=== PATIENT | male | born 1945 | race Caucasian/White ===

== ENCOUNTER 2018-10-30 00:49 | Outpatient (CLI) | payer MEDICARE, OTHER, SELFPAY ==
--- NOTE | 2018-10-30 13:15 | DI.CTLCSR_ITS ---
SYMPTOMS/DIAGNOSIS: CIGARETTE SMOKER, F17.210 CT CHEST, LOW DOSE LUNG CANCER SCREENING PROTOCOL: CT examination of the chest was performed utilizing low dose lung cancer screening protocol. Images obtained through the upper abdomen show unremarkable appearance of visualized portions of liver, spleen and pancreas and a previously described large left renal cyst seen on CT of 06/02/13. No mediastinal mass or adenopathy seen. Right clavicle fixation hardware noted in position. Tracheobronchial tree appears intact. Lungs show diffuse central lobular emphysematous changes, most marked in the lung apices. No pleural effusion. No pulmonary mass, nodule or consolidation. CONCLUSION: Severe emphysematous changes. No pulmonary nodule identified. Category 1. Continue annual screening with LDCT in 12 months. Lung-RAD Category: Category 1- Negative Lung- RAD Management of Findings: Continue annual LDCT screening in 12 months
== END 2018-10-30 01:09 ==
PROVIDERS: PCP Family Medicine; Visit Provider Family Medicine
DX: Z12.2 Encounter for screening for malignant neoplasm of respiratory organs (principal); F17.210 Nicotine dependence, cigarettes, uncomplicated; J43.8 Other emphysema
CPT/HCPCS: G0297

== ENCOUNTER → 2018-12-17 10:42 | Outpatient (BNVA) | payer MEDICARE, OTHER, SELFPAY | PROVIDERS: PCP Family Medicine; Referring Provider Family Medicine; Visit Provider Physical Therapy Assistant | DX: Z12.11 Encounter for screening for malignant neoplasm of colon (principal); Z86.010 Personal history of colon polyps; J44.9 Chronic obstructive pulmonary disease, unspecified; F17.210 Nicotine dependence, cigarettes, uncomplicated ==

== ENCOUNTER 2018-12-31 09:46 | Outpatient (CLI) | payer MEDICARE, OTHER, SELFPAY | END 2018-12-31 10:06 | PROVIDERS: PCP Family Medicine; Visit Provider Surgery | DX: Z12.11 Encounter for screening for malignant neoplasm of colon (principal); Z86.010 Personal history of colon polyps; F17.210 Nicotine dependence, cigarettes, uncomplicated; J44.9 Chronic obstructive pulmonary disease, unspecified; E78.5 Hyperlipidemia, unspecified; Z01.810 Encounter for preprocedural cardiovascular examination; I10 Essential (primary) hypertension | CPT/HCPCS: 93005; 93010 ==

== ENCOUNTER 2019-01-08 06:09 | Day surgery (SDC) | payer MEDICARE, OTHER, SELFPAY ==
[2018-12-31 10:19] VITALS: BP 107/76; PULSE 73; RESP 18; TEMP 36.4; O2SAT 98
[2019-01-08 06:15] VITALS: BP 103/70; PULSE 79; RESP 20; TEMP 36.5; O2SAT 97
[2019-01-08] MEDS: Lactated Ringers 1,000 ML 80 ML IV (06:52)
--- NOTE | 2019-01-08 07:49 | BOWEL_PTH ---
PATIENT: Klever Holguin LOC: [facility] U#:[id number] AGE/SX: 73/M ROOM: RE01/08/[address]: Marya Stinson MD : 1945 BED: DIS: 01/08/2019 SPEC #: [id number] RECD: 01/08/19 12:49 STATUS: LIDIA REQ #: [id number] SMILEY: 01/08/19 07:[address]: Marya Stinson DEPT: Surgical Specimen RECD BY: Kaylah Stafford ENTERED: 01/08/19 12:49 SP TYPE: Bowel OTHR DR: Peter Boone Tissues: 1 - BIOPSY BOWEL 2 - BIOPSY BOWEL Procedures: GROSS AND MICRO LEVEL 4 Comments: [id number]
--- NOTE | 2019-01-08 08:19 | W.PM.DSUDISC ---
Discharge Plan Disposition Patient Disposition: HOME Condition: Good Discharge Details Attending Provider: Marya Stinson Primary Care Provider: Peter Boone Home Meds and New Rx's Prescriptions: Continued propranolol 80 mg capsule,extended release 24 hr 80 mg PO DAILY RF: 0 aspirin 81 MG tablet,delayed release (DR/EC) 81 mg PO DAILY RF: 0 methocarbamol 750 MG tablet 750 mg PO TID RF: 0 Chantix Continuing Month Yuri 1 MG tablet 1 mg PO BID RF: 0 cholecalciferol (vitamin D3) 2,000 UNIT tablet 2,000 unit PO HS RF: 0 primidone 250 mg tablet 250 mg PO TID Qty: 270 RF: 3 primidone 50 MG tablet 50 mg PO TID RF: 0 Discontinued polyethylene glycol 3350 17 gram/dose powder 238 g PO ONCE Qty: 238 RF: 0 bisacodyl [Dulcolax (bisacodyl)] 5 mg tablet,delayed release (DR/EC) 5 mg PO ONCE Qty: 4 RF: 0 Discharge Instructions Instructions: Colonoscopy (DC) Additional Instructions: Two small polyps were removed. My office will send a letter with biopsy results. Plan for a follow up colonoscopy in three years. Activity:: Activity as Tolerated Diet:: As Tolerated Discharge Orders Discharge Orders: Discharge Order (Routine); Ordered 01/08/19 Ordered By: Marya Stinson
[2019-01-08 08:31] VITALS: BP 95/65; PULSE 70; RESP 16; TEMP 36.6; O2SAT 94
--- NOTE | 2019-01-08 09:49 | ROE_ITS ---
REPORT OF OPERATIVE PROCEDURE DATE OF PROCEDURE January 08, 2019 PREOPERATIVE DIAGNOSIS History of colon polyps. POSTOPERATIVE DIAGNOSES 1. Colon polyps x2. 2. Mild diverticulosis. PROCEDURE Colonoscopy with polypectomy. SURGEON Marya Stinson M.D. ANESTHESIA Monitored Anesthesia Care. INDICATIONS This is a 73-year-old man who had adenomatous polyps removed in 2016. He presents for routine followu p. His mother was treated for colon cancer. PROCEDURE DESCRIPTION He was placed in the left Thomas position. Propofol was titrated to sedation. Digital rectal examinatio n revealed no abnormities. The scope was advanced to the cecum without difficulty. The ileocecal valv e and the appendiceal orifice were clearly identified. His prep was excellent. The scope with slowly withdrawn with no abnormalities seen within the ascending or transverse colon. At the splenic flexure , there was a less than 1-cm polyp that was snared and retrieved for Pathology. There was also a poly p in the sigmoid region that was smaller and removed with snare polypectomy. The patient was noted to have mild diverticular change in the sigmoid region. The rectum was normal, including on retroflexed view. He tolerated the procedure well and was stable to Recovery. He will need a followup colonoscopy in three years. CC: Peter Boone M.D.
== END 2019-01-08 09:10 | disposition home or self-care (01) ==
PROVIDERS: PCP Family Medicine; Visit Provider Surgery
PROC: 0DJD8ZZ Inspection of Lower Intestinal Tract, Via Natural or Artificial Opening Endoscopic (ICD-10-PCS; CPT 45378; principal; 2019-01-08 07:30)
DX: Z12.11 Encounter for screening for malignant neoplasm of colon (principal); Z86.010 Personal history of colon polyps; D12.3 Benign neoplasm of transverse colon; D12.5 Benign neoplasm of sigmoid colon; K57.30 Diverticulosis of large intestine without perforation or abscess without bleeding; J44.9 Chronic obstructive pulmonary disease, unspecified; F17.210 Nicotine dependence, cigarettes, uncomplicated; G47.33 Obstructive sleep apnea (adult) (pediatric)
CPT/HCPCS: 45385; 88305

== ENCOUNTER 2020-02-11 09:11 | Emergency (ER) | payer MEDICARE, OTHER, SELFPAY ==
[2020-02-11 09:16] VITALS: BP 119/90; PULSE 85; RESP 18; TEMP 36.5; O2SAT 99
--- NOTE | 2020-02-11 09:24 | ED.GENADUL_ITS ---
Discharge Plan Disposition Patient Disposition: HOME Condition: Stable Discharge Details Chief Complaint: Orthopedic Clinical Impression: Fall, Contusion of knee, left Primary Care Provider: Peter Boone ED Provider: Gina Gifford Home Meds and New Rx's Prescriptions: Continued propranolol 80 mg capsule,extended release 24 hr 80 mg PO DAILY RF: 0 aspirin 81 MG tablet,delayed release (DR/EC) 81 mg PO DAILY RF: 0 methocarbamol 750 MG tablet 750 mg PO TID RF: 0 Chantix Continuing Month Yuri 1 MG tablet 1 mg PO BID RF: 0 cholecalciferol (vitamin D3) 2,000 UNIT tablet 2,000 unit PO HS RF: 0 primidone 250 mg tablet 250 mg PO TID Qty: 270 RF: 3 primidone 50 MG tablet 50 mg PO TID RF: 0 Discharge Instructions Instructions: Contusion in Adults (ED), Knee Pain (ED) Additional Instructions: Rest, ice, use Art wrap, elevation when sitting or laying down. Today your x- rays were within normal limits. Follow up with primary care provider in 3-5 days. Return to ED sooner if any worsening or concerns. Increase oral fluids. Please take Tylenol with food every 4-6 hours as needed for pain and swelling. Referrals: Peter Boone [Primary Care Provider] - Medical Decision Making 74-year-old male presents to the ER with left knee pain. Patient states that he stood up from a sitting position approximately 2 weeks ago became dizzy and fell forward onto his bilateral knees. Since then he has been complaining of intermittent left knee pain. Denies any other falls, denies chest pain, shortness of breath or any other injuries. Upon initial exam he does have a contusion noted to the medial aspect of his left anterior knee. No obvious deformity, swelling or crepitus palpated. Does have mild tenderness with passive range of motion. Patient was ambulatory upon arrival to the ER. He states that he had a PCP appointment today which they canceled told him to come to the ER. Patient is a smoker does have a history of COPD, sleep apnea, essential tremor, chronic back pain and hyperlipidemia. 04 11: This time three-view x-ray of left knee ordered, offered Tylenol which patient declined at this time. No further work-up needed at this time due to no complaints of chest pain, shortness of breath or any other symptoms. EXAM: XR KNEE LT 3V AP,LAT,ESEQUIEL CLINICAL HISTORY: fall 2 weeks ago, r/o fracture. TECHNIQUE: 2D digital imaging was performed. COMPARISON: No exams were available for comparison FINDINGS: BONES: No acute fracture is present. No bony destructive lesion is seen. There is spurring at the quadriceps insertion on the patella. JOINTS: The joint spaces are well maintained. The knee is normally aligned. No joint effusion is seen. SOFT TISSUE: Vascular calcifications. IMPRESSION: No acute abnormality. He was given an Art bandage prior to discharge ambulatory in department discussed home care including rest, ice, compression, elevation and changing positions from a sitting to standing moving slowly. Discussed strict return instructions, verbalized understanding. HPI General Mode of arrival: ambulatory . Date/Time Provider Initiated Documentation: 02/11/20 09:13 . Limitations to Documentation: physical limitation (Hard of hearing) . Information obtained by: patient . HPI Narrative: 74-year-old male presents to the ER with left knee pain. Patient states that he stood up from a sitting position approximately 2 weeks ago became dizzy and fell forward onto his bilateral knees. Since then he has been complaining of intermittent left knee pain. Denies any other falls, denies chest pain, shortness of breath or any other injuries. Upon initial exam he does have a contusion noted to the medial aspect of his left anterior knee. No obvious deformity, swelling or crepitus palpated. Does have mild tenderness with passive range of motion. Patient was ambulatory upon arrival to the ER. He states that he had a PCP appointment today which they canceled told him to come to the ER. Patient is a smoker does have a history of COPD, sleep apnea, essential tremor, chronic back pain and hyperlipidemia. Related Data Home Medications Medication Instructions Recorded Confirmed aspirin 81 mg PO DAILY tab-cap 12/29/12 01/08/19 Chantix Continuing Month Yuri 1 mg PO BID tab-cap 11/10/14 01/08/19 cholecalciferol (vitamin D3) 2,000 unit PO HS 11/10/14 01/08/19 methocarbamol 750 mg PO TID tab-cap 11/10/14 01/08/19 primidone 50 mg PO TID 03/14/17 01/08/19 propranolol 80 mg capsule,24 80 mg PO DAILY 11/25/18 01/08/19 hr,extended release primidone 250 mg tablet 250 mg PO TID #270 tab-cap 12/17/18 01/08/19 Allergies Allergy/AdvReac Type Severity Reaction Status Date / Time aspirin AdvReac Intermediate GI UPSET Verified 12/17/18 10:57 General Stated Complaint: Orthopedic NAWAF: 4 Review of Systems Narrative: Constitutional: Negative for weight loss, alert and oriented, well groomed, normal body habitus, appears comfortable. HEENT: Denies trauma, headaches, blurry vision, nasal discharge, sore throat, trouble swallowing. Chest: Denies chest pain, palpitations, irregular rhythm, hypertension. Respiratory: Denies Shortness of breath, hemoptysis. GI: Denies abdominal pain, nausea, vomiting, diarrhea, constipation. : Denies dysuria, hematuria, flank pain, rectal bleeding. Musculoskeletal: Contusion noted to his left anterior knee status post fall 2 weeks ago. Neuro: Denies recurrent dizziness, blurry vision, weakness, syncope, headache or facial numbness. Hematologic: Denies easy bruising, intolerance to heat or cold, hair loss. [facility] Medical History Chronic low back pain (Chronic) Cigarette smoker (Chronic) Colon polyps (Resolved) 01/08/19 w/ Dr Marya Stinson, [facility], tubular adenoma, repeat 3 yrs 01/29/16 w/ Dr. Aleyda Irizarry, 4 tubular adenoma's, repeat 3 years COPD (chronic obstructive pulmonary disease) (Chronic) Hearing loss (Chronic) History of broken collarbone (Acute) right collarbone fx with hardware- per pt 6 years ago Hyperlipidemia (Chronic) Sleep apnea (Chronic) Tremor (Chronic) Surgical History Hx of thumb surgery (Acute) [address]. [address] in [address] Family History Mother Colon cancer Social History Smoking/Tobacco Use Status: Former Tobacco Use Tobacco: How many years used: 50 Alcohol Intake: never Drug use: Never Substance use type: does not use Details: QUIT SMOKING A MONTH AGO, CURRENTLY USING CHANTIX TO QUIT Do you feel safe at home: Yes Do you feel safe in your relationship?: Yes Additional Social history: Exam Narrative Exam Narrative: Constitutional: Alert and oriented x3. Appears stated age. Normal body habitus. Head: Normocephalic, no trauma. Eyes: Pupils PERRLA, Red reflex noted, EOM's intact. Eyelids symmetrical without lesions, discharge, or swelling. ENT: Bilateral TM's WNL, External ear normal to inspection, no mastoid TTP, swelling, or erythema, Nasal turbinates WNL, no nasal discharge. Normal dentition, Posterior pharynx WNL, no exudate. Chest: RRR, Normal S1, S2, distal pulses intact. Resp: Lungs clear to auscultation bilaterally, no wheezes, rales, or rhonchi. Musculoskeletal: Normal gait, 5/5 strength to all four extremities. No crepitus, swelling, erythema, or deformity noted to left knee. Skin: Contusion noted to medial aspect of left anterior knee. Capillary refill less than 2 sec. Neurologic: Cranial nerves II-XII intact. Alert and oriented x 3. DTR's intact. Hematologic/Lymphatic: No ecchymosis, no lymphadenopathy. Course Vital Signs Vital signs: Vital Signs Temperature 36.5 C 02/11/20 09:16 Pulse 85 02/11/20 09:16 Respiratory Rate 18 02/11/20 09:16 Blood Pressure 119/90 02/11/20 09:16 Pulse Oximetry 99 02/11/20 09:16 Temperature 36.5 C 02/11/20 09:16 Temperature Source Skin 02/11/20 09:16 Pulse 85 02/11/20 09:16 Respiratory Rate 18 02/11/20 09:16 Respiratory Effort 02/11/20 09:21 Blood Pressure 119/90 02/11/20 09:16 Pulse Oximetry 99 02/11/20 09:16 Oxygen Delivery Method Room Air 02/11/20 09:16 Oxygen Flow Rate 0 02/11/20 09:16 Pain Level 6 02/11/20 09:16 Comment 02/11/20 09:16
--- NOTE | 2020-02-11 09:49 | DI.RAD_ITS ---
EXAM: XR KNEE LT 3V AP,LAT,ESEQUIEL CLINICAL HISTORY: fall 2 weeks ago, r/o fracture. TECHNIQUE: 2D digital imaging was performed. COMPARISON: No exams were available for comparison FINDINGS: BONES: No acute fracture is present. No bony destructive lesion is seen. There is spurring at the quadriceps insertion on the patella. JOINTS: The joint spaces are well maintained. The knee is normally aligned. No joint effusion is see n. SOFT TISSUE: Vascular calcifications. IMPRESSION: No acute abnormality. DATA REPOSITORY: RADIATION DOSE DELIVERED:
== END 2020-02-11 10:16 | disposition home or self-care (01) ==
LOC: ER 10:05
PROVIDERS: Emergency Provider Registered Nurse Emergency; PCP Family Medicine
DX: S80.02XA Contusion of left knee, initial encounter (principal); W19.XXXA Unspecified fall, initial encounter; J44.9 Chronic obstructive pulmonary disease, unspecified; F17.210 Nicotine dependence, cigarettes, uncomplicated
CPT/HCPCS: 73562; 99283

== ENCOUNTER 2020-03-29 15:22 | Outpatient (REF) | payer MEDICARE, OTHER, SELFPAY ==
[2020-03-29 20:01] LABS: HCT 37.6 % (40.0-50.0); HGB 11.8 g/dL (13.5-17.5); MCH 26.8 pg (27.0-33.0); MCHC 31.4 % (32.0-36.0); MCV 85.5 fL (80-95); MPV 10.6 fL (8.0-11.0); Platelet Count 327 10^3/uL (130-400); RDW-SD 47.3 fL; WBC 4.61 10^3/uL (4.4-10.8)
[2020-03-29 20:21] LABS: ALT 25 U/L (16-63); AST 23 U/L (15-37); Albumin 2.9 g/dL (3.4-5.0); Alkaline Phosphatase 69 U/L (46-116); Anion Gap 6.3 mmol/L (3-11); BUN 15 mg/dL (7-18); Bilirubin, Total 0.2 mg/dL (0.2-1.0); CO2 31.7 mmol/L (21.0-32.0); CREATININE 1.02 mg/dL (0.70-1.30); Calcium 9.2 mg/dL (8.5-10.1); Chloride 99 mmol/L (98-107); Glucose 96 mg/dL (74-106); Potassium 4.5 mmol/L (3.5-5.1); Sodium 137 mmol/L (136-145); TSH (W/Ref FT4) 1.82 uIU/mL (0.36-3.74)
== END 2020-03-29 15:42 ==
LOC: NCHCN 15:22
PROVIDERS: PCP Family Medicine; Visit Provider Family Medicine
DX: R63.4 Abnormal weight loss (principal)
CPT/HCPCS: 80053; 85027; 84443

== ENCOUNTER 2020-04-04 01:12 | Outpatient (CLI) | payer MEDICARE, OTHER, SELFPAY ==
[2020-04-04] MEDS: Omnipaque 350 MG/ML 100 ML BTL IJ (15:07)
[2020-04-04] MEDS: Normal Saline Flush 10 ML SYR IVP ×2 (15:08→15:09)
[2020-04-04] MEDS: Normal Saline - Diluent 50 ML VIAL IV (15:08)
--- NOTE | 2020-04-04 15:10 | DI.CT_ITS ---
EXAM: CT CHEST W CLINICAL HISTORY: SMOKER, F17.209,ABNL WT LOSS, R63.4 TECHNIQUE: Imaging Protocol: Axial computed tomography images with coronal and sagittal reformatted images were created and reviewed CONTRAST MATERIAL: Intravenous: Omnipaque 350 Contrast volume:70 mL. COMPARISON: CT CT CHEST LUNG CANCER SCREEN from 10/30/2018 FINDINGS: Tracheobronchial tree: Patent where visualized. Mediastinum and Alma Delia: No dominant adenopathy or fluid collection. Pulmonary parenchyma: No consolidation or dominant measurable mass. Moderately severe centrilobular p ulmonary emphysema is present. Pleura: No effusion or pneumothorax. Heart: The heart is not dilated. Mild coronary artery calcification. No significant pericardial effus ion. Aorta: Thoracic aorta non-dilated. Atherosclerosis. Upper abdomen: Cholelithiasis. No biliary ductal dilatation. A cyst is incompletely imaged in the mi dpole of the left kidney. Lymph nodes: Within normal limits. Bones: Normal. Soft tissues: Unremarkable. IMPRESSION: 1. No evidence of a pulmonary mass or thoracic adenopathy. 2. Moderately severe centrilobular pulmonary emphysema. 3. Atherosclerosis and coronary artery calcification. 4. Cholelithiasis. No biliary ductal dilatation. RADIATION DOSE DELIVERED: 405.96mGy.cm Total DLP DATA REPOSITORY: All CT scans at this facility are submitted to the National Radiology Data Registry (NRDR) Dose Index Registry (DIR) with the [employer] (ACR). RADIATION OPTIMIZATION: All CT scans at this facility use at least one of these dose optimization te chniques: automated exposure control; mA and/or kV adjustment per patient size (includes targeted exa ms where dose is matched to clinical indication); or iterative reconstruction.
== END 2020-04-04 01:32 ==
PROVIDERS: PCP Family Medicine; Visit Provider Family Medicine
DX: J43.2 Centrilobular emphysema (principal); F17.200 Nicotine dependence, unspecified, uncomplicated; R63.4 Abnormal weight loss; K80.20 Calculus of gallbladder without cholecystitis without obstruction
CPT/HCPCS: 71260; J3490

== ENCOUNTER → 2020-04-07 10:23 | Outpatient (BNVA) | payer MEDICARE, OTHER, SELFPAY | PROVIDERS: PCP Family Medicine; Referring Provider Family Medicine; Visit Provider Physical Therapy Assistant | DX: R13.10 Dysphagia, unspecified (principal); J44.9 Chronic obstructive pulmonary disease, unspecified; Z11.59 Encounter for screening for other viral diseases | CPT/HCPCS: 99213 ==

== ENCOUNTER 2020-04-21 01:05 | Outpatient (CLI) | payer MEDICARE, OTHER, SELFPAY ==
--- NOTE | 2020-04-21 09:15 | RT.EKG_ITS ---
APPROVED REPORT Exam: Resting ECG Patient Location: O HR:96 bpm ECG Measurements Heart Rate 96 AXIS SC 141 P 85 QRSd 95 QRS 69 QT 334 T 61 QTc 421 Conclusion Sinus rhythm...normal P axis, V-rate 60- 99
== END 2020-04-21 01:25 ==
PROVIDERS: PCP Family Medicine; Visit Provider Physical Therapy Assistant
DX: Z01.818 Encounter for other preprocedural examination (principal); R13.10 Dysphagia, unspecified; R63.4 Abnormal weight loss
CPT/HCPCS: U0003; 93005; 93010

== ENCOUNTER 2020-04-21 02:15 | Outpatient (CLI) | payer MEDICARE, OTHER, SELFPAY ==
[2020-04-22 20:23] LABS: COVID-19 RT-PCR Result NEGATIVE (Negative)
== END 2020-04-21 02:35 ==
PROVIDERS: PCP Family Medicine; Visit Provider Surgery
DX: Z11.59 Encounter for screening for other viral diseases (principal); Z01.818 Encounter for other preprocedural examination
CPT/HCPCS: U0003

== ENCOUNTER 2020-04-24 06:03 | Day surgery (SDC) | payer MEDICARE, OTHER, SELFPAY ==
[2020-04-24 06:18] VITALS: BP 116/82; PULSE 98; RESP 24; TEMP 36.4; O2SAT 98
[2020-04-24] MEDS: Lactated Ringers 1,000 ML 80 ML IV (06:54)
--- NOTE | 2020-04-24 08:06 | STOM_PTH ---
PATIENT: Klever Holguin LOC: [facility] U#:[id number] AGE/SX: 74/M ROOM: RE04/24/[address]: Avril Birch : 1945 BED: DIS: 04/24/2020 SPEC #: [id number] RECD: 04/24/20 12:46 STATUS: LIDIA REQ #: [id number] SMILEY: 04/24/20 08:[address]: Avril Birch DEPT: Surgical Specimen RECD BY: Kaylah Stafford ENTERED: 04/24/20 12:46 SP TYPE: STOMACH OTHR DR: Peter Boone Tissues: 1 - STOMACH BIOPSY 2 - BIOPSY BOWEL 3 - STOMACH BIOPSY 4 - ESOPHAGUS BIOPSY Procedures: GROSS AND MICRO LEVEL 4 Comments: [id number]
--- NOTE | 2020-04-24 08:24 | W.PM.ENDDOP ---
Date of service: 04/24/20 Time of Service: 08:24 Endoscopy Report DATE OF PROCEDURE: 04/24/20 PRE-OP DIAGNOSIS: dysphagia/wt loss POST-OP DIAGNOSIS: other (Vocal cord paralysis) PROCEDURE: egd + bx SURGEON: Avril Birch ANESTHESIA: GETA ESTIMATED BLOOD LOSS: 1 PATHOLOGY: other COMPLICATIONS: None DISPOSITION: same day PROCEDURE DESCRIPTION: After informed consent was obtained the patient was take to the procedure room and placed in a supine position. Monitors were applied and a time out was done. The patients name, date of , procedure type, allergies to medications and metal in their body was reviewed. A bite block was placed and the patient was sedated. Once sedated and comfortable the gastroscope was advanced through the oropharynx which was grossly normal into the esophagus. as we are passing the scope the oropharynx is interrogated. only his right vocal cord is moving. The left cord is completely paralyzed. Right cord has minimal movement to it. Patient is not protecting his airway, And is most likely truly aspirating when at when he is asleep and probably when he is eating. He appears to be aspirating during the procedure. There are no large gross tumors. Even when he coughs his vocal cords are not closing. The proximal and mid-esophagus were . nl In the distal esophagus there was mild esophagitis. There are no esophageal varices, Diverticula, or stricture apparent. The scope was advanced into the stomach and through the pylorus into the 3rd portion of the duodenum. The duodenum was noted to be nl. Biopsies were done . All specimens were retrieved and no bleeding is noted. The scope was retracted back into the stomach and biopsies were done to rule out H. pylori. There is some mild gastritis at the antrum. He Does have slight bile reflux through the antrum. There were no ulcers. The scope was retroflexed. The cardia and fundus were noted to be normal. There very small a hiatal hernia noted. The scope was retracted back into the esophagus and biopsies were done of the GE junction to rule out Forbes's. The Z line was mild irregular. The scope was removed and the patient was woken up and taken back to [facility] in stable condition. Follow up: Toni pang and [facility] ad[facility] ENT for eval of cords
--- NOTE | 2020-04-24 08:28 | W.PM.DSUDISC ---
Discharge Plan Disposition Patient Disposition: HOME Condition: Fair Discharge Details Reason For Visit: stomach scope Attending Provider: Avril Birch Primary Care Provider: Peter Boone Home Meds and New Rx's Prescriptions: Continued methocarbamol 750 MG tablet 750 mg PO TID RF: 0 Chantix Continuing Month Yuri 1 MG tablet 1 mg PO BID RF: 0 primidone 250 mg tablet 250 mg PO TID Qty: 270 RF: 3 propranolol 120 mg capsule,extended release 24 hr 120 mg PO DAILY RF: 0 acetaminophen 500 mg capsule 1,000 mg PO Q6H PRNRF: 0 cholecalciferol (vitamin D3) 50 mcg (2,000 unit) capsule 50 mcg PO DAILY RF: 0 Discharge Instructions Additional Instructions: Findings:left vocal cord does not move Right vocal cord has minimal function No airway protecton/chronic aspiration Follow up: speach therapy ENT Please call if you develop: fevers >101.5 Nausea or Vomiting Abdominal pain that is not transient DAY SURGERY UNIT POST COLONOSCOPY INSTRUCTIONS 1. Because there will be medication in your system for the next 24 hours, you may feel a little sleepy. Your coordination will be affected. Therefore: a. Do not drive or operate dangerous equipment for 24 hours. b. Do not drink alcohol beverages for 24 hours (not even beer). c. Plan to go home and rest for the day. 2. Generally there are no restrictions on your activity after a day or so has gone by, but you may feel a bit fatigued for a few days. 3 After you arrive home you may have a light meal and return to a normal diet as you can tolerate it without feeling sick to your stomach. 4. After surgery, you may feel pain or discomfort. This should be only transient, but if it persists please contact your doctor. 5. If there are any questions regarding the findings of your procedure, please feel free to contact your doctor. 6. If you are unable to contact your doctor with a problem, contact the hospital at [phone]. 7. Continue all your regular medications unless directed otherwise. I understand the above instructions and have no questions. Signature of Patient or Responsible Adult Escort Date/Time Name of Responsible Adult Escort Signature of Nurse Date/Time Activity:: No strenuous activity x24 hours Diet:: Dysphagia diet Discharge Orders Discharge Orders: Discharge Order (Routine); Ordered 04/24/20 Ordered By: Avril Birch DS: Diagnosis Discharge Diagnosis (1) Vocal cord paralysis: Status: Acute (2) Vocal cord dysfunction: Status: Acute (3) COPD (chronic obstructive pulmonary disease): Status: Chronic (4) Tobacco abuse: Status: Chronic (5) Sleep apnea: Status: Chronic (6) Dysphagia: Status: Acute (7) Weight loss: Status: Acute
[2020-04-24 08:50] VITALS: BP 123/84; PULSE 73; RESP 24; TEMP 36.5; O2SAT 98
== END 2020-04-24 09:20 | disposition home or self-care (01) ==
PROVIDERS: PCP Family Medicine; Visit Provider Surgery
PROC: 0DJ68ZZ Inspection of Stomach, Via Natural or Artificial Opening Endoscopic (ICD-10-PCS; CPT 43235; principal; 2020-04-24 07:30)
DX: R13.10 Dysphagia, unspecified (principal); R63.4 Abnormal weight loss; J38.01 Paralysis of vocal cords and larynx, unilateral
CPT/HCPCS: 43239; 88305

== ENCOUNTER 2020-05-17 01:15 | Outpatient (CLI) | payer MEDICARE, OTHER, SELFPAY ==
--- NOTE | 2020-05-17 | DI.CT_ITS ---
EXAM: CT NECK W CLINICAL HISTORY: SMOKER,PHARYNGEAL DYSPHAGIA,R13.13,MASS OF VALLECULA,J38.7,WT LOSS. TECHNIQUE: Imaging Protocol: Axial computed tomography images with coronal and sagittal reformatted images were created and reviewed. CONTRAST MATERIAL: Intravenous: Omnipaque 350 Contrast volume:100 mL COMPARISON: No exams were available for comparison FINDINGS: Orbits and orbital soft tissues: Within normal limits. Visualized paranasal sinuses: There is near complete opacification of the left maxillary sinus. Rem aining visualized paranasal sinuses are clear. Nasopharynx: Within normal limits. Oropharynx: Within normal limits. Hypopharynx: The may be a slight asymmetry in size of the soft tissues at the base of the tongue on the left. A mass cannot be excluded. The epiglottis appears grossly unremarkable. Vallecular and p iriform sinuses are otherwise unremarkable. Larynx: Within normal limits. Retropharyngeal space: Within normal limits. Parotids/submandibular: Within normal limits. Thyroid gland: Within normal limits. Lymphadenopathy: There is scattered lymph nodes seen along the level one to level three all measurin g less than 8 mm in short axis diameter which are physiologic in nature. Trachea: Within normal limits. Lung apices: Marked centrilobular emphysematous changes are seen in the lung apices. No focal conso lidating infiltrates. No pulmonary nodules. Bones: Degenerative changes are seen in the spine. Carotids/Jugular: Mild atherosclerosis is seen in the proximal left internal carotid artery. No sig nificant stenosis or occlusion is present. Soft tissues: Within normal limits. IMPRESSION: 1. Question of some enlargement seen in the base of the tongue on the left anterior to the vallecula. Mass cannot be excluded. 2. No significant cervical adenopathy. 3. Left maxillary sinusitis. RADIATION DOSE DELIVERED: 332.02mGy.cm Total DLP 332.02mGy.cm Total DLP DATA REPOSITORY: All CT scans at this facility are submitted to the National Radiology Data Registry (NRDR) Dose Index Registry (DIR) with the [employer] (ACR). RADIATION OPTIMIZATION: All CT scans at this facility use at least one of these dose optimization te chniques: automated exposure control; mA and/or kV adjustment per patient size (includes targeted exa ms where dose is matched to clinical indication); or iterative reconstruction.
[2020-05-17 13:14] LABS: BUN 14 mg/dL (7-18); CREATININE 0.87 mg/dL (0.70-1.30)
[2020-05-17] MEDS: Normal Saline - Diluent 50 ML VIAL IV (14:17)
[2020-05-17] MEDS: Omnipaque 350 MG/ML 100 ML BTL IJ (14:18)
== END 2020-05-17 01:35 ==
PROVIDERS: Otolaryngology Otolaryngology/Facial Plastic Surgery; PCP Family Medicine; Visit Provider Physician Assistant
DX: R13.13 Dysphagia, pharyngeal phase (principal); F17.210 Nicotine dependence, cigarettes, uncomplicated; J38.7 Other diseases of larynx; R63.4 Abnormal weight loss; J32.0 Chronic maxillary sinusitis
CPT/HCPCS: 70491; 84520; 82565; J3490

== ENCOUNTER 2020-06-01 04:43 | Outpatient (CLI) | payer MEDICARE, OTHER, SELFPAY ==
[2020-06-02 22:06] LABS: SARS-CoV-2 RNA Not Detected (NotDetected); SARS-CoV-2 RNA Source Nasal/Nares
== END 2020-06-01 05:03 ==
PROVIDERS: PCP Family Medicine; Visit Provider Family Medicine
DX: Z11.59 Encounter for screening for other viral diseases (principal); Z01.818 Encounter for other preprocedural examination
CPT/HCPCS: U0003

== ENCOUNTER 2020-06-05 01:45 | Outpatient (CLI) | payer MEDICARE, OTHER, SELFPAY ==
--- NOTE | 2020-06-05 08:30 | DI.RAD_ITS ---
TECHNIQUE: Modified barium swallow was performed in conjunction with speech pathology. CONTRAST MATERIAL: Oral barium was administered in multiple consistencies. A barium tablet was als o administered. COMPARISON: No exams were available for comparison FINDINGS: There was mildly sluggish oral transit. There was mild laryngeal penetration with thin consistencies . Vallecular pooling was seen. The barium tablet became lodged in the left vallecula and could not be dislodged with various maneuvers and additional swallows of thin or thick barium. The esophagus s hows no evidence of stricture. Esophageal motility appeared normal. Speech pathology report to follow. . . . IMPRESSION: Barium tablet became lodged in the left vallecula. Minimal laryngeal penetration without diana aspir ation.
--- NOTE | 2020-06-05 14:38 | ST.MBS ---
Modified Barium Swallow Date of service: 06/05/20 Study Findings: HPI: Pt is a 74 year old male with pmhx significant for COPD, recent pharyngeal dysphagia, hyperlipidemia, chronic back pain, essential tremor, sleep apnea, tobacco use, tubular adenoma, and pulmonary contusion; patient referred for [facility]ACHINE [employer]ATHEREDGER AND REDUCER clinical swallowing evaluation given 30 lb weight loss over the last approx. 3 months, reported approx. 100 lb weight loss in last few years; recent EGD with Dr. Birch (04/24) notable for concern for dysphagia/aspiration and small hiatal hernia; more recently, patient underwent transnasal flexible laryngoscopy with Dr. Belle (05/08), which showed midline approximation of true vocal cords with excellent excursion, bilaterally symmetric true vocal cord movement, however could not rule out vallecular mass. Patient denies history of aspiration pneumonia, does endorse hx of walking pneumonia in or but none since then. Social History/Home Situation: Pt lives independently in home setting, does have support from step daughterMaria Esther Subjective patient interview: Pt endorses the following: bubble pops up from the right side, I push it back in to make sure I can breathe - unclear if this is in reference to hiatal hernia noted on EGD things get stuck all the time [motions to laryngeal area] sometimes I do this to swallow and it helps, but not all the time [tilts head backwards] I had been eating regular foods before without a problem, kiswahili fries, chicken fettucine, hot dogs/burgers - I can't do that now. this all seemed to start since my accident [patient referring to [facility], ?2012] Patient reports pharyngeal globus with large pills as well as medium sized pills; endorses that he takes pills with thin liquids. Patient also reports he has been eating strawberries, cut in quarters, which have been going down fine , as well as mashed potatoes with pieces of baloney. Patient appears to be sensate to retained 13 mm barium pill in vallecular space during study today. Patient able to report that pharyngeal globus resolved with multiple swallows after study had been completed, however left VM with MACHINE FEATHEREDGER AND REDUCER later in the evening to report that he had coughed the tablet back up later. OBJECTIVE: Predisposing dysphagia risk factors: COPD Clinical signs of possible chronic dysphagia: consistent pharyngeal globus with most solids; significant unintentional weight loss Precipitating dysphagia risk factors / triggering event: unknown at this time Cranial nerve exam / Oral Motor: CN V: facial sensation intact to LT; lingual/labial protrusion - symmetrical; lingual/labial coordination/ROM - WFL CN VII: WFL CN IX/X: palatal elevation - symmetrical; VQ mildly rough, otherwise WFL CN XII: Intact b/l Dentition/Oral Structures/Hygiene: edentulous; oral hygiene appears adequate Language: verbal expression/fluency, naming, repetition, and auditory comprehension WFL Hearing: Significantly Impaired Mental Status: AAOx3, recall of current events intact Speech: WFL Laryngeal function exam: Secretions: WFL Vocal quality: mild roughness (hx smoking) MPT: 10 secs (reduced) S/Z: DNT Pitch range: WFL Cough: (volitional) perceptually WFL Patient assessed by MACHINE FEATHEREDGER AND REDUCER in outpatient setting prior to this exam for clinical swallowing evaluation and patient motivational interview. EAT-10: 13 Videofluoroscopic Swallow Study (VFSS) was conducted in the lateral and irqbschm-ej-zwkiycqfy projections by Speech-Language Pathologist, in collaboration with Radiologist, to evaluate oropharyngeal swallow function. Anatomic view under fluoroscopy: WFL PO barium contrast trials: Oral barium Oral water soluble contrast was administered. Specifically, Varibar thin liquid (40% w/v), Varibar nectar (mildly thick) liquid (40% w/v), Varibar thin honey (moderately-thick) liquid (40% w/v), Varibar pudding (40% w/v), and solid 13 mm barium tablet. Oral phase findings: Lip closure: WFL Tongue control: WFL Bolus preparation: WFL Oral residue: N/A Pharyngeal phase findings: Initiation of swallow: mildly reduced Velar elevation: WFL Laryngeal elevation: reduced Anterior hyoid excursion: reduced Epiglottic movement: Significantly reduced epiglottic inversion Laryngeal vestibule closure: reduced Pharyngeal stripping wave: reduced Pharyngeal contraction: reduced PES opening: WFL BOT retraction: reduced Pharyngeal residue: moderate vallecular residue with thicker liquid viscosities, significant difficulty w clearance of solid texture (13 mm barium tablet) from L vallecular space Esophageal findings: NOTE: This study was performed for interpretation only of the oropharyngeal and pharyngoesophageal domains of swallowing. It is not intended to diagnose any other radiologic abnormalities or substitute for a formal esophagram study. Esophageal clearance: mild, occasional esophageal retention Small hypertrophy noted at level of C5-C6, resulting in occasional retention of material at level of the cricopharyngeus; material consistently cleared with subsequent swallows. 8-point Penetration-Aspiration Scale (PAS) [place] Pharyngeal Residue Severity Rating Scale [Valleculae/Pyriform Sinus] Bolus / IDDSI Level: 0 - Thin liquid PAS: 2 Oksana: 2/ 2 - Mildly Thick PAS: 1 Oksana: 2/2 3- Moderately thick/Liquidised PAS: 1 Oksana: 3/ 4 - Extremely Thick/Pureed PAS: 1 Oksana: 3/ 13mm barium pill PAS: 1 Oksana: / *barium tablet remained in L vallecular space despite all trialed compensatory strategies as outlined below Compensatory Swallow Strategies: Reduced bolus volume - successful in reducing laryngeal penetration of trialed liquids Secondary swallow x1 - successful in clearing trace liquid residue from vallecular space, unsuccessful in clearing tablet from vallecular space Secondary swallow x2 -unsuccessful in clearing tablet from vallecular space Thin liquid wash - unsuccessful in clearing tablet from vallecular space [place] liquid wash - unsuccessful in clearing tablet from vallecular space Honey liquid wash - unsuccessful in clearing tablet from vallecular space Chin tuck -unsuccessful in clearing tablet from vallecular space Head turn to left with chin tuck - unsuccessful in clearing tablet from vallecular space Head turn to the right with chin tuck - unsuccessful in clearing tablet from vallecular space Chin tuck with hard swallow -unsuccessful in clearing tablet from vallecular space Raised chin - unsuccessful in clearing tablet from vallecular space Thin Liquid wash x2 - unsuccessful in clearing tablet from vallecular space Dysphagia Outcome and Severity Scale (SUZETTE): 3 Moderate Dysphagia Assessment: Swallow efficiency is significantly impaired; swallow safety is grossly preserved with all trialed consistencies today. Moderate pharyngeal dysphagia characterized by mild laryngeal penetration with thin consistencies, (no aspiration noted with any trialed textures; vallecular pooling/aggregation is WNL), moderate-severe vallecular residue and mild-moderate pyriform sinus residue, gradual increase in severity of residue as viscosity of trials were increased. Of note: regular solid texture not trialed today, as barium tablet remained in the left vallecular space and pt was unable to clear with various compensatory maneuvers, thin/mildly thick/moderately thick/pudding thick wash, and/or subsequent effortful swallows, postural head/neck adjustments. Patient was able to report clearance of barium tablet once study had ended, approx 5 minutes afterwards with successive swallows - however, patient then reported 'coughing tablet back up' hours after study. Small hypertrophy noted at level of C5-C6, resulting in occasional retention of material at level of the cricopharyngeus; material consistently cleared with subsequent swallows. Dysphagia presentation and reported vallecular fullness (of unknown etiology at this time) is likely related to reduced laryngeal elevation and reduced anterior hyoid excursion during the swallow, resulting in significantly reduced epiglottic inversion (epiglottis tilts superiorly during swallow, encasing most solid bolus trials between base of tongue/anterior surface of epiglottis); forward-leaning head/neck posture is also likely a contributung factor; weakness in pharyngeal stripping wave and base of tongue strength may also be contributing factor, and may be at least partially amenable to trial of swallowing therapy. Patient is at moderate risk for aspiration-related pulmonary complication, given potential for effected swallow-breath coordination in context of COPD, however patient does appear to have good oral hygiene & presumed immunocompetence; maintenance of physical mobility is likely to further reduce this risk. Provided education to patient re: anatomy/physiology of swallowing mechanism, compensation techniques and overt s/sx to monitor for re: pill dysphagia, risk management as outlined below Patient demonstrates comprehension and agreement with recommendations and plan as outlined today. Plan Diet recommendation: Combination of IDDSI Levels 4/5 (ie, pureed solids, minced & moist/ground solids), 0-thin liquids diet as tolerated Risk management: Oral hygiene at least 2x/day. PO intake only while upright; Encourage physical mobility as tolerated. Small bites/sips; Thin liquid wash, alternate bites/sips whenever possible. Multiple swallows per bolus, follow with thin and/or mildly thick liquid wash and effortful swallow to clear vallecular residue prior to subsequent bite Take pills 1 at a time; may consider taking pills with pureed texture, if allowed to take with food per medication administration guidelines. May also consider alternate formulations of medications (vs larger tablets/pills) as advised by MD. *May benefit from slight posterior tilt (from torso vs from head/neck) to compensate for postural misalignment when attempting to clear residue from vallecular space, however unable to identify effectiveness of this strategy during fluoro today. Specialist referrals: Patient may benefit from Director Product Development given hx of significant unintended weight loss and modified texture diet as further diagnostics are explored Ancillary tests: N/A Therapy: Outpatient MACHINE FEATHEREDGER AND REDUCER f/u once patient is seen by ENT Goal: Patient will return demonstration of indicated swallow exercises and use of effective strategies to improve swallowing efficiency and reduce risk of airway compromise as appropriate per results of VFSS/MBSS today Therapy: Recommend subsequent outpatient session with MACHINE FEATHEREDGER AND REDUCER to review results of today's exam and develop treatment plan as appropriate. Thank you for allowing me to take part in this patient's care. Please feel free to contact me with any questions/concerns. Aida Samuels MA [facility]-MACHINE FEATHEREDGER AND REDUCER Speech Language Pathologist MACHINE FE[employer]ER[employer]GER AND REDUCER Service Code(s): Modified Barium Swallow Study 31785
== END 2020-06-05 02:05 ==
PROVIDERS: PCP Family Medicine; Visit Provider Surgery
DX: R13.13 Dysphagia, pharyngeal phase (principal)
CPT/HCPCS: 92526; 74221

== ENCOUNTER 2021-03-14 15:34 | Outpatient (REF) | payer MEDICARE, OTHER, SELFPAY ==
[2021-03-14 15:52] LABS: HCT 37.2 % (40.0-50.0); HGB 11.7 g/dL (13.5-17.5); MCH 27.4 pg (27.0-33.0); MCHC 31.5 % (32.0-36.0); MCV 87.1 fL (80-95); MPV 11.3 fL (8.0-11.0); Platelet Count 334 10^3/uL (130-400); RBC 4.27 10^6/uL (4.36-5.78); RDW 15.7 % (11.8-14.1); RDW-SD 49.5 fL; WBC 4.99 10^3/uL (4.4-10.8)
[2021-03-14 15:59] LABS: Iron 35 ug/dL (65-175); Total Iron Binding Capacity 226 ug/dL (250-450); Transferrin Sat 15 % (20-55)
[2021-03-14 16:26] LABS: CREATININE 0.9 mg/dL (0.70-1.30); Vitamin B12 403 pg/mL (193-986)
== END 2021-03-14 15:35 | disposition home or self-care (01) ==
LOC: NCHCN 15:34
PROVIDERS: PCP Family Medicine; Visit Provider Family Medicine
DX: D64.9 Anemia, unspecified (principal); Z00.00 Encounter for general adult medical examination without abnormal findings
CPT/HCPCS: 85027; 82565; 82607; 83540; 83550

== ENCOUNTER 2021-04-06 04:07 | Outpatient (CLI) | payer MEDICARE, OTHER, SELFPAY ==
--- NOTE | 2021-04-06 13:35 | DI.CTLCSR_ITS ---
Exam(s) CT CHEST LUNG CANCER SCREEN EXAM: CT CHEST LUNG CANCER SCREEN CLINICAL HISTORY: CURRENT SMOKER, F17.210 TECHNIQUE: Imaging Protocol: Axial computed tomography images with coronal and sagittal reformatted images were created and reviewed COMPARISON: CT CHEST ABD PELVIS WITH CONTRAST from 01/07/2013 CT CHEST ABD PELVIS WITH CONTRAST from 01/07/[address] CHEST W from 04/04/2020 FINDINGS: Tracheobronchial tree: Patent where visualized. Pulmonary parenchyma: No consolidation or dominant measurable mass. Centrilobular emphysema. Lung Nodules: None. Mediastinum and Alma Delia: No dominant adenopathy or fluid collection. Pleura: No effusion or pneumothorax. Heart: The heart is not dilated. Moderate coronary artery calcification. No pericardial effusion. Aorta: Thoracic aorta non-dilated.Atherosclerosis. Upper abdomen: The superior aspect of a simple cyst in the superior pole of the left kidney is again noted. No follow-up is recommended. Soft Tissues: Unremarkable. Bones: A side plate and screws are seen within the old right healed clavicular fracture. IMPRESSION: No pulmonary nodules. Lung RADS Cat 1 - Negative: No nodules and definitely benign nodules Lung-RADS 1.0 CATEGORIES: Category 0 - Prior chest CT exam(s) being located for comparison. Category 1 - Annual screening in 12 months. No nodules or definitely benign nodules. Category 2 - Annual screening in 12 months. Benign appearance. Nodules with low likelihood of becomin g active cancer. Category 3 - 6-month follow-up. Probably benign. Short-term follow-up suggested. Nodules with low lik elihood of becoming active cancer. Category 4A - 3-month follow-up and CT/PET if >8 mm in size. Suspicious finding. Findings which requi re additional testing. Category 4B - Findings which require additional testing and tissue sampling. Suspicious finding. Modifier S- Potentially clinically significant finding. (Non lung cancer) RADIATION DOSE DELIVERED: 85.92mGy.cm Total DLP 1.84mGy CTDIvol 85.92mGy.cm Total DLP 1.84mGy CTDIvol DATA REPOSITORY: All CT scans at this facility are submitted to the National Radiology Data Registry (NRDR) Dose Index Registry (DIR) with the [employer] (ACR). RADIATION OPTIMIZATION: All CT scans at this facility use at least one of these dose optimization te chniques: automated exposure control; mA and/or kV adjustment per patient size (includes targeted exa ms where dose is matched to clinical indication); or iterative reconstruction.
== END 2021-04-06 04:27 ==
PROVIDERS: PCP Family Medicine; Visit Provider Family Medicine
DX: F17.210 Nicotine dependence, cigarettes, uncomplicated (principal); Z12.2 Encounter for screening for malignant neoplasm of respiratory organs
CPT/HCPCS: 71271

== ENCOUNTER 2021-09-11 11:41 | Outpatient (REF) | payer OTHER, SELFPAY ==
--- OUTSIDE RECORDS SUMMARY | 2021-09-11 11:42 | XMS_ITS ---
:1945 Author Care Team Providers Name Role Phone ANUJ SOTO MD ([facility]) Primary Care Provider [phone] [facility] OTHER [phone] Allergies Code Code System Name Reaction Severity Status Onset NKDA ? Medications Name Status Start Date Stop Date ? ? acetaminophen 500 mg capsule Active ? Not available Take 2 capsules every 6 hours by oral route as needed. aspirin 81 mg tablet Active ? Not availab le Take 1 tablet every day by oral route. Chantix Continuing Month Yuri 1 mg tablet Active ? Not available Take 1 tablet twice a day by oral route. methocarbamol 750 mg tablet Active ? Not available Take 1 tablet 3 times a day by oral route. naproxen 375 mg tablet Completed ? 8 Take 1 tablet twice a day by oral route. primidone 250 mg tablet Active ? Not avai lable Take 1 tablet 3 times a day by oral route. primidone 50 mg tablet Active ? Not avail able Take 1 tablet 3 times a day by oral route. propranolol ER 120 mg capsule,24 hr,extended release Active ? Not available Take 1 capsule every day by oral route. Vitamin D Active ? Not available 2000 units daily Problems Name Status Onset Date Source ? Obstructive Sleep Apnea Syndrome Active 02/03/2018 ? Periodic Limb Movement Disorder Active 02/03/2018 ? Polyp of Colon Active ? ? Hyperlipidemia Active ? ? Tobacco Dependence Syndrome Active ? ? Intention Tremor Active ? ? Chronic Obstructive Lung Disease Active ? ? Low Back Pain Active ? ? Sleep Apnea Unknown ? ? Procedures Date Name Performed by ? 02/03/2018 Oximetry Monitoring Overnight [employer] [address] [place] [address] (Work Place) Results Lab Results None recorded. Past Encounters None recorded. Social History Tobacco Smoking Status Current Every Day Smoker Notes: 12 , max 3 ppd (currently on chanti x and hasn't smoked since 07/14/2018) some days he will sm ирина a few, sometimes he doesn't Vaccine List None recorded. Plan of Care Reminders Provider Appointments None ? ? recorded. Lab None ? ? recorded. Referral None ? ? recorded. Procedures None ? ? recorded. Surgeries None ? ? recorded. Imaging None ? ? recorded. Vitals 07/02/2019 09:00AM Office 30 Height Weight BMI Blood Pressure 172.72 cm 73.03 kg 24.5 kg/m2 122/70 mm[Hg] 08/10/2018 09:15AM Office 30 Height Weight BMI Blood Pressure 172.72 cm 77.56 kg 26 kg/m2 120/72 mm[Hg] 06/08/2018 10:45AM Office 30 Height Weight BMI Blood Pressure 172.72 cm 77.97 kg 26.1 kg/m2 118/74 mm[Hg] 04/08/2018 10:00AM Office 15 Height Weight BMI Blood Pressure 172.72 cm 72.57 kg 24.3 kg/m2 140/94 mm[Hg] 02/03/2018 11:15AM New Patient 45 Height Weight BMI Blood Pressure 172.72 cm 74.84 kg 25.1 kg/m2 128/84 mm[Hg]
[2021-09-11 15:52] LABS: Abs Immature Grans 0.02 10^3/uL (0.0-0.06); Absolute Basophil Count 0.04 10^3/uL (0.0-0.2); Absolute Eosinophil Count 0.08 10^3/uL (0.0-0.7); Absolute Lymphocyte Count 0.74 10^3/uL (1.2-3.4); Absolute Monocyte Count 0.54 10^3/uL (0.1-0.8); Absolute Neutrophil Count 3.21 10^3/uL (1.2-6.7); Basophils % 0.9; Eosinophils % 1.7; HCT 41.7 % (40.0-50.0); HGB 13.3 g/dL (13.5-17.5); Immature Grans % 0.4; MCH 28.5 pg (27.0-33.0); MCHC 31.9 % (32.0-36.0); MCV 89.3 fL (80-95); MPV 11.1 fL (8.0-11.0); Monocytes % 11.7; Neutrophils % 69.3; Nucleated RBC 0 %; Platelet Count 318 10^3/uL (130-400); RBC 4.67 10^6/uL (4.36-5.78); RDW 14.9 % (11.8-14.1); RDW-SD 48.8 fL; WBC 4.63 10^3/uL (4.4-10.8)
[2021-09-11 15:53] LABS: Iron 55 ug/dL (65-175); Total Iron Binding Capacity 246 ug/dL (250-450); Transferrin Sat 22 % (20-55)
[2021-09-11 16:21] LABS: ALT 39 U/L (16-63); AST 24 U/L (15-37); Albumin 3.3 g/dL (3.4-5.0); Alkaline Phosphatase 88 U/L (46-116); Anion Gap 8.8 mmol/L (3-11); BUN 17 mg/dL (7-18); Bilirubin, Total 0.4 mg/dL (0.2-1.0); CO2 30.2 mmol/L (21.0-32.0); CREATININE 0.9 mg/dL (0.70-1.30); Calcium 9.5 mg/dL (8.5-10.1); Chloride 99 mmol/L (98-107); Glucose 76 mg/dL (74-106); Potassium 4.5 mmol/L (3.5-5.1); Sodium 138 mmol/L (136-145); TSH (W/Ref FT4) 1.72 uIU/mL (0.36-3.74); Total Protein 8.1 g/dL (6.4-8.2)
== END 2021-09-11 11:42 | disposition home or self-care (01) ==
LOC: NCHCN 11:41
PROVIDERS: PCP Family Medicine; Visit Provider Family Medicine
DX: D64.9 Anemia, unspecified (principal); R63.4 Abnormal weight loss
CPT/HCPCS: 80053; 83540; 83550; 84443; 85025

== ENCOUNTER → 2021-10-08 11:14 | Outpatient (BNVA) | payer OTHER, SELFPAY | PROVIDERS: PCP Family Medicine; Referring Provider Family Medicine; Visit Provider Surgery | DX: D50.9 Iron deficiency anemia, unspecified (principal); J44.9 Chronic obstructive pulmonary disease, unspecified; G47.33 Obstructive sleep apnea (adult) (pediatric); F17.210 Nicotine dependence, cigarettes, uncomplicated; R63.4 Abnormal weight loss | CPT/HCPCS: 99214; 99243 ==

== ENCOUNTER 2021-10-10 02:27 | Outpatient (CLI) | payer OTHER, SELFPAY ==
--- NOTE | 2021-10-10 10:46 | DI.RAD_ITS ---
Exam(s) XR CHEST 2V PA LATERAL EXAM: XR CHEST 2V PA LATERAL CLINICAL HISTORY: fell/R rib pain/cough W19.XXXA FALL R07.81 PLEURODYNIA G47.33 SLEEP APNEA TECHNIQUE: COMPARISON: CR CHEST 2 VIEWS PA,LAT from 12/04/2016 FINDINGS: Plate and screw fixation of right clavicle noted. The heart is not enlarged. Lungs are grossly clear and well expanded. No pleural effusion seen. Ol d rib fractures noted on the right. IMPRESSION: No evidence of acute process. RADIATION DOSE DELIVERED: Total DLP
== END 2021-10-10 02:47 ==
PROVIDERS: PCP Family Medicine; Visit Provider Surgery
DX: G47.33 Obstructive sleep apnea (adult) (pediatric) (principal); J44.9 Chronic obstructive pulmonary disease, unspecified; R07.81 Pleurodynia; W19.XXXA Unspecified fall, initial encounter; Y92.009 Unspecified place in unspecified non-institutional (private) residence as the place of occurrence of the external cause
CPT/HCPCS: 71046

== ENCOUNTER 2021-12-06 09:56 | Outpatient (CLI) | payer OTHER, SELFPAY ==
--- NOTE | 2021-12-18 10:56 | W.PFT ---
Date of service: 12/06/21 Time of Service: 01:54 Pulmonary Function Test Result Requesting Provider Avril Birch Indications: Pre-op for colonoscopy Interpretation Spirometry: Moderate airflow limitation. There is no significant bronchodilator response. Lung Volumes: There is significant air trapping and hyperinflation. Diffusion Capacity: The diffusion is reduced Airway Pressure: There is increased airway resistance. Impression Moderate airflow obstruction with air trapping, hyperinflation, reduced diffusion and increased airway resistance. This could represent COPD with significant emphysema. Note: When compared to 07/03/12, the FVC has remained stable, but there is worsened obstruction and there is now hyperinflation. Clinical Correlation therefore is recommended.
== END 2021-12-06 09:57 | disposition home or self-care (01) ==
LOC: RT 10:05
PROVIDERS: PCP Family Medicine; Visit Provider Surgery
DX: J44.9 Chronic obstructive pulmonary disease, unspecified; R13.13 Dysphagia, pharyngeal phase; F17.210 Nicotine dependence, cigarettes, uncomplicated; Z01.811 Encounter for preprocedural respiratory examination
CPT/HCPCS: 94060; 94726; 94729

== ENCOUNTER 2022-03-25 16:11 | Outpatient (REF) | payer OTHER, SELFPAY ==
[2022-03-25 15:46] LABS: HCT 36.1 % (40.0-50.0); HGB 12.1 g/dL (13.5-17.5); MCH 29.7 pg (27.0-33.0); MCHC 33.5 % (32.0-36.0); MCV 89 fL (80-95); MPV 10.5 fL (8.0-11.0); Platelet Count 344 10^3/uL (130-400); RBC 4.07 10^6/uL (4.36-5.78); RDW 14.5 % (11.8-14.1); RDW-SD 46.5 fL; WBC 4.49 10^3/uL (4.4-10.8)
[2022-03-25 16:09] LABS: Iron 72 ug/dL (65-175); Total Iron Binding Capacity 217 ug/dL (250-450); Transferrin Sat 33 % (20-55)
[2022-03-26 18:14] LABS: PSA, Diagnostic 5.3 ng/mL (<=6.5)
== END 2022-03-25 16:12 | disposition home or self-care (01) ==
LOC: NCHCN 16:11
PROVIDERS: PCP Family Medicine; Visit Provider Family Medicine
DX: D64.9 Anemia, unspecified (principal); R63.4 Abnormal weight loss; R97.20 Elevated prostate specific antigen [PSA]
CPT/HCPCS: 85027; 83540; 83550; 84153

== ENCOUNTER → 2022-04-08 02:06 | Outpatient (CLI) | payer OTHER, SELFPAY ==
--- NOTE | 2022-04-08 07:30 | DI.CTLCSR_ITS ---
Exam(s) CT CHEST LUNG CANCER SCREEN EXAM: CT CHEST LUNG CANCER SCREEN CLINICAL HISTORY: Screening for lung cancer,CURRENT SMOKER, F17.210 TECHNIQUE: Imaging Protocol: Axial computed tomography images with coronal and sagittal reformatted images were created and reviewed. Low dose screening protocol. COMPARISON: CT CT CHEST LUNG CANCER SCREEN from 04/06/2021 FINDINGS: Tracheobronchial tree: No bronchiectasis or mucus plugging.. Mediastinum and Alma Delia: No dominant adenopathy or fluid collection. Pulmonary parenchyma: No consolidation or dominant measurable mass. Moderate emphysematous changes, p articularly the upper lobes.. Lung Nodules: None. Pleura: No effusion. No pneumothorax. Heart: The heart is not dilated. coronary artery calcifications are seen. Aorta: Thoracic aorta non-dilated.Btoa-bo-bcvgbkzm calcification. Upper abdomen: Large cyst upper left kidney. Large gallstone. Bones: Fixation plate in right clavicle. Spine unremarkable. Soft Tissues: Unremarkable. IMPRESSION: No suspicious pulmonary nodules. Lung RADS Cat 1 - Negative: No nodules and definitely benign nodules Lung-RADS 1.0 CATEGORIES: Category 0 - Prior chest CT exam(s) being located for comparison. Category 1 - Annual screening in 12 months. No nodules or definitely benign nodules. Category 2 - Annual screening in 12 months. Benign appearance. Nodules with low likelihood of becomin g active cancer. Category 3 - 6-month follow-up. Probably benign. Short-term follow-up suggested. Nodules with low lik elihood of becoming active cancer. Category 4A - 3-month follow-up and CT/PET if >8 mm in size. Suspicious finding. Findings which requi re additional testing. Category 4B - Findings which require additional testing and tissue sampling. Category 4X - Category 3 or 4 nodules with additional features or imaging findings that increases the suspicion of malignancy. Modifier S- Potentially clinically significant findings (non lung cancer) RADIATION DOSE DELIVERED: 89.04mGy.cm Total DLP 1.84mGy CTDIvol DATA REPOSITORY: All CT scans at this facility are submitted to the National Radiology Data Registry (NRDR) Dose Index Registry (DIR) with the [employer] (ACR). RADIATION OPTIMIZATION: All CT scans at this facility use at least one of these dose optimization te chniques: automated exposure control; mA and/or kV adjustment per patient size (includes targeted exa ms where dose is matched to clinical indication); or iterative reconstruction.
== END ==
PROVIDERS: PCP Family Medicine; Visit Provider Student in an Organized Health Care Education/Training Program
DX: F17.210 Nicotine dependence, cigarettes, uncomplicated (principal); Z12.2 Encounter for screening for malignant neoplasm of respiratory organs
CPT/HCPCS: 71271

== ENCOUNTER 2022-11-30 15:01 | Observation (INO) | payer OTHER, SELFPAY ==
[2022-11-30] VITALS (56 sets, daily range): BP systolic 103–150; BP diastolic 53–126; PULSE 83–100; RESP 17–35; TEMP 36.9; O2SAT 92–98
--- NOTE | 2022-11-30 | DI.CT_ITS ---
Exam(s) CT HEAD WO EXAM: CT HEAD WO CLINICAL HISTORY: followup right parietal bleed, SAH vs contusion. TECHNIQUE: Imaging Protocol: Axial computed tomography images with coronal and sagittal reformatted images were created and reviewed COMPARISON: CT CT HEAD CERVICAL SPINE WO from 11/30/2022 FINDINGS: Ventricles and Extra axial spaces: Normal in size and morphology for the patient's age. Hemorrhage: There is again seen a very small amount of subarachnoid blood in the right parietal regio n. It show some layering at this time. It is unchanged in amount. No other intraparenchymal hemorr mychal is seen. Cerebral parenchyma: There is no evidence of an acute territorial infarct. There are areas of decrea sed attenuation in the white matter consistent with small vessel ischemic disease. Midline shift: None. Brainstem/Cerebellum: Normal. Calvarium: Normal. Chronic nasal bone deformity is seen. Visualized Paranasal sinuses/Mastoids: Clear. Soft Tissues: Unremarkable. IMPRESSION: Stable small right parietal subarachnoid hemorrhage. RADIATION DOSE DELIVERED: 731.54mGy.cm Total DLP DATA REPOSITORY: All CT scans at this facility are submitted to the National Radiology Data Registry (NRDR) Dose Index Registry (DIR) with the [employer] (ACR). RADIATION OPTIMIZATION: All CT scans at this facility use at least one of these dose optimization te chniques: automated exposure control; mA and/or kV adjustment per patient size (includes targeted exa ms where dose is matched to clinical indication); or iterative reconstruction.
--- NOTE | 2022-11-30 15:00 | DI.CT_ITS ---
Exam(s) CT HEAD CERVICAL SPINE WO EXAM: CT HEAD CERVICAL SPINE WO CLINICAL HISTORY: fall off ladder, r/o acute head injury/fx. TECHNIQUE: Imaging Protocol: Axial computed tomography images with coronal and sagittal reformatted images were created and reviewed COMPARISON: CT CT NECK W from 05/17/[address] THORACIC LUMBAR SPINE REC from 11/30/2022 FINDINGS: CT Head: Ventricles and Extra axial spaces: Normal in size and morphology for the patient's age. Hemorrhage: There is a tiny hyperdense focus seen on the coronal images in the right parietal lobe (s eries 8, image 89). This may represent intraparenchymal or subarachnoid hemorrhage. Cerebral parenchyma: No acute territorial infarct. There are areas of decreased attenuation in the w anu matter consistent with small vessel ischemic disease. Midline shift: None. Brainstem/Cerebellum: Normal. Calvarium: Normal. Visualized Paranasal sinuses/Mastoids: Clear. Soft Tissues: Unremarkable. CT Cervical Spine: Bones: No acute subluxation. On the sagittal views of the cervical spine there appear to be in nondi splaced fractures involving the superior endplate of T1 and the anterior superior aspect of T2. (Ser ies 15, image 36). Soft Tissues: Unremarkable. Lung Apices: Marked emphysematous changes are seen in the lung apices. IMPRESSION: 1. Tiny hyperdense focus seen in the right parietal region which may represent a focus of subarachnoi d blood or intraparenchymal blood. Follow-up is recommended. 2. Nondisplaced fractures involving the superior endplates of T1 and the anterior superior aspect of T2. 3. Findings were discussed with Dr. Estrella at 8:32 a.m. on 12/01/2022. RADIATION DOSE DELIVERED: 1,402.94mGy.cm Total DLP DATA REPOSITORY: All CT scans at this facility are submitted to the National Radiology Data Registry (NRDR) Dose Index Registry (DIR) with the [employer] (ACR). RADIATION OPTIMIZATION: All CT scans at this facility use at least one of these dose optimization te chniques: automated exposure control; mA and/or kV adjustment per patient size (includes targeted exa ms where dose is matched to clinical indication); or iterative reconstruction.
--- NOTE | 2022-11-30 15:00 | RT.EKG_ITS ---
APPROVED REPORT Exam: Resting ECG Reason for Exam: Fall Patient Location: E HR:93 bpm ECG Measurements Heart Rate 93 AXIS [place] 153 P 89 QRSd 100 QRS 70 QT 340 T 68 QTc 425 Conclusion Sinus rhythm...normal P axis, V-rate 60- 99 Sinus. Normal axis. No STEMI. I have reviewed and interpreted ECG and agree with software generated interpretation.
--- NOTE | 2022-11-30 15:00 | DI.CT_ITS ---
Exam(s) CT CHEST/ABD/PEL W CT THORACIC LUMBAR SPINE REC EXAM: CT CHEST/ABD/PEL W and CT thoracic and lumbar spine reconstructions CLINICAL HISTORY: fall off ladder, L chest pain, diffuse abd pain TECHNIQUE: Imaging Protocol: Axial computed tomography images with coronal and sagittal reformatted images were created and reviewed CONTRAST MATERIAL: Intravenous: Omnipaque 350 contrast volume:100 mL Oral: No COMPARISON: CT CT THORACIC LUMBAR SPINE REC from 11/30/2022 FINDINGS: The examination is limited due to patient motion artifact. CHEST: Tracheobronchial tree: Patent where visualized. Pulmonary parenchyma: Marked centrilobular emphysematous changes are present. No focal consolidating infiltrates are present. Visualized thyroid gland: Unremarkable. Mediastinum and Alma Delia: No dominant adenopathy or fluid collection. The esophagus is unremarkable. Pleura: No effusion or pneumothorax. Heart: The heart is not dilated. Moderate coronary artery calcification is present. No pericardial e ffusion. Pulmonary arteries: The segmental and subsegmental pulmonary arteries are inadequately opacified. No large central pulmonary embolus is seen. Aorta: Thoracic aorta non-dilated. Atherosclerosis is present. No evidence of dissection. Lymph nodes: Within normal limits. Soft tissues: Unremarkable. Bones:Within normal limits for the patient's age. A sideplate and screws are seen transfixing a heal ed right clavicular fracture. Thoracic spine CT recons: There are degenerative changes seen in the thoracic spine. There appear to be nondisplaced fractures involving the superior endplate of T1 in the anterior superior aspect of T 2. ABDOMEN: Liver: Normal density. No measurable mass. Portal, Superior Mesenteric, and Splenic Veins: Unremarkable. Gallbladder and Biliary Tract: There is a large gallstone present. Hyperdense material is also seen within the gallbladder which may represent sludge. No biliary ductal dilatation is present. Pancreas: Normal density, no abnormal calcifications or inflammatory process. Spleen: There is an area of decreased attenuation in the splenic hilum. No linear laceration or subc apsular hematoma is identified. Adrenals: No masses seen. Kidneys: Normal size, contour and axis. There is a 2 mm nonobstructing stone in the right kidney. Th ere are bilateral renal cysts. The largest cyst is in the left kidney and measures 8.4 x 6.8 cm. No follow-up is recommended. Abdominal Aorta: Abdominal portion non-dilated. Atherosclerosis is present. Bowel: There is diverticulosis seen in the colon, but no evidence of acute diverticulitis. There is no evidence of bowel obstruction or significant bowel wall thickening. There is no evidence of appen dicitis. Peritoneal Cavity: No ascites, collection or mesenteric inflammatory response. No free air. Lymph Nodes: Within normal limits. Bones: Within normal limits for the patient's age. Soft Tissues: Unremarkable. PELVIS: Bladder: Symmetric distention, no gross wall thickening. Reproductive Organs: Prostate gland is enlarged. Lymph Nodes: Within normal limits. Bones: Within normal limits. Lumbar spine CT recons: Nondisplaced fracture of the left transverse process of L5. Age-appropriate degenerative changes are seen in the thoracic spine. IMPRESSION: 1. No acute pulmonary process. 2. The examination is limited due to patient motion artifact. 3. Area of decreased attenuation in the splenic hilum suspicious for splenic contusion. 4. Acute fracture involving the left transverse process of L5. 5. Findings suspicious for nondisplaced fractures involving the T1 and T2 vertebral bodies as describ ed above. RADIATION DOSE DELIVERED: Total DLP DATA REPOSITORY: All CT scans at this facility are submitted to the National Radiology Data Registry (NRDR) Dose Index Registry (DIR) with the [employer] ([employer]). RADIATION OPTIMIZATION: All CT scans at this facility use at least one of these dose optimization te chniques: automated exposure control; mA and/or kV adjustment per patient size (includes targeted exa ms where dose is matched to clinical indication); or iterative reconstruction.
--- NOTE | 2022-11-30 15:15 | W.ED.GENAD ---
Discharge Plan Disposition Patient Disposition: Admit to [facility] Condition: Stable Discharge Details Clinical Impression: Fall, Subarachnoid bleed, Contusion of spleen, Lumbar transverse process fracture Admit Date/Time: 11/30/22 19:37 Admit Provider: Carlos Wadsworth Attending Provider: Carlos Wadsworth Primary Care Provider: Peter Boone ED Provider: Linda Estrella Discharge Data Discharge Date/Time-TO BE ENTERED AT DEPARTURE: 11/30/22 20:35 Medical Decision Making 1450 -- 77-year-old male with a history of COPD, chronic tobacco smoking, obstructive sleep apnea, hyperlipidemia and chronic back pain presents for chest pain and abdominal pain after fall 10 feet off a ladder onto his back on the grass. Unsure of a head injury. Patient frequently coughing throughout exam. He denies any shortness of breath. He has slightly diminished breath sounds to the left chest but does have diffuse wheezing throughout both lungs. His entire anterior chest is tender to palpation. His abdomen is soft but tender throughout. He has no rigidity or peritoneal signs. His midline T and L-spine are tender to palpation but he reports this is chronic. He has no midline C-spine tenderness. No obvious evidence of head trauma. He does have superficial abrasions to left hand but no obvious evidence of orthopedic trauma and has full range of motion of his bilateral upper and lower extremities without deformity. EKG notes a rate of 93, sinus, normal axis, artifact but no obvious acute ischemic findings. Will obtain screening labs including blunt cardiac injury work-up and send for stat CT imaging of head through pelvis. 1600 -- Case d/w Vrad -- CT notes a grade 1 splenic contusion, a tiny amount of subarachnoid blood vs cortical contusion in the right parietal region and an L5 transverse process fracture. Patient has remained hemodynamically stable. Case discussed with [facility] trauma who will review imaging but likely patient can obtain a repeat CT head in 6 hours and be monitored here. No other acute recommendations for L5 transverse process fracture, only pain control and no additional imaging recommended. Will review imaging and call back. 1820 --delay in further discussion with [facility] trauma due to high volume and acuity in the ED --discussed with Dr. Bowie who notes that the area of subarachnoid blood versus cortical contusion is approximately 4 mm and recommends repeat CT head 6 hours after the initial scan. He reviewed the abdominal imaging and there is no evidence of free fluid or hematoma and no further recommendations. In regards to the L5 transverse process fracture, continues to recommend pain control. Will admit patient here for pain control and plan for repeat CT head and 6 hours and continued monitoring overnight. If repeat CT head shows no acute change, no other repeat imaging indicated. 1844 --Case discussed with Dr. Wadsworth who accepts patient for admission. Medical Records Medical records reviewed: Yes I reviewed the patient's medical records. Imaging Data Radiologic Study: Radiologist's impression: CT Head Without Contrast Exam date and time: 11/30/2022 3:15 PM Age: 77 years old Clinical indication: Injury or trauma; Patient HX: Fall 15ft off ladder TECHNIQUE: Imaging protocol: Computed tomography of the head without contrast. COMPARISON: CT NECK W 05/17/2020 2:17 PM FINDINGS: Brain: Hypodensity is seen in the periventricular cerebral white matter. This change is nonspecific but is most likely secondary to chronic ischemia within microvascular distributions. Langford white matter distinction is maintained throughout the brain. Tiny focus of either subarachnoid blood and/or a small cortical contusion in the right parietal region. Recommend follow-up. See image number 89 series 8. Cerebral ventricles: Ventricles are enlarged on the basis of mild diffuse cerebral volume loss. Paranasal sinuses: Visualized sinuses are unremarkable. No fluid levels. Mastoid air cells: Visualized mastoid air cells are well aerated. Bones/joints: Unremarkable. No acute fracture. Soft tissues: Unremarkable. IMPRESSION: Tiny focus of either subarachnoid blood and/or a small cortical contusion in the right parietal region. Recommend follow-up. See image number [address] Cervical Spine Without Contrast Exam date and time: 11/30/2022 3:15 PM Age: 77 years old Clinical indication: Injury or trauma; Patient HX: Fall 15ft off ladder TECHNIQUE: Imaging protocol: Computed tomography of the cervical spine without contrast. COMPARISON: CT NECK W 05/17/2020 2:17 PM FINDINGS: Bones/joints: alignment is normal. posterior vertebral line and the spinal laminar line normal. odontoid process normal. no fracture. Diffuse degenerative disc disease throughout the cervical spine. Mild. Lungs: Severe emphysema destruction of much of the lung parenchyma within the apices. Vasculature: Dense carotid calcification on the left Soft tissues: Unremarkable. IMPRESSION: No fracture. CT Chest With Contrast; Diagnostic Exam date and time: 11/30/2022 3:21 PM Age: 77 years old Clinical indication: Abdominal pain; Left-sided; Patient HX: Fall off ladder, L chest pain, diffuse abd pain TECHNIQUE: Imaging protocol: Diagnostic computed tomography of the chest with contrast. COMPARISON: CT CHEST LUNG CANCER SCREEN 04/08/2022 1:37 PM FINDINGS: Lungs: Unremarkable. No consolidation. No masses. Pleural spaces: Unremarkable. No pneumothorax. No pleural effusion. Heart: Unremarkable. No cardiomegaly. No pericardial effusion. Lymph nodes: Unremarkable. No enlarged lymph nodes. Vasculature: Unremarkable. No aortic aneurysm.? Bones/joints: Status post ORIF right clavicular fracture. There are multiple right rib deformities, probably nonacute. Soft tissues: Unremarkable. IMPRESSION: Right rib deformities are likely related to prior trauma. No definite acute fracture seen. CT Abdomen And Pelvis With Contrast Exam date and time: 11/30/2022 3:21 PM Age: 77 years old Clinical indication: Abdominal pain; Left-sided; Patient HX: Fall off ladder, L chest pain, diffuse abd pain TECHNIQUE: Imaging protocol: Computed tomography of the abdomen and pelvis with contrast. COMPARISON: CT CHEST LUNG CANCER SCREEN 04/08/2022 1:37 PM FINDINGS: Liver: Normal. No mass. Gallbladder and bile ducts: Large gallbladder. Pancreas: Normal. No ductal dilation. Spleen: Allowing for respiratory motion there is some splenic heterogeneity within area of decreased attenuation at the level of the hilum 2.3 cm series 6, image 617. No definite subcapsular hematoma or surface laceration evident. Adrenal glands: Normal. No mass. Kidneys and ureters: There is a large left renal midpole cyst 8.4 cm. There is a more inferior pole cyst 7.9 cm. No perinephric edema. Stomach and bowel: Unremarkable. No obstruction. No mucosal thickening. Appendix: No evidence of appendicitis. Intraperitoneal space: Unremarkable. No free air. No significant fluid collection. Vasculature: Moderate to severe atherosclerotic change present in the vasculature. Lymph nodes: Unremarkable. No enlarged lymph nodes. Urinary bladder: Unremarkable as visualized. Reproductive: Prostate enlarged, 4.7 cm. Bones/joints: There is some subtle lucency in the anterior left iliac wing. Soft tissues: See Spleen finding. Other findings: Respiratory motion slightly limits the exam. IMPRESSION: Probable grade 1 splenic contusion allowing for respiratory motion and mild splenic heterogeneity possibly enhancement related. Lab Data Lab results reviewed: Yes I reviewed the patient's lab results. Labs: Laboratory Tests Range/Units 11/30/22 11/30/22 11/30/22 15:08 15:08 15:08 WBC (4.4-10.8) 10^3/uL 8.90 RBC (4.36-5.78) 10^6/uL 4.77 Hgb (13.5-17.5) g/dL 13.8 Hct (40.0-50.0) % 41.6 MCV (80-95) fL 87 MCH (27.0-33.0) pg 28.9 MCHC (32.0-36.0) % 33.2 RDW (11.8-14.1) % 15.7 H Plt Count (130-400) 10^3/uL 352 MPV (8.0-11.0) fL 9.4 Immature Gran % 2.8 Neutrophils % 76.4 Lymphocytes % 11.0 Monocytes % 8.3 Eosinophils % 1.2 Basophils % 0.3 Nucleated RBC % (0.0-0.3) % 0.0 Absolute Neutrophils (1.2-6.7) 10^3/uL 6.79 H Absolute Lymphocytes (1.2-3.4) 10^3/uL 0.98 L Absolute Monocytes (0.1-0.8) 10^3/uL 0.74 Absolute Eosinophils (0.0-0.7) 10^3/uL 0.11 Absolute Basophils (0.0-0.2) 10^3/uL 0.03 Sodium (136-145) mmol/L 139 Potassium (3.5-5.1) mmol/L 4.5 Chloride (98-107) mmol/L 99 Carbon Dioxide (21.0-32.0) mmol/L 35.2 H Anion Gap (3-11) mmol/L 4.8 BUN (7-18) mg/dL 17 Creatinine (0.70-1.30) mg/dL 1.0 Est GFR (CKD-EPI 2020) (mL/min/1.73m2) 78.49 Glucose (74-106) mg/dL 118 H Calcium (8.5-10.1) mg/dL 9.6 Magnesium (1.8-2.4) mg/dL 2.2 Total Bilirubin (0.2-1.0) mg/dL 0.4 AST (15-37) U/L 66 H ALT (16-63) U/L 62 Alkaline Phosphatase (46-116) U/L 111 Troponin I (<or=60) ng/L < 50 Total Protein (6.4-8.2) g/dL 8.8 H Albumin (3.4-5.0) g/dL 2.9 L Lipase (16-77) U/L 51 Patient ABO/Rh A Positive Antibody Screen NEGATIVE ECG Data Attestation: I personally reviewed and interpreted this ECG (s) as follows: Interpretation: Rate of 93, sinus, normal axis, artifact in anterior leads, no acute ischemic findings. HPI General Mode of arrival: EMS. Date/Time Provider Initiated Documentation: 11/30/22 15:28. Limitations to Documentation: altered mental status. Information obtained by: patient. HPI Narrative: Patient is a 77-year-old male with a history of COPD, chronic tobacco smoking, sleep apnea, chronic back pain, hyperlipidemia presents as a trauma after fall down 10 feet off a ladder. Patient is a poor historian but does report that he was on a ladder as he was attempting to show someone something on the roof. He states he does not remember what happened. EMS reported that patient slipped off a ladder and felt down 10 feet onto his back on the grass. Patient is unsure of a head injury. He is unsure of LOC or vomiting. He is reporting anterior chest pain but denies any difficulty breathing. He is also reporting abdominal pain with palpation. He does report he has chronic back pain and states this is no worse than usual. Related Data Home Medications Medication Instructions Recorded Confirmed cholecalciferol (vitamin D3) 50 50 mcg PO DAILY 04/06/20 12/08/22 mcg (2,000 unit) capsule propranolol 120 mg capsule,24 120 mg PO DAILY 04/06/20 12/08/22 hr,extended release primidone 250 mg tablet 300 mg PO TID #270 tab-caps 05/23/20 12/08/22 albuterol sulfate 90 mcg/actuation 2 puff inhalation Q6H PRN 02/04/22 12/08/22 aerosol inhaler shortness of breath or wheezing #8.5 grams fluticasone fur. 100 mcg-umeclid 1 inh inhalation DAILY #60 ea 05/16/22 12/08/22 62.5 mcg-vilant 25 mcg inhalat.powder (Trelegy Ellipta) acetaminophen 500 mg tablet 650 mg PO TID PRN PRN #0 tabs 12/02/22 12/08/22 Previous Rx's Medication Instructions Recorded albuterol sulfate 90 mcg/actuation 2 puff inhalation Q6H PRN 02/04/22 aerosol inhaler shortness of breath or wheezing #8.5 grams fluticasone fur. 100 mcg-umeclid 1 inh inhalation DAILY #60 ea 05/16/22 62.5 mcg-vilant 25 mcg inhalat.powder (Trelegy Ellipta) acetaminophen 500 mg tablet 650 mg PO TID PRN PRN #0 tabs 12/02/22 Allergies Allergy/AdvReac Type Severity Reaction Status Date / Time aspirin AdvReac Intermediate GI UPSET Verified 11/30/22 18:15 General Stated Complaint: Trauma NAWAF: 2 Review of Systems All systems reviewed & are unremarkable except as noted in HPI and below Constitutional Constitutional: Reports as per HPI, Denies chills and Denies fever(s) Eyes Eyes: Denies blurry vision ENT Ears, Nose, Mouth, and Throat: Denies dizziness, Denies sore throat and Denies throat swelling Cardiovascular Cardiovascular: Reports chest pain and Denies dyspnea Respiratory Respiratory: Denies cough and Denies dyspnea Gastrointestinal Gastrointestinal: Denies abdominal pain, Denies diarrhea and Denies vomiting Genitourinary Genitourinary: Denies hematuria and Denies dysuria Musculoskeletal Musculoskeletal: Denies back pain and Denies numbness Integumentary/Breasts Skin/Breast: Denies lesions and Denies rash Neurologic Neurologic: Denies dizziness, Denies localized weakness and Denies numbness Allergic/Immunologic Allergic/Immunologic: Denies throat swelling [facility] All Active Problems (Updated 12/10/22 @ 17:45 by Tonia Valdovinos MD) Advanced care planning/counseling discussion (Acute) TBI (traumatic brain injury) (Acute) Palliative care encounter (Acute) Subdural hematoma (Acute) DVT prophylaxis (Acute) COVID-19 (Acute) Comfort measures only status (Acute) Spleen laceration (Acute) Acute cholecystitis (Acute) Bleeding in brain (Acute) Abdominal pain (Acute) Acute blood loss anemia (Acute) Ruptured spleen (Acute) Laceration of brow without complication (Acute) Lethargy (Acute) Fall (Acute) Minor contusion of spleen (Acute) Subarachnoid bleed (Acute) Lumbar transverse process fracture (Acute) 3 vertebrae Nicotine dependence, cigarettes, uncomplicated (Acute) Constipation (Acute) ROE and COPD overlap syndrome (Acute) Rib pain on right side (Acute) Fall as cause of accidental injury at home as place of occurrence (Acute) Anemia, iron deficiency (Acute) Weight loss, abnormal (Acute) Tubular adenoma (Acute 01/29/16) Mass of vallecula (Acute) Pharyngeal dysphagia (Acute) Aspiration into lower respiratory tract (Acute) Vocal cord dysfunction (Acute) Vocal cord paralysis (Acute) Ribs, multiple fractures (Acute 06/05/13) Ribs 7 through 9 Atelectasis (Acute 06/05/13) COPD (chronic obstructive pulmonary disease) (Chronic) Jun 24, 2012 PFT's with FEV1 60% predicted, severe obstrtuctive disease with no significatn bronchodilator response. Tobacco abuse (Chronic) Ongoing tobacco use, nicotiune replacement not helpful, Chntix helped in the past but could not afford. PFT's performed 07/03/12 with REV1 60% predicted, severe obstrructive disease with no significant bronchodilator response. Sleep apnea (Chronic) Treated with CPAP. Essential tremor (Chronic) Chronic back pain (Chronic) Weight loss (Acute) Dysphagia (Acute) Hyperlipidemia (Chronic) Medical History Chronic low back pain Cigarette smoker Colon polyps 01/08/19 w/ Dr Marya Stinson, [facility], tubular adenoma, repeat 3 yrs 01/29/16 w/ Dr. Aleyda Irizarry, 4 tubular adenoma's, repeat 3 years COPD (chronic obstructive pulmonary disease) Hearing loss History of broken collarbone right collarbone fx with hardware- per pt 6 years ago Polyuria Shoulder pain, left Sleep apnea Tremor Surgical History Hx of surgical procedure clavicle repair Hx of thumb surgery 1973. [address] in place Family History Mother Colon cancer Social History Smoking/Tobacco Use Status: Former Tobacco Use Tobacco: How many years used: 50 Smoking risk assessment performed?: Yes Alcohol Intake: never Drug use: Never Substance use type: does not use Details: QUIT SMOKING A MONTH AGO, CURRENTLY USING CHANTIX TO QUIT Do you feel safe at home: Yes (unable to ask privately) Do you feel safe in your relationship?: Yes Additional Social history: Exam Const General: cooperative and ill appearing chronically Orientation: alert and awake [facility] Head: normal to inspection Face and sinus: normal facial exam Mouth: mucous membranes dry Eyes General: appearance normal, both eyes and all related structures Pupils: PERRL EOM: EOM intact bilaterally Neck Neck: normal visual inspection and No submandibular swelling Lymphatic: no lymphadenopathy noted Chest Chest: normal inspection of the chest Chest/axillae images: 1. Tenderness to palpation across anterior chest. There is no crepitus, ecchymoses or hematoma. Resp Effort & Inspection: normal respiratory effort and able to speak in complete sentences Auscultation: clear to auscultation bilaterally Cardio Rate: regular rate Rhythm: regular rhythm GI Inspection: normal to inspection and no abdominal wall ecchymosis Palpation: soft, not firm, not rigid and tender (diffuse) Auscultation: hypoactive bowel sounds Male General Exam: Yes normal external exam Back/Spine/Pelvis Cervical Spine: No cervical spinal tenderness Thoracic/Lumbar Spine: thoracic and lumbar spine normal to inspection, thoracic spinal tenderness and lumbar spinal tenderness Pelvis: no pain with anterior-posterior compression Skin General skin exam: no rashes or lesions noted Neuro General: patient alert and patient awake Speech: speech normal Motor: muscle tone normal throughout Sensory Exam: no sensory deficits noted Extrem General: edema Hand/finger images: 1. Superficial abrasions. Bleeding controlled. Other: Full range of motion of bilateral upper and lower extremities without significant pain with range of motion or deformity. Psych Appearance: grossly normal Mental Status: mental status grossly normal Speech and Movement: speech and movement normal Affect: normal affect Course Vital Signs Vital signs: Vital Signs Pulse 94 H 11/30/22 14:53 Respiratory Rate 18 11/30/22 14:53 Pulse Oximetry 94 11/30/22 14:53 Pulse 94 H 11/30/22 14:53 Respiratory Rate 18 11/30/22 14:53 Respiratory Effort Normal, Non-Labored 11/30/22 14:56 Blood Pressure 131/90 11/30/22 14:57 Pulse Oximetry 94 11/30/22 14:53 Oxygen Delivery Method Room Air 11/30/22 14:53 Oxygen Flow Rate 0 11/30/22 14:53 Critical Care Time Critical Care Time Critical Care Time: Yes Total Critical Care Time: 60 Attestation: I spent 60 minutes of critical care time with this patient. This does not include time spent on separately reported billable procedures.
[2022-11-30 15:19] LABS: Abs Immature Grans 0.25 10^3/uL (0.0-0.06); Absolute Basophil Count 0.03 10^3/uL (0.0-0.2); Absolute Eosinophil Count 0.11 10^3/uL (0.0-0.7); Absolute Lymphocyte Count 0.98 10^3/uL (1.2-3.4); Absolute Monocyte Count 0.74 10^3/uL (0.1-0.8); Absolute Neutrophil Count 6.79 10^3/uL (1.2-6.7); Basophils % 0.3; Eosinophils % 1.2; HCT 41.6 % (40.0-50.0); HGB 13.8 g/dL (13.5-17.5); Immature Grans % 2.8; MCH 28.9 pg (27.0-33.0); MCHC 33.2 % (32.0-36.0); MCV 87 fL (80-95); MPV 9.4 fL (8.0-11.0); Monocytes % 8.3; Neutrophils % 76.4; Platelet Count 352 10^3/uL (130-400); RBC 4.77 10^6/uL (4.36-5.78); RDW 15.7 % (11.8-14.1); RDW-SD 50.4 fL
[2022-11-30] MEDS: Omnipaque 350 MG/ML 100 ML BTL IJ (15:27)
[2022-11-30] MEDS: Normal Saline - Diluent 50 ML VIAL IJ (15:27)
[2022-11-30 15:43] LABS: ALT 62 U/L (16-63); AST 66 U/L (15-37); Albumin 2.9 g/dL (3.4-5.0); Alkaline Phosphatase 111 U/L (46-116); Anion Gap 4.8 mmol/L (3-11); BUN 17 mg/dL (7-18); Bilirubin, Total 0.4 mg/dL (0.2-1.0); CO2 35.2 mmol/L (21.0-32.0); Calcium 9.6 mg/dL (8.5-10.1); Chloride 99 mmol/L (98-107); Estimated GFR 78.49 (mL/min/1.73m2); Glucose 118 mg/dL (74-106); Lipase 51 U/L (16-77); Magnesium 2.2 mg/dL (1.8-2.4); Potassium 4.5 mmol/L (3.5-5.1); Sodium 139 mmol/L (136-145); Total Protein 8.8 g/dL (6.4-8.2); Troponin I < 50 ng/L (<or=60)
--- NOTE | 2022-11-30 15:47 | DI.VRAD_ITS ---
Addendum created by Cassie Mello MD on 11/30/2022 3:48:45 PM EDT: I discussed case findings with peg sagastume 11/30/2022 3:47 PM EDT. Initial report created on 11/30/2022 3:47:38 PM EDT: PROCEDURE INFORMATION: Exam: CT Chest With Contrast; Diagnostic Exam date and time: 11/30/2022 3:21 PM Age: 77 years old Clinical indication: Abdominal pain; Left-sided; Patient HX: Fall off ladder, L chest pain, diffuse abd pain TECHNIQUE: Imaging protocol: Diagnostic computed tomography of the chest with contrast. COMPARISON: CT CHEST LUNG CANCER SCREEN 04/08/2022 1:37 PM FINDINGS: Lungs: Unremarkable. No consolidation. No masses. Pleural spaces: Unremarkable. No pneumothorax. No pleural effusion. Heart: Unremarkable. No cardiomegaly. No pericardial effusion. Lymph nodes: Unremarkable. No enlarged lymph nodes. Vasculature: Unremarkable. No aortic aneurysm. Bones/joints: Status post ORIF right clavicular fracture. There are multiple right rib deformities, probably nonacute. Soft tissues: Unremarkable. IMPRESSION: Right rib deformities are likely related to prior trauma. No definite acute fracture seen. PROCEDURE INFORMATION: Exam: CT Abdomen And Pelvis With Contrast Exam date and time: 11/30/2022 3:21 PM Age: 77 years old Clinical indication: Abdominal pain; Left-sided; Patient HX: Fall off ladder, L chest pain, diffuse abd pain TECHNIQUE: Imaging protocol: Computed tomography of the abdomen and pelvis with contrast. COMPARISON: CT CHEST LUNG CANCER SCREEN 04/08/2022 1:37 PM FINDINGS: Liver: Normal. No mass. Gallbladder and bile ducts: Large gallbladder. Pancreas: Normal. No ductal dilation. Spleen: Allowing for respiratory motion there is some splenic heterogeneity within area of decreased attenuation at the level of the hilum 2.3 cm series 6, image 617. No definite subcapsular hematoma or surface laceration evident. Adrenal glands: Normal. No mass. Kidneys and ureters: There is a large left renal midpole cyst 8.4 cm. There is a more inferior pole cyst 7.9 cm. No perinephric edema. Stomach and bowel: Unremarkable. No obstruction. No mucosal thickening. Appendix: No evidence of appendicitis. Intraperitoneal space: Unremarkable. No free air. No significant fluid collection. Vasculature: Moderate to severe atherosclerotic change present in the vasculature. Lymph nodes: Unremarkable. No enlarged lymph nodes. Urinary bladder: Unremarkable as visualized. Reproductive: Prostate enlarged, 4.7 cm. Bones/joints: There is some subtle lucency in the anterior left iliac wing. Soft tissues: See Spleen finding. Other findings: Respiratory motion slightly limits the exam. IMPRESSION: Probable grade 1 splenic contusion allowing for respiratory motion and mild splenic heterogeneity possibly enhancement related. Dictated and Authenticated by: Cassie Mello MD. Ordering:PRICILA Mckeon MD
[2022-11-30] MEDS: ACETAMINOPHEN 1,000 MG/100 ML BTL 400 MG IVPB (15:50)
[2022-11-30] MEDS: Normal Saline 1,000 ML 1000 ML IV (15:51)
--- NOTE | 2022-11-30 15:53 | DI.VRAD_ITS ---
PROCEDURE INFORMATION: Exam: CT Thoracic Spine Without Contrast Exam date and time: 11/30/2022 3:21 PM Age: 77 years old Clinical indication: Injury or trauma; Patient HX: 15 ft fall from ladder TECHNIQUE: Imaging protocol: Computed tomography of the thoracic spine without contrast. COMPARISON: CT HEAD CERVICAL SPINE WO 11/30/2022 3:15 PM FINDINGS: Bones/joints: No acute fracture. Normal alignment. No significant disc bulge or herniation. No severe spinal canal stenosis. No significant neural foraminal narrowing. Soft tissues: Unremarkable. IMPRESSION: No evidence for acute posttraumatic abnormality. PROCEDURE INFORMATION: Exam: CT Lumbar Spine Without Contrast Exam date and time: 11/30/2022 3:21 PM Age: 77 years old Clinical indication: Injury or trauma; Patient HX: 15 ft fall from ladder TECHNIQUE: Imaging protocol: Computed tomography of the lumbar spine without contrast. COMPARISON: No relevant prior studies available. FINDINGS: Bones/joints: There is a left transverse process fracture involving the L5 transverse process. There is no significant displacement. Cystic change left anterior iliac wing again noted. No additional fracture seen. Soft tissues: Unremarkable. IMPRESSION: Left transverse process fracture L5. Dictated and Authenticated by: Cassie Mello MD. Ordering:PRICILA Mckeon MD
--- NOTE | 2022-11-30 16:02 | DI.VRAD_ITS ---
Addendum created by Jarod Benitez MD on 12/01/2022 8:28:29 AM EDT: 11/30/2022 4:13:37 PM EDT - Dr Estrella reviewed the report, no questions Initial report created on 11/30/2022 4:01:59 PM EDT: PROCEDURE INFORMATION: Exam: CT Head Without Contrast Exam date and time: 11/30/2022 3:15 PM Age: 77 years old Clinical indication: Injury or trauma; Patient HX: Fall 15ft off ladder TECHNIQUE: Imaging protocol: Computed tomography of the head without contrast. COMPARISON: CT NECK W 05/17/2020 2:17 PM FINDINGS: Brain: Hypodensity is seen in the periventricular cerebral white matter. This change is nonspecific but is most likely secondary to chronic ischemia within microvascular distributions. Langford white matter distinction is maintained throughout the brain. Tiny focus of either subarachnoid blood and/or a small cortical contusion in the right parietal region. Recommend follow-up. See image number 89 series 8. Cerebral ventricles: Ventricles are enlarged on the basis of mild diffuse cerebral volume loss. Paranasal sinuses: Visualized sinuses are unremarkable. No fluid levels. Mastoid air cells: Visualized mastoid air cells are well aerated. Bones/joints: Unremarkable. No acute fracture. Soft tissues: Unremarkable. IMPRESSION: Tiny focus of either subarachnoid blood and/or a small cortical contusion in the right parietal region. Recommend follow-up. See image number 89 series 8. PROCEDURE INFORMATION: Exam: CT Cervical Spine Without Contrast Exam date and time: 11/30/2022 3:15 PM Age: 77 years old Clinical indication: Injury or trauma; Patient HX: Fall 15ft off ladder TECHNIQUE: Imaging protocol: Computed tomography of the cervical spine without contrast. COMPARISON: CT NECK W 05/17/2020 2:17 PM FINDINGS: Bones/joints: alignment is normal. posterior vertebral line and the spinal laminar line normal. odontoid process normal. no fracture. Diffuse degenerative disc disease throughout the cervical spine. Mild. Lungs: Severe emphysema destruction of much of the lung parenchyma within the apices. Vasculature: Dense carotid calcification on the left Soft tissues: Unremarkable. IMPRESSION: No fracture. Dictated and Authenticated by: Jarod Benitez MD. Ordering:PRICILA Mckeon MD
--- NOTE | 2022-11-30 19:21 | W.PM.HP.N ---
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 Will repeat head CT as per trauma recommendation, otherwise monitor with neuro checks overnight. Asymptomatic wheezing noted, will treat with prn updrafts Essential tremor: usual beta renetta and primidone Reviewed ADs, requests DNR History of Present Illness History of Present Illness Chief Complaint: fall off ladder Narrative: 77 male fell ten feet off ladder today. Last he remembers is someone on roof asking him for help, does not remember the fall itself, but found himself then on the ground. C/O frontal headache (but this is not unusual for him), diffuse chest and abdominal pain, and lower back pain (this is chronic, says not different). In ER findings of note for head CT showing tiny area of bleeding right parietal, SAH vs cerebral contusion; splenic contusion; and left non-displaced L5 transverse process [id number]. [facility] [place] and advised: 1. Repeat head CT a t 6 hours 2. No intervention regarding splenic contusion 3. prn analgesics for L5 fracture. Patient has received 1000 APAP at this point, otherwise describes generalized aches and pains but nothing more specific. Is asking for something to eat. Review of Systems Narrative: per HPI PFSH All Active Problems Fall (Acute) Subarachnoid bleed (Acute) Contusion of spleen (Acute) Lumbar transverse process fracture (Acute) Nicotine dependence, cigarettes, uncomplicated (Acute) Constipation (Acute) ROE and COPD overlap syndrome (Acute) Rib pain on right side (Acute) Fall as cause of accidental injury at home as place of occurrence (Acute) Anemia, iron deficiency (Acute) Weight loss, abnormal (Acute) Tubular adenoma (Acute 01/29/16) Mass of vallecula (Acute) Pharyngeal dysphagia (Acute) Aspiration into lower respiratory tract (Acute) Vocal cord dysfunction (Acute) Vocal cord paralysis (Acute) Ribs, multiple fractures (Acute 06/05/13) Ribs 7 through 9 Atelectasis (Acute 06/05/13) COPD (chronic obstructive pulmonary disease) (Chronic) Jun 24, 2012 PFT's with FEV1 60% predicted, severe obstrtuctive disease with no significatn bronchodilator response. Tobacco abuse (Chronic) Ongoing tobacco use, nicotiune replacement not helpful, Chntix helped in the past but could not afford. PFT's performed 07/03/12 with REV1 60% predicted, severe obstrructive disease with no significant bronchodilator response. Sleep apnea (Chronic) Treated with CPAP. Essential tremor (Chronic) Chronic back pain (Chronic) Weight loss (Acute) Dysphagia (Acute) Hyperlipidemia (Chronic) Medical History Chronic low back pain Cigarette smoker Colon polyps 01/08/19 w/ Dr Marya Stinson, [facility], tubular adenoma, repeat 3 yrs 01/29/16 w/ Dr. Aleyda Irizarry, 4 tubular adenoma's, repeat 3 years COPD (chronic obstructive pulmonary disease) Hearing loss History of broken collarbone right collarbone fx with hardware- per pt 6 years ago Polyuria Shoulder pain, left Sleep apnea Tremor Surgical History Hx of surgical procedure clavicle repair Hx of thumb surgery 1973. Hardware in place Family History Mother Colon cancer Social History Smoking/Tobacco Use Status: Current every day Tobacco Type: cigarettes Tobacco: How many years used: 50 Smoking risk assessment performed?: Yes Alcohol Intake: never Drug use: Never Substance use type: does not use Details: QUIT SMOKING A MONTH AGO, CURRENTLY USING CHANTIX TO QUIT Additional Social history: Meds Allergies and Home Medications Allergies Allergy/AdvReac Type Severity Reaction Status Date / Time aspirin AdvReac Intermediate GI UPSET Verified 11/30/22 18:15 Home Medications Medication Instructions Recorded Confirmed Type cholecalciferol (vitamin D3) 50 50 mcg PO DAILY 04/06/20 11/30/22 History mcg (2,000 unit) capsule propranolol 120 mg capsule,24 120 mg PO DAILY 04/06/20 11/30/22 History hr,extended release primidone 250 mg tablet 300 mg PO TID #270 tab-caps 05/23/20 11/30/22 History albuterol sulfate 90 mcg/actuation 2 puff inhalation Q6H PRN 02/04/22 11/30/22 Rx aerosol inhaler shortness of breath or wheezing #8.5 grams fluticasone fur. 100 mcg-umeclid 1 inh inhalation DAILY #60 ea 05/16/22 11/30/22 Rx 62.5 mcg-vilant 25 mcg inhalat.powder (Trelegy Ellipta) Exam Narrative Exam Narrative: 110/53, 90, 36.5, 23, 95% RA. HEENT atraumatic; neck supple w/o spinal tenderness; lungs diffuse wheeze; heart distant/RRR; chest no sternal or poarasternal tenderness; abdomen soft and NT; back mild non-specific lower back tenderness which does not localize to any point; extremities w/o edema; full ROM pain free, no bruising; neuro Ox3, lucid, moves all 4s Results Labs 11/30/22 15:08 11/30/22 15:08 Labs: Laboratory Results - last 24 hr 11/30/22 11/30/22 11/30/22 15:08 15:08 15:08 WBC 8.90 RBC 4.77 Hgb 13.8 Hct 41.6 MCV 87 MCH 28.9 MCHC 33.2 RDW 15.7 H Plt Count 352 MPV 9.4 Immature Gran % 2.8 Neutrophils % 76.4 Lymphocytes % 11.0 Monocytes % 8.3 Eosinophils % 1.2 Basophils % 0.3 Nucleated RBC % 0.0 Absolute Neutrophils 6.79 H Absolute Lymphocytes 0.98 L Absolute Monocytes 0.74 Absolute Eosinophils 0.11 Absolute Basophils 0.03 Sodium 139 Potassium 4.5 Chloride 99 Carbon Dioxide 35.2 H Anion Gap 4.8 BUN 17 Creatinine 1.0 Est GFR (CKD-EPI 2020) 78.49 Glucose 118 H Calcium 9.6 Magnesium 2.2 Total Bilirubin 0.4 AST 66 H ALT 62 Alkaline Phosphatase 111 Troponin I < 50 Total Protein 8.8 H Albumin 2.9 L Lipase 51 Patient ABO/Rh A Positive Antibody Screen NEGATIVE Last Vital Signs Pulse 90 11/30/22 18:16 Resp 23 11/30/22 18:20 BP 110/53 L 11/30/22 18:16 Pulse Ox 95 05/20/23 18:20 Time Spent Time spent with Patient: 40-54 minutes Time was spent: preparing to see the patient(eg.review tests), obtaining and/or reviewing separately otained hiistory, ordering medications,tests, procedures, referring, communicating with other health director of critical care and indepentently interpreting results
--- NOTE | 2022-11-30 21:21 | DI.VRAD_ITS ---
PROCEDURE INFORMATION: Exam: CT Head Without Contrast Exam date and time: 11/30/2022 9:10 PM Age: 77 years old Clinical indication: Screening exam; Patient HX: Followup right parietal bleed, sah vs contusion TECHNIQUE: Imaging protocol: Computed tomography of the head without contrast. COMPARISON: CT HEAD CERVICAL SPINE WO 11/30/2022 3:15 PM FINDINGS: Brain: Previously seen minimal right parietal subarachnoid blood at the convexity level is unchanged from prior study. No new acute hemorrhage is evident. Volume loss is again seen. Langford-white matter differentiation is appropriate with scattered and coalescent areas of decreased attenuation, presumed small vessel ischemic change. Cerebral ventricles: No ventriculomegaly. Paranasal sinuses: Visualized sinuses are unremarkable. No fluid levels. Mastoid air cells: Visualized mastoid air cells are well aerated. Bones/joints: Unremarkable. No acute fracture. Soft tissues: Unremarkable. Other findings: Nasal deformity unchanged. IMPRESSION: Stable appearances of minimal right parietal subarachnoid blood. Dictated and Authenticated by: Cassie Mello MD. Ordering:SOMMER Gonzalez MD
[2022-12-01] VITALS (14 sets, daily range): BP systolic 109–134; BP diastolic 68–86; PULSE 78–93; RESP 20–28; TEMP 36.9–38.5; O2SAT 92–96
--- NOTE | 2022-12-01 | DI.RAD_ITS ---
Exam(s) XR PORTABLE CHEST AP EXAM: XR PORTABLE CHEST AP CLINICAL HISTORY: diminished lung sounds TECHNIQUE: 2D digital imaging was performed of the chest. One image was obtained. An AP view was ob tained. COMPARISON: CR XR CHEST 2V PA LATERAL from 10/10/2021 FINDINGS: MEDIASTINUM: Normal. HEART: Normal. PULMONARY VASCULATURE: Normal. LUNGS: The lungs are hyperinflated suggesting underlying COPD. No focal infiltrates are seen. PLEURAL SPACE: No pleural effusion or pneumothorax. BONE:Within normal limits for the patient's age. There again seen side plates and screws transfixing an old right clavicular fracture. OTHER FINDINGS:Normal. IMPRESSION: No acute pulmonary findings. DATA REPOSITORY: RADIATION DOSE DELIVERED:
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
--- NOTE | 2022-12-01 09:11 | PGE_ITS ---
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 Will repeat head CT as per trauma recommendation, otherwise monitor with neuro checks overnight. Asymptomatic wheezing noted, will treat with prn updrafts Essential tremor: usual beta renetta and primidone Reviewed ADs, requests DNR Subjective Subjective Patient reports: no new complaints and pain is less Objective Last Vital Signs Temp 37 C 12/01/22 07:25 Pulse 87 12/01/22 07:38 Resp 20 12/01/22 07:25 BP 125/82 12/01/22 07:25 Pulse Ox 92 12/01/22 07:25 Laboratory Results - last 24 hr 11/30/22 11/30/22 11/30/22 15:08 15:08 15:08 WBC 8.90 RBC 4.77 Hgb 13.8 Hct 41.6 MCV 87 MCH 28.9 MCHC 33.2 RDW 15.7 H Plt Count 352 MPV 9.4 Immature Gran % 2.8 Neutrophils % 76.4 Lymphocytes % 11.0 Monocytes % 8.3 Eosinophils % 1.2 Basophils % 0.3 Nucleated RBC % 0.0 Absolute Neutrophils 6.79 H Absolute Lymphocytes 0.98 L Absolute Monocytes 0.74 Absolute Eosinophils 0.11 Absolute Basophils 0.03 Sodium 139 Potassium 4.5 Chloride 99 Carbon Dioxide 35.2 H Anion Gap 4.8 BUN 17 Creatinine 1.0 Est GFR (CKD-EPI 2020) 78.49 Glucose 118 H Calcium 9.6 Magnesium 2.2 Total Bilirubin 0.4 AST 66 H ALT 62 Alkaline Phosphatase 111 Troponin I < 50 Total Protein 8.8 H Albumin 2.9 L Lipase 51 Patient ABO/Rh A Positive Antibody Screen NEGATIVE
--- NOTE | 2022-12-01 09:35 | DI.VRAD_ITS ---
PROCEDURE INFORMATION: Exam: XR Chest Exam date and time: 12/01/2022 8:05 AM Age: 77 years old Clinical indication: Other: Diminished lung sounds TECHNIQUE: Imaging protocol: Radiologic exam of the chest. Views: 1 view. COMPARISON: CT CHEST/ABD/PEL W 11/30/2022 3:21 PM FINDINGS: Lungs: Hyperexpanded lung wilburn consistent with COPD. No focal consolidation.. Pleural spaces: Unremarkable. No pleural effusion. No pneumothorax. Heart/Mediastinum: Unremarkable. No cardiomegaly. Bones/joints: Plate and screws along the right clavicle IMPRESSION: Hyperexpanded lung wilburn consistent with COPD. No focal consolidation.. Dictated and Authenticated by: Luz Sparks MD. Ordering:NELIA Wu MD
[2022-12-01] MEDS: Propranolol 60 MG CAPCR 120 MG PO (09:58)
[2022-12-01] MEDS: Acetaminophen 500 MG TAB 1000 MG PO ×2 (09:59→21:58)
[2022-12-01] MEDS: Primidone 250 MG TAB PO ×3 (10:00→20:45)
--- NOTE | 2022-12-01 11:07 | NUR.NOTE ---
11:04 a.m. Transfer this patient to ICU and gave report to Nurse Law. Patient taken by wheelchair with two RN's Joe & Jayro) assisting. Stand and pivot to ICU bed uneventful. Nursing Note:
--- NOTE | 2022-12-01 12:48 | RESPIRATORY ---
Patient brought in his home CPAP to use while here, patient uses a DreamStation 2 Auto-CPAP with settings of min 8/max 14. The DME of the machine and supplies is [facility] and he uses a [employer]ironics [place] FFM size Medium. Patient was telling he got this machine about two months ago as his other machine, a DreamStation, was part of the national recall.
--- NOTE | 2022-12-01 15:49 | SCONE_ITS ---
Date of service: 12/01/22 Time of Service: 15:30 Assessment and Plan Assessment and plan (1) Minor contusion of spleen: Status: Acute Assessment and plan: I reviewed the CT scan findings myself. There is no free fluid in the abdomen, specifically in the LUQ. While there may be a minor splenic contusion present, I'm not convinced there is radiographic certainty of this and I think for sure, there is no laceration. My only recommendation is to repeat a Hgb now(I ordered this) and one before dis charge, to be certain there is no ongoing bleeding which is almost certainly not happening based off of the clinical status. OVERALL: Follow neurosurgery recs for TBI Follow spine surgery recs for spine fxs Ensure stable Hgb for possible splenic injury. If stable, no further followup or management. If patient becomes unstable or Hgb starts to drop, please page us(surgery) immediately. As long as Hgb is stable, I agree with allowing the patient to ambulate and be OOB. History of Present Illness Narrative: Asked by hospitalist to consult on a possible traumatic splenic injury. Patient reportedly fell from a ladder yesterday evening. Injuries sustained include spinal fractures, small SA hemorrhage and the possibility of a splenic contusion. Patient has been, and continues to be, HD stable and has had no cognitive deficits, GCS changes/decline and also denies any significant abdominal or back discomfort. Per hospitalist, outside consultation with either spine surgery or trauma surgery as well as neurosurgery has been taken care of for those injuries. They were directed that the patient can ambulate. They repeated a head CT showing the SA bleed as stable. The patient is not on blood thinners and has a normal coagulation profile. A repeat Hgb has not been performed since admission yesterday evening. [facility] All Active Problems (Updated 12/01/22 @ 16:03 by Thomas Galeana MD) Minor contusion of spleen (Acute) Fall (Acute) Subarachnoid bleed (Acute) Contusion of spleen (Acute) Lumbar transverse process fracture (Acute) Nicotine dependence, cigarettes, uncomplicated (Acute) Constipation (Acute) ROE and COPD overlap syndrome (Acute) Rib pain on right side (Acute) Fall as cause of accidental injury at home as place of occurrence (Acute) Anemia, iron deficiency (Acute) Weight loss, abnormal (Acute) Tubular adenoma (Acute 01/29/16) Mass of vallecula (Acute) Pharyngeal dysphagia (Acute) Aspiration into lower respiratory tract (Acute) Vocal cord dysfunction (Acute) Vocal cord paralysis (Acute) Ribs, multiple fractures (Acute 06/05/13) Ribs 7 through 9 Atelectasis (Acute 06/05/13) COPD (chronic obstructive pulmonary disease) (Chronic) Jun 24, 2012 PFT's with FEV1 60% predicted, severe obstrtuctive disease with no significatn bronchodilator response. Tobacco abuse (Chronic) Ongoing tobacco use, nicotiune replacement not helpful, Chntix helped in the past but could not afford. PFT's performed 07/03/12 with REV1 60% predicted, severe obstrructive disease with no significant bronchodilator response. Sleep apnea (Chronic) Treated with CPAP. Essential tremor (Chronic) Chronic back pain (Chronic) Weight loss (Acute) Dysphagia (Acute) Hyperlipidemia (Chronic) Medical History Chronic low back pain Cigarette smoker Colon polyps 01/08/19 w/ Dr Marya Stinson, [facility], tubular adenoma, repeat 3 yrs 01/29/16 w/ Dr. Aleyda Irizarry, 4 tubular adenoma's, repeat 3 years COPD (chronic obstructive pulmonary disease) Hearing loss History of broken collarbone right collarbone fx with hardware- per pt 6 years ago Polyuria Shoulder pain, left Sleep apnea Tremor Surgical History Hx of surgical procedure clavicle repair Hx of thumb surgery 1973. Hardware in place Family History Mother Colon cancer Social History Smoking/Tobacco Use Status: Current every day Tobacco Type: cigarettes Tobacco: How many years used: 50 Smoking risk assessment performed?: Yes Alcohol Intake: never Drug use: Never Substance use type: does not use Details: QUIT SMOKING A MONTH AGO, CURRENTLY USING CHANTIX TO QUIT Additional Social history: Results Last Vital Signs Temp 98.6 F 12/01/22 11:00 Pulse 80 12/01/22 11:00 Resp 24 12/01/22 11:00 BP 109/75 12/01/22 11:00 Pulse Ox 93 12/01/22 11:00 Labs 11/30/22 15:08 11/30/22 15:08 Labs: Laboratory Results - last 24 hr 11/30/22 15:08 Patient ABO/Rh A Positive Antibody Screen NEGATIVE
--- NOTE | 2022-12-01 16:13 | PGE_ITS ---
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 (2) Lumbar transverse process fracture: Status: Acute Assessment and plan: Not complaining of back pain that he desires pain medication to relive other than acetaminophen. If muscle spasms and pain develops, consider muscle relaxant. (3) COPD (chronic obstructive pulmonary disease): Assessment and plan: No exacerbation but does have intermittent cough. Acapella and IS. Cont Trelegy Ellipta and prn albuterol. (4) ROE and COPD overlap syndrome: Status: Acute Assessment and plan: CPAP. (5) Tremor: Assessment and plan: Cont BB and primadone. (6) Contusion of spleen: Status: Acute Assessment and plan: Consulted general surgery; appreciated recommendations. Monitor VS and H/H. (7) Subarachnoid bleed: Status: Acute Assessment and plan: He had an initial CT head and a repeat 6 hours later as recommended by [facility] neurosurgery. Monitor for any decompensation / sxs that would possibly indicate further bleeding. Subjective Subjective Patient reports: no new complaints and afebrile; denies shortness of breath Interval history since last seen: Has had a headache intermittently since presentation. Not asking for anything other than acetaminophen for pain. Using his CPAP when napping. + loose/wet sounding cough. Exam Narrative Exam Narrative: HEENT atraumatic Neck supple w/o spinal tenderness Lungs diffuse rhonchi Heart distant/RRR Abdomen soft and NT Back mild non-specific lower back tenderness which does not localize to any point Extremities w/o edema; full ROM pain free, no bruising Neuro Ox3, lucid, moves all 4s Objective Last Vital Signs Temp 37 C 12/01/22 11:00 Pulse 80 12/01/22 11:00 Resp 24 12/01/22 11:00 BP 109/75 12/01/22 11:00 Pulse Ox 93 12/01/22 11:00 Laboratory Results - last 24 hr 11/30/22 15:08 Patient ABO/Rh A Positive Antibody Screen NEGATIVE Time Spent with Patient Time Spent with Patient: 25-34 minutes Time was spent: preparing to see the patient(eg.review tests), obtaining and/or reviewing separately otained hiistory, ordering medications,tests, procedures and referring, communicating with other health healthcare social worker
[2022-12-01 16:19] LABS: HCT 37.6 % (40.0-50.0); HGB 12.7 g/dL (13.5-17.5)
[2022-12-01] MEDS: Normal Saline Flush 10 ML SYR IVP (20:46)
--- NOTE | 2022-12-01 21:30 | DI.RAD_ITS ---
Exam(s) XR PORTABLE CHEST AP EXAM: XR PORTABLE CHEST AP CLINICAL HISTORY: fever TECHNIQUE: 2D digital imaging was performed of the chest. One image was obtained. An AP view was ob tained. COMPARISON: CR,XR XR PORTABLE CHEST AP from 12/01/2022 FINDINGS: MEDIASTINUM: Normal. HEART: Normal. PULMONARY VASCULATURE: Normal. LUNGS: No focal consolidation. PLEURAL SPACE: No pleural effusion or pneumothorax. BONE:Within normal limits for the patient's age. There is again seen a plate and screw set in the rig ht clavicle. OTHER FINDINGS:Normal. IMPRESSION: No acute pulmonary findings. DATA REPOSITORY: RADIATION DOSE DELIVERED:
--- NOTE | 2022-12-01 22:02 | W.EVENT ---
Date of service: 12/01/22 Time of Service: 22:02 Event Note: Called for fever. Case reviewed, admitted last night with multitrauma resulting from fall from ladder, suffering tiny and stable right parietal SAH vs cerebral contusion; splenic contusion; and fracture left L5 transverse process. At present patient he feels fine; specifically denies cough, CP, abd pain, diarrhea, dysuria; does note a degree of residual frontal YANG but this is not new. On exam: BP 118/78, pulse 90, temp 38.5, RR25, 92% RA. Lungs diminished; heart RRR; abdomen soft and NT; extremities w/o edema, calves NT; no skin wound or rash noted A/P: fever, source not immediately apparent. Will check CXR, urinalysis and obtain set of blood cultures. PS: CXR negative, urinalysis pending Time Spent with Patient Time spent in critical care(minutes): 25 Time Spent Included: Chart review, Documenting critically ill care, Time at immediate bedside and Other
--- NOTE | 2022-12-01 22:13 | DI.VRAD_ITS ---
PROCEDURE INFORMATION: Exam: XR Chest Exam date and time: 12/01/2022 9:47 PM Age: 77 years old Clinical indication: Fever TECHNIQUE: Imaging protocol: Radiologic exam of the chest. Views: 1 view. COMPARISON: CR XR PORTABLE CHEST AP 12/01/2022 8:05 AM FINDINGS: Lungs: Chronic interstitial prominence. No consolidation. Pleural spaces: No pleural effusion. No pneumothorax. Heart/Mediastinum: Tortuous aorta. No cardiomegaly. Bones/joints: Grossly stable postsurgical changes in the right clavicle IMPRESSION: No acute findings. Dictated and Authenticated by: Nash Solano MD. Ordering:SOMMER Gonzalez MD
[2022-12-02] VITALS: BP 128/74; RESP 26; TEMP 38; O2SAT 92
[2022-12-02 04:12] LABS: Bilirubin Negative (Negative); Blood Negative (Negative); Clarity Clear (Clear); Glucose Negative (Negative); Ketones Negative (Negative); Leukocyte Esterase Negative (Negative); Nitrite Negative (Negative); Specific Gravity 1.015 (1.005-1.025)
[2022-12-02 04:17] VITALS: BP 122/74; RESP 18; TEMP 36.8; O2SAT 94
[2022-12-02 06:02] LABS: Abs Immature Grans 0.02 10^3/uL (0.0-0.06); Absolute Basophil Count 0.04 10^3/uL (0.0-0.2); Absolute Eosinophil Count 0.06 10^3/uL (0.0-0.7); Absolute Lymphocyte Count 0.85 10^3/uL (1.2-3.4); Absolute Monocyte Count 0.63 10^3/uL (0.1-0.8); Absolute Neutrophil Count 4.62 10^3/uL (1.2-6.7); Basophils % 0.6; HCT 36.5 % (40.0-50.0); HGB 12.5 g/dL (13.5-17.5); Immature Grans % 0.3; Lymphocytes % 13.7; MCH 29.6 pg (27.0-33.0); MCHC 34.2 % (32.0-36.0); MCV 86 fL (80-95); MPV 9.6 fL (8.0-11.0); Monocytes % 10.1; Neutrophils % 74.3; Platelet Count 188 10^3/uL (130-400); RBC 4.23 10^6/uL (4.36-5.78); RDW 15.6 % (11.8-14.1); RDW-SD 49.2 fL; WBC 6.22 10^3/uL (4.4-10.8)
[2022-12-02 06:14] LABS: Anion Gap 7.2 mmol/L (3-11); BUN 12 mg/dL (7-18); CO2 28.8 mmol/L (21.0-32.0); CREATININE 0.8 mg/dL (0.70-1.30); Calcium 8.9 mg/dL (8.5-10.1); Chloride 100 mmol/L (98-107); Estimated GFR 92.29 (mL/min/1.73m2); Glucose 107 mg/dL (74-106); Magnesium 1.9 mg/dL (1.8-2.4); Potassium 4.1 mmol/L (3.5-5.1); Sodium 136 mmol/L (136-145)
[2022-12-02 07:15] VITALS: TEMP 36.6
[2022-12-02 07:42] VITALS: BP 129/78; PULSE 79; RESP 20; TEMP 36.6; O2SAT 93
[2022-12-02] MEDS: Cholecalciferol (Vitamin D3) 1,000 UNIT TAB 2000 UNITS PO (08:41)
[2022-12-02] MEDS: Acetaminophen 500 MG TAB 1000 MG PO (08:41)
[2022-12-02] MEDS: Primidone 250 MG TAB PO (08:41)
[2022-12-02] MEDS: Propranolol 60 MG CAPCR 120 MG PO (08:41)
--- NOTE | 2022-12-02 09:03 | PDOC.CMPRO ---
Date of service: 12/02/22 Time of Service: 09:03 Care Management Progress Note Progress Note Text Progress Note Text: S/O:Ed was sitting up in a chair when CM met with him. He seemed to be in good spirits and engaged well with CM. Ed still complains of pain in his left rib area but denies back pain. His neurological checks have been within normal limits. A PT evaluation is scheduled for today. If Ed does well, it is likely he will be discharged home later in the day. A: Ed is a 77 year old man admitted on 11/30/22 following a fall with trauma to head and back P:Anticipate Ed will be discharged home with no new services. He will follow up with his PCP and plan of care as prescribed and transport with a friend. CM will continue to follow and support discharge needs.
[2022-12-02] MEDS: Celecoxib 200 MG CAP PO (09:11)
--- NOTE | 2022-12-02 11:26 | PGE_ITS ---
Date of Service Date of service: 12/02/22 Time of Service: 11:26 Assessment and Plan Assessment and plan (1) Minor contusion of spleen: Status: Acute Assessment and plan: Klever is a 77-year-old gentleman who fell from a ladder. We were consulted for a splenic contusion. The patient has no fluid in his abdomen on CT scan. He has no abdominal pain, nausea or vomiting. Hemoglobin and hematocrit have been stable. From a surgical standpoint he is okay to be up and around. He does not need to be restricted. We will sign off but if there is any concerns please just give us a call back and we will be happy to see him thank you Subjective Subjective Interval history since last seen: Mr. Holguin is a pleasant 77-year-old gentleman who was admitted late on November 30 after falling from a ladder. He had a CT scan of the head C-spine chest abdomen pelvis. He was noted to have a subarachnoid hematoma versus contusion without neurologic deficits, splenic contusion, and L5 fracture. Surgery was consulted and because of the splenic contusion. There is no fluid in his abdomen specifically the left upper quadrant. He has been hemodynamically stable. His hemoglobin has been stable. Patient does not complain of any abdominal pain, nausea or vomiting. Exam GI Palpation: soft, no hepatosplenomegaly and nontender Objective Last Vital Signs Temp 97.9 F 12/02/22 07:42 Pulse 79 12/02/22 07:42 Resp 20 12/02/22 07:42 BP 129/78 12/02/22 07:42 Pulse Ox 93 12/02/22 07:42 Laboratory Results - last 24 hr 12/01/22 12/02/22 12/02/22 16:07 04:00 05:36 WBC RBC Hgb 12.7 L Hct 37.6 L MCV MCH MCHC RDW Plt Count MPV Immature Gran % Neutrophils % Lymphocytes % Monocytes % Eosinophils % Basophils % Nucleated RBC % Absolute Neutrophils Absolute Lymphocytes Absolute Monocytes Absolute Eosinophils Absolute Basophils Sodium 136 Potassium 4.1 Chloride 100 Carbon Dioxide 28.8 Anion Gap 7.2 BUN 12 Creatinine 0.8 Est GFR (CKD-EPI 2020) 92.29 Glucose 107 H Calcium 8.9 Magnesium 1.9 Urine Color Yellow Urine Clarity Clear Urine pH 7.0 Ur Specific [employer] 1.015 Urine Protein Negative Urine Ketones Negative Urine Blood Negative Urine Nitrite Negative Urine Bilirubin Negative Urine Urobilinogen 2.0 H Ur Leukocyte Esterase Negative Urine Glucose Negative 12/02/22 05:36 WBC 6.22 RBC 4.23 L Hgb 12.5 L Hct 36.5 L MCV 86 MCH 29.6 MCHC 34.2 RDW 15.6 H Plt Count 188 MPV 9.6 Immature Gran % 0.3 Neutrophils % 74.3 Lymphocytes % 13.7 Monocytes % 10.1 Eosinophils % 1.0 Basophils % 0.6 Nucleated RBC % 0.0 Absolute Neutrophils 4.62 Absolute Lymphocytes 0.85 L Absolute Monocytes 0.63 Absolute Eosinophils 0.06 Absolute Basophils 0.04 Sodium Potassium Chloride Carbon Dioxide Anion Gap BUN Creatinine Est GFR (CKD-EPI 2020) Glucose Calcium Magnesium Urine Color Urine Clarity Urine pH Ur Specific [employer] Urine Protein Urine Ketones Urine Blood Urine Nitrite Urine Bilirubin Urine Urobilinogen Ur Leukocyte Esterase Urine Glucose Time Spent with Patient Time Spent with Patient: <25 minutes Time was spent: preparing to see the patient(eg.review tests) and counseling the patient
[2022-12-02] MEDS: Bacitracin 1 PACKET (11:53)
[2022-12-02 12:21] VITALS: BP 96/63; PULSE 75; RESP 18; TEMP 36.8; O2SAT 95
--- NOTE | 2022-12-02 12:56 | IN_ITS ---
Date of service: 12/02/22 Time of Service: 10:37 PT Notes Visit Reasons: Multi-Trauma Physical Therapy Inpatient Initial Evaluation Date: 12/02/2022 Referring Doctor: Bryce Steiner MD PT Orders: PT CONSULT: Eval/Treat Precautions: Fall. Standard. Activity as tolerated. Patient Profile/Admitting Diagnosis: It is a 77-year-old male who presented to the ED on 11/30/2022 due to chest pain and abdominal pain resulting from a 10 10-foot fall from a ladder onto ground landing on his back first. Patient is admitted for management of lumbar transverse process fracture, fall, COPD, ROE, tremors, contusion of spleen, and subarachnoid bleed. PMHX: All Active Problems? Fall (Acute) Subarachnoid bleed (Acute) Contusion of spleen (Acute) Lumbar transverse process fracture (Acute) Nicotine dependence, cigarettes, uncomplicated (Acute) Constipation (Acute) ROE and COPD overlap syndrome (Acute) Rib pain on right side (Acute) Fall as cause of accidental injury at home as place of occurrence (Acute) Anemia, iron deficiency (Acute) Weight loss, abnormal (Acute) Tubular adenoma (Acute 01/29/16) Mass of vallecula (Acute) Pharyngeal dysphagia (Acute) Aspiration into lower respiratory tract (Acute) Vocal cord dysfunction (Acute) Vocal cord paralysis (Acute) Ribs, multiple fractures (Acute 06/05/13) Ribs 7 through 9Atelectasis (Acute 06/05/13) COPD (chronic obstructive pulmonary disease) (Chronic) Jun 24, 2012 PFT's with FEV1 60% predicted, severe obstrtuctive disease with no significatn bronchodilator response. Tobacco abuse (Chronic) Ongoing tobacco use, nicotiune replacement not helpful, Chntix helped in the past but could not afford. PFT's performed 07/03/12 with REV1 60% predicted, severe obstrructive disease with no significant bronchodilator response. Sleep apnea (Chronic) Treated with CPAP.Essential tremor (Chronic) Chronic back pain (Chronic) Weight loss (Acute) Dysphagia (Acute) Hyperlipidemia (Chronic) Medical History? Chronic low back pain Cigarette smoker Colon polyps 01/08/19 w/ Dr Marya Stinson, [facility], tubular adenoma, repeat 3 yrs 1 01/29/16 w/ Dr. Aleyda Irizarry, 4 tubular adenoma's, repeat 3 yearsCOPD (chronic obstructive pulmonary disease) Hearing loss History of broken collarbone right collarbone fx with hardware- per pt 6 years ago Polyuria Shoulder pain, left Sleep apnea Tremor Surgical History? Hx of surgical procedure clavicle repair Hx of thumb surgery 1973. Hard[address] in place Social History/Home Situation: Lives with two adults in a private home with 5 steps to enter with rails that are far apart. Adults help out with meals and laundry. Daughter Maria Esther still drives. Still drives. Equipment Owned/DME: Standard walker, SPC Subjective: Patient reports chronic back pain at 4/10 with movement transitions. Daughter Maria Esther concerned about patient driving. She does not feel safe about it. denies heaache, chets ain, and lightheadedness throughout. Did report fatigue that required seated rests. Declined the FWW, stating that he is all set with his standard walker. Objective: General Observation: Seated on bedside chair. Telemetry removed by Nurse Watts as patient no longer needed it. Daughter Maria Esther present during evaluation. Mental Status: Alert and oriented as to person, place, time, and purpose. Able to pay attention, focus, and respond appropriately. Pain: 4/10 in in low back area Vital Signs: Closely monitored by nursing staff ROM: Right Upper Extremity: Shoulder Flexion lacks the last 25% of AROM. Shoulder abduction lacks the last 25% of AROM. Elbow flexion WFL. Wrist flexion WFL. Functional opening and closing of hand WFL. Left Upper Extremity: Shoulder Flexion lacks the last 25% of AROM. Shoulder abduction lacks the last 25% of AROM. Elbow flexion WFL. Wrist flexion WFL. Functional opening and closing of hand WFL. Right Lower Extremity: Hip flexion lacks the last 25% of AROM. Hip abduction lacks the last 25% of AROM. Knee flexion WFL. Ankle dorsiflexion to neutral only. Ankle plantarflexion WFL. Left Lower Extremity: Hip flexion lacks the last 25% of AROM. Hip abduction lacks the last 25% of AROM. Knee flexion WFL. Ankle dorsiflexion to neutral only. Ankle plantarflexion WFL. Strength: Right Upper Extremity: Shoulder flexors 3-/5. Shoulder abductors 3-/5. Elbow flexors 4-/5. Elbow extensors 4-/5. Motion Picture [employer] strong. Left Upper Extremity: Shoulder flexors 3-/5. Shoulder abductors 3-/5. Elbow flexors 4-/5. Elbow extensors 4-/5. [employer] Picture [employer] strong. Right Lower Extremity: Hip flexors 3-/5. Hip abductors 3-/5. Knee flexors 4-/5. Knee extensors 4-/5. Ankle dorsiflexors 3-/5. Ankle plantarflexors 4-/5. Left Lower Extremity: Hip flexors 3-/5. Hip abductors 3-/5. Knee flexors 4-/5. Knee extensors 4-/5. Ankle dorsiflexors 3-/5. Ankle plantarflexors 4-/5. Bed Mobility/Transfers: Sit to stand with supervision using FWW Stand to sit with supervision using FWW Bed to bedside commode with supervision using FWW Bedside commode to bed with supervision using FWW Bed to reclining chair with supervision using FWW Reclining chair to bed with supervision using FWW Gait: Instructed patient with level surface ambulation of 100 feet + 200 feet requiring stand by assist with FWW. Lucy decreased. Step height ddecreased. Step length decreased. Mild SOB that required rest. Stairs: Ascended and descended 6 x 4 inch steps and 4 x 6 inch steps while holding onto rail on one side and a single-point cane on the other side with supervision with mild increase in report of back pain that subsided with rest. Balance: Static Sitting: Normal Dynamic Sitting: Normal Static Standing: Fair Dynamic Standing: Fair Special Tests: Mobility Limitations Standardized Measure [facility] AM-PAC 6 clicks Basic Mobility Inpatient Short Form: Raw Score: 24 CMS Score: 0% deficit Informed Consent/Education: Patient was instructed in purpose of PT consult and plan of care. Agreeable to proceed with established PT POC to achieve personal goals. Assessment: Patient requires the use of a front wheeled walker to maximize independence, minimize report of low back pain, and reduce fall risk. Patient presents with clinical signs and symptoms consistent with current/admitting diagnoses that have resulted to mobility limitations, gait instability, generalized weakness, and overall ADL decline as demonstrated by the following impairment level findings: 1. Decreased strength to B UE/LE major muscle groups 2. Impaired standing balance 3. Impaired activity tolerance 4. Limitation of joint range of motion in B shulders and hips (chronic) 5. Shortness of breath 6. Low back pain (chronic) Impairments are contributing to the following functional limitations: 1. Difficulty with ambulation without assistive device 2. Increased completion time for mobility ADL performance 3. Increased risk for falls 4. Difficulty with managing steps alone safely Patient is assessed as a 82476 moderate complexity based on the following: History: 77-year-old male with past medical history as indicated above Examination: Demonstrable impairment in strength, balance, and mobility level with underlying impairments and functional limitations as exhibited above as well as deficit score of 0% utilizing the [facility] Mobility Inpatient Short Form Presentation: Stable Decision Makin moderate complexity Goals: N/A. PT evalaution only and 1 treatment session for functional mobility training. Plan of Care/Treatment Plan: N/A. PT evalaution only and 1 treatment session for functional mobility training. DISCHARGE RECOMMENDATIONS: [] Home with no services [] [X] Home with services. Patient will benefit from home health PT services in order to progress mobility level using least restrictive assistive ambulatory device, assess home safety, identify additional equipment needs, and establish a functional maintenance program that will increase ability of patient to remain at home. [] Home with outpatient PT [] [] SNF for continued rehabilitation [] [] Jail Care [] [] SNF versus LTC based on ability to participate and progress [] TREATMENT CODE/TIME: 9716 2 x 20 minutes, 9753 0 x 11 minutes beginning at 10:37 AM. Thank you for the opportunity to participate in the care of this patient. Lasahnda Saul PT, DPT, CLT [facility] [place], [place]
--- NOTE | 2022-12-02 14:23 | W.PM.DS.N ---
Date of service: 12/02/22 Time of Service: 14:23 DS: Diagnosis Discharge Diagnosis (1) Minor contusion of spleen: Status: Acute Asessment and Plan: Trauma consult from [facility] when in ED. General Surgery, [facility], consulted. Monitored in the ED. Hgb stable. No specific LUQ abd pain. Cleared for d/c by Gen. Surg. (2) Subarachnoid bleed: Status: Acute Asessment and Plan: Very tiny area of bleed for contusion. A repeat CT 6 hours after the initial scan showed no changed in the size. No neurologic changes/deficits noted while hospitalized. (3) Lumbar transverse process fracture: Status: Acute Asessment and Plan: He has not asked for pain medication other than an occasional acetaminophen. PT evaluated and he ambulated w/o assist. He was given 400mg Ibuprofen and this helped the left rib / chest wall pain considerably. (4) ROE and COPD overlap syndrome: Status: Acute Asessment and Plan: Cont CPAP, Trelegy, prn albuterol. Stable w/o exacerbation. Discharge Plan Disposition Patient Disposition: Home Condition: Improving Discharge Details Reason For Visit: Multi-Trauma Admit Date/Time: 11/30/22 19:37 Admit Provider: Carlos Wadsworth Attending Provider: Carlos Wadsworth [facility] Hospital Course: This is a 77 yo male that fell ten feet off ladder on day of presentation. Last he remembers is someone on roof asking him for help; does not remember the fall itself, but found himself then on the ground. C/O frontal headache (but this is not unusual for him), diffuse chest and abdominal pain, and lower back pain (this is chronic, says not different). In ER findings of note for head CT showing tiny area of bleeding right parietal, SAH vs cerebral contusion; splenic contusion; and left non-displaced L5 transverse process [id number]. [facility] trauma was consulted and advised. See Diagnosis F/U with PCP in 1 week. Home Meds and New Rx's Prescriptions: New acetaminophen 500 mg Tablet 650 mg PO TID PRN PRNQty: 0 0RF Continued albuterol sulfate 90 mcg/actuation HFA aerosol inhaler 2 puff inhalation Q6H PRN (Reason: shortness of breath or wheezing) Qty: 8.5 12RF Trelegy Ellipta 100-62.5-25 mcg blister with device 1 inh inhalation DAILY Qty: 60 5RF propranolol 120 mg capsule,extended release 24 hr 120 mg PO DAILY cholecalciferol (vitamin D3) 50 mcg (2,000 unit) capsule 50 mcg PO DAILY primidone 250 mg tablet 300 mg PO TID Qty: 270 Discharge Instructions Additional Instructions: Return to Emergency Room for any confusion. Call PCP for fever/chills, persistent headache. Activity:: Activity as Tolerated Equipment/Supplies:: No Equipment Needed Diet:: Resume usual home diet Discharge Orders Discharge Orders: Discharge Order (Routine); Ordered 12/02/22 Ordered By: Bryce Steiner DS: Summary Time Spent with Patient providing and/or coordinating discharge services: Greater than 30 minutes Status at Discharge Functional status at discharge: independent ambulation Overall status at discharge: patient is progressing back to baseline Mental Status: mental status grossly normal Speech and Movement: speech clear Mood: congruent mood Affect: normal affect Exam Narrative Exam Narrative: HEENT atraumatic Neck supple w/o spinal tenderness Chest with tenderness in left lateral ribs/thorax. Lungs diffuse rhonchi Heart distant/RRR Abdomen soft and NT Back no current tenderness. Extremities w/o edema; full ROM pain free, no bruising Neuro Ox3, lucid, moves all 4s Psych Mental Status: mental status grossly normal Speech and Movement: speech clear Mood: congruent mood Affect: normal affect DS: Data Vitals/I&O Vitals and I&O: Vital Signs Temperature 36.8 C 12/02/22 12:21 Temperature Source Tympanic 12/02/22 12:21 Pulse 75 12/02/22 12:21 Pulse Rhythm Regular 12/01/22 07:40 Pulse 83 11/30/22 20:31 Respiratory Rate 18 12/02/22 12:21 Respiratory Effort Normal, Non-Labored 12/02/22 07:15 Respiratory Depth Normal 12/02/22 07:15 Respiratory Pattern Normal 12/02/22 07:15 Blood Pressure 96/63 L 12/02/22 12:21 Blood Pressure Mean 90 12/02/22 04:17 Blood Pressure Position Supine 12/02/22 04:17 Pulse Oximetry 95 12/02/22 12:21 Oxygen Delivery Method Room Air 12/02/22 12:21 Oxygen Flow Rate 0 12/02/22 12:21 Fraction of Inspired Oxygen (FIO2) 21 12/02/22 09:34 Pain Level 2 12/02/22 12:21 Comment MAP of 90 12/01/22 22:00 Intake & Output 12/01/22 12/02/22 12/02/22 23:59 11:59 23:59 Intake Total 360 / 360 400 / 460 60 / 460 Output Total 625 / 1075 475 / 475 Balance -265 / -715 -75 / -15 60 / -15 Weight 59.4 kg Intake: Oral 360 / 360 400 / 460 60 / 460 Output: Urine 625 / 1075 475 / 475 Other: Urine Color Light Korin Yellow Straw Urine Appearance Cloudy Clear Urine Odor Foul Strong Comment UA re-collected at this time d/t urine spill on previous collection urine specimen collected at this time Voiding Methods Urinal Urinal Data Completed and Pending Labs on day of discharge: Labs from last 24 hours 12/02/22 12/02/22 12/02/22 05:36 05:36 04:00 WBC 6.22 RBC 4.23 L Hgb 12.5 L Hct 36.5 L MCV 86 MCH 29.6 MCHC 34.2 RDW 15.6 H Plt Count 188 MPV 9.6 Immature Gran % 0.3 Neutrophils % 74.3 Lymphocytes % 13.7 Monocytes % 10.1 Eosinophils % 1.0 Basophils % 0.6 Nucleated RBC % 0.0 Absolute Neutrophils 4.62 Absolute Lymphocytes 0.85 L Absolute Monocytes 0.63 Absolute Eosinophils 0.06 Absolute Basophils 0.04 Sodium 136 Potassium 4.1 Chloride 100 Carbon Dioxide 28.8 Anion Gap 7.2 BUN 12 Creatinine 0.8 Est GFR (CKD-EPI 2020) 92.29 Glucose 107 H Calcium 8.9 Magnesium 1.9 Urine Color Yellow Urine Clarity Clear Urine pH 7.0 Ur Specific [place] 1.015 Urine Protein Negative Urine Ketones Negative Urine Blood Negative Urine Nitrite Negative Urine Bilirubin Negative Urine Urobilinogen 2.0 H Ur Leukocyte Esterase Negative Urine Glucose Negative 12/01/22 16:07 WBC RBC Hgb 12.7 L Hct 37.6 L MCV MCH MCHC RDW Plt Count MPV Immature Gran % Neutrophils % Lymphocytes % Monocytes % Eosinophils % Basophils % Nucleated RBC % Absolute Neutrophils Absolute Lymphocytes Absolute Monocytes Absolute Eosinophils Absolute Basophils Sodium Potassium Chloride Carbon Dioxide Anion Gap BUN Creatinine Est GFR (CKD-EPI 2020) Glucose Calcium Magnesium Urine Color Urine Clarity Urine pH Ur Specific [place] Urine Protein Urine Ketones Urine Blood Urine Nitrite Urine Bilirubin Urine Urobilinogen Ur Leukocyte Esterase Urine Glucose 12/01/22 22:00 Blood Blood Culture - Pending 12/01/22 22:04 Blood Blood Culture - Pending Preliminary micro results at discharge 12/01/22 22:00 Blood Culture - Pending Blood 12/01/22 22:04 Blood Culture - Pending Blood [facility] All Active Problems Minor contusion of spleen (Acute) Fall (Acute) Subarachnoid bleed (Acute) Contusion of spleen (Acute) Lumbar transverse process fracture (Acute) Nicotine dependence, cigarettes, uncomplicated (Acute) Constipation (Acute) ROE and COPD overlap syndrome (Acute) Rib pain on right side (Acute) Fall as cause of accidental injury at home as place of occurrence (Acute) Anemia, iron deficiency (Acute) Weight loss, abnormal (Acute) Tubular adenoma (Acute 01/29/16) Mass of vallecula (Acute) Pharyngeal dysphagia (Acute) Aspiration into lower respiratory tract (Acute) Vocal cord dysfunction (Acute) Vocal cord paralysis (Acute) Ribs, multiple fractures (Acute 06/05/13) Ribs 7 through 9 Atelectasis (Acute 06/05/13) COPD (chronic obstructive pulmonary disease) (Chronic) Jun 24, 2012 PFT's with FEV1 60% predicted, severe obstrtuctive disease with no significatn bronchodilator response. Tobacco abuse (Chronic) Ongoing tobacco use, nicotiune replacement not helpful, Chntix helped in the past but could not afford. PFT's performed 07/03/12 with REV1 60% predicted, severe obstrructive disease with no significant bronchodilator response. Sleep apnea (Chronic) Treated with CPAP. Essential tremor (Chronic) Chronic back pain (Chronic) Weight loss (Acute) Dysphagia (Acute) Hyperlipidemia (Chronic) Medical History Chronic low back pain Cigarette smoker Colon polyps 01/08/19 w/ Dr Marya Stinson, [facility], tubular adenoma, repeat 3 yrs 01/29/16 w/ Dr. Aleyda Irizarry, 4 tubular adenoma's, repeat 3 years COPD (chronic obstructive pulmonary disease) Hearing loss History of broken collarbone right collarbone fx with hardware- per pt 6 years ago Polyuria Shoulder pain, left Sleep apnea Tremor Surgical History Hx of surgical procedure clavicle repair Hx of thumb surgery 1973. [address] in place Family History Mother Colon cancer Social History Smoking/Tobacco Use Status: Current every day Tobacco Type: cigarettes Tobacco: How many years used: 50 Smoking risk assessment performed?: Yes Alcohol Intake: never Drug use: Never Substance use type: does not use Details: QUIT SMOKING A MONTH AGO, CURRENTLY USING CHANTIX TO QUIT Additional Social history: Time Spent with Patient Time Spent with Patient: <45 minutes Time was spent: preparing to see the patient(eg.review tests), referring, communicating with other health progressive care manager, indepentently interpreting results, counseling the patient and care coordination
--- NOTE | 2022-12-02 15:54 | PDOC.CMDIS ---
Date of service: 12/02/22 Time of Service: 15:55 LACE Index Scoring Tool Questions: Length of Stay (in days): 1 Was the patient admitted via the E.D.?: Yes Comorbidities: Chronic Pulmonary Disease E.D. Visits: 1 Answers: Total Score: 7 Risk of Readmission: Low Risk Care Management Discharge Plan Reason for Hospitalization: fall Discharge Plan: Ed will be discharged home with no new services. He will follow up with his PCP and plan of care as prescribed and transport with a friend. Patient/Family Education Needs: Review of discharge instructions, activity, limitations, follow up plan, discuss Ask Me Three
== END 2022-12-02 15:30 | disposition home or self-care (01) ==
LOC: ER 19:49 → MS 12-01 08:43 → ICU 12-01 11:40 → MS 12-02 09:49 → ICU 12-02 09:52
PROVIDERS: Nurse Practitioner Family; Student in an Organized Health Care Education/Training Program; Admitting Provider General Practice; Emergency Provider Physician Assistant; PCP Family Medicine; Visit Provider General Practice
DX: S06.6XAA Traumatic subarachnoid hemorrhage with loss of consciousness status unknown, initial encounter; S36.020A Minor contusion of spleen, initial encounter; S32.058A Other fracture of fifth lumbar vertebra, initial encounter for closed fracture; S22.011A Stable burst fracture of first thoracic vertebra, initial encounter for closed fracture; S22.021A Stable burst fracture of second thoracic vertebra, initial encounter for closed fracture; R50.9 Fever, unspecified; J44.9 Chronic obstructive pulmonary disease, unspecified; G47.33 Obstructive sleep apnea (adult) (pediatric); R25.1 Tremor, unspecified; Z79.899 Other long term (current) drug therapy; K59.00 Constipation, unspecified; R63.4 Abnormal weight loss; Z68.1 Body mass index [BMI] 19.9 or less, adult; E78.5 Hyperlipidemia, unspecified; D50.9 Iron deficiency anemia, unspecified; R13.10 Dysphagia, unspecified; G89.29 Other chronic pain; M54.50 Low back pain, unspecified; F17.210 Nicotine dependence, cigarettes, uncomplicated; W11.XXXA Fall on and from ladder, initial encounter; R05.8 Other specified cough
CPT/HCPCS: 36415; 74177; 80048; 80053; 83690; 86850; 86900; 86901; 87040; 93005; 99222; 99232; 70450; 71045; 71260; 72125; 81003; 83735; 84484; 85014; 85018; 85025; 87086; 93010; 94640; 94667; 94668; 99239; G0378; J0131; J3490

== ENCOUNTER 2022-12-08 02:49 | Emergency (ER) | payer OTHER, SELFPAY ==
--- NOTE | 2022-12-08 02:45 | DI.CT_ITS ---
Exam(s) CT HEAD CERV SPINE FACIAL WO EXAM: CT HEAD CERV SPINE FACIAL WO CLINICAL HISTORY: fall, hit right brow. TECHNIQUE: Imaging Protocol: Axial computed tomography images with coronal and sagittal reformatted images were created and reviewed COMPARISON: CT CT HEAD WO from 11/30/2022 FINDINGS: CT BRAIN: There are no skull fractures nor fluid in the visualized paranasal sinuses. There is no evidence of intracranial hemorrhage, mass effect, or shift of midline structures. There are no extra-axial fluid collections. The ventricles are not enlarged or shifted and there is no blo od within the ventricular system nor within the basal cisterns. CT MAXILLOFACIAL BONES: There is a prominent laceration in the right supraorbital region. No evidence of orbital blowout fra cture. There is, however, nasal bone fracture evident, age indeterminate. No evidence of nasal sept um fracture.. No fluid in the paranasal sinuses. Nasal spine appears intact. No evidence of orbita l blowout fracture. No mandible fracture. CT CERVICAL SPINE: There is no evidence of cervical fracture nor listhesis. However, there is multilevel chronic disc s pace narrowing from C3-4 down. No facet fractures. No facet malalignment. No significant preverteb ral soft tissue swelling. No facet malalignment evident. No significant osseous lesions evident. There are mild wedge fractures of the T1 and T2 vertebral bodies which appear acute. These fractures do not involve posterior osseous elements. IMPRESSION: No acute intracranial findings. Nasal bone fracture, age indeterminate. T1 and T2 compression fractures. No listhesis at this level. No facet malalignment.. No involvemen t of posterior osseous elements. RADIATION DOSE DELIVERED: 1,361.67mGy.cm Total DLP DATA REPOSITORY: All CT scans at this facility are submitted to the National Radiology Data Registry (NRDR) Dose Index Registry (DIR) with the [employer] (A[employer]). RADIATION OPTIMIZATION: All CT scans at this facility use at least one of these dose optimization te chniques: automated exposure control; mA and/or kV adjustment per patient size (includes targeted exa ms where dose is matched to clinical indication); or iterative reconstruction.
[2022-12-08 02:56] VITALS: BP 111/53; PULSE 77; RESP 18; TEMP 36.7; O2SAT 96
--- NOTE | 2022-12-08 02:59 | ED.GENADUL_ITS ---
Discharge Plan Disposition Patient Disposition: Home Condition: Good Discharge Details Clinical Impression: Laceration of brow without complication Primary Care Provider: Peter Boone ED Provider: Per Cullen Home Meds and New Rx's Prescriptions: No Action albuterol sulfate 90 mcg/actuation HFA aerosol inhaler 2 puff inhalation Q6H PRN (Reason: shortness of breath or wheezing) Qty: 8.5 12RF Trelegy Ellipta 100-62.5-25 mcg blister with device 1 inh inhalation DAILY Qty: 60 5RF propranolol 120 mg capsule,extended release 24 hr 120 mg PO DAILY cholecalciferol (vitamin D3) 50 mcg (2,000 unit) capsule 50 mcg PO DAILY primidone 250 mg tablet 300 mg PO TID Qty: 270 acetaminophen 500 mg Tablet 650 mg PO TID PRN PRNQty: 0 0RF Discharge Instructions Instructions: Care For Your Stitches (ED), Facial Laceration (ED) Additional Instructions: Please keep the area clean and dry. Monitor closely for any redness, drainage or discharge. For nonabsorbable sutures, please return in 7 to 10 days to have the wound reassessed and the sutures removed. If you come back to the emergency department here it will be free of charge for the suture removal. For long-term scar cosmesis, please make sure to avoid any sun to the area for the next year. Apply moisturizer or vitamin E to the area twice daily for the next 12 months for the best chance of wound/scar medication. Please take a daily multivitamin as well as this can help in wound healing. If you notice any worsening of your symptoms, or any new symptoms such as vomiting, diarrhea, fever, chills, shortness of breath, chest pain, numbness, weakness, or fainting , please return immediately to the emergency department for reevaluation. Please follow up with your primary care provider as soon as possible for reassessment and reevaluation. As always, it was a pleasure participating in your medical care today. Referrals: Peter Boone [Primary Care Provider] - Medical Decision Making 77-year-old male with a past medical history of COPD, and a recent fall from 10 feet up on a ladder 1 week ago at which point he developed a c ontusion of his spleen, a lumbar transverse process fracture, and a small subarachnoid bleed versus cerebral contusion, presents today for evaluation of fall. He got up out of bed at around 2 AM this morning, and unfortunately tripped while he was getting up to go look for a drink or medications. He fell and landed on his right brow. He denies any loss of consciousness. He states he recalls the event. He has been quite sore since his initial fall a week ago, but was still able to get up with assistance. He is not on any blood thinners. He denies any chest pain, new back pain, or abdominal pain. He states that his only pain is in his right brow where he hit. He denies any other complaints at this time. No other modifying factors. Physical exam demonstrates a 4 cm laceration over the right brow. No other evidence of trauma on the head neck or face or chest or abdomen. No other tenderness. We will get a CT scan of the head and face. 6 simple interrupted sutures were placed in the patient's right brow, as well as one subcutaneous suture for wound edge reapproximation. Patient tolerated this well. Tetanus was updated a few months ago. Pending CT scan results. 4:[address] scan results demonstrate evidence of mildly displaced nasal bone fracture, mild compression fracture of the superior endplate of T1 and T2 which is thought to be old and unchanged compared to prior imaging. There is also evidence of a questionable small foci of bifrontal subarachnoid hemorrhage. Differential also includes calcified vessel. We will reach out to [facility] for review of images with neurosurgery. On reassessment of the patient looks notably well, he is resting comfortably and shows no neurologic deficits. 5:16 AM Spoke with [facility] neurosurgery Dr. Ruffin, she recommends repeat CAT scan 6 hours after initial. She requests reconsultation with [facility] after CAT scan results. I did discuss this with the patient and he is quite frustrated and is asking to go home. However after long discussion with he and his daughter at bedside he has agreed to stay. We will continue to monitor. Patient will be signed out to my colleague Dr. Loja for repeat CAT scan at 9 AM. Patient on reassessment continues to demonstrate notable neurologic stability with no deficits or changes. Patient is requesting multiple times to go home. FINDINGS: Brain: Small, thin areas of curvilinear hyperdensity of the anterior bilateral frontal lobes following the gyral morphology (coronal head, DICOM series 6, images 9-11), suspicious for small bifrontal subarachnoid hemorrhage versus beam hardening from the adjacent calvarium. Right parietal linear hyperdense focus is no longer appreciated No midline shift or mass effect. Langford- white matter differentiation is preserved. Cerebral ventricles: No ventriculomegaly. Paranasal sinuses: Visualized sinuses are unremarkable. No fluid levels. Mastoid air cells: Visualized mastoid air cells are well aerated. Bones/joints: No acute fracture. Soft tissues: Unremarkable. IMPRESSION: Question small foci of bifrontal subarachnoid hemorrhage. FINDINGS: Orbital cavities: Orbits are normal. Globes are unremarkable. Bones/joints: Comminuted, mildly displaced nasal bone fractures. Edentulous mandible and maxilla. Paranasal sinuses: Normal. No air-fluid levels. Soft tissues: Soft tissue laceration overlying the right orbit. IMPRESSION: 1. Comminuted, mildly displaced nasal bone fractures. 2. Soft tissue laceration overlying the right orbit. FINDINGS: Bones/joints: There is increased conspicuity of the T1 and T2 compression fractu res with slight interval anterior vertebral height loss at T2. Craniocervical alignment is anatomic. Mild, degenerative retrolisthesis of C4 on C5. Mild multilevel cervical spondylosis, most pronounce d at C4-C5 and C5- C6. Lungs: Severe apical emphysema. Soft tissues: Unremarkable. IMPRESSION: Mild compression fractures of superior endplates of T1 and T2. THIS REPORT CONTAINS FINDINGS THAT MAY BE CRITICAL TO PATIENT CARE. The findings were verbally communicated via telephone conference at 4:21 AM EDT on 12/08/2022 with PER Peralta. The findings were acknowledged and understood. Thank you for allowing us to participate in the care of your patient. Dictated and Authenticated by: Sue Trivedi MD 12/08/2022 4:23 AM Eastern Time ([place] & [place]) HPI General Date/Time Provider Initiated Documentation: 12/08/22 02:57 . HPI Narrative: 77-year-old male with a past medical history of COPD, and a recent fall from 10 feet up on a ladder 1 week ago at which point he developed a contusion of his spleen, a lumbar transverse process fracture, and a small subarachnoid bleed versus cerebral contusion, presents today for evaluation of fall. He got up out of bed at around 2 AM this morning, and unfortunately tripped while he was getting up to go look for a drink or medications. He fell and landed on his right brow. He denies any loss of consciousness. He states he recalls the event. He has been quite sore since his initial fall a week ago, but was still able to get up with assistance. He is not on any blood thinners. He denies any chest pain, new back pain, or abdominal pain. He states that his only pain is in his right brow where he hit. He denies any other complaints at this time. No other modifying factors. Related Data Home Medications Medication Instructions Recorded Confirmed cholecalciferol (vitamin D3) 50 50 mcg PO DAILY 04/06/20 11/30/22 mcg (2,000 unit) capsule propranolol 120 mg capsule,24 120 mg PO DAILY 04/06/20 11/30/22 hr,extended release primidone 250 mg tablet 300 mg PO TID #270 tab-caps 05/23/20 11/30/22 albuterol sulfate 90 mcg/actuation 2 puff inhalation Q6H PRN 02/04/22 11/30/22 aerosol inhaler shortness of breath or wheezing #8.5 grams fluticasone fur. 100 mcg-umeclid 1 inh inhalation DAILY #60 ea 05/16/22 11/30/22 62.5 mcg-vilant 25 mcg inhalat.powder (Trelegy Ellipta) acetaminophen 500 mg tablet 650 mg PO TID PRN PRN #0 tabs 12/02/22 Previous Rx's Medication Instructions Recorded albuterol sulfate 90 mcg/actuation 2 puff inhalation Q6H PRN 02/04/22 aerosol inhaler shortness of breath or wheezing #8.5 grams fluticasone fur. 100 mcg-umeclid 1 inh inhalation DAILY #60 ea 05/16/22 62.5 mcg-vilant 25 mcg inhalat.powder (Trelegy Ellipta) acetaminophen 500 mg tablet 650 mg PO TID PRN PRN #0 tabs 12/02/22 Allergies Allergy/AdvReac Type Severity Reaction Status Date / Time aspirin AdvReac Intermediate GI UPSET Verified 11/30/22 18:15 General Stated Complaint: Fall/Non TraumaCriteria NAWAF: 4 Review of Systems All systems reviewed & are unremarkable except as noted in HPI and below PFSH All Active Problems (Updated 12/08/22 @ 04:03 by Per Cullen DO) Laceration of brow without complication (Acute) Minor contusion of spleen (Acute) Subarachnoid bleed (Acute) Lumbar transverse process fracture (Acute) Nicotine dependence, cigarettes, uncomplicated (Acute) Constipation (Acute) ROE and COPD overlap syndrome (Acute) Rib pain on right side (Acute) Fall as cause of accidental injury at home as place of occurrence (Acute) Anemia, iron deficiency (Acute) Weight loss, abnormal (Acute) Tubular adenoma (Acute 01/29/16) Mass of vallecula (Acute) Pharyngeal dysphagia (Acute) Aspiration into lower respiratory tract (Acute) Vocal cord dysfunction (Acute) Vocal cord paralysis (Acute) Ribs, multiple fractures (Acute 06/05/13) Ribs 7 through 9 Atelectasis (Acute 06/05/13) COPD (chronic obstructive pulmonary disease) (Chronic) Jun 24, 2012 PFT's with FEV1 60% predicted, severe obstrtuctive disease with no significatn bronchodilator response. Tobacco abuse (Chronic) Ongoing tobacco use, nicotiune replacement not helpful, Chntix helped in the past but could not afford. PFT's performed 07/03/12 with REV1 60% predicted, severe obstrructive disease with no significant bronchodilator response. Sleep apnea (Chronic) Treated with CPAP. Essential tremor (Chronic) Chronic back pain (Chronic) Weight loss (Acute) Dysphagia (Acute) Hyperlipidemia (Chronic) Medical History Chronic low back pain Cigarette smoker Colon polyps 01/08/19 w/ Dr Marya Stinson, [facility], tubular adenoma, repeat 3 yrs 01/29/16 w/ Dr. Aleyda Irizarry, 4 tubular adenoma's, repeat 3 years COPD (chronic obstructive pulmonary disease) Hearing loss History of broken collarbone right collarbone fx with hardware- per pt 6 years ago Polyuria Shoulder pain, left Sleep apnea Tremor Surgical History Hx of surgical procedure clavicle repair Hx of thumb surgery 1973. [address] in place Family History Mother Colon cancer Social History Smoking/Tobacco Use Status: Current every day Tobacco Type: cigarettes Tobacco: How many years used: 50 Smoking risk assessment performed?: Yes Alcohol Intake: never Drug use: Never Substance use type: does not use Details: QUIT SMOKING A MONTH AGO, CURRENTLY USING CHANTIX TO QUIT Do you feel safe at home: Yes (unable to ask privately) Do you feel safe in your relationship?: Yes Additional Social history: Exam Narrative Exam Narrative: 1.Const: Well-nourished, Well-developed, appearing stated age 2.Eyes: PERRL, no conjunctival injection, and symmetrical lids. 3.ENT: Patient does have a 4 cm laceration over his right brow. There is no evidence of raccoon eyes, faustin sign, CSF rhinorrhea, mastoid tenderness, cranial crepitus, hemotympanum, exophthalmos, or hyphema. Patient demonstrates intact dentition with no signs of tooth avulsion or fracture, no signs of jaw deformity, no evidence of a LeFort's fracture, with an intact palate, nose and orbital region. There is no evidence of a nasal septal hematoma. No proptosis. Jaw closes symmetrically. Airway is clear. 4.CVS: +S1/S2, No murmurs or gallops. Peripheral pulses 2+ and equal in all extremities. Brisk capillary refill in all extremities. 5.RESP: Unlabored respiratory effort. Clear to auscultation bilaterally. No wheezes rales or rhonchi 6.GI: Soft, Nontender/Nondistended, No hepatosplenomegaly. No guarding or rebound. 7.MSK: Normocephalic/Atraumatic, Extremities w/o deformity or ttp No cyanosis or clubbing, Normal movement of all extremities 8.Skin: Warm, Dry. No rashes or lesions. 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 Sensation grossly intact, no focal neurologic deficits. 10.Psych: (AAO) x3. Appropriate mood and affect Course Vital Signs Vital signs: Vital Signs Temperature 36.7 C 12/08/22 02:56 Pulse 77 12/08/22 02:56 Respiratory Rate 18 12/08/22 02:56 Blood Pressure 111/53 L 12/08/22 02:56 Pulse Oximetry 96 12/08/22 02:56 Temperature 36.7 C 12/08/22 02:56 Pulse 77 12/08/22 02:56 Respiratory Rate 18 12/08/22 02:56 Blood Pressure 111/53 L 12/08/22 02:56 Pulse Oximetry 96 12/08/22 02:56 Oxygen Delivery Method Room Air 12/08/22 02:56 Oxygen Flow Rate 0 12/08/22 02:56 Pain Level 4 12/08/22 02:56 Procedures Laceration Laceration 1: Site: face Side (If applicable): right Size (cm): 6 Description: linear Depth: simple, single layer Local Anesthetic: Lidocaine 1% and with Epi Amount of anesthesia used (mL): 5 Pre-repair: wound explored, irrigated extensively and deep structures intact Skin layer closed with: nylon Size (cm): 4-0 Number of sutures: 6 Technique: simple, interrupted Subcutaneous layer closed with: vicryl Size: 4-0 Number of sutures: 1 Technique: simple, interrupted
--- NOTE | 2022-12-08 04:24 | DI.VRAD_ITS ---
Addendum created by Sue Trivedi MD on 12/08/2022 4:35:54 AM EDT: THIS REPORT CONTAINS FINDINGS THAT MAY BE CRITICAL TO PATIENT CARE. The findings were verbally communicated via telephone conference at 4:21 AM EDT on 12/08/2022 with MARIANNA Peralta. The findings were acknowledged and understood. Initial report created on 12/08/2022 4:23:54 AM EDT: PROCEDURE INFORMATION: Exam: CT Head Without Contrast Exam date and time: 12/08/2022 3:12 AM Age: 77 years old Clinical indication: Other: Fall, hit right brow TECHNIQUE: Imaging protocol: Computed tomography of the head without contrast. Radiation optimization: All CT scans at this facility use at least one of these dose optimization techniques: automated exposure control; mA and/or kV adjustment per patient size (includes targeted exams where dose is matched to clinical indication); or iterative reconstruction. COMPARISON: CT HEAD WO 11/30/2022 9:10 PM FINDINGS: Brain: Small, thin areas of curvilinear hyperdensity of the anterior bilateral frontal lobes following the gyral morphology (coronal head, DICOM series 6, images 9-11), suspicious for small bifrontal subarachnoid hemorrhage versus beam hardening from the adjacent calvarium. Right parietal linear hyperdense focus is no longer appreciated No midline shift or mass effect. Langford-white matter differentiation is preserved. Cerebral ventricles: No ventriculomegaly. Paranasal sinuses: Visualized sinuses are unremarkable. No fluid levels. Mastoid air cells: Visualized mastoid air cells are well aerated. Bones/joints: No acute fracture. Soft tissues: Unremarkable. IMPRESSION: Question small foci of bifrontal subarachnoid hemorrhage. PROCEDURE INFORMATION: Exam: CT Maxillofacial Without Contrast Exam date and time: 12/08/2022 3:12 AM Age: 77 years old Clinical indication: Other: Fall, hit right brow TECHNIQUE: Imaging protocol: Computed tomography of the face without contrast. Radiation optimization: All CT scans at this facility use at least one of these dose optimization techniques: automated exposure control; mA and/or kV adjustment per patient size (includes targeted exams where dose is matched to clinical indication); or iterative reconstruction. COMPARISON: CT HEAD WO 11/30/2022 9:10 PM FINDINGS: Orbital cavities: Orbits are normal. Globes are unremarkable. Bones/joints: Comminuted, mildly displaced nasal bone fractures. Edentulous mandible and maxilla. Paranasal sinuses: Normal. No air-fluid levels. Soft tissues: Soft tissue laceration overlying the right orbit. IMPRESSION: 1. Comminuted, mildly displaced nasal bone fractures. 2. Soft tissue laceration overlying the right orbit. PROCEDURE INFORMATION: Exam: CT Cervical Spine Without Contrast Exam date and time: 12/08/2022 3:12 AM Age: 77 years old Clinical indication: Other: Fall, hit right brow TECHNIQUE: Imaging protocol: Computed tomography of the cervical spine without contrast. Radiation optimization: All CT scans at this facility use at least one of these dose optimization techniques: automated exposure control; mA and/or kV adjustment per patient size (includes targeted exams where dose is matched to clinical indication); or iterative reconstruction. COMPARISON: CT HEAD CERVICAL SPINE WO 11/30/2022 3:15 PM FINDINGS: Bones/joints: There is increased conspicuity of the T1 and T2 compression fractures with slight interval anterior vertebral height loss at T2. Craniocervical alignment is anatomic. Mild, degenerative retrolisthesis of C4 on C5. Mild multilevel cervical spondylosis, most pronounced at C4-C5 and C5-C6. Lungs: Severe apical emphysema. Soft tissues: Unremarkable. IMPRESSION: Mild compression fractures of superior endplates of T1 and T2. THIS REPORT CONTAINS FINDINGS THAT MAY BE CRITICAL TO PATIENT CARE. The findings were verbally communicated via telephone conference at 4:21 AM EDT on 12/08/2022 with MARIANNA Peralta. The findings were acknowledged and understood. Dictated and Authenticated by: Sue Trivedi MD. Ordering:KAREN Albarado MD
--- NOTE | 2022-12-08 07:45 | DI.CT_ITS ---
Exam(s) CT HEAD WO EXAM: CT HEAD WO CLINICAL HISTORY: recheck for bleed. TECHNIQUE: Imaging Protocol: Axial computed tomography images with coronal and sagittal reformatted images were created and reviewed COMPARISON: CT CT HEAD CERV SPINE FACIAL WO from 12/08/2022 FINDINGS: There are no skull fractures. Nasal bone fracture again noted. There is no fluid in the visualized paranasal sinuses. There is no evidence of intracranial hemorrhage, mass effect, or shift of midline structures. There are no extra-axial fluid collections. The ventricles are not enlarged or shifted and there is no blo od within the ventricular system nor within the basal cisterns. IMPRESSION: No acute intracranial findings on this noninfused CT scan of the brain. Nasal bone fracture again noted. RADIATION DOSE DELIVERED: 750.47mGy.cm Total DLP DATA REPOSITORY: All CT scans at this facility are submitted to the National Radiology Data Registry (NRDR) Dose Index Registry (DIR) with the [employer] ([employer]). RADIATION OPTIMIZATION: All CT scans at this facility use at least one of these dose optimization te chniques: automated exposure control; mA and/or kV adjustment per patient size (includes targeted exa ms where dose is matched to clinical indication); or iterative reconstruction.
--- NOTE | 2022-12-08 09:41 | DI.VRAD_ITS ---
PROCEDURE INFORMATION: Exam: CT Head Without Contrast Exam date and time: 12/08/2022 9:07 AM Age: 77 years old Clinical indication: Other: Recheck for bleed TECHNIQUE: Imaging protocol: Computed tomography of the head without contrast. Radiation optimization: All CT scans at this facility use at least one of these dose optimization techniques: automated exposure control; mA and/or kV adjustment per patient size (includes targeted exams where dose is matched to clinical indication); or iterative reconstruction. COMPARISON: CT HEAD CERV SPINE FACIAL WO 12/08/2022 3:12 AM FINDINGS: Brain: Regions of the anterior bilateral frontal lobes previously demonstrating curvilinear hyperdensity are no longer, suggesting artifact. Multifocal subcortical and periventricular white matter hypodensities, likely related to chronic cerebral microangiopathy. Moderate global parenchymal volume loss. No mass effect. Cerebral ventricles: Mild ventriculomegaly. Paranasal sinuses: No fluid levels. Mastoid air cells: Visualized mastoid air cells are well aerated. Bones/joints: Calvarium is intact Soft tissues: Laceration over the right orbit. IMPRESSION: No acute intracranial hemorrhage. Dictated and Authenticated by: Sue Trivedi MD. Ordering:KAREN Albarado MD
--- NOTE | 2022-12-08 09:52 | W.EDPROG ---
Date of service: 12/08/22 Time of Service: 09:52 Medical Decision Making pt stable requesting d/c, repeat ct shows no acute findings, notified [place] at [facility] [place]. HE is stable for d/c, will f/u with pcp and return precautions given Imaging Data Radiologic Study: Attestation: I personally reviewed and interpreted this imaging study as follows: Imaging: CT Scan Radiologist's impression: PROCEDURE INFORMATION: Exam: CT Head Without Contrast Exam date and time: 12/08/2022 9:07 AM Age: 77 years old Clinical indication: Other: Recheck for bleed TECHNIQUE: Imaging protocol: Computed tomography of the head without contrast. Radiation optimization: All CT scans at this facility use at least one of these dose optimization techniques: automated exposure control; mA and/or kV adjustment per patient size (includes targeted exams where dose is matched to clinical indication); or iterative reconstruction. COMPARISON: CT HEAD CERV SPINE FACIAL WO 12/08/2022 3:12 AM FINDINGS: Brain: Regions of the anterior bilateral frontal lobes previously demonstrating curvilinear hyperdensity are no longer, suggesting artifact. Multifocal subcortical and periventricular white matter hypodensities, likely related to chronic cerebral microangiopathy. Moderate global parenchymal volume loss. No mass effect. Cerebral ventricles: Mild ventriculomegaly. Paranasal sinuses: No fluid levels. Mastoid air cells: Visualized mastoid air cells are well aerated. Bones/joints: Calvarium is intact Soft tissues: Laceration over the right orbit. IMPRESSION: No acute intracranial hemorrhage. Sign Out Sign Out Data: Sign Out Comment: Fall, right brow laceration. Laceration has been sutured. Initial CT scan shows evidence concerning for small foci of bifrontal subarachnoid hemorrhage versus streaking artifact. [facility] neurosurgery recommends repeat CT scan of the head at 9 AM and reconsult after results return. Last updated by Per Cullen DO at 12/08/22 05:18 Discharge Plan Disposition Patient Disposition: Home Condition: Good Discharge Details Clinical Impression: Laceration of brow without complication Primary Care Provider: Peter Boone ED Provider: Theodore Loja Home Meds and New Rx's Prescriptions: Continued albuterol sulfate 90 mcg/actuation HFA aerosol inhaler 2 puff inhalation Q6H PRN (Reason: shortness of breath or wheezing) Qty: 8.5 12RF Trelegy Ellipta 100-62.5-25 mcg blister with device 1 inh inhalation DAILY Qty: 60 5RF propranolol 120 mg capsule,extended release 24 hr 120 mg PO DAILY cholecalciferol (vitamin D3) 50 mcg (2,000 unit) capsule 50 mcg PO DAILY primidone 250 mg tablet 300 mg PO TID Qty: 270 acetaminophen 500 mg Tablet 650 mg PO TID PRN PRNQty: 0 0RF Discharge Instructions Instructions: Care For Your Stitches (ED), Facial Laceration (ED) Additional Instructions: Please keep the area clean and dry. Monitor closely for any redness, drainage or discharge. For nonabsorbable sutures, please return in 7 to 10 days to have the wound reassessed and the sutures removed. If you come back to the emergency department here it will be free of charge for the suture removal. For long-term scar cosmesis, please make sure to avoid any sun to the area for the next year. Apply moisturizer or vitamin E to the area twice daily for the next 12 months for the best chance of wound/scar medication. Please take a daily multivitamin as well as this can help in wound healing. If you notice any worsening of your symptoms, or any new symptoms such as vomiting, diarrhea, fever, chills, shortness of breath, chest pain, numbness, weakness, or fainting , please return immediately to the emergency department for reevaluation. Please follow up with your primary care provider as soon as possible for reassessment and reevaluation. As always, it was a pleasure participating in your medical care today. Referrals: Peter Boone [Primary Care Provider] -
== END 2022-12-08 10:25 | disposition home or self-care (01) ==
PROVIDERS: Emergency Provider Emergency Medicine; PCP Family Medicine
DX: S01.111A Laceration without foreign body of right eyelid and periocular area, initial encounter (principal); W01.0XXA Fall on same level from slipping, tripping and stumbling without subsequent striking against object, initial encounter
CPT/HCPCS: 12014; 99284; 70450; 70486; 72125

== ENCOUNTER 2022-12-08 18:36 | Inpatient (IN) | payer OTHER, SELFPAY ==
[2022-12-08] VITALS (42 sets, daily range): BP systolic 85–132; BP diastolic 54–75; PULSE 88–101; RESP 18–27; TEMP 36.3–36.8; O2SAT 93–98
--- NOTE | 2022-12-08 18:30 | DI.CT_ITS ---
Exam(s) CT HEAD WO EXAM: CT HEAD WO CLINICAL HISTORY: altered mental status. TECHNIQUE: Imaging Protocol: Axial computed tomography images with coronal and sagittal reformatted images were created and reviewed COMPARISON: CT CT HEAD WO from 12/08/2022 FINDINGS: Again noted is a right supraorbital hematoma/laceration. There is no fluid in the visualized paranas al sinuses.zx There is a tiny 2 millimeter thick right sided subdural collection. No subjacent mass effect. No sh ift of midline structures.. No blood within the ventricular system nor within the basal cisterns. IMPRESSION: Thin right frontal region subdural hematoma maximum thickness 2-3 mm. No significant compression of the subjacent brain tissue. No overlying skull fracture. RADIATION DOSE DELIVERED: 740.35mGy.cm Total DLP DATA REPOSITORY: All CT scans at this facility are submitted to the National Radiology Data Registry (NRDR) Dose Index Registry (DIR) with the [employer] (ACR). RADIATION OPTIMIZATION: All CT scans at this facility use at least one of these dose optimization te chniques: automated exposure control; mA and/or kV adjustment per patient size (includes targeted exa ms where dose is matched to clinical indication); or iterative reconstruction.
--- NOTE | 2022-12-08 18:30 | RT.EKG_ITS ---
APPROVED REPORT Exam: Resting ECG Reason for Exam: decreased loc Patient Location: E HR:97 bpm ECG Measurements Heart Rate 97 AXIS OH 166 P 89 QRSd 93 QRS 61 QT 320 T 82 QTc 406 Conclusion Sinus rhythm...normal P axis, V-rate 60- 99 Low voltage, extremity leads...all extremity leads <0.5mV
--- NOTE | 2022-12-08 18:43 | W.ED.GENAD ---
Discharge Plan Disposition Condition: Stable Discharge Details Chief Complaint: AMS/LOC Clinical Impression: Lethargy, Fall Primary Care Provider: Peter Boone ED Provider: Theodore Loja Home Meds and New Rx's Prescriptions: No Action albuterol sulfate 90 mcg/actuation HFA aerosol inhaler 2 puff inhalation Q6H PRN (Reason: shortness of breath or wheezing) Qty: 8.5 12RF Trelegy Ellipta 100-62.5-25 mcg blister with device 1 inh inhalation DAILY Qty: 60 5RF propranolol 120 mg capsule,extended release 24 hr 120 mg PO DAILY cholecalciferol (vitamin D3) 50 mcg (2,000 unit) capsule 50 mcg PO DAILY primidone 250 mg tablet 300 mg PO TID Qty: 270 acetaminophen 500 mg Tablet 650 mg PO TID PRN PRNQty: 0 0RF Medical Decision Making 77 yo male who earlier this month fell off a ladder and was admitted with splenic contusion and thoracic transverse fractures, who had a fall this morning and had a lac superior to the right orbit sutured and had two cat scans (first head quesiton small subarachnoid vs artifact and subsequent ct showing no acute findings), who has a hx of copd, comes in with ems with general malaise. He apparently went home with his daughter earlier and was able to use his walker but since being home has not been able to get out of bed due to weakness. HE has not had any recurrent falls. Daughter reports that he has been sleeping and more difficulty to arouse. EMS reported a temp of 101 en route but here is afebrile. He is oriented to name and place but not time. HE is moving his extremities equally though is weak in all extremities. He is intermittently coughing and on lung exam has rhonchi in all lung [place]. His symptoms could be form a concussion but given reported fever with ems and lethargy will proceed with cbc, cmp, procalcitonin, ua, chest xray and repeat his head ct. Given his lung exam will also treat with a duoneb and solumedrol. hemoglobin decreased to 9.9 from 12 a week ago, given the recent splenic injury will obtain ct abdomen/pelvis to evaluate for possible recurrent injury to the spleen given fall earlier and also obtain ct of the chest to evaluate for infiltrate vs pe. Pt will be signed out to oncoming provider pending labs, imaging results and reassessment. Differential Diagnosis Differential Diagnosis: copd, pneumonia, uti Medical Records Medical records reviewed: Yes I reviewed the patient's medical records. Lab Data Lab results reviewed: Yes I reviewed the patient's lab results. ECG Data Attestation: I personally reviewed and interpreted this ECG (s) as follows: Prior ECG tracings: available for review Interpretation: sinus rhythm, rate of 97, pr 166, no acute ischemic findings HPI General Mode of arrival: EMS. Date/Time Provider Initiated Documentation: 12/08/22 18:37. Information obtained by: patient and family. History of Present Illness 77 year old M presents to the emergency department with the chief complaint of weakness, described as moderate, and it has been constant. No relieving factors improve symptom(s), No exacerbating factors reported . Patient notes cough; denies nausea/vomiting. Patient did receive the following treatments prior to arrival, none Related Data Home Medications Medication Instructions Recorded Confirmed cholecalciferol (vitamin D3) 50 50 mcg PO DAILY 04/06/20 12/08/22 mcg (2,000 unit) capsule propranolol 120 mg capsule,24 120 mg PO DAILY 04/06/20 12/08/22 hr,extended release primidone 250 mg tablet 300 mg PO TID #270 tab-caps 05/23/20 12/08/22 albuterol sulfate 90 mcg/actuation 2 puff inhalation Q6H PRN 02/04/22 12/08/22 aerosol inhaler shortness of breath or wheezing #8.5 grams fluticasone fur. 100 mcg-umeclid 1 inh inhalation DAILY #60 ea 05/16/22 12/08/22 62.5 mcg-vilant 25 mcg inhalat.powder (Trelegy Ellipta) acetaminophen 500 mg tablet 650 mg PO TID PRN PRN #0 tabs 12/02/22 12/08/22 Previous Rx's Medication Instructions Recorded albuterol sulfate 90 mcg/actuation 2 puff inhalation Q6H PRN 02/04/22 aerosol inhaler shortness of breath or wheezing #8.5 grams fluticasone fur. 100 mcg-umeclid 1 inh inhalation DAILY #60 ea 05/16/22 62.5 mcg-vilant 25 mcg inhalat.powder (Trelegy Ellipta) acetaminophen 500 mg tablet 650 mg PO TID PRN PRN #0 tabs 12/02/22 Allergies Allergy/AdvReac Type Severity Reaction Status Date / Time aspirin AdvReac Intermediate GI UPSET Verified 11/30/22 18:15 General Stated Complaint: AMS/LOC NAWAF: 3 Review of Systems All systems reviewed & are unremarkable except as noted in HPI and below Constitutional Constitutional: Denies chills and Denies weakness Cardiovascular Cardiovascular: Denies chest pain and Denies dyspnea Respiratory Respiratory: Denies dyspnea Gastrointestinal Gastrointestinal: Denies abdominal pain, Denies nausea and Denies vomiting Musculoskeletal Musculoskeletal: Denies joint swelling Neurologic Neurologic: Denies weakness PFS All Active Problems (Updated 12/08/22 @ 19:14 by Theodore Loja MD) Laceration of brow without complication (Acute) Lethargy (Acute) Fall (Acute) Minor contusion of spleen (Acute) Subarachnoid bleed (Acute) Lumbar transverse process fracture (Acute) Nicotine dependence, cigarettes, uncomplicated (Acute) Constipation (Acute) ROE and COPD overlap syndrome (Acute) Rib pain on right side (Acute) Fall as cause of accidental injury at home as place of occurrence (Acute) Anemia, iron deficiency (Acute) Weight loss, abnormal (Acute) Tubular adenoma (Acute 01/29/16) Mass of vallecula (Acute) Pharyngeal dysphagia (Acute) Aspiration into lower respiratory tract (Acute) Vocal cord dysfunction (Acute) Vocal cord paralysis (Acute) Ribs, multiple fractures (Acute 06/05/13) Ribs 7 through 9 Atelectasis (Acute 06/05/13) COPD (chronic obstructive pulmonary disease) (Chronic) Jun 24, 2012 PFT's with FEV1 60% predicted, severe obstrtuctive disease with no significatn bronchodilator response. Tobacco abuse (Chronic) Ongoing tobacco use, nicotiune replacement not helpful, Chntix helped in the past but could not afford. PFT's performed 07/03/12 with REV1 60% predicted, severe obstrructive disease with no significant bronchodilator response. Sleep apnea (Chronic) Treated with CPAP. Essential tremor (Chronic) Chronic back pain (Chronic) Weight loss (Acute) Dysphagia (Acute) Hyperlipidemia (Chronic) Medical History Chronic low back pain Cigarette smoker Colon polyps 01/08/19 w/ Dr Marya Stinson, [facility], tubular adenoma, repeat 3 yrs 01/29/16 w/ Dr. Aleyda Irizarry, 4 tubular adenoma's, repeat 3 years COPD (chronic obstructive pulmonary disease) Hearing loss History of broken collarbone right collarbone fx with hardware- per pt 6 years ago Polyuria Shoulder pain, left Sleep apnea Tremor Surgical History Hx of surgical procedure clavicle repair Hx of thumb surgery 1973. [address] in place Family History Mother Colon cancer Social History Smoking/Tobacco Use Status: Former Tobacco Use Tobacco: How many years used: 50 Smoking risk assessment performed?: Yes Alcohol Intake: never Drug use: Never Substance use type: does not use Details: QUIT SMOKING A MONTH AGO, CURRENTLY USING CHANTIX TO QUIT Do you feel safe at home: Yes (unable to ask privately) Do you feel safe in your relationship?: Yes Additional Social history: Exam Const General: no acute distress Orientation: alert HENUT Head: no palpable skull fracture Ears: external ears normal General nose exam: external nose normal Mouth: moist mucous membranes Eyes General: appearance normal, both eyes and all related structures Neck Neck: normal visual inspection Resp Auscultation: rhonchi Cardio Jugular venous pressure: no JVD Rate: regular rate Heart Sounds: no murmurs GI Palpation: soft and nontender Skin General skin exam: no rashes or lesions noted Neuro General: patient alert Extrem General: normal to inspection Psych Mental Status: mental status grossly normal Course Vital Signs Vital signs: Vital Signs Temperature 36.8 C 12/08/22 18:29 Pulse 99 H 12/08/22 18:29 Respiratory Rate 18 12/08/22 18:29 Blood Pressure 132/71 12/08/22 18:29 Pulse Oximetry 98 12/08/22 18:29 Temperature 36.8 C 12/08/22 18:29 Pulse 99 H 12/08/22 18:29 Respiratory Rate 18 12/08/22 18:29 Respiratory Effort Normal, Non-Labored 12/08/22 18:36 Blood Pressure 132/71 12/08/22 18:29 Blood Pressure Position Supine 12/08/22 18:29 Pulse Oximetry 98 12/08/22 18:29 Oxygen Delivery Method Room Air 12/08/22 18:29 Oxygen Flow Rate 0 12/08/22 18:29 Lab/Test Results Lab/Test Results: 12/08/22 18:30 Blood Blood Culture - Pending 12/08/22 18:30 Blood Blood Culture - Pending Sign Out Sign Out Data: Sign Out Comment: fell earlier, had the two cat scans second of which was unremarkable. Since being home lethargic and not able to get out of bed. EMS reported a temp of 101, afebrile here. Lungs rhonchorous. Pending labs, repeat ct head, xray and also reassessment after solumedrol and duoneb. Suspect partially due to concussion Last updated by Theodore Loja MD at 12/08/22 19:05
--- NOTE | 2022-12-08 19:00 | DI.CT_ITS ---
Exam(s) CT CHEST PE ABD PELVIS W EXAM: CT CHEST PE ABD PELVIS W CLINICAL HISTORY: lethargy, anemia, ?splenic laceration, ?pneumonia. TECHNIQUE: Imaging Protocol: Axial CT angiography was performed with multi-slice acquisition and m ulti-planar and/or 3D reconstructions. CONTRAST MATERIAL: Intravenous: Omnipaque 350 Contrast volume:100 ml Oral: None COMPARISON: CT CT CHEST/ABD/PEL W from 11/30/2022 FINDINGS: CHEST: PULMONARY ARTERIES: There are no intra-arterial filling defects to suggest the presence of acute pulm onary emboli. LUNGS: Mild infiltrate in the left lower lobe posterior basal segment. No other areas of infiltrate. Small unilateral left pleural effusion.. Opposite-right lung is clear. No significant focal findi ngs in the trachea and mainstem bronchi. MEDIASTINUM: There is no hilar nor mediastinal adenopathy. Visualized thyroid unremarkable. CARDIAC: Heart size is normal. There is no pericardial effusion. There is no significant shift of t he interventricular septum.Caliber of the thoracic aorta is within normal limits. OSSEOUS: No fractures of thoracic vertebrae nor rib fractures evident.. ABDOMEN: LIVER: No evidence of a patent laceration nor subcapsular hematoma. No focal hepatic lesions. GALLBLADDER/BILIARY: Large gallstone noted in the gallbladder lumen which is level aided and exhibits a diameter of 2.7 cm. Hyperdense bile is seen in the gallbladder fundus above this level. No peric holecystic fluid. CBD not dilated. PANCREAS: No evidence of pancreatic mass nor dilatation of the pancreatic duct. SPLEEN: Prominent splenic laceration with perisplenic fluid-hematoma. Splenic and portal veins are p atent. No thrombosis. ADRENALS: There are no significant adrenal masses. KIDNEYS:Large cysts in the left kidney. Largest measures 9 by 8 cm. No solid renal masses. There i s a small nonobstructive calculus in lower pole calyx of the right kidney measuring 3 millimeters. N o solid renal masses.. ABDOMINAL AORTA: There is mild prominence of the inferior abdominal aorta at and below the JAUN level where it measures 2.5 cm. There is moderate atherosclerotic disease of the abdominal aorta and iliac arteries. No occlusion. LYMPH NODES: There is no retroperitoneal or para-aortic adenopathy. ABDOMINAL WALL/GI: No evidence of significant anterior abdominal wall hernia. No bowel obstruction. PELVIS: There is prominent amount of uniform hyperdense fluid-blood in the dependent aspect of the pelvis. T his is most probably related to the splenic laceration. LYMPH NODES: There is no intrapelvic nor inguinal adenopathy. GI: Hyperdense material in the appendix but no evidence of acute appendicitis. Also no evidence of a cute diverticulitis.No evidence of sigmoid diverticulitis. URINARY BLADDER: There is a calculus in the dependent wall of the urinary bladder. Measures 6 x 5 mm . REPRODUCTIVE: Prostate mildly enlarged. OSSEOUS: There are fractures of the right transverse process is of L 3 and L4 and there is a fracture of the transverse process of L5 left-side. No thoracic and lumbar spine compression fractures. IMPRESSION: 1. There is a high-grade laceration of the spleen with perisplenic fluid and hyperdense fluid-blood i n the dependent aspect of the pelvis. There are no obvious rib fractures but there are fractures of the right transverse process is of L3 and L4 and of the left transverse process fracture of L5. No o ther fractures identified. 2. Small amount of infiltrate in the overlying left lower lobe. No prominent left pleural effusion n or other significant pulmonary findings. 3. No evidence of hepatic laceration nor renal injuries. 4. Cholelithiasis. Large lamellated gallstone with hyperdense bile in the gallbladder fundus above t his level. CBD not dilated. 5. There is atherosclerotic involvement of the abdominal aorta and iliac arteries. No occlusions. N o large aneurysms. RADIATION DOSE DELIVERED: 1,117.09mGy.cm Total DLP DATA REPOSITORY: All CT scans at this facility are submitted to the National Radiology Data Registry (NRDR) Dose Index Registry (DIR) with the [employer] (ACR). RADIATION OPTIMIZATION: All CT scans at this facility use at least one of these dose optimization te chniques: automated exposure control; mA and/or kV adjustment per patient size (includes targeted exa ms where dose is matched to clinical indication); or iterative reconstruction.
[2022-12-08 19:02] LABS: Lactate 0.8 mmol/L (0.6-1.4)
[2022-12-08 19:04] LABS: Abs Immature Grans 0.04 10^3/uL (0.0-0.06); Absolute Basophil Count 0.03 10^3/uL (0.0-0.2); Absolute Eosinophil Count 0.02 10^3/uL (0.0-0.7); Absolute Lymphocyte Count 0.23 10^3/uL (1.2-3.4); Absolute Monocyte Count 0.68 10^3/uL (0.1-0.8); Absolute Neutrophil Count 6.94 10^3/uL (1.2-6.7); Basophils % 0.4; Eosinophils % 0.3; HCT 29.2 % (40.0-50.0); HGB 9.9 g/dL (13.5-17.5); Immature Grans % 0.5; Lymphocytes % 2.9; MCH 29.4 pg (27.0-33.0); MCHC 33.9 % (32.0-36.0); MCV 87 fL (80-95); Monocytes % 8.6; Neutrophils % 87.3; Platelet Count 340 10^3/uL (130-400); RBC 3.37 10^6/uL (4.36-5.78); RDW 16.8 % (11.8-14.1); RDW-SD 49.5 fL; WBC 7.94 10^3/uL (4.4-10.8)
[2022-12-08] MEDS: methylPREDNISolone SUCC 125 MG VIAL IVP (19:06)
[2022-12-08] MEDS: Normal Saline 1,000 ML 1000 ML IV (19:07)
[2022-12-08] MEDS: Albuterol/Ipratropium 3 ML UPD VIAL UPD (19:07)
[2022-12-08 19:19] LABS: Bilirubin Small (Negative); Blood Trace-intact (Negative); Clarity Clear (Clear); Glucose Negative (Negative); Ketones Negative (Negative); Leukocyte Esterase Negative (Negative); Nitrite Negative (Negative)
[2022-12-08 19:25] LABS: Troponin I < 50 ng/L (<or=60)
[2022-12-08 19:28] LABS: Bacteria Rare HPF (Negative); C & S Indicated? No; Casts 0-2 Hyaline LPF (Negative); Crystals Negative HPF (Negative); Epithelial Cells Rare HPF (Negative); Mucus Negative (Negative); WBC Negative HPF (0-5)
[2022-12-08] MEDS: Normal Saline - Diluent 50 ML VIAL IJ (19:30)
[2022-12-08 19:31] LABS: ALT 26 U/L (16-63); AST 27 U/L (15-37); Albumin 2.7 g/dL (3.4-5.0); Alkaline Phosphatase 112 U/L (46-116); Anion Gap 9.3 mmol/L (3-11); BUN 25 mg/dL (7-18); Bilirubin, Total 0.7 mg/dL (0.2-1.0); CO2 26.7 mmol/L (21.0-32.0); Chloride 102 mmol/L (98-107); Estimated GFR 78.49 (mL/min/1.73m2); Glucose 141 mg/dL (74-106); Magnesium 1.6 mg/dL (1.8-2.4); Potassium 4.4 mmol/L (3.5-5.1); Sodium 138 mmol/L (136-145); TSH (W/Ref FT4) 1.82 uIU/mL (0.36-3.74); Total Protein 7.7 g/dL (6.4-8.2)
[2022-12-08] MEDS: Omnipaque 350 MG/ML 100 ML BTL IJ (19:31)
[2022-12-08] MEDS: Normal Saline Flush 10 ML SYR IVP (19:31)
[2022-12-08 19:40] LABS: Procalcitonin < 0.1 ng/mL
[2022-12-08 19:43] LABS: Influenza A PCR Negative (Negative); Influenza B PCR Negative (Negative); RSV PCR Negative (Negative)
[2022-12-08 19:53] LABS: COVID-19 PCR Positive (Negative); Source Nasopharynx
--- NOTE | 2022-12-08 20:13 | DI.VRAD_ITS ---
Addendum created by Maxi Rojas MD on 12/08/2022 8:19:34 PM EDT: This case was discussed personally with SHELIA Gifford at 8:19 PM EDT on 12/08/2022. Initial report created on 12/08/2022 8:13:22 PM EDT: PROCEDURE INFORMATION: Exam: CT Head Without Contrast Exam date and time: 12/08/2022 7:34 PM Age: 77 years old Clinical indication: Altered mental status/memory loss; Confusion or disorientation; Patient HX: AMS TECHNIQUE: Imaging protocol: Computed tomography of the head without contrast. Radiation optimization: All CT scans at this facility use at least one of these dose optimization techniques: automated exposure control; mA and/or kV adjustment per patient size (includes targeted exams where dose is matched to clinical indication); or iterative reconstruction. COMPARISON: CT HEAD WO 12/08/2022 9:07 AM, CT head December 08, 2022 3:14 a.m. FINDINGS: Brain: There is a small acute right frontal subdural hematoma with a maximum thickness of 3 mm, best demonstrated by image 220 of series 8. There is no gross associated mass effect upon the adjacent brain. There is no midline shift. The blair white matter differentiation appears preserved. There is symmetric parenchymal volume loss. Cerebral ventricles: The ventricular system and basilar cisterns appear appropriate in size and configuration. Paranasal sinuses: The paranasal sinuses appear well aerated. No air-fluid levels are seen. Mastoid air cells: The mastoid air cells appear well-aerated. Auditory system: The middle ear cavities appear clear. Orbital cavities: The globes and intraorbital structures appear grossly intact. Bones/joints: The bony calvarium appears intact. No depressed skull fracture is seen. There are old bilateral nasal bone fractures with rightward deviation of the nose and mild undulation of the nasal septum. Soft tissues: There is a right frontal scalp contusion with an associated laceration in the supraorbital region. IMPRESSION: Small acute right frontal subdural hematoma with a maximum thickness of 3 mm, stable compared with prior exams from earlier in the day. No gross associated mass effect. No acute skull fracture. Dictated and Authenticated by: Maxi Rojas MD. Ordering:SHAMA Jaimes MD
[2022-12-08] MEDS: MAGNESIUM SULFATE 2 GM/50 ML BAG IVPB (20:44)
--- NOTE | 2022-12-08 21:04 | DI.VRAD_ITS ---
Addendum created by Bon López MD on 12/08/2022 9:05:36 PM EDT: THIS REPORT CONTAINS FINDINGS THAT MAY BE CRITICAL TO PATIENT CARE. The findings were verbally communicated via telephone conference with Dr. Cullen at 9:05 PM EDT on 12/08/2022. The findings were acknowledged and understood. Initial report created on 12/08/2022 9:04:04 PM EDT: PROCEDURE INFORMATION: Exam: CTA Chest With Contrast CTA Abdomen With Contrast Exam date and time: 12/08/2022 7:41 PM Age: 77 years old Clinical indication: Other: Lethargy, anemia, ? splenic laceration, ? pneumonia; Shortness of breath; Prior surgery; Surgery date: 6+ months; Surgery type: Clavicle TECHNIQUE: Imaging protocol: Computed tomographic angiography of the chest with contrast. Exam focused on the arteries. Computed tomographic angiography of the abdomen with contrast. Exam focused on the arteries. 3D rendering (Not supervised by radiologist): MIP and/or 3D reconstructed images were created by the technologist. Radiation optimization: All CT scans at this facility use at least one of these dose optimization techniques: automated exposure control; mA and/or kV adjustment per patient size (includes targeted exams where dose is matched to clinical indication); or iterative reconstruction. Contrast material: OMNIPAQUE 350; Contrast volume: 100 ml; Contrast route: INTRAVENOUS (IV); COMPARISON: CT CHEST/ABD/PEL W 11/30/2022 3:21 PM FINDINGS: VASCULATURE: Pulmonary arteries: The pulmonary arteries are not enlarged. There is no evidence of filling defects within the pulmonary arterial circulation to suggest pulmonary embolism. Great vessels off aortic arch: Moderate atherosclerosis of the great vessels. Aorta: The aorta demonstrates moderate atherosclerotic calcification. Moderate atherosclerosis of the abdominal aorta present. Mild focal ectasia of the infrarenal abdominal aorta measuring 2.3 cm without definitive aneurysmal dilatation. Celiac trunk and mesenteric arteries: [id number] atherosclerosis of the mesenteric arteries present. No evidence of aneurysmal dilatation or dissection. Renal arteries: There is a mild approximately 20-30% stenosis of the left renal artery. Mild atherosclerosis right renal artery no evidence of flow-limiting stenoses. Right iliac arteries: Moderate atherosclerosis of the right common iliac artery. Moderate atherosclerosis of the right internal and external iliac arteries. The right common iliac artery, right internal iliac artery and right external iliac arteries are widely patent without evidence of significant occlusive or aneurysmal disease. Right femoral/popliteal arteries: Mild atherosclerosis of the right common femoral deep and superficial femoral arteries. The right common femoral artery is widely patent without evidence of significant occlusive or aneurysmal disease. The proximal right deep and superficial femoral arteries are widely patent without evidence of significant occlusive or aneurysmal disease. Left iliac arteries: Moderate atherosclerosis of the left common iliac artery. Moderate atherosclerosis of the left external iliac and left internal iliac arteries. The left common iliac artery, left internal iliac artery and left external iliac arteries are widely patent without evidence of significant occlusive or aneurysmal disease. Left femoral/popliteal arteries: The left common femoral artery is widely patent without evidence of significant occlusive or aneurysmal disease. The proximal left deep and superficial femoral arteries are widely patent without evidence of significant occlusive or aneurysmal disease. CHEST: Lungs: Severe centrilobular emphysematous changes are present. There is focal consolidation within the left lower lobe of the lung consider pulmonary contusion. Pleural spaces: There is no evidence of pneumothorax. There is a small left pleural effusion present. Heart: The right ventricular to left ventricular ratio is normal measuring 0.8. Coronary arteries: There is moderate atherosclerotic calcification of the coronary arteries. ABDOMEN AND PELVIS: Liver: There are no focal liver lesions present. Gallbladder and bile ducts: There are calcified gallstones present within the gallbladder lumen. There is mild thickening of the gallbladder wall. There is small amount of pericholecystic fluid and possible thickening of the gallbladder wall. Consider calculus cholecystitis. Possible small amount high attenuation fluid within the gallbladder lumen. Consider hemorrhage within the gallbladder lumen. Pancreas: No mass. No ductal dilation. Spleen: There is of severe laceration of the spleen with a large subcapsular hematoma there is mixed attenuation the perisplenic fluid present this is consistent with a grade 3 to grade 4 laceration of the spleen. Adrenal glands: Unremarkable. No mass. Kidneys and ureters: There are large simple appearing cysts seen within the left kidney the largest measuring approximately 8.4 cm. No follow-up indicated. No evidence of left hydronephrosis or left renal calculi. There is a 2 mm inferior pole right renal calculus present. This is nonobstructing. There are multiple sub cm cysts seen within the right kidney. No follow-up indicated. Stomach and bowel: Possible mild thickening of the proximal duodenal wall consider hematoma.. No obstruction. No mucosal thickening. Intraperitoneal space: There is a large attenuation fluid collection present within the pelvis measuring 7.1 x 8.1 x 4.4 cm consistent with a large amount of free peritoneal hemorrhage. No evidence of free air within the abdomen. Urinary bladder: The bladder is normal. There is a 5 mm calculus present within the bladder lumen. No evidence left or right renal hydronephrosis. This calculus was present on the prior study 11/30/2022. Reproductive: The prostate gland demonstrates calcification and moderate nonspecific enlargement. The seminal vesicles are normal. Lymph nodes: Mild adenopathy present within the mediastinum. Bones/joints: No definitive rib fractures are identified. The skeletal structures and soft tissues show no evidence of fracture or other acute processes. There is fractures of the transverse processes of the lumbar spine. There is a fracture of the transverse process on the right at L3 there is a fracture of the transverse process on the right at L4 and there is a fracture of the transverse process on the left at L5. There may be a nondisplaced fracture of the sacral ala on the left. Soft tissues: There appears to be a small left chest wall hematoma. Other findings: No evidence of significant mesenteric occlusive arterial disease. Mild stenosis without evidence of flow-limiting stenosis present within the common iliac and external iliac arteries bilaterally. IMPRESSION: 1. There is of severe laceration of the spleen with a large subcapsular hematoma there is mixed attenuation the perisplenic fluid present this is consistent with a grade 3 to grade 4 laceration of the spleen. While no definitive focal active hemorrhage is identified at this time, there is a considerable amount of high attenuation material in the perisplenic region as well as within the pelvis highly concerning for subacute hemorrhage. 2. There is a large attenuation fluid collection present within the pelvis measuring 7.1 x 8.1 x 4.4 cm consistent with a large amount of free peritoneal hemorrhage. 3. There are calcified gallstones present within the gallbladder lumen. There is mild thickening of the gallbladder wall. There is small amount of pericholecystic fluid and possible thickening of the gallbladder wall. Consider calculus cholecystitis. 4. Possible small amount high attenuation fluid within the gallbladder lumen. Consider hemorrhage within the gallbladder lumen. 5. Possible mild thickening of the proximal duodenal wall consider hematoma.. 6. There is no evidence of filling defects within the pulmonary arterial circulation to suggest pulmonary embolism. 7. There is a small left pleural effusion present. 8. There is a fracture of the transverse process on the right at L3 there is a fracture of the transverse process on the right at L4 and there is a fracture of the transverse process on the left at L5. 9. There may be a nondisplaced fracture of the sacral ala on the left. 10. Mild stenosis without evidence of flow-limiting stenosis present within the common iliac and external iliac arteries bilaterally. 11. There is a 5 mm calculus present within the bladder lumen. No evidence left or right renal hydronephrosis. This calculus was present on the prior study 11/30/2022. 12. No evidence of significant mesenteric occlusive arterial disease. 13. Mild stenosis without evidence of flow-limiting stenosis present within the common iliac and external iliac arteries bilaterally. Dictated and Authenticated by: Bon López MD. Ordering:SHAMA Jaimes MD
[2022-12-08 21:40] LABS: Troponin I < 50 ng/L (<or=60)
--- NOTE | 2022-12-08 21:52 | W.PM.HP.N ---
Date of service: 12/08/22 Time of Service: 21:53 Assessment and Plan Assessment and plan (1) Acute blood loss anemia: Start date: 12/08/22 Status: Acute Assessment and plan: Patient has dropped his hemoglobin by 5 g/dL with evidence of acute bleeding into his intra-abdominal cavity from his splenic laceration. Comfort measures the patient not wanting interventions or transfusions but monitor labs appropriate of care intact and close form completed. Patient will have IV morphine and Ativan as needed and hold his usual current meds because of the possibility of lowering his blood pressure. He does have IV access but no IV fluid resuscitation per patient's wishes. (2) Spleen laceration: Start date: 12/08/22 Status: Acute Assessment and plan: Patient fell 10 days ago off a ladder and neck laceration now has worsened with recent fall and patient being weak with blood loss. Laceration now has bled into the abdominal cavity and appears and patient wants comfort measures. She appears to be a slow process without acute exsanguination but significant drop in hemoglobin. Qualifiers: Encounter type: subsequent encounter Qualified Code(s): S36.039D - Unspecified laceration of spleen, subsequent encounter (3) Subarachnoid bleed: Start date: 12/08/22 Status: Acute Assessment and plan: As a sequela to multiple falls. Stable at this time but possibly causing headache. Patient also has stable subdural hematoma. Comfort measures. (4) Fall as cause of accidental injury at home as place of occurrence: Start date: 12/08/22 Status: Acute Assessment and plan: Patient is weak with recent weight loss and multiple falls now with sequelae with lacerated spleen and acute blood loss anemia with intra-abdominal free blood, T-spine transverse process fractures and subdural/SAH prompting hospitalization for BLUING OVEN TENDER measures. Qualifiers: Encounter type: subsequent encounter Qualified Code(s): W19.XXXD - Unspecified fall, subsequent encounter; Y92.009 - Unspecified place in unspecified non-institutional (private) residence as the place of occurrence of the external cause (5) Laceration of brow without complication: Start date: 12/08/22 Status: Acute Assessment and plan: Repaired with sutures. Wound care, keep clean and dry. Qualifiers: Encounter type: initial encounter Qualified Code(s): S01.81XA - Laceration without foreign body of other part of head, initial encounter (6) Essential tremor: Status: Chronic Assessment and plan: Hold patient's usual home meds since these may complicate his acute situation. (7) COVID-19: Start date: 12/08/22 Status: Acute Assessment and plan: Airborne precautions with negative pressure room and appropriate grounding and masking with symptomatic treatment. (8) Comfort measures only status: Start date: 12/08/22 Status: Acute Assessment and plan: Patient had advanced directives but no COLST form which will be addressed with patient care consultation in the morning. For now he will be placed on BLUING OVEN TENDER measures to where he can be in a room with family visiting being end-of-life. History of Present Illness History of Present Illness Chief Complaint: Multiple falls with spleen laceration and acute bleeding, weakness Narrative: This is a 77-year-old male patient who fell off of a ladder about 10 days ago according to ED provider sustaining a laceration to the spleen with other injuries evaluated in ED but returning home by choice being a DNR/DNI and then reporting to the ED today with recurrent falls and a laceration over his right forehead as well as acute anemia with reimaging revealing acute splenic bleed into the intra-abdominal cavity with multiple sequelae from his falls including subarachnoid hemorrhage and his subdural over the frontal aspect of his brain which was stable with repeat CT at 6 hours after his initial visit to the ED today. He was wanting to go home to but has no one at home to take care of him and his daughter was with him in the ED. He agreed to stay in the hospital for monitoring and comfort measures with Perative care consult. He will be DNR/DNI and comfort measures only. Minimal labs will be done to trend but this will be discontinued once palliative care consult and COLST form is completed making him truly BLUING OVEN TENDER. At this point he only has advanced directives but his daughter is in agreement with his wishes. He is agreeable to a Mantilla catheter to where he does not have to move with pain resulting from his injuries including transverse process fractures of his T-spine and his abdominal discomfort with his lacerated spleen. The patient had minimal conversation and wanted to be left alone whenever I examined him in the ED. Review of Systems Narrative: 13 point review of systems positive for weight loss recently which was unexplained and slow deterioration of health reported by family with patient not able to offer further review of systems. PFS All Active Problems (Updated 12/08/22 @ 23:07 by Carlos Saleem) COVID-19 (Acute) Comfort measures only status (Acute) Spleen laceration (Acute) Acute cholecystitis (Acute) Bleeding in brain (Acute) Abdominal pain (Acute) Acute blood loss anemia (Acute) Ruptured spleen (Acute) Laceration of brow without complication (Acute) Lethargy (Acute) Fall (Acute) Minor contusion of spleen (Acute) Subarachnoid bleed (Acute) Lumbar transverse process fracture (Acute) Nicotine dependence, cigarettes, uncomplicated (Acute) Constipation (Acute) ROE and COPD overlap syndrome (Acute) Rib pain on right side (Acute) Fall as cause of accidental injury at home as place of occurrence (Acute) Anemia, iron deficiency (Acute) Weight loss, abnormal (Acute) Tubular adenoma (Acute 01/29/16) Mass of vallecula (Acute) Pharyngeal dysphagia (Acute) Aspiration into lower respiratory tract (Acute) Vocal cord dysfunction (Acute) Vocal cord paralysis (Acute) Ribs, multiple fractures (Acute 06/05/13) Ribs 7 through 9 Atelectasis (Acute 06/05/13) COPD (chronic obstructive pulmonary disease) (Chronic) Jun 24, 2012 PFT's with FEV1 60% predicted, severe obstrtuctive disease with no significatn bronchodilator response. Tobacco abuse (Chronic) Ongoing tobacco use, nicotiune replacement not helpful, Chntix helped in the past but could not afford. PFT's performed 07/03/12 with REV1 60% predicted, severe obstrructive disease with no significant bronchodilator response. Sleep apnea (Chronic) Treated with CPAP. Essential tremor (Chronic) Chronic back pain (Chronic) Weight loss (Acute) Dysphagia (Acute) Hyperlipidemia (Chronic) Medical History Chronic low back pain Cigarette smoker Colon polyps 01/08/19 w/ Dr Marya Stinson, [facility], tubular adenoma, repeat 3 yrs 01/29/16 w/ Dr. Aleyda Irizarry, 4 tubular adenoma's, repeat 3 years COPD (chronic obstructive pulmonary disease) Hearing loss History of broken collarbone right collarbone fx with hardware- per pt 6 years ago Polyuria Shoulder pain, left Sleep apnea Tremor Surgical History Hx of surgical procedure clavicle repair Hx of thumb surgery 1973. [address] in place Family History Mother Colon cancer Social History Smoking/Tobacco Use Status: Former Tobacco Use Tobacco: How many years used: 50 Smoking risk assessment performed?: Yes Alcohol Intake: never Drug use: Never Substance use type: does not use Details: QUIT SMOKING A MONTH AGO, CURRENTLY USING CHANTIX TO QUIT Do you feel safe at home: Yes (unable to ask privately) Do you feel safe in your relationship?: Yes Additional Social history: Meds Allergies and Home Medications Allergies Allergy/AdvReac Type Severity Reaction Status Date / Time aspirin AdvReac Intermediate GI UPSET Verified 11/30/22 18:15 Home Medications Medication Instructions Recorded Confirmed Type cholecalciferol (vitamin D3) 50 50 mcg PO DAILY 04/06/20 12/08/22 History mcg (2,000 unit) capsule propranolol 120 mg capsule,24 120 mg PO DAILY 04/06/20 12/08/22 History hr,extended release primidone 250 mg tablet 300 mg PO TID #270 tab-caps 05/23/20 12/08/22 History albuterol sulfate 90 mcg/actuation 2 puff inhalation Q6H PRN 02/04/22 12/08/22 Rx aerosol inhaler shortness of breath or wheezing #8.5 grams fluticasone fur. 100 mcg-umeclid 1 inh inhalation DAILY #60 ea 05/16/22 12/08/22 Rx 62.5 mcg-vilant 25 mcg inhalat.powder (Trelegy Ellipta) acetaminophen 500 mg tablet 650 mg PO TID PRN PRN #0 tabs 12/02/22 12/08/22 Rx Exam Narrative Exam Narrative: General: Patient appears older than stated age and traumatized, cachectic appearing, lying in bed with head at 45 degree angle and uncomfortable with any movement. His right eye is closed with a laceration over his eye sutured and clean without active bleeding but bruising surrounding the laceration. He is alert and oriented at least to person and place. He is a minimal conversation has wanting to be left alone. HEENT: Normocephalic, traumatized face with laceration over the eyebrow on the right and bruising with coarsened facial features diffusely, eyes with pupils equal and react to light symmetrically, extraocular movement tact and sclera anicteric. Oropharynx dry the patient edentulous. Neck: Decreased range of motion but supple. No JVD. Back: Not examined the patient lying supine and comfortable. Tender to palpation over the upper thoracic spine with areas of transverse process fractures but no bruising noted. Lungs: Bronchovesicular breath sounds diffusely with no focalizing rales or rhonchi. Patient has occasional cough. Fair to poor aeration. Chest: Cachectic appearing with prominent right proximal clavicle for what appears to be previous fracture with displacement but firm without crepitus, no bruising over the chest, heart with regular rate and rhythm and no appreciable murmur or gallop. Abdomen: Scaphoid contour, tender over the left upper abdomen but no induration and no rebound. Guarding with palpation. Also tender over the epigastrium and right upper quadrant but less so with no Helms sign. Bowel sounds positive all quadrants. Genitalia/rectal: Grossly normal external genitalia with circumcised penis. Rectal exam deferred. Extremities: Without clubbing, cyanosis or pitting edema. Fair cap refill. Skin: Pale, warm and dry with actinic changes over sun exposed areas. Neuro: Cranial nerves II through XII grossly intact with decreased hearing acuity. No focal motor deficits. No tremor noted with patient have a history of tremor. Psych: Flattened affect with depressed mood and patient withdrawn and pain with eyes closed. He is not responding for testing of abnormal thought processes, remote or recent memory. Results Imaging Imaging Studies: Exam: CTA Chest With Contrast CTA Abdomen With Contrast Exam date and time: 12/08/2022 7:41 PM Age: 77 years old Clinical indication: Other: Lethargy, anemia, ? splenic laceration, ? pneumonia; Shortness of breath; Prior surgery; Surgery date: 6+ months; Surgery type: Clavicle TECHNIQUE: Imaging protocol: Computed tomographic angiography of the chest with contrast. Exam focused on the arteries. Computed tomographic angiography of the abdomen with contrast. Exam focused on the arteries. 3D rendering (Not supervised by radiologist): MIP and/or 3D reconstructed images were created by the technologist. Radiation optimization: All CT scans at this facility use at least one of these dose optimization techniques: automated exposure control; mA and/or kV adjustment per patient size (includes targeted exams where dose is matched to clinical indication); or iterative reconstruction. Contrast material: OMNIPAQUE 350; Contrast volume: 100 ml; Contrast route: INTRAVENOUS (IV);? COMPARISON: CT CHEST/ABD/PEL W 11/30/2022 3:21 PM FINDINGS: VASCULATURE: Pulmonary arteries: The pulmonary arteries are not enlarged. There is no evidence of filling defects within the pulmonary arterial circulation to suggest pulmonary embolism. Great vessels off aortic arch: Moderate atherosclerosis of the great vessels. Aorta: The aorta demonstrates moderate atherosclerotic calcification. Moderate atherosclerosis of the abdominal aorta present. Mild focal ectasia of the infrarenal abdominal aorta measuring 2.3 cm without definitive aneurysmal dilatation. Celiac trunk and mesenteric arteries: [id number] atherosclerosis of the mesenteric arteries present. No evidence of aneurysmal dilatation or dissection. Renal arteries: There is a mild approximately 20-30% stenosis of the left renal artery. Mild atherosclerosis right renal artery no evidence of flow-limiting stenoses. Right iliac arteries: Moderate atherosclerosis of the right common iliac artery. Moderate atherosclerosis of the right internal and external iliac arteries. The right common iliac artery, right internal iliac artery and right external iliac arteries are widely patent without evidence of significant occlusive or aneurysmal disease. Right femoral/popliteal arteries: Mild atherosclerosis of the right common femoral deep and superficial femoral arteries. The right common femoral artery is widely patent without evidence of significant occlusive or aneurysmal disease. The proximal right deep and superficial femoral arteries are widely patent without evidence of significant occlusive or aneurysmal disease. Left iliac arteries: Moderate atherosclerosis of the left common iliac artery. Moderate atherosclerosis of the left external iliac and left internal iliac arteries. The left common iliac artery, left internal iliac artery and left external iliac arteries are widely patent without evidence of significant occlusive or aneurysmal disease. Left femoral/popliteal arteries: The left common femoral artery is widely patent without evidence of significant occlusive or aneurysmal disease. The proximal left deep and superficial femoral arteries are widely patent without evidence of significant occlusive or aneurysmal disease. CHEST: Lungs: Severe centrilobular emphysematous changes are present. There is focal consolidation within the left lower lobe of the lung consider pulmonary contusion. Pleural spaces: There is no evidence of pneumothorax. There is a small left pleural effusion present. Heart: The right ventricular to left ventricular ratio is normal measuring 0.8. Coronary arteries: There is moderate atherosclerotic calcification of the coronary arteries. ABDOMEN AND PELVIS: Liver: There are no focal liver lesions present. Gallbladder and bile ducts: There are calcified gallstones present within the gallbladder lumen. There is mild thickening of the gallbladder wall. There is small amount of pericholecystic fluid and possible thickening of the gallbladder wall. Consider calculus cholecystitis. Possible small amount high attenuation fluid within the gallbladder lumen. Consider hemorrhage within the gallbladder lumen. Pancreas: No mass. No ductal dilation. Spleen: There is of severe laceration of the spleen with a large subcapsular hematoma there is mixed attenuation the perisplenic fluid present this is consistent with a grade 3 to grade 4 laceration of the spleen. Adrenal glands: Unremarkable. No mass. Kidneys and ureters: There are large simple appearing cysts seen within the left kidney the largest measuring approximately 8.4 cm. No follow-up indicated. No evidence of left hydronephrosis or left renal calculi. There is a 2 mm inferior pole right renal calculus present. This is nonobstructing. There are multiple sub cm cysts seen within the right kidney. No follow-up indicated. Stomach and bowel: Possible mild thickening of the proximal duodenal wall consider hematoma.. No obstruction. No mucosal thickening. Intraperitoneal space: There is a large attenuation fluid collection present within the pelvis measuring 7.1 x 8.1 x 4.4 cm consistent with a large amount of free peritoneal hemorrhage. No evidence of free air within the abdomen. Urinary bladder: The bladder is normal. There is a 5 mm calculus present within the bladder lumen. No evidence left or right renal hydronephrosis. This calculus was present on the prior study 11/30/2022. Reproductive: The prostate gland demonstrates calcification and moderate nonspecific enlargement. The seminal vesicles are normal. Lymph nodes: Mild adenopathy present within the mediastinum. Bones/joints: No definitive rib fractures are identified. The skeletal structures and soft tissues show no evidence of fracture or other acute processes. There is fractures of the transverse processes of the lumbar spine. There is a fracture of the transverse process on the right at L3 there is a fracture of the transverse process on the right at L4 and there is a fracture of the transverse process on the left at L5. There may be a nondisplaced fracture of the sacral ala on the left. Soft tissues: There appears to be a small left chest wall hematoma. Other findings: No evidence of significant mesenteric occlusive arterial disease. Mild stenosis without evidence of flow-limiting stenosis present within the common iliac and external iliac arteries bilaterally. IMPRESSION: 1. ? There is of severe laceration of the spleen with a large subcapsular hematoma there is mixed attenuation the perisplenic fluid present this is consistent with a grade 3 to grade 4 laceration of the spleen. While no definitive focal active hemorrhage is identified at this time, there is a considerable amount of high attenuation material in the perisplenic region as well as within the pelvis highly concerning for subacute hemorrhage. 2. ? There is a large attenuation fluid collection present within the pelvis measuring 7.1 x 8.1 x 4.4 cm consistent with a large amount of free peritoneal hemorrhage. 3. ? There are calcified gallstones present within the gallbladder lumen. There is mild thickening of the gallbladder wall. There is small amount of pericholecystic fluid and possible thickening of the gallbladder wall. Consider calculus cholecystitis. 4. ? Possible small amount high attenuation fluid within the gallbladder lumen. Consider hemorrhage within the gallbladder lumen. 5. ? Possible mild thickening of the proximal duodenal wall consider hematoma.. 6. ? There is no evidence of filling defects within the pulmonary arterial circulation to suggest pulmonary embolism. 7. ? There is a small left pleural effusion present. 8. ? There is a fracture of the transverse process on the right at L3 there is a fracture of the transverse process on the right at L4 and there is a fracture of the transverse process on the left at L5. 9. ? There may be a nondisplaced fracture of the sacral ala on the left. 10. ? Mild stenosis without evidence of flow-limiting stenosis present within the common iliac and external iliac arteries bilaterally. 11. ? There is a 5 mm calculus present within the bladder lumen. No evidence left or right renal hydronephrosis. This calculus was present on the prior study 11/30/2022. 12. ? No evidence of significant mesenteric occlusive arterial disease. 13. ? Mild stenosis without evidence of flow-limiting stenosis present within the common iliac and external iliac arteries bilaterally. Exam: CT Head Without Contrast Exam date and time: 12/08/2022 7:34 PM Age: 77 years old Clinical indication: Altered mental status/memory loss; Confusion or disorientation; Patient HX: AMS TECHNIQUE: Imaging protocol: Computed tomography of the head without contrast. Radiation optimization: All CT scans at this facility use at least one of these dose optimization techniques: automated exposure control; mA and/or kV adjustment per patient size (includes targeted exams where dose is matched to clinical indication); or iterative reconstruction. COMPARISON: CT HEAD WO 12/08/2022 9:07 AM, CT head December 08, 2022 3:14 a.m. FINDINGS: Brain: There is a small acute right frontal subdural hematoma with a maximum thickness of 3 mm, best demonstrated by image 220 of series 8. There is no gross associated mass effect upon the adjacent brain. There is no midline shift. The langford white matter differentiation appears preserved. There is symmetric parenchymal volume loss. Cerebral ventricles: The ventricular system and basilar cisterns appear appropriate in size and configuration. Paranasal sinuses: The paranasal sinuses appear well aerated. No air-fluid levels are seen. Mastoid air cells: The mastoid air cells appear well-aerated. Auditory system: The middle ear cavities appear clear. Orbital cavities: The globes and intraorbital structures appear grossly intact. Bones/joints: The bony calvarium appears intact. No depressed skull fracture is seen. There are old bilateral nasal bone fractures with rightward deviation of the nose and mild undulation of the nasal septum. Soft tissues: There is a right frontal scalp contusion with an associated laceration in the supraorbital region. IMPRESSION: Small acute right frontal subdural hematoma with a maximum thickness of 3 mm, stable compared with prior exams from earlier in the day. No gross associated mass effect. No acute skull fracture. Exam: CT Head Without Contrast Exam date and time: 12/08/2022 3:12 AM Age: 77 years old Clinical indication: Other: Fall, hit right brow TECHNIQUE: Imaging protocol: Computed tomography of the head without contrast. Radiation optimization: All CT scans at this facility use at least one of these dose optimization techniques: automated exposure control; mA and/or kV adjustment per patient size (includes targeted exams where dose is matched to clinical indication); or iterative reconstruction. COMPARISON: CT HEAD WO 11/30/2022 9:10 PM FINDINGS: Brain: Small, thin areas of curvilinear hyperdensity of the anterior bilateral frontal lobes following the gyral morphology (coronal head, DICOM series 6, images 9-11), suspicious for small bifrontal subarachnoid hemorrhage versus beam hardening from the adjacent calvarium. Right parietal linear hyperdense focus is no longer appreciated No midline shift or mass effect. Langford-white matter differentiation is preserved. Cerebral ventricles: No ventriculomegaly. Paranasal sinuses: Visualized sinuses are unremarkable. No fluid levels. Mastoid air cells: Visualized mastoid air cells are well aerated. Bones/joints: No acute fracture. Soft tissues: Unremarkable. IMPRESSION: Question small foci of bifrontal subarachnoid hemorrhage. PROCEDURE INFORMATION: Exam: CT Maxillofacial Without Contrast Exam date and time: 12/08/2022 3:12 AM Age: 77 years old Clinical indication: Other: Fall, hit right brow TECHNIQUE: Imaging protocol: Computed tomography of the face without contrast. Radiation optimization: All CT scans at this facility use at least one of these dose optimization techniques: automated exposure control; mA and/or kV adjustment per patient size (includes targeted exams where dose is matched to clinical indication); or iterative reconstruction. COMPARISON: CT HEAD WO 11/30/2022 9:10 PM FINDINGS: Orbital cavities: Orbits are normal. Globes are unremarkable. Bones/joints: Comminuted, mildly displaced nasal bone fractures. Edentulous mandible and maxilla. Paranasal sinuses: Normal. No air-fluid levels. Soft tissues: Soft tissue laceration overlying the right orbit. IMPRESSION: 1. ? Comminuted, mildly displaced nasal bone fractures. 2. ? Soft tissue laceration overlying the right orbit. PROCEDURE INFORMATION: Exam: CT Cervical Spine Without Contrast Exam date and time: 12/08/2022 3:12 AM Age: 77 years old Clinical indication: Other: Fall, hit right brow TECHNIQUE: Imaging protocol: Computed tomography of the cervical spine without contrast. Radiation optimization: All CT scans at this facility use at least one of these dose optimization techniques: automated exposure control; mA and/or kV adjustment per patient size (includes targeted exams where dose is matched to clinical indication); or iterative reconstruction. COMPARISON: CT HEAD CERVICAL SPINE WO 11/30/2022 3:15 PM FINDINGS: Bones/joints: There is increased conspicuity of the T1 and T2 compression fractures with slight interval anterior vertebral height loss at T2. Craniocervical alignment is anatomic. Mild, degenerative retrolisthesis of C4 on C5. Mild multilevel cervical spondylosis, most pronounced at C4-C5 and C5-C6. Lungs: Severe apical emphysema. Soft tissues: Unremarkable. IMPRESSION: Mild compression fractures of superior endplates of T1 and T2. Labs 12/08/22 18:51 12/08/22 18:51 Labs: Laboratory Results - last 24 hr 12/08/22 12/08/22 12/08/22 18:51 18:51 18:51 WBC 7.94 RBC 3.37 L Hgb 9.9 L Hct 29.2 L MCV 87 MCH 29.4 MCHC 33.9 RDW 16.8 H Plt Count 340 MPV 9.0 Immature Gran % 0.5 Neutrophils % 87.3 Lymphocytes % 2.9 Monocytes % 8.6 Eosinophils % 0.3 Basophils % 0.4 Nucleated RBC % 0.0 Absolute Neutrophils 6.94 H Absolute Lymphocytes 0.23 L Absolute Monocytes 0.68 Absolute Eosinophils 0.02 Absolute Basophils 0.03 VBG Lactate 0.8 Sodium 138 Potassium 4.4 Chloride 102 Carbon Dioxide 26.7 Anion Gap 9.3 BUN 25 H Creatinine 1.0 Est GFR (CKD-EPI 2020) 78.49 Glucose 141 H Calcium 9.0 Magnesium 1.6 L Total Bilirubin 0.7 AST 27 ALT 26 Alkaline Phosphatase 112 Troponin I Total Protein 7.7 Albumin 2.7 L Procalcitonin < 0.1 TSH 1.82 Urine Color Urine Clarity Urine pH Ur Specific [place] Urine Protein Urine Ketones Urine Blood Urine Nitrite Urine Bilirubin Urine Urobilinogen Ur Leukocyte Esterase Urine RBC Urine WBC Ur Epithelial Cells Urine Crystals Urine Bacteria Urine Casts Urine Mucus Ur Culture Indicated? Urine Glucose COVID-19 Source SARS-CoV-2 (PCR) Influenza Type A (PCR) Influenza Type B (PCR) RSV (PCR) 12/08/22 12/08/22 12/08/22 18:51 18:57 18:57 WBC RBC Hgb Hct MCV MCH MCHC RDW Plt Count MPV Immature Gran % Neutrophils % Lymphocytes % Monocytes % Eosinophils % Basophils % Nucleated RBC % Absolute Neutrophils Absolute Lymphocytes Absolute Monocytes Absolute Eosinophils Absolute Basophils VBG Lactate Sodium Potassium Chloride Carbon Dioxide Anion Gap BUN Creatinine Est GFR (CKD-EPI 2020) Glucose Calcium Magnesium Total Bilirubin AST ALT Alkaline Phosphatase Troponin I < 50 Total Protein Albumin Procalcitonin TSH Urine Color Yellow Urine Clarity Clear Urine pH 6.0 Ur Specific [place] 1.020 Urine Protein 30 H Urine Ketones Negative Urine Blood Trace-intact H Urine Nitrite Negative Urine Bilirubin Small H Urine Urobilinogen 4.0 H Ur Leukocyte Esterase Negative Urine RBC 3-5 H Urine WBC Negative Ur Epithelial Cells Rare Urine Crystals Negative Urine Bacteria Rare Urine Casts 0-2 Hyaline Urine Mucus Negative Ur Culture Indicated? No Urine Glucose Negative COVID-19 Source Nasopharynx SARS-CoV-2 (PCR) Positive A Influenza Type A (PCR) Negative Influenza Type B (PCR) Negative RSV (PCR) Negative 12/08/22 21:12 WBC RBC Hgb Hct MCV MCH MCHC RDW Plt Count MPV Immature Gran % Neutrophils % Lymphocytes % Monocytes % Eosinophils % Basophils % Nucleated RBC % Absolute Neutrophils Absolute Lymphocytes Absolute Monocytes Absolute Eosinophils Absolute Basophils VBG Lactate Sodium Potassium Chloride Carbon Dioxide Anion Gap BUN Creatinine Est GFR (CKD-EPI 2020) Glucose Calcium Magnesium Total Bilirubin AST ALT Alkaline Phosphatase Troponin I < 50 Total Protein Albumin Procalcitonin TSH Urine Color Urine Clarity Urine pH Ur Specific [place] Urine Protein Urine Ketones Urine Blood Urine Nitrite Urine Bilirubin Urine Urobilinogen Ur Leukocyte Esterase Urine RBC Urine WBC Ur Epithelial Cells Urine Crystals Urine Bacteria Urine Casts Urine Mucus Ur Culture Indicated? Urine Glucose COVID-19 Source SARS-CoV-2 (PCR) Influenza Type A (PCR) Influenza Type B (PCR) RSV (PCR) Last Vital Signs Temp 36.8 C 12/08/22 18:29 Pulse 99 H 12/08/22 18:29 Resp 18 12/08/22 18:29 BP 132/71 12/08/22 18:29 Pulse Ox 93 12/08/22 20:41 Time Spent Time spent with Patient: >75 minutes Time was spent: preparing to see the patient(eg.review tests), obtaining and/or reviewing separately otained hiistory, ordering medications,tests, procedures, referring, communicating with other health healthcare applications analyst, indepentently interpreting results and care coordination
--- NOTE | 2022-12-08 22:02 | ED.GENADUL_ITS ---
Discharge Plan Disposition Condition: Stable Discharge Details Chief Complaint: AMS/LOC Clinical Impression: Lethargy, Fall Primary Care Provider: Peter Boone ED Provider: Per Cullen Home Meds and New Rx's Prescriptions: No Action albuterol sulfate 90 mcg/actuation HFA aerosol inhaler 2 puff inhalation Q6H PRN (Reason: shortness of breath or wheezing) Qty: 8.5 12RF Trelegy Ellipta 100-62.5-25 mcg blister with device 1 inh inhalation DAILY Qty: 60 5RF propranolol 120 mg capsule,extended release 24 hr 120 mg PO DAILY cholecalciferol (vitamin D3) 50 mcg (2,000 unit) capsule 50 mcg PO DAILY primidone 250 mg tablet 300 mg PO TID Qty: 270 acetaminophen 500 mg Tablet 650 mg PO TID PRN PRNQty: 0 0RF HPI General Mode of arrival: EMS . Date/Time Provider Initiated Documentation: 12/08/22 18:37 . Information obtained by: patient and family . History of Present Illness No relieving factors improve symptom(s), No exacerbating factors reported . Patient notes cough; denies nausea/vomiting. Patient did receive the following treatments prior to arrival, none Related Data Home Medications Medication Instructions Recorded Confirmed cholecalciferol (vitamin D3) 50 50 mcg PO DAILY 04/06/20 12/08/22 mcg (2,000 unit) capsule propranolol 120 mg capsule,24 120 mg PO DAILY 04/06/20 12/08/22 hr,extended release primidone 250 mg tablet 300 mg PO TID #270 tab-caps 05/23/20 12/08/22 albuterol sulfate 90 mcg/actuation 2 puff inhalation Q6H PRN 02/04/22 12/08/22 aerosol inhaler shortness of breath or wheezing #8.5 grams fluticasone fur. 100 mcg-umeclid 1 inh inhalation DAILY #60 ea 05/16/22 12/08/22 62.5 mcg-vilant 25 mcg inhalat.powder (Trelegy Ellipta) acetaminophen 500 mg tablet 650 mg PO TID PRN PRN #0 tabs 12/02/22 12/08/22 Previous Rx's Medication Instructions Recorded albuterol sulfate 90 mcg/actuation 2 puff inhalation Q6H PRN 02/04/22 aerosol inhaler shortness of breath or wheezing #8.5 grams fluticasone fur. 100 mcg-umeclid 1 inh inhalation DAILY #60 ea 05/16/22 62.5 mcg-vilant 25 mcg inhalat.powder (Trelegy Ellipta) acetaminophen 500 mg tablet 650 mg PO TID PRN PRN #0 tabs 12/02/22 Allergies Allergy/AdvReac Type Severity Reaction Status Date / Time aspirin AdvReac Intermediate GI UPSET Verified 11/30/22 18:15 General Stated Complaint: AMS/LOC NAWAF: 3 PFSH All Active Problems (Updated 12/08/22 @ 21:54 by Carlos Saleem) Acute blood loss anemia (Acute) Ruptured spleen (Acute) Laceration of brow without complication (Acute) Lethargy (Acute) Fall (Acute) Minor contusion of spleen (Acute) Subarachnoid bleed (Acute) Lumbar transverse process fracture (Acute) Nicotine dependence, cigarettes, uncomplicated (Acute) Constipation (Acute) ROE and COPD overlap syndrome (Acute) Rib pain on right side (Acute) Fall as cause of accidental injury at home as place of occurrence (Acute) Anemia, iron deficiency (Acute) Weight loss, abnormal (Acute) Tubular adenoma (Acute 01/29/16) Mass of vallecula (Acute) Pharyngeal dysphagia (Acute) Aspiration into lower respiratory tract (Acute) Vocal cord dysfunction (Acute) Vocal cord paralysis (Acute) Ribs, multiple fractures (Acute 06/05/13) Ribs 7 through 9 Atelectasis (Acute 06/05/13) COPD (chronic obstructive pulmonary disease) (Chronic) Jun 24, 2012 PFT's with FEV1 60% predicted, severe obstrtuctive disease with no significatn bronchodilator response. Tobacco abuse (Chronic) Ongoing tobacco use, nicotiune replacement not helpful, Chntix helped in the past but could not afford. PFT's performed 07/03/12 with REV1 60% predicted, severe obstrructive disease with no significant bronchodilator response. Sleep apnea (Chronic) Treated with CPAP. Essential tremor (Chronic) Chronic back pain (Chronic) Weight loss (Acute) Dysphagia (Acute) Hyperlipidemia (Chronic) Medical History Chronic low back pain Cigarette smoker Colon polyps 01/08/19 w/ Dr Marya Stinson, [facility], tubular adenoma, repeat 3 yrs 01/29/16 w/ Dr. Aleyda Irizarry, 4 tubular adenoma's, repeat 3 years COPD (chronic obstructive pulmonary disease) Hearing loss History of broken collarbone right collarbone fx with hardware- per pt 6 years ago Polyuria Shoulder pain, left Sleep apnea Tremor Surgical History Hx of surgical procedure clavicle repair Hx of thumb surgery 1973. Hard[address] in place Family History Mother Colon cancer Social History Smoking/Tobacco Use Status: Former Tobacco Use Tobacco: How many years used: 50 Smoking risk assessment performed?: Yes Alcohol Intake: never Drug use: Never Substance use type: does not use Details: QUIT SMOKING A MONTH AGO, CURRENTLY USING CHANTIX TO QUIT Do you feel safe at home: Yes (unable to ask privately) Do you feel safe in your relationship?: Yes Additional Social history: Course Vital Signs Vital signs: Vital Signs Temperature 36.8 C 12/08/22 18:29 Pulse 99 H 12/08/22 18:29 Respiratory Rate 18 12/08/22 18:29 Blood Pressure 132/71 12/08/22 18:29 Pulse Oximetry 98 12/08/22 18:29 Temperature 36.8 C 12/08/22 18:29 Pulse 99 H 12/08/22 18:29 Respiratory Rate 18 12/08/22 18:29 Respiratory Effort Normal, Non-Labored 12/08/22 18:36 Respiratory Depth Normal 12/08/22 21:53 Blood Pressure 132/71 12/08/22 18:29 Blood Pressure Position Supine 12/08/22 18:29 Pulse Oximetry 93 12/08/22 20:41 Oxygen Delivery Method Nasal Cannula 12/08/22 20:41 Oxygen Flow Rate 0 12/08/22 18:29 Comment patient is on 1 liter. 12/08/22 20:41 Lab/Test Results Lab/Test Results: 12/08/22 19:24 Blood Blood Culture - Pending 12/08/22 19:05 Blood Blood Culture - Pending Laboratory Tests Range/Units 12/08/22 12/08/22 12/08/22 18:51 18:51 18:51 WBC (4.4-10.8) 10^3/uL 7.94 RBC (4.36-5.78) 10^6/uL 3.37 L Hgb (13.5-17.5) g/dL 9.9 L Hct (40.0-50.0) % 29.2 L MCV (80-95) fL 87 MCH (27.0-33.0) pg 29.4 MCHC (32.0-36.0) % 33.9 RDW (11.8-14.1) % 16.8 H Plt Count (130-400) 10^3/uL 340 MPV (8.0-11.0) fL 9.0 Immature Gran % 0.5 Neutrophils % 87.3 Lymphocytes % 2.9 Monocytes % 8.6 Eosinophils % 0.3 Basophils % 0.4 Nucleated RBC % (0.0-0.3) % 0.0 Absolute Neutrophils (1.2-6.7) 10^3/uL 6.94 H Absolute Lymphocytes (1.2-3.4) 10^3/uL 0.23 L Absolute Monocytes (0.1-0.8) 10^3/uL 0.68 Absolute Eosinophils (0.0-0.7) 10^3/uL 0.02 Absolute Basophils (0.0-0.2) 10^3/uL 0.03 VBG Lactate (0.6-1.4) mmol/L 0.8 Sodium (136-145) mmol/L 138 Potassium (3.5-5.1) mmol/L 4.4 Chloride (98-107) mmol/L 102 Carbon Dioxide (21.0-32.0) mmol/L 26.7 Anion Gap (3-11) mmol/L 9.3 BUN (7-18) mg/dL 25 H Creatinine (0.70-1.30) mg/dL 1.0 Est GFR (CKD-EPI 2020) (mL/min/1.73m2) 78.49 Glucose (74-106) mg/dL 141 H Calcium (8.5-10.1) mg/dL 9.0 Magnesium (1.8-2.4) mg/dL 1.6 L Total Bilirubin (0.2-1.0) mg/dL 0.7 AST (15-37) U/L 27 ALT (16-63) U/L 26 Alkaline Phosphatase (46-116) U/L 112 Troponin I (<or=60) ng/L Total Protein (6.4-8.2) g/dL 7.7 Albumin (3.4-5.0) g/dL 2.7 L Procalcitonin ng/mL < 0.1 TSH (0.36-3.74) uIU/mL 1.82 Urine Color (Yellow) Urine Clarity (Clear) Urine pH (5-8) Ur Specific [place] (1.005-1.025) Urine Protein (Negative) mg/dL Urine Ketones (Negative) mg/dL Urine Blood (Negative) Urine Nitrite (Negative) Urine Bilirubin (Negative) Urine Urobilinogen (Up to 0.2) mg/dL Ur Leukocyte Esterase (Negative) Urine RBC (0-2) HPF Urine WBC (0-5) HPF Ur Epithelial Cells (Negative) HPF Urine Crystals (Negative) HPF Urine Bacteria (Negative) HPF Urine Casts (Negative) LPF Urine Mucus (Negative) Ur Culture Indicated? Urine Glucose (Negative) mg/dL COVID-19 Source SARS-CoV-2 (PCR) (Negative) Influenza Type A (PCR) (Negative) Influenza Type B (PCR) (Negative) RSV (PCR) (Negative) Patient ABO/Rh Antibody Screen Range/Units 12/08/22 12/08/22 12/08/22 18:51 18:57 18:57 WBC (4.4-10.8) 10^3/uL RBC (4.36-5.78) 10^6/uL Hgb (13.5-17.5) g/dL Hct (40.0-50.0) % MCV (80-95) fL MCH (27.0-33.0) pg MCHC (32.0-36.0) % RDW (11.8-14.1) % Plt Count (130-400) 10^3/uL MPV (8.0-11.0) fL Immature Gran % Neutrophils % Lymphocytes % Monocytes % Eosinophils % Basophils % Nucleated RBC % (0.0-0.3) % Absolute Neutrophils (1.2-6.7) 10^3/uL Absolute Lymphocytes (1.2-3.4) 10^3/uL Absolute Monocytes (0.1-0.8) 10^3/uL Absolute Eosinophils (0.0-0.7) 10^3/uL Absolute Basophils (0.0-0.2) 10^3/uL VBG Lactate (0.6-1.4) mmol/L Sodium (136-145) mmol/L Potassium (3.5-5.1) mmol/L Chloride (98-107) mmol/L Carbon Dioxide (21.0-32.0) mmol/L Anion Gap (3-11) mmol/L BUN (7-18) mg/dL Creatinine (0.70-1.30) mg/dL Est GFR (CKD-EPI 2020) (mL/min/1.73m2) Glucose (74-106) mg/dL Calcium (8.5-10.1) mg/dL Magnesium (1.8-2.4) mg/dL Total Bilirubin (0.2-1.0) mg/dL AST (15-37) U/L ALT (16-63) U/L Alkaline Phosphatase (46-116) U/L Troponin I (<or=60) ng/L < 50 Total Protein (6.4-8.2) g/dL Albumin (3.4-5.0) g/dL Procalcitonin ng/mL TSH (0.36-3.74) uIU/mL Urine Color (Yellow) Yellow Urine Clarity (Clear) Clear Urine pH (5-8) 6.0 Ur Specific [place] (1.005-1.025) 1.020 Urine Protein (Negative) mg/dL 30 H Urine Ketones (Negative) mg/dL Negative Urine Blood (Negative) Trace-intact H Urine Nitrite (Negative) Negative Urine Bilirubin (Negative) Small H Urine Urobilinogen (Up to 0.2) mg/dL 4.0 H Ur Leukocyte Esterase (Negative) Negative Urine RBC (0-2) HPF 3-5 H Urine WBC (0-5) HPF Negative Ur Epithelial Cells (Negative) HPF Rare Urine Crystals (Negative) HPF Negative Urine Bacteria (Negative) HPF Rare Urine Casts (Negative) LPF 0-2 Hyaline Urine Mucus (Negative) Negative Ur Culture Indicated? No Urine Glucose (Negative) mg/dL Negative COVID-19 Source Nasopharynx SARS-CoV-2 (PCR) (Negative) Positive A Influenza Type A (PCR) (Negative) Negative Influenza Type B (PCR) (Negative) Negative RSV (PCR) (Negative) Negative Patient ABO/Rh Antibody Screen Range/Units 12/08/22 12/08/22 21:12 21:12 WBC (4.4-10.8) 10^3/uL RBC (4.36-5.78) 10^6/uL Hgb (13.5-17.5) g/dL Hct (40.0-50.0) % MCV (80-95) fL MCH (27.0-33.0) pg MCHC (32.0-36.0) % RDW (11.8-14.1) % Plt Count (130-400) 10^3/uL MPV (8.0-11.0) fL Immature Gran % Neutrophils % Lymphocytes % Monocytes % Eosinophils % Basophils % Nucleated RBC % (0.0-0.3) % Absolute Neutrophils (1.2-6.7) 10^3/uL Absolute Lymphocytes (1.2-3.4) 10^3/uL Absolute Monocytes (0.1-0.8) 10^3/uL Absolute Eosinophils (0.0-0.7) 10^3/uL Absolute Basophils (0.0-0.2) 10^3/uL VBG Lactate (0.6-1.4) mmol/L Sodium (136-145) mmol/L Potassium (3.5-5.1) mmol/L Chloride (98-107) mmol/L Carbon Dioxide (21.0-32.0) mmol/L Anion Gap (3-11) mmol/L BUN (7-18) mg/dL Creatinine (0.70-1.30) mg/dL Est GFR (CKD-EPI 2020) (mL/min/1.73m2) Glucose (74-106) mg/dL Calcium (8.5-10.1) mg/dL Magnesium (1.8-2.4) mg/dL Total Bilirubin (0.2-1.0) mg/dL AST (15-37) U/L ALT (16-63) U/L Alkaline Phosphatase (46-116) U/L Troponin I (<or=60) ng/L < 50 Total Protein (6.4-8.2) g/dL Albumin (3.4-5.0) g/dL Procalcitonin ng/mL TSH (0.36-3.74) uIU/mL Urine Color (Yellow) Urine Clarity (Clear) Urine pH (5-8) Ur Specific [place] (1.005-1.025) Urine Protein (Negative) mg/dL Urine Ketones (Negative) mg/dL Urine Blood (Negative) Urine Nitrite (Negative) Urine Bilirubin (Negative) Urine Urobilinogen (Up to 0.2) mg/dL Ur Leukocyte Esterase (Negative) Urine RBC (0-2) HPF Urine WBC (0-5) HPF Ur Epithelial Cells (Negative) HPF Urine Crystals (Negative) HPF Urine Bacteria (Negative) HPF Urine Casts (Negative) LPF Urine Mucus (Negative) Ur Culture Indicated? Urine Glucose (Negative) mg/dL COVID-19 Source SARS-CoV-2 (PCR) (Negative) Influenza Type A (PCR) (Negative) Influenza Type B (PCR) (Negative) RSV (PCR) (Negative) Patient ABO/Rh A Positive Antibody Screen NEGATIVE Sign Out Sign Out Data: Sign Out Comment: fell earlier, had the two cat scans second of which was unremarkable. Since being home lethargic and not able to get out of bed. EMS reported a temp of 101, afebrile here. Lungs rhonchorous. Pending labs, repeat ct head, xray and also reassessment after solumedrol and duoneb. Suspect partially due to concussion Last updated by Theodore Loja MD at 12/08/22 19:05
--- NOTE | 2022-12-08 22:09 | W.EDPROG ---
Date of service: 12/08/22 Time of Service: 22:09 Medical Decision Making Patient was signed out to me by my colleague Dr. Theodore Loja. Please refer to his HPI, physical exam, assessment and plan. For abbreviated history, 10 days ago patient fell off a 10 foot ladder, he had contusion over his spleen, a small brain bleed, however the patient refused admission, want to go home, repeat scans were performed at that time, no change in the intracranial bleeding, and he was discharged home. Since that point he had been somewhat unbalanced, and had some falls, last night he fell again, received a laceration over his right brow. He denied a loss of consciousness at that time, or any new chest or abdominal pain. He was extremely resistant to any further testing, but after long conversations did agree to a CAT scan of the head. He was sutured, but CAT scan revealed evidence of potential new anterior bleed. [facility] recommended repeat CAT scan in 6 hours, patient was again extremely resistant to this but after long discussion agreed to stay for the repeat scan. Patient was then signed out and repeat scan was performed. Repeat scan showed stability per radiology of the bleed. Patient was reassessed and it was recommended that he was observed, however patient continued to make it unequivocally clear that he wanted to go home. He was then discharged respecting his wishes. Throughout the day he developed chest and abdominal pain. It worsened. Family states that in the evening he was extremely weak and not feeling well and complaining of abdominal pain. He was brought into the ER for reassessment. He allowed full work-up at this time secondary to his worsening state. Work-up was ordered by Dr. Loja. On follow-up at this time the patient drops his hemoglobin to 10 which is about 2-3 points from where he was 10 days ago. Magnesium minimally low at 1.6. Troponin normal. COVID test is positive. Repeat CAT scan shows stability of brain bleed, however CT abdomen shows multiple abnormalities including a grade 3-4 splenic tear, a large subscapular hematoma with no active hemorrhage at this time. Age indeterminant however there is a component that is concerning for subacute hemorrhage. There is also thickening of the gallbladder wall concerning for cholecystitis. There is also concern for a sacral una fracture on the left. I discussed all of this with the patient and the daughter who is at bedside. Patient is still unequivocally clear he states that he does not want transfer, he does not want surgery, he does not want any aggressive interventions. He repeatedly tells me that he put this in his advance directives already. When referencing his advanced directives they are very clear that he is DNR, DNI, comfort measures. I discussed this multiple times with the patient and patient specifically verbalized to me I have a bleed in my spleen, it is going to cause me to , I want no interventions or anything done except to be comfortable. I would like to stay here knowing that I will probably . This was all discussed with the daughter who is also at bedside, and she states that they went over this before with him in the past, and this was his wish, she will respect it. Patient demonstrates clear understanding of the current situation. 1 g of TXA had been given and PRBCs had been started. We will finish these with no additional intervention. Patient will be admitted to the floor is comfort measures. I have extensively reviewed the treatment plan with the patient. I have addressed all patient concerns at this time. I have also discussed the plan with the admitting physician and they agree with the current assessment and plan and have agreed to assume responsibility for the patient. All parties demonstrate verbal understanding and agreement with our assessment and plan at this time. The documentation in this chart was dictated using [employer] dictation software. Please excuse any dictation errors. FINDINGS: Brain: There is a small acute right frontal subdural hematoma with a maximum thickness of 3 mm, best demonstrated by image 220 of series 8. There is no gross associated mass effect upon the adjacent brain. There is no midline shift. The blair white matter differentiation appears preserved. There is symmetric parenchymal volume loss. Cerebral ventricles: The ventricular system and basilar cisterns appear appropriate in size and configuration. Paranasal sinuses: The paranasal sinuses appear well aerated. No air-fluid levels are seen. Mastoid air cells: The mastoid air cells appear well-aerated. Auditory system: The middle ear cavities appear clear. Orbital cavities: The globes and intraorbital structures appear grossly intact. Bones/joints: The bony calvarium appears intact. No depressed skull fracture is seen. There are old bilateral nasal bone fractures with rightward deviation of the nose and mild undulation of the nasal septum. Soft tissues: There is a right frontal scalp contusion with an associated laceration in the supraorbital region. IMPRESSION: Small acute right frontal subdural hematoma with a maximum thickness of 3 mm, stable compared with prior exams from earlier in the day. No gross associated mass effect. No acute skull fracture. Thank you for allowing us to participate in the care of your patient. Dictated and Authenticated by: Maxi Rojas MD 12/08/2022 8:13 PM Eastern Time ([place] & [place]) VASCULATURE: Pulmonary arteries: The pulmonary arteries are not enlarged. There is no evidence of filling defects within the pulmonary arterial circulation to suggest pulmonary embolism. Great vessels off aortic arch: Moderate atherosclerosis of the great vessels. Aorta: The aorta demonstrates moderate atherosclerotic calcification. Moderate atherosclerosis of the abdominal aorta present. Mild focal ectasia of the infrarenal abdominal aorta measuring 2.3 cm without definitive aneurysmal dilatation. Celiac trunk and mesenteric arteries: [id number] atherosclerosis of the mesenteric arteries present. No evidence of aneurysmal dilatation or dissection. Renal arteries: There is a mild approximately 20-30% stenosis of the left renal artery. Mild atherosclerosis right renal artery no evidence of flow-limiting stenoses. Right iliac arteries: Moderate atherosclerosis of the right common iliac artery. Moderate atherosclerosis of the right internal and external iliac arteries. The right common iliac artery, right internal iliac artery and right external iliac arteries are widely patent without evidence of significant occlusive or aneurysmal disease. Right femoral/popliteal arteries: Mild atherosclerosis of the right common femoral deep and superficial femoral arteries. The right common femoral artery is widely patent without evidence of significant occlusive or aneurysmal disease. The proximal right deep and superficial femoral arteries are widely patent without evidence of significant occlusive or aneurysmal disease. Left iliac arteries: Moderate atherosclerosis of the left common iliac artery. Moderate atherosclerosis of the left external iliac and left internal iliac arteries. The left common iliac artery, left internal iliac artery and left external iliac arteries are widely patent without evidence of significant occlusive or aneurysmal disease. Left femoral/popliteal arteries: The left common femoral artery is widely patent without evidence of significant occlusive or aneurysmal disease. The proximal left deep and superficial femoral arteries are widely patent without evidence of significant occlusive or aneurysmal disease. CHEST: Lungs: Severe centrilobular emphysematous changes are present. There is focal consolidation within the left lower lobe of the lung consider pulmonary contusion. Pleural spaces: There is no evidence of pneumothorax. There is a small left pleural effusion present. Heart: The right ventricular to left ventricular ratio is normal measuring 0.8. Coronary arteries: There is moderate atherosclerotic calcification of the coronary arteries. ABDOMEN AND PELVIS: Liver: There are no focal liver lesions present. Gallbladder and bile ducts: There are calcified gallstones present within the gallbladder lumen. There is mild thickening of the gallbladder wall. There is small amount of pericholecystic fluid and possible thickening of the gallbladder wall. Consider calculus cholecystitis. Possible small amount high attenuation fluid within the gallbladder lumen. Consider hemorrhage within the gallbladder lumen. Pancreas: No mass. No ductal dilation. Spleen: There is of severe laceration of the spleen with a large subcapsular hematoma there is mixed attenuation the perisplenic fluid present this is consistent with a grade 3 to grade 4 laceration of the spleen. Adrenal glands: Unremarkable. No mass. Kidneys and ureters: There are large simple appearing cysts seen within the left kidney the largest measuring approximately 8.4 cm. No follow-up indicated. No evidence of left hydronephrosis or left renal calculi. There is a 2 mm inferior pole right renal calculus present. This is nonobstructing. There are multiple sub cm cysts seen within the right kidney. No follow-up indicated. Stomach and bowel: Possible mild thickening of the proximal duodenal wall consider hematoma.. No obstruction. No mucosal thickening. Intraperitoneal space: There is a large attenuation fluid collection present within the pelvis measuring 7.1 x 8.1 x 4.4 cm consistent with a large amount of free peritoneal hemorrhage. No evidence of free air within the abdomen. Urinary bladder: The bladder is normal. There is a 5 mm calculus present within the bladder lumen. No evidence left or right renal hydronephrosis. This calculus was present on the prior study 11/30/2022. Reproductive: The prostate gland demonstrates calcification and moderate nonspecific enlargement. The seminal vesicles are normal. Lymph nodes: Mild adenopathy present within the mediastinum. Bones/joints: No definitive rib fractures are identified. The skeletal structures and soft tissues show no evidence of fracture or other acute processes. There is fractures of the transverse processes of the lumbar spine. There is a fracture of the transverse process on the right at L3 there is a fracture of the transverse process on the right at L4 and there is a fracture of the transverse process on the left at L5. There may be a nondisplaced fracture of the sacral ala on the left. Soft tissues: There appears to be a small left chest wall hematoma. Other findings: No evidence of significant mesenteric occlusive arterial disease. Mild stenosis without evidence of flow-limiting stenosis present within the common iliac and external iliac arteries bilaterally. IMPRESSION: 1. There is of severe laceration of the spleen with a large subcapsular hematoma there is mixed attenuation the perisplenic fluid present this is consistent with a grade 3 to grade 4 laceration of the spleen. While no definitive focal active hemorrhage is identified at this time, there is a considerable amount of high attenuation material in the perisplenic region as well as within the pelvis highly concerning for subacute hemorrhage. 2. There is a large attenuation fluid collection present within the pelvis measuring 7.1 x 8.1 x 4.4 cm consistent with a large amount of free peritoneal hemorrhage. 3. There are calcified gallstones present within the gallbladder lumen. There is mild thickening of the gallbladder wall. There is small amount of pericholecystic fluid and possible thickening of the gallbladder wall. Consider calculus cholecystitis. 4. Possible small amount high attenuation fluid within the gallbladder lumen. Consider hemorrhage within the gallbladder lumen. 5. Possible mild thickening of the proximal duodenal wall consider hematoma.. 6. There is no evidence of filling defects within the pulmonary arterial circulation to suggest pulmonary embolism. 7. There is a small left pleural effusion present. 8. There is a fracture of the transverse process on the right at L3 there is a fracture of the transverse process on the right at L4 and there is a fracture of the transverse process on the left at L5. 9. There may be a nondisplaced fracture of the sacral ala on the left. 10. Mild stenosis without evidence of flow-limiting stenosis present within the common iliac and external iliac arteries bilaterally. 11. There is a 5 mm calculus present within the bladder lumen. No evidence left or right renal hydronephrosis. This calculus was present on the prior study 11/30/2022. 12. No evidence of significant mesenteric occlusive arterial disease. 13. Mild stenosis without evidence of flow-limiting stenosis present within the common iliac and external iliac arteries bilaterally. Thank you for allowing us to participate in the care of your patient. Dictated and Authenticated by: Bon López MD 12/08/2022 9:04 PM Eastern Time ([place]) Critical Care Time Critical Care Time Critical Care Time: Yes Total Critical Care Time: 45 Attestation: Upon my evaluation, this patient had a high probability of imminent or life-threatening deterioration, which required my direct attention, intervention, and personal management. I have personally provided 45 minutes of critical care time exclusive of time spent on separately billable procedures. Time includes review of laboratory data, radiology results, discussion with consultants, and monitoring for potential decompensation. Interventions were performed as documented. Sign Out Sign Out Data: Sign Out Comment: fell earlier, had the two cat scans second of which was unremarkable. Since being home lethargic and not able to get out of bed. EMS reported a temp of 101, afebrile here. Lungs rhonchorous. Pending labs, repeat ct head, xray and also reassessment after solumedrol and duoneb. Suspect partially due to concussion Last updated by Theodore Loja MD at 12/08/22 19:05 Discharge Plan Disposition Patient Disposition: Admit to [facility] Condition: Good Condition: Stable Discharge Details Chief Complaint: AMS/LOC Clinical Impression: Comfort measures only status, Lethargy, Fall, Spleen laceration, Acute cholecystitis, Bleeding in brain, Abdominal pain Primary Care Provider: Peter Boone ED Provider: Per Cullen Home Meds and New Rx's Prescriptions: No Action albuterol sulfate 90 mcg/actuation HFA aerosol inhaler 2 puff inhalation Q6H PRN (Reason: shortness of breath or wheezing) Qty: 8.5 12RF Trelegy Ellipta 100-62.5-25 mcg blister with device 1 inh inhalation DAILY Qty: 60 5RF propranolol 120 mg capsule,extended release 24 hr 120 mg PO DAILY cholecalciferol (vitamin D3) 50 mcg (2,000 unit) capsule 50 mcg PO DAILY primidone 250 mg tablet 300 mg PO TID Qty: 270 acetaminophen 500 mg Tablet 650 mg PO TID PRN PRNQty: 0 0RF
[2022-12-08] MEDS: Tranexamic Acid 1,000 MG/10 ML VIAL 1000 MG IVP (22:24)
[2022-12-09] MEDS: MORPHine 10 MG/ML VIAL 2 MG IVP (01:59)
[2022-12-09 06:34] LABS: HCT 28.3 % (40.0-50.0); HGB 9.3 g/dL (13.5-17.5); MCH 29.3 pg (27.0-33.0); MCHC 32.9 % (32.0-36.0); MCV 89 fL (80-95); MPV 9.5 fL (8.0-11.0); Platelet Count 297 10^3/uL (130-400); RBC 3.17 10^6/uL (4.36-5.78); RDW 17.4 % (11.8-14.1); RDW-SD 52.8 fL; WBC 6.11 10^3/uL (4.4-10.8)
[2022-12-09 06:44] LABS: INR 1.1 (0.9-1.1); Prothrombin Time 10.7 sec (9.3-11.0)
[2022-12-09 06:59] LABS: ALT 24 U/L (16-63); AST 32 U/L (15-37); Albumin 2.4 g/dL (3.4-5.0); Alkaline Phosphatase 104 U/L (46-116); Anion Gap 8.2 mmol/L (3-11); BUN 19 mg/dL (7-18); Bilirubin, Total 0.6 mg/dL (0.2-1.0); CO2 27.8 mmol/L (21.0-32.0); CREATININE 0.9 mg/dL (0.70-1.30); Calcium 8.7 mg/dL (8.5-10.1); Chloride 104 mmol/L (98-107); Estimated GFR 89.07 (mL/min/1.73m2); Glucose 91 mg/dL (74-106); Potassium 4.4 mmol/L (3.5-5.1); Sodium 140 mmol/L (136-145); Total Protein 7.1 g/dL (6.4-8.2)
[2022-12-09 07:28] VITALS: BP 120/75; PULSE 84; RESP 20; TEMP 37.7; O2SAT 97
[2022-12-09 13:02] VITALS: TEMP 37.7
[2022-12-09] MEDS: HYDROmorphone 50 MG in Normal Saline 245 ML IV (13:02)
[2022-12-09 13:07] VITALS: TEMP 37.7; O2SAT 92
[2022-12-09 13:21] VITALS: TEMP 37.7
[2022-12-09] MEDS: Acetaminophen 325 MG TAB PO (13:21)
[2022-12-09] MEDS: Normal Saline Flush 10 ML SYR IVP (13:22)
[2022-12-09 19:25] VITALS: BP 112/68; PULSE 77; RESP 16; TEMP 37.8; O2SAT 93
[2022-12-09] MEDS: Budesonide/Formoterol 80/4.5 6.9 GM 60 PUFF INH IH (19:54)
--- NOTE | 2022-12-09 19:55 | W.PM.PROGNOT ---
Date of Service Date of service: 12/09/22 Time of Service: 19:55 Assessment and Plan Assessment and plan (1) Spleen laceration: Start date: 12/08/22 Status: Acute Assessment and plan: traumatic. Patient chose to go on comfort measures. We will focus on symptom management with hydromorphone drip, prn ativan, etc. Qualifiers: Encounter type: subsequent encounter Qualified Code(s): S36.039D - Unspecified laceration of spleen, subsequent encounter (2) Subdural hematoma: Status: Acute Assessment and plan: As above (3) COVID-19: Start date: 12/08/22 Status: Acute Assessment and plan: Continue symptomatic tx. (4) Acute blood loss anemia: Start date: 12/08/22 Status: Acute Assessment and plan: No longer checking bloodwork. (5) Fall as cause of accidental injury at home as place of occurrence: Start date: 12/08/22 Status: Acute Assessment and plan: As above. Qualifiers: Encounter type: subsequent encounter Qualified Code(s): W19.XXXD - Unspecified fall, subsequent encounter; Y92.009 - Unspecified place in unspecified non-institutional (private) residence as the place of occurrence of the external cause (6) Laceration of brow without complication: Start date: 12/08/22 Status: Acute Assessment and plan: Repaired with sutures. Continue wound care, keep clean and dry. Qualifiers: Encounter type: initial encounter Qualified Code(s): S01.81XA - Laceration without foreign body of other part of head, initial encounter (7) Essential tremor: Status: Chronic Assessment and plan: Does not appear to be his acute issue at this time. Meds are on hold. (8) Comfort measures only status: Start date: 12/08/22 Status: Acute Assessment and plan: Patient had advanced directives but no COLST form which will be addressed with patient care consultation in the morning. For now he will be placed on [employer] measures to where he can be in a room with family visiting being end-of-life. (9) DVT prophylaxis: Status: Acute Assessment and plan: Not required in a patient on comfort measures. Subjective Subjective Interval history since last seen: Patient resting when I came to see him. I chose not to wake him up since he is on comfort measures. He is comfortable on the dilaudid infusion. Exam Narrative Exam Narrative: General: Elderly male who is resting comfortably in bed HEENT: eyes closed Heart: not auscultated Lungs: nonlabored breathing Abdomen: nondistended Extremities: covered in blankets Objective Last Vital Signs Temp 37.8 C H 12/09/22 19:25 Pulse 77 12/09/22 19:25 Resp 16 12/09/22 19:25 BP 112/68 12/09/22 19:25 Pulse Ox 93 12/09/22 19:25 Laboratory Results - last 24 hr 12/08/22 12/08/22 12/09/22 21:12 21:12 06:06 WBC RBC Hgb Hct MCV MCH MCHC RDW Plt Count MPV PT 10.7 INR 1.1 Sodium Potassium Chloride Carbon Dioxide Anion Gap BUN Creatinine Est GFR (CKD-EPI 2020) Glucose Calcium Total Bilirubin AST ALT Alkaline Phosphatase Troponin I < 50 Total Protein Albumin Patient ABO/Rh A Positive Antibody Screen NEGATIVE Crossmatch See Detail 12/09/22 12/09/22 06:06 06:06 WBC 6.11 RBC 3.17 L Hgb 9.3 L Hct 28.3 L MCV 89 MCH 29.3 MCHC 32.9 RDW 17.4 H Plt Count 297 MPV 9.5 PT INR Sodium 140 Potassium 4.4 Chloride 104 Carbon Dioxide 27.8 Anion Gap 8.2 BUN 19 H Creatinine 0.9 Est GFR (CKD-EPI 2020) 89.07 Glucose 91 Calcium 8.7 Total Bilirubin 0.6 AST 32 ALT 24 Alkaline Phosphatase 104 Troponin I Total Protein 7.1 Albumin 2.4 L Patient ABO/Rh Antibody Screen Crossmatch Time Spent with Patient Time Spent with Patient: <25 minutes Time was spent: preparing to see the patient(eg.review tests), obtaining and/or reviewing separately otained hiistory, ordering medications,tests, procedures, referring, communicating with other health intensive care anaesthetist, indepentently interpreting results, counseling the patient and care coordination
[2022-12-10 04:25] VITALS: BP 109/70; PULSE 87; RESP 18; TEMP 37.9; O2SAT 94
[2022-12-10 07:01] VITALS: PULSE 83; RESP 21; O2SAT 93
[2022-12-10] MEDS: Budesonide/Formoterol 80/4.5 6.9 GM 60 PUFF INH IH ×2 (07:49→20:02)
[2022-12-10] MEDS: Tiotropium Bromide-Respimat 10 PUFF INH 2 PUFF IH (07:49)
[2022-12-10 07:51] VITALS: O2SAT 93
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
--- NOTE | 2022-12-10 12:53 | W.PALLCONSUL ---
History of Present Illness Narrative: First evaluated in ED November 30, 2022 after falling 10 feet off a ladder. Right parietal bleed and small subarachnoid hemorrhage, splenic contusion and nondisplaced left L5 transverse process fracture diagnosed. Discharge 12/03. Return to the ER 12/08 complaining of recurrent falls. Noted to have anemia which was found to be from continued splenic blood. He also had a significant subarachnoid hemorrhage and a subdural over the frontal lobe. At that point he wanted to go home to but they asked him to stay in the hospital for further treatment. He was admitted on comfort measures only, with plans for palliative care team to see him today. In the hospital for 2 days. Current medications include his usual COPD/asthma inhalers, and hydromorphone drip currently at 0.2 mg/h Care Team: Primary Care physician: Yareli Wright HX: Impression of currents health status: What bothers you the most: What worries you the most: Current information preferences: Function: Ambulation: ADLs: iADLs: Hearing: Vision: Spiritual history: Palliative review of systems: Pain: Dyspnea: GI symptoms: Appetite: Depression: Anxiety: None Emotional Distress: Spiritual/Existential Distress: Labs: Cr: Liver panel: Albumin: CBC: Advanced Care Planning: Advanced Directive: 2017 advanced directive on file. Maria Esther Arteaga is healthcare agent. Only wants treatment directed towards discomfort. If heart stops does not want CPR does not want a feeding tube. Does not want antibiotics or medication to fight infection. Health Care Agent: COLST: Limitations: PFSH All Active Problems (Updated 12/09/22 @ 19:59 by Lexie Mayer MD) Subdural hematoma (Acute) DVT prophylaxis (Acute) COVID-19 (Acute) Comfort measures only status (Acute) Spleen laceration (Acute) Acute cholecystitis (Acute) Bleeding in brain (Acute) Abdominal pain (Acute) Acute blood loss anemia (Acute) Ruptured spleen (Acute) Laceration of brow without complication (Acute) Lethargy (Acute) Fall (Acute) Minor contusion of spleen (Acute) Subarachnoid bleed (Acute) Lumbar transverse process fracture (Acute) Nicotine dependence, cigarettes, uncomplicated (Acute) Constipation (Acute) ROE and COPD overlap syndrome (Acute) Rib pain on right side (Acute) Fall as cause of accidental injury at home as place of occurrence (Acute) Anemia, iron deficiency (Acute) Weight loss, abnormal (Acute) Tubular adenoma (Acute 01/29/16) Mass of vallecula (Acute) Pharyngeal dysphagia (Acute) Aspiration into lower respiratory tract (Acute) Vocal cord dysfunction (Acute) Vocal cord paralysis (Acute) Ribs, multiple fractures (Acute 06/05/13) Ribs 7 through 9 Atelectasis (Acute 06/05/13) COPD (chronic obstructive pulmonary disease) (Chronic) Jun 24, 2012 PFT's with FEV1 60% predicted, severe obstrtuctive disease with no significatn bronchodilator response. Tobacco abuse (Chronic) Ongoing tobacco use, nicotiune replacement not helpful, Chntix helped in the past but could not afford. PFT's performed 07/03/12 with REV1 60% predicted, severe obstrructive disease with no significant bronchodilator response. Sleep apnea (Chronic) Treated with CPAP. Essential tremor (Chronic) Chronic back pain (Chronic) Weight loss (Acute) Dysphagia (Acute) Hyperlipidemia (Chronic) Medical History Chronic low back pain Cigarette smoker Colon polyps 01/08/19 w/ Dr Marya Stinson, [facility], tubular adenoma, repeat 3 yrs 01/29/16 w/ Dr. Aleyda Irizarry, 4 tubular adenoma's, repeat 3 years COPD (chronic obstructive pulmonary disease) Hearing loss History of broken collarbone right collarbone fx with hardware- per pt 6 years ago Polyuria Shoulder pain, left Sleep apnea Tremor Surgical History Hx of surgical procedure clavicle repair Hx of thumb surgery 1973. Hardware in place Family History Mother Colon cancer Social History Smoking/Tobacco Use Status: Former Tobacco Use Tobacco: How many years used: 50 Smoking risk assessment performed?: Yes Alcohol Intake: never Drug use: Never Substance use type: does not use Details: QUIT SMOKING A MONTH AGO, CURRENTLY USING CHANTIX TO QUIT Do you feel safe at home: Yes (unable to ask privately) Do you feel safe in your relationship?: Yes Additional Social history: Results Last Vital Signs Temp 37.9 C H 12/10/22 04:25 Pulse 83 12/10/22 07:01 Resp 21 12/10/22 07:01 BP 109/70 12/10/22 04:25 Pulse Ox 93 12/10/22 07:51 Labs 12/09/22 06:06 12/09/22 06:06
[2022-12-10] MEDS: Normal Saline Flush 10 ML SYR IVP (14:51)
[2022-12-10] MEDS: Glycopyrrolate 0.2 MG/1 ML VIAL IVP (14:51)
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
--- NOTE | 2022-12-10 16:39 | PGE_ITS ---
Date of Service Date of service: 12/10/22 Time of Service: 16:39 Assessment and Plan Assessment and plan (1) Spleen laceration: Start date: 12/08/22 Status: Acute Assessment and plan: patient says that he will consider surgery but wants to think about it. I will re-consult surgery on this patient tomorrow morning. I will also re-image his abdomen w/ repeat CT scan non-contrast to assess stability of his splenic rupture. Qualifiers: Encounter type: subsequent encounter Qualified Code(s): S36.039D - Unspecified laceration of spleen, subsequent encounter (2) Subdural hematoma: Status: Acute Assessment and plan: stable per repeat CT head. No surgical intervention needed. (3) COVID-19: Start date: 12/08/22 Status: Acute Assessment and plan: Continue symptomatic tx. (4) Acute blood loss anemia: Start date: 12/08/22 Status: Acute Assessment and plan: I have repeat his hemoglogin and it has remained stable at 9.9 gm (5) Fall as cause of accidental injury at home as place of occurrence: Start date: 12/08/22 Status: Acute Assessment and plan: As above. Qualifiers: Encounter type: subsequent encounter Qualified Code(s): W19.XXXD - Unspecified fall, subsequent encounter; Y92.009 - Unspecified place in unspecified non-institutional (private) residence as the place of occurrence of the external cause (6) Laceration of brow without complication: Start date: 12/08/22 Status: Acute Assessment and plan: Repaired with sutures. Continue wound care, keep clean and dry. Qualifiers: Encounter type: initial encounter Qualified Code(s): S01.81XA - Laceration without foreign body of other part of head, initial encounter (7) Essential tremor: Status: Chronic Assessment and plan: Does not appear to be his acute issue at this time. Meds are on hold. (8) DVT prophylaxis: Status: Acute Assessment and plan: clinically not indicated d/t splenic rupture. will use SCD Subjective Subjective Interval history since last seen: Patient was admitted for control of his abdominal pain secondary to splenic rupture. 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 Dr. Valdovinos from palliative care saw the patient (see her consult note) and Dr. Boone presented to the hospital to have discussion w/ the patient regarding code status, goals of care and he also spoke w/ me. The patient has had a advance directive dating back at least 3 years in which he expressed desire for DNR/DNI status. He was hospitalized 11/30 to 12/02/22 after sustaining fall from ladder and sustaining small right parietal SDH, lumbar nondisplace transverse fractures and splenic contusion. He was stable and not having any significant pain but presented again to the ED on 12/08 after another fall at home. Follow up CT head showed stability in his right SDH and patient requested to return home. AFter observation for several hours and repeat CT showing no changes, he was discharge home only to return later on 12/08 w/ increasing abdominal pain. Repeat CT abdomen and pelvis demonstrated high grade laceration of the spleen w/ perisplenic fluid collection, and hyperdense fluid/blood collection in the pelvis, no rib fractures, but fractures of the right transverse L3, L4, and left L5. Patient's pain has been controlled w/ dilaudid drip at rate of 0.3 mg/hr. 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 However, he has no end of life diagnosis, i.e., cancer, end stage COPD or CHF. His splenic rupture is potential treatable however he is uncertain of whether or not wants surgery. He tells me that he wants to think about surgery. After speaking w/ Dr. Boone and Dr. Valdovinos about the patient's conditions and prior advanced dirctive requests, he should remain DNR/DNI and I confirmed this with him. As such we will stop MIDDLE SCHOOL DIRECTOR orders but continue w/ iv dilaudid as this seems to be controlling his pain. Once he is taking oral well then we can switch to oral narcotic pain meds. Exam Narrative Exam Narrative: Klever is lying in bed w/ his eyes shut, however, he opens his eyes and looks at me when I talk to him. Communication is somewhat difficult d/t his being [place] and my needing to wear a whiting w/ air papper d/t his COVID status Lungs: clear Heart: RRR Abdomen: nondistended w/ active bowel sounds, but tender particularly over LUQ, he has guarding Objective Last Vital Signs Temp 37.9 C H 12/10/22 04:25 Pulse 83 12/10/22 07:01 Resp 21 12/10/22 07:01 BP 109/70 12/10/22 04:25 Pulse Ox 93 12/10/22 07:51 Time Spent with Patient Time Spent with Patient: 35-49 minutes Time was spent: ordering medications,tests, procedures, referring, communicating with other health career discovery teacher (Dr. Boone and Dr. Valdovinos), indepentently interpreting results, counseling the patient and care coordination
[2022-12-10 19:15] LABS: HCT 30.4 % (40.0-50.0); HGB 9.9 g/dL (13.5-17.5)
[2022-12-10 20:04] VITALS: BP 96/62; PULSE 88; RESP 16; TEMP 36; O2SAT 93
[2022-12-10 20:24] VITALS: TEMP 36
[2022-12-10] MEDS: ACETAMINOPHEN 1,000 MG/100 ML BTL 400 MG IVPB (20:24)
[2022-12-10 23:06] VITALS: BP 96/63; PULSE 88; RESP 16; TEMP 36.4; O2SAT 93
[2022-12-11 00:39] VITALS: O2SAT 91
[2022-12-11] MEDS: ACETAMINOPHEN 1,000 MG/100 ML BTL 400 MG IVPB ×2 (03:56→21:03)
[2022-12-11] MEDS: Normal Saline Flush 10 ML SYR IVP (03:58)
[2022-12-11] MEDS: Lactated Ringers 1,000 ML 125 ML IV (05:06)
--- NOTE | 2022-12-11 07:00 | DI.CT_ITS ---
Exam(s) CT ABDOMEN PELVIS WO EXAM: CT ABDOMEN PELVIS WO CLINICAL HISTORY: splenic rupture, follow up. TECHNIQUE: Imaging Protocol: Axial computed tomography images with coronal and sagittal reformatted images were created and reviewed. Oral: no COMPARISON: CT CHEST ABD PELVIS WITH CONTRAST from 01/07/[address] CHEST PE ABD PELVIS W from 12/08/2022 FINDINGS: Exam is limited by motion. ABDOMEN: Lung Bases: There is apparent consolidation at the left lung base. Tiny bilateral pleural effusions , left greater than right. right basilar atelectasis versus infiltrate. There are left lower rib fr actures, mildly displaced. A right lower rib fracture is also seen. Liver: Normal density. No measurable mass. Gallbladder and biliary tract: Large gallstone. Pancreas: Normal density, no abnormal calcifications or inflammatory process. Spleen: Splenic laceration not as well visualized due to lack of contrast. Stable size Katherin splenic h ematoma Kidneys: Normal size, contour and axis. Nonobstructing stone lower pole right kidney. Large left ollie l cysts again noted. No suspicious masses seen. Adrenal glands: No masses seen. Lymph nodes: Within normal limits. Abdominal Aorta: Abdominal portion non-dilated. Atherosclerotic changes. Bones: Transverse process fractures on the right at L3 and L4. Nondisplaced transverse process fractu re of L5 on the left. PELVIS: Bladder: Mantilla catheter. Bowel: No obstruction or bowel wall thickening. Peritoneal cavity: Hemorrhagic material again noted in the pelvis appears to have decreased slightly from the prior exam. Reproductive organs: Enlarged prostate. Bones: Stable circumscribed low-density lesion in the left iliac crest from 2013. IMPRESSION: Stable appearance of perisplenic hematoma. Mild decrease in mount of pelvic peritoneal hemorrhage. No new findings. RADIATION DOSE DELIVERED: 913.02mGy.cm Total DLP DATA REPOSITORY: All CT scans at this facility are submitted to the National Radiology Data Registry (NRDR) Dose Index Registry (DIR) with the [employer] (ACR). RADIATION OPTIMIZATION: All CT scans at this facility use at least one of these dose optimization te chniques: automated exposure control; mA and/or kV adjustment per patient size (includes targeted exa ms where dose is matched to clinical indication); or iterative reconstruction.
[2022-12-11 07:11] LABS: Abs Immature Grans 0.03 10^3/uL (0.0-0.06); Absolute Basophil Count 0.03 10^3/uL (0.0-0.2); Absolute Eosinophil Count 0.01 10^3/uL (0.0-0.7); Absolute Lymphocyte Count 0.55 10^3/uL (1.2-3.4); Absolute Monocyte Count 0.79 10^3/uL (0.1-0.8); Absolute Neutrophil Count 6.02 10^3/uL (1.2-6.7); Basophils % 0.4; Eosinophils % 0.1; HCT 31.4 % (40.0-50.0); Immature Grans % 0.4; Lymphocytes % 7.4; MCH 28.8 pg (27.0-33.0); MCHC 31.8 % (32.0-36.0); MCV 91 fL (80-95); MPV 8.7 fL (8.0-11.0); Monocytes % 10.6; Neutrophils % 81.1; Platelet Count 340 10^3/uL (130-400); RBC 3.47 10^6/uL (4.36-5.78); RDW 17.7 % (11.8-14.1); RDW-SD 57.4 fL; WBC 7.43 10^3/uL (4.4-10.8)
[2022-12-11 07:23] VITALS: BP 92/61; PULSE 82; RESP 16; TEMP 36.3; O2SAT 91
[2022-12-11 07:32] LABS: ALT 27 U/L (16-63); AST 49 U/L (15-37); Albumin 2.3 g/dL (3.4-5.0); Alkaline Phosphatase 133 U/L (46-116); Anion Gap 11.2 mmol/L (3-11); BUN 28 mg/dL (7-18); CO2 26.8 mmol/L (21.0-32.0); Calcium 8.9 mg/dL (8.5-10.1); Chloride 102 mmol/L (98-107); Estimated GFR 78.49 (mL/min/1.73m2); Glucose 66 mg/dL (74-106); Potassium 4.4 mmol/L (3.5-5.1); Sodium 140 mmol/L (136-145); Total Protein 7.1 g/dL (6.4-8.2)
[2022-12-11 08:06] VITALS: O2SAT 92
--- NOTE | 2022-12-11 11:00 | CMPROGNOTE_ITS ---
Date of service: 12/11/22 Time of Service: 11:00 Care Management Progress Note Progress Note Text Progress Note Text: S/O: Patient remains on covid precautions, CM is unable to meet with him via phone due to hearing loss. Per provider, he is now considering surgery but wants to think about it, Surgical will be re-consulted. Palliative is following. CM will continue to follow. A: 77 year old male admitted to [facility] on 12/08/22 for Spleen laceration, Subdural hematoma, COVID-19 P: Edward was readmitted on 12/08/22 and is now considering surgery, instead of comfort care. Palliative is following, COLST is on file. Discharge planning continues based on goals of care and prognosis.
--- NOTE | 2022-12-11 14:17 | PGE_ITS ---
Date of Service Date of service: 12/11/22 Time of Service: 14:17 Assessment and Plan Assessment and plan (1) Spleen laceration: Start date: 12/08/22 Status: Acute Assessment and plan: It is unclear from my interview with the patient as to whether he fully appreciates the severity of his intra-abdominal injury. This point I will dis continue the hydromorphone drip and put him on prn oral narcotic analgesics of a lesser potency and see if his mental status improves. From talking with Dr. Valdovinos and Dr. Boone seems that this patient in the past is made up his mind he does not want aggressive heroic measures to prolong his life in the past he has been reluctant to seek out medical care and prefers to be left alone. His subdural hematoma is stable and no surgical intervention is needed however I think his odds of survival with a ruptured spleen without surgical intervention are not favorable. I have asked Dr. Bruce Kang to weigh in on his condition. If the patient chooses not to have surgery then I think that we should pursue palliative care and avoid further aggressive diagnostic work-up or intervention. In light of his dysphagia we have asked for an STOVE MECHANIC consult. Professional time spent interviewing and examining patient, discussion of goals of care with hospital team (care management, nursing and consulting professionals) was 30 minutes. Qualifiers: Encounter type: subsequent encounter Qualified Code(s): S36.039D - Unspecified laceration of spleen, subsequent encounter (2) Subdural hematoma: Status: Acute Assessment and plan: stable per repeat CT head. No surgical intervention needed. (3) Dysphagia: Status: Acute Assessment and plan: Obtain STOVE MECHANIC consult. Diet downgraded to pur?ed with thickened liquids. All feedings to be supervised. Monitor for aspiration. (4) COVID-19: Start date: 12/08/22 Status: Acute Assessment and plan: He presented to the ED on 12/08 and tested positive for SARS-COV2; unclear as to the timing of onset of symptoms but will give him the benefit of doubt and go ahead and treat w/ Paxlovid to try to prevent complications form COVID-19. (5) Acute blood loss anemia: Start date: 12/08/22 Status: Acute Assessment and plan: Repeat hemoglobin 10 g today. Does not require transfusion at this point. (6) Fall as cause of accidental injury at home as place of occurrence: Start date: 12/08/22 Status: Acute Assessment and plan: As above. Qualifiers: Encounter type: subsequent encounter Qualified Code(s): W19.XXXD - Unspecified fall, subsequent encounter; Y92.009 - Unspecified place in unspecified non-institutional (private) residence as the place of occurrence of the external cause (7) Laceration of brow without complication: Start date: 12/08/22 Status: Acute Assessment and plan: Repaired with sutures. Continue wound care, keep clean and dry. Qualifiers: Encounter type: initial encounter Qualified Code(s): S01.81XA - Laceration without foreign body of other part of head, initial encounter (8) Essential tremor: Status: Chronic Assessment and plan: Does not appear to be his acute issue at this time. Meds are on hold. (9) DVT prophylaxis: Status: Acute Assessment and plan: clinically not indicated d/t splenic rupture. will use SCD Subjective Subjective Interval history since last seen: Per nursing staff patient has had difficulty swallowing having coughing and choking spells after eating. We have requested speech language pathology consult to evaluate for dysphagia. I have downgraded his diet to pur?ed with thickened liquids. Patient remains on low-dose Dilaudid drip for pain control when asked if he has any pain he denies any however during his abdominal exam he had significant tenderness in his left upper quadrant. I spoke with Dr. Bruce Kang to reconsult general surgery regarding his recommendations regarding the ruptured spleen. When I pressed the patient about whether or not he wants to have surgery he would not give me an answer yes or no but indicated that if that is the only way to get people to leave him the F*CK alone then he said he guesses he will have it done. Exam Narrative Exam Narrative: Klever is lying in bed requesting a drink of water. I let him have a sip of water he seemed to handle this without coughing or choking. Lungs are clear to auscultation Heart is regular rate and rhythm Abdomen soft, he is tender in the left upper quadrant he has active bowel sounds. He has guarding. Objective Last Vital Signs Temp 36.3 C L 12/11/22 07:23 Pulse 82 12/11/22 07:23 Resp 16 12/11/22 07:23 BP 92/61 L 12/11/22 07:23 Pulse Ox 92 05/31/23 08:06 Laboratory Results - last 24 hr 12/10/22 12/11/22 12/11/22 19:05 06:44 06:44 WBC 7.43 RBC 3.47 L Hgb 9.9 L 10.0 L Hct 30.4 L 31.4 L MCV 91 MCH 28.8 MCHC 31.8 L RDW 17.7 H Plt Count 340 MPV 8.7 Immature Gran % 0.4 Neutrophils % 81.1 Lymphocytes % 7.4 Monocytes % 10.6 Eosinophils % 0.1 Basophils % 0.4 Nucleated RBC % 0.0 Absolute Neutrophils 6.02 Absolute Lymphocytes 0.55 L Absolute Monocytes 0.79 Absolute Eosinophils 0.01 Absolute Basophils 0.03 Sodium 140 Potassium 4.4 Chloride 102 Carbon Dioxide 26.8 Anion Gap 11.2 H BUN 28 H Creatinine 1.0 Est GFR (CKD-EPI 2020) 78.49 Glucose 66 L Calcium 8.9 Total Bilirubin 1.0 AST 49 H ALT 27 Alkaline Phosphatase 133 H Total Protein 7.1 Albumin 2.3 L Time Spent with Patient Time Spent with Patient: 25-34 minutes Time was spent: preparing to see the patient(eg.review tests), ordering medications,tests, procedures, indepentently interpreting results, counseling the patient and care coordination
--- NOTE | 2022-12-11 15:07 | NUR.NOTE ---
Ani Elizabeth RN was in the chart re: Stephanie and Theodore RN asked her to help them tally the titratiuon window on discontinued hydromorphone drip.Nursing Note:
--- NOTE | 2022-12-11 16:20 | PDOC.STREC ---
Date of service: 12/11/22 Time of Service: 12:15 Speech Therapy Recommendations Report ST Recommendations: METAL CANS SUPERVISOR NON-TREATMENT NOTE HPI: Patient is a 77 y/o M with COPD, ROE, who presented to ED on 11/30/22 after falling 10 feet off a ladder, noted with R parietal bleed and small subarachnoid hemorrhage, splenic contusion and nondisplaced left L5 fracture. He was discharged, and suffered another fall several days later. Patient was requesting to go home, not wanting further medical treatment, but was admitted for further treatment. Later made CALKER per patient's request. Per surgery, there is likely greater than 50% chance of survival without surgery. Palliative is involved. Per nursing patient has been with increasing coughing with solid food intake, but staff has mixed report of his tolerance with liquids. As a result of this, MD put patient on Puree/Mildly Thick Liquids and consulted METAL CANS SUPERVISOR. Patient is also COVID positive. Per chart review, in 2019 and early 2020 there was some concern regarding vallecular/base of tongue mass and dysphagia as well as a 30lb unintentional weight loss. Ultimately it was decided that the mass was not likely malignant and no further follow-up was performed after CT HEAD and direct laryngoscopy by [facility]. Patient also previously followed by Dr. Belle. ALISSA Deutsch performed MBSS May 2020 and found significant vallecular residue and poor pharyngeal clearance of viscous and solid textures, appearing due to reduced hyo-laryngeal excursion and epiglottic inversion as well as reduced pharyngeal stripping wave. No aspiration occurred. Small hypertrophy also noted at UES causing pyriform stasis, but residue cleared with saliva swallows. She recommended puree or minced/moist diet and thin liquids. SUBJECTIVE/OBJECTIVE: Attempting to see patient during lunch this date, at time of my arrival he had eaten 5 bites of pureed food items with nursing and then refused further trials. This METAL CANS SUPERVISOR attempting to provide additional trials for purposes of assessment but patient refused any bites. He did take 3 sips of ice water upon my prompting, with mild delayed throat clear after consecutive sips. Attempting to complete oral-motor/peripheral assessment, but patient wishing to be left alone. I was able to glimpse his tongue which had a significant white coating but was unable to get the patient to agree to any further assessment, even after assuring he was able to hear my questions. Per MANAGEMENT PROFESSIONALS present, he has been very sleepy. RECOMMENDATIONS/PLAN: Per chart review and limited observation, suspect patient may be experiencing worsening baseline dysphagia in setting of deconditioning, fatigue, and ?TBI. Patient has limited willingness at this time to participate in workup or treatment and is unwilling to participate in METAL CANS SUPERVISOR Evaluation this date, though limited observation shows he does appear to tolerate thin liquids in upright position. METAL CANS SUPERVISOR will continue to follow while on unit and attempt to re-evaluate at next available (Friday). Diet recommendation: IDDSI 4 (puree) vs 5 (minced & moist) per patient preference IDSSI 0-thin liquids - SMALL, SINGLE SIPS Risk management: Oral hygiene at least 2x/day and before/after meals. PO intake only while upright; Encourage physical mobility as tolerated. Small bites/sips; Multiple swallows per bolus, follow with thin and/or mildly thick liquid wash and effortful swallow to clear vallecular residue?prior to subsequent bite Take pills 1 at a time; may consider taking pills with pureed texture, if allowed to take with food per medication administration guidelines. May also consider alternate formulations of medications (vs larger tablets/pills) as advised by . PFSH All Active Problems?(Updated 12/10/22 @ 17:45 by Tonia Valdovinos MD) Advanced care planning/counseling discussion (Acute) TBI (traumatic brain injury) (Acute) Palliative care encounter (Acute) Subdural hematoma (Acute) DVT prophylaxis (Acute) COVID-19 (Acute) Comfort measures only status (Acute) Spleen laceration (Acute) Acute cholecystitis (Acute) Bleeding in brain (Acute) Abdominal pain (Acute) Acute blood loss anemia (Acute) Ruptured spleen (Acute) Laceration of brow without complication (Acute) Lethargy (Acute) Fall (Acute) Minor contusion of spleen (Acute) Subarachnoid bleed (Acute) Lumbar transverse process fracture (Acute) 3 vertebraeNicotine dependence, cigarettes, uncomplicated (Acute) Constipation (Acute) ROE and COPD overlap syndrome (Acute) Rib pain on right side (Acute) Fall as cause of accidental injury at home as place of occurrence (Acute) Anemia, iron deficiency (Acute) Weight loss, abnormal (Acute) Tubular adenoma (Acute 01/29/16) Mass of vallecula (Acute) Pharyngeal dysphagia (Acute) Aspiration into lower respiratory tract (Acute) Vocal cord dysfunction (Acute) Vocal cord paralysis (Acute) Ribs, multiple fractures (Acute 06/05/13) Ribs 7 through 9Atelectasis (Acute 06/05/13) COPD (chronic obstructive pulmonary disease) (Chronic) Jun 24, 2012 PFT's with FEV1 60% predicted, severe obstrtuctive disease with no significatn bronchodilator response.Tobacco abuse (Chronic) Ongoing tobacco use, nicotiune replacement not helpful, Chntix helped in the past but could not afford. PFT's performed 07/03/12 with REV1 60% predicted, severe obstrructive disease with no significant bronchodilator response.Sleep apnea (Chronic) Treated with CPAP.Essential tremor (Chronic) Chronic back pain (Chronic) Weight loss (Acute) Dysphagia (Acute) Hyperlipidemia (Chronic) Medical History? Chronic low back pain Cigarette smoker Colon polyps 01/08/19 w/ Dr Marya Stinson, [facility], tubular adenoma, repeat 3 yrs 01/29/16 w/ Dr. Aleyda Irizarry, 4 tubular adenoma's, repeat 3 yearsCOPD (chronic obstructive pulmonary disease) Hearing loss History of broken collarbone right collarbone fx with hardware- per pt 6 years agoPolyuria Shoulder pain, left Sleep apnea Tremor Surgical History? Hx of surgical procedure clavicle repairHx of thumb surgery 1973. [address] in [address] CODING: No charge, unable to complete evaluation. Coding
[2022-12-11 17:15] VITALS: BP 92/61; PULSE 77; RESP 18; TEMP 37.1; O2SAT 93
--- NOTE | 2022-12-11 20:16 | SCONE_ITS ---
Date of service: 12/11/22 Time of Service: 20:16 Assessment and Plan Assessment and plan (1) Spleen laceration: Status: Acute Assessment and plan: Obviously, this is a challenging situation on many levels. As a pertains to his spleen injury, it is difficult to say if this is evolution of the original spleen injury (which would most likely be a splenic arterial pseudoaneurysm with subsequent rupture and rehemorrhage) or if this is a new injury after his second fall. At this point, his hemodynamics are reassuring, and the trend of his hemoglobin at least since the has been stable. In that regards, there is not a strong indication for emergent splenectomy or catheter-based splenic artery embolization. However, his advanced age puts him at risk for failure of nonoperative management, and if it is the case that this is evolution of his original splenic injury, then I certainly have ongoing concerns that he may experience more bleeding moving forward. In that regard, it is very reasonable to consider splenectomy, or catheter-based splenic artery embolization. The real challenge here is that Klever does not seem inclined to give any consideration to these therapies. Certainly, operative splenectomy carries a fair amount of risk in him given his severe deconditioning, COVID infection, and possible coinciding left lower lobe pneumonia. And since I am unable to have a meaningful conversation with him regarding the nature of surgery and the risks associated with it, its not an option at this point. For now, I would repeat the hemoglobin again tomorrow, and I agree with holding any form of chemical VTE prophylaxis or anticoagulant or antiplatelet therapies. I will try to talk to them again tomorrow regarding his options, but if he is unwilling to entertain those conversations, then I suggest transitioning his care to focusing on treatment of pain, anxiety, and honest conversations about his expectations from healthcare moving forward. Qualifiers: Encounter type: subsequent encounter Qualified Code(s): S36.039D - Unspecified laceration of spleen, subsequent encounter History of Present Illness History of Present Illness Chief Complaint: Spleen injury Narrative: Tarango a 77-year-old male who fell from a ladder approximately 11 days ago. He was admitted to the hospital with intracranial hemorrhage and splenic contusion, as well as a L5 transverse process fracture. He was treated according to recommendations from neurosurgery and the trauma team at [facility]. He was discharged from the hospital on December 02. His recovery at home was complicated by some gait dysfunction and imbalance. On the night of the , he experienced a standing level fall, and sustained a laceration to his eyebrow. He came back to the emergency department. The eyebrow laceration was repaired, and a CAT scan of the head suggested some evolution, or perhaps new intracranial hemorrhage. He had no change in his neurologic status. He was observed for several hours, and a repeat CAT scan was unchanged. He was discharged from the emergency department, but returned later that day with chest pain and abdominal pain. At that time, he was diagnosed with SARS Cov 2, and he underwent a CAT scan of the abdomen and pelvis that showed a high-grade splenic injury with no active extravasation. His hemoglobin was found to be 9.9 which was decreased from 12.5 during his previous hospital stay. He was readmitted to the hospital. His SARS-CoV-2 is being treated with Paxlovid. I am consulted for my opinion regarding his spleen injury and definitive treatment. Attempted to meet with the patient around 4 PM. He was noncompliant with most of the interview. He did admit to some abdominal pain. Thinks it might be better compared to his time of admission. He does not have any appetite. After brief conversation, he stopped answering questions, and asked me to come back later. I attempted to meet with him again this evening. He remains noncompliant with most of the history, and is focused mostly on when he will be discharged from the hospital. I did try to explain to him the nature of his spleen injury, its severity, and various treatment options, but I do not think he was very invested in the conversation. [facility] All Active Problems (Updated 12/10/22 @ 17:45 by Tonia Valdovinos MD) Advanced care planning/counseling discussion (Acute) TBI (traumatic brain injury) (Acute) Palliative care encounter (Acute) Subdural hematoma (Acute) DVT prophylaxis (Acute) COVID-19 (Acute) Comfort measures only status (Acute) Spleen laceration (Acute) Acute cholecystitis (Acute) Bleeding in brain (Acute) Abdominal pain (Acute) Acute blood loss anemia (Acute) Ruptured spleen (Acute) Laceration of brow without complication (Acute) Lethargy (Acute) Fall (Acute) Minor contusion of spleen (Acute) Subarachnoid bleed (Acute) Lumbar transverse process fracture (Acute) 3 vertebrae Nicotine dependence, cigarettes, uncomplicated (Acute) Constipation (Acute) ROE and COPD overlap syndrome (Acute) Rib pain on right side (Acute) Fall as cause of accidental injury at home as place of occurrence (Acute) Anemia, iron deficiency (Acute) Weight loss, abnormal (Acute) Tubular adenoma (Acute 01/29/16) Mass of vallecula (Acute) Pharyngeal dysphagia (Acute) Aspiration into lower respiratory tract (Acute) Vocal cord dysfunction (Acute) Vocal cord paralysis (Acute) Ribs, multiple fractures (Acute 06/05/13) Ribs 7 through 9 Atelectasis (Acute 06/05/13) COPD (chronic obstructive pulmonary disease) (Chronic) Jun 24, 2012 PFT's with FEV1 60% predicted, severe obstrtuctive disease with no significatn bronchodilator response. Tobacco abuse (Chronic) Ongoing tobacco use, nicotiune replacement not helpful, Chntix helped in the past but could not afford. PFT's performed 07/03/12 with REV1 60% predicted, severe obstrructive disease with no significant bronchodilator response. Sleep apnea (Chronic) Treated with CPAP. Essential tremor (Chronic) Chronic back pain (Chronic) Weight loss (Acute) Dysphagia (Acute) Hyperlipidemia (Chronic) Medical History Chronic low back pain Cigarette smoker Colon polyps 01/08/19 w/ Dr Marya Stinson, [facility], tubular adenoma, repeat 3 yrs 01/29/16 w/ Dr. Aleyda Irizarry, 4 tubular adenoma's, repeat 3 years COPD (chronic obstructive pulmonary disease) Hearing loss History of broken collarbone right collarbone fx with hardware- per pt 6 years ago Polyuria Shoulder pain, left Sleep apnea Tremor Surgical History Hx of surgical procedure clavicle repair Hx of thumb surgery 1973. [address] in [address] Family History Mother Colon cancer Social History Smoking/Tobacco Use Status: Former Tobacco Use Tobacco: How many years used: 50 Smoking risk assessment performed?: Yes Alcohol Intake: never Drug use: Never Substance use type: does not use Details: QUIT SMOKING A MONTH AGO, CURRENTLY USING CHANTIX TO QUIT Do you feel safe at home: Yes (unable to ask privately) Do you feel safe in your relationship?: Yes Additional Social history: Exam GI Other: His abdomen is soft and nondistended. He is not very tender. Results Last Vital Signs Temp 98.8 F 12/11/22 17:15 Pulse 877 H 12/11/22 17:15 Resp 18 12/11/22 17:15 BP 92/61 L 12/11/22 17:15 Pulse Ox 93 12/11/22 17:15 Labs 12/11/22 06:44 12/11/22 06:44 Labs: Laboratory Results - last 24 hr 12/11/22 12/11/22 06:44 06:44 WBC 7.43 RBC 3.47 L Hgb 10.0 L Hct 31.4 L MCV 91 MCH 28.8 MCHC 31.8 L RDW 17.7 H Plt Count 340 MPV 8.7 Immature Gran % 0.4 Neutrophils % 81.1 Lymphocytes % 7.4 Monocytes % 10.6 Eosinophils % 0.1 Basophils % 0.4 Nucleated RBC % 0.0 Absolute Neutrophils 6.02 Absolute Lymphocytes 0.55 L Absolute Monocytes 0.79 Absolute Eosinophils 0.01 Absolute Basophils 0.03 Sodium 140 Potassium 4.4 Chloride 102 Carbon Dioxide 26.8 Anion Gap 11.2 H BUN 28 H Creatinine 1.0 Est GFR (CKD-EPI 2020) 78.49 Glucose 66 L Calcium 8.9 Total Bilirubin 1.0 AST 49 H ALT 27 Alkaline Phosphatase 133 H Total Protein 7.1 Albumin 2.3 L
[2022-12-11 22:23] LABS: HCT 27.9 % (40.0-50.0); HGB 9.2 g/dL (13.5-17.5)
[2022-12-12] MEDS: traMADol 50 MG TAB PO (03:14)
[2022-12-12] MEDS: Lactated Ringers 1,000 ML 125 ML IV (03:49)
[2022-12-12] MEDS: ACETAMINOPHEN 1,000 MG/100 ML BTL 400 MG IVPB ×2 (03:54→11:36)
[2022-12-12 04:42] VITALS: BP 92/56; PULSE 76; RESP 89
[2022-12-12 04:45] VITALS: O2SAT 92
[2022-12-12 08:00] VITALS: RESP 18
[2022-12-12] MEDS: Budesonide/Formoterol 80/4.5 6.9 GM 60 PUFF INH IH (08:38)
[2022-12-12] MEDS: Tiotropium Bromide-Respimat 10 PUFF INH 2 PUFF IH (08:38)
--- NOTE | 2022-12-12 11:57 | CMPROGNOTE_ITS ---
Date of service: 12/12/22 Time of Service: 11:57 Care Management Progress Note Progress Note Text Progress Note Text: S/O: Klever remains on covid precautions, CM is unable to meet with him via phone due to hearing loss.? Per provider, pt was considering surgery and wanted time to think about it. Now, he wants to be left alone and the Hospitalist is having a difficult time to get him to engage in conversation. Dr. Deleon is going to reach out to his daughter. He may benefit from a Palliative follow up with his daughter to discuss his goals of care since he is not really engaging in decision making conversations. CM will continue to follow.? A: 77 year old male admitted to [facility] on 12/08/22 for Spleen laceration, Subdural hematoma, COVID-19 P: Klever was readmitted on 12/08/22 and is now considering surgery, instead of comfort care. Palliative is following, [facility] is on file. Discharge planning continues based on goals of care and prognosis.?
[2022-12-12 15:18] VITALS: BP 105/65; PULSE 73; RESP 20; TEMP 37.5; O2SAT 95
--- NOTE | 2022-12-12 17:39 | PGE_ITS ---
Date of Service Date of service: 12/12/22 Time of Service: 17:39 Assessment and Plan Assessment and plan (1) Ruptured spleen: Status: Acute Assessment and plan: I explained to Klever again today the nature of his spleen injury, and the challenge of prognosis moving forward. In simple terms, I did explain that without any form of treatment, there is a possibility that the injury could evolve, and he could have more bleeding which may ultimately raise major medical complications, including . I also explained that definitive treatment options would include surgery, or potentially angioembolization. I recommended transfer to a tertiary care center for either 1 of those treatments. The angioembolization is beyond our ability here, and I think that surgery for sp lenectomy would incur a fair amount of risk given his current COVID and pulmonary status. I think it is very likely that his postoperative course could be complicated by some degree of respiratory failure necessitating ventilator support. I do think he has the capacity to understand what I am telling him and to make decisions, but when asked specifically if he would like me to pursue transfer down to [facility], he does not provide any clear answer. I also took some time this evening to talk with his daughter to reiterate the nature of the situation, and what we can do to help meet Klever's expectations with regards to his health care. Unfortunately, she cannot be at the hospital because of a active COVID infection herself. She tells me that Klever be visited by some other family over the next few days, we can try to use that to help guide some of the decision-making if necessary. Subjective Subjective Interval history since last seen: Klever tells me that he feels a little better today. He still has some abdominal discomfort, especially when he is coughing. He says he ate some food, but he does not have much appetite. Exam GI Other: His abdomen is soft and nondistended. He is not very tender. Objective Last Vital Signs Temp 99.5 F 12/12/22 15:18 Pulse 73 12/12/22 15:18 Resp 20 12/12/22 15:18 BP 105/65 12/12/22 15:18 Pulse Ox 95 12/12/22 15:18 Laboratory Results - last 24 hr 12/11/22 22:15 Hgb 9.2 L Hct 27.9 L Time Spent with Patient Time Spent with Patient: >50 minutes Time was spent: preparing to see the patient(eg.review tests), referring, communicating with other health clinical care leader, counseling the patient and care coordination
--- NOTE | 2022-12-12 19:13 | PGE_ITS ---
Date of Service Date of service: 12/12/22 Time of Service: 19:13 Assessment and Plan Assessment and plan (1) Spleen laceration: Start date: 12/08/22 Status: Acute Assessment and plan: Dr. Bruce Kang spoke w/ the patient and w/ his daughter, he feels that the patient understood his explaination of his risks of not doing something de finitive to treat the splenic rupture, i.e., splenectomy or embolization. The pattient seems to be thinking that Dr. Kang will be setting him up to go to [facility] per patient[facility] Dr. Kang feels that his condition w/ his COVID and COPD that he is high risk for complications including postoperative respiratory failure requiring prolonged mechanical ventilation. I think it is appropriate for patient to be sent to [facility] if this can be arranged, i.e. an accepting physician and bed availabilty Qualifiers: Encounter type: subsequent encounter Qualified Code(s): S36.039D - Unspecified laceration of spleen, subsequent encounter (2) Subdural hematoma: Status: Acute Assessment and plan: stable per repeat CT head. No surgical intervention needed. (3) Dysphagia: Status: Acute Assessment and plan: Obtain [facility] consult. Diet downgraded to pur?ed with thickened liquids. All feedings to be supervised. Monitor for aspiration. [facility] attempted to evaluate him yesterday but he refused further feeding trials after eating 5 bites of lunch. [facility] will revisit tomorrow (4) COVID-19: Start date: 12/08/22 Status: Acute Assessment and plan: continue Paxlovid. (5) Acute blood loss anemia: Start date: 12/08/22 Status: Acute Assessment and plan: stable hemoglobin 9.2 gm. will monitor. no transfusion at this time (6) Fall as cause of accidental injury at home as place of occurrence: Start date: 12/08/22 Status: Acute Assessment and plan: As above. Qualifiers: Encounter type: subsequent encounter Qualified Code(s): W19.XXXD - Unspecified fall, subsequent encounter; Y92.009 - Unspecified place in unspecified non-institutional (private) residence as the place of occurrence of the external cause (7) Laceration of brow without complication: Start date: 12/08/22 Status: Acute Assessment and plan: Repaired with sutures. Continue wound care, keep clean and dry. Qualifiers: Encounter type: initial encounter Qualified Code(s): S01.81XA - Laceration without foreign body of other part of head, initial encounter (8) DVT prophylaxis: Status: Acute Assessment and plan: clinically not indicated d/t splenic rupture. will use SCD Subjective Subjective Interval history since last seen: Patient is much more alert and oriented today now that he is off dilaudid. He tells me that the other doctor tells me he will send me down to [place] to have surgery. When I asked him whether or not he wants this, he indicated that he wo uld have surgery if it will help. I explained to him that surgery would prevent him from future catastrophic bleeding from further splenic injury. Patient has moist cough but unable to produce any sputum. He says that his abdomen only hurst w/ coughing. He has refused albuterol aerosols and refuses to use Symbicort and Spiriva. He wants his Trelegy. I explained to him that we do not keep Trelegy in stock in the pharmacy. He says that he has 45 day supply at home. I told him if family can bring it in to the hospital then we can give it him. Exam Narrative Exam Narrative: Klever is sitting up in bed. He is completely alert and oriented. HEENT: right periorbital swelling has gone down, he can now fully open the right eye. laceration is healing and no drainage from the sutured wound Lungs: diffuse expiratory wheezing Heart: regular Abdomen: active bowel sounds, tender but I did not palpate much out of abundance of concern of worsening his splenic laceration; no tenderness in lower quadrants Objective Last Vital Signs Temp 37.5 C 12/12/22 15:18 Pulse 73 12/12/22 15:18 Resp 20 12/12/22 15:18 BP 105/65 12/12/22 15:18 Pulse Ox 95 12/12/22 15:18 Laboratory Results - last 24 hr 12/11/22 22:15 Hgb 9.2 L Hct 27.9 L Time Spent with Patient Time Spent with Patient: 25-34 minutes (30) Time was spent: preparing to see the patient(eg.review tests), ordering medications,tests, procedures, referring, communicating with other health date night caregiver (Dr. Kang), indepentently interpreting results, counseling the patient and care coordination
[2022-12-12] MEDS: Acetaminophen 500 MG TAB 1000 MG PO (20:30)
[2022-12-12 23:24] VITALS: BP 110/60; PULSE 74; RESP 20; TEMP 36.5; O2SAT 95
[2022-12-13 08:16] VITALS: BP 109/71; PULSE 77; RESP 14; TEMP 36.1; O2SAT 90
[2022-12-13 08:56] LABS: HCT 29.9 % (40.0-50.0); HGB 10.1 g/dL (13.5-17.5)
--- NOTE | 2022-12-13 15:05 | CMPROGNOTE_ITS ---
Date of service: 12/13/22 Time of Service: 15:05 Care Management Progress Note Progress Note Text Progress Note Text: S/O: Edmelanie remains on covid precautions, CM is unable to meet with him via phone due to hearing loss.? Plan is now for patient to transfer to [facility] and is accepted pending bed availability. See provider documentation for details. CM will continues to follow.? A: 77 year old male admitted to [facility] on 12/[facility]/22 for Spleen laceration, Subdural hematoma, COVID-19 P: Edmelanie was readmitted on 12/08/22 and is now considering surgery, instead of comfort care. Palliative is following, [facility] is on file. Discharge planning continues based on goals of care and prognosis.?
[2022-12-13 15:46] VITALS: BP 111/69; PULSE 80; RESP 19; TEMP 37; O2SAT 97
--- NOTE | 2022-12-13 18:17 | W.PM.DS.N ---
Date of service: 12/13/22 Time of Service: 18:17 DS: Diagnosis Discharge Diagnosis (1) Spleen laceration: Status: Acute (2) Subdural hematoma: Status: Acute (3) Dysphagia: Status: Acute (4) COVID-19: Status: Acute (5) Acute blood loss anemia: Status: Acute (6) Fall as cause of accidental injury at home as place of occurrence: Status: Acute (7) Laceration of brow without complication: Status: Acute (8) Nasal bone fracture: Status: Acute (9) Sacral fracture: Status: Acute Discharge Plan Disposition Specific Acute Inpt Facility: [facility] Condition: Good Condition: Serious Discharge Details Reason For Visit: Lacerated Spleen, Acute Blood Loss Anemia, SAH, Co Admit Date/Time: 12/08/22 21:55 Admit Provider: Carlos Saleem Attending Provider: Carlos Saleem Primary Care Provider: [facility] Course: Mr Holguin is a 77 year old male with PMHx of COPD, sleep apnea, chronic back pain, essential tremor, who was discharged from our facility on 12/02/22 after an admission for a traumatic splenic contusion, as well as a stable small right parietal subarachnoid vs intraparenchymal hemorrhage, nondisplaced fractures of T1, T2 vertebral bodies, and the left transverse process of L5 following a fall from a 10 foot ladder. The contusion of the spleen was felt to be minor. He had no neurological deficits except for post-concussive amnesia. He was transferred to the ICU for closer monitoring. His Subarachnoid vs intraparenchymal bleed was reviewed with [facility] neurosurgery. Repeat CT of the head 6 hrs later was stable. He was deemed stable and was discharged home on 12/02/22. He returned to [facility] ED on 12/08/22 after falling out of bed at 2 am, having tripped, landing on his right eye brow and without LOC. At the time, the only reported pain was the right eye brow. This was sutured. There was now evidence of bifrontal subarachnoid hemorrhage on CT. Because his hemoglobin had dropped from 12 to 9.9, a CT of the abdomen/pelvis was obtained to reevaluate the spleen. This showed a grade 3-4 splenic tear, a large subcapsular hematoma without active hemorrhage, thickening of the gallbladder wall concerning for cholecystitis, and a question of sacral una fracture on the left. Repeat CT of the head was stable. This was read as subdural hematoma. The patient was found to be positive for COVID-19. He specifically discussed with the ER provider that he wanted to be DNR/DNI, and to be started on comfort measures. This was consistent with his prior advanced directives. He wanted to stay in the hospital on comfort measures rather than go home at this point. He did receive 1 gram of TXA. It does not look like he actually received a blood transfusion though this was ordered. The patient admitted to the hospitalist service on 12/08/22 on comfort measures. On 12/10/22, he was evaluated by palliative care, and Dr Valdovinos, having discussed the case with general surgery, felt that the patient did not have a necessarily terminal condition, that he could survive this without surgery. At this point, goals of care have shifted from comfort measures. General surgery was consulted and felt the patient would benefit from an IR embolization vs splenectomy, and the patient, who was initially resistant, was now willing to consider going to a tertiary care center for these interventions. He was started on Paxlovid for COVID-19. He is on RA. His pain is controlled with prn ultram. He was accepted in transfer to [facility] general surgery service by Dr Dykes. He is stable for transfer. We appreciate the assistance of the [facility] clinical team and wish the patient well. Care for patient as well as completion of his transfer summary on day of transfer took 60 minutes. Please, look for MAR for list of the patient's inpatient medications. The list of medications below reflects his outpatient prescriptions. Home Meds and New Rx's Prescriptions: No Action albuterol sulfate 90 mcg/actuation HFA aerosol inhaler 2 puff inhalation Q6H PRN (Reason: shortness of breath or wheezing) Qty: 8.5 12RF Trelegy Ellipta 100-62.5-25 mcg blister with device 1 inh inhalation DAILY Qty: 60 5RF propranolol 120 mg capsule,extended release 24 hr 120 mg PO DAILY cholecalciferol (vitamin D3) 50 mcg (2,000 unit) capsule 50 mcg PO DAILY primidone 250 mg tablet 300 mg PO TID Qty: 270 acetaminophen 500 mg Tablet 650 mg PO TID PRN PRNQty: 0 0RF Discharge Instructions Instructions: Liver or Spleen Laceration (DC), Intracranial Hematoma (DC) Activity:: OOB to chair Equipment/Supplies:: No Equipment Needed Diet:: As Tolerated DS: Summary Time Spent with Patient providing and/or coordinating discharge services: Greater than 30 minutes Status at Discharge Functional status at discharge: uses cane/walker Overall status at discharge: patient is not back to baseline Mental Status: mental status grossly normal Speech and Movement: speech and movement normal Mood: congruent mood Affect: indifferent Exam Narrative Exam Narrative: General: Pleasant elderly male with essential tremor, A&Ox2, [place] HEENT: EOMI, MMM Heart: RRR, no m/r/g Lungs: resonant rales B Abdomen: soft, tender in LUQ, nondistended Extremities: no edema BLEs Psych Mental Status: mental status grossly normal Speech and Movement: speech and movement normal Mood: congruent mood Affect: indifferent DS: Data Vitals/I&O Vitals and I&O: Vital Signs Temperature 37.0 C 12/13/22 15:46 Temperature Source Tympanic 12/13/22 15:46 Pulse 80 12/13/22 15:46 Pulse Rhythm Regular 12/13/22 15:00 Pulse 90 12/08/22 22:40 Respiratory Rate 19 12/13/22 15:46 Respiratory Effort Normal, Non-Labored 12/13/22 15:00 Respiratory Depth Normal 12/13/22 15:00 Respiratory Pattern Normal 12/13/22 15:00 Blood Pressure 111/69 12/13/22 15:46 Blood Pressure Mean 72 12/08/22 22:30 Blood Pressure Position Supine 12/08/22 18:29 Pulse Oximetry 97 12/13/22 15:46 Oxygen Delivery Method Nasal Cannula 12/13/22 15:46 Oxygen Flow Rate 3.5 12/13/22 15:46 Pain Level 4 12/13/22 15:46 Comment patient is on 1 liter. 12/08/22 20:41 Intake & Output 12/12/22 12/13/22 12/13/22 23:59 11:59 23:59 Intake Total 160 / 270 140 / 310 170 / 310 Output Total 1050 / 1625 850 / 1475 625 / 1475 Balance -890 / -1355 -710 / -1165 -455 / -1165 Intake: IV 100 / 210 20 / 20 Oral 60 / 60 120 / 290 170 / 290 Output: Urine 1050 / 1625 850 / 1475 625 / 1475 Other: Urine Color Dark Korin Straw Straw Light Korin Urine Appearance Hematuria Clear Clear Comment unable to measure not hat in toilet Voiding Methods Toilet Data Completed and Pending Completed studies during hospitalization [Text1]: CT head/c-spine/facial 12/08/22: No acute intracranial findings. Nasal bone fracture, age indeterminate. T1 and T2 compression fractures.? No listhesis at this level.? No facet malalignment..? No involvement of posterior osseous elements. CT head 12/08/22: No acute intracranial findings on this noninfused CT scan of the brain. Nasal bone fracture again noted. CT head 12/08/22 #2: Thin right frontal region subdural hematoma maximum thickness 2-3 mm.? No significant compression of the subjacent brain tissue.? No overlying skull fracture. CT chest/abdomen/pelvis 12/08/22: 1. There is a high-grade laceration of the spleen with perisplenic fluid and hyperdense fluid-blood in the dependent aspect of the pelvis.? There are no obvious rib fractures but there are fractures of the right transverse process is of L3 and L4 and of the left transverse process fracture of L5.? No other fractures identified. 2. Small amount of infiltrate in the overlying left lower lobe.? No prominent left pleural effusion nor other significant pulmonary findings. 3. No evidence of hepatic laceration nor renal injuries. 4. Cholelithiasis.? Large lamellated gallstone with hyperdense bile in the gallbladder fundus above this level.? CBD not dilated. 5. There is atherosclerotic involvement of the abdominal aorta and iliac arteries.? No occlusions.? No large aneurysms. CT abdomen/pelvis 12/11/22: Stable appearance of perisplenic hematoma. Mild decrease in mount of pelvic peritoneal hemorrhage. No new findings. Labs on day of discharge: Labs from last 24 hours 12/13/22 08:50 Hgb 10.1 L Hct 29.9 L Preliminary micro results at discharge 12/08/22 19:24 Blood Culture - Preliminary Blood NO GROWTH 96 HOURS 12/08/22 19:05 Blood Culture - Preliminary Blood NO GROWTH 96 HOURS PFSH All Active Problems (Updated 12/13/22 @ 18:56 by Lexie Mayer MD) Sacral fracture (Acute) Nasal bone fracture (Acute) Advanced care planning/counseling discussion (Acute) TBI (traumatic brain injury) (Acute) Palliative care encounter (Acute) Subdural hematoma (Acute) DVT prophylaxis (Acute) COVID-19 (Acute) Comfort measures only status (Acute) Spleen laceration (Acute) Acute cholecystitis (Acute) Bleeding in brain (Acute) Abdominal pain (Acute) Acute blood loss anemia (Acute) Ruptured spleen (Acute) Laceration of brow without complication (Acute) Lethargy (Acute) Fall (Acute) Minor contusion of spleen (Acute) Subarachnoid bleed (Acute) Lumbar transverse process fracture (Acute) 3 vertebrae Nicotine dependence, cigarettes, uncomplicated (Acute) Constipation (Acute) ROE and COPD overlap syndrome (Acute) Rib pain on right side (Acute) Fall as cause of accidental injury at home as place of occurrence (Acute) Anemia, iron deficiency (Acute) Weight loss, abnormal (Acute) Tubular adenoma (Acute 01/29/16) Mass of vallecula (Acute) Pharyngeal dysphagia (Acute) Aspiration into lower respiratory tract (Acute) Vocal cord dysfunction (Acute) Vocal cord paralysis (Acute) Ribs, multiple fractures (Acute 06/05/13) Ribs 7 through 9 Atelectasis (Acute 06/05/13) COPD (chronic obstructive pulmonary disease) (Chronic) Jun 24, 2012 PFT's with FEV1 60% predicted, severe obstrtuctive disease with no significatn bronchodilator response. Tobacco abuse (Chronic) Ongoing tobacco use, nicotiune replacement not helpful, Chntix helped in the past but could not afford. PFT's performed 07/03/12 with REV1 60% predicted, severe obstrructive disease with no significant bronchodilator response. Sleep apnea (Chronic) Treated with CPAP. Essential tremor (Chronic) Chronic back pain (Chronic) Weight loss (Acute) Dysphagia (Acute) Hyperlipidemia (Chronic) Medical History Chronic low back pain Cigarette smoker Colon polyps 01/08/19 w/ Dr Marya Stinson, [facility], tubular adenoma, repeat 3 yrs 01/29/16 w/ Dr. Aleyda Irizarry, 4 tubular adenoma's, repeat 3 years COPD (chronic obstructive pulmonary disease) Hearing loss History of broken collarbone right collarbone fx with hardware- per pt 6 years ago Polyuria Shoulder pain, left Sleep apnea Tremor Surgical History Hx of surgical procedure clavicle repair Hx of thumb surgery 1973. [address] in [address] Family History Mother Colon cancer Social History Smoking/Tobacco Use Status: Former Tobacco Use Tobacco: How many years used: 50 Smoking risk assessment performed?: Yes Alcohol Intake: never Drug use: Never Substance use type: does not use Details: QUIT SMOKING A MONTH AGO, CURRENTLY USING CHANTIX TO QUIT Do you feel safe at home: Yes (unable to ask privately) Do you feel safe in your relationship?: Yes Additional Social history: Time Spent with Patient Time Spent with Patient: 45-69 minutes Time was spent: preparing to see the patient(eg.review tests), obtaining and/or reviewing separately otained hiistory, ordering medications,tests, procedures, referring, communicating with other health school child care attendant, indepentently interpreting results, counseling the patient and care coordination
--- NOTE | 2022-12-13 18:39 | NUR.NOTE ---
Called [phone] & gave report to STELLA Mancia. All questions & or concerns addressed. Nursing Note:
== END 2022-12-13 19:23 | disposition short-term general hospital (02) | DRG 963 ==
LOC: ER 22:32 → MS 23:15
PROVIDERS: Emergency Medicine; Internal Medicine; Admitting Provider Family Medicine; Emergency Provider Student in an Organized Health Care Education/Training Program; PCP Family Medicine; Visit Provider Family Medicine
DX: S36.039A Unspecified laceration of spleen, initial encounter (principal); I62.03 Nontraumatic chronic subdural hemorrhage; S32.10XA Unspecified fracture of sacrum, initial encounter for closed fracture; U07.1 COVID-19; D62 Acute posthemorrhagic anemia; Z68.1 Body mass index [BMI] 19.9 or less, adult; Z51.5 Encounter for palliative care; W11.XXXA Fall on and from ladder, initial encounter; S06.6XAD Traumatic subarachnoid hemorrhage with loss of consciousness status unknown, subsequent encounter; R29.6 Repeated falls; R53.1 Weakness; R63.4 Abnormal weight loss; W19.XXXD Unspecified fall, subsequent encounter; S01.81XA Laceration without foreign body of other part of head, initial encounter; F17.210 Nicotine dependence, cigarettes, uncomplicated; J44.9 Chronic obstructive pulmonary disease, unspecified; G47.30 Sleep apnea, unspecified; E78.5 Hyperlipidemia, unspecified; R13.10 Dysphagia, unspecified; G89.29 Other chronic pain; M54.9 Dorsalgia, unspecified; G25.0 Essential tremor; J38.00 Paralysis of vocal cords and larynx, unspecified; K59.00 Constipation, unspecified; S32.058D Other fracture of fifth lumbar vertebra, subsequent encounter for fracture with routine healing; S32.038D Other fracture of third lumbar vertebra, subsequent encounter for fracture with routine healing; S32.048D Other fracture of fourth lumbar vertebra, subsequent encounter for fracture with routine healing; S02.2XXA Fracture of nasal bones, initial encounter for closed fracture
CPT/HCPCS: 36415; 71275; 74177; 80053; 84145; 85027; 86850; 86900; 86901; 86920; 87040; 87637; 93005; 94640; 96365; 96375; 99221; 99231; 99285; 70450; 74176; 81003; 81015; 83605; 83735; 84443; 84484; 85014; 85018; 85025; 85610; 93010; 94664; 94760; 99223; 99232; 99239; J0131; J1170; J2270; J2930; J3490; J7620

== ENCOUNTER 2023-03-19 02:45 | Emergency (ER) | payer OTHER, SELFPAY ==
[2023-03-19 02:50] VITALS: BP 142/92; PULSE 91; RESP 19; TEMP 36.8; O2SAT 97
[2023-03-19 02:53] VITALS: RESP 18
--- NOTE | 2023-03-19 03:07 | ED.GENADUL_ITS ---
Discharge Plan Disposition Patient Disposition: Home Condition: Stable Discharge Details Clinical Impression: Frequent epistaxis Primary Care Provider: Peter Boone ED Provider: Humberto Agarwal Home Meds and New Rx's Prescriptions: Continued albuterol sulfate 90 mcg/actuation HFA aerosol inhaler 2 puff inhalation Q6H PRN (Reason: shortness of breath or wheezing) Qty: 8.5 12RF Trelegy Ellipta 100-62.5-25 mcg blister with device 1 inh inhalation DAILY Qty: 60 5RF propranolol 120 mg capsule,extended release 24 hr 120 mg PO DAILY cholecalciferol (vitamin D3) 50 mcg (2,000 unit) capsule 50 mcg PO DAILY primidone 250 mg tablet 300 mg PO TID Qty: 270 acetaminophen 500 mg Tablet 650 mg PO TID PRN PRNQty: 0 0RF Discharge Instructions Instructions: Nosebleed (ED) Discharge Data Discharge Date/Time-TO BE ENTERED AT DEPARTURE: 03/19/23 04:15 Discharge Physician: Humberto Agarwal Medical Decision Making Patient presents to the emergency department concerned that he has been having nosebleeds on a daily basis Labs were done which did not show any significant abnormality in the coagulation or platelet count. I told him that this is concerning but he should follow-up with his primary care physician for more labs or hematology consult for there is no apparent reason visible here for the nosebleeds. HPI General Date/Time Provider Initiated Documentation: 03/19/23 03:07 . HPI Narrative: Patient presents emergency department concerned that he has been having frequent epistaxis almost on a daily basis. Tonight he said he had one earlier but does not have anything now but is very anxious and concerned about the situation. States that he wants labs done and that is the reason he came to the emergency department Related Data Home Medications Medication Instructions Recorded Confirmed cholecalciferol (vitamin D3) 50 50 mcg PO DAILY 04/06/20 03/19/23 mcg (2,000 unit) capsule propranolol 120 mg capsule,24 120 mg PO DAILY 04/06/20 03/19/23 hr,extended release primidone 250 mg tablet 300 mg PO TID #270 tab-caps 05/23/20 03/19/23 albuterol sulfate 90 mcg/actuation 2 puff inhalation Q6H PRN 02/04/22 12/08/22 aerosol inhaler shortness of breath or wheezing #8.5 grams fluticasone fur. 100 mcg-umeclid 1 inh inhalation DAILY #60 ea 05/16/22 12/08/22 62.5 mcg-vilant 25 mcg inhalat.powder (Trelegy Ellipta) acetaminophen 500 mg tablet 650 mg PO TID PRN PRN #0 tabs 12/02/22 12/08/22 Previous Rx's Medication Instructions Recorded albuterol sulfate 90 mcg/actuation 2 puff inhalation Q6H PRN 02/04/22 aerosol inhaler shortness of breath or wheezing #8.5 grams fluticasone fur. 100 mcg-umeclid 1 inh inhalation DAILY #60 ea 05/16/22 62.5 mcg-vilant 25 mcg inhalat.powder (Trelegy Ellipta) acetaminophen 500 mg tablet 650 mg PO TID PRN PRN #0 tabs 12/02/22 Allergies Allergy/AdvReac Type Severity Reaction Status Date / Time aspirin AdvReac Intermediate GI UPSET Verified 03/19/23 02:59 General Stated Complaint: GenMedical NAWAF: 4 Review of Systems Narrative: Review of Systems: Constitutional: No fevers, chills, sweats Eye: No recent visual problems ENT: No ear pain, nasal congestion, sore throat Respiratory: No shortness of breath, cough Cardiovascular: No Chest pain, palpitations, syncope Gastrointestinal: No nausea, vomiting, diarrhea Genitourinary: No hematuria Blade/Lymph: Negative for bruising tendency, swollen lymph glands Endocrine: Negative for excessive thirst, excessive hunger Musculoskeletal: No back pain, neck pain, joint pain, muscle pain, decreased range of motion Integumentary: No rash, pruritus, abrasions Neurologic: Alert & oriented X 4 Psychiatric: No anxiety, depression PFSH All Active Problems (Updated 03/19/23 @ 04:09 by Humberto Agarwal MD) Frequent epistaxis (Acute) Sacral fracture (Acute) Nasal bone fracture (Acute) Advanced care planning/counseling discussion (Acute) TBI (traumatic brain injury) (Acute) Subdural hematoma (Acute) COVID-19 (Acute) Spleen laceration (Acute) Acute cholecystitis (Acute) Bleeding in brain (Acute) Abdominal pain (Acute) Acute blood loss anemia (Acute) Ruptured spleen (Acute) Lethargy (Acute) Fall (Acute) Minor contusion of spleen (Acute) Subarachnoid bleed (Acute) Lumbar transverse process fracture (Acute) 3 vertebrae Nicotine dependence, cigarettes, uncomplicated (Acute) Constipation (Acute) ROE and COPD overlap syndrome (Acute) Rib pain on right side (Acute) Fall as cause of accidental injury at home as place of occurrence (Acute) Anemia, iron deficiency (Acute) Weight loss, abnormal (Acute) Tubular adenoma (Acute 01/29/16) Mass of vallecula (Acute) Pharyngeal dysphagia (Acute) Aspiration into lower respiratory tract (Acute) Vocal cord dysfunction (Acute) Vocal cord paralysis (Acute) Ribs, multiple fractures (Acute 06/05/13) Ribs 7 through 9 Atelectasis (Acute 06/05/13) COPD (chronic obstructive pulmonary disease) (Chronic) Jun 24, 2012 PFT's with FEV1 60% predicted, severe obstrtuctive disease with no significatn bronchodilator response. Tobacco abuse (Chronic) Ongoing tobacco use, nicotiune replacement not helpful, Chntix helped in the past but could not afford. PFT's performed 07/03/12 with REV1 60% predicted, severe obstrructive disease with no significant bronchodilator response. Sleep apnea (Chronic) Treated with CPAP. Essential tremor (Chronic) Chronic back pain (Chronic) Weight loss (Acute) Dysphagia (Acute) Hyperlipidemia (Chronic) Medical History (Updated 03/19/23 @ 04:09 by Humberto Agarwal MD) Chronic low back pain Cigarette smoker Colon polyps 01/08/19 w/ Dr Marya St[place], [place], tubular adenoma, repeat 3 yrs 01/29/16 w/ Dr. Aleyda Irizarry, 4 tubular adenoma's, repeat 3 years COPD (chronic obstructive pulmonary disease) Hearing loss History of broken collarbone right collarbone fx with hardware- per pt 6 years ago Palliative care encounter Polyuria Shoulder pain, left Sleep apnea Tremor Surgical History Hx of surgical procedure clavicle repair Hx of thumb surgery 1973. Hard[address] in place Family History Mother Colon cancer Social History Smoking/Tobacco Use Status: Current every day Tobacco Type: cigarettes Tobacco: How many years used: 50 Smoking risk assessment performed?: Yes Alcohol Intake: never Drug use: Never Substance use type: does not use Housing: house Do you feel safe at home: Yes (unable to ask privately) Do you feel safe in your relationship?: Yes Additional Social history: Exam Narrative Exam Narrative: Exam; vitals signs as reported above normal Constitutional; In no acute distress, afebrile General: cooperative, healthy appearing, comfortable and no acute distress HEENT: Head: normal to inspection, no palpable skull fracture and normocephalic atraumatic Eyes: : appearance normal, both eyes and all related structures EOM intact bilaterally Pupils: PERRL : conjunctiva normal Direct ophthalmoscopy: normal light reflex, normal conjunctiva, normal visual acuity Ears: Normal TM, normal external canal Nose: normal no rhinorrehano visible blood in the nostrils Neck no JVD, supple non tender Neck: normal visual inspection, full ROM and no lymphadenopathy Chest: normal inspection of the chest Respiratory : normal respiratory effort and able to speak in complete sentences no wheezing no rales Cardio Rate: regular rate, rhythm: regular rhythm normal heart sounds S1 and S2 no murmurs, gallops, or rubs GI : normal to inspection, normal bowel sounds, soft, non tender, non distended, no organomegaly Back/Spine/ no CVA tenderness Thoracic/Lumbar Spine: no tenderness or deformities Skin no rashes or lesions Neuro: patient alert oriented x 4 and no meningeal signs, Cranial Nerves: CN's II-XI intact bilaterally, Cognition: normal cognition, Speech: speech normal, Gait: normal gait, Depp tendon reflexes normal 2+ muscle strength 5/5 bilaterally Extremities, no edema, full range of motion, normal strength Course Vital Signs Vital signs: Vital Signs Temperature 36.8 C 03/19/23 02:50 Pulse 91 H 03/19/23 02:50 Respiratory Rate 19 03/19/23 02:50 Blood Pressure 142/92 H 03/19/23 02:50 Pulse Oximetry 97 03/19/23 02:50 Temperature 36.8 C 03/19/23 02:50 Pulse 91 H 03/19/23 02:50 Respiratory Rate 18 03/19/23 02:53 Respiratory Effort Normal 03/19/23 02:53 Respiratory Depth Normal 03/19/23 02:53 Respiratory Pattern Normal 03/19/23 02:53 Blood Pressure 142/92 H 03/19/23 02:50 Pulse Oximetry 97 03/19/23 02:50 Oxygen Delivery Method Room Air 03/19/23 02:50 Oxygen Flow Rate 0 03/19/23 02:50 Pain Level 0 03/19/23 02:50 Vital Signs & Lab Results Vital Signs Most Recent Vital Signs: Most Recent Vital Signs Temp Pulse Resp BP Pulse Ox 36.8 C 91 H 18 142/92 H 97 03/19/23 02:50 03/19/23 02:50 03/19/23 02:53 03/19/23 02:50 03/19/23 02:50 Point of Care Results Nursing Point of Care Results: No Data to Display Lab Results 03/19/23 03:05 03/19/23 03:05 Blood Type / Crossmatch: No Data to Display Complete Blood Count: White Blood Count 8.69 10^3/uL (4.4-10.8) 03/19/23 03:05 Red Blood Count 4.48 10^6/uL (4.36-5.78) 03/19/23 03:05 Hemoglobin 13.3 g/dL (13.5-17.5) L 03/19/23 03:05 Hematocrit 39.7 % (40.0-50.0) L 03/19/23 03:05 Platelet Count 415 10^3/uL (130-400) H 03/19/23 03:05 Complete Metabolic Panel: Sodium 135 mmol/L (136-145) L 03/19/23 03:05 Potassium 4.2 mmol/L (3.5-5.1) 03/19/23 03:05 Chloride 98 mmol/L (98-107) 03/19/23 03:05 Carbon Dioxide 32.0 mmol/L (21.0-32.0) 03/19/23 03:05 BUN 15 mg/dL (7-18) 03/19/23 03:05 Creatinine 0.9 mg/dL (0.70-1.30) 03/19/23 03:05 Est GFR (CKD-EPI 2020) 89.07 (mL/min/1.73m2) 03/19/23 03:05 Magnesium 1.9 mg/dL (1.8-2.4) 03/19/23 03:05 Calcium 9.6 mg/dL (8.5-10.1) 03/19/23 03:05 Albumin 3.0 g/dL (3.4-5.0) L 03/19/23 03:05 Glucose 118 mg/dL (74-106) H 03/19/23 03:05 Liver Function Panel: Alanine Aminotransferase (ALT/SGPT) 33 U/L (16-63) 03/19/23 03: 05 Aspartate Amino Transf (AST/SGOT) 28 U/L (15-37) 03/19/23 03:05 Coagulation Panel: INR International Normalized Ratio 1.0 (0.9-1.1) 03/19/23 03:0 5 Prothrombin Time 10.2 sec (9.3-11.0) 03/19/23 03:05 Activated Partial Thromboplast Time 32.3 sec (21.5-31.9) H 03/19/23 03:05 Cardiac Panel: No Data to Display Arterial Blood Gas: No Data to Display Venous Blood Gas: No Data to Display Pancreas Panel: Lipase 33 U/L (16-77) 03/19/23 03:05 Thyroid Panel: No Data to Display Infectious Disease: No Data to Display Blood Cultures: No Data to Display Toxicology Panel: No Data to Display
[2023-03-19 03:21] LABS: Abs Immature Grans 0.03 10^3/uL (0.0-0.06); Absolute Basophil Count 0.08 10^3/uL (0.0-0.2); Absolute Eosinophil Count 0.22 10^3/uL (0.0-0.7); Absolute Lymphocyte Count 1.27 10^3/uL (1.2-3.4); Absolute Monocyte Count 1.14 10^3/uL (0.1-0.8); Absolute Neutrophil Count 5.95 10^3/uL (1.2-6.7); Basophils % 0.9; Eosinophils % 2.5; HCT 39.7 % (40.0-50.0); HGB 13.3 g/dL (13.5-17.5); Immature Grans % 0.3; Lymphocytes % 14.6; MCH 29.7 pg (27.0-33.0); MCHC 33.5 % (32.0-36.0); MCV 89 fL (80-95); MPV 9.8 fL (8.0-11.0); Monocytes % 13.1; Neutrophils % 68.6; Platelet Count 415 10^3/uL (130-400); RBC 4.48 10^6/uL (4.36-5.78); RDW 15.2 % (11.8-14.1); RDW-SD 49.5 fL; WBC 8.69 10^3/uL (4.4-10.8)
[2023-03-19 03:28] LABS: Lipase 33 U/L (16-77)
[2023-03-19 03:31] LABS: PTT Activated 32.3 sec (21.5-31.9); Prothrombin Time 10.2 sec (9.3-11.0)
[2023-03-19 03:32] LABS: ALT 33 U/L (16-63); AST 28 U/L (15-37); Alkaline Phosphatase 124 U/L (46-116); BUN 15 mg/dL (7-18); Bilirubin, Total 0.3 mg/dL (0.2-1.0); CREATININE 0.9 mg/dL (0.70-1.30); Calcium 9.6 mg/dL (8.5-10.1); Chloride 98 mmol/L (98-107); Estimated GFR 89.07 (mL/min/1.73m2); Glucose 118 mg/dL (74-106); Magnesium 1.9 mg/dL (1.8-2.4); Potassium 4.2 mmol/L (3.5-5.1); Sodium 135 mmol/L (136-145); Total Protein 8.5 g/dL (6.4-8.2)
[2023-03-19 03:34] LABS: Bilirubin Negative (Negative); Blood Trace-intact (Negative); Clarity Clear (Clear); Glucose Negative (Negative); Ketones Negative (Negative); Leukocyte Esterase Trace (Negative); Nitrite Negative (Negative); pH 6.5 (5-8)
[2023-03-19 03:42] LABS: Bacteria Few HPF (Negative); C & S Indicated? Yes; Crystals Few Amorphous HPF (Negative); Epithelial Cells Rare HPF (Negative); Mucus Negative (Negative)
== END 2023-03-19 04:15 | disposition home or self-care (01) ==
PROVIDERS: Emergency Provider Emergency Medicine Emergency Medical Services; PCP Family Medicine
DX: R04.0 Epistaxis (principal); Z79.899 Other long term (current) drug therapy
CPT/HCPCS: 80053; 83690; 99283; 81003; 81015; 83735; 85025; 85610; 85730; 87086

== ENCOUNTER 2023-03-24 15:59 | Outpatient (REF) | payer OTHER, SELFPAY ==
[2023-03-24 18:20] LABS: Bilirubin Small (Negative); Blood Trace-intact (Negative); Clarity Clear (Clear); Glucose Negative (Negative); Ketones Negative (Negative); Leukocyte Esterase Trace (Negative); Nitrite Negative (Negative); Specific Gravity >= 1.030 (1.005-1.025); pH 5.5 (5-8)
[2023-03-24 18:30] LABS: Bacteria Rare HPF (Negative); C & S Indicated? Yes; Casts 0-2 Hyaline LPF (Negative); Crystals Negative HPF (Negative); Epithelial Cells Rare HPF (Negative); Mucus Trace (Negative); Other Cells Rare Transitional (Negative); RBC 0-2 HPF (0-2)
== END 2023-03-24 16:00 | disposition home or self-care (01) ==
LOC: NCHCN 15:59
PROVIDERS: PCP Family Medicine; Visit Provider Family Medicine
DX: R31.9 Hematuria, unspecified (principal)
CPT/HCPCS: 81003; 81015; 87086

== ENCOUNTER → 2023-05-12 14:01 | Outpatient (CLI) | payer OTHER, SELFPAY ==
--- NOTE | 2023-05-12 15:52 | DI.RAD_ITS ---
Exam(s) XR CHEST 2V PA LATERAL EXAM: XR CHEST 2V PA LATERAL CLINICAL HISTORY: ABNL CXR AT [facility], F/U TECHNIQUE: 2D digital imaging was performed. COMPARISON: CR XR CHEST PORTABLE 1 VIEW from 01/13/2023 FINDINGS: HEART: Normal size. Aorta: Not dilated. PULMONARY VASCULATURE: Normal. LUNGS: Hyperinflated. Emphysematous changes greater at the upper lobes. No infiltrate. PLEURAL SPACE: No pleural effusion or pneumothorax. Previously noted left pleural effusion has resolv ed. BONE:Unremarkable old left rib fractures. Fixation plate along right clavicle. IMPRESSION: Resolution of previously noted left pleural effusion and adjacent infiltrate. DATA REPOSITORY: RADIATION DOSE DELIVERED:
== END ==
PROVIDERS: PCP Family Medicine; Visit Provider Family Medicine
DX: R91.8 Other nonspecific abnormal finding of lung field (principal)
CPT/HCPCS: 71046

== ENCOUNTER → 2023-05-22 10:39 | Outpatient (BNVA) | payer OTHER, SELFPAY | PROVIDERS: PCP Family Medicine; Referring Provider Family Medicine; Visit Provider Physician Assistant Surgical | DX: J44.9 Chronic obstructive pulmonary disease, unspecified (principal); Z79.51 Long term (current) use of inhaled steroids; F17.210 Nicotine dependence, cigarettes, uncomplicated; G47.33 Obstructive sleep apnea (adult) (pediatric) | CPT/HCPCS: 99214 ==

== ENCOUNTER 2023-08-05 14:50 | Outpatient (REF) | payer OTHER, SELFPAY ==
[2023-08-05 19:37] LABS: HCT 41.4 % (40.0-50.0); HGB 13.6 g/dL (13.5-17.5); MCH 27.9 pg (27.0-33.0); MCHC 32.9 % (32.0-36.0); MCV 85 fL (80-95); MPV 10.9 fL (8.0-11.0); Platelet Count 369 10^3/uL (130-400); RBC 4.88 10^6/uL (4.36-5.78); RDW 15.5 % (11.8-14.1); RDW-SD 47.8 fL; WBC 7.47 10^3/uL (4.4-10.8)
[2023-08-05 19:58] LABS: Calculated LDL 75 mg/dL (<100); Cholesterol 138 mg/dL (<200); HDL Cholesterol 49 mg/dL (40-60); Triglyceride 73 mg/dL (<150)
[2023-08-06 18:53] LABS: Hepatitis C Ab w Rflx HCV PCR Negative (Negative)
== END 2023-08-05 14:51 | disposition home or self-care (01) ==
LOC: NCHCN 14:50
PROVIDERS: PCP Family Medicine; Visit Provider Family Medicine
DX: D50.9 Iron deficiency anemia, unspecified (principal); E78.5 Hyperlipidemia, unspecified; Z11.59 Encounter for screening for other viral diseases
CPT/HCPCS: 80061; 85027; 86803

== ENCOUNTER → 2023-08-21 11:10 | Outpatient (BNVA) | payer OTHER, SELFPAY | PROVIDERS: PCP Family Medicine; Referring Provider Family Medicine; Visit Provider Physical Therapy Assistant | DX: Z12.11 Encounter for screening for malignant neoplasm of colon (principal); Z86.010 Personal history of colon polyps; Z80.0 Family history of malignant neoplasm of digestive organs ==

== ENCOUNTER → 2023-11-07 10:27 | Outpatient (BNVA) | payer OTHER, SELFPAY | PROVIDERS: PCP Family Medicine; Referring Provider Family Medicine; Visit Provider Student in an Organized Health Care Education/Training Program | DX: G47.33 Obstructive sleep apnea (adult) (pediatric) (principal); J44.9 Chronic obstructive pulmonary disease, unspecified; F17.210 Nicotine dependence, cigarettes, uncomplicated | CPT/HCPCS: 99214 ==

== ENCOUNTER → 2023-12-05 00:06 | Outpatient (CLI) | payer OTHER, SELFPAY ==
--- NOTE | 2023-12-05 12:32 | DI.CTLCSR_ITS ---
Exam(s) CT CHEST LUNG CANCER SCREEN EXAM: CT CHEST LUNG CANCER SCREEN CLINICAL HISTORY: Screening for lung cancer,current smoker,F17.210 TECHNIQUE: Imaging Protocol: Axial computed tomography images with coronal and sagittal reformatted images were created and reviewed. Low dose screening protocol. COMPARISON: CT CT CHEST/ABD/PEL W from 11/30/[address] CHEST PE ABD PELVIS W from 12/08/2022 FINDINGS: Tracheobronchial tree: No bronchiectasis or mucus plugging. Mediastinum and Alma Delia: No dominant adenopathy or fluid collection. Pulmonary parenchyma: No consolidation or dominant measurable mass. Severe emphysematous changes in t he upper lobes. Lung Nodules: None. Pleura: No effusion. No pneumothorax. Heart: The heart is not dilated. Moderate coronary artery calcifications are seen. Aorta: Thoracic aorta non-dilated. [id number] atherosclerotic changes. Upper abdomen: Large cyst left kidney. Metallic densities left upper quadrant create artifact. Gal lstone. Bones: Fixation plate in right clavicle. Spine unremarkable for age. Soft Tissues: Unremarkable. IMPRESSION: No suspicious pulmonary nodules. Lung RADS Cat 1 - Negative: No nodules and definitely benign nodules Lung-RADS 1.0 CATEGORIES: Category 0 - Prior chest CT exam(s) being located for comparison. Category 1 - Annual screening in 12 months. No nodules or definitely benign nodules. Category 2 - Annual screening in 12 months. Benign appearance. Nodules with low likelihood of becomin g active cancer. Category 3 - 6-month follow-up. Probably benign. Short-term follow-up suggested. Nodules with low lik elihood of becoming active cancer. Category 4A - 3-month follow-up and CT/PET if >8 mm in size. Suspicious finding. Findings which requi re additional testing. Category 4B - Findings which require additional testing and tissue sampling. Category 4X - Category 3 or 4 nodules with additional features or imaging findings that increases the suspicion of malignancy. Modifier S- Potentially clinically significant findings (non lung cancer) RADIATION DOSE DELIVERED: 87.8mGy.cm Total DLP DATA REPOSITORY: All CT scans at this facility are submitted to the National Radiology Data Registry (NRDR) Dose Index Registry (DIR) with the [employer] ([employer]). RADIATION OPTIMIZATION: All CT scans at this facility use at least one of these dose optimization te chniques: automated exposure control; mA and/or kV adjustment per patient size (includes targeted exa ms where dose is matched to clinical indication); or iterative reconstruction.
== END ==
PROVIDERS: PCP Student in an Organized Health Care Education/Training Program; Visit Provider Student in an Organized Health Care Education/Training Program
DX: F17.210 Nicotine dependence, cigarettes, uncomplicated (principal); Z12.2 Encounter for screening for malignant neoplasm of respiratory organs
CPT/HCPCS: 71271

== ENCOUNTER 2024-01-01 16:18 | Outpatient (REF) | payer OTHER, SELFPAY ==
[2024-01-01 18:49] LABS: Abs Immature Grans 0.02 10^3/uL (0.0-0.06); Absolute Basophil Count 0.09 10^3/uL (0.0-0.2); Absolute Eosinophil Count 0.22 10^3/uL (0.0-0.7); Absolute Lymphocyte Count 1.37 10^3/uL (1.2-3.4); Absolute Monocyte Count 0.93 10^3/uL (0.1-0.8); Absolute Neutrophil Count 4.84 10^3/uL (1.2-6.7); Basophils % 1.2 %; Eosinophils % 2.9 %; HCT 37.3 % (40.0-50.0); HGB 12.2 g/dL (13.5-17.5); Immature Grans % 0.3 %; Lymphocytes % 18.3 %; MCH 27.3 pg (27.0-33.0); MCHC 32.7 % (32.0-36.0); MCV 83 fL (80-95); MPV 10.6 fL (8.0-11.0); Monocytes % 12.4 %; Neutrophils % 64.9 %; Platelet Count 351 10^3/uL (130-400); RBC 4.47 10^6/uL (4.36-5.78); RDW 16.9 % (11.8-14.1); RDW-SD 51.8 fL; WBC 7.47 10^3/uL (4.4-10.8)
[2024-01-01 19:12] LABS: ALT 24 U/L (16-63); AST 20 U/L (15-37); Albumin 2.9 g/dL (3.4-5.0); Alkaline Phosphatase 98 U/L (46-116); Anion Gap 9.2 mmol/L (3-11); BUN 22 mg/dL (7-18); CO2 26.8 mmol/L (21.0-32.0); Calcium 8.8 mg/dL (8.5-10.1); Chloride 102 mmol/L (98-107); Glucose 124 mg/dL (74-106); Sodium 138 mmol/L (136-145); Total Protein 7.5 g/dL (6.4-8.2)
== END 2024-01-01 16:19 | disposition home or self-care (01) ==
LOC: NCHCN 16:18
PROVIDERS: PCP Student in an Organized Health Care Education/Training Program; Visit Provider Student in an Organized Health Care Education/Training Program
DX: R80.9 Proteinuria, unspecified (principal); R79.89 Other specified abnormal findings of blood chemistry; D50.9 Iron deficiency anemia, unspecified; Z87.448 Personal history of other diseases of urinary system
CPT/HCPCS: 80053; 85025; 87086

== ENCOUNTER → 2024-04-13 10:55 | Outpatient (BNVA) | payer OTHER, SELFPAY | PROVIDERS: PCP Student in an Organized Health Care Education/Training Program; Referring Provider Student in an Organized Health Care Education/Training Program; Visit Provider Nurse Practitioner Gerontology | DX: R31.0 Gross hematuria (principal); R63.4 Abnormal weight loss | CPT/HCPCS: 81003; 99215 ==

== ENCOUNTER 2024-04-13 11:48 | Outpatient (REF) | payer OTHER, SELFPAY ==
[2024-04-13 12:44] LABS: Bilirubin Negative (Negative); Blood Large (Negative); Clarity Cloudy (Clear); Glucose Negative (Negative); Ketones Negative (Negative); Leukocyte Esterase Moderate (Negative); Nitrite Negative (Negative); pH 6.5 (5-8)
[2024-04-13 12:51] LABS: Bacteria Many HPF (Negative); C & S Indicated? C&S Done As Ordered; Casts Negative LPF (Negative); Crystals Negative HPF (Negative); Epithelial Cells Rare HPF (Negative); Mucus Negative (Negative); Other Cells Negative (Negative); RBC >50 HPF (0-2); WBC >50 HPF (0-5)
== END 2024-04-13 11:49 | disposition home or self-care (01) ==
LOC: LBN 11:48
PROVIDERS: PCP Student in an Organized Health Care Education/Training Program; Visit Provider Nurse Practitioner Gerontology
DX: R31.0 Gross hematuria; R63.4 Abnormal weight loss
CPT/HCPCS: 81003; 81015; 87086

== ENCOUNTER 2024-04-20 02:28 | Outpatient (CLI) | payer OTHER, SELFPAY ==
--- NOTE | 2024-04-20 07:00 | DI.CT_ITS ---
Exam(s) CT ABDOMEN PELVIS WO/W EXAM: CT ABDOMEN PELVIS WO/W CLINICAL HISTORY: gross hematuria,r31.9. TECHNIQUE: Imaging Protocol: Axial computed tomography images with coronal and sagittal reformatted images were created and reviewed. Images were performed from the lung bases through the ischial tuberosities before IV contrast and fol lowing IV contrast using a 70 second delay, followed by 7 minutes delayed images. CONTRAST MATERIAL: Intravenous: Omnipaque 350 Contrast volume:100 cc Oral: no COMPARISON: No exams were available for comparison FINDINGS: Lung Bases: Normal where visualized. Liver: Normal density. No measurable mass. Gallbladder and biliary tract: Cholelithiasis. No gallbladder wall thickening. No biliary dilation. Pancreas: Normal density, no abnormal calcifications or inflammatory process. Spleen: Small low-density focus in the anterior aspect of the spleen may be residual related to prior splenic laceration/Katherin splenic fluid hematoma. Surgical clips in left upper quadrant vasculature. Kidneys: Normal size, contour and axis. Small nonobstructing stone lower pole right kidney. No obst ructive uropathy. Stable left renal cysts. No follow-up recommended. No suspicious masses seen. Adrenal glands: No masses seen. Lymph nodes: Within normal limits. Abdominal Aorta: Abdominal portion non-dilated. Atherosclerotic changes. Soft tissues: Unremarkable. Bladder: Somewhat limited evaluation due to under distension. No gross wall thickening. No evidence of a mass.12 x 8 millimeter stone seen on right side of bladder. Diverticulum noted at anterosuperio r aspect of bladder Bowel: Stomach unremarkable. No obstruction or bowel wall thickening. Appendix normal. High-density ingested material in colon. Increased stool in the rectum. Peritoneal cavity: No ascites, collection or mesenteric inflammatory response. Bones: Unremarkable for age.. Reproductive organs: Prostate is enlarged. IMPRESSION: Small nonobstructing stone near the lower pole of the right kidney. 12 millimeter stone in the posterior aspect of the bladder. Anterosuperior right-sided bladder diverticulum. Enlarged prostate. No suspicious renal mass. Stable renal cysts. No evidence of hydronephrosis. RADIATION DOSE DELIVERED: Total DLP DATA REPOSITORY: All CT scans at this facility are submitted to the National Radiology Data Registry (NRDR) Dose Index Registry (DIR) with the [employer] (ACR). RADIATION OPTIMIZATION: All CT scans at this facility use at least one of these dose optimization te chniques: automated exposure control; mA and/or kV adjustment per patient size (includes targeted exa ms where dose is matched to clinical indication); or iterative reconstruction.
[2024-04-20 09:06] LABS: CREATININE 1.2 mg/dL (0.70-1.30); Estimated GFR 62.67 (mL/min/1.73m2)
[2024-04-20] MEDS: Omnipaque 350 MG/ML 500 ML BTL-Imaging package IJ (09:21)
[2024-04-20] MEDS: Normal Saline - Diluent 50 ML VIAL IJ (09:22)
== END 2024-04-20 02:48 ==
LOC: DI 02:28
PROVIDERS: PCP Student in an Organized Health Care Education/Training Program; Visit Provider Nurse Practitioner Gerontology
DX: R31.9 Hematuria, unspecified (principal); N20.0 Calculus of kidney
CPT/HCPCS: 74178; 82565

== ENCOUNTER → 2024-04-28 13:44 | Outpatient (BNVA) | payer OTHER, SELFPAY | PROVIDERS: PCP Student in an Organized Health Care Education/Training Program; Referring Provider Student in an Organized Health Care Education/Training Program; Visit Provider Nurse Practitioner Gerontology | DX: R31.0 Gross hematuria (principal); R63.4 Abnormal weight loss | CPT/HCPCS: 99213 ==

== ENCOUNTER 2024-04-30 05:00 | Emergency (ER) | payer OTHER, SELFPAY ==
[2024-04-30 05:03] VITALS: PULSE 71; RESP 20; TEMP 36.5; O2SAT 98
--- NOTE | 2024-04-30 05:05 | ED.GENADUL_ITS ---
Discharge Plan Disposition Patient Disposition: Home Condition: Good Discharge Details Clinical Impression: Acute urinary retention, Encounter for Irving catheter replacement, Hematuria Primary Care Provider: Curry Contreras ED Provider: Paige Pena Home Meds and New Rx's Prescriptions: Continued albuterol sulfate 90 mcg/actuation HFA aerosol inhaler 2 puff inhalation Q6H PRN (Reason: shortness of breath or wheezing) Qty: 8.5 12RF Trelegy Ellipta 100-62.5-25 mcg blister with device 1 inh inhalation DAILY Qty: 60 5RF bisacodyl [Dulcolax (bisacodyl)] 5 mg tablet,delayed release (DR/EC) 5 mg PO ONCE Qty: 4 0RF Rx Instructions: Take per colonoscopy instructions provided by ordering providers office propranolol 120 mg capsule,extended release 24 hr 120 mg PO DAILY cholecalciferol (vitamin D3) 50 mcg (2,000 unit) capsule 50 mcg PO DAILY acetaminophen 500 mg Tablet 650 mg PO TID PRN PRNQty: 0 0RF varenicline 1 mg tablet 1 mg PO ONCE Discharge Instructions Instructions: How to Care for Your Irving Catheter, Blood in Urine (Hematuria), Adult ED Additional Instructions: You will need to follow up with urology. Call them today to schedule an appointment to follow-up on your visit here. We have also sent a referral. Keep the irving catheter in place until you see urology. Return to the emergency department for new or worsening symptoms including fever, lightheadedness, if urine is not draining from your catheter, if your catheter comes out and you are unable to pee, or if you have any other concerns. Referrals: Curry Contreras [Primary Care Provider] - [facility] General Mode of arrival: ambulatory . Date/Time Provider Initiated Documentation: 04/30/24 05:03 . Limitations to Documentation: no limitations . Information obtained by: patient and old records reviewed . HPI Narrative: 78yo M with hx of BPH, hematuria currently being worked up by urology presenting for inability to urinate. Not able to void since yesterday. Does have blood in his urine, no pain with urination. No fevers, chills, or flank pain. Reports that he has a kidney stone and may be having surgery for this 'soon'. Otherwise in his usual state of health with no abdominal pain, nausea, vomiting, diarrhea, chest pain, shortness of breath, or other concerns. Related Data Home Medications ?Medication ?Instructions ?Recorded ?Confirmed cholecalciferol (vitamin D3) 50 50 mcg PO DAILY 04/06/20 04/30/24 mcg (2,000 unit) capsule propranolol 120 mg capsule,24 120 mg PO DAILY 04/06/20 04/30/24 hr,extended release albuterol sulfate 90 mcg/actuation 2 puff inhalation Q6H PRN 02/04/22 04/30/24 aerosol inhaler shortness of breath or wheezing #8.5 grams fluticasone fur. 100 mcg-umeclid 1 inh inhalation DAILY #60 ea 05/16/22 04/30/24 62.5 mcg-vilant 25 mcg inhalat.powder (Trelegy Ellipta) acetaminophen 500 mg tablet 650 mg (1.3 x 500 mg) PO TID PRN 12/02/22 04/30/24 PRN #0 tabs bisacodyl 5 mg tablet,delayed 5 mg PO ONCE #4 tabs 08/21/23 04/30/24 release (Dulcolax (bisacodyl)) varenicline 1 mg tablet 1 mg PO ONCE 04/30/24 04/30/24 Previous Rx's ?Medication ?Instructions ?Recorded albuterol sulfate 90 mcg/actuation 2 puff inhalation Q6H PRN 02/04/22 aerosol inhaler shortness of breath or wheezing #8.5 grams fluticasone fur. 100 mcg-umeclid 1 inh inhalation DAILY #60 ea 05/16/22 62.5 mcg-vilant 25 mcg inhalat.powder (Trelegy Ellipta) acetaminophen 500 mg tablet 650 mg (1.3 x 500 mg) PO TID PRN 12/02/22 PRN #0 tabs bisacodyl 5 mg tablet,delayed 5 mg PO ONCE #4 tabs 08/21/23 release (Dulcolax (bisacodyl)) Allergies Allergy/AdvReac Type Severity Reaction Status Date / Time aspirin AdvReac Intermediate GI UPSET Verified 04/30/24 05:06 General Stated Complaint: Urinary NAWAF: 3 Review of Systems Narrative: see HPI Exam Narrative Exam Narrative: General: Alert, well appearing, well nourished, in no acute distress. Hard of hearing. Head: Normocephalic, atraumatic Neck: Trachea midline, ?Neck supple. ENT: ?MMM.? No oropharygeal lesions or exudate. Cardiac: ?RRR, no murmurs appreciated Resp: No respiratory distress. CTAB. Abd: ?Soft, non-distended, nontender : ?+ suprapubic tenderness and fullness. No CVA tenderness. Extremities: ?No deformities.? No peripheral edema. Neurologic: GCS 15. ? Sensation intact BLE, no saddle anesthesia. 5/5 strength bilateral LE. No midline spinal tenderness. Course Vital Signs Vital signs: Vital Signs Temperature 36.5 C 04/30/24 05:03 Pulse 71 04/30/24 05:03 Respiratory Rate 20 04/30/24 05:03 Pulse Oximetry 98 04/30/24 05:03 Temperature 36.5 C 04/30/24 05:03 Temperature Source Skin 04/30/24 05:03 Pulse 71 04/30/24 05:03 Respiratory Rate 20 04/30/24 05:03 Respiratory Effort Normal 04/30/24 05:05 Pulse Oximetry 98 04/30/24 05:03 Oxygen Delivery Method Room Air 04/30/24 05:03 Oxygen Flow Rate 0 04/30/24 05:03 Medical Decision Making 78yo M with hx of hematuria currently being worked up by urology presenting for inability to urinate. Not able to void since yesterday. Does have blood in his urine, no pain with urination. Otherwise well. Denies any back pain, numbness, or tingling to suggest spinal cord compression/cauda equina as reason for urinary retention; no indication for CT or MRI imaging. Urology visit note 04/28/24 reviewed: CTU showed Small nonobstructing stone near the lower pole of the right kidney. 12 millimeter stone in the posterior aspect of the bladder. , plan at that visit for cytoscopy for hematuria workup vs OR for hematuria workup and bladder stone removal wtih need for review by pulmonology/anesthesia to clear for OR. Hypertensive on arrival, vital signs otherwise reassuring. Suprapubic fullness on exam. No tachycardia or lightheadedness to suggest hemodynamically significant bleeding; would not get labs at this time. -Bladder scan ~700. Patient attempted to void in the ED but unable. -Irving placed and ~600cc pink urine drained. No clots. UA + hematuria, not infected. Advised to followup with urology EDA, referral placed. Repeat VS normalized after urinary retention relieved. Discharged home with irving; discharge instructions and return precautions were reviewed with patient who verbalized understanding. All questions were answered and he is in full agreement with the plan. Medical Records Medical records reviewed: Yes I reviewed the patient's medical records. Medical records narrative: urology visit note 04/28/24 Lab Data Lab results reviewed: Yes I reviewed the patient's lab results. Labs: Laboratory Tests Range/Units 04/30/24 06:08 Urine Color (Yellow) Yellow Urine Clarity (Clear) Sl Cloudy Urine pH (5-8) 7.0 Ur Specific [place] (1.005-1.025) 1.025 Urine Protein (Neg-Trace) mg/dL 100 H Urine Ketones (Negative) mg/dL Negative Urine Blood (Negative) Large H Urine Nitrite (Negative) Negative Urine Bilirubin (Negative) Negative Urine Urobilinogen (Up to 0.2) mg/dL 1.0 H Ur Leukocyte Esterase (Negative) Negative Urine RBC (0-2) HPF >50 H Urine WBC (0-5) HPF Negative Ur Epithelial Cells (Negative) HPF Rare Urine Crystals (Negative) HPF Negative Urine Bacteria (Negative) HPF Rare Urine Casts (Negative) LPF Negative Urine Mucus (Negative) Negative Ur Culture Indicated? No Urine Glucose (Negative) mg/dL Negative Quality:SDOH Health Related Social Needs: No Data to Display PFSH All Active Problems (Updated 04/30/24 @ 06:21 by Paige Pena MD) Hematuria (Acute) Encounter for Irving catheter replacement (Acute) Acute urinary retention (Acute) Gross hematuria (Acute) Family history of colon cancer (Acute) Anemia (Chronic) Sacral fracture (Acute) Nasal bone fracture (Acute) Advanced care planning/counseling discussion (Acute) TBI (traumatic brain injury) (Acute) Subdural hematoma (Acute) COVID-19 (Acute) Spleen laceration (Acute) Acute cholecystitis (Acute) Bleeding in brain (Acute) Abdominal pain (Acute) Acute blood loss anemia (Acute) Ruptured spleen (Acute) Lethargy (Acute) Fall (Acute) Minor contusion of spleen (Acute) Subarachnoid bleed (Acute) Lumbar transverse process fracture (Acute) 3 vertebrae Nicotine dependence, cigarettes, uncomplicated (Acute) Constipation (Acute) ROE and COPD overlap syndrome (Acute) Rib pain on right side (Acute) Fall as cause of accidental injury at home as place of occurrence (Acute) Anemia, iron deficiency (Acute) Weight loss, abnormal (Acute) Tubular adenoma (Acute 01/29/16) Mass of vallecula (Acute) Pharyngeal dysphagia (Acute) Aspiration into lower respiratory tract (Acute) Vocal cord dysfunction (Acute) Vocal cord paralysis (Acute) Ribs, multiple fractures (Acute 06/05/13) Ribs 7 through 9 Atelectasis (Acute 06/05/13) COPD (chronic obstructive pulmonary disease) (Chronic) Jun 24, 2012 PFT's with FEV1 60% predicted, severe obstrtuctive disease with no significatn bronchodilator response. Tobacco abuse (Chronic) Ongoing tobacco use, nicotiune replacement not helpful, Chntix helped in the past but could not afford. PFT's performed 07/03/12 with REV1 60% predicted, severe obstrructive disease with no significant bronchodilator response. Sleep apnea (Chronic) Treated with CPAP. Essential tremor (Chronic) Chronic back pain (Chronic) Weight loss (Acute) Dysphagia (Acute) Hyperlipidemia (Chronic) Medical History History of nephrolithiasis Palliative care encounter Shoulder pain, left Polyuria History of broken collarbone right collarbone fx with hardware- per pt 6 years ago Chronic low back pain Colon polyps 01/08/19 w/ Dr Marya St[place], [place], tubular adenoma, repeat 3 yrs 01/29/16 w/ Dr. Aleyda Irizarry, 4 tubular adenoma's, repeat 3 years Cigarette smoker Tremor COPD (chronic obstructive pulmonary disease) Hearing loss Sleep apnea Surgical History Hx of surgical procedure clavicle repair Hx of thumb surgery 1973. [address] in place Family History Mother Colon cancer Social History Smoking/Tobacco Use Status: Current every day Tobacco Type: cigarettes Tobacco: How many years used: 50 Smoking risk assessment performed?: Yes Alcohol Intake: never Drug use: Never Substance use type: does not use Housing: house Do you feel safe at home: Yes (unable to ask privately) Do you feel safe in your relationship?: Yes Additional Social history:
[2024-04-30 05:06] VITALS: BP 187/107
[2024-04-30 05:10] VITALS: BP 183/95; RESP 18; O2SAT 98
[2024-04-30] MEDS: Lidocaine 2% Jelly 6 ML SYR ×2 (05:35→06:06)
[2024-04-30 06:12] LABS: Bilirubin Negative (Negative); Blood Large (Negative); Clarity Sl Cloudy (Clear); Glucose Negative (Negative); Ketones Negative (Negative); Leukocyte Esterase Negative (Negative); Nitrite Negative (Negative); Specific Gravity 1.025 (1.005-1.025)
[2024-04-30 06:16] LABS: Bacteria Rare HPF (Negative); C & S Indicated? No; Casts Negative LPF (Negative); Crystals Negative HPF (Negative); Epithelial Cells Rare HPF (Negative); Mucus Negative (Negative); RBC >50 HPF (0-2); WBC Negative HPF (0-5)
[2024-04-30 06:28] VITALS: BP 109/68; PULSE 69; RESP 20; TEMP 36.9; O2SAT 99
[2024-04-30 06:42] VITALS: BP 109/68; PULSE 69; RESP 20; O2SAT 99
--- OUTSIDE RECORDS SUMMARY | 2024-04-30 06:47 | XMS_ITS | Data Portability ---
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 Care Assessment Encounter Date Assessment Date Assessment LastModified by Organization Details LastModified Time 08/05/2023 08/05/2023 Patient presente d to office today for their Medicare Annual Wellness Visit. Education was provided on healthy nutrition, including a diet rich in fruits and vegetables, minimizing simple carbohydrates, salt, and saturated fats. Encouraged regular cardiovascular exercise such as walking at least 30 minutes daily, 5 times per week. Emphasized preventive health measures and educated pt on fall prevention and community-based lifestyle interventions to help reduce health risks and promote healthy living. Personalized prevention plan (PPP) completed and reviewed with patient. Patient was given copy of PPP at conclusion of visit. [email or web address] Not available 08/05/2023 13:10:48 Plan of Treatment Reminders Order Date Submit Date Provider Last Modified By Organization Details Last Modified Time Details Appointments Follow Up 2024 10:00A Nayely Contreras Not available Not available Not available Lab hepatitis C virus Ab, serum 2023 024 [email or web address] [facility] (Registration ), [address] [place] [address] [place], [address], 08/12/2023 11:48:58 lipid panel, serum 2023 024 [email or web address] [facility] (Registration ), [address] [place] [address] [place], [address], 12/24/2023 09:30:00 CBC 2023 024 [facility] (Registration ), [address] [place] [address] [place], [address], 08/05/2023 19:40:25 CBC w/ auto diff - 1 SST, 1 LAV 2023 024 [facility] (Registration ), [address] [place] [address] [place], [address], 01/01/2024 18:51:45 CMP, serum or plasma 2023 024 [facility] (Registration ), [address] [place] [address] [place], [address], 01/01/2024 19:15:42 urinalysi s, dipstick 2023 024 [email or web address] [facility], [address] , [place], [address], 01/01/2024 14:48:17 culture + sensitivi ty, urine - 1 Urine 2023 024 [email or web address] [facility] (Registration ), [address] [place] [address] [place], [address], 01/08/2024 07:52:26 Referral urologist referral - Pt, 78-Male, 60 year smoking history, currently smoking still, with positive hematuria in office today, mild protein, who had a couple of weeks ago called with report of large clump of unknown material come out in the urine. He does have history of stones, but no reported typical stone pain in last few years per patient report. Sending for consultat ion regarding sediment in urine. Urine microscop y and C/S sent over to [facility] for analysis. 2023 024 ROSALIND Ragsdale MD, [address] [place] [address] [place], [address], 04/19/2024 14:24:46 Procedures None recorded. Surgeries None recorded. Imaging LDCT, chest, for lung cancer screening - 77 yo smoker, 50+ pack years 2023 024 [facility] (Radiology), [address] [place] [address] [place], [address], 12/05/2023 14:45:27 Medication Orders propranol ol ER 120 mg capsule,2 4 hr,extend ed release [address], [address] [place] [address], [address], [address], 01/01/2024 14:48:17 famotidin e 40 mg tablet 2023 024 [facility], [address] [place] [address], [address], [place], [address], 02/18/2024 16:23:31 Chantix Starting Month Box 0.5 mg (11)-1 mg (42) tablets in dose pack [address], [address] [place] [address], [address], [place], [address], 02/18/2024 16:23:26 Chantix 1 mg tablet 2023 024 [facility], [address] [place] [address], [address], [place], [address], 02/18/2024 16:23:30 Patient TargetsNo targets recorded. Patient Instructions Encounter Date Encounter Id Patient Instructions Last Modified By Organization Details Last Modified Time 08/05/2023 [id number] follow up with surgery about colonoscopy consider RSV vaccine at the pharmacy Not available 08/05/2023 14:10:46 Discussed and explained advance directives such as standard forms to the {{patient* caregi viet patient and caregiver}}. Face to face discussion lasted for a duration of __1_ minutes. Has on file Not available 08/05/2023 14:06:00 02/18/2024 [id number] 3-months sent. -Do the starter pack first - You have 2-month supply of the full dose to take after the starter pack. [email or web address] Not available 02/18/2024 15:16:29 Reason for Referral Urologist Referral for Histo ry of hematuria hematuria/sediment in urine/60-year smoker Pt, 78-Male, 60 year smoking history, currently smoking still, with positive hematuria in office today, mild protein, who had a couple of weeks ago called with report of large clump of unknown material come out in the urine. He does have history of stones, but no reported typical stone pain in last few years per patient report. Sending for consultation regarding sediment in urine. Urine microscopy and C/S sent over to [facility] for analysis. Referring Physician: Jason Contreras, Family Medicine, Encounter Date: 01/01/2024 Results Created Date Observation Date Name Description Value Unit Range Abnormal Flag Note LastModifiedBy Organization Detail LastModifiedTime 08/05/19 24 08/05/2023 COMPL ETE BLOOD COUNT NO DIFF WBC 7.47 10_3/ uL 4.4-10 .8 normal Not Available [address] [facility] [place], [address] 08/05/2023 19:40:25 08/05/19 24 08/05/2023 COMPL ETE BLOOD COUNT NO DIFF RBC 4.88 10_6/ uL 4.36-5 .78 normal Not Available [address] [place], [address] 08/05/2023 19:40:25 08/05/19 24 08/05/2023 COMPL ETE BLOOD COUNT NO DIFF HGB 13.6 g/dL 13.5-1 7.5 normal Not Available [address] [place], [address] 08/05/2023 19:40:25 08/05/19 24 08/05/2023 COMPL ETE BLOOD COUNT NO DIFF HCT 41.4 % 40.0-5 0.0 normal Not Available [address] [place], [address] 08/05/2023 19:40:25 08/05/19 24 08/05/2023 COMPL ETE BLOOD COUNT NO DIFF MCV 85 fL 80-95 normal Not Available Maria Fernanda [address] [place], [address] 08/05/2023 19:40:25 08/05/19 24 08/05/2023 COMPL ETE BLOOD COUNT NO DIFF MCH 27.9 pg 27.0-3 3.0 normal Not Available [address] [place], [address] 08/05/2023 19:40:25 08/05/19 24 08/05/2023 COMPL ETE BLOOD COUNT NO DIFF MCHC 32.9 % 32.0-3 6.0 normal Not Available [address] [place], [address] 08/05/2023 19:40:25 08/05/19 24 08/05/2023 COMPL ETE BLOOD COUNT NO DIFF RDW 15.5 % 11.8-1 4.1 high Not Available [address] [place], [address] 08/05/2023 19:40:25 08/05/19 24 08/05/2023 COMPL ETE BLOOD COUNT NO DIFF platelet count 369 10_3/ uL 130-40 0 normal Not Available [address] [place], [address] 08/05/2023 19:40:25 08/05/19 24 08/05/2023 COMPL ETE BLOOD COUNT NO DIFF MPV 10.9 fL 8.0-11 .0 normal Not Available [address] [place], [address] 08/05/2023 19:40:25 08/05/19 24 08/05/2023 LIPID 2 cholesterol 138 mg/dL <200 Not Available [place] [address] [place], [address] 08/05/2023 20:08:31 08/05/19 24 08/05/2023 LIPID 2 triglyceride 73 mg/dL <150 Not Available [address] [place], [address] 08/05/2023 20:08:31 08/05/19 24 08/05/2023 LIPID 2 HDL cholesterol 49 mg/dL 40-60 Not Available Ruth Ann angeles [address] [place], [address] 08/05/2023 20:08:31 08/05/19 24 08/05/2023 LIPID 2 calculated LDL 75 mg/dL <100 Natio nal Mecca stero l Educa tion Progr am (NCEP -ATPI II) class ifica tions : Mecca stero l <200 mg/dL Kaleigh able Mecca stero l 200-2 39 mg/dL Borde rline High Mecca stero l >or=2 40 mg/dL High HDL <40 mg/dL Low HDL >or=6 0 mg/dL High LDL <100 mg/dL Optim al LDL 100-1 29 mg/dL Near Optim al/Ab ove Optim al LDL 130-1 59 mg/dL Borde rline High LDL 160-1 89 mg/dL High LDL >or=1 90 mg/dL Very High *The above refer ence range is for adult s 18 years or older . Not Available [address] [place], [address] 08/05/2023 20:08:31 08/05/19 24 08/06/2023 HEPAT ITIS C AB W RFLX HCV PCR hepatitis C Ab W rflx HCV PCR Negati ve negati ve Test perfo rmed or refer red by [facility] [address] [facility] [place] [address] Not Available [address] [place], [address] 08/07/2023 09:19:07 01/01/20 24 01/01/2024 COMPL ETE BLOOD COUNT W/DIF F WBC 7.47 10_3/ uL 4.4-10 .8 normal Not Available [address] [place], [address] 01/01/2024 18:51:45 01/01/20 24 01/01/2024 COMPL ETE BLOOD COUNT W/DIF F RBC 4.47 10_6/ uL 4.36-5 .78 normal Not Available [address] [place], [address] 01/01/2024 18:51:45 01/01/20 24 01/01/2024 COMPL ETE BLOOD COUNT W/DIF F HGB 12.2 g/dL 13.5-1 7.5 low Not Available [address] [place], [address] 01/01/2024 18:51:45 01/01/20 24 01/01/2024 COMPL ETE BLOOD COUNT W/DIF F HCT 37.3 % 40.0-5 0.0 low Not Available [address] [place], [address] 01/01/2024 18:51:45 01/01/20 24 01/01/2024 COMPL ETE BLOOD COUNT W/DIF F MCV 83 fL 80-95 normal Not Available [address] [place], [address] 01/01/2024 18:51:45 01/01/20 24 01/01/2024 COMPL ETE BLOOD COUNT W/DIF F MCH 27.3 pg 27.0-3 3.0 normal Not Available [address] [place], [address] 01/01/2024 18:51:45 01/01/20 24 01/01/2024 COMPL ETE BLOOD COUNT W/DIF F MCHC 32.7 % 32.0-3 6.0 normal Not Available [address] [place], [address] 01/01/2024 18:51:45 01/01/20 24 01/01/2024 COMPL ETE BLOOD COUNT W/DIF F RDW 16.9 % 11.8-1 4.1 high Not Available [address] [place], [address] 01/01/2024 18:51:45 01/01/20 24 01/01/2024 COMPL ETE BLOOD COUNT W/DIF F platelet count 351 10_3/ uL 130-40 0 normal Not Available [address] [place], [address] 01/01/2024 18:51:45 01/01/20 24 01/01/2024 COMPL ETE BLOOD COUNT W/DIF F MPV 10.6 fL 8.0-11 .0 normal Not Available [address] [place], [address] 01/01/2024 18:51:45 01/01/20 24 01/01/2024 COMPL ETE BLOOD COUNT W/DIF F neutrophils % 64.9 % Not Available [address] [place], [address] 01/01/2024 18:51:45 01/01/20 24 01/01/2024 COMPL ETE BLOOD COUNT W/DIF F lymphocytes % 18.3 % Not Available [address] [place], [address] 01/01/2024 18:51:45 01/01/20 24 01/01/2024 COMPL ETE BLOOD COUNT W/DIF F monocytes % 12.4 % Not Available [address] [place], [address] 01/01/2024 18:51:45 01/01/20 24 01/01/2024 COMPL ETE BLOOD COUNT W/DIF F eosinophils % 2.9 % Not Available [address] [place], [address] 01/01/2024 18:51:45 01/01/20 24 01/01/2024 COMPL ETE BLOOD COUNT W/DIF F basophils % 1.2 % Not Available [address] [place], [address] 01/01/2024 18:51:45 01/01/20 24 01/01/2024 COMPL ETE BLOOD COUNT W/DIF F immature grans % 0.3 % Not Available [address] [place], [address] 01/01/2024 18:51:45 01/01/20 24 01/01/2024 COMPL ETE BLOOD COUNT W/DIF F nucleated RBC 0.0 % 0.0-0. 3 normal Not Available [address] [place], [address] 01/01/2024 18:51:45 01/01/20 24 01/01/2024 COMPL ETE BLOOD COUNT W/DIF F absolute neutrophil count 4.84 10_3/ uL 1.2-6. 7 normal Not Available [address] [place], [address] 01/01/2024 18:51:45 01/01/20 24 01/01/2024 COMPL ETE BLOOD COUNT W/DIF F absolute lymphocyte count 1.37 10_3/ uL 1.2-3. 4 normal Not Available [address] [place], [address] 01/01/2024 18:51:45 01/01/20 24 01/01/2024 COMPL ETE BLOOD COUNT W/DIF F absolute monocyte count 0.93 10_3/ uL 0.1-0. 8 high Not Available [address] [place], [address] 01/01/2024 18:51:45 01/01/20 24 01/01/2024 COMPL ETE BLOOD COUNT W/DIF F absolute eosinophil count 0.22 10_3/ uL 0.0-0. 7 normal Not Available [address] [place], [address] 01/01/2024 18:51:45 01/01/20 24 01/01/2024 COMPL ETE BLOOD COUNT W/DIF F absolute basophil count 0.09 10_3/ uL 0.0-0. 2 normal Not Available [address] [place], [address] 01/01/2024 18:51:45 01/01/20 24 01/01/2024 COMPR EHENS VANESSA METAB OLIC PANEL calcium 8.8 mg/dL 8.5-10 .1 normal Not Available [address] [place], [address] 01/01/2024 19:15:42 01/01/20 24 01/01/2024 COMPR EHENS VANESSA METAB OLIC PANEL glucose 124 mg/dL 74-106 high Not Available Maria Fernanda de anda [address] [place], [address] 01/01/2024 19:15:42 01/01/20 24 01/01/2024 COMPR EHENS VANESSA METAB OLIC PANEL BUN 22 mg/dL 7-18 high Not Available Maria Fernanda de anda [address] [place], [address] 01/01/2024 19:15:42 01/01/20 24 01/01/2024 COMPR EHENS VANESSA METAB OLIC PANEL creatinine 1.0 mg/dL 0.70-1 .30 normal Not Available [address] [place], [address] 01/01/2024 19:15:42 01/01/20 24 01/01/2024 COMPR EHENS VANESSA METAB OLIC PANEL estimated GFR 78.00 mL/min /1.73m 2 The eGFR is calcu lated from a serum creat inine using the CKD-E PI 2020 equat ion. Other varia bles requi red for the equat ion are gende r and age; this equat ion does not inclu de a race coeff icien t. This equat ion has simil ar overa ll perfo rmanc e to previ ous equat ions excep t value s may diffe r, in parti cular , in patie nts with highe r value s of eGFR and young er-ag ed adult s. Not Available [address] [place], [address] 01/01/2024 19:15:42 01/01/20 24 01/01/2024 COMPR EHENS VANESSA METAB OLIC PANEL total protein 7.5 g/dL 6.4-8. 2 normal Not Available [address] [place], [address] 01/01/2024 19:15:42 01/01/20 24 01/01/2024 COMPR EHENS VANESSA METAB OLIC PANEL albumin 2.9 g/dL 3.4-5. 0 low Not Available [address] [place], [address] 01/01/2024 19:15:42 01/01/20 24 01/01/2024 COMPR EHENS VANESSA METAB OLIC PANEL bilirubin, total 0.40 mg/dL 0.2-1. 0 normal Not Available [address] [place], [address] 01/01/2024 19:15:42 01/01/20 24 01/01/2024 COMPR EHENS VANESSA METAB OLIC PANEL alk phos 98 U/L 46-116 normal Not Available [address] [place], [address] 01/01/2024 19:15:42 01/01/20 24 01/01/2024 COMPR EHENS VANESSA METAB OLIC PANEL sodium 138 mmol/ L 136-14 5 normal Not Available [address] [place], [address] 01/01/2024 19:15:42 01/01/20 24 01/01/2024 COMPR EHENS VANESSA METAB OLIC PANEL potassium 4.0 mmol/ L 3.5-5. 1 normal Not Available [address] [place], [address] 01/01/2024 19:15:42 01/01/20 24 01/01/2024 COMPR EHENS VANESSA METAB OLIC PANEL chloride 102 mmol/ L 98-107 normal Not Available [address] [place], [address] 01/01/2024 19:15:42 01/01/20 24 01/01/2024 COMPR EHENS VANESSA METAB OLIC PANEL CO2 26.8 mmol/ L 21.0-3 2.0 normal Not Available [address] [place], [address] 01/01/2024 19:15:42 01/01/20 24 01/01/2024 COMPR EHENS VANESSA METAB OLIC PANEL anion gap 9.2 mmol/ L 3-11 normal Not Available [address] [place], [address] 01/01/2024 19:15:42 01/01/20 24 01/01/2024 COMPR EHENS VANESSA METAB OLIC PANEL AST 20 U/L 15-37 normal Not Available Maria Fernanda de anda [address] [place], [address] 01/01/2024 19:15:42 01/01/20 24 01/01/2024 COMPR EHENS VANESSA METAB OLIC PANEL ALT 24 U/L 16-63 normal Not Available Maria Fernanda de anda [address] [place], [address] 01/01/2024 19:15:42 01/01/20 24 01/03/2024 URINE CULTU RE urine culture Urine Cultu re ACTIO N IDENT IFICA TION TO FOLLO W APPEA PAGE Gram Posit vanessa Bello COLON Y COUNT Not Available [address] [place], [address] 01/03/2024 08:17:36 01/01/20 24 01/03/2024 URINE CULTU RE urine culture colon ies/m L 50,00 0 - 100,0 00 Day 1 Resul t ISOLA SENAIT BELOW O:GPF (ORGA NISM ID: [id number]) - GRAM POSIT VANESSA BELLO Urine Cultu re (ORGA NISM ID: [id number]) - COLON Y COUNT (ORGA NISM ID: 1.1) - 50,00 0 - 100,0 00 Not Available [address] [place], [address] 01/03/2024 08:17:36 01/01/20 24 01/04/2024 URINE CULTU RE urine culture Urine Cultu re ACTIO N IDENT IFICA TION TO FOLLO W ACTIO N IDENT IFICA TION TO FOLLO W APPEA PAGE Gram Posit vanessa Bello APPEA PAGE Gram Posit vanessa Bello COLON Y COUNT Not Available [address] [place], [address] 01/04/2024 08:59:58 01/01/20 24 01/04/2024 URINE CULTU RE urine culture colon ies/m L 50,00 0 - 100,0 00 COLON Y COUNT 50,00 0 - 100,0 00 Day 1 Resul t ISOLA SENAIT BELOW Day 2 Resul t ISOLA SENAIT BELOW O:GPF (ORGA NISM ID: [id number]) - GRAM POSIT VANESSA BELLO Urine Cultu re (ORGA NISM ID: [id number]) - COLON Y COUNT (ORGA NISM ID: 1.1) - 50,00 0 - 100,0 00 Not Available [address] [place], [address] 01/04/2024 08:59:58 01/01/20 24 01/05/2024 URINE CULTU RE urine culture Urine Cultu re Proba ble conta minat ed colle ction . ACTIO N IDENT IFICA TION TO FOLLO W ACTIO N IDENT IFICA TION TO FOLLO W APPEA PAGE Gram Posit vanessa Bello APPEA PAGE Gram Posit vanessa Bello APPEA PAGE Mixed Gram Posit vanessa Bello COLON Y COUNT Not Available [address] , [place], [address] 01/05/2024 09:44:26 01/01/20 24 01/05/2024 URINE CULTU RE urine culture colon ies/m L 50,00 0 - 100,0 00 COLON Y COUNT 50,00 0 - 100,0 00 COLON Y COUNT 50,00 0 - 100,0 00 Day 1 Resul t ISOLA SENAIT BELOW Day 2 Resul t ISOLA SENAIT BELOW Day 3 Resul t ISOLA SENAIT BELOW O:GPF M (ORGA NISM ID: [id number]) - GRAM POSIT VANESSA BELLO ,MIXE D Urine Cultu re (ORGA NISM ID: [id number]) - COLON Y COUNT (ORGA NISM ID: 1.1) - 50,00 0 - 100,0 00 Not Available [address] , [place], [address] 01/05/2024 09:44:26 01/01/20 24 01/01/2024 urina lysis , dipst ick Leukocytes Modera te Not Available [facility] [address], [place], [address], 01/01/2024 14:03:10 01/01/20 24 01/01/2024 urina lysis , dipst ick Nitrite negati ve Not Available [facility] [address], [place], [address], 01/01/2024 14:03:10 01/01/20 24 01/01/2024 urina lysis , dipst ick Urobilinogen .2 Not Available [facility] [address], [place], [address], 01/01/2024 14:03:10 01/01/20 24 01/01/2024 urina lysis , dipst ick Protein Trace Not Available [facility] [address], [place], [address], 01/01/2024 14:03:10 01/01/20 24 01/01/2024 urina lysis , dipst ick pH 5.0 Not Available [facility] [address], [place], [address], 01/01/2024 14:03:10 01/01/20 24 01/01/2024 urina lysis , dipst ick Blood Large Not Available [facility] [address], [place], [address], 01/01/2024 14:03:10 01/01/20 24 01/01/2024 urina lysis , dipst ick Specific Walker 1.015 Not Available [facility] [address], [place], [address], 01/01/2024 14:03:10 01/01/20 24 01/01/2024 urina lysis , dipst ick Ketone Trace Not Available [facility] [address], [place], [address], 01/01/2024 14:03:10 01/01/20 24 01/01/2024 urina lysis , dipst ick Bilirubin Modera te Not Available [facility] [address], [place], [address], 01/01/2024 14:03:10 01/01/20 24 01/01/2024 urina lysis , dipst ick Glucose Negati ve Not Available [facility] [address], [place], [address], 01/01/2024 14:03:10 01/01/20 24 01/01/2024 urina lysis , dipst ick Appearance Slight ly Cloudy Not Available [facility] [address], [place], [address], 01/01/2024 14:03:10 01/01/20 24 01/01/2024 urina lysis , dipst ick Color Yellow Not Available [facility] [address], [place], [address], 01/01/2024 14:03:10 04/13/20 24 04/15/2024 URINE CULTU RE urine culture Urine Cultu re Proba ble conta minat ed colle ction ACTIO N IDENT IFICA TION TO FOLLO W APPEA PAGE Gram Posit vanessa Bello APPEA PAGE Mixed Gram Posit vanessa Bello APPEA PAGE Mixed Gram Posit vanessa Bello COLON Y COUNT Not Available [address] [facility] [place], [address] 04/15/2024 10:04:55 04/13/20 24 04/15/2024 URINE CULTU RE urine culture colon ies/m L >100, 000 COLON Y COUNT <10,0 00 COLON Y COUNT >100, 000 Day 1 Resul t ISOLA SENAIT BELOW Day 2 Resul t ISOLA SENAIT BELOW O:GPF M (ORGA NISM ID: [id number]) - GRAM POSIT VANESSA BELLO ,MIXE D Urine Cultu re (ORGA NISM ID: 1.1) - COLON Y COUNT (ORGA NISM ID: 1.1) - >100, 000 Not Available [address] [place], [address] 04/15/2024 10:04:55 04/13/2004/13/2024 MICRO SCOPI C FINDI NGS WBC >50 hpf 0-5 abnormal Not Available [address] [place], [address] 04/13/2024 12:55:01 04/13/2004/13/2024 MICRO SCOPI C FINDI NGS RBC >50 hpf 0-2 abnormal Not Available [address] [place], [address] 04/13/2024 12:55:01 04/13/2004/13/2024 MICRO SCOPI C FINDI NGS epithelial cells Rare hpf negati ve Not Available [address] [place], [address] 04/13/2024 12:55:01 04/13/2004/13/2024 MICRO SCOPI C FINDI NGS other cells Negati ve negati ve Not Available [address] [place], [address] 04/13/2024 12:55:01 04/13/2004/13/2024 MICRO SCOPI C FINDI NGS bacteria Many hpf negati ve Not Available [address] [place], [address] 04/13/2024 12:55:01 04/13/2004/13/2024 MICRO SCOPI C FINDI NGS crystals Negati ve hpf negati ve Not Available [address] [place], [address] 04/13/2024 12:55:01 04/13/2004/13/2024 MICRO SCOPI C FINDI NGS mucus Negati ve negati ve Not Available [address] [place], [address] 04/13/2024 12:55:01 04/13/2004/13/2024 MICRO SCOPI C FINDI NGS casts Negati ve lpf negati ve Not Available [address] [place], [address] 04/13/2024 12:55:01 04/13/2004/13/2024 MICRO SCOPI C FINDI NGS C S indicated? C S Done As Ordere d Not Available [facility] [address] [place], [address] 04/13/2024 12:55:01 04/13/2004/13/2024 URINA LYSIS color Yellow yellow Not Available Maria Fernanda de anda [address] [place], [address] 04/13/2024 12:55:00 04/13/2004/13/2024 URINA LYSIS clarity Cloudy clear Not Available Maria Fernanda de anda [address] [place], [address] 04/13/2024 12:55:00 04/13/2004/13/2024 URINA LYSIS specific gravity 1.020 1.005- 1.025 normal Not Available [address] [place], [address] 04/13/2024 12:55:00 04/13/2004/13/2024 URINA LYSIS pH 6.5 5-8 normal Not Available Maria Fernanda de anda [address] [place], [address] 04/13/2024 12:55:00 04/13/2004/13/2024 URINA LYSIS leukocyte esterase Modera te negati ve abnormal Not Available [address] [place], [address] 04/13/2024 12:55:00 04/13/2004/13/2024 URINA LYSIS nitrite Negati ve negati ve Not Available [address] [place], [address] 04/13/2024 12:55:00 04/13/2004/13/2024 URINA LYSIS protein 30 mg/dL neg-tr william abnormal Not Available [address] [place], [address] 04/13/2024 12:55:00 04/13/2004/13/2024 URINA LYSIS glucose Negati ve mg/dL negati ve Not Available [address] [place], [address] 04/13/2024 12:55:00 04/13/2004/13/2024 URINA LYSIS ketones Negati ve mg/dL negati ve Not Available [address] [place], [address] 04/13/2024 12:55:00 04/13/2004/13/2024 URINA LYSIS urobilinogen 2.0 mg/dL up to 0.2 abnormal Not Available [address] [place], [address] 04/13/2024 12:55:00 04/13/2004/13/2024 URINA LYSIS bilirubin Negati ve negati ve Not Available [address] [place], [address] 04/13/2024 12:55:00 04/13/2004/13/2024 URINA LYSIS blood Large negati ve abnormal Not Available [address] [place], [address] 04/13/2024 12:55:00 04/13/2004/13/2024 URINA LYSIS color Yellow yellow Not Available Maria Fernanda de anda [address] [place], [address] 04/13/2024 12:52:59 04/13/2004/13/2024 URINA LYSIS clarity Cloudy clear Not Available Maria Fernanda de anda [address] [place], [address] 04/13/2024 12:52:59 04/13/2004/13/2024 URINA LYSIS specific gravity 1.020 1.005- 1.025 normal Not Available [address] [place], [address] 04/13/2024 12:52:59 04/13/2004/13/2024 URINA LYSIS pH 6.5 5-8 normal Not Available Maria Fernanda de anda [address] [place], [address] 04/13/2024 12:52:59 04/13/2004/13/2024 URINA LYSIS leukocyte esterase Modera te negati ve abnormal Not Available [address] [place], [address] 04/13/2024 12:52:59 04/13/2004/13/2024 URINA LYSIS nitrite Negati ve negati ve Not Available [address] [place], [address] 04/13/2024 12:52:59 04/13/2004/13/2024 URINA LYSIS protein 30 mg/dL neg-tr william abnormal Not Available [address] [place], [address] 04/13/2024 12:52:59 04/13/2004/13/2024 URINA LYSIS glucose Negati ve mg/dL negati ve Not Available [address] [place], [address] 04/13/2024 12:52:59 04/13/2004/13/2024 URINA LYSIS ketones Negati ve mg/dL negati ve Not Available [address] [place], [address] 04/13/2024 12:52:59 04/13/2004/13/2024 URINA LYSIS urobilinogen 2.0 mg/dL up to 0.2 abnormal Not Available [address] [place], [address] 04/13/2024 12:52:59 04/13/2004/13/2024 URINA LYSIS bilirubin Negati ve negati ve Not Available [address] [place], [address] 04/13/2024 12:52:59 04/13/2004/13/2024 URINA LYSIS blood Large negati ve abnormal Not Available [address] [place], [address] 04/13/2024 12:52:59 04/13/2004/14/2024 URINE CULTU RE urine culture Urine Cultu re ACTIO N IDENT IFICA TION TO FOLLO W APPEA PAGE Gram Posit vanessa Bello APPEA PAGE Mixed Gram Posit vanessa Bello COLON Y COUNT Not Available [address] [place], [address] 04/14/2024 12:52:14 04/13/2004/14/2024 URINE CULTU RE urine culture colon ies/m L >100, 000 COLON Y COUNT <10,0 00 Day 1 Resul t ISOLA SENAIT BELOW O:GPF (ORGA NISM ID: 1.1) - GRAM POSIT VANESSA BELLO Urine Cultu re (ORGA NISM ID: 1.1) - COLON Y COUNT (ORGA NISM ID: 1.1) - >100, 000 O:GPF M (ORGA NISM ID: 1.2) - GRAM POSIT VANESSA BELLO ,MIXE D Urine Cultu re (ORGA NISM ID: 1.2) - COLON Y COUNT (ORGA NISM ID: 1.2) - <10,0 00 Not Available [address] [place], [address] 04/14/2024 12:52:14 04/20/2004/20/2024 CREAT ININE creatinine 1.2 mg/dL 0.70-1 .30 normal Not Available [address] [place], [address] 04/20/2024 09:11:46 04/20/2004/20/2024 CREAT ININE estimated GFR 62.67 mL/min /1.73M 2 The eGFR is calcu lated from a serum creat inine using the CKD-E PI 2020 equat ion. Other varia bles requi red for the equat ion are gende r and age; this equat ion does not inclu de a race coeff icien t. This equat ion has simil ar overa ll perfo rmanc e to previ ous equat ions excep t value s may diffe r, in parti cular , in patie nts with highe r value s of eGFR and young er-ag ed adult s. Not Available [address] [place], [address] 04/20/2024 09:11:46 04/30/2004/30/2024 MICRO SCOPI C FINDI NGS WBC Negati ve hpf 0-5 Not Available [address] [place], [address] 04/30/2024 06:21:18 04/30/20 24 04/30/2024 MICRO SCOPI C FINDI NGS RBC >50 hpf 0-2 abnormal Not Available [address] [place], [address] 04/30/2024 06:21:18 04/30/20 24 04/30/2024 MICRO SCOPI C FINDI NGS epithelial cells Rare hpf negati ve Not Available [address] [place], [address] 04/30/2024 06:21:18 04/30/20 24 04/30/2024 MICRO SCOPI C FINDI NGS bacteria Rare hpf negati ve Not Available [address] [place], [address] 04/30/2024 06:21:18 04/30/20 24 04/30/2024 MICRO SCOPI C FINDI NGS crystals Negati ve hpf negati ve Not Available [address] [place], [address] 04/30/2024 06:21:18 04/30/2004/30/2024 MICRO SCOPI C FINDI NGS mucus Negati ve negati ve Not Available [address] [place], [address] 04/30/2024 06:21:18 04/30/2004/30/2024 MICRO SCOPI C FINDI NGS casts Negati ve lpf negati ve Not Available [address] [place], [address] 04/30/2024 06:21:18 04/30/2004/30/2024 MICRO SCOPI C FINDI NGS C S indicated? No Not Available [address] [place], [address] 04/30/2024 06:21:18 04/30/2004/30/2024 URINA LYSIS color Yellow yellow Not Available Maria Fernanda de anda [address] [place], [address] 04/30/2024 06:21:17 04/30/2004/30/2024 URINA LYSIS clarity Sl Cloudy clear Not Available Yfn guzman [address] [place], [address] 04/30/2024 06:21:17 04/30/2004/30/2024 URINA LYSIS specific gravity 1.025 1.005- 1.025 normal Not Available [address] [place], [address] 04/30/2024 06:21:17 04/30/2004/30/2024 URINA LYSIS pH 7.0 5-8 normal Not Available Maria Fernanda de anda [address] [place], [address] 04/30/2024 06:21:17 04/30/2004/30/2024 URINA LYSIS leukocyte esterase Negati ve negati ve Not Available [address] [place], [address] 04/30/2024 06:21:17 04/30/2004/30/2024 URINA LYSIS nitrite Negati ve negati ve Not Available [address] [place], [address] 04/30/2024 06:21:17 04/30/2004/30/2024 URINA LYSIS protein 100 mg/dL neg-tr william abnormal Not Available [address] [place], [address] 04/30/2024 06:21:17 04/30/2004/30/2024 URINA LYSIS glucose Negati ve mg/dL negati ve Not Available [address] [place], [address] 04/30/2024 06:21:17 04/30/2004/30/2024 URINA LYSIS ketones Negati ve mg/dL negati ve Not Available [address] [place], [address] 04/30/2024 06:21:17 04/30/2004/30/2024 URINA LYSIS urobilinogen 1.0 mg/dL up to 0.2 abnormal Not Available [address] [place], [address] 04/30/2024 06:21:17 04/30/2004/30/2024 URINA LYSIS bilirubin Negati ve negati ve Not Available [address] [place], [address] 04/30/2024 06:21:17 04/30/2004/30/2024 URINA LYSIS blood Large negati ve abnormal Not Available [address] [place], [address] 04/30/2024 06:21:17 04/30/2004/30/2024 URINA LYSIS color Yellow yellow Not Available Maria Fernanda de anda [address] [place], [address] 04/30/2024 06:21:14 04/30/2004/30/2024 URINA LYSIS clarity Sl Cloudy clear Not Available Yfn guzman [address] [place], [address] 04/30/2024 06:21:14 04/30/2004/30/2024 URINA LYSIS specific gravity 1.025 1.005- 1.025 normal Not Available [address] [place], [address] 04/30/2024 06:21:14 04/30/2004/30/2024 URINA LYSIS pH 7.0 5-8 normal Not Available Maria Fernanda de anda [address] [place], [address] 04/30/2024 06:21:14 04/30/2004/30/2024 URINA LYSIS leukocyte esterase Negati ve negati ve Not Available [address] [place], [address] 04/30/2024 06:21:14 04/30/2004/30/2024 URINA LYSIS nitrite Negati ve negati ve Not Available [address] [place], [address] 04/30/2024 06:21:14 04/30/2004/30/2024 URINA LYSIS protein 100 mg/dL neg-tr william abnormal Not Available [address] [place], [address] 04/30/2024 06:21:14 04/30/2004/30/2024 URINA LYSIS glucose Negati ve mg/dL negati ve Not Available [address] [place], [address] 04/30/2024 06:21:14 04/30/2004/30/2024 URINA LYSIS ketones Negati ve mg/dL negati ve Not Available [address] [place], [address] 04/30/2024 06:21:14 04/30/2004/30/2024 URINA LYSIS urobilinogen 1.0 mg/dL up to 0.2 abnormal Not Available [address] [facility] [place], [address] 04/30/2024 06:21:14 04/30/2004/30/2024 URINA LYSIS bilirubin Negati ve negati ve Not Available [address] [place], [address] 04/30/2024 06:21:14 04/30/2004/30/2024 URINA LYSIS blood Large negati ve abnormal Not Available [address] [place], [address] 04/30/2024 06:21:14 12/05/1912/05/2023 CT lung cameron mejia rpt Patien t Name: Jasper Oliveira cory E Unit #: [id number] Loc: DI Orderi ng Provid er: Basilia Drake M.D. Accoun t #: [id number] Status : REG CLI Primar y Care Provid er: Julio C Contreras Date of Exam: 11/12 11/04 Sex: M : 1945 Age: 78 Exam(s ) a CT:CT chest lung cancer screen Exam(s ) CT CHEST LUNG CANCER SCREEN EXAM: CT CHEST LUNG CANCER SCREEN CLINIC AL HISTOR Y: Screen ing for lung cancer ,curre nt smoker ,F17.2 10 TECHNI QUE: Imagin g Protoc ol: Axial comput ed tomogr aphy images with dee l and sagitt al reform atted images were create d and review ed. Low dose screen ing protoc ol. COMPAR ELIEL: CT CT CHEST/ ABD/PE L W from [address] CHEST PE ABD PELVIS W from 2022 FINDIN GS: Trache obronc hial tree: No bronch iectas is or mucus pluggi ng. Medias tinum and Alma Delia: No domina nt adenop athy or fluid collec tion. Pulmon joaquin parenc hyma: No consol idatio n or domina nt measur able mass. Severe emphys ematou s change s in the upper lobes. Lung Nodule s: None. Pleura : No effusi on. No pneumo thorax . Heart: The heart is not dilate d. Modera te dee ry artery calcif icatio ns are seen. Aorta: Thorac ic aorta non-di lated. Mild-t o-mode rate athero sclero tic change s. Upper abdome n: Large cyst left kidney . Metall ic densit ies left upper quadra nt create artifa ct. Gallst one. Bones: Fixati on plate in right clavic le. Spine unrema rkable for age. Soft Tissue s: Unrema rkable . IMPRES JESSICA: No suspic ious pulmon joaquin nodule s. Lung RADS Cat 1 - Negati ve: No nodule s and defini tely benign nodule s Lung-R ADS 1.0 CATEGO SAMY: Catego ry 0 - Prior chest CT exam(s ) being locate d for compar eliel. Catego ry 1 - Annual screen ing in 12 months . No nodule s or defini tely benign nodule s. Catego ry 2 - Annual screen ing in 12 months . Benign appear ance. Nodule s with low likeli whiting of becomi ng active cancer . Catego ry 3 - 6-gallo h follow -up. Probab ly benign . Short- term follow -up sugges rose marie. Nodule s with low likeli whiting of becomi ng active cancer . Catego ry 4A - 3-gallo h follow -up and CT/PET if >8 mm in size. Suspic ious findin g. Findin gs which requir e additi onal testin g. Catego ry 4B - Findin gs which requir e additi onal testin g and tissue sampli ng. Catego ry 4X - Catego ry 3 or 4 nodule s with additi onal featur es or imagin g findin gs that increa ses the suspic ion of malign aleksey. Modifi er S- Potent [email or web address]] ally signif icant findin gs (non lung cancer ) RADIAT ION DOSE DELIVE RED: 87.8mG y.cm Total DLP DATA REPOSI TORY: All CT scans at this facili ty are submit rose marie to the Nation al Radiol ogy Data Regist ry (NRDR) Dose Index Regist ry (DIR) with the [employer] an [employer] Radiol ogy (ACR). RADIAT ION OPTIMI ZATION : All CT scans at this facili ty use at least one of these dose optimi zation techni ques: automa rose marie exposu re contro l; mA and/or kV adjust ment per patien t size (inclu stephie target ed exams where dose is matche d to clinic al indica tion); or iterat vanessa recons tructi on. Orderi ng provid er: Basilia Drake M.D. CC: ------ ------ ------ ------ ------ ------ ------ ------ ------ ------ ------ --- Dictat ed By: Eron Nichols 1341 1341 Transc ribed By: Jose Hernández 1341 This is privil eged, confid ential inform ation intend ed only for the provid er named. Any use or distri bution by any person other than this provid er is strict ly prohib ited. If you receiv e this report in error, please notify us immedi wagnerly at and return the origin al report to us at the addres s above. Thank- you. This report utiliz es the CT Lung Screen ing Report ing and Data System (ACR Lung-R ADS) as below: Assess ment Catego samy Manage ment 0 Incomp lete Additi onal lung cancer screen ing CT images needed and/or compar eliel to prior chest CT exam/s needed 1 Negati ve Contin ue annual screen ing with LDCT in 12 months 2 Benign Appear ance or Behavi or Contin ue annual screen ing with LDCT in 12 months 3 Probab ly Benign 6 month LDCT 4A Suspic ious 3 month LDCT; PET CT may be used when there is a >8mm solid compon ent 4B Suspic ious Chest CT with or withou t contra st, PET/CT and/or tissue sampli ng Modifi ers C Prior Lung Cancer Prior diagno sis of lung cancer , return to LDCT screen ing S Signif icant- other Signif icant or potent ially clinic ally signif icant findin gs- non-rosita ng cancer [id number] [facility] [address] [place], [address] 12/10/2023 08:13:20 03/29/20 24 04/21/2020 imagi ng/di agnos tic resul t No observ ation record ed. Not Available 03/29 19:33:08 03/29/20 24 12/08/2022 imagi ng/di agnos tic resul t No observ ation record ed. Not Available 03/29 19:33:33 03/29/20 24 12/08/2022 imagi ng/di agnos tic resul t No observ ation record ed. Not Available 03/29 19:33:34 03/29/20 24 12/09/2022 imagi ng/di agnos tic resul t No observ ation record ed. Not Available 03/29 19:33:35 03/29/20 24 12/09/2022 imagi ng/di agnos tic resul t No observ ation record ed. Not Available 03/29 19:33:36 03/29/20 24 12/11/2022 imagi ng/di agnos tic resul t No observ ation record ed. Not Available 03/29 19:33:37 03/29/20 24 12/01/2022 imagi ng/di agnos tic resul t No observ ation record ed. Not Available 03/29 19:33:38 03/29/20 24 12/01/2022 imagi ng/di agnos tic resul t No observ ation record ed. Not Available 03/29 19:33:39 03/29/20 24 12/01/2022 imagi ng/di agnos tic resul t No observ ation record ed. Not Available 03/29 19:33:40 03/29/20 24 12/01/2022 imagi ng/di agnos tic resul t No observ ation record ed. Not Available 03/29 19:33:42 03/29/20 24 04/04/2020 imagi ng/di agnos tic resul t No observ ation record ed. Not Available 03/29 19:33:43 03/29/20 24 01/13/2023 XR, chest No observ ation record ed. Not Available 03/29 19:33:44 03/29/20 24 10/10/2021 imagi ng/di agnos tic resul t No observ ation record ed. Not Available 03/29 19:33:59 03/29/20 24 12/01/2022 imagi ng/di agnos tic resul t No observ ation record ed. Not Available 03/29 19:34:01 03/29/20 24 12/02/2022 imagi ng/di agnos tic resul t No observ ation record ed. Not Available 03/29 19:34:02 03/29/20 24 05/12/2023 imagi ng/di agnos tic resul t No observ ation record ed. Not Available 03/29 19:34:03 03/29/20 24 02/11/2020 imagi ng/di agnos tic resul t No observ ation record ed. Not Available 03/29 19:34:04 03/29/20 24 05/18/2020 CT, neck, soft tissu e No observ ation record ed. Not Available 03/29 19:34:05 03/29/20 24 06/05/2020 rocio sterling ow study No observ ation record ed. Not Available 03/29 19:34:13 03/29/20 24 11/30/2022 imagi ng/di agnos tic resul t No observ ation record ed. Not Available 03/29 19:35:12 03/29/20 24 12/08/2022 imagi ng/di agnos tic resul t No observ ation record ed. Not Available 03/29 19:35:31 03/29/20 24 10/30/2018 imagi ng/di agnos tic resul t No observ ation record ed. Not Available 03/29 19:36:47 03/29/20 24 04/08/2022 imagi ng/di agnos tic resul t No observ ation record ed. Not Available 03/29 19:36:48 03/29/20 24 04/06/2021 imagi ng/di agnos tic resul t No observ ation record ed. Not Available 03/29 19:36:49 03/29/20 24 11/30/2022 imagi ng/di agnos tic resul t No observ ation record ed. Not Available 03/29 19:37:07 03/29/20 24 11/30/2022 imagi ng/di agnos tic resul t No observ ation record ed. Not Available 03/29 19:37:08 03/29/20 24 11/30/2022 imagi ng/di agnos tic resul t No observ ation record ed. Not Available 03/29 19:37:09 03/29/20 24 11/30/2022 imagi ng/di agnos tic resul t No observ ation record ed. Not Available 03/29 19:37:10 03/29/20 24 12/01/2022 imagi ng/di agnos tic resul t No observ ation record ed. Not Available 03/29 19:37:11 03/29/20 24 12/01/2022 imagi ng/di agnos tic resul t No observ ation record ed. Not Available 03/29 19:37:12 03/29/20 24 12/08/2022 imagi ng/di agnos tic resul t No observ ation record ed. Not Available 03/29 19:37:13 03/29/20 24 12/08/2022 imagi ng/di agnos tic resul t No observ ation record ed. Not Available 03/29 19:37:14 03/29/20 24 12/08/2022 imagi ng/di agnos tic resul t No observ ation record ed. Not Available 03/29 19:37:15 03/29/20 24 12/08/2022 imagi ng/di agnos tic resul t No observ ation record ed. Not Available 03/29 19:37:16 04/20/20 24 04/20/2024 CT imagi ng repor t Patien t Name: Jasper Oliveira rd E Unit #: [id number] Loc: DI Orderi ng Provid er: Chloe Winters DNP Accoun t #: [id number] Status : REG CLI Primar y Care Provid er: Julio C Contreras Date of Exam: 03/06 Sex: M : 1945 Age: 78 Exam(s ) a CT:CT abdome n pelvis wo/w Exam(s ) CT ABDOME N PELVIS WO/W EXAM: CT ABDOME N PELVIS WO/W CLINIC AL HISTOR Y: gross hematu dee,r3 1.9. TECHNI QUE: Imagin g Protoc ol: Axial comput ed tomogr aphy images with dee l and sagitt al reform atted images were create d and review ed. Images were perfor med from the lung bases throug h the ischia l tubero sities before IV contra st and follow ing IV contra st using a 70 second delay, follow ed by 7 minute s delaye d images . CONTRA ST MATERI AL: Intrav enous: Omnipa que [address] volume :100 cc Oral: no COMPAR ELIEL: No exams were availa ble for compar eliel FINDIN GS: Lung Bases: Normal where visual ized. Liver: Normal densit y. No measur able mass. Gallbl adder and biliar y tract: Cholel ithias is. No gallbl adder wall thicke roberto. No biliar y dilati on. Pancre as: Normal densit y, no abnorm al calcif icatio ns or inflam matory proces s. Spleen : Small low-de nsity focus in the anteri or aspect of the spleen may be residu al relate d to prior spleni c lacera tion/P karol spleni c fluid hemato ma. Surgic al clips in left upper quadra nt vascul ature. Kidney s: Normal size, contou r and axis. Small nonobs tructi ng stone lower pole right kidney . No obstru ctive uropat hy. Stable left renal cysts. No follow -up recomm ended. No suspic ious masses seen. Adrena l glands : No masses seen. Lymph nodes: Within normal limits . Abdomi nal Aorta: Abdomi nal portio n non-di lated. Athero sclero tic change s. Soft tissue s: Unrema rkable . Bladde r: Somewh at limite d evalua tion due to under disten jessica. No gross wall thicke roberto. No eviden ce of a mass.1 2 x 8 millim eter stone seen on right side of bladde r. Divert iculum noted at samantha superi or aspect of bladde r Bowel: Stomac h unrema rkable . No obstru ction or bowel wall thicke roberto. Append ix normal . High- densit y ingest ed materi al in colon. Increa sed stool in the rectum . Perito david cavity : No ascite s, collec tion or mesent megan inflam matory respon se. Bones: Unrema rkable for age.. Reprod uctive organs : Prosta te is enlarg ed. IMPRES JESISCA: Small nonobs tructi ng stone near the lower pole of the right kidney . 12 millim eter stone in the telecommunications technician ior aspect of the bladde r. Samantha superi or right- sided bladde r divert iculum . Enlarg ed prosta te. No suspic ious renal mass. Stable renal cysts. No eviden ce of hydron ephros is. RADIAT ION DOSE DELIVE RED: Total DLP DATA REPOSI TORY: All CT scans at this facili ty are submit rose marie to the Nation al Radiol ogy Data Regist ry (NRDR) Dose Index Regist ry (DIR) with the Americ tucker [employer] Radiol o[employer] (ACR). RADIAT ION OPTIMI ZATION : All CT scans at this [facility] ty use at least one of these dose optimi zation techni ques: automa rose marie exposu re contro l; mA and/or kV adjust ment per patien t size (inclu stephie target ed exams where dose is matche d to clinic al indica tion); or iterat vanessa recons tructi on. 1008-0 011: Total DLP = 0.00 mGy-cm Ordere d By: Chloe Winters DNP CC: ------ ------ ------ ------ ------ ------ ------ ------ ------ ------ ------ ------ ---- Dictat ed By: Eron Nichols 1414 Transc ribed By: Jose Hernández 1414 This is privil eged, confid ential inform ation intend ed only for the provid er named. Any use or distri bution by any person other than this provid er is strict ly prohib ited. If you receiv e this report in error, please notify us immedi wagnerly at and return the origin al report to us at the addres s above. Thank- you. INTERFACE [facility] [address], [place], [address] 04/20/2024 14:28:52 Result Notes None recorded. Problems Name Problem SNOMED Code Status Onset Date Resolution Date Notes Provider Name and Address Organization Details Recorded Time Low back pain 348604855 Active 2014 Problem Code: M54.5; Problem Code Type: ICD-10; Not Available [facility] 4 17:25:09 Hyperlip idemia 02643030 Active 201405/11/20 17 - Comments only - Anuj Boone MD - -discuss ed with patient his current ASCVD risk grant g to the calculat or from the [employer] (17.7% risk over the next 10 years) as well as the reductio n in his risk if he were to stop smoking (14% risak over 10 years) -pt states he will try to stop smoking and use the chantix, which he used previous ly (was effectiv e, no side effects) -started a conversa tion about statin use but he said he was not interest ed in starting it now -due for PCV13 vaccine and provided it; rejects influenz a vaccine -continu e baby aspirin use Problem Code: E78.5; Problem Code Type: ICD-10; Not Available [facility] 4 17:25:09 Essentia l tremor 782835714 Active 201411/14/19 23 - Comments only - Anuj Boone MD - Relative ly stable on proprano lol and primidon e, continue Problem Code: G25.0; Problem Code Type: ICD-10; Not Available [facility] 4 17:25:09 Nicotine dependen ce 19626233 Active 201411/14/19 23 - Comments only - Anuj Boone MD - Still contempl ative, wants to try back on varenicl ine, has Rx at home. Problem Code: F17.209; Problem Code Type: ICD-10; Not Available [facility] 4 17:25:09 Chronic obstruct vaenssa pulmonar y disease 61569693 Active 201411/14/19 23 - Comments only - Anuj Boone MD - Stable on ICS/LABA /LAMA per pulmonlo gy. Moderate COPD per GOLD, no recent exacerba tions so technica lly ICS not clearly indicate d but will defer to pulmonol ogy, no change Problem Code: J44.9; Problem Code Type: ICD-10; Not Available [facility] 4 17:25:08 Adult health examinat ion Active 2015 Problem Code: Z00.00; Problem Code Type: ICD-10; Not Available [facility] 4 17:25:09 Obstruct vanessa sleep apnea syndrome 34738452 Active 201503/14/20 21 - Comments only - Anuj Boone MD - I think reasonab le to continue using unit until recalled foam replaced given his clinical response . Problem Code: G47.33; Problem Code Type: ICD-10; Not Available [facility] 4 17:25:09 History of polyp of colon 220418585 Active 2015 Pt. had 01/20/2024 Luna w/three polyps, rec'd f/u in 3-year, Due 01/19/2027 health permitti . AMINTA KAHN [address], [place], [address] , [facility] 4 12:56:21 Acute pharyngi tis [id number] Completed 201605/08/2017 Problem Code: J02.9; Problem Code Type: ICD-10; Not Available [facility] 3 04:44:17 Iron deficien cy anemia 04792930 Active 202003/25/20 22 - Comments only - Uli Valladares - Redraw labs today Problem Code: D50.9; Problem Code Type: ICD-10; Not Available [facility] 4 17:25:09 Constipa tion 06299726 Active 202103/25/20 22 - Comments only - Uli Valladares - not an issue at this time. 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 PSA done last fall reassuri ng. bladder scan not c/w signific ant retentio n. Offered medicati ons could use alpha renetta and/or finaster chidi, deferred for now. Problem Code: N40.1; Problem Code Type: ICD-10; Not Available [facility] 4 17:25:09 History of urinary stone 093193649 Active 2021 Problem Code: Z87.442; Problem Code Type: ICD-10; Not Available [facility] 4 17:25:08 Pain of left knee joint 60592310299 4107 Completed 201903/14/2021 Problem Code: M25.562; Problem Code Type: ICD-10; Not Available [facility] 3 04:44:18 Abnormal weight loss 960585950 Completed 201911/13/2022 Problem Code: R63.4; Problem Code Type: ICD-10; Not Available [facility] 3 04:44:18 Essentia l tremor 535277171 Completed 200004/26/2015 Not Available [facility] 3 04:44:18 Obstruct vanessa sleep apnea syndrome 61129990 Completed 201404/27/2018 Problem Code: G47.33; Problem Code Type: ICD-10; Not Available [facility] 3 04:44:18 Tobacco dependen ce syndrome 40006388 Completed 200904/09/2023 Not Available [facility] 3 04:44:18 Low back pain 724042863 Completed 200504/26/2015 Not Available [facility] 3 04:44:18 Polyuria 56184742 Completed 202111/12/2021 Problem Code: R35.8; Problem Code Type: ICD-10; Not Available [facility] 3 04:44:19 Polyp of colon 48718172 Completed 201504/09/2023 01/26/20 19 - Comments only - Anuj Boone MD - Discusse d f/u 3 years. Problem Code: K63.5; Problem Code Type: ICD-10; Not Available [facility] 3 04:44:19 Anemia 223024279 Completed 202004/09/2023 03/14/20 21 - Comments only - Anuj Boone MD - Denies bleeding . UTD colo/end ocscopy. Nutritio n has been issue, get iron/b12 and repeat CBC Problem Code: D64.9; Problem Code Type: ICD-10; Not Available [facility] 3 04:44:19 Hyperlip idemia 06330812 Completed 200504/26/2015 Not Available [facility] 3 04:44:19 Dysphagi a 35711375 Completed 201903/14/2021 Problem Code: R13.10; Problem Code Type: ICD-10; Not Available [facility] 3 04:44:19 Chronic obstruct vanessa pulmonar y disease 77210181 Completed 201204/26/2015 Not Available [facility] 3 04:44:19 Nicotine dependen ce 57742866 Completed 200904/26/2015 Problem Code: F17.200; Problem Code Type: ICD-10; Not Available [facility] 3 04:44:19 Acute exacerba tion of chronic obstruct vanessa pulmonar y disease 758743228 Completed 201604/07/2017 Problem Code: J44.1; Problem Code Type: ICD-10; Not Available [facility] 3 04:44:20 Obstruct vanessa sleep apnea syndrome 57238816 Completed 201004/26/2015 Not Available [facility] 3 04:44:20 Itching of skin 850449126 Completed 201708/06/2019 Problem Code: L29.9; Problem Code Type: ICD-10; Not Available [facility] 3 04:44:20 Tobacco dependen ce caused by cigarett es [id number] 479989 Completed 201801/25/2019 Problem Code: F17.210; Problem Code Type: ICD-10; [address], [place], [address] , [facility]. 4 15:11:06 General unsteadi ness 526776935 Completed 202003/14/2021 Problem Code: R26.81; Problem Code Type: ICD-10; Not Available [facility] 3 04:44:20 Sleep apnea 85386831 Completed 201504/09/2023 Problem Code: G47.30; Problem Code Type: ICD-10; Not Available [facility] 3 04:44:20 Pain of left shoulder joint 28275470690 127252 Completed 202011/12/2021 Problem Code: M25.512; Problem Code Type: ICD-10; Not Available [facility] 3 04:44:21 Delay when starting to pass urine 0984658 Completed 202104/09/2023 12/13/19 22 - Comments only - Anuj Boone MD - a/w constipa tion. Treat constipa tion, if it doesn't improve, consider alpha block. prostate exam benign today Problem Code: R39.11; Problem Code Type: ICD-10; Not Available [facility] 3 04:44:21 Blood in urine 87544302 Completed 202205/06/2023 Problem Code: R31.9; Problem Code Type: ICD-10; Not Available [facility] 4 05:35:43 Lung field abnormal 078819516 Active 2022 Problem Code: R91.8; Problem Code Type: ICD-10; Not Available [facility] 4 17:25:09 Underwei ght 996555932 Active 202205/05/20 23 - Comments only - Anuj Boone MD - Weight is finally increasi ng. Diet is good. Of course given smoking especial ly I am concerne d about a malignan cy. He had a extensiv e work up when this started last year, weight was going up again until his fall in December 2022. COPD may also b contribu ting, control has improved on Trelegy. COntinue to follow Problem Code: R63.6; Problem Code Type: ICD-10; Not Available [facility] 4 17:25:08 Proteinu dee 07764584 Active 2023 [address]INTA KAHN [address], [place], [address] , [facility]. 4 14:32:47 Tobacco dependen ce caused by cigarett es [id number] 687559 Active 2023 Problem Code: F17.210; Problem Code Type: ICD-10; [address], [place], [address] , [facility], [facility] 4 15:11:06 Gastroes ophageal reflux disease without esophagi tis 766606242 Active [address], [place], [address] , [facility] 4 15:22:45 Problem Notes Documentation Provider Name and Address Organization Details Recorded Time Urologist Consult Note : Urology Clinic Visit PATIENT NAME: Klever Holguin UNIT #: [id number] ADMITTING PROVIDER: Elyse Isidro DNP ACCOUNT #: [id number] PRIMARY CARE PROVIDER: Jason Contreras DATE OF ADMIT: 04/13/24 : 1945 Assessment Plan (1) Gross hematuria: (2) Weight loss: Plan UA large blood w/ RBC >50. Small leuks. Will send for UC to r/t UTI. Patient without dysuria/change in LUTS. Will notify him of UC results when completed and treat if needed. Reviewed prior CTs with patient. Right non-obstructing renal calculi and bladder calculi noted. No identifiable urologic mass. Will obtain CTU for the gross hematuria since prior images are over 1 year old. Patient to follow-up in clinic for discussion on CT results. We did note completion of gross hematuria work-up would then include a cysto. He expressed understanding. Dictation was done by [employer] voice recognition. Errors may be present within the note. Time Log Time spent pre-visit (including review of tests, previous visit/referral notes, and any visit notes since): 5 min Time spent in-person/aka face-to face time: 40 min Time spent post-visit (including documenting, medication reconciliation and coordination of care): 5 min Total time spent in care for this patient: [address] abdomen pelvis wo/w 1 Week R31.9 - Hematuria, unspecified Creatinine 1 Week R31.9 - Hematuria, unspecified Urinalysis Dip Only Today R31.9 - Hematuria, unspecified Urinalysis Today R31.9 - Hematuria, unspecified Urine Culture Today R31.9 - Hematuria, unspecified Plan Detail Total time on date of encounter, (litl-dz-ncba and non qtvo-uo-ohqq) (minutes): 50 Time was spent: reviewing prior notes and diagnostics, providing direct patient care, ordering diagnostics and/or referrals, documenting today's visit and coordinating care HPI HPI Edmelanie is a 78 y/o male referred to urology by his PCP for hematuria. Patient reports that he has had off/on gross hematuria with white tissue for several months. No dysuria but has discomfort when tissue or clot is voided. LUTS have been same through this time. +ABN wt loss. No unexplained skeletal pains. Hx of kidney stones a few years ago and prior to that 10 years ago. He reports stones were all spontaneously passed. When inpatient November 2022 after a fall, he had a catheter d/t weakness and decreased ability to move. Catheter was removed when he was at a SNF. Voiding has not been a concern since. 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 Allergies Reviewed elsewhere in the chart Medications Reviewed elsewhere in the chart Family Hx No known family hx of urologic cancers/concerns Review of Systems Const: Reports as per HPI : Reports as per HPI Exam Const Orientation: alert, awake and oriented x3 Other: VS reviewed that were done by nurse [place] Eyes Sclera: sclerae normal Resp Effort Inspection: normal respiratory effort GI Inspection: normal to inspection and non-distended Palpation: soft, no masses and nontender General: No CVA tenderness Extrem General: abnormal ROM Results Urinalysis (Dip Only) Urine Color (Office) Last Edit by Ale Aguilera on 04/13/24 11:46 Urine Clarity (Office) Last Edit by Ale Aguilera on 04/13/24 11:46 Urine Glucose (Office) Negative Last Edit by Ale Aguilera on 04/13/24 11:46 Urine Bili (Office) Negative Last Edit by Ale Aguilera on 04/13/24 11:46 Urine Ketones (Office) Negative Last Edit by Ale Aguilera on 04/13/24 11:46 Urine Specific Walker (Office 1.025 Last Edit by Ale Aguilera on 04/13/24 11:46 Urine Blood (Office) Large Last Edit by Ale Aguilera on 04/13/24 11:46 Urine pH (Office) 6.5 Last Edit by Ale Aguilera on 04/13/24 11:46 Urine Protein (Office) 30 Last Edit by Ale Aguilera on 04/13/24 11:46 Urine Urobilinogen (Office) 2.0 Last Edit by Ale Aguilera on 04/13/24 11:46 Urine Nitrite (Office) Negative Last Edit by Ale Aguilera on 04/13/24 11:46 Urine Leukocyte (Office) Small Last Edit by Ale Aguilera on 04/13/24 11:46 Intake Vital Signs 04/13/24 11:05 Height 5 ft 8 in Height Source Reported Weight 125 lb Weight Source Reported BMI 19.0 BP 108/73 Blood Pressure Location Lt brachial Position Sitting Intake Visit Reasons: [employer] - HX Hematuria Ref by [facility] Quality Data: Colonoscopy 01/13/24 Nurse Note: Pt here to establish for hematuria, referred by [facility] patient is hard of hearing. Allergies Allergy/AdvReac Type Severity Reaction Status Date / Time aspirin AdvReac Intermediate GI UPSET Verified 04/13/24 11:05 Home Medications ???Medication ???Instructions ???Recorded ???Confirmed ???Type cholecalciferol (vitamin D3) 50 50 mcg PO DAILY 04/06/20 11/07/23 History mcg (2,000 unit) capsule propranolol 120 mg capsule,24 120 mg PO DAILY 04/06/20 11/07/23 History hr,extended release primidone 250 mg tablet 300 mg PO TID #270 tab-caps 05/23/20 11/07/23 History albuterol sulfate 90 mcg/actuation 2 puff inhalation Q6H PRN 02/04/22 11/07/23 Rx aerosol inhaler shortness of breath or wheezing #8.5 grams fluticasone fur. 100 mcg-umeclid 1 inh inhalation DAILY #60 ea 05/16/22 11/07/23 Rx 62.5 mcg-vilant 25 mcg inhalat.powder (Trelegy Ellipta) acetaminophen 500 mg tablet 650 mg (1.3 x 500 mg) PO TID PRN 12/02/22 11/07/23 Rx PRN #0 tabs bisacodyl 5 mg tablet,delayed 5 mg PO ONCE #4 tabs 08/21/23 11/07/23 Rx release (Dulcolax (bisacodyl)) polyethylene glycol 3350 17 17 g PO ONCE #238 grams 08/21/23 11/07/23 Rx gram/dose oral powder PFSH All Active Problems (Updated 04/13/24 @ 12:58 by Elyse Isidro DNP) Gross hematuria (Acute) Family history of colon cancer (Acute) Anemia (Chronic) Sacral fracture (Acute) Nasal bone fracture (Acute) Advanced care planning/counseling discussion (Acute) TBI (traumatic brain injury) (Acute) Subdural hematoma (Acute) COVID-19 (Acute) Spleen laceration (Acute) Acute cholecystitis (Acute) Bleeding in brain (Acute) Abdominal pain (Acute) Acute blood loss anemia (Acute) Ruptured spleen (Acute) Lethargy (Acute) Fall (Acute) Minor contusion of spleen (Acute) Subarachnoid bleed (Acute) Lumbar transverse process fracture (Acute) 3 vertebrae Nicotine dependence, cigarettes, uncomplicated (Acute) Constipation (Acute) ROE and COPD overlap syndrome (Acute) Rib pain on right side (Acute) Fall as cause of accidental injury at home as place of occurrence (Acute) Anemia, iron deficiency (Acute) Weight loss, abnormal (Acute) Tubular adenoma (Acute 01/29/16) Mass of vallecula (Acute) Pharyngeal dysphagia (Acute) Aspiration into lower respiratory tract (Acute) Vocal cord dysfunction (Acute) Vocal cord paralysis (Acute) Ribs, multiple fractures (Acute 06/05/13) Ribs 7 through 9 Atelectasis (Acute 06/05/13) COPD (chronic obstructive pulmonary disease) (Chronic) Jun 24, 2012 PFT's with FEV1 60% predicted, severe obstrtuctive disease with no significatn bronchodilator response. Tobacco abuse (Chronic) Ongoing tobacco use, nicotiune replacement not helpful, Chntix helped in the past but could not afford. PFT's performed 07/03/12 with REV1 60% predicted, severe obstrructive disease with no significant bronchodilator response. Sleep apnea (Chronic) Treated with CPAP. Essential tremor (Chronic) Chronic back pain (Chronic) Weight loss (Acute) Dysphagia (Acute) Hyperlipidemia (Chronic) Medical History History of nephrolithiasis Palliative care encounter Shoulder pain, left Polyuria History of broken collarbone right collarbone fx with hardware- per pt 6 years ago Chronic low back pain Colon polyps 01/08/19 w/ Dr Marya Stinson, [facility], tubular adenoma, repeat 3 yrs 01/29/16 w/ Dr. Aleyda Irizarry, 4 tubular adenoma's, repeat 3 years Cigarette smoker Tremor COPD (chronic obstructive pulmonary disease) Hearing loss Sleep apnea Surgical History Hx of surgical procedure clavicle repair Hx of thumb surgery 1973. Hardware in place Family History Mother Colon cancer Social History Smoking/Tobacco Use Status: Current every day Tobacco Type: cigarettes Tobacco: How many years used: 50 Smoking risk assessment performed?: Yes Alcohol Intake: never Drug use: Never Substance use type: does not use Housing: house Do you feel safe at home: Yes (unable to ask privately) Do you feel safe in your relationship?: Yes Additional Social history: Coding Diagnoses Gross hematuria R31.0 Weight loss R63.4 cc: Jason Contreras Dictated by: ELYSE ISIDRO NP Dictated: 04/13/24 Time: 11 00 Date: 04/13/24 2100 Date: Date: Transcribed Date: 04/13/24 Transcribed Time: 1100 By: PALMAEugenio This is privileged, confidential information, intended only for the provider named. Any use or distribution by any person other than this provider is strictly prohibited. If you receive this report in error, please notify us immediately at [phone] and return the original report to us at the address above. Thank you. Sarah lugo [place] - [facility]. 04/19/2024 14:24:46 Urology Note : Urology Clinic Visit PATIENT NAME: Klever Holguin UNIT #: [id number] ADMITTING PROVIDER: Elyse Isidro DNP ACCOUNT #: [id number] PRIMARY CARE PROVIDER: Jason Contreras DATE OF ADMIT: 04/28/24 : 1945 Assessment Plan (1) Gross hematuria: (2) Weight loss: Plan His urinalysis from initial office visit had large blood with an RBC greater than 50. Culture was negative. Reviewed his CTU with findings from radiology that note: Small nonobstructing stone near the lower pole of the right kidney. 12 millimeter stone in the posterior aspect of the bladder. Anterosuperior right-sided bladder diverticulum. Enlarged prostate. No suspicious renal mass. Stable renal cysts. No evidence of hydronephrosis. Discussed completion of the hematuria workup with cystoscopy. We noted that cystoscopy could be done in clinic but not be able to address his bladder stone. He does not have recurrent UTIs and minimal ill effects from his bladder stone. He would like to have cystoscopy and bladder stone addressed. In this case he would need to be seen through the OR for the procedure. In review of his chart he does have several pulmonology concerns that may be a factor in prohibiting him from being a surgical candidate. Will send a message to his pulmonology group as well as anesthesia to review. Pending their review we will determine if we can truly complete his hematuria workup/removal of bladder stone in the OR or need to just do the cystoscopy in clinic. He and his daughter expressed understanding. Will plan on reaching out to them after he has his pulmonology visit next week or sooner if her response is had prior to that office visit. Dictation was done by [employer] voice recognition. Errors may be present within the note. A total of 28 minutes was spent reviewing this patient's EMR, tmub-vh-wcqg time, and documenting. Plan Detail Total time on date of encounter, (imaj-kl-qzzc and non tmgh-zh-urlh) (minutes): 28 Time was spent: reviewing prior notes and diagnostics, providing direct patient care, documenting today's visit, updating the EMR and coordinating care HPI Klever is a 78 y/o male with gross hematuria. Patient reports that he has had off/on gross hematuria with white tissue for several months. No dysuria but has discomfort when tissue or clot is voided. LUTS have been same through this time. +ABN wt loss. No unexplained skeletal pains. Hx of kidney stones a few years ago and prior to that 10 years ago. He reports stones were all spontaneously passed. He did in he past have a hematuria work-up with completion of it with cysto in clinic. He thinks this was over 15 years ago. No concerns were found per patient report. He presents today for review of his CTU. He is here with his daughter. He states none of the above information has changed. He is still to the knowledge that no one for family history has had urologic cancers. Review of Systems Const: Reports as per HPI : Reports as per HPI Exam Const Orientation: alert, awake and oriented x3 Other: [place] Eyes Sclera: sclerae normal Resp Effort Inspection: normal respiratory effort GI Inspection: normal to inspection and non-distended Extrem General: abnormal ROM Intake Intake Visit Reasons: Follow CT Results Quality Data: Colonoscopy 01/13/24 Allergies Allergy/AdvReac Type Severity Reaction Status Date / Time aspirin AdvReac Intermediate GI UPSET Verified 04/13/24 11:05 Home Medications ???Medication ???Instructions ???Recorded ???Confirmed ???Type cholecalciferol (vitamin D3) 50 50 mcg PO DAILY 04/06/20 04/29/24 History mcg (2,000 unit) capsule propranolol 120 mg capsule,24 120 mg PO DAILY 04/06/20 04/29/24 History hr,extended release albuterol sulfate 90 mcg/actuation 2 puff inhalation Q6H PRN 02/04/22 04/29/24 Rx aerosol inhaler shortness of breath or wheezing #8.5 grams fluticasone fur. 100 mcg-umeclid 1 inh inhalation DAILY #60 ea 05/16/22 04/29/24 Rx 62.5 mcg-vilant 25 mcg inhalat.powder (Trelegy Ellipta) acetaminophen 500 mg tablet 650 mg (1.3 x 500 mg) PO TID PRN 12/02/22 04/29/24 Rx PRN #0 tabs bisacodyl 5 mg tablet,delayed 5 mg PO ONCE #4 tabs 08/21/23 04/29/24 Rx release (Dulcolax (bisacodyl)) PFSH All Active Problems (Updated 04/13/24 @ 12:58 by Elyse Isidro DNP) Gross hematuria (Acute) Family history of colon cancer (Acute) Anemia (Chronic) Sacral fracture (Acute) Nasal bone fracture (Acute) Advanced care planning/counseling discussion (Acute) TBI (traumatic brain injury) (Acute) Subdural hematoma (Acute) COVID-19 (Acute) Spleen laceration (Acute) Acute cholecystitis (Acute) Bleeding in brain (Acute) Abdominal pain (Acute) Acute blood loss anemia (Acute) Ruptured spleen (Acute) Lethargy (Acute) Fall (Acute) Minor contusion of spleen (Acute) Subarachnoid bleed (Acute) Lumbar transverse process fracture (Acute) 3 vertebrae Nicotine dependence, cigarettes, uncomplicated (Acute) Constipation (Acute) ROE and COPD overlap syndrome (Acute) Rib pain on right side (Acute) Fall as cause of accidental injury at home as place of occurrence (Acute) Anemia, iron deficiency (Acute) Weight loss, abnormal (Acute) Tubular adenoma (Acute 01/29/16) Mass of vallecula (Acute) Pharyngeal dysphagia (Acute) Aspiration into lower respiratory tract (Acute) Vocal cord dysfunction (Acute) Vocal cord paralysis (Acute) Ribs, multiple fractures (Acute 06/05/13) Ribs 7 through 9 Atelectasis (Acute 06/05/13) COPD (chronic obstructive pulmonary disease) (Chronic) Jun 24, 2012 PFT's with FEV1 60% predicted, severe obstrtuctive disease with no significatn bronchodilator response. Tobacco abuse (Chronic) Ongoing tobacco use, nicotiune replacement not helpful, Chntix helped in the past but could not afford. PFT's performed 07/03/12 with REV1 60% predicted, severe obstrructive disease with no significant bronchodilator response. Sleep apnea (Chronic) Treated with CPAP. Essential tremor (Chronic) Chronic back pain (Chronic) Weight loss (Acute) Dysphagia (Acute) Hyperlipidemia (Chronic) Medical History History of nephrolithiasis Palliative care encounter Shoulder pain, left Polyuria History of broken collarbone right collarbone fx with hardware- per pt 6 years ago Chronic low back pain Colon polyps 01/08/19 w/ Dr Marya Stinson, [facility], tubular adenoma, repeat 3 yrs 01/29/16 w/ Dr. Aleyda Irizarry, 4 tubular adenoma's, repeat 3 years Cigarette smoker Tremor COPD (chronic obstructive pulmonary disease) Hearing loss Sleep apnea Surgical History Hx of surgical procedure clavicle repair Hx of thumb surgery 1973. [address] Family History Mother Colon cancer Social History Smoking/Tobacco Use Status: Current every day Tobacco Type: cigarettes Tobacco: How many years used: 50 Smoking risk assessment performed?: Yes Alcohol Intake: never Drug use: Never Substance use type: does not use Housing: house Do you feel safe at home: Yes (unable to ask privately) Do you feel safe in your relationship?: Yes Additional Social history: Coding Diagnoses Gross hematuria R31.0 Weight loss R63.4 cc: Jason Contreras Dictated by: ELYSE ISIDRO NP Dictated: 04/28/24 Time: 27 08 Date: 04/29/24808 Date: Date: Transcribed Date: 04/28/24 Transcribed Time: 1401 By: AGNES This is privileged, confidential information, intended only for the provider named. Any use or distribution by any person other than this provider is strictly prohibited. If you receive this report in error, please notify us immediately at [phone] and return the original report to us at the address above. Thank you. BILL DELEON, [place] - [facility] 04/29/2024 11:58:51 Procedures Surgical History None recorded. Imaging Results Imaging Date Name Status LastModified by Organiz [facility] Details LastModified Time 12/05/2023 CT lung cancer screening rpt completed [facility] [address] [place], [address] 12/10/2023 08:13:20 04/21/2020 imaging/diagno stic result completed Information not available 03/29/2024 19:33:08 12/08/2022 imaging/diagno stic result completed Information not available 03/29/2024 19:33:33 12/08/2022 imaging/diagno stic result completed Information not available 03/29/2024 19:33:34 12/09/2022 imaging/diagno stic result completed Information not available 03/29/2024 19:33:35 12/09/2022 imaging/diagno stic result completed Information not available 03/29/2024 19:33:36 12/11/2022 imaging/diagno stic result completed Information not available 03/29/2024 19:33:37 12/01/2022 imaging/diagno stic result completed Information not available 03/29/2024 19:33:38 12/01/2022 imaging/diagno stic result completed Information not available 03/29/2024 19:33:39 12/01/2022 imaging/diagno stic result completed Information not available 03/29/2024 19:33:40 12/01/2022 imaging/diagno stic result completed Information not available 03/29/2024 19:33:42 04/04/2020 imaging/diagno stic result completed Information not available 03/29/2024 19:33:43 01/13/2023 XR, chest completed Information no t available 03/29/2024 19:33:44 10/10/2021 imaging/diagno stic result completed Information not available 03/29/2024 19:33:59 12/01/2022 imaging/diagno stic result completed Information not available 03/29/2024 19:34:01 12/02/2022 imaging/diagno stic result completed Information not available 03/29/2024 19:34:02 05/12/2023 imaging/diagno stic result completed Information not available 03/29/2024 19:34:03 02/11/2020 imaging/diagno stic result completed Information not available 03/29/2024 19:34:04 05/18/2020 CT, neck, soft tissue completed Information not available 03/29/2024 19:34:05 06/05/2020 barium swallow study completed Information not available 03/29/2024 19:34:13 11/30/2022 imaging/diagno stic result completed Information not available 03/29/2024 19:35:12 12/08/2022 imaging/diagno stic result completed Information not available 03/29/2024 19:35:31 10/30/2018 imaging/diagno stic result completed Information not available 03/29/2024 19:36:47 04/08/2022 imaging/diagno stic result completed Information not available 03/29/2024 19:36:48 04/06/2021 imaging/diagno stic result completed Information not available 03/29/2024 19:36:49 11/30/2022 imaging/diagno stic result completed Information not available 03/29/2024 19:37:07 11/30/2022 imaging/diagno stic result completed Information not available 03/29/2024 19:37:08 11/30/2022 imaging/diagno stic result completed Information not available 03/29/2024 19:37:09 11/30/2022 imaging/diagno stic result completed Information not available 03/29/2024 19:37:10 12/01/2022 imaging/diagno stic result completed Information not available 03/29/2024 19:37:11 12/01/2022 imaging/diagno stic result completed Information not available 03/29/2024 19:37:12 12/08/2022 imaging/diagno stic result completed Information not available 03/29/2024 19:37:13 12/08/2022 imaging/diagno stic result completed Information not available 03/29/2024 19:37:14 12/08/2022 imaging/diagno stic result completed Information not available 03/29/2024 19:37:15 12/08/2022 imaging/diagno stic result completed Information not available 03/29/2024 19:37:16 04/20/2024 CT imaging report completed INTERFACE [facility] [address], [place], [address] 04/20/2024 14:28:52 Procedure Notes None recorded. Medical Equipment None Reported. Medications Name Sig Start Date Stop Date Status Note LastModified by Organization Details LastModified Time Miralax 17 gram/dose oral powder Take 17 gram by mouth once a day as needed take daily until regular soft movement s 03/12 completed Not Available Not Available Not Available primidone 50 mg tablet Take 1 tablet by mouth three times a day with 250mg tab active Not Available Not Available No t Available gabapenti n 600 mg tablet tid 11/28 completed Not Available Not Available Not Available propranol ol 80 mg tablet 1TAB bid 12/22 completed Not Available Not Available Not Available naproxen 375 mg tablet take 1 tablet twice daily as needed for throat pain 04/27 completed Not Available Not Available Not Available cefpodoxi me 200 mg tablet 02/17 completed Not Available Not Available Not Available famotidin e 40 mg tablet Take 1 tablet every day by oral route. active Not Available Not Available No t Available Medrol (Yuri) 4 mg tablets in a dose pack 1 TAB DIRECTED 02/16 completed Not Available Not Available Not Available acetamino phen 500 mg tablet Take 1-2 tab by mouth every 6 hours as needed, max 6/2016 active Not Available Not Available Not Avai lable Medrol 4 mg tablet 1 TAB DIRECTED 02/12 completed Not Available Not Available Not Available DuoNeb 0.5 mg-3 mg(2.5 mg base)/3 mL solution for nebulizat ion 3ML geovanna EVERY SIX HOURS 06/18 completed Not Available Not Available Not Available hydromorp gilles 2 mg tablet 1TAB at bedtime 08/20 completed Not Available Not Available Not Available primidone 250 mg tablet Take 1 tablet three times a day active Not Available Not Available No t Available methocarb jesse 750 mg tablet Take 1 tablet by mouth three times a day 03/23 completed Not Available Not Available Not Available bisacodyl 10 mg rectal supposito ry Insert 1 supposit ory into rectum once a day as needed until large bowel movement 03/24 completed Not Available Not Available Not Available ferrous sulfate 325 mg (65 mg iron) tablet Take 1 tablet by mouth once a day for anemia 12/12 completed Not Available Not Available Not Available prednison e 50 mg tablet one po daily x 4 more days 12/11 completed Not Available Not Available Not Available propranol ol ER 80 mg capsule,2 4 hr,extend ed release one po daily for tremor 2018 active Not Available Not Available Not Avai lable Advair Diskus 500 mcg-50 mcg/dose powder for inhalatio n 1 PUFF TWICE DAILY 08/29 completed Not Available Not Available Not Available ibuprofen 200 mg tablet as dir prn 12/04 completed Not Available Not Available Not Available Propranol ol HCl CR 80 mg capsule,e xtended release 1 TAB twice daily 06/18 completed Not Available Not Available Not Available propranol ol ER 120 mg capsule,2 4 hr,extend ed release Take 1 tablet by mouth once a day active Not Available Not Available No t Available Aspir-81 mg tablet,de layed release Take 1 tab by mouth daily 03/29 completed Not Available Not Available Not Available albuterol sulfate HFA 90 mcg/actua tion aerosol inhaler Inhale 2 puff using inhaler every six hours as needed 02/17 completed rx by pulmonol ogy Not Available Not Available Not Available Flexeril 10 mg tablet 1 TAB three times daily 02/21 completed Not Available Not Available Not Available nicotine (polacril ex) 2 mg buccal lozenge Hold 1 lozenge to inside of mouth (buccal) every two hours as needed 01/23 completed Not Available Not Available Not Available gabapenti n 300 mg tablet tid 09/25 completed Not Available Not Available Not Available multivita min 1 qd 08/22 completed Not Available Not Available Not Available Chantix 1 mg tablet 1 TAB twice daily to be started after the Chantix Starter Pack is done. 2023 active Not Available Not Available Not Avai lable Vitamin D 2,000 unit capsule 1CAP daily 2014 active Not Available Not Available Not Avai lable Vitamin D3 50 mcg (2,000 unit) capsule 1 tab daily 2014 active Not Available Not Available Not Avai lable Chantix Starting Month Box 0.5 mg (11)-1 mg (42) tablets in dose pack Take 0.5-1 tablet by mouth as directed Take 0.5 mg daily for 3 days, then 0.5 mg twice daily for 4 days, then 1 mg twice daily 2023 active Not Available Not Available Not Avai lable Tudorza Pressair 400 mcg/actua tion breath activated 1INH twice daily 06/07 completed Not Available Not Available Not Available Spiriva Respimat 2.5 mcg/actua tion solution for inhalatio n Inhale 2 puff as directed once a day 01/23 completed Not Available Not Available Not Available Stiolto Respimat 2.5 mcg-2.5 mcg/actua tion solution for inhalatio n Inhale 2 puff once a day 01/23 completed Not Available Not Available Not Available bupropion HCl 150 mg tablet,12 hr sustained -release( smoking deterrent ) Take 1 tablet by mouth twice a day 12/12 completed Not Available Not Available Not Available Bevespi Aerospher e 9 mcg-4.8 mcg HFA aerosol inhaler Inhale 2 puff using inhaler twice a day 03/25 completed Not Available Not Available Not Available Trelegy Ellipta 100 mcg-62.5 mcg-25 mcg powder for inhalatio n Inhale 1 puff every day by inhalati on route. 02/17 completed Not Available Not Available Not Available Trelegy Ellipta 200 mcg-62.5 mcg-25 mcg powder for inhalatio n Inhale 1 puff as directed once a day 02/17 completed Not Available Not Available Not Available Vitals Date Recorded Body height Body mass index (BMI) Body weight Body temperature Oxygen saturation Oxygen saturation in Arterial blood by Pulse oximetry Respiratory rate Heart rate Systolic blood pressure Diastolic blood pressure Provider Name and Address Organization Details Last Updated DateTime 4 174.625 cm 18.6 kg/m2 25284.0 5 g 98.6 [degF] 97 % 97 % 16 /min 66 /min 88 mm[Hg] 60 mm[Hg] KIRSTEN SIERRA RN [facility] 4 13:22:35 Date Recorded Body height Body mass index (BMI) Body weight Body temperature Oxygen saturation Oxygen saturation in Arterial blood by Pulse oximetry Heart rate Systolic blood pressure Diastolic blood pressure Provider Name and Address Organization Details Last Updated DateTime 4 174.625 cm 19.9 kg/m2 34822.9 4 g 98.8 [degF] 96 % 96 % 81 /min 112 mm[Hg] 58 mm[Hg] WE[facility] MA [facility] 4 13:33:51 Date Recorded Body height Body mass index (BMI) Body weight Body temperature Oxygen saturation Oxygen saturation in Arterial blood by Pulse oximetry Heart rate Systolic blood pressure Diastolic blood pressure Provider Name and Address Organization Details Last Updated DateTime 4 174.625 cm 19.3 kg/m2 24392.5 7 g 98.8 [degF] 96 % 96 % 82 /min 118 mm[Hg] 68 mm[Hg] WE[facility] MA [facility] 4 14:37:00 Social History Question Answer Notes LastModified by Organizat ion Details LastModified Time Tobacco Smoking Status Current Every Day Smoker KIRSTEN SIERRA RN [facility], [facility] 08/05/2023 13:17:31 Would You Say That, In General, Your Health Is Good Information not available 08/05/2023 How Often Does Anyone, Including Family, Physically Hurt You? Never Information not available 08/05/2023 How Often Does Anyone, Including Family, Insult Or Talk Down To You? Never Information no t available 08/05/2023 How Often Does Anyone, Including Family, Threaten You With Harm? Never Information not available 08/05/2023 How Often Does Anyone, Including Family, Scream Or Curse At You? Never Information not available 08/05/2023 Within The Past 12 Months, You Worried That Your Food Would Run Out Before You Got Money To Buy More. Never True Information n ot available 08/05/2023 Within The Past 12 Months, The Food You Bought Just Didn't Last And You Didn't Have Money To Get More. Never True Information n ot available 08/05/2023 How Hard Is It For You To Pay For The Very Basics Like Food, Housing, Medical Care, And Heating? Would You Say It Is: Not Hard At All Information not available 08/05/2023 In The Past 12 Months, Has Lack Of Reliable Transportation Kept You From Medical Appointments, Meetings, Work Or From Getting Things Needed For Daily Living? No Information not available 08/05/2023 What Is Your Housing Situation Today? I Have Housing. Information not available 08/05/2023 How Often In The Past Year Have You Used Marijuana (including Smoking, Vaping, Dabbing, Or Edibles)? Never Information not available 08/05/2023 How Often In The Past Year Have You Used Prescription Medications That Were Not Prescribed To You? Never Information n ot available 08/05/2023 How Often In The Past Year Have You Taken Your Own Prescription Medication More Than The Way It Was Prescribed Or For Different Reasons Than Its Intended Purpose? Never Information no t available 08/05/2023 How Often In The Past Year Have You Used Other Drugs (for Example, Heroin, Cocaine, Meth, Salvia, Inhalants)? Never Information not available 08/05/2023 Have You Ever Used IV Drugs? No Information not available 08/05/2023 During The Past Four Weeks Has Your Physical And Emotional Health Limited Your Social Activities With Family And Friends, Neighbors, Or Groups? Not At All Information not available 08/05/2023 During The Past Four Weeks, Was Someone Available To Help You If You Needed And Wanted Help? (For Example, If You [place] Very Nervous, Lonely, Or Blue; Got Sick And Had To Stay In Bed; Needed Someone To Talk To; Needed Help With Daily Chores; Or Needed Help Just Taking Care Of Yourself.) Yes- A Little Information n ot available 08/05/2023 During The Past Four Weeks, What Was The Hardest Physical Activity You Could Do For At Least 2 Minutes? Very Light Information not available 08/05/2023 Can You Get To Places Out Of Walking Distance Without Help? (For Example, Can You Travel Alone On Buses Or Taxis, Or Drive Your Own Car?) Yes Information not available 08/05/2023 Can You Go Shopping For Groceries Or Clothes Without Someone? s Help? Yes Information not available 08/05/2023 Can You Prepare Your Own Meals? Yes Information not available 08/05/2023 Can You Do Your Housework Without Help? Yes Information not available 08/05/2023 Because Of Any Health Problems, Do You Need The Help Of Another Person With Your Personal Care Needs Such As Eating, Bathing, Dressing, Or Getting Around The House? No Information not available 08/05/2023 Can You Handle Your Own Money Without Help? Yes Information not available 08/05/2023 Are You Having Difficulties Driving Your Car? No Information no t available 08/05/2023 Do You Always Fasten Your Seat Belt When You Are In A Car? No Information not available 08/05/2023 How Often During The Past Four Weeks Have You Been Bothered By Any Of The Following Problems? Falling Or Dizzy When Standing Up? Never Information not available 08/05/2023 Sexual Problems? Always Informat ion not available 08/05/2023 Trouble Eating Well? Never Information not available 08/05/2023 Teeth Or Denture Problems? Never Information not available 08/05/2023 Problems Using The Telephone? Never Information not available 08/05/2023 Tiredness Or Fatigue? Sometimes Information not available 08/05/2023 Have You Had 2 Or More Falls Or Sustained An Injury With A Fall In The Last Year? Yes Information no t available 08/05/2023 Do You Have Difficulty With Walking Or Balance? No Information not available 08/05/2023 Do You Currently Use A Hearing Device? Yes Information not available 08/05/2023 Do You Currently Have Any Trouble With Your Vision? Yes Information no t available 08/05/2023 Do You Exercise For About 20 Minutes Three Or More Days A Week? No- I Usually Do Not Exercise Much Information not available 08/05/2023 Are There Any Safety Concerns In Your Home (see Attached [facility] Pamphlet)? No Information not available 08/05/2023 How Often Do You Have Trouble Taking Medicines The Way You Have Been Told To Take Them? I Always Take Them As Prescribed Information not available 08/05/2023 How Confident Are You That You Can Control And Manage Most Of Your Health Problems? Very Confident Information not available 08/05/2023 Do You Currently Have Any Difficulty With Your Hearing? Yes Information not available 08/05/2023 Date Of Most Recent SBINS 08/05/2023 Information not available 08/05/2023 What Was The Date Of Your Most Recent Tobacco Screening? 08/05/2023 Information not available 08/05/2023 How Much Tobacco Do You Smoke? 1 PPD Information not available 08/05/2023 Sex: Male Functional Status None recorded. Mental Status None recorded. Family History Relationship Description Onset Age of this Age Resolved Age Notes LastModified by Organization Details LastModified Time Mother Family history of cancer of colon [email or web address] Not available 2022 03:52:28 Father Family history of heart failure [email or web address] Not available 2022 03:52:29 Notes:*Problem: Mother: derrick leach, hx tremor, colon cancer Father: age 62 [place] Brothers: 3, healthy Sisters: 2, 1 with DM, 1 breast CA in remission Children: 4 adopted Family History of: Hypertension: no Hyperlipidemia: unknown Heart disease: father, paternal uncles Colorectal cancer: yes Mental illness: no Other: yes tremor Medical History No medical history recorded. Immunizations Vaccine Type Date Status Provider Name and Address Organization Details Recorded Time COVID-19, mRNA, LNP-S, PF, serge-sucrose, 30 mcg/0.3 mL 08/05/2023 completed ANUJ lugo [place] [facility] 08/05/2023 15:04:19 Tdap 11/12/2021 completed Not Available [employer] 01 / 17:25:09 Tdap 11/29/2010 completed Not Available [facility] 17:25:09 Tdap 11/30/2022 completed Not Available [facility] 17:25:09 zoster live 05/07/2011 completed Not Available [facility] 08/06/2023 17:25:09 Pneumococcal conjugate PCV 13 05/07/2017 completed Not Available [facility] 08/06/2023 17:25:09 Td(adult) unspecified formulation 12/13/1999 completed Not Available [facility] 08/06/2023 17:25:09 COVID-19, mRNA, LNP-S, PF, 100 mcg/0.5mL dose or 50 mcg/0.25mL dose 10/24/2020 completed Not Available [facility] 08/06/2023 17:25:09 COVID-19, mRNA, LNP-S, PF, 100 mcg/0.5mL dose or 50 mcg/0.25mL dose 11/12/2021 completed Not Available [facility] 08/06/2023 17:25:09 COVID-19, mRNA, LNP-S, PF, 100 mcg/0.5mL dose or 50 mcg/0.25mL dose 11/21/2020 completed Not Available [facility] 08/06/2023 17:25:09 pneumococcal polysaccharide PPV23 12/06/2011 completed Not Available [facility] 2023 17:25:09 influenza, unspecified formulation 08/20/2013 completed Not Available [facility] 08/06/2023 17:25:09 COVID-19, mRNA, LNP-S, PF, serge-sucrose, 30 mcg/0.3 mL 05/05/2023 completed Not Available [facility] 08/06/2023 17:25:09 Past Encounters Encounter ID Performer Location Encounter Start Date Encounter Closed Date Diagnosis/Indication Diagnosis SNOMED-CT Code Diagnosis ICD10 Code [id number] [facility] [address] [address] 08/05/2023 12:46:11 08/05/2023 14:45:55 Adult health examination 008855814 Z00.00 Screening for malignant neoplasm of colon 593714153 Z12.11 Nicotine dependence 5629 4008 F17.200 Chronic ob structive pulmonary disease 55592496 J44.9 Iron defic iency anemia 96707611 D50.9 Active or passive immunization 308373587 Z23 [id number] AMINTA KAHN [facility] [address] [facility] [address] 01/01/2024 13:25:24 01/01/2024 14:41:46 Essential tremor 745519724 G25.0 Proteinuria 75028010 R80 .9 History of hematuria 161 514758 Z87.288 [id number] AMINTA KAHN [facility] [address] [place] [address] 02/18/2024 14:21:11 02/18/2024 15:31:22 Tobacco dependence caused by cigarettes 9515659096 0303683 F17.218 Body mass index less than 20 169549367 Z68.1 Gastroesop hageal reflux disease without esophagitis 361384597 K21.9 Proteinuria 98283139 R80 .9 Health Concerns Section Related Observation LastModified by Organization Detai ls LastModified Time None Recorded Concern Status LastModified by Organization Details LastModified Time None Recorded Advance Directives Directive None Recorded Payers Encounter Date Sequence Insurance Name Policy Number Policy Seals Covered Member ID Seals Member ID Guarantor Name 08/05/2023 1 [employer] (MEDICARE REPLACEMENT/ ADVANTAGE - PPO) Klever Holguin [id number] Klever Holguin 01/01/2024 1 [employer] (MEDICARE REPLACEMENT/ ADVANTAGE - PPO) Klever Holguin [id number] Klever Holguin 02/18/2024 1 [employer] (MEDICARE REPLACEMENT/ ADVANTAGE - PPO) Klever Holguin [id number] Klever Holguin Notes Date Note Type Note Provider Name and Address Organization Details Recorded Time 08/05/2023 text/html HPI Notes: Here for annual wellness He hasn't scheduled colonoscopy. no bleeding/melena Insurance wants him to pay deductable for Trelegy, which he can't afford. Taking every other day. He is getting occaisional cramping in RUQ after eating or reaching around to his back. Goes away if he lies down in bed and puts on c-pap, bubbles up. ANUJ lugo, [facility]. 08/05/2023 15:11:45 01/01/2024 text/html HPI Notes: Pt, 78-M, hx of 60 years of smoking, in office today for CC of material being present in urine. Pt. reports he has seen chunks about once per month. He has history of kidney stones, but hasn't had an episode of this type of kidney pain in years. Pt. states he had one episode of diana blood, but that may have been a year ago around the time he was [place] [facility] Colon polyps: Pt. with multiple TA's on last colo. He is scheduled for f/u colo January 12 at [facility]. Skin area of dark pigmentation on left cheek. Pt. reports this has been there a long time and stable. COPD: He follow pulmonary for this. LDCT: Up to date on LDCT, last one 12/05/2023. [address] K[address], [place], [address], [facility], [facility]. 01/01/2024 14:47:55 02/18/2024 text/html HPI Notes: Pt, M 78-here for f/u. Smoking: Pt. would like to get back on Chantix. Denies any prior rx. to medicaiton and it has helped him quit at points. Proteinuria: Pt. reports one instance of seeing a blood clot in his urine since his last UA after he had some whitish material come out. He has Urology f/u in April he states so his referral is complete. Indigestion: Pt reports abdominal pain, sometimes after his rootbeer 3-4 times per week. He is not taking anything to treat it currently. AMINTA KAH[address], [place], [address], [facility]. 02/18/2024 16:23:30
--- OUTSIDE RECORDS SUMMARY | 2024-04-30 06:47 | XMS_ITS | Continuity of Care Document ---
Author Organization [place] - [facility] Address [address] [facility] [place] [address] Care Team Providers Care Senior Supply Chain Analyst Name Role Phone LEORA HELTON Principal Biostatistician DIONNE ZHU Orthopedic Surgeon [facility] Palliativ e Care Assessment No assessment recorded. Plan of Treatment Reminders Order Date Submit Date Provider Last Modified By Organization Details Last Modified Time Details Appointments Follow Up 30 2024 10:00A Nayely Contreras Not available Not available Not available Lab None recorded. Referral None recorded. Procedures None recorded. Surgeries None recorded. Imaging None recorded. Medication Orders famotidin e 40 mg tablet 2023 [facility], [address] [place] [address], [address], [address], 02/18/2024 16:23:31 Chantix Starting Month Box 0.5 mg (11)-1 mg (42) tablets in dose pack 2023 024 [email or web address] [facility], [address] [place] [address], [place] [address], [place], [address], 02/18/2024 16:23:26 Chantix 1 mg tablet 2023 024 [facility], [address] [place] [address], [address], [address], 02/18/2024 16:23:30 Patient TargetsNo targets recorded. Patient Instructions Encounter Date Encounter Id Patient Instructions Last Modified By Organization Details Last Modified Time 02/18/2024 [id number] 3-months sent. -Do the starter pack first - You have 2-month supply of the full dose to take after the starter pack. [email or web address] Not available 02/18/2024 15:16:29 Reason for Referral [...] Urine microscopy and C/S sent over to [facility] for analysis. Referring Physician: Curry Contreras, Family Medicine, Encounter Date: 01/01/2024 Results Created Date Observation Date Name Description Value Unit Range Abnormal Flag Note LastModifiedBy Organization Detail LastModifiedTime 03/29/2004/21/2020 imagi ng/di agnos tic resul t No [...] repor t Patien t Name: Jasper Oliveira cory E Unit #: [id number] Loc: DI Orderi ng Provid er: Chloe Winters DNP Accoun t #: [id number] Status : REG CLI Primar y [...] st volume :100 cc Oral: no COMPAR JUAN JOSE: No exams were availa ble for compar juan jose FINDIN GS: Lung Bases: Normal where visual [...] d evalua tion due to under disten marianela. No gross wall thicke roberto. No eviden ce of a mass.1 2 x 8 millim eter stone seen on right side of bladde r. Divert iculum noted at gregory superi or aspect of bladde r Bowel: [...] : Prosta te is enlarg ed. IMPRES MARIANELA: Small nonobs tructi ng stone near the lower pole of the right kidney . 12 millim eter stone in the billiard table assembler ior aspect of the bladde r. Gregory superi or right- sided bladde r divert iculum . Enlarg ed prosta te. No suspic ious renal mass. Stable renal cysts. No eviden ce of hydron ephros is. RADIAT ION DOSE DELIVE RED: Total DLP DATA REPOSI TORY: All CT scans at this facili ty are submit rose marie to the [facility] al Radiol ogy Data Regist ry (NRDR) [...] to clinic al indica tion); or iterat autumn recons tructi on. 1008-0 011: Total DLP = 0.00 mGy-cm Ordere d By: Chloe Winters DNP CC: ------ ------ ------ ------ ------ ------ ------ ------ ------ ------ ------ ------ ---- Dictat ed By: Eron Nichols [id number] 141 Transc ribed By: Jose Hernández 141 This is privil eged, confid ential inform ation intend ed only for the provid er named. Any use or distri bution by any person other than this provid er is strict ly prohib ited. If you receiv e this report in error, please notify us immedi wagnerly at [phone] and return the origin al report to us at the addres s above. Thank- you. INTERFACE [facility] [address] [place], [address] 04/20/2024 14:28:52 Result Notes None recorded. Problems Name Problem SNOMED Code Status Onset Date Resolution Date Notes Provider Name and Address Organization Details Recorded Time Low back pain 360726206 Active 2014 Problem Code: M54.5; Problem Code Type: ICD-10; Not Available [facility] 4 17:25:09 Hyperlip idemia 45384789 Active 201405/11/20 17 - Comments only - Peter Boone MD - -discuss ed with patient his current ASCVD risk accordin g to the calculat or from the [employer] (17.7% risk over [...] E78.5; Problem Code Type: ICD-10; Not Available [facility] 4 17:25:09 Essentia l tremor 013205816 Active 201411/14/19 23 - Comments only - Peter Boone MD - Relative ly stable on proprano lol and primidon e, continue Problem Code: G25.0; Problem Code Type: ICD-10; Not Available [facility] 4 17:25:09 Nicotine dependen ce 38509887 Active 201411/14/19 23 - Comments only - Peter Boone MD - Still contempl ative, wants to try back on varenicl ine, has Rx at home. Problem Code: F17.209; Problem Code Type: ICD-10; Not Available [facility] 4 17:25:09 Chronic obstruct autumn pulmonar y disease 84983437 Active 201411/14/19 23 - Comments only - Peter Boone MD - Stable on ICS/LABA /LAMA per pulmonlo gy. 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 Problem Code: G47.33; Problem Code Type: ICD-10; Not Available [facility] 4 17:25:09 History of polyp of colon 647223291 Active 2015 Pt. had 01/20/2024 [place] w/three polyps, rec'd f/u in 3-year, Due 01/19/2027 health permitti ng. AMINTA KAHN [address], [place], [address] , [facility] 4 12:56:21 Acute pharyngi tis 809179076 Completed 201605/08/2017 Problem Code: J02.9; Problem Code Type: ICD-10; Not Available [facility] 3 04:44:17 Iron deficien cy anemia 31039634 Active 202003/25/20 22 - Comments only - Uli Valladares - Redraw labs today Problem Code: D50.9; Problem Code Type: ICD-10; Not Available [facility] 4 17:25:09 Constipa tion 07127240 Active 202103/25/20 22 - Comments only - Uli Valladares - not an issue at this time. Problem Code: K59.00; Problem Code Type: ICD-10; Not Available [facility] 4 17:25:08 Lower urinary tract symptoms due to benign prostati c hypertro phy 14305416645 101 Active 202111/14/19 23 - Comments only - Peter Boone MD - Exam today with large prostate . PSA done last fall reassuri ng. bladder scan not c/w signific ant retentio n. Offered medicati ons could use alpha renetta and/or finaster chidi, deferred for now. Problem Code: N40.1; Problem Code Type: ICD-10; Not Available [facility] 4 17:25:09 History of urinary stone 288923039 Active 2021 Problem Code: Z87.442; Problem Code Type: ICD-10; Not Available [facility] 4 17:25:08 Pain of left knee joint 76125629740 4107 Completed 201903/14/2021 Problem Code: M25.562; Problem Code Type: ICD-10; Not Available [facility] 3 04:44:18 Abnormal weight loss 707433318 Completed 201911/13/2022 Problem Code: R63.4; Problem Code Type: ICD-10; Not Available [facility] 3 04:44:18 Essentia l tremor 438666555 Completed 200004/26/2015 Not Available [facility] 3 04:44:18 Obstruct autumn sleep apnea syndrome 19418957 Completed 201404/27/2018 Problem Code: G47.33; Problem Code Type: ICD-10; Not Available [facility] 3 04:44:18 Tobacco dependen ce syndrome 93707712 Completed 200904/09/2023 Not Available [facility] 3 04:44:18 Low back pain 309758185 Completed 200504/26/2015 Not Available [facility] 3 04:44:18 Polyuria 57059815 Completed 202111/12/2021 Problem Code: R35.8; Problem Code Type: ICD-10; Not Available [facility] 3 04:44:19 Polyp of colon 41706194 Completed 201504/09/2023 01/26/20 19 - Comments only - Peter Boone MD - Discusse d f/u 3 years. Problem Code: K63.5; Problem Code Type: ICD-10; Not Available [facility] 3 04:44:19 Anemia 318301735 Completed 202004/09/2023 03/14/20 21 - Comments only - Peter Boone MD - Denies bleeding . UTD colo/end ocscopy. Nutritio n has been issue, get iron/b12 and repeat CBC Problem Code: D64.9; Problem Code Type: ICD-10; Not Available [facility] 3 04:44:19 Hyperlip idemia 78224777 Completed 200504/26/2015 Not Available [facility] 3 04:44:19 Dysphagi a 14009803 Completed 201903/14/2021 Problem Code: R13.10; Problem Code Type: ICD-10; Not Available [facility] 3 04:44:19 Chronic obstruct autumn pulmonar y disease 70021515 Completed 201204/26/2015 Not Available [facility] 3 04:44:19 Nicotine dependen ce 32071447 Completed 200904/26/2015 Problem Code: F17.200; Problem Code Type: ICD-10; Not Available [facility] 3 04:44:19 Acute exacerba tion of chronic obstruct autumn pulmonar y disease 981441327 Completed 201604/07/2017 Problem Code: J44.1; Problem Code Type: ICD-10; Not Available [facility] 3 04:44:20 Obstruct autumn sleep apnea syndrome 21236875 Completed 201004/26/2015 [facility] 3 04:44:20 Itching of skin 691458406 Completed 201708/06/2019 Problem Code: L29.9; Problem Code Type: ICD-10; Not Available [facility] 3 04:44:20 Tobacco dependen ce caused by cigarett es 71404704185 466491 Completed 201801/25/2019 Problem Code: F17.210; Problem Code Type: ICD-10; AMINTA KAHN [address], [place], [address] , [facility]. 4 15:11:06 General unsteadi ness 669073716 Completed 202003/14/2021 Problem Code: R26.81; Problem Code Type: ICD-10; Not Available [facility] 3 04:44:20 Sleep apnea 16950550 Completed 201504/09/2023 Problem Code: G47.30; Problem Code Type: ICD-10; Not Available [facility] 3 04:44:20 Pain of left shoulder joint 89942514055 822621 Completed 202011/12/2021 Problem Code: M25.512; Problem Code Type: ICD-10; Not Available [facility] 3 04:44:21 Delay when starting to pass urine 9663362 Completed 202104/09/2023 12/13/19 22 - Comments only - Peter Boone MD - a/w constipa tion. Treat constipa tion, if it doesn't improve, consider alpha block. prostate exam benign today Problem Code: R39.11; Problem Code Type: ICD-10; Not Available [facility] 3 04:44:21 Blood in urine 50608443 Completed 202205/06/2023 Problem Code: R31.9; Problem Code Type: ICD-10; Not Available [facility] 4 05:35:43 Lung field abnormal 061270481 Active 2022 Problem Code: R91.8; Problem Code Type: ICD-10; Not Available [facility] 4 17:25:09 Underwei ght 564461576 Active 202205/05/20 23 - Comments only - Peter Boone MD - Weight is finally increasi ng. Diet is good. Of course given smoking especial ly I am concerne d about a malignan cy. He had a extensiv e work up when this started last year, weight was going up again until his fall in December 2022. COPD may also b contribu lesag, control has improved on Trelegy. COntinue to follow Problem Code: R63.6; Problem Code Type: ICD-10; Not Available [facility] 4 17:25:08 Proteinu dee 52503470 Active 2023 AMINTA KAHN [address], [place] [id number] , [facility] 4 14:32:47 Tobacco dependen ce caused by cigarett es 19442731382 467677 Active 2023 Problem Code: F17.210; Problem Code Type: ICD-10; AMINTA KAHN Dr, [place] [address] , [facility] 4 15:11:06 Gastroes ophageal reflux disease without esophagi tis 638293554 Active [address], [place] [address] , [facility] 4 15:22:45 Problem Notes None recorded. Medical Equipment None Reported. [...] mouth every 6 hours as needed, max 6/day 2016 active Not Available Not Available Not Avai [...] and Address Organization Details Last Updated DateTime 174.625 cm 19.3 kg/m2 35273.5 7 g 98.8 [degF] 96 % 96 % 82 /min 118 mm[Hg] 68 mm[Hg] [facility] 14:37:00 Social History Question Answer Notes LastModified by Organizat ion Details LastModified Time Tobacco Smoking Status Current Every Day Smoker KIRSTEN SIERRA RN null, [facility] 08/05/2023 13:17:31 Would You Say That, [...] And Wanted Help? (For Example, If You [place] Very Nervous, Lonely, Or Blue; Got Sick [...] Safety Concerns In Your Home (see Attached CDC Pamphlet)? No Information not available 08/05/2023 How [...] hx tremor, colon cancer Father: age 62 [place] Brothers: 3, healthy Sisters: 2, 1 with [...] PF, serge-sucrose, 30 mcg/0.3 mL 08/05/2023 completed SHEELA Arenas - [facility] 08/05/2023 15:04:19 Tdap 11/12/2021 completed Not Available [facility] 17:25:09 Tdap 11/29/2010 completed Not Available [facility] 17:25:09 Tdap 11/30/2022 completed Not Available [facility] 17:25:09 zoster live 05/07/2011 completed Not Available [facility] 08/06/2023 17:25:09 Pneumococcal conjugate PCV 13 05/07/2017 completed Not Available [facility] 08/06/2023 17:25:09 Td(adult) unspecified formulation 12/13/1999 completed Not Available [facility] 08/06/2023 17:25:09 COVID-19, mRNA, LNP-S, PF, 100 mcg/0.5mL dose or 50 mcg/0.25mL dose 10/24/2020 completed Not Available [facility] 08/06/2023 17:25:09 COVID-19, mRNA, LNP-S, PF, 100 mcg/0.5mL dose or 50 mcg/0.25mL dose 11/12/2021 completed Not Available [facility] 08/06/2023 17:25:09 COVID-19, mRNA, LNP-S, PF, 100 mcg/0.5mL dose or 50 mcg/0.25mL dose 11/21/2020 completed Not Available [facility] 08/06/2023 17:25:09 pneumococcal polysaccharide PPV23 12/06/2011 completed Not Available [facility] 2023 17:25:09 influenza, unspecified formulation 08/20/2013 completed Not Available [facility] 08/06/2023 17:25:09 COVID-19, mRNA, LNP-S, PF, serge-sucrose, 30 mcg/0.3 mL 05/05/2023 completed Not Available [facility] 08/06/2023 17:25:09 Past Encounters Encounter ID Performer Location Encounter Start Date Encounter Closed Date Diagnosis/Indication Diagnosis SNOMED-CT Code Diagnosis ICD10 Code [id number] AMINTA KAHN [place] [address] [place] [address] 02/18/2024 14:21:11 02/18/2024 15:31:22 Tobacco dependence caused by cigarettes 8804856291 3004857 F17.218 Body mass index less than 20 839651971 Z68.1 Gastroesop hageal reflux disease without esophagitis 513443741 K21.9 Proteinuria 53688332 R80 .9 Health Concerns Section Related Observation LastModified by Organization Detai ls LastModified Time None Recorded Concern Status LastModified by Organization Details LastModified Time None Recorded Payers Encounter Date Sequence Insurance Name Policy Number Policy Seals Covered Member ID Seals Member ID Guarantor Name 02/18/2024 1 [employer] (MEDICARE REPLACEMENT/ ADVANTAGE - PPO) Klever Holguin [id number] Klever Holguin Notes Date Note Type Note Provider Name and Address Organization Details Recorded Time 02/18/2024 text/html HPI Notes: Pt, M 78-here [...] anything to treat it currently. AMINTA KAHN [address], [place], [address], [facility]. 02/18/2024 16:23:30
--- OUTSIDE RECORDS SUMMARY | 2024-04-30 06:48 | XMS_ITS | Clinical Summary ---
Author Organization Formerly [facility] Address [facility] [place] [address] Care Team Providers Care Deicer Tester Name Role Phone Curry Contreras Primary Care Provider + Allergies No known active allergies Medications Medication Sig Dispensed Refills Start Date End Date Status primidone (MYSOLINE) 250 mg tablet Take 250 mg by mouth 3 times daily. 01/15/2011 Active aspirin 81 mg EC tablet Take 81 mg by mouth daily. Active cholecalciferol, Vitamin D3, 2,000 unit Capsule Take 1 capsule by mouth daily. Active methocarbamol (ROBAXIN) 750 mg Tablet Take 750 mg by mouth 3 times daily. Active primidone (MYSOLINE) 50 mg TabletIndications:Es sential tremor 1/2 tab (50 mg) with each tab of the 250 mg = 275 mg 3 times/day. Increase to 1 tab (50 mg) with each 250 mg = 300 mg three/day if tolerated 90 tablet 11 04/25/2015 Active propranoloL (INDERAL LA) 120 mg Capsule,Sustained Action 24 hr Take 120 mg by mouth daily. Active acetaminophen (Tylenol) 325 mg tablet Take 2 tablets by mouth every 6 hours as needed for Pain. 30 tablet 1 12/25/2022 Active cefPODOXime (Vantin) 200 mg tablet Take 200 mg by mouth 2 times daily. 01/28/2023 Active Active Problems Problem Noted Date Diagnosed Date Severe protein-calorie malnutrition 12/20/2022 Overview (12/20/2022): ess than or equal to 50% of estimated energy requirement for greater than or equal to 5 days, Moderate Fat Loss, and Severe Lean Muscle Loss is consistent with Severe protein-calorie malnutrition in the setting of acute illness or injury ([place], JPEN J Parenteral Enteral Nutr. 2012 November; 36(3): 273-83) Splenic laceration 12/13/2022 Weight loss, unintentional 08/02/2020 Heavy smoker 08/02/2020 COPD (chronic obstructive pulmonary disease) Chronic back pain 04/25/2015 Tremor, essential 03/27/2011 Assessment & Plan (05/09/2015 10:22 AM EDT): He has been responded well to primidone in the past. He may benefit from a slight increase in dosage. I recommend that we had a 25 mg dose to each of the three times daily regimen, and titrate slowly with the goal of taking 300 mg 3 times daily. Ulnar neuropathy History of nephrolithiasis Obstructive sleep apnea Resolved Problems Problem Noted Date Diagnosed Date Resolved Date History of migraines 021 Family History Relation Status Comments Father (Age 62) Heart attack, stroke Mother Alive 87 tremor Other 1 siblings 2 siste rs and 3 brothers, 3 of them have tremor Other 2 had tremor reall y bad Social History Tobacco Use Types Packs/Day Years Used Date Smoking Tobacco: Every Day Cigarettes 0.5 63.7 Started: 07/1960; Last attempted to quit: 07/2020 Smokeless Tobacco: Never Tobacco Cessation:Ready to Q uit: Not Asked; Counseling Given: Not Answered Comments:taking chantix, trying to quit Alcohol Use Standard Drinks/Week Comments No 0 (1 standard drink = 0.6 oz pur e alcohol) DH IPV Inpatient Questions Answer Date Recorded Does Anyone Try to Keep You From Having Contact with Others or Doing Things Outside Your Home? no 12/13/2022 Feels Threatened by Someone no 0608/2022 Feels Unsafe at Home or Work/School no 12/13/2022 Physical Signs of Abuse Present no 12/13/2022 Sex and Gender Information Value Date Recorded Sex Assigned at Not on file Gender Identity Not on file Sexual Orientation Not on file Last Filed Vital Signs Vital Sign Reading Time Taken Comments Blood Pressure 95/71 01/13/2024 10:50 AM EDT Pulse 77 01/13/2024 9:36 AM EDT Temperature 36.7 ??C (98 ??F) 01/13/2024 9:36 AM EDT Respiratory Rate 15 01/13/2024 9:36 AM EDT Oxygen Saturation 98% 01/13/2024 10:50 AM EDT Inhaled Oxygen Concentration - - Weight 56.7 kg (125 lb) 01/13/2024 9:36 AM EDT Height 175.3 cm (5' 9) 01/13/2024 9:36 AM EDT Body Mass Index 18.46 01/13/2024 9:36 AM EDT Plan of Treatment Health Maintenance Due Date Last Done Comments CT Colonography 1945 FIT DNA 1945 FIT 1945 Sigmoidoscopy 1945 Pneumoccocal Vaccine: 65+ (1 of 2 - PCV) 11/02/1953 Hepatitis C Screening 11/02/1965 Tetanus/Diphtheria/Pertussis Vaccines (1 - Tdap) 11/02/1966 Zoster vaccine (1 of 2) 11/02/1997 Covid-19 Vaccine (3 - season) 2024, 11/12/2021 Influenza (Flu) vaccine (1 o f 1 - Influenza standard series) 03/14/2024 Colonoscopy 01/12/2027 01/13/2024, 01/13/2024 Colorectal Cancer Screening 01/12/2027 Sigmoidoscopy (10 year) with FIT yearly 01/12/2034 0 01/13/2024, 01/13/2024 Medical Devices Implanted Type Area Freight Car Inspector Device Identifier Shelf Expiration Date Model / Serial / Lot Plug Occluder Cardvasc 8x13.5mm Embo Slfexp Nitinol [id number]/15 Implanted:Qty : 1 on 12/15/2022 by Peter Munoz MD IMPLANTS N/A: Arterial [employer] 07/13/2027 [id number] / / [id number] Description:splenic Coil Embo Tornado [id number] x8cm [employer] Push [id number]/15 Implanted:Qty : 2 on 12/15/2022 by Peter Munoz MD IMPLANTS N/A: Arterial [employer] 12/31/2026 [id number] /4-TORNAD O / / [id number] Description:splenic Plug Occluder Cardvasc 8x13.5mm Embo Slfexp Nitinol ([id number])-12/15 Implanted:Qty : 1 on 12/15/2022 by Peter Munoz MD IMPLANTS N/A: Arterial [employer] - [employer] 07/13/2027 [id number] / / [id number] Description:splenic Procedures Procedure Name Priority Date/Time Associated Diagnosis Comments COLONOSCOPY Routine 01/13/2024 9:43 AM EDT from Last 3 Months or Most Recently Relevant to Health Maintenance Results * COLONOSCOPY (01/13/2024 9:43 AM EDT) COLONOSCOPY [facility] Endoscopy Procedure Date: 01/13/2024 9:43 AM ? Patient Name: Klever Holguin ? Date of : 1945 ? Age: 78 ? Order #: [id number] ? Instrument Name: [id number] ? Procedure: ? Colonoscopy Indications: ? Surveillance: Personal history of ? adenomatous polyps on last ? colonoscopy > 3 years ago Providers: ? Lizbet Rodríguez MD, Speedy ? Pato Angulo MD: ?Peter Shafer: ? See the Anesthesia note for ? documentation of the administered ? medications Complications: ? No immediate complications. Procedure: ? The procedure, indications, ? benefits, risks and alternatives ? were explained to the patient. ? Specifically discussed were ? potential complications including, ? but not limited to, bleeding, ? perforation, infection, missing a ? cancer, and adverse medication ? reactions. The patient was placed ? in the left lateral decubitus ? position, and a digital rectal exam ? was performed. The Colonoscope was ? inserted in the anus and under ? direct visualization, advanced to ? the cecum, identified by ? appendiceal orifice and ileocecal ? valve. Careful inspection was made ? as the colonoscope was withdrawn. ? The colonoscopy was performed ? without difficulty. The patient ? tolerated the procedure well. The ? quality of the bowel preparation ? was evaluated using the BBPS ? ([place] Bowel Preparation Scale) ? with scores of: Right Colon = 2, ? Transverse Colon = 2 and Left Colon ? = 2. The total BBPS score equals 6. ? The quality of the bowel ? preparation was good. Scope ? withdrawal time was 15 minutes. ? Findings: ? A 6 mm polyp was found in the transverse colon. The ? polyp was sessile. The polyp was removed with a cold ? snare. Resection and retrieval were complete. ? An 8 mm polyp was found in the transverse colon. The ? polyp was sessile. The polyp was removed with a cold ? snare. Resection and retrieval were complete. ? A 5 mm polyp was found in the descending colon. The ? polyp was sessile. The polyp was removed with a cold ? snare. Resection and retrieval were complete. ? External and internal hemorrhoids were found during ? retroflexion and during endoscopy. The hemorrhoids ? were small. ? Moderate Sedation: ? Not applicable - See Anesthesia documentation Impression: ?- Three small polyps, removed. ? - Hemorrhoids. Recommendation: ?- Await pathology results. ? - Discharge home ambulatory. ? Attending Participation: ? I personally performed the entire procedure. ? Lizbet Rodríguez MD 01/13/2024 10:33:18 AM Number of Addenda: 0 Note Initiated On: 01/13/2024 9:43 AM PROVATION 01/13/2024 9:43 AM EDT Peter Boone MD GENERAL SURGICAL ORD ERABLES PROVATION from Last 3 Months or Most Recently Relevant to Health Maintenance Advance Directives Documents on File Type Date Recorded Patient Hose Handler Expl anation Advance Directives and Livin g Will 05/02/2015 7:48 AM 02/11/12 Advance Directives and Livin g Will 01/13/2024 9:29 AM AD * Do NOT Attempt CPR - Inpatient (Latest Code Status on File) Date Activated Date Inactivated Comments 12/13/2022 10:13 PM 12/25/2022 6:39 PM Question Answer Comments Code Status decision made by: Patient Independent of Code Status d ecision, are there any PRE Arrest limitations (Intubation, Pressors, Cardioversion / Pacing, etc)? Yes PRE Arrest Intubation Permitted? No * Attempt Cardiopulmonary Resuscitation - Inpatient Date Activated Date Inactivated Comments 12/13/2022 9:35 PM 12/13/2022 10:13 PM Question Answer Comments Code Status decision made by: Patient Care Teams Deicer Tester Relationship Specialty Start Date End Date Curry Contreras [place] [address] PCP - General Internal Medicine 01/30/24
--- OUTSIDE RECORDS SUMMARY | 2024-04-30 06:48 | XMS_ITS | Encounter Summary ---
Author Organization [facility] Address [facility] [place] [address] Care Team Providers Care Private Duty Rn Name Role Phone Peter Boone MD Primary Care Provider [phone] Reason for Visit * Auth/Cert (Routine) Specialty Diagnoses / Procedures Referred By Nicol carranza Referred To Contact Diagnoses Tubular adenoma tubular adenoma Procedures PRO COLONOSCOPY, DIAGNOSTIC PRO COLONOSCOPY, BIOPSY PRO COLONOSCOPY, REMV LESN, SNARE PRO ANES, LOWER INTESTINE, SCREENING COLONOSCOPY COLONOSCOPY,SCREENING (WRVU 3.26) Lizbet Rodríguez MD [facility] [place] [address] [facility] Referral ID Status Reason Start Date Expiration Date Visits Re quested Visits Authorized [id number] 1 1 Encounter Details Date Type Department Care Team (Latest Contact Info) Description 01/13/2024 9:16 AM EDT - 01/13/2024 11:05 AM EDT Hospital En[place] [address] Lizbet Rodríguez MD [facility] [place] [address] Discharge Disposition: Home Social History Tobacco Use Types Packs/Day Years Used Date Smoking Tobacco: Every Day Cigarettes 0.5 63.7 Started: 07/1960; Last attempted to quit: 07/2020 Smokeless Tobacco: Never Tobacco Cessation:Ready to Q uit: Not Asked; Counseling Given: Not Answered Comments:taking chantix, trying to quit Alcohol Use Standard Drinks/Week Comments No 0 (1 standard drink = 0.6 oz pur e alcohol) [facility] Inpatient Questions Answer Date Recorded Does Anyone Try to Keep You From Having Contact with Others or Doing Things Outside Your Home? no 12/13/2022 Feels Threatened by Someone no 08/2022 Feels Unsafe at Home or Work/School no 12/13/2022 Physical Signs of Abuse Present no 12/13/2022 Sex and Gender Information Value Date Recorded Sex Assigned at Not on file Gender Identity Not on file Sexual Orientation Not on file documented as of this encounter Last Filed Vital Signs Vital Sign Reading [...] Mass Index 18.46 01/13/2024 9:36 AM EDT documented in this encounter Discharge Instructions * Discharge Instructions* Tamara Snow RN - 01/13/2024 10:46 AM EDT Colonoscopy: What to Expect at Home Your Recovery Your doctor will talk to you about when you will need your next colonoscopy. Your doctor can help you decide how often you need to be checked. This will depend on the results of your test and your risk for colorectal cancer. After the test, you may be bloated or have gas pains. You may need to pass gas. If a biopsy was done or a polyp was removed, you may have streaks of blood in your stool (feces) for a few days. Problems such as heavy rectal bleeding may not occur until several weeks after the test. This isn't common. But it can happen after polyps are removed. This care sheet gives you a general idea about how long it will take for you to recover. But each person recovers at a different pace. Follow the steps below to get better as quickly as possible. How can you care for yourself at home? Activity Rest when you feel tired. You can do your normal activities when it feels okay to do so. Diet Follow your doctor's directions for eating. Unless your doctor has told you not to, drink plenty of fluids. This helps to replace the fluids that were lost during the colon prep. Do not drink alcohol. Medicines Your doctor will tell you if and when you can restart your medicines. He or she will also give you instructions about taking any new medicines. If you take blood thinners, such as warfarin (Coumadin), clopidogrel (Plavix), or aspirin, be sure to talk to your doctor. He or she will tell you if and when to start taking those medicines again. Make sure that you understand exactly what your doctor wants you to do. If polyps were removed or a biopsy was done during the test, your doctor may tell you not to take aspirin or other anti-inflammatory medicines for a few days. These include ibuprofen (Advil, Motrin) and naproxen (Aleve). Other instructions For your safety, do not drive or operate machinery until the medicine wears off and you can think clearly. Your doctor may tell you not to drive or operate machinery until the day after your test. Do not sign legal documents or make major decisions until the medicine wears off and you can think clearly. The anesthesia can make it hard for you to fully understand what you are agreeing to. Additional Information for Sedation Patients For patients who received sedation: You may have received medications before and/or during your procedure which effects your judgement and reaction time. Do not drive, operate machinery, drink alcoholic beverages or make important decisions for 24 hours. Be careful on stairs as you may be unsteady on your feet. You may eat a regular diet as tolerated. Do not smoke if you are alone. IV site: Slight redness or tenderness is normal, you can use a warm compress if you would like. If tenderness and/or redness increase or if foul drainage occurs, please contact your Doctor. Please call [phone] before 8pm Mon-Fri with problems, questions or concerns. If you call after 8pm or on weekends, call the Hospital at [phone] and ask to speak to the Wind Operations Supervisor manager front office and the filler operator will contact that person for you. When should you call for help? Call [phone] anytime you think you may need emergency care. For example, call if: You passed out (lost consciousness). You pass maroon or bloody stools. You have trouble breathing. Call your doctor now or seek immediate medical care if: You have pain that does not get better after you take pain medicine. You are sick to your stomach or cannot drink fluids. You have new or worse belly pain. You have blood in your stools. You have a fever. You cannot pass stools or gas. Watch closely for changes in your health, and be sure to contact your doctor if you have any problems. Where can you learn more? [facility] View your After Visit Summary and more online at [email or web address] If you would like to provide feedback about your hospital experience, please call the Office of Patient and Family Relations at . If you have received this After Visit Summary in error, please immediately return it in person to the department, or notify the [facility] Privacy Office by calling toll free at between the hours of 8AM and 5PM to arrange for our retrieval of the documents at no cost to you. Content Version: 12.2 ?? [id number] [employer]. Care instructions adapted under license by [facility]. If you have questions about a medical condition or this instruction, always ask your healthcare professional. [employer] disclaims any warranty or liability for your use of this information. documented in this encounter Medications at Time of Discharge Medication Sig Dispensed Refills Start Date End Date propranoloL (INDERAL LA) 120 mg Capsule,Sustained Action 24 hr Take 120 mg by mouth daily. cholecalciferol, Vitamin D3, 2,000 unit Capsule Take 1 capsule by mouth daily. methocarbamol (ROBAXIN) 750 mg Tablet Take 750 mg by mouth 3 times daily. primidone (MYSOLINE) 50 mg TabletIndications:Essen tial tremor 1/2 tab (50 mg) with each tab of the 250 mg = 275 mg 3 times/day. Increase to 1 tab (50 mg) with each 250 mg = 300 mg three/day if tolerated 90 tablet 11 04/25/2015 primidone (MYSOLINE) 250 mg tablet Take 250 mg by mouth 3 times daily. 01/15/2011 aspirin 81 mg EC tablet Take 81 mg by mouth daily. cefPODOXime (Vantin) 200 mg tablet Take 200 mg by mouth 2 times daily. 01/28/2023 acetaminophen (Tylenol) 325 mg tablet Take 2 tablets by mouth every 6 hours as needed for Pain. 30 tablet 1 12/25/2022 documented as of this encounter Progress Notes * Tamara Snow RN - 01/13/2024 10:55 AM EDT Patient alert and oriented, vital signs stable. Reviewed discharge instructions; patient and granddaughter verbalized understanding. Copy of instruction sheet with contact numbers for questions/concerns. Pain assessment documented. Patient escorted out of department via wheelchair with granddaughter. 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 Current Outpatient Medications on File Prior to Encounter Medication Sig Dispense Refill cefPODOXime (Vantin) 200 mg tablet Take 200 mg by mouth 2 times daily. propranoloL (INDERAL LA) 120 mg Capsule,Sustained Action 24 hr Take 120 mg by mouth daily. methocarbamol (ROBAXIN) 750 mg Tablet Take 750 mg by mouth 3 times daily. primidone (MYSOLINE) 250 mg tablet Take 250 mg by mouth 3 times daily. acetaminophen (Tylenol) 325 mg tablet Take 2 tablets by mouth every 6 hours as needed for Pain. 30 tablet 1 cholecalciferol, Vitamin D3, 2,000 unit Capsule Take 1 capsule by mouth daily. primidone (MYSOLINE) 50 mg Tablet 1/2 tab (50 mg) with each tab of the 250 mg = 275 mg 3 times/day.Increase to 1 tab (50 mg) with each 250 mg = 300 mg three/day if tolerated 90 tablet 11 aspirin 81 mg EC tablet Take 81 mg by mouth daily. PHYSICAL EXAM: GEN: Alert, cooperative, pleasant and in NAD HEENT: Airway examined, oropharyngeal clear without lesions Mallampati Score: see anesthesia note Neck: Supple, no lymphadenopathy or masses LUNGS: Clear to auscultation HEART: Regular rate and rhythm, normal S1, S2 ABDOMEN: Normal bowel sounds, soft, non tender, non distended EXT: No clubbing, cyanosis or edenoma NEURO: No focal deficits RECENT LABS No results found for this or any previous visit (from the past 24 hour(s)). ASSESSMENT AND PLAN Klever Holguin is a 78 y.o. y/o who presents for endoscopy. Risks and benefits of the procedure explained to the patient. We discussed in depth possible risks include reaction to anesthesia, bleeding, infection, perforation, bruising of other organs in the body, and/or other unforseen complication. All of the patients questions were answered. Patient wishes to proceed and consent was signed. Proceed with the planned endoscopic procedure. ASA grade: see anesthesia note Sedation Plan: anesthesia Lizbet Rodríguez MD Gastroenterology attending Pager [phone] documented in this encounter Plan of Treatment Not on file documented as of this encounter Procedures Procedure Name Priority Date/Time Associated Diagnosis Comments SPECIMEN TO PATHOLOGY Routine 01/13/2024 10:30 AM EDT SPECIMEN TO PATHOLOGY Routine 01/13/2024 10:30 AM EDT SURGICAL PATHOLOGY REPORT Routine 01/13/2024 10:20 AM EDT Colonoscopy, Eliana Douglas ([id number]) 01/13/2024 9:58 AM EDT tubular adenoma COLONOSCOPY Routine 01/13/2024 9:43 AM EDT documented in this encounter Results * Specimen to Pathology (01/13/2024 10:30 AM EDT) AP Specimen 01/13/2024 10:3 0 AM EDT 01/13/2024 10:30 AM EDT Narrative [facility] - 01/13/2024 10:30 AM EDT Specimen requisition ordered. ??Separate Pathology report to follow Lizbet Rodríguez MD PATHOLOGY/CYTOLOG Y ORDERABLES Performing Organization Address [facility] Co de Phone Number [facility] [place] [address] * Specimen to Pathology (01/13/2024 10:30 AM EDT) AP Specimen 01/13/2024 10:3 0 AM EDT 01/13/2024 10:30 AM EDT Narrative [facility] - 01/13/2024 10:30 AM EDT Specimen requisition ordered. ??Separate Pathology report to follow Lizbet Rodríguez MD PATHOLOGY/CYTOLOG Y ORDERABLES Performing Organization Address [facility] [place] [address] * Surgical Pathology Report (01/13/2024 10:20 AM EDT) Final Diagnosis [id number] ? Location: ; [facility]; A The signing pathologist has (i) examined the relevant preparation(s) for the specimen(s) and (ii) rendered or confirmed the diagnosis(es). . ?Surgical Pathology DIAGNOSIS A - Transverse colon polyps, resection (Multiple): - ??Tubular adenoma(s) (multiple fragments). B - Descending colon polyp, resection: - ??Tubular adenoma. CR-PX Electronically signed by: ?Trina Sanchez MD Verified: ??01/16/2024 14:07 ??Pathologist Performed at: ??[place] [place], [place] [id number] Personal Development Coach: Mile Adkins MD, FCAP, ??CLIA Certificate: [id number] SPECIMEN(S) SUBMITTED A - Transverse colon polyps, resection (Multiple) B - Descending colon polyp, resection (1) CLINICAL INFORMATION 78-year-old male, history of polyps SPECIMEN PROCESSING A - Labeled/Fixativ e: Transverse colon polyps, formalin. Quantity/Size: Two, 0.3 1.2 cm. Tissue Description: Soft, rivas-pink, polypoid tissues. Sections/Proces sing: Entirely submitted in 1 cassettes as follows: ?A1: ??2 polypoid tissue fragments, the larger inked and trisected and the smaller ? inked and bisected B - Labeled/Fixativ e: Descending colon polyp, formalin. Quantity/Size: Single, 0.3 cm. Tissue Description: Soft, rivas-pink tissue. Sections/Proces sing: Submitted in toto ??in 1 cassette labeled B1. ??CCP 01/16/2024 2:07 PM EDT [facility] GI Biopsy 01/13/2024 10:2 0 AM EDT 01/13/2024 10:20 AM EDT GI Biopsy 01/13/2024 10:2 0 AM EDT 01/13/2024 10:20 AM EDT Lizbet Rodríguez MD PATHOLOGY/CYTOLOG Y ORDERABLES [facility] [place] [address] * COLONOSCOPY (01/13/2024 9:43 AM EDT) COLONOSCOPY [facility] Endoscopy Procedure Date: 01/13/2024 9:43 AM ? Patient Name: Klever Holguin ? Date of : 1945 ? Age: 78 ? Order #: [id number] ? Instrument Name: [id number] ? Procedure: ? Colonoscopy Indications: ? Surveillance: Personal history of ? adenomatous polyps on last ? colonoscopy > 3 years ago Providers: ? Lizbet Rodríguez MD, Speedy ? Pato Angulo Referring MD: ?Peter Boone Medicines: ? See the Anesthesia note for ? [...] ? was evaluated using the BBPS ? ([place] Patent Bowel Preparation Scale) ? with scores of: [...] Boone MD GENERAL SURGICAL ORD ERABLES PROVATION documented in this encounter Visit Diagnoses Not on filedocumented in this encounter Administered Medications Inactive Administered Medications - up to 3 most recent administrations Medication Order MAR Action Action Date Dose Rate Site albuteroL (Proventil, Ventolin) (2.5 mg/3 mL) (0.083 %) nebulizer solution 2.5 mg 2.5 mg, Nebulization, EVERY 2 HOURS PRN, Starting on Fri01/13/24 at 1025, Until Fri01/13/24 at 1305, Wheezing, Routine lactated ringers infusion 1,000 mL, at 100 mL/hr, Intravenous, CONTINUOUS, Starting on Fri01/13/24 at 0945, Until Fri01/13/24 at 1101, Day of Surgery (Day of Procedure) New Bag 01/13/2024 9:43 AM EDT 1,000 mLs 100 mL/hr documented in this encounter Active and Recently Administered Medications Times are shown in EDT. Continuous Medication Order 01/11/2024 01/12/2024 01/13/2024 lactated ringers infusion (CANCELED) 1,000 mL, at 100 mL/hr, Intravenous, CONTINUOUS, Starting on Fri01/13/24 at 0945, Until Fri01/13/24 at 1101, Day of Surgery (Day of Procedure) 0943 (New Bag - Prov ider: Tomasa Mckeon RN) PRN Medication Order 01/11/2024 01/12/2024 01/13/2024 albuteroL (Proventil, Ventolin) (2.5 mg/3 mL) (0.083 %) nebulizer solution 2.5 mg 2.5 mg, Nebulization, EVERY 2 HOURS PRN, Starting on Fri01/13/24 at 1025, Until Fri01/13/24 at 1305, Wheezing, Routine documented in this encounter Care Teams Private Duty Rn Relationship Specialty Start Date End Date Peter Boone MD PCP - General Family Medicine 07/27/20 01/29/24 documented as of this encounter
--- OUTSIDE RECORDS SUMMARY | 2024-04-30 06:48 | XMS_ITS | Encounter Summary ---
Author Organization [facility] [place] [address] Care Team Providers Care Press Department Manager Name Role Phone Peter Boone MD Primary Care Provider [phone] Encounter Details Date Type Department Care Team (Late st Contact Info) Description 12/13/2022 11:00 PM EDT Ancillary Procedure Radiology Library at [place] [address] Social History Tobacco Use Types Packs/Day Years Used Date Smoking Tobacco: Former Cigarettes 1.5 60 0 07/1960 - 07/2020 Smokeless Tobacco: Never Comments:taking chantix, try ing to quit Alcohol Use Standard Drinks/Week Comments No 0 (1 standard drink = 0.6 oz pur e alcohol) [facility] Inpatient Questions Answer Date Recorded Does Anyone Try to Keep You From Having Contact with Others or Doing Things Outside Your Home? no 12/13/2022 Feels Threatened by Someone no 060 08/2022 Feels Unsafe at Home or Work/School no 12/13/2022 Physical Signs of Abuse Present no 12/13/2022 Sex and Gender Information Value Date Recorded Sex Assigned at Not on file Gender Identity Not on file Sexual Orientation Not on file documented as of this encounter Plan of Treatment Not on file documented as of this encounter Procedures Procedure Name Priority Date/Time Associated Diagnosis Comments REQUEST FOR 2ND READ CT SPINE STAT 12/13/2022 10:54 PM EDT documented in this encounter Results * Request For 2nd Read CT Spine (12/13/2022 10:54 PM EDT) Anatomical Region Laterality Modality C-spine, T-spine, L-spine SO Addenda Addendum by Nancy Arguello MD on 12/14/2022 11:38 AM EDT --------ADDENDUM #1-------- The radiology workflow coordinator informed Kristen Aguero APRN of the impression at 9:48am on 12/14/2022. Thank you for letting us participate in the care of this patient. ??If you are a health care provider and have any questions regarding this report, please contact the number below. ??For patients who have questions please contact the health career discovery teacher that requested your imaging first. ? Electronically signed by: Nancy Arguello MD, [facility] ([phone]), at 12/14/2022 11:33 AM --------ORIGINAL REPORT -------- EXAMINATION: REQUEST FOR 2ND READ CT SPINE CLINICAL HISTORY: s/p fall from ladder; Sending Institution [facility]; Date of exam 20221213; I believe a reinterpretation of this exam may alter care of Patient. Yes TECHNIQUE: CT scan of the thoracic and lumbar spine obtained at [facility] on 11/30/2022 COMPARISON: None FINDINGS: CT Thoracic spine: There is a compression fracture of the T1 vertebral body with mild anterior wedging and mild buckling of the dorsal cortex with no significant spinal canal stenosis. No involvement of the posterior elements. There is a mild anterior wedge compression fracture of the T2 vertebral body with slightly more compression ventrally at T1, also with mild buckling of the dorsal cortex but with no significant spinal canal stenosis. There is a fracture through the superior endplate of T3 with mild superior endplate depression but no overall significant loss of vertebral body height. The posterior cortex is intact. CT lumbar spine: Acute fractures of the right L3 and L4 transverse processes and the left L5 transverse process. No additional lumbar spine fracture. The vertebral bodies are maintained in height and alignment. No significant osseous spinal canal stenosis. IMPRESSION: CT Thoracic spine: Fractures of the T1-T3 vertebral bodies as discussed. CT lumbar spine: Right L3 and L4 and left L5 transverse process fractures. Thank you for letting us participate in the care of this patient. ??If you are a health care provider and have any questions regarding this report, please contact the number below. ??For patients who have questions please contact the health career discovery teacher that requested your imaging first. ? Electronically signed by: Nancy Arguello MD, [facility] ([phone]), at 12/14/2022 9:31 AM Addendum by Nancy Arguello MD on 12/14/2022 11:16 AM EDT --------ADDENDUM #1-------- The radiology workflow coordinator informed Kristen Aguero APRN of the impression at 9:48am on 12/14/2022. --------ORIGINAL REPORT -------- EXAMINATION: REQUEST FOR 2ND READ CT SPINE CLINICAL HISTORY: s/p fall from ladder; Sending Institution [facility]; Date of exam 20221213; I believe a reinterpretation of this exam may alter care of Patient. Yes TECHNIQUE: CT scan of the thoracic and lumbar spine obtained at [facility] on 11/30/2022 COMPARISON: None FINDINGS: CT Thoracic spine: There is a compression fracture of the T1 vertebral body with mild anterior wedging and mild buckling of the dorsal cortex with no significant spinal canal stenosis. No involvement of the posterior elements. There is a mild anterior wedge compression fracture of the T2 vertebral body with slightly more compression ventrally at T1, also with mild buckling of the dorsal cortex but with no significant spinal canal stenosis. There is a fracture through the superior endplate of T3 with mild superior endplate depression but no overall significant loss of vertebral body height. The posterior cortex is intact. CT lumbar spine: Acute fractures of the right L3 and L4 transverse processes and the left L5 transverse process. No additional lumbar spine fracture. The vertebral bodies are maintained in height and alignment. No significant osseous spinal canal stenosis. IMPRESSION: CT Thoracic spine: Fractures of the T1-T3 vertebral bodies as discussed. CT lumbar spine: Right L3 and L4 and left L5 transverse process fractures. Thank you for letting us participate in the care of this patient. ??If you are a health care provider and have any questions regarding this report, please contact the number below. ??For patients who have questions please contact the health career discovery teacher that requested your imaging first. ? Electronically signed by: Nancy Arguello MD, [facility] ([phone]), at 12/14/2022 9:31 AM Impressions 12/14/2022 9:[address] Thoracic spine: Fractures of the T1-T3 vertebral bodies as discussed. CT lumbar spine: Right L3 and L4 and left L5 transverse process fractures. Thank you for letting us participate in the care of this patient. ??If you are a health care provider and have any questions regarding this report, please contact the number below. ??For patients who have questions please contact the health career discovery teacher that requested your imaging first. ? Electronically signed by: Nancy Arguello MD, [facility] ([phone]), at 12/14/2022 9:31 AM Narrative 12/14/2022 9:31 AM EDT EXAMINATION: REQUEST FOR 2ND READ CT SPINE CLINICAL HISTORY: s/p fall from ladder; Sending Institution [facility]; Date of exam 20221213; I believe a reinterpretation of this exam may alter care of Patient. Yes TECHNIQUE: CT scan of the thoracic and lumbar spine obtained at [facility] on 11/30/2022 COMPARISON: None FINDINGS: CT Thoracic spine: There is a compression fracture of the T1 vertebral body with mild anterior wedging and mild buckling of the dorsal cortex with no significant spinal canal stenosis. No involvement of the posterior elements. There is a mild anterior wedge compression fracture of the T2 vertebral body with slightly more compression ventrally at T1, also with mild buckling of the dorsal cortex but with no significant spinal canal stenosis. There is a fracture through the superior endplate of T3 with mild superior endplate depression but no overall significant loss of vertebral body height. The posterior cortex is intact. CT lumbar spine: Acute fractures of the right L3 and L4 transverse processes and the left L5 transverse process. No additional lumbar spine fracture. The vertebral bodies are maintained in height and alignment. No significant osseous spinal canal stenosis. Procedure Note Nancy Arguello MD - 12/14/2022 EXAMINATION: REQUEST FOR 2ND READ CT SPINE CLINICAL HISTORY: s/p fall from ladder; Sending Institution [facility]; Date ofexam 20221213; I believe a reinterpretation of this exam may alter care ofPatient. Yes TECHNIQUE: CT scan of the thoracic and lumbar spine obtained at [facility] on 11/30/2022 COMPARISON: None FINDINGS: CT Thoracic spine: There is a compression fracture of the T1 vertebral body with mildanterior wedging and mild buckling of the dorsal cortex with no significant spinalcanal stenosis. No involvement of the posterior elements. There is a mild anterior wedge compression fracture of the T2 vertebralbody with slightly more compression ventrally at T1, also with mild buckling ofthe dorsal cortex but with no significant spinal canal stenosis. There is a fracture through the superior endplate of T3 with mildsuperior endplate depression but no overall significant loss of vertebral bodyheight. The posterior cortex is intact. CT lumbar spine: Acute fractures of the right L3 and L4 transverse processes and the leftL5 transverse process. No additional lumbar spine fracture. The vertebralbodies are maintained in height and alignment. No significant osseous spinalcanal stenosis. IMPRESSION CT Thoracic spine: Fractures of the T1-T3 vertebral bodies as discussed. CT lumbar spine: Right L3 and L4 and left L5 transverse process fractures. Thank you for letting us participate in the care of this patient. If youare a health care provider and have any questions regarding this report,please contact the number below. For patients who have questions please contactthe health career discovery teacher that requested your imaging first. Electronically signed by: Nancy Arguello MD, [facility]([phone]), at 12/14/2022 9:31 AM Libra Dykes MD IMG OUTSIDE INTERPRE TATION ORDERABLES documented in this encounter Visit Diagnoses Not on filedocumented in this encounter Additional Health Concerns Infection Onset Date Last Indicated Resolved Time COVID-19 Comment:Date of symptom onset: Date of positive test: 12/08/22 Precautions may be discontinued by the provider care team after the required isolation period (10 or 20 days, depending on the clinical circumstances) when the patient is clinically improving and has been afebrile for 24 hours without fever reducing medications. Estimated date patient will be eligible for precaution removal: 12/19/22 Please call [phone] with questions. 12/16/2022 12/16/2022 12/19/2022 11:39 AM EDT documented as of this encounter Care Teams Press Department Manager Relationship Specialty Start Date End Date Peter Boone MD PCP - General Family Medicine 07/27/20 01/29/24 documented as of this encounter
--- OUTSIDE RECORDS SUMMARY | 2024-04-30 06:48 | XMS_ITS | Encounter Summary ---
Author Organization [facility] Address [facility] [place] [address] Care Team Providers Care Insurance Sales Manager Name Role Phone Peter Boone MD Primary Care Provider [phone] Encounter Details Date Type Department Care Team (Late st Contact Info) Description 12/13/2022 10:55 PM EDT Ancillary Procedure Radiology Library at [facility] [place] [address] Social History Tobacco Use Types Packs/Day Years Used Date Smoking Tobacco: Former Cigarettes 1.5 60 0 07/1960 - 07/2020 Smokeless Tobacco: Never Comments:taking chantix, try ing to quit Alcohol Use Standard Drinks/Week Comments No 0 (1 standard drink = 0.6 oz pur e alcohol) [facility] Inpatient Questions Answer Date Recorded Does Anyone [...] Diagnosis Comments REQUEST FOR 2ND READ CT CHEST ABDOMEN PELVIS STAT 12/13/2022 10:53 PM EDT documented in this encounter Results * Request For 2nd Read CT Chest Abdomen Pelvis (12/13/2022 10:53 PM EDT) Anatomical Region Laterality Modality Chest, Abdomen, Pelvis SO Impressions 12/14/2022 11:31 AM EDT Chest: 1. ??Patchy groundglass left upper lobe opacities may reflect pulmonary contusions, aspiration, or infectious/inflammatory process. 2. ??Small air-fluid levels in the medial left lower lobe bulla/cyst, likely secondary to trauma. Trace left pleural effusion. 3. ??Nondisplaced right second through eighth rib fractures and left fourth through seventh rib fractures. Abdomen/pelvis: 1. ??Grade 3 splenic injury with new subcapsular hematoma component involving greater than 50% of surface area. Lacerations measuring up to 5 cm. No active extravasation. 2. ??Moderate hemoperitoneum predominantly within the pelvis. 3. ??Equivocal nondisplaced left sacral alar fracture. 4. ??Focal anterior bladder wall thickening. Direct visualization is recommended to exclude malignancy. Preliminary report signed by: Sammy Castillo at 12/14/2022 9:30 AM I have personally reviewed the image(s) and the resident's interpretation and agree with the findings, AIDA BROOKE MD at 12/14/2022 11:31 AM Thank you for letting us participate in the care of this patient. ??If you are a health care provider and have any questions regarding this report, please contact the number below. ??For patients who have questions please contact the health care provider that requested your imaging first. ? Narrative 12/14/2022 11:31 AM EDT EXAMINATION: REQUEST FOR 2ND READ CT CHEST ABDOMEN PELVIS CLINICAL HISTORY: s/p traumatic fall; Sending Institution [facility]; Date of exam 20221213; I believe a reinterpretation of this exam may alter care of Patient. Yes TECHNIQUE: Helical CT of the chest, abdomen, and pelvis following the intravenous administration of contrast. This exam was performed on 11/30/2022 at [facility]. Oral contrast was not administered. COMPARISON: CT chest abdomen and pelvis 11/30/2022 FINDINGS: Limited exam secondary to respiratory motion artifact. Chest: Lungs and large airways: Central airways are patent. Apical predominant centrilobular emphysema. Multifocal patchy opacities in the left upper lobe (series 11 images 268-321), the largest measuring 10 mm (series 11 image 268). In the bulla/cysts in the medial left lower lobe, there are new air-fluid levels (series 11 images 431 and 452). Bibasilar, left greater than right, atelectasis. Pleura: Trace left layering effusion. No effusion on the right. No pneumothorax Heart/vasculature: Normal size of the heart. Coronary artery calcification. Diffuse calcified atherosclerotic plaque within the aorta and its major branches. No thoracic aortic dissection, stenosis or aneurysm. Normal caliber main pulmonary artery. Lymph nodes: No enlarged lymph nodes. Mediastinum and mohit: Normal. Abdomen/pelvis: Liver: Normal size and attenuation without lesions. Bile ducts: Nondilated. Gallbladder: Calcified gallstone at the gallbladder neck. Normal caliber wall. Pancreas: Normal attenuation without ductal dilatation. Spleen: There is a 10.5 x 3.4 cm subcapsular collection, with greater than 50% of the surface area, with mass effect on the spleen. Hemorrhage attenuation with the subcapsular collection. There are multiple linear hypoattenuating lesions within the spleen with the largest measuring 5 cm consistent with laceration. No evidence of active extravasation. The subcapsular hematoma is new from the 11/30/2022 study and the lacerations are more apparent. Adrenals: Normal. Kidneys: Multiple simple cysts in the bilateral kidneys, the largest of which measures 8.6 cm in the left mid kidney, unchanged from prior. Smaller hypoattenuating lesions are too small to characterize, however, also likely represent cysts. Nonobstructive punctate calculus in the right inferior pole. No hydroureteronephrosis Urinary Bladder: There is a 6 mm calculus in the dependent bladder, previously abutting the posterior lateral wall on 11/30/2022. There is anterior bladder wall thickening measuring up to 0.8 cm. Vasculature: Infrarenal abdominal aortic aneurysm measuring 2.4 cm, compared to the more proximal vessel which measures 1.7 cm. Diffuse calcified atherosclerotic plaque within the aorta and its major branches. Patent portal and hepatic veins. No active extravasation. Lymph Nodes: No enlarged lymph nodes. Bowel: Nondilated small and large bowel. Focal wall thickening the proximal duodenum may represent peristalsis or a small hematoma suggested on the outside interpretation. Normal appendix. Peritoneum and retroperitoneum: There is moderate amount of hemoperitoneum in the dependent portions of the pelvis, increased from the prior exam. No pneumoperitoneum. Abdominal wall: Normal. Reproductive organs: Enlarged prostate with protrusion into the base of the bladder. Osseous structures: Nondisplaced anterior right ribs second through eighth fractures. Nondisplaced lateral left fourth through seventh rib fractures. Equivocal nondisplaced left sacral alar fracture. Unchanged lucent lesion in the left iliac bone which was not evident on the 2019 PET and likely a benign lesion. Please see separate report on this thoracic and lumbar spine. Procedure Note Aida Brooke MD - 12/14/2022 EXAMINATION: REQUEST FOR 2ND READ CT CHEST ABDOMEN PELVIS CLINICAL HISTORY: s/p traumatic fall; Sending Institution [facility]; Date ofexam 20221213; I believe a reinterpretation of this exam may alter care ofPatient. Yes TECHNIQUE: Helical CT of the chest, abdomen, and pelvis following the intravenous administration of contrast. This exam was performed on11/30/2022 at [facility]. Oral contrast was notadministered. COMPARISON: CT chest abdomen and pelvis 11/30/2022 FINDINGS: Limited exam secondary to respiratory motion artifact. Chest: Lungs and large airways: Central airways are patent. Apical predominant centrilobular emphysema. Multifocal patchy opacities in the left upperlobe (series 11 images [id number]), the largest measuring 10 mm (series 11 ). In the bulla/cysts in the medial left lower lobe, there are new air-fluidlevels (series 11 images 431 and 452). Bibasilar, left greater than right,atelectasis. Pleura: Trace left layering effusion. No effusion on the right. Nopneumothorax Heart/vasculature: Normal size of the heart. Coronary arterycalcification. Diffuse calcified atherosclerotic plaque within the aorta and its major branches. No thoracic aortic dissection, stenosis or aneurysm. Normalcaliber main pulmonary artery. Lymph nodes: No enlarged lymph nodes. Mediastinum and mohit: Normal. Abdomen/pelvis: Liver: Normal size and attenuation without lesions. Bile ducts: Nondilated. Gallbladder: Calcified gallstone at the gallbladder neck. Normal caliberwall. Pancreas: Normal attenuation without ductal dilatation. Spleen: There is a 10.5 x 3.4 cm subcapsular collection, with greater than50% of the surface area, with mass effect on the spleen. Hemorrhageattenuation with the subcapsular collection. There are multiple linear hypoattenuatinglesions within the spleen with the largest measuring 5 cm consistent withlaceration. No evidence of active extravasation. The subcapsular hematoma is new fromthe 11/30/2022 study and the lacerations are more apparent. Adrenals: Normal. Kidneys: Multiple simple cysts in the bilateral kidneys, the largest ofwhich measures 8.6 cm in the left mid kidney, unchanged from prior. Smaller hypoattenuating lesions are too small to characterize, however, alsolikely represent cysts. Nonobstructive punctate calculus in the right inferiorpole. No hydroureteronephrosis Urinary Bladder: There is a 6 mm calculus in the dependent bladder,previously abutting the posterior lateral wall on 11/30/2022. There is anteriorbladder wall thickening measuring up to 0.8 cm. Vasculature: Infrarenal abdominal aortic aneurysm measuring 2.4 cm,compared to the more proximal vessel which measures 1.7 cm. Diffuse calcified atherosclerotic plaque within the aorta and its major branches. Patentportal and hepatic veins. No active extravasation. Lymph Nodes: No enlarged lymph nodes. Bowel: Nondilated small and large bowel. Focal wall thickening theproximal duodenum may represent peristalsis or a small hematoma suggested on theoutside interpretation. Normal appendix. Peritoneum and retroperitoneum: There is moderate amount of hemoperitoneumin the dependent portions of the pelvis, increased from the prior exam. No pneumoperitoneum. Abdominal wall: Normal. Reproductive organs: Enlarged prostate with protrusion into the base ofthe bladder. Osseous structures: Nondisplaced anterior right ribs second througheighth fractures. Nondisplaced lateral left fourth through seventh ribfractures. Equivocal nondisplaced left sacral alar fracture. Unchanged lucent lesionin the left iliac bone which was not evident on the 2019 PET and likely abenign lesion. Please see separate report on this thoracic and lumbar spine. IMPRESSION Chest: 1. Patchy groundglass left upper lobe opacities may reflect pulmonary contusions, aspiration, or infectious/inflammatory process. 2. Small air-fluid levels in the medial left lower lobe bulla/cyst,likely secondary to trauma. Trace left pleural effusion. 3. Nondisplaced right second through eighth rib fractures and leftfourth through seventh rib fractures. Abdomen/pelvis: 1. Grade 3 splenic injury with new subcapsular hematoma componentinvolving greater than 50% of surface area. Lacerations measuring up to 5 cm. Noactive extravasation. 2. Moderate hemoperitoneum predominantly within the pelvis. 3. Equivocal nondisplaced left sacral alar fracture. 4. Focal anterior bladder wall thickening. Direct visualization isrecommended to exclude malignancy. Preliminary report signed by: Sammy Castillo at 12/14/2022 9:30 AM I have personally reviewed the image(s) and the resident's interpretationand agree with the findings, AIDA BROOKE MD at 12/14/2022 11:31 AM Thank you for letting us participate in the care of this patient. If youare a health care provider and have any questions regarding this report,please contact the number below. For patients who have questions please contactthe health care provider that requested your imaging first. Libra Dykes MD IMG OUTSIDE [facility] TATION ORDERABLES documented in this encounter Visit [...] eligible for precaution removal: 12/19/22 Please call [phone] with questions. 12/16/2022 12/16/2022 12/19/2022 11:39 AM EDT documented as of this encounter Care Teams Insurance Sales Manager Relationship Specialty Start Date End Date Peter Boone MD PCP - General Family Medicine 07/27/20 01/29/24 documented as of this encounter
--- OUTSIDE RECORDS SUMMARY | 2024-04-30 06:48 | XMS_ITS | Encounter Summary ---
Author Organization [facility] Address [facility] [place] [address] Care Team Providers Care Special Needs Child Caregiver Name Role Phone Peter Boone MD Primary Care Provider [phone] Encounter Details Date Type Department Care Team (Late st Contact Info) Description 12/13/2022 11:05 PM EDT Ancillary Procedure Radiology Library at [place] [address] Social History Tobacco Use Types Packs/Day Years Used Date Smoking Tobacco: Former Cigarettes 1.5 60 0 07/1960 - 07/2020 Smokeless Tobacco: Never Comments:taking chantix, try ing to quit Alcohol Use Standard Drinks/Week Comments No 0 (1 standard drink = 0.6 oz pur e alcohol) [facility] Inpatient Questions Answer Date Recorded Does Anyone [...] Diagnosis Comments REQUEST FOR 2ND READ CT HEAD STAT 12/13/2022 10:55 PM EDT documented in this encounter Results * Request For 2nd Read CT Head (12/13/2022 10:55 PM EDT) Anatomical Region Laterality Modality Head SO Impressions 12/14/2022 10:32 AM EDT No significant interval change. Thank you for letting us participate in the care of this patient. ??If you are a health care provider and have any questions regarding this report, please contact the number below. ??For patients who have questions please contact the health daycare teacher that requested your imaging first. ? Narrative 12/14/2022 10:32 AM EDT EXAMINATION: REQUEST FOR 2ND READ CT HEAD CLINICAL HISTORY: s/p fall from ladder; Sending Institution [facility]; Date of exam 20221208; I believe a reinterpretation of this exam may alter care of Patient. Yes TECHNIQUE: CT scan of the head was obtained at [facility] on 12/08/2022 COMPARISON: CT head 12/08/2022 at 0314 FINDINGS: Stable thin subdural hemorrhage along the right-sided of the tentorium and posterior falx. The right lateral frontal subdural hemorrhage is also unchanged. No new hemorrhage. No mass, mass effect, hydrocephalus, midline shift, or evidence of large acute infarction. The osseous structures are stable. Small right frontal scalp contusion. Procedure Note Nancy Arguello MD - 12/14/2022 EXAMINATION: REQUEST FOR 2ND READ CT HEAD CLINICAL HISTORY: s/p fall from [employer]; Sending Institution [facility]; Date ofexam 20221208; I believe a reinterpretation of this exam may alter care ofPatient. Yes TECHNIQUE: [facility]: CT head 12/08/2022 at 0314 FINDINGS: Stable thin subdural hemorrhage along the right-sided of the tentoriumand posterior falx. The right lateral frontal subdural hemorrhage is alsounchanged. No new hemorrhage. No mass, mass effect, hydrocephalus, midline shift, or evidence of largeacute infarction. The osseous structures are stable. Small right frontal scalp contusion. IMPRESSION No significant interval change. Thank you for letting us participate in the care of this patient. If youare a health care provider and have any questions regarding this report,please contact the number below. For patients who have questions please contactthe health daycare teacher that requested your imaging first. Libra Dykes MD IMG OUTSIDE INTERPRE TATION [...] eligible for precaution removal: 12/19/22 Please call [phone] with questions. 12/16/2022 12/16/2022 12/19/2022 11:39 AM EDT documented as of this encounter Care Teams Special Needs Child Caregiver Relationship Specialty Start Date End Date Peter Boone MD PCP - General Family Medicine 07/27/20 01/29/24 documented as of this encounter
--- OUTSIDE RECORDS SUMMARY | 2024-04-30 06:48 | XMS_ITS | Encounter Summary ---
Author Organization [facility] [place] [address] Care Team Providers Care Grocery Sacker Name Role Phone Peter Boone MD Primary Care Provider [phone] Encounter Details Date Type Department Care Team (Latest Contact Info) Description 02/11/2023 Travel Social History Tobacco Use Types Packs/Day Years Used Date Smoking Tobacco: Every Day Cigarettes 0.5 60 Started: 07/1960; Last attempted to quit: 07/2020 Smokeless Tobacco: Never Comments:taking chantix, try ing to quit Alcohol Use Standard Drinks/Week Comments No 0 (1 standard drink = 0.6 oz pur e alcohol) [facility] Inpatient Questions Answer Date Recorded Does [...] on file documented as of this encounter Visit Diagnoses Not on filedocumented in this encounter Additional Health Concerns Infection Onset Date Last Indicated Resolved Time History of COVID-19 Comment:Retesting for COVID is not recommended unless infectious syndrome persists with no alternate explanation. Symptoms started Positive test on 12/08/22 Please do not retest prior to 03/10/23 Please call Infection Prevention [phone] with questions. 12/19/2022 12/19/2022 03/19/2023 8:09 P M EDT documented as of this encounter Care Teams Grocery Sacker Relationship Specialty Start Date End Date Peter Boone MD PCP - General Family Medicine 07/27/20 01/29/24 documented as of this encounter
--- OUTSIDE RECORDS SUMMARY | 2024-04-30 06:48 | XMS_ITS | Encounter Summary ---
Author Organization [facility] Address [facility] [place] [address] Care Team Providers Care Pond Tender Name Role Phone Peter Boone MD Primary Care Provider [phone] Encounter Details Date Type Department Care Team (Latest Contact Info) Description 02/11/2023 12:14 PM EDT - 02/11/2023 11:59 PM EDT Hospital Encounter XRay at [address] [place] [address] Ford Bowie MD [facility] [place] [address] Other fracture of sacrum, initial encounter for closed fracture Discharge Disposition: Home Social History Tobacco Use Types Packs/Day Years Used Date Smoking Tobacco: Every Day Cigarettes 0.5 60 Started: 07/1960; Last attempted to quit: 07/2020 Smokeless Tobacco: Never Comments:taking chantix, try ing to quit Alcohol Use Standard Drinks/Week Comments No 0 (1 standard drink = 0.6 oz pur e alcohol) [facility] Inpatient Questions Answer Date Recorded Does [...] on file documented as of this encounter Medications at Time of Discharge [...] 1 12/25/2022 documented as of this encounter Plan of Treatment Not on file documented as of this encounter Procedures Procedure Name Priority Date/Time Associated Diagnosis Comments XR PELVIS MIN 3 VIEWS Routine 02/11/2023 12:41 PM EDT Other fracture of sacrum, initial encounter for closed fracture documented in this encounter Results * XR Pelvis Min 3 Views (02/11/2023 12:41 PM EDT) Anatomical Region Laterality Modality Pelvis N/A Digital Radiogra phy Impressions 02/11/2023 5:12 PM EDT 1. ??The previously described left sacral ala fracture is not well-visualized by radiograph. 2. ??Mild bilateral hip osteoarthropathy. I have personally reviewed the image(s) and the resident's interpretation and agree with the findings, Kalyn Aguilar MD at 02/11/2023 5:12 PM Thank you for letting us participate in the care of this patient. ??If you are a health care provider and have any questions regarding this report, please contact the number below. ??For patients who have questions please contact the health physician assistant primary care that requested your imaging first. ? Electronically signed by: Kalyn Aguilar MD, [facility] ([phone]), at 02/11/2023 5:12 PM Narrative 02/11/2023 5:12 PM EDT EXAMINATION: XR PELVIS MIN 3 VIEWS CLINICAL HISTORY: left sacral ala fx (as entered by ordering provider in the order requisition) TECHNIQUE: AP, inlet, outlet views of the pelvis. COMPARISON: Radiographs 12/16/2022 CT 12/08/2022 FINDINGS: Diffuse osseous demineralization which in combination with overlying bowel gas limits evaluation of the sacrum and coccyx. CT visualized sacral alar fracture is not appreciated on current radiograph. No new fracture. Normal hip alignment with bilateral subchondral sclerosis and marginal osteophytes. Procedure Note Kalyn Aguilar MD - 02/11/2023 EXAMINATION: XR PELVIS MIN 3 VIEWS CLINICAL HISTORY: left sacral ala fx (as entered by ordering provider inthe order requisition) TECHNIQUE: AP, inlet, outlet views of the pelvis. COMPARISON: Radiographs 12/16/2022 CT 12/08/2022 FINDINGS: Diffuse osseous demineralization which in combination with overlying bowelgas limits evaluation of the sacrum and coccyx. CT visualized sacral alarfracture is not appreciated on current radiograph. No new fracture. Normal hip alignment with bilateral subchondral sclerosis and marginal osteophytes. IMPRESSION 1. The previously described left sacral ala fracture is notwell-visualized by radiograph. 2. Mild bilateral hip osteoarthropathy. I have personally reviewed the image(s) and the resident's interpretationand agree with the findings, Kalyn Aguilar MD at 02/11/2023 5:12 PM Thank you for letting us participate in the care of this patient. If youare a health care provider and have any questions regarding this report,please contact the number below. For patients who have questions please contactthe health physician assistant primary care that requested your imaging first. Electronically signed by: Kalyn Aguilar MD, [facility]([phone]), at 02/11/2023 5:12 PM Ford Bowie MD IMG DX ORDERABLES documented in this encounter Visit Diagnoses Diagnosis Other fracture of sacrum, initial encounter for closed fracture documented in this encounter Additional Health Concerns Infection Onset Date Last Indicated Resolved Time History of COVID-19 Comment:Retesting for COVID is not recommended unless infectious syndrome persists with no alternate explanation. Symptoms started Positive test on 12/08/22 Please do not retest prior to 03/10/23 Please call Infection Prevention [phone] with questions. 12/19/2022 12/19/2022 03/19/2023 8:09 P M EDT documented as of this encounter Care Teams Pond Tender Relationship Specialty Start Date End Date Peter Boone MD PCP - General Family Medicine 07/27/20 01/29/24 documented as of this encounter
--- OUTSIDE RECORDS SUMMARY | 2024-04-30 06:48 | XMS_ITS | Encounter Summary ---
Author Organization [facility] Address [facility] [place] [address] Care Team Providers Care National Facilities Manager Name Role Phone Peter Boone MD Primary Care Provider [phone] Reason for Referral * Physical Therapy (Routine) - Closed Specialty Diagnoses / Procedures Referred By Nicol t Referred To Contact Diagnoses Closed nondisplaced fracture of pelvis, unspecified part of pelvis, initial encounter Elvi Alford PA [facility] [place] [address] Unknown None Referral ID Status Reason Start Date Expiration Date V isits Requested Visits Authorized [id number] Closed Evaluate and Treat Non PCP 02/11/2023 08/10/2023 12 12 Reason for Visit * Reason Comments Establish Care L SACRAL ALA FX 11/12 * Consultation (Routine) - Closed Specialty Diagnoses / Procedures Referred By Contac t Referred To Contact Orthopaedics Diagnoses Sacral fracture Theodore Carlos MD [facility] [place] [address] [facility] [address] [place] [id number] Referral ID Status Reason Start Date Expiration Date Visits Re quested Visits Authorized [id number] Closed 12/18/2022 12/18/2023 1 1 Encounter Details Date Type Department Care Team (Late st Contact Info) Description 02/11/2023 1:00 PM EDT [place] [address] Elvi Alford PA [facility] [place] [address] Closed nondisplaced fracture of pelvis, unspecified part of pelvis, initial encounter Social History Tobacco Use Types Packs/Day Years Used Date Smoking Tobacco: Every Day Cigarettes 0.5 60 Started: 07/1960; Last attempted to quit: 07/2020 Smokeless Tobacco: Never Tobacco Cessation:Ready to Q uit: Not Asked; Counseling Given: Not Answered Comments:taking chantix, trying to quit Alcohol Use Standard Drinks/Week Comments No 0 (1 standard drink = 0.6 oz pur e alcohol) [facility] Inpatient Questions Answer Date Recorded Does Anyone [...] Sign Reading Time Taken Comments Blood Pressure - - Pulse - - Temperature - - Respiratory Rate - - Oxygen Saturation - - Inhaled Oxygen Concentration - - Weight 53.5 kg (118 lb) 02/11/2023 1:02 PM EDT Height 175.3 cm (5' 9) 02/11/2023 1:02 PM EDT Body Mass Index 17.43 02/11/2023 1:02 PM EDT documented in this encounter Progress Notes * Elvi Alford PA - 02/11/2023 1:00 PM EDT PATIENT NAME: Klever Holguin AGE: 77 y.o. MR#: [id number] DATE OF VISIT: 02/11/2023 CHIEF COMPLAINT: 7 week New pt, LEFT sacral ala fracture. DOI 12/25/22 HISTORY OF PRESENT ILLNESS: Mr. Holguin is a 77 y.o. male who comes into clinic today for evaluation of the pelvis. ESTRELLA: fall 10 feet off of a ladder on his back Comes to clinic today with his son. Klever was no aware that he had a pelvis fracture. Feels he is doing well. No pelvis pain. Does not have PT coming to the house and has no interest in this. Currently using a walker for ambulation. Carries it with him sometimes. He is at home at this point. Past medical history: Patient Active Problem List Diagnosis Date Noted Severe protein-calorie malnutrition 12/20/2022 Splenic laceration 12/13/2022 Weight loss, unintentional 08/02/2020 Heavy smoker 08/02/2020 COPD (chronic obstructive pulmonary disease) 08/02/2020 Chronic back pain 04/25/2015 Tremor, essential 03/27/2011 Ulnar neuropathy History of nephrolithiasis Obstructive sleep apnea Medications: cefPODOXime (Vantin) 200 mg tablet acetaminophen (Tylenol) 325 mg tablet propranoloL (INDERAL LA) 120 mg Capsule,Sustained Action 24 hr cholecalciferol, Vitamin D3, 2,000 unit Capsule methocarbamol (ROBAXIN) 750 mg Tablet primidone (MYSOLINE) 50 mg Tablet primidone (MYSOLINE) 250 mg tablet aspirin 81 mg EC tablet Allergies: Allergies Allergen Reactions Aspirin Nausea And Vomiting Social history: Social History Tobacco Use Smoking status: Every Day Packs/day: 0.50 Years: 60.00 Pack years: 30.00 Types: Cigarettes Last attempt to quit: 07/2020 Years since quittin.5 Smokeless tobacco: Never Tobacco comments: taking chantix, trying to quit Substance Use Topics Alcohol use: No Review of systems: No chest pain or shortness of breath No fevers, night sweats or chills Vital signs: Visit Vitals Ht 175.3 cm (5' 9) Wt 53.5 kg (118 lb) BMI 17.43 kg/m?? Physical exam: Mr. Holguin is a 77 y.o. male who is alert and oriented. He is in no acute discomfort and is resting comfortably in the exam room. FF 110 ER 35 IR 5 AB 25 Calf is supple and non tender Imaging studies: I personally reviewed the following I am not able to appreciate Sacral ala fracture on exam today. Assessment: 77 y.o. year-old male 7 week New pt, LEFT sacral ala fracture. DOI 12/25/22 Plan: We had a long discussion regarding the nature of Klever Holguin's chief complaint. . Clinically Kleevr Holguin has great hip ROM. He is ambulating with no assistive devices. We discussed continuing to activity as tolerated with a walker for stability. Discussed FU in 6 weeks with XR however he is adamant that this is not needed. He is not interested in physical therapy. This plan was discussed with the patient and they are in agreement. All of the patient's questions were answered. The patient understand to contact us if they have any other questions or concerns. FU: PT refuses FU care. GLENROY Alford PA-C The above dictation was made with voice recogonition software documented in this encounter Plan of Treatment Scheduled Referrals Name Type Priority Associated Diagnoses Orde r Schedule Referral to Physical Therapy Outpatient Referral Routine Closed nondisplaced fracture of pelvis, unspecified part of pelvis, initial encounter Ordered: 02/11/2023 documented as of this encounter Visit Diagnoses Diagnosis Closed nondisplaced fracture of pelvis, unspecified part of pelvis, initial encounter documented in this encounter Additional Health Concerns Infection Onset Date Last Indicated Resolved Time History of COVID-19 Comment:Retesting for COVID is not recommended unless infectious syndrome persists with no alternate explanation. Symptoms started Positive test on 12/08/22 Please do not retest prior to 03/10/23 Please call Infection Prevention [phone] with questions. 12/19/2022 12/19/2022 03/19/2023 8:09 P M EDT documented as of this encounter Care Teams National Facilities Manager Relationship Specialty Start Date End Date Peter Boone MD PCP - General Family Medicine 07/27/20 01/29/24 documented as of this encounter
--- OUTSIDE RECORDS SUMMARY | 2024-04-30 06:48 | XMS_ITS | Encounter Summary ---
Author Organization [facility] Address [facility] [place] [address] Care Team Providers Care Pig Caster Name Role Phone Peter Boone MD Primary Care Provider [phone] Reason for Visit * Auth/Cert (Routine) Specialty Diagnoses / Procedures Referred By Nicol carranza Referred To Contact Diagnoses Tubular adenoma tubular adenoma Procedures PRO COLONOSCOPY, DIAGNOSTIC PRO COLONOSCOPY, BIOPSY PRO COLONOSCOPY, REMV LESN, SNARE PRO ANES, LOWER INTESTINE, SCREENING COLONOSCOPY COLONOSCOPY,SCREENING (WRVU 3.26) Lizbet Rodríguez MD [facility] [place] [address] [facility] Referral ID Status Reason Start Date Expiration Date Visits Re quested Visits Authorized [id number] 1 1 Encounter Details Date Type Department Care Team (Late st Contact Info) Description 01/13/2024 10:30 AM EDT - 01/13/2024 11:15 AM EDT Surgery [place] [address] Lizbet Rodríguez MD [facility] [place] [address] COLONOSCOPY, POLYPECTOMY, REMOVAL LESION BY SNARE (WRVU 4.57) Social History Tobacco Use Types Packs/Day Years [...] occurs, please contact your Doctor. Please call [phone] before 8pm Mon-Fri with problems, questions or concerns. If you call after 8pm or on weekends, call the Hospital at [phone] and ask to speak to the Charhouse Worker resource protection specialist and the rotary dump operator will contact that person for you. When should you call for help? Call 911 anytime you think you may need emergency [...] any problems. Where can you learn more? [facility] View your After Visit Summary and more online at [email or web address] If you would like to provide feedback about your hospital experience, please call the Office of Patient and Family Relations at . If you have received this After Visit Summary in error, please immediately return it in person to the department, or notify the [facility] Privacy Office by calling toll free at between the hours of 8AM and 5PM to arrange for our retrieval of the documents at no cost to you. Content Version: 12.2 ?? [phone] [employer]. Care instructions adapted under license by [facility]. If you have questions about a medical condition or this instruction, always ask your healthcare professional. [employer] disclaims any warranty or liability for your [...] anesthesia Lizbet Rodríguez MD Gastroenterology attending Pager [phone] documented in this encounter Plan of Treatment Not on file documented as of this encounter Procedures Procedure Name Priority Date/Time Associated Diagnosis Comments SPECIMEN TO PATHOLOGY Routine 01/13/2024 10:30 AM EDT SPECIMEN TO PATHOLOGY Routine 01/13/2024 10:30 AM EDT SURGICAL PATHOLOGY REPORT Routine 01/13/2024 10:20 AM EDT Colonoscopy, Remdahlia King, Snare ([id number]) 01/13/2024 9:58 AM EDT tubular adenoma COLONOSCOPY Routine 01/13/2024 9:43 AM EDT documented in this encounter Results * Specimen to Pathology (01/13/2024 10:30 AM EDT) AP Specimen 01/13/2024 10:3 0 AM EDT 01/13/2024 10:30 AM EDT Narrative [facility] - 01/13/2024 10:30 AM EDT Specimen requisition ordered. ??Separate Pathology report to follow Lizbet Rodríguez MD PATHOLOGY/CYTOLOG Y ORDERABLES Performing Organization Address [facility] [place] [address] * Specimen to Pathology (01/13/2024 10:30 AM EDT) AP Specimen 01/13/2024 10:3 0 AM EDT 01/13/2024 10:30 AM EDT Narrative [facility] - 01/13/2024 10:30 AM EDT Specimen requisition ordered. ??Separate Pathology report to follow Lizbet Rodríguez MD PATHOLOGY/CYTOLOG Y ORDERABLES Performing Organization Address [facility] [place] [address] * Surgical Pathology Report (01/13/2024 10:20 AM EDT) Final Diagnosis [id number] ? Location: 4T; EA07; A The signing pathologist has (i) examined the relevant preparation(s) for the specimen(s) and (ii) rendered or confirmed the diagnosis(es). . ?Surgical Pathology DIAGNOSIS A - Transverse colon polyps, resection (Multiple): - ??Tubular adenoma(s) (multiple fragments). B - Descending colon polyp, resection: - ??Tubular adenoma. CR-PX Electronically signed by: ?Daniel CHAO, Trina Verified: ??01/16/2024 14:07 ??Pathologist Performed at: ??-[facility] [place]ology, [place] [address] Steel Rule Die Maker Apprentice: Mile Adkins MD, FCAP, ??CLIA Certificate: [id number] SPECIMEN(S) SUBMITTED A - Transverse colon polyps, [...] labeled B1. ??CCP 01/16/2024 2:07 PM EDT [facility] GI Biopsy 01/13/2024 10:2 0 AM EDT 01/13/2024 10:20 AM EDT GI Biopsy 01/13/2024 10:2 0 AM EDT 01/13/2024 10:20 AM EDT Lizbet Rodríguez MD PATHOLOGY/CYTOLOG Y ORDERABLES [facility] [place] [address] * COLONOSCOPY (01/13/2024 9:43 AM EDT) COLONOSCOPY [facility] Endoscopy Procedure Date: 01/13/2024 9:43 AM ? Patient Name: Klever Holguin ? Date of : 1945 ? Age: 78 ? Order #: [id number] ? Instrument Name: [id number] ? Procedure: ? Colonoscopy Indications: ? Surveillance: Personal history of ? adenomatous polyps on last ? colonoscopy > 3 years ago Providers: ? Lizbet Rodríguez MD, Speedy ? Paot Angulo MD: ?Peter Boone Medicines: ? See the [...] ? was evaluated using the BBPS ? (Alto Bowel Preparation Scale) ? with scores of: [...] PRN, Starting on Fri01/13/24 at 1025, Until Tu01/13/24 at 1305, Wheezing, Routine lactated ringers infusion 1,000 mL, at 100 mL/hr, Intravenous, CONTINUOUS, Starting on Fri01/13/24 at 0945, Until Tu01/13/24 at 1101, Day of Surgery (Day of Procedure) New Bag 01/13/2024 9:43 AM EDT 1,000 mLs 100 mL/hr documented in this encounter Active and Recently Administered Medications Times are shown in EDT. Continuous Medication Order 01/11/2024 01/12/2024 01/13/2024 lactated ringers infusion (CANCELED) 1,000 mL, at 100 mL/hr, Intravenous, CONTINUOUS, Starting on Fri01/13/24 at 0945, Until Tu01/13/24 at 1101, Day of Surgery (Day of Procedure) 0943 (New Bag - Prov ider: Tomasa Mckeon RN) PRN Medication Order 01/11/2024 01/12/2024 01/13/2024 albuteroL (Proventil, Ventolin) (2.5 mg/3 mL) (0.083 %) nebulizer solution 2.5 mg 2.5 mg, Nebulization, EVERY 2 HOURS PRN, Starting on Fri01/13/24 at 1025, Until Fri01/13/24 at 1305, Wheezing, Routine documented in this encounter Care Teams Pig Caster Relationship Specialty Start Date End Date Peter Boone MD PCP - General Family Medicine 07/27/20 01/29/24 documented as of this encounter
--- OUTSIDE RECORDS SUMMARY | 2024-04-30 06:48 | XMS_ITS | Encounter Summary ---
Author Organization [facility] Address [facility] [place] [address] Care Team Providers Care Regional Engagement Consultant Name Role Phone Peter Boone MD Primary Care Provider [phone] Encounter Details Date Type Department Care Team (Late st Contact Info) Description 12/08/2022 12:05 AM EDT Ancillary Procedure Radiology Library at [facility] [place] [address] Libra Dykes MD [facility] [place] [address] Social History Tobacco Use Types Packs/Day Years Used Date Smoking Tobacco: Former Cigarettes 0.3 50 0 07/1970 - 07/2020 Smokeless Tobacco: Never Comments:taking chantix, try ing to quit Alcohol Use Standard Drinks/Week Comments No 0 (1 standard drink = 0.6 oz pur e alcohol) Sex and Gender Information Value Date Recorded Sex Assigned at Not on file Gender Identity Not on file Sexual Orientation Not on file documented as of this encounter Plan of Treatment Not on file documented as of this encounter Procedures Procedure Name Priority Date/Time Associated Diagnosis Comments FILM LIBRARY STORAGE ONLY CT CHEST ABDOMEN PELVIS Routine 12/08/2022 12:05 AM EDT documented in this encounter Results * Film Library- Storage Only CT Chest Abdomen Pelvis (12/08/2022 12:05 AM EDT) Narrative [facility] [place] 2[place] - 12/13/2022 7:28 AM EDT This exam is auto-finalizing. It's purpose is for storage only. Libra Dykes MD IMG FILM LIBRARY ORD ERABLES [facility] [place], [place] documented in this encounter Visit Diagnoses Not on filedocumented in this encounter Care Teams Regional Engagement Consultant Relationship Specialty Start Date End Date Peter Boone MD PCP - General Family Medicine 07/27/20 01/29/24 documented as of this encounter
--- OUTSIDE RECORDS SUMMARY | 2024-04-30 06:48 | XMS_ITS | Encounter Summary ---
Author Organization [facility] [place] [address] Care Team Providers Care Thread Cutter Name Role Phone Peter Boone MD Primary Care Provider [phone] Reason for Visit * Auth/Cert (Routine) Specialty Diagnoses / Procedures Referred By Nicol carranza Referred To Contact Diagnoses Splenic laceration splenic injury Procedures ER IPI Admit Libra Dykes MD [facility] [place] [address] [facility] Referral ID Status Reason Start Date Expiration Date Visits Re quested Visits Authorized [id number] 1 1 Encounter Details Date Type Department Care Team (Latest Contact Info) Description 12/13/2022 8:39 PM EDT - 12/25/2022 4:34 PM EDT Hospital Encounter Surgical Unit Level 3 [place] [address] Libra Dykes MD [facility] [place] [address] Ford Bowie MD [facility] [place] [address] Wolf Leon MD [facility] [place] [address] Compression fracture of T1 vertebra, initial encounter; Other fracture of sacrum, initial encounter for closed fracture; Laceration of spleen, initial encounter Discharge Disposition: Alf Facility Social History Tobacco Use Types Packs/Day Years Used Date Smoking Tobacco: Former Cigarettes 1.5 60 0 07/1960 - 07/2020 Smokeless Tobacco: Never Tobacco Cessation:Counseling Given: Not Answered Comments:taking chantix, trying to [...] Sign Reading Time Taken Comments Blood Pressure 117/70 12/25/2022 2:07 PM EDT Pulse 76 12/22/2022 4:03 AM EDT Temperature 37.1 ??C (98.8 ??F) 12/25/2022 2:07 PM ED T Respiratory Rate 16 12/25/2022 2:07 PM EDT Oxygen Saturation 93% 12/25/2022 2:07 PM EDT Inhaled Oxygen Concentration - - Weight 66.2 kg (146 lb) 12/13/2022 9:01 PM EDT Height 174 cm (5' 8.5) 12/13/2022 9:01 PM EDT Body Mass Index 21.88 12/13/2022 9:01 PM EDT documented in this encounter Discharge Summaries * Theodore Carballo, CLAY DRY PRESS MIXER OPERATOR - 12/25/2022 2:27 PM EDT Trauma Discharge Summary Patient Name: Klever Holguin Patient Age: 77 y.o. : 1945 Attending Physician: Wolf Leon MD Date of Admission: 12/13/2022 Date of Discharge: 12/25/2022 ID: 77 y.o.yo pt admitted on 12/13/2022 with the following injuries: Injury Intervention Follow-up SPINE: -Right L3 and L4 and left L5 transverse process fractures -Fractures of the T1-T3 vertebral bodies ORTHO SPINE: 12/14 SIGNED OFF -Activity: activity as tolerated; no bending, twisting, or lifting >5 lbs -Imaging needed: AP Lateral Cervical and Cervicothoracic Images. Goal is to see T1,2,3 ORTHO SPINE: -2-4 weeks in orthopaedic spine clinic with repeat XRs prior to appointment PULM: -Nondisplaced right second through eighth rib fractures and left fourth through seventh rib fractures TRAUMA: -Pulmonary Toilet -IS 10x/hr -Aerobika -Pain control TRAUMA: -Follow up CXR completed 12/25, Will repeat CXR in 2-4 weeks (01/08-01/22) ABD: -Grade 3 splenic injury with new subcapsular hematoma component involving greater than 50% of surface area. Lacerations measuring up to 5 cm. No active Extravasation. -Moderate hemoperitoneum predominantly within the pelvis TRAUMA: -INTERVENTIONAL RADIOLOGY: 12/15 -12/15/22 Splenic angiogram w/ embolization TRAUMA: - Repeat CBC in clinic in 2-4 weeks ORTHO/EXTR: -Equivocal nondisplaced left sacral alar fracture ORTHO: 12/15 SIGNED OFF -Activity: AAT with walker -DVT prophylaxis: per primary, rec hold for 72 hours -Imaging needed: post mob ap/inlet/outlet -Follow-up: 2 weeks with x-rays inlet/outlet/AP ORTHO: -Follow-up: 2 weeks with x-rays inlet/outlet/AP SKIN: -Arrived with sutures placed to right eyebrow TRAUMA: -Remove sutures on 12/16 (Completed) TRAUMA: -Follow up with PCP Scheduled Appointments: The following appointments have been scheduled on your behalf: Future Appointments Date Time Provider Department Center 01/13/2023 1:00 PM [facility] DX ROOM 2 MH Xray [facility] Rad 01/13/2023 1:15 PM [facility] DX ROOM 2 MH Xray [facility] Rad 01/13/2023 2:00 PM Miranda Correa APRN [facility] [place] [facility] 01/13/2023 3:00 PM Elvi Alford PA [facility] [place] [facility] Other In-hospital Issues: -Acute Pain Secondary Diagnosis: Past Medical History: Diagnosis Date History of migraines History of nephrolithiasis Obstructive sleep apnea Tremor, essential Ulnar neuropathy Allergies: Allergies Allergen Reactions Aspirin Nausea And Vomiting Operations/Procedures: -IR splenic embolization on 12/15 History of Presenting Illness: Mr. Holguin is a 77 yr old man that fell from a ladder on 11/30, at which time he was admitted to [facility] and subsequently discharged. A small splenic contusion noted at that time. He re-presented on 12/08 following [facility] with forehead laceration (s/p suture repair) and high grade splenic laceration. Found to be COVID+ on that presentation. In reading [facility]'s notes there seems to have been some confusionaround how best to proceed with management of his splenic injury. He has been admitted there on theHospital Medicine service with Surgery consultation. He initially refused any intervention and there was discussion of transitioning him to comfort care. The Palliative Care team was consulted at [facility]. It is unclear from the documentation what changed. Maria Esther, his daughter, is his surrogate decisionmaker. Though he has been stable at the OSH for several days without intervention he has a high grade splenic injury. We will discuss with IR in the morning, with the intention to embolize to prevent further progression. WALLACE anton re COVID- 19 management as he was on Paxlovid at [facility]; this medication is not on formulary, unavailable as an inpatient here, so will start Remdesivir. Hospital Course: Klever Holguin is a 77 y.o. male involved in a fall on 11/30 and then again on 12/08 which requiredadmission. He was [place] [facility] [place] for potential splenic embolization. We consulted our Orthopedic Spine team who managed hisT1-T3 vertebral body fractures conservatively. Post mobility xray's were taken which showed no acute changes. He will follow up in 2-4 weeks withrepeat imaging in their clinic. Our Orthopedic team also managed his left sacral alar fracture conservatively with post mobility xray's showing no acute change. He will follow up in 2 weeks with repeat imaging in their clinic. The trauma team managed his bilateral rib fractures with aggressive pulmonary toilet. A PA/Lateral CXR was done the day following admission which showed no pneumothorax. He underwent a repeat PA/Lateral CXR on 12/25 as part of his trauma follow up which showed a small layering effusion. On the day of discharge he was consistently able to pull in over [id number] on IS. Plan to repeat CXR in 2-4 weeks in clinic The trauma team also managed his grade III splenic injury by consulting our Interventional Radiology team who embolized his splenic artery on 12/15. Post procedure his hemoglobin levels remained normaland his right groin site showed no signs of bleeding. He will follow up in the trauma clinic in 2-4weeks with repeat CBC. The trama team removed his right eyebrow sutures which were placed at the OSH on 12/16. He was able to work with PT/OT who determined that he met criteria for a swing bed, at Rehab. Referrals were placed and he was discharged to [facility]. During his hospital stay he remained on COVID precautions until 12/18, marking 10 days since his positive test at [facility]. We curb sided our ID team who recommended starting Remdesivir until day 10 which he completed. Klever Holguin's pain was adequately controlled, He was maintaining adequate oxygen saturation onroom air, and was hemodynamically stable. He was tolerating a diet without abdominal complaints andvoiding adequately. WBC and Hgb were stable. He was Ambulatory with assistive devices. Klever Holguin was evaluated by the Surgery Team and deemed medically stable for discharge on 12/25/22. PLAN: Acute pain -Tylenol 650 q6hr PRN Bowel Regimen -Pericolace BID -Miralax QD PRN -Bisacodyl Suppository PRN -LBM: 12/21 (per patient, one BM every 4-5 days) Severe Malnutrition: -Patient remains with poor PO intake -Nutrition consult, recommending dysphagia soft diet with snack throughout the day -Continue to encourage PO intake, ensure shakes added Resolved in hospital issues: -COVID positive Chronic health conditions: Essential tremor: -Restart home Propranolol 120mg daily -Restart home Primidone 300mg q8h Migraines Obstructive sleep apnea Diet: Dysphagia Soft Activity & weight bearing status: Activity As Tolerated Spine status: Orthopedics DVT PPX on discharge: SCDs, SQ Lovenox BID Consults (Please see development consultant notes): PT/OT Dispo: SNF Incidental Findings: -Focal anterior bladder wall thickening. Direct visualization is recommended to exclude malignancy [x] Incidental Findings Form Completed. Vicente Amin PA-C was able to speak with daughter Star over the telephone on 12/24 @ 10:10 AM about these findings Pending Lab Data at Discharge: None Pertinent Lab Data: No results for input(s): WBC, HGB, HCT, PLATELET, PT, INR, PTT in the last 72 hours. No results for input(s): NA, K, CL, CO2, BUN, CREATININE, GLUCOSE, CALCIUM, MAGNESIUM, PHOS in the last 72 hours. Microbiology Data: None Discharge Physical Examination: Vital Signs: Last value Range last 24hrs Temperature Temp: 37.1 ??C (98.8 ??F) Temp: [36.7 ??C (98.1 ??F)-37.2 ??C (99 ??F)] Heart Rate Heart Rate: 76 Heart Rate: -- Blood Pressure BP: 117/70 BP: (96-134)/(65-77) Respiratory Rate Resp: 16 Resp: [16-18] SpO2 SpO2: 93 % SpO2: [93 %-95 %] Physical Exam: GENERAL: Alert, awake, in no apparent distress, hard of hearing- laying in bed SKIN: Right eyebrow laceration healing well, stitches out NECK: Trachea midline, no edema CHEST/PULMONARY: Breathing comfortably on room air, no use of accessory muscles CARDIAC: Regular rate and rhythm, no murmurs, rubs, gallops appreciated GASTROINTESTINAL: Soft, non tender, non distended EXTREMITIES: Normal ROM all 4 extremities, 2+ pulses throughout NEURO: AAOx3, very hard of hearing Current Medications: The following medications have been prescribed for you. If you notice any adverse reactions to yourmedications, please contact your primary care physician immediately or go to the nearest Emergency Department. Your Medications New Medications Dose Details acetaminophen 325 mg tablet Commonly known as: Tylenol Take 2 tablets by mouth every 6 hours as needed for Pain. 650 mg Quantity: 30 tablet Refills: 1 Continued medications, unchanged Dose Details aspirin EC 81 mg EC (DR) tablet Take 81 mg by mouth daily. 81 mg Refills: 0 cholecalciferol (Vitamin D3) 50 mcg (2,000 unit) Capsule Take 1 capsule by mouth daily. 1 capsule Refills: 0 methocarbamoL 750 mg tablet Commonly known as: Robaxin Take 750 mg by mouth 3 times daily. 750 mg Refills: 0 * primidone 250 mg tablet Commonly known as: Mysoline Take 250 mg by mouth 3 times daily. 250 mg Refills: 0 * primidone 50 mg tablet Commonly known as: Mysoline 1/2 tab (50 mg) with each tab of the 250 mg = 275 mg 3 times/day. Increase to 1 tab (50 mg) with each 250 mg = 300 mg three/day if tolerated Quantity: 90 tablet Refills: 11 propranoloL 120 mg ER 24 hr capsule Commonly known as: Inderal LA Take 120 mg by mouth daily. 120 mg Refills: 0 * This list has 2 medication(s) that are the same as other medications prescribed for you. Read thedirections carefully, and ask your doctor or other care provider to review them with you. Disposition: SNF Scheduled Appointments: The following appointments have been scheduled on your behalf: Future Appointments Date Time Provider Department Center 01/13/2023 1:00 PM [facility] DX ROOM 2 Xray [facility] Rad 01/13/2023 1:15 PM [facility] DX ROOM 2 Xray [facility] Rad 01/13/2023 2:00 PM Miranda Correa APRN [facility] [place] [facility] 01/13/2023 3:00 PM Elvi Alford PA [facility] [place] [facility] Outpatient Services/Follow-up Studies: XR Cervical Spine 2 or 3 Views Standing Status: Future Standing Exp. Date: 06/17/23 Question Response Notes Reason for exam and clinical history: goal is to see T1, 2 ,3 due to fx Where will study be performed? [facility] Radiology [120] XR Pelvis Min 3 Views Standing Status: Future Standing Exp. Date: 06/18/23 Question Response Notes Where will study be performed? [facility] Radiology [120] Portable exam? No Select views: AP with inlet/outlet Reason for exam and clinical history: left sacral ala fx XR Pelvis (Generic) Standing Status: Future Standing Exp. Date: 07/18/23 Order Comments: Please get AP, inlet, outlet view. Thank you Question Response Notes Where will study be performed? [facility] Radiology [120] Reason for exam and clinical history: s/p sacral ala fracture XR Chest PA & Lateral (Generic) Standing Status: Future Standing Exp. Date: 07/10/23 Question Response Notes Where will study be performed? [facility] Radiology [126] Reason for exam and clinical history: follow up rib fx, rule out PTX/JEYSON CBC (with Diff) Standing Status: Future Standing Exp. Date: 12/26/23 Special Instructions Given to Patient at Discharge:. An After Visit Summary was printed and given to the patient. Your care was managed by the Trauma and Acute Care Surgery Team at [facility]. If you have any questions or concerns, please feel free to contact us. Provider Contact Information: General Surgery Scheduling: Nurses line for questions: [facility] (after business hours): CC: MD Sierra Benton APRN Signed: Theodore Carballo APRN Department of Surgery 12/25/2022 Trauma pager [phone] documented in this encounter Discharge Instructions * Discharge Instructions* Cordelia Metcalf PA - 12/15/2022 1:34 PM EDT [facility] Interventional Radiology Post Angiography Instructions Procedure: Splenic angiogram w/ embo Puncture Site: Right groin Date: 12/15/22 Physician: MD Munoz 1. At home we advise you to rest quietly in bed or on the couch with your hip straight until the next morning. Until the next morning you may get up only to go to the bathroom. 2. Resume your previous diet. Drink 6-8 ounces of fluid per hour for the next 8 hours. Avoid alcoholic or caffeinated beverages for 24 hours. 3. Avoid strenuous activity for the next 48 hours, particularly in the next 24 hours. Stair climbing should be kept to a minimum. Do not lift objects heavier than 10-15 pounds for the next 48 hours Avoid straining for bowel movements as you can pop open the clot that has formed on the artery. 4. If you develop bulging under the skin or bleeding at the puncture site, put direct pressure on the puncture site for 15 minutes and call your doctor. If the bleeding persists, reapply pressure, and go to your local Emergency Department. 5. If you notice a sudden change in the feeling (numbness, tingling and/or pain) of your leg on theside of the puncture call your doctor. 6. You may develop a bruise at the puncture site. This should go away within a week to 10 days. If a bulge develops after the first three days, call your doctor or the Radiology/Vascular Department here. Report signs of infection (redness, swelling, discharge, soreness, or fever) to your doctor. 7. Leave the bandage on for 24-48 hours. You may shower the following day after the procedure. You should NOT swim or tub bathe for [address] for 24 hours after the procedure. Do not sign any important documents or smoke unattended for 24 hours. You may return to work with the above restrictions on . 9. If you have any questions or concerns, please call Interventional Radiology Department at until 6pm. After 6pm, or on weekends or hoild, call and ask for the residential field manager expansion envelope maker hand 10. If you are a diabetic and take Metformin or Janumet, Do not take it for 2 days after the procedure. XX You have received medication during your procedure to help lesson anxiety and keep you comfortable and which affects judgement and reaction time. We recommend that you do not drive, operate equipment, sign any important documents, or smoke unattended for 24 hours following your procedure. Because of the sedation please be careful on stairs, as you may be unsteady on your feet. You may resume your regular diet as tolerated. IV site -- slight redness, or tenderness is normal, you can use a warm compress. If tenderness and redness increases or foul drainage occurs, please contact your M. D. Revised 04/29/19 Orthopaedic Spine/Pelvis Surgery Discharge Instructions: Activity: 1. You may perform your daily activities as tolerated but minimize bending at the waist greater than 90 degrees, twisting around your waist, or lifting anything heavier than 5-10 lbs (about a full gallon of water). 2. In general, guide your activity by the thought that if it hurts, don???t do it. 3. In addition, we recommend taking several walks every day after surgery and gradually increasing your distance and duration over the next 2-4 weeks. Diet: 1. Eat your normal diet, with adequate amounts of protein and fiber. 2. Narcotic pain medications can cause constipation, so increase your intake of fluids and fiber ifyou are taking them. 3. You should also take an supy-sud-eackplc stool softener of laxative, such as Katherin-colace or Miralax, to facilitate a bowel movement. Drivin. You are not allowed to drive if you are still requiring narcotic pain medication to manage your discomfort. 2. In general, you may begin to drive once you are off of your pain medications and you are comfortable. Call the Spine Center or your Primary Care Physician if you have questions or concerns. PLEASE CALL US AT [phone] TO SPEAK WITH A SPINE CENTER NURSE IF YOU EXPERIENCE THE FOLLOWING: ?? Fevers greater than 101.5 degrees Fahrenheit ?? Chills or night sweats ?? Nausea or vomiting ?? Wound redness or drainage after the initial surgical dressing is removed ?? New numbness or tingling in your hands or feet ?? New incontinence of bowel or bladder ?? Any questions or concerns Important Phone Numbers: Clinical issues, nurse questions, medication renewals: [phone] (Mon-Fri 8am-5pm, excluding holidays) Appointments for Dr. Gonzalez: [phone] Evenings after 5pm and weekends you may contact the Orthopaedic resident expansion envelope maker hand: [phone], askthe forging operator to page the Orthopaedic resident Follow Up Appointments: 1. You will have follow-up appointments at [facility] as indicated in the ???Future Appointments and Orders?? section of your discharge summary. If X-rays have been ordered for you prior to this appointment you will need to report to the Radiology department, desk 3T, 1 hour prior to your spine center appointment. 2. If you do not have a scheduled follow-up appointment listed at the time of discharge, you will be notified of your scheduled appointment on the next business day. Please call [phone] if you do not hear from us by that time, as your timely follow-up is very important to us. Future Appointments Date Time Provider Department Center 01/13/2023 1:00 PM [facility] DX ROOM 2 Xray [facility] Rad 01/13/2023 1:15 PM [facility] DX ROOM 2 MH Xray [facility] Rad 01/13/2023 2:00 PM Miranda Correa APRN [facility] [place] Sp [facility] 01/13/2023 3:00 PM Elvi Alford PA [facility] [place] [facility] [facility] * Patient Instructions* Theodore Carballo, CLAY DRY PRESS MIXER OPERATOR - 12/25/2022 2:33 PM EDT Discharge Instructions You were found to have the following injuries and will require follow care as outlined below: Injury Intervention Follow-up SPINE: -Right L3 and L4 and left L5 transverse process fractures -Fractures of the T1-T3 vertebral bodies ORTHO SPINE: 12/14 SIGNED OFF -Activity: activity as tolerated; no bending, twisting, or lifting >5 lbs -Imaging needed: AP Lateral Cervical and Cervicothoracic Images. Goal is to see T1,2,3 ORTHO SPINE: -2-4 weeks in orthopaedic spine clinic with repeat XRs prior to appointment PULM: -Nondisplaced right second through eighth rib fractures and left fourth through seventh rib fractures TRAUMA: -Pulmonary Toilet -IS 10x/hr -Aerobika -Pain control TRAUMA: -Follow up CXR completed 12/25, Will repeat CXR in 2-4 weeks (01/08-01/22) ABD: -Grade 3 splenic injury with new subcapsular hematoma component involving greater than 50% of surface area. Lacerations measuring up to 5 cm. No active Extravasation. -Moderate hemoperitoneum predominantly within the pelvis TRAUMA: -INTERVENTIONAL RADIOLOGY: 12/15 -12/15/22 Splenic angiogram w/ embolization TRAUMA: - Repeat CBC in clinic in 2-4 weeks ORTHO/EXTR: -Equivocal nondisplaced left sacral alar fracture ORTHO: 12/15 SIGNED OFF -Activity: AAT with walker -DVT prophylaxis: per primary, rec hold for 72 hours -Imaging needed: post mob ap/inlet/outlet -Follow-up: 2 weeks with x-rays inlet/outlet/AP ORTHO: -Follow-up: 2 weeks with x-rays inlet/outlet/AP SKIN: -Arrived with sutures placed to right eyebrow TRAUMA: -Remove sutures on 12/16 (Completed) TRAUMA: -Follow up with PCP As a result of your CT scans, you were found to have the following incidental findings, please discuss with your primary care provider at you next visit: -Focal anterior bladder wall thickening. Direct visualization is recommended to exclude malignancy [x] Incidental Findings Form Completed. Vicente Amin PA-C was able to speak with daughter Star over the telephone on 12/24 @ 10:10 AM about these findings CALL YOUR PHYSICIAN IF: You have a fever greater than 101F You have diarrhea or vomiting for >24 hours, or stop having bowel movements and passing flatus You have worsening pain, not controlled with your pain medication. You develop redness, swelling, or new drainage from your wounds Follow up: Future Appointments Date Time Provider Department Center 01/13/2023 1:00 PM [facility] DX ROOM 2 MH Xray [facility] Rad 01/13/2023 1:15 PM [facility] DX ROOM 2 MH Xray [facility] Rad 01/13/2023 2:00 PM Miranda Correa APRN [facility] [place] Sp [facility] 01/13/2023 3:00 PM Elvi Alford PA [facility] [place] [facility] [facility] Narcotics: You may be given a prescription for a narcotic medication immediately following your surgery. Narcotics are prescribed for short-term (1-3 days) use to help treat your pain. Narcotics do not reduce inflammation and it is inflammation that is usually a major cause of pain after surgery. Narcotics have many side effects such as constipation, lightheadedness, dizziness, sedation, confusion, nausea and vomiting. Driving and the use of alcohol are not recommended while you are using narcotic pain medications. Non-steroidal anti-inflammatories (NSAIDS) such as aspirin, Aleve and ibuprofen (Advil, Motrin) aremedications that reduce pain and inflammation. To reduce your chance of side effects, it is recommended that you use Tylenol as needed for pain and then NSAIDs and use narcotics as the last resort. Alternative means of pain relief such as rest and relaxation, positioning, as well as decreasing stimulants such as coffee, tea, soft drinks, and nicotine may also help to alleviate pain. If you continue to experience significant pain 4-5 days after your discharge, it may be necessary to be re-evaluated by your physician. Driving Restrictions: - No driving if you are too sore to enter or exit your vehicle comfortably, or if you are too sore to easily check your blind spot. No driving while using prescription pain medications Activities: - Discuss return to work or school with your provide at your follow up appointment in the trauma clinic. - Increase your activity slowly. If it hurts don't do it, but try again the following day. - You may tire easily, so frequent naps may be necessary.. - Talk with your doctor about when you can return to work or school. - You may take a shower but have someone nearby in case you need help. Diet: Eat a well-balanced diet. Fresh fruits, vegetables and fiber-containing foods are recommended. Thiswill assist in wound healing. Recommendations: - Take it easy for two weeks. Remember, If it hurts, don't do it. - Take several slow, short walks each day for the first two weeks, and gradually increase your distance. We recommend at least 4 times a day. Wound Care: - You can shower per usual routine - Do not submerge wounds under water (avoid spas, pools and bathtubs) until fully healed. - Do not use creams, oils, or ointments on the wound. - See follow-up appointments for removal of sutures/marium. Comfort: - Some soreness can be expected. - Take your pain medication as needed and prescribed. - Taper use of pain medication as pain lessens. Follow up appointments: 1. You will have [place] appointments at [facility] as indicated in the ???Future Appointments and Orders?? section of your discharge summary. If X-rays or CT scans have been ordered for you prior to this appointment you will need to report to the Radiology department, desk 3T, 1 hour prior to your clinic appointment time. 2. If you do not have a scheduled follow-up appointment listed at the time of discharge, you will be notified of your scheduled appointment on the next business day. Please call [phone] if you do not hear from us by that time, as your timely follow-up is very important to us. Your care was managed by the Trauma and Acute Care Surgery Team at [facility]. If you have any questions or concerns, please feel free to contact us. Provider Contact Information: General Surgery: [facility] (after business hours): Primary Care Physician: Peter Boone documented in this encounter Medications at Time [...] tablet Take 81 mg by mouth daily. acetaminophen (Tylenol) 325 mg tablet Take 2 tablets by mouth every 6 hours as needed for Pain. 30 tablet 1 12/25/2022 documented as of this encounter Progress Notes * Brayan Sosa RN - 12/25/2022 4:25 PM EDT Patient discharged to [facility] by [facility] transport. IV removed, site benign. My assessment remains unchanged from my previous assessment. RN Discussed pain management with patient, pain tolerable. Patient has all belongings and supplies needed. Report given to Angelica DOUGLAS and [facility] crew. All questions answered. RN encouraged to call with questions or concerns. Pt was sheet drawn to EMS stretcher with 3 assist. * Gayla Soloomn - 12/25/2022 2:32 PM EDT Office of Care Management/Florist Helper Patient Name: Klever Holguin : 1945 Patient has been offered a SNF bed at [facility] arranged for a 1545 transport. Ambulance will need: Medicare ambulance form completed and signed (MD or Carpet Layer RN/HOUSE REGISTRY RN) Copy of patient demographics [place] [facility] [place] [facility] DNR/DNI order, if active No MD to MD report necessary Please call Nursing Report to [phone] , ask for flanging machine operator. Info to accompany patient: Copies of Medication Administration Records and IV sheets for past 10 days. Plan: Florist Helper will be available to the patient and Carpet Layer-RN and/or Social Workerfor further assistance. Patient will be discharged to: [facility] Basic Information Address: [address] [place] [address] Gayla Solomon, Florist Helper * Theodore Carballo, CLAY DRY PRESS MIXER OPERATOR - 12/25/2022 2:30 PM EDT TACS DISCHARGE FOLLOW-UP REQUEST IID/MECHANISM OF INJURY: Klever Holguin is a 77 y.o. male s/p Fall with the following injuries: INJURIES BOX: Injury Intervention Follow-up SPINE: -Right L3 and L4 and left L5 transverse process fractures -Fractures of the T1-T3 vertebral bodies ORTHO SPINE: 12/14 SIGNED OFF -Activity: activity as tolerated; no bending, twisting, or lifting >5 lbs -Imaging needed: AP Lateral Cervical and Cervicothoracic Images. Goal is to see T1,2,3 ORTHO SPINE: -2-4 weeks in orthopaedic spine clinic with repeat XRs prior to appointment PULM: -Nondisplaced right second through eighth rib fractures and left fourth through seventh rib fractures TRAUMA: -Pulmonary Toilet -IS 10x/hr -Aerobika -Pain control TRAUMA: -Follow up CXR completed 12/25, Will repeat CXR in 2-4 weeks (01/08-01/22) ABD: -Grade 3 splenic injury with new subcapsular hematoma component involving greater than 50% of surface area. Lacerations measuring up to 5 cm. No active Extravasation. -Moderate hemoperitoneum predominantly within the pelvis TRAUMA: -INTERVENTIONAL RADIOLOGY: 12/15 -12/15/22 Splenic angiogram w/ embolization TRAUMA: - Repeat CBC in clinic in 2-4 weeks ORTHO/EXTR: -Equivocal nondisplaced left sacral alar fracture ORTHO: 12/15 SIGNED OFF -Activity: AAT with walker -DVT prophylaxis: per primary, rec hold for 72 hours -Imaging needed: post mob ap/inlet/outlet -Follow-up: 2 weeks with x-rays inlet/outlet/AP ORTHO: -Follow-up: 2 weeks with x-rays inlet/outlet/AP SKIN: -Arrived with sutures placed to right eyebrow TRAUMA: -Remove sutures on 12/16 (Completed) TRAUMA: -Follow up with PCP FOLLOW-UP NEEDED: Specify Trauma BULK SAUSAGE CASING TIER OFF or Attending and time frame (please indicate reason if attending provider): Trauma BULK SAUSAGE CASING TIER OFF How soon should TACS f/u be? 2-4 weeks Does patient have sutures/marium? When should they be removed and by what service? N/A Are there labs needed prior to TACS F/U? Yes Is there imaging needed for TACS F/U? Yes Imaging and Referral orders entered: Yes Radiology Safety questions done for MRI/CT? No New or current ostomy? Ostomy nurse shared visit No Mobility concerns: Ambulatory w. assistive device Wound vac (requires 60min clinic visit) No On vent? If Yes - Needs to have someone from facility and supplies. No On Dialysis: No INCIDENTAL FINDINGS Incidental Findings (yes/no): Yes OPIOID CONSENT/NARCOTIC AGREEMENTS Current Month Narcotic Consent? No D/c to: retirement facility PCP Name: MD Theodore Benton APRN 12/25/2022 * Theodore Carballo APRN - 12/25/2022 12:02 PM EDT Trauma Daily Progress Note ID/Mechanism of injury: In review of his chart and notes from outside hospital, [facility]. Mr. Holguin fell from a ladder on 11/30, at which time he was admitted to [facility] and subsequently discharged. Small splenic contusion noted at that time. Re- presented on 12/08 following GLF with foreheadlaceration (s/p suture repair) and high grade splenic laceration. Found to be COVID+ on that presentation. In reading [facility]'s notes there seems to have been some confusion around how best to proceed with management of his splenic injury. He had been admitted there on the Hospital Medicine service with Surgery consultation. He initially refused intervention and there was discussion of transitioning him tocomfort care. The Palliative Care service was consulted at [facility]. It is unclear from the documentation what prompted changed. Will speak with his surrogate decision maker and step-daughter, Maria Esther, in the morning. Though he has been stable at the OSH for several days without intervention he has a high grade injury. Will discuss with IR in the morning, with the intention to embolize to prevent further progression. ID was curbside re COVID-19 management as he was on Paxlovid at [facility]; unavailable inpatient here so will start Remdesivir. 24 Hour Events: -Afebrile, vital signs stable overnight -Remains medically ready for discharge Vital Signs: VITALS (24hr Range): Temp Temp: [36.5 ??C (97.7 ??F)-37.2 ??C (99 ??F)] , HR Heart Rate: --, BP BP: (90-134)/(54-77) , RR Resp: [17-18] , SpO2 SpO2: [92 %-95 %] Physical Exam: GENERAL: Alert, awake, in no apparent distress, hard of hearing- laying in bed SKIN: Right eyebrow laceration healing well, stitches out NECK: Trachea midline, no edema CHEST/PULMONARY: Breathing comfortably on room air, no use of accessory muscles CARDIAC: Regular rate and rhythm, no murmurs, rubs, gallops appreciated GASTROINTESTINAL: Soft, non tender, non distended EXTREMITIES: Normal ROM all 4 extremities, 2+ pulses throughout NEURO: AAOx3, very hard of hearing Labs: No results for input(s): WBC, HGB, HCT, PLATELET, PT, INR, PTT in the last 72 hours. No results for input(s): NA, K, CL, CO2, BUN, CREATININE, GLUCOSE, CALCIUM, MAGNESIUM, PHOS in the last 72 hours. Microbiology: -None New Imaging: -None Procedures: -12/15: Splenic arteriography with emobolization with Amplatz plugs, two coils, and Gelfoam pledgets. Assessment: Klever Holguin is a 77 y.o. Male with PMH of seizures and HTN, admitted to the traumaservice for the management of the below injuries and medical conditions. Plan: -Continue to promote PO intake, ensure shakes for protein -CXR completed with small left layer effusion, Will repeat in 2-4 weeks -Remains medically ready for discharge. PT/OT recommending swing bed, referrals placed Traumatic Injuries: Injury Intervention Follow-up SPINE: -Right L3 and L4 and left L5 transverse process fractures -Fractures of the T1-T3 vertebral bodies ORTHO SPINE: 12/14 SIGNED OFF -Activity: activity as tolerated; no bending, twisting, or lifting >5 lbs -Imaging needed: AP Lateral Cervical and Cervicothoracic Images. Goal is to see T1,2,3 ORTHO SPINE: -2-4 weeks in orthopaedic spine clinic with repeat XRs prior to appointment PULM: -Nondisplaced right second through eighth rib fractures and left fourth through seventh rib fractures TRAUMA: -Pulmonary Toilet -IS 10x/hr -Aerobika -Pain control TRAUMA: -Follow up CXR completed 12/25, Will repeat CXR in 2-4 weeks (01/08-01/22) ABD: -Grade 3 splenic injury with new subcapsular hematoma component involving greater than 50% of surface area. Lacerations measuring up to 5 cm. No active Extravasation. -Moderate hemoperitoneum predominantly within the pelvis TRAUMA: -INTERVENTIONAL RADIOLOGY: 12/15 -12/15/22 Splenic angiogram w/ embolization TRAUMA: - Repeat CBC in clinic in 2-4 weeks ORTHO/EXTR: -Equivocal nondisplaced left sacral alar fracture ORTHO: 12/15 SIGNED OFF -Activity: AAT with walker -DVT prophylaxis: per primary, rec hold for 72 hours -Imaging needed: post mob ap/inlet/outlet -Follow-up: 2 weeks with x-rays inlet/outlet/AP ORTHO: -Follow-up: 2 weeks with x-rays inlet/outlet/AP SKIN: -Arrived with sutures placed to right eyebrow TRAUMA: -Remove sutures on 12/16 (Completed) TRAUMA: -Follow up with PCP Acute in hospital issues: Acute pain -Tylenol 650 q6hr PRN Bowel Regimen -Pericolace BID -Miralax QD PRN -Bisacodyl Suppository PRN -LBM: 12/21 (per patient, one BM every 4-5 days) Severe Malnutrition: -Patient remains with poor PO intake -Nutrition consult, recommending dysphagia soft diet with snack throughout the day -Continue to encourage PO intake, ensure shakes added Resolved in hospital issues: -COVID positive Chronic health conditions: Essential tremor: -Restart home Propranolol 120mg daily -Restart home Primidone 300mg q8h Migraines Obstructive sleep apnea Diet: Dysphagia Soft Diet Activity status: Activity As Tolerated Spine status: Orthopedics DVT PPX: SCDs, SQ Lovenox BID GI PPX: Not indicated, tolerating diet Lines/Tubes/Drains: PIV Dispo: TBD Status: Floor Incidental Findings: -Focal anterior bladder wall thickening. Direct visualization is recommended to exclude malignancy [x] Incidental Findings Form Completed. Vicente Amin PA-C was able to speak with daughter Star over the telephone on 12/24 @ 10:10 AM about these findings Theodore Carballo, CLAY DRY PRESS MIXER OPERATOR 12/25/2022 Trauma pager [phone] * Luda Smith RN - 12/25/2022 5:40 AM EDT OUTCOME EVALUATION NOTE: OUTCOME SUMMARY: Patient AOx4, VSS on RA. Denies nausea/vomiting, CP, SOB. Pain controlled w/ scheduled and PRN medications, see MAR. 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 Patient voiding to urinal in bed. LBM 610. Patient sleeping in between care. PLAN MOVING FORWARD: Pain management Mobilize D/C planning INDIVIDUALIZED FALL PREVENTION INTERVENTIONS: Patient-specific fall risk factors per assessment: [current deficits]: Hx of falls, impaired mobility, hospital environment, Assistance [level of assistance required for transfers and ambulation]: SBA FWW Supervision [direct monitoring required during toileting and ADLs]: Eyes on, hands on Surveillance [continuous indirect monitoring]: Masimo, bed alarm * Katia Michelle RN - 12/24/2022 2:23 PM EDT OUTCOME EVALUATION NOTE: OUTCOME SUMMARY: Patient A&Ox4, BP @ 1400 90/54(66) aware & no new orders - otherwise VSS on RA. Denies nausea/vomiting, CP, SOB. Pain controlled w/ scheduled and PRN medications, see MAR. Dressing to R groin CDI. Patient voiding to external catheter. LBM 6. Patient resting in between care. Will continue to monitor. PLAN MOVING FORWARD: Pain control Mobilize D/c planning INDIVIDUALIZED FALL PREVENTION INTERVENTIONS: Patient-specific fall risk factors per assessment: [current deficits]: lines/drains, generalized weakness, pain, medications, hospital environment Assistance [level of assistance required for transfers and ambulation]: SBA w/ FWW Supervision [direct monitoring required during toileting and ADLs]: hands on eyes on Surveillance [continuous indirect monitoring]: masimo, bed alarm, purposeful rounding Patient-specific fall prevention interventions for sensory deficits provided, if applicable: [X] N/A CPG GOAL OUTCOME EVALUATION: * Radha Copeland RD - 12/24/2022 1:35 PM EDT Nutrition Progress Note Klever Holguin is a 77 y.o. male with PMH of seizures and HTN, originally admitted to OSH after falling from a ladder on 11/30/22 and was discharged with a spleen injury. He re-presented to OSH following ground level fall and found to be COVID +. [place] [facility] [place] for further care. Reason for Assessment: Follow-up Nutrition Recommendations: Continue Dysphagia Soft diet per STEEL POURER HELPER --Nepro TID --Snacks: Cottage cheese, yogurt Monitor and encourage po intake --Please record % intake in flowsheets Optimize bowel reg --Last recorded BM 12/21 Please obtain updated weight --Daily weights to trend Current Nutrition Regimen: Active Orders Diet Dysphagia Soft Diet Frequency: Effective Now Number of Occurrences: Until Specified Nourishments Adult diet Oral Supplements Nepro (Renal) Frequency: Effective Now Number of Occurrences: Until Specified Assessment: Lab Results Component Value Date NA 135 12/21/2022 K 3.6 12/21/2022 CL 99 12/21/2022 CO2 28 12/21/2022 BUN 10 12/21/2022 CREATININE 0.46 (L) 12/21/2022 ESTGFR 109 12/21/2022 MAGNESIUM 0.76 12/21/2022 CALCIUM 8.3 (L) 12/21/2022 PHOS 2.7 12/21/2022 AST 38 12/13/2022 ALT 16 12/13/2022 ALKPHOS 122 12/13/2022 BILITOT 0.8 12/13/2022 No results found for: POCGLU Patient Lines/Drains/Airways Status Active Nutritional LDAs Name Placement date Placement time Site Days Peripheral IV Line - Single Lumen 12/20/22 1438 cephalic vein (lateral side of arm), left 20 gauge 12/20/22 1438 -- 4 External Catheter 12/24/22 1000 12/24/22 1000 -- less than 1 Oxygen Therapy / Airway Device: None (Room air) Shift Pressure Injury Prevention Occiput: No Injury Thoracic Spine: No Injury Sacral: Redness, Blanchable Ischial - left: No Injury Ischial - right: No Injury Heel - left: No Injury Heel - right: No Injury Elbow - left: No Injury Elbow - right: No Injury Device Sites: O2 sat monitor, IV sites Other Sites: CPAP at night Last Bowel Movement: 12/21/22 Intake/Output Summary (Last 24 hours) at 12/24/2022 1525 Last data filed at 12/24/2022 1400 Gross per 24 hour Intake 250 ml Output 1075 ml Net -825 ml Relevant medications: lovenox, Pericolace, others noted. Anthropometrics: Admit Weight: 66.23 kg Estimated body mass index is 21.88 kg/m?? as calculated from the following: Height as of this encounter: 174 cm (5' 8.5). Weight as of this encounter: 66.2 kg (146 lb). Pryor Body Weight (IBW) (kg): 71.36 Wt Readings from Last 10 Encounters: 12/13/22 66.2 kg (146 lb) 09/12/20 66.3 kg (146 lb 3.2 oz) 08/01/20 61.6 kg (135 lb 14.4 oz) 04/25/15 81 kg (178 lb 9.6 oz) 01/16/11 93.4 kg (206 lb) No data found. Weight Source: Reported Estimated / Assessed Needs: Kcal / K - 1655 Kcal (20 Kcal/Kg - 25 Kcal/Kg) Estimated Protein Needs: 66.2 - 79 g (1.0 g/Kg - 1.2 g/Kg) Nutrition intake and intake history / interview: 12/24: Pt reports good appetite, noting that he dislikes the Magic Cups d/t high sugar content. Pt on average ordering 3579kcals and 171g protein. Pt averaging 40% meal completion per nursing documentation, likely meeting his nutritional needs. Pended order for updated weight, admit weight is reported. Last BM recorded 12/21. 12/20: Met with Klever at bedside. He reports that he has a good appetite, but does not like the foodthat he has been receiving. He notes that he has been receiving standard trays of items that he does not like and wants items not allowed on his diet like more fresh fruits. Offered trial of Ensure, pt reports that he has tried various supplement drinks before and does not like any of them. Pt agreeable to snacks and trial of Magic Cup. Will send daily menus to assist in the ordering of food preferences. Only recorded weight is reported, new weight requested from RN. Last recorded BM 12/21. Nutrition Focused Physical Exam: Performed (12/20/2022) Subcutaneous Fat Loss Orbital region: Severe Upper arm region (triceps/biceps): Moderate Thoracic and Lumbar regions (ribs, lower back, and maxillary line): Not assessed Lean Muscle Loss Methodist region (temporalis muscle): Severe Clavicle bone region (pectoralis major): Severe Dorsal hand (interosseous muscle): Not assessed Shoulder (deltoid): Severe Scapular bone region (latissimus dorsi, trapezius muscles): Not assessed Thigh region (quadriceps muscle): Not assessed Posterior calf region (gastrocnemius muscle): Mild Fluid Accumulation Fluid Accumulation: Not assessed Malnutrition Diagnosis: Identified: less than or equal to 50% of estimated energy requirement for greater than or equal to 5 days, Moderate Fat Loss, and Severe Lean Muscle Loss is consistent with Severe protein-calorie malnutrition in the setting of acute illness or injury (Checo, JPEN J Parenteral Enteral Nutr. 2012 November; 36(3): 273-83) Nutrition to continue to follow up while inpatient Thanks, Radha Copeland, MS, RD, LD Clinical Nutrition * Aurora Dillon PA - 12/24/2022 10:07 AM EDT Trauma Daily Progress Note ID/Mechanism of injury: In review of his chart and notes from outside hospital, [facility]. Mr. Holguin fell from a ladder on 11/30, at which time he was admitted to [facility] and subsequently discharged. Small splenic contusion noted at that time. Re- presented on 12/08 following GLF with foreheadlaceration (s/p suture repair) and high grade splenic laceration. Found to be COVID+ on that presentation. In reading [facility]'s notes there seems to have been some confusion around how best to proceed with management of his splenic injury. He had been admitted there on the Hospital Medicine service with Surgery consultation. He initially refused intervention and there was discussion of transitioning him tocomfort care. The Palliative Care service was consulted at [facility]. It is unclear from the documentation what prompted changed. Will speak with his surrogate decision maker and step-daughter, Maria Esther, in the morning. Though he has been stable at the OSH for several days without intervention he has a high grade injury. Will discuss with IR in the morning, with the intention to embolize to prevent further progression. ID was curbside re COVID-19 management as he was on Paxlovid at [facility]; unavailable inpatient here so will start Remdesivir. 24 Hour Events: -Afebrile, vital signs stable overnight -Remains medically ready for discharge Vital Signs: VITALS (24hr Range): Temp Temp: [36.6 ??C (97.9 ??F)-36.9 ??C (98.4 ??F)] , HR Heart Rate: --, BP BP: (111-125)/(64-74) , RR Resp: [14-16] , SpO2 SpO2: [90 %-95 %] Physical Exam: GENERAL: Alert, awake, in no apparent distress, hard of hearing- laying in bed SKIN: Right eyebrow laceration healing well, stitches out HEENT: Laceration above right eyebrow healing with sutures removed, dressing clean, no bleeding NECK: Trachea midline, no edema CHEST/PULMONARY: Breathing comfortably on room air, no use of accessory muscles CARDIAC: Regular rate and rhythm, no murmurs, rubs, gallops appreciated GASTROINTESTINAL: Soft, non tender, non distended EXTREMITIES: Normal ROM all 4 extremities, 2+ pulses throughout NEURO: AAOx3, very hard of hearing Labs: Recent Labs 12/22/22 0359 WBC 9.3 HGB 9.9* HCT 30.0* PLATELET 474* No results for input(s): NA, K, CL, CO2, BUN, CREATININE, GLUCOSE, CALCIUM, MAGNESIUM, PHOS in the last 72 hours. Microbiology: -None New Imaging: -None Procedures: -12/15: Splenic arteriography with emobolization with Amplatz plugs, two coils, and Gelfoam pledgets. Assessment: Klever Holguin is a 77 y.o. Male with PMH of seizures and HTN, admitted to the traumaservice for the management of the below injuries and medical conditions. Plan: -Continue to promote PO intake, ensure shakes for protein -PA/lateral CXR ordered for tomorrow morning 12/25 as part of trauma follow up -Remains medically ready for discharge. PT/OT recommending swing bed, referrals placed Traumatic Injuries: Injury Intervention Follow-up SPINE: -Right L3 and L4 and left L5 transverse process fractures -Fractures of the T1-T3 vertebral bodies ORTHO SPINE: 12/14 SIGNED OFF -Activity: activity as tolerated; no bending, twisting, or lifting >5 lbs -Imaging needed: AP Lateral Cervical and Cervicothoracic Images. Goal is to see T1,2,3 ORTHO SPINE: -2-4 weeks in orthopaedic spine clinic with repeat XRs prior to appointment PULM: -Nondisplaced right second through eighth rib fractures and left fourth through seventh rib fractures TRAUMA: -Pulmonary Toilet -IS 10x/hr -Aerobika -Pain control TRAUMA: -Follow up in 10-14 days post injury 12/24-12/28 with repeat CXR (PA and Lateral views) ABD: -Grade 3 splenic injury with new subcapsular hematoma component involving greater than 50% of surface area. Lacerations measuring up to 5 cm. No active Extravasation. -Moderate hemoperitoneum predominantly within the pelvis TRAUMA: -INTERVENTIONAL RADIOLOGY: 12/15 -12/15/22 Splenic angiogram w/ embolization TRAUMA: -TBD ORTHO/EXTR: -Equivocal nondisplaced left sacral alar fracture ORTHO: 12/15 SIGNED OFF -Activity: AAT with walker -DVT prophylaxis: per primary, rec hold for 72 hours -Imaging needed: post mob ap/inlet/outlet -Follow-up: 2 weeks with x-rays inlet/outlet/AP ORTHO: -Follow-up: 2 weeks with x-rays inlet/outlet/AP SKIN: -Arrived with sutures placed to right eyebrow TRAUMA: -Remove sutures on 12/16 (Completed) TRAUMA: -Follow up with PCP Acute in hospital issues: Acute pain -Tylenol 650 q6hr PRN Bowel Regimen -Pericolace BID -Miralax QD PRN -Bisacodyl Suppository PRN -LBM: 12/21 (per patient, one BM every 4-5 days) Severe Malnutrition: -Patient remains with poor PO intake -Nutrition consult, recommending dysphagia soft diet with snack throughout the day -Continue to encourage PO intake, ensure shakes added Resolved in hospital issues: -COVID positive Chronic health conditions: Essential tremor: -Restart home Propranolol 120mg daily -Restart home Primidone 300mg q8h Migraines Obstructive sleep apnea Diet: Dysphagia Soft Diet Activity status: Activity As Tolerated Spine status: Orthopedics DVT PPX: SCDs, SQ Lovenox BID GI PPX: Not indicated, tolerating diet Lines/Tubes/Drains: PIV Dispo: TBD Status: Floor Incidental Findings: -Focal anterior bladder wall thickening. Direct visualization is recommended to exclude malignancy [x] Incidental Findings Form Completed. Vicente Amin PA-C was able to speak with daughter Star over the telephone on 12/24 @ 10:10 AM about these findings AMINTA Brice 12/24/2022 Trauma pager [phone] * Luda Smith RN - 12/24/2022 6:19 AM EDT OUTCOME EVALUATION NOTE: OUTCOME SUMMARY: Patient AOx4, VSS on RA. Denies nausea/vomiting, CP, SOB. Pain controlled w/ scheduled and PRN medications, see SEP. 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 Patient voiding to urinal in bed. LBM 12/21. Patient sleeping in between care. PLAN MOVING FORWARD: Pain management Mobilize D/C planning INDIVIDUALIZED FALL PREVENTION INTERVENTIONS: Patient-specific fall risk factors per assessment: [current deficits]: Hx of falls, impaired mobility, hospital environment, Assistance [level of assistance required for transfers and ambulation]: SBA FWW Supervision [direct monitoring required during toileting and ADLs]: Eyes on, hands on Surveillance [continuous indirect monitoring]: Shira, bed alarm * Wolf Leon MD - 12/23/2022 12:36 PM EDT Trauma Daily Progress Note ID/Mechanism of injury: In review of his chart and notes from outside hospital, [facility]. Mr. Holguin fell from a ladder on 11/30, at which time he was admitted to [facility] and subsequently discharged. Small splenic contusion noted at that time. Re- presented on 12/08 following GLF with foreheadlaceration (s/p suture repair) and high grade splenic laceration. Found to be COVID+ on that presentation. In reading [facility]'s notes there seems to have been some confusion around how best to proceed with management of his splenic injury. He had been admitted there on the Hospital Medicine service with Surgery consultation. He initially refused intervention and there was discussion of transitioning him tocomfort care. The Palliative Care service was consulted at [facility]. It is unclear from the documentation what prompted changed. Will speak with his surrogate decision maker and step-daughter, Maria Esther, in the morning. Though he has been stable at the OSH for several days without intervention he has a high grade injury. Will discuss with IR in the morning, with the intention to embolize to prevent further progression. ID was curbside re COVID-19 management as he was on Paxlovid at [facility]; unavailable inpatient here so will start Remdesivir. 24 Hour Events: -Afebrile, vital signs stable overnight -Remains medically ready for discharge Vital Signs: VITALS (24hr Range): Temp Temp: [36.6 ??C (97.9 ??F)-37.2 ??C (99 ??F)] , HR Heart Rate: --, BP BP: (107-130)/(64-79) , RR Resp: [16-18] , SpO2 SpO2: [92 %-97 %] Physical Exam: GENERAL: Alert, awake, in no apparent distress, hard of hearing- laying in bed SKIN: Right eyebrow laceration healing well, stitches out HEENT: Laceration above right eyebrow healing with sutures removed, dressing clean, no bleeding NECK: Trachea midline, no edema CHEST/PULMONARY: Breathing comfortably on room air, no use of accessory muscles CARDIAC: Regular rate and rhythm, no murmurs, rubs, gallops appreciated GASTROINTESTINAL: Soft, non tender, non distended EXTREMITIES: Normal ROM all 4 extremities, 2+ pulses throughout NEURO: AAOx3, very hard of hearing Labs: Recent Labs 12/22/22 0359 WBC 9.3 HGB 9.9* HCT 30.0* PLATELET 474* Recent Labs 12/21/22 0541 NA 135 K 3.6 CL 99 CO2 28 BUN 10 CREATININE 0.46* GLUCOSE 102 CALCIUM 8.3* MAGNESIUM 0.76 PHOS 2.7 Microbiology: -None New Imaging: -None Procedures: -12/15: Splenic arteriography with emobolization with Amplatz plugs, two coils, and Gelfoam pledgets. Assessment: Klever Holguin is a 77 y.o. Male with PMH of seizures and HTN, admitted to the traumaservice for the management of the below injuries and medical conditions. Plan: -Continue to promote PO intake, ensure shakes for protein -Remains medically ready for discharge. PT/OT recommending swing bed, referrals placed Traumatic Injuries: Injury Intervention Follow-up SPINE: -Right L3 and L4 and left L5 transverse process fractures -Fractures of the T1-T3 vertebral bodies ORTHO SPINE: 12/14 SIGNED OFF -Activity: activity as tolerated; no bending, twisting, or lifting >5 lbs -Imaging needed: AP Lateral Cervical and Cervicothoracic Images. Goal is to see T1,2,3 ORTHO SPINE: -2-4 weeks in orthopaedic spine clinic with repeat XRs prior to appointment PULM: -Nondisplaced right second through eighth rib fractures and left fourth through seventh rib fractures TRAUMA: -Pulmonary Toilet -IS 10x/hr -Aerobika -Pain control TRAUMA: -Follow up in 10-14 days post injury 12/24-12/28 with repeat CXR (PA and Lateral views) ABD: -Grade 3 splenic injury with new subcapsular hematoma component involving greater than 50% of surface area. Lacerations measuring up to 5 cm. No active Extravasation. -Moderate hemoperitoneum predominantly within the pelvis TRAUMA: -INTERVENTIONAL RADIOLOGY: 12/15 -12/15/22 Splenic angiogram w/ embolization TRAUMA: -TBD ORTHO/EXTR: -Equivocal nondisplaced left sacral alar fracture ORTHO: 12/15 SIGNED OFF -Activity: AAT with walker -DVT prophylaxis: per primary, rec hold for 72 hours -Imaging needed: post mob ap/inlet/outlet -Follow-up: 2 weeks with x-rays inlet/outlet/AP ORTHO: -Follow-up: 2 weeks with x-rays inlet/outlet/AP SKIN: -Arrived with sutures placed to right eyebrow TRAUMA: -Remove sutures on 12/16 (Completed) TRAUMA: -Follow up with PCP Acute in hospital issues: Acute pain -Tylenol 650 q6hr PRN Bowel Regimen -Pericolace BID -Miralax QD PRN -Bisacodyl Suppository PRN -LBM: 12/21 (per patient, one BM every 4-5 days) Severe Malnutrition: -Patient remains with poor PO intake -Nutrition consult, recommending dysphagia soft diet with snack throughout the day -Continue to encourage PO intake, ensure shakes added Resolved in hospital issues: -COVID positive Chronic health conditions: Essential tremor: -Restart home Propranolol 120mg daily -Restart home Primidone 300mg q8h Migraines Obstructive sleep apnea Diet: Dysphagia Soft Diet Activity status: Activity As Tolerated Spine status: Orthopedics DVT PPX: SCDs, SQ Lovenox BID GI PPX: Not indicated, tolerating diet Lines/Tubes/Drains: PIV Dispo: TBD Status: Floor Incidental Findings: -Focal anterior bladder wall thickening. Direct visualization is recommended to exclude malignancy [] Incidental Findings Form Completed AMINTA Brice 12/23/2022 Trauma pager [phone] * Jeremy Ibarra PTA - 12/23/2022 10:40 AM EDT Physical Therapy Note Treatment Number PT: 4 Patient Profile: Klever Holguin is a 77 y.o. male PMH of seizures and HTN, originally admitted toOSH after falling from a ladder on 11/30/22 and was discharged with a spleen injury. He re-presentedto OSH following ground level fall and found to be COVID +. [place] [facility] [place] for further care for the following injuries: Traumatic Injuries: Injury Intervention Follow-up SPINE: -Right L3 and L4 and left L5 transverse process fractures -Fractures of the T1-T3 vertebral bodies ORTHO SPINE: 12/14 -Activity: activity as tolerated; no bending, twisting, or lifting >5 lbs -Imaging needed: AP Lateral Cervical and Cervicothoracic Images. Goal is to see T1,2,3. ORTHO SPINE: -2-4 weeks in orthopaedic spine clinic with repeat XRs prior to appointment PULM: -Nondisplaced right second through eighth rib fractures and left fourth through seventh rib fractures TRAUMA: -Pulmonary Toilet -IS 10x/hr -Aerobika -Pain control TRAUMA: -Follow up in 10-14 days post injury 12/24-12/28 with repeat CXR (PA and Lateral views) ABD: -Grade 3 splenic injury with new subcapsular hematoma component involving greater than 50% of surface area. Lacerations measuring up to 5 cm. No active Extravasation. -Moderate hemoperitoneum predominantly within the pelvis TRAUMA: -INTERVENTIONAL RADIOLOGY: 12/15 -12/15/22 Splenic angiogram w/ embolization TRAUMA: -TBD ORTHO/EXTR: -Equivocal nondisplaced left sacral alar fracture ORTHO: 12/16 -Activity: AAT with walker -DVT prophylaxis: per primary, rec hold for 72 hours -Imaging needed: post mob ap/inlet/outlet -Follow-up: 2 weeks with x-rays inlet/outlet/AP ORTHO: -Follow-up: 2 weeks with x-rays inlet/outlet/AP SKIN: -Arrived with sutures placed to right eyebrow TRAUMA: -Remove sutures on 12/16 (Completed) TRAUMA: -Follow up with PCP Patient with the following active problems: Past Medical History: Diagnosis Date History of migraines History of nephrolithiasis Obstructive sleep apnea Tremor, essential Ulnar neuropathy Past Surgical History: Procedure Laterality Date IR ARTERIOGRAM/EMBOLIZATION- SPLENIC 12/15/2022 IR Arteriogram/Embolization - Splenic Peter Munoz MD [facility] INTERVENTIONL RAD Interval History: per 24 Hour Events: -Afebrile, vital signs stable overnight -Remains medically ready for discharge Social History: Pt NANWALEK but was able to ascertain the following Home set-up: reports that he has a sunken living room w/o no hand holds for steps and reports 2 of 4 falls on those stairs Bathroom Set-up: master w/ stall shower, no shower chair Stairs: 5 to enter w/ b/l railings which cannot be reached simultaneously Baseline Mobility: indep but reports that he has people living with him who have helped him w/ IADLs (his dtr Maria Esther's co-workers) Equipment at home: standard walker w/o wheels Fall history: x 4 in the last year, 2 as above and 2 others on stairs w/ hand hold down into livingroom Precautions/Special Considerations: markedly NANWALEK, fall risk, h/o of Szs, pain in ribs and back, B/L, spinal precautions including log roll bed mobility Lines: PIV, Masimo Activity Orders: AAT with spinal precs Diet: dysphagia soft Mobility and Positioning Recommendations: Modified log roll for spine precs but challenging r/t multiple rib Fxs Pt. to utilize FWW and cga for ambulation and transfers with nursing. OOB up in chair for meals Encourage use of IS and deep/breathe and cough, using lung pillow to splint Subjective: Home When therapist asked for pt's goal at this time. Objective: Pt seen for Physical Therapy Treatment and demonstrated the following: Pain: Pt no c/o pain Vital Signs: VSS on RA Mental Status: alert, oriented to person, place, and time Bed Mobility: Supine to Sit: Min A with HOB elevated, to L side of bed, mod cues for log rolling. Increased time and effort Sit to Supine: Same Boost up in bed: with max Ax2 using chux. Transfers: Sit to Stand: 1x with CGA and FWW from EOB, 2x with min Ax2 and FWW from visitor chair min cues forhand placement. Stand to Sit: CGA with FWW, w/ fair eccentric Bed to Chair: CGA with FWW Gait: Distance: 10ft + 10ft, required one seated rest break Device used: FWW, chair follow Level of assist: CGA -min A Gait mechanics: decreased step length and height, forward flexed posture, narrow CANDY, slow pace, mod cues for posture but pt unable to stand upright due to increased low back pain and sequencing. Stairs: NA Balance: Sitting Static: fair at EOB w/o support Sitting Dynamic: fair Standing Static: fair w/ FWW Standing Dynamic / Gait: fair - w/ FWW, narrow CANDY Education: patient has been educated on Bed mobility, Transfers, Assistive device/technique, Stairs, Breathing exercises, Positioning, Safety , Precautions/protocol, Gait , Activity pacing/Energy conservation, Role of therapy, Balance, Discharge planning, and home management and needs reinforcement. Pt left reclined in bed with call scott in reach, all needs met, bed alarm on, following visit. RN updated pt status. Assessment: Klever Holguin was seen today for physical therapy treatment session for continuationof POC. Pt tolerated PT session fairly. Pt lethargic initially but awakens with transition to upright with bed features. Today's session focused on functional mobility, and increase activity tolerance. Pt able to ambulate short distance in hallway with FWW and CGA. Pt limited d/t decreased activitytolerance and pain in low back and fatigues quickly. Pt required max encouragement to participate in physical therapy and pt education provided about the importance of mobilizing in order to achieve his goal of walking. Pt requires several cues throughout tx session for AD management, gait, and safety. Recommend patient discharge to SNF when medically appropriate. Pt will benefit from ongoing therapeutic interventions to achieve therapy goals, while promoting safety and independence with mobility. Discharge Recommendations: Based on the current findings, retirement facility when medically ready for hospital discharge. Consult Recommendations: No other consults recommended at this time. Equipment needs: Anticipated Equipment Needs at Discharge (PT): to be determined. Goals: To be achieved by 01/25/23: revised on 12/23/22 Pt. to demonstrate knowledge of safety limitations and precautions and will appropriately request assistance for functional activities and to mobilize. Pt. to demonstrate understanding of importance and performance of deep breath and cough exercises using splinting pillow Pt. to perform bed mobility w/ S using side rail Pt. to perform sit><stand transfers w S using a front wheeled walker. Pt. to ambulate 50 feet with supervision using a a front wheeled walker. Pt will propel w/c using arms and legs w/ S as alternative exercise and mobility Family or caregiver to demonstrate understanding of therapeutic interventions to support the care of the patient. Pt will perform appropriate exs, ADL tasks, mobilize and ambulate with tolerable level of pain and stable vital signs Plan: Therapy Frequency (PT): 2-4 times/wk for therapy including bed mobility training, gait training, home exercise program, patient/family education, postural re-education, range of motion, stair training, strengthening, transfer training, and home management and DC Planning . Patient/family understand and agree with plan as stated above. Total Minutes, Physical Therapy: 48 ([id number]) TAx3 Jeremy Preston BertholdSWATHI Pager: [phone] Physical Therapy Inpatient Rehabilitation Department * Luda Smith RN - 12/23/2022 4:44 AM EDT OUTCOME EVALUATION NOTE: OUTCOME SUMMARY: Patient AOx4, VSS on RA. Denies nausea/vomiting, CP, SOB. Pain controlled w/ scheduled and PRN medications, see SEP. Wound to R eyebrow EMRE. Patient voiding to urinal in bed. LBM 12/21. Patient sleeping in between care. PLAN MOVING FORWARD: Pain management Mobilize D/C planning INDIVIDUALIZED FALL PREVENTION INTERVENTIONS: Patient-specific fall risk factors per assessment: [current deficits]: Hx of falls, impaired mobility, hospital environment, Assistance [level of assistance required for transfers and ambulation]: SBA FWW Supervision [direct monitoring required during toileting and ADLs]: Eyes on, hands on Surveillance [continuous indirect monitoring]: Masimo, bed alarm * Cassie Nloen OT - 12/22/2022 3:00 PM EDT Occupational Therapy Treatment Note Treatment Number OT: 3 Patient Dx: Klever Holguin is a 77 y.o. male PMH of seizures and HTN, originally admitted to OSH after falling from a ladder on 11/30/22 and was discharged with a spleen injury. He re-presented to OSH following ground level fall and found to be COVID +. [place] [facility] [place] for further care for the following injuries: Traumatic Injuries: Injury Intervention Follow-up SPINE: -Right L3 and L4 and left L5 transverse process fractures -Fractures of the T1-T3 vertebral bodies ORTHO SPINE: 12/14 SIGNED OFF -Activity: activity as tolerated; no bending, twisting, or lifting >5 lbs -Imaging needed: AP Lateral Cervical and Cervicothoracic Images. Goal is to see T1,2,3 ORTHO SPINE: -2-4 weeks in orthopaedic spine clinic with repeat XRs prior to appointment PULM: -Nondisplaced right second through eighth rib fractures and left fourth through seventh rib fractures TRAUMA: -Pulmonary Toilet -IS 10x/hr -Aerobika -Pain control TRAUMA: -Follow up in 10-14 days post injury 12/24-12/28 with repeat CXR (PA and Lateral views) ABD: -Grade 3 splenic injury with new subcapsular hematoma component involving greater than 50% of surface area. Lacerations measuring up to 5 cm. No active Extravasation. -Moderate hemoperitoneum predominantly within the pelvis TRAUMA: -INTERVENTIONAL RADIOLOGY: 12/15 -12/15/22 Splenic angiogram w/ embolization TRAUMA: -TBD ORTHO/EXTR: -Equivocal nondisplaced left sacral alar fracture ORTHO: 12/15 SIGNED OFF -Activity: AAT with walker -DVT prophylaxis: per primary, rec hold for 72 hours -Imaging needed: post mob ap/inlet/outlet -Follow-up: 2 weeks with x-rays inlet/outlet/AP ORTHO: -Follow-up: 2 weeks with x-rays inlet/outlet/AP SKIN: -Arrived with sutures placed to right eyebrow TRAUMA: -Remove sutures on 12/16 (Completed) TRAUMA: -Follow up with PCP Social History: Patient lives with a christianne and his and another christianne Home Setup: multi lvl home, 5 TERE B handrail but can't reach both, sunken living room with 2 steps,kitchen and living room on same lvl, standard garcia size bed, stall shower DME: FWW, cane Baseline ADL/Mobility: Independent ADLs, Assist with IADLs, drives for groceries, manages own medications using pill box, 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 Ambulates both with use of a RW andcane. Precautions/Special Considerations: Code Limitations, Fall Risk, High Skin Breakdown, NANWALEK, spine precautions (No bending, no lifting > 5 lbs, no twisting) log roll out of bed, BLE WBAT with RW 24 Hour Events: (Per MD note) -Afebrile, vital signs stable overnight -Multiple, large, foul smelling bowel movements -Ensure shakes added for increased protein intake -WBC 9.3 (10.8) S: You are not going away are you? You are persistent O: Patient seen for skilled OT treatment, and demonstrated the following: Self-care: Bathing: Washed face with supervision. Deferred further bathing tasks despite max encouragement Dressing: OT assisted with changing out his kristie while seated EOB. OT offered pants, T-shirt, newsocks, however, patient deferred Functional Mobility: Supine to sit: Min A w verbal cues for body mechanics log rolling to L Sit to stand: Completed x 2 with CGA from EOB and Min A from bedside chair Ambulation: CGA w FWW (pt able to walk ~25ft around the bed and back with no LOB noted). Slow, shuffling gait Stand to sit: Close Supervision w FWW and verbal cues for hand placement Sit to supine: Min A Cognition: Behavior / Mood: fatigued, required max encouragement to participate Alert and oriented to: person, place, time, and situation Follows commands: 2 step, 100% of the time with increased time Attention: WFL Safety awareness: decreased insight into deficits Vitals: WFL Pain: Denies Education: Pt education ongoing regarding: Role of occupational therapy/rehabilitation, Transfers, Assistive device/technique, ADL, Positioning, Safety, Precautions/Protocol, Functional Mobility, Balance, Recommendations, and Discharge planning. Staff Communication: Patient status, treatment, and mobility recommendations discussed with nursing/other staff. ASSESSMENT: Patient was seen for an OT session per POC. Patient quite fatigued upon OT arrival requiring max encouragement to participate. At this time, he demonstrates the ability to transfer/ambulate with CGA/Min A and support of a RW. He will continue to require assist for all LB ADL tasks. He will continue to benefit from a rehab stay to increase independence. Pt will benefit from ongoing therapeutic interventions to achieve pt's and therapy goals Equipment needs at discharge: to be determined Anticipated Discharge Disposition: swing bed rehabilitation facility, shelter facility Daily schedule / Staff Recommendations: Utilize upright chair position using bed features or transfer to recliner chair as appropriate Ambulate as tolerated CGA w FWW Encourage participation in ADL's by providing set up A on tray table and physical assist only as needed Encourage OOB for all meals Occupational Therapy Goals: To be achieved by 12/30/22 Pt to be Mod I with LB dressing Pt to be Mod I with LB bathing PROGRESSING Pt to be Mod I with toileting routine and toilet transfer w LRAD PROGRESSING Pt to complete 3 grooming tasks at sink while standing Pt will ambulate functional household distances w LRAD Mod I PROGRESSING Therapy Frequency (OT): 2-4 times/wk Total Minutes, Occupational Therapy: 43 (2:10-2:53) Pager: [phone] CASSIE NOLEN, RUBI 12/22/2022 Occupational Therapy Rehabilitation Department * Ford Bowie MD - 12/22/2022 9:11 AM EDT Trauma Daily Progress Note ID/Mechanism of injury: In review of his chart and notes from outside hospital, [facility]. Mr. Holguin fell from a ladder on 11/30, at which time he was admitted to [facility] and subsequently discharged. Small splenic contusion noted at that time. Re- presented on 12/08 following GLF with foreheadlaceration (s/p suture repair) and high grade splenic laceration. Found to be COVID+ on that presentation. In reading [facility]'s notes there seems to have been some confusion around how best to proceed with management of his splenic injury. He had been admitted there on the Hospital Medicine service with Surgery consultation. He initially refused intervention and there was discussion of transitioning him tocomfort care. The Palliative Care service was consulted at [facility]. It is unclear from the documentation what prompted changed. Will speak with his surrogate decision maker and step-daughter, Maria Esther, in the morning. Though he has been stable at the OSH for several days without intervention he has a high grade injury. Will discuss with IR in the morning, with the intention to embolize to prevent further progression. ID was curbside re COVID-19 management as he was on Paxlovid at [facility]; unavailable inpatient here so will start Remdesivir. 24 Hour Events: -Afebrile, vital signs stable overnight -Multiple, large, foul smelling bowel movements -Ensure shakes added for increased protein intake -WBC 9.3 (10.8) Vital Signs: VITALS (24hr Range): Temp Temp: [36.5 ??C (97.7 ??F)-37.3 ??C (99.1 ??F)] , HR Heart Rate: [73-76] , BP BP: (100-137)/(53-78) , RR Resp: [16-18] , SpO2 SpO2: [92 %-96 %] Physical Exam: GENERAL: Alert, awake, in no apparent distress, hard of hearing- laying in bed SKIN: Right eyebrow laceration healing well, stitches out HEENT: Laceration above right eyebrow healing with sutures removed, dressing clean, no bleeding NECK: Trachea midline, no edema CHEST/PULMONARY: Breathing comfortably on room air, no use of accessory muscles CARDIAC: Regular rate and rhythm, no murmurs, rubs, gallops appreciated GASTROINTESTINAL: Soft, non tender, non distended EXTREMITIES: Normal ROM all 4 extremities, 2+ pulses throughout NEURO: AAOx3, very hard of hearing Labs: Recent Labs 12/22/22 0359 WBC 9.3 HGB 9.9* HCT 30.0* PLATELET 474* Recent Labs 12/21/22 0541 12/20/22 1137 NA 135 134* K 3.6 3.8 CL 99 99 CO2 28 27 BUN 10 13 CREATININE 0.46* 0.50* GLUCOSE 102 126 CALCIUM 8.3* 8.2* MAGNESIUM 0.76 0.87 PHOS 2.7 2.2* Microbiology: -None New Imaging: -None Procedures: -12/15: Splenic arteriography with emobolization with Amplatz plugs, two coils, and Gelfoam pledgets. Assessment: Klever Holguin is a 77 y.o. Male with PMH of seizures and HTN, admitted to the traumaservice for the management of the below injuries and medical conditions. Plan: -Continue to promote PO intake, ensure shakes for protein -Remains medically ready for discharge. PT/OT recommending swing bed, referrals placed Traumatic Injuries: Injury Intervention Follow-up SPINE: -Right L3 and L4 and left L5 transverse process fractures -Fractures of the T1-T3 vertebral bodies ORTHO SPINE: 12/14 SIGNED OFF -Activity: activity as tolerated; no bending, twisting, or lifting >5 lbs -Imaging needed: AP Lateral Cervical and Cervicothoracic Images. Goal is to see T1,2,3 ORTHO SPINE: -2-4 weeks in orthopaedic spine clinic with repeat XRs prior to appointment PULM: -Nondisplaced right second through eighth rib fractures and left fourth through seventh rib fractures TRAUMA: -Pulmonary Toilet -IS 10x/hr -Aerobika -Pain control TRAUMA: -Follow up in 10-14 days post injury 12/24-12/28 with repeat CXR (PA and Lateral views) ABD: -Grade 3 splenic injury with new subcapsular hematoma component involving greater than 50% of surface area. Lacerations measuring up to 5 cm. No active Extravasation. -Moderate hemoperitoneum predominantly within the pelvis TRAUMA: -INTERVENTIONAL RADIOLOGY: 12/15 -12/15/22 Splenic angiogram w/ embolization TRAUMA: -TBD ORTHO/EXTR: -Equivocal nondisplaced left sacral alar fracture ORTHO: 12/15 SIGNED OFF -Activity: AAT with walker -DVT prophylaxis: per primary, rec hold for 72 hours -Imaging needed: post mob ap/inlet/outlet -Follow-up: 2 weeks with x-rays inlet/outlet/AP ORTHO: -Follow-up: 2 weeks with x-rays inlet/outlet/AP SKIN: -Arrived with sutures placed to right eyebrow TRAUMA: -Remove sutures on 12/16 (Completed) TRAUMA: -Follow up with PCP Acute in hospital issues: Acute pain -Tylenol 650 q6hr PRN Bowel Regimen -Pericolace BID -Miralax QD PRN -Bisacodyl Suppository PRN -LBM: 12/21 (per patient, one BM every 4-5 days) Severe Malnutrition: -Patient remains with poor PO intake -Nutrition consult, recommending dysphagia soft diet with snack throughout the day -Continue to encourage PO intake, ensure shakes added Resolved in hospital issues: -COVID positive Chronic health conditions: Essential tremor: -Restart home Propranolol 120mg daily -Restart home Primidone 300mg q8h Migraines Obstructive sleep apnea Diet: Dysphagia Soft Diet Activity status: Activity As Tolerated Spine status: Orthopedics DVT PPX: SCDs, SQ Lovenox BID GI PPX: Not indicated, tolerating diet Lines/Tubes/Drains: PIV Dispo: TBD Status: Floor Incidental Findings: -Focal anterior bladder wall thickening. Direct visualization is recommended to exclude malignancy [] Incidental Findings Form Completed AMINTA Brice 12/22/2022 Trauma pager [phone] Acute Care Surgery Attending Addendum: I have seen this patient and agree with the above note with the following additions and/or modifications. Sitting up in bed eating dinner. Blood pressure betterand denies any dizziness today. Asking to go home however OT worked with him today and continue to support SNF versus swing bed. * Zaira Forbes RN - 12/22/2022 5:09 AM EDT OUTCOME EVALUATION NOTE: OUTCOME SUMMARY: Patient AOx4, VSS on RA. Denies nausea/vomiting, CP, SOB, N/T. Lung sounds course throughout. Pain controlled w/ scheduled medications, see SEP. Dressing to groin CDI. Laceation to R eyebrow EMRE. Patient voiding to urinal, LBM 12/21. Patient resting in between care. No further changes at this time. Will continue to monitor. PLAN MOVING FORWARD: Increase PO intake Pain management Mobilization PT/OT D/C planning INDIVIDUALIZED FALL PREVENTION INTERVENTIONS: Patient is currently a high risk to Fall. Patient educated on bed/chair alarm, demonstrates proper use of call scott and verbalizes understanding of fall preventions implemented. Patient-specific fall risk factors per assessment: [current deficits]: hospital environment, medication, IV lines, pain, general weakness Assistance [level of assistance required for transfers and ambulation]: 1A w/ FWW Supervision [direct monitoring required during toileting and ADLs]: eyes on, hands on Surveillance [continuous indirect monitoring]: Masimo, bed alarm, room near nurses station, nurse knowledge exchange Zaira Forbes RN * Ford Bowie MD - 12/21/2022 9:07 AM EDT Trauma Daily Progress Note ID/Mechanism of injury: In review of his chart and notes from outside hospital, [facility]. Mr. Holguin fell from a ladder on 11/30, at which time he was admitted to [facility] and subsequently discharged. Small splenic contusion noted at that time. Re- presented on 12/08 following GLF with foreheadlaceration (s/p suture repair) and high grade splenic laceration. Found to be COVID+ on that presentation. In reading [facility]'s notes there seems to have been some confusion around how best to proceed with management of his splenic injury. He had been admitted there on the Hospital Medicine service with Surgery consultation. He initially refused intervention and there was discussion of transitioning him tocomfort care. The Palliative Care service was consulted at [facility]. It is unclear from the documentation what prompted changed. Will speak with his surrogate decision maker and step-daughter, Maria Esther, in the morning. Though he has been stable at the OSH for several days without intervention he has a high grade injury. Will discuss with IR in the morning, with the intention to embolize to prevent further progression. ID was curbside re COVID-19 management as he was on Paxlovid at [facility]; unavailable inpatient here so will start Remdesivir. 24 Hour Events: -Afebrile, vital signs stable overnight -Hypotensive to 85/52 yesterday early evening. Asymptomatic, responded well to 500cc bolus -Intermittently refusing bowel medications Vital Signs: VITALS (24hr Range): Temp Temp: [36.6 ??C (97.9 ??F)-37.1 ??C (98.8 ??F)] , HR Heart Rate: [63-73] , BP BP: (85-121)/(52-74) , RR Resp: [18] , SpO2 SpO2: [93 %-96 %] Physical Exam: GENERAL: Alert, awake, in no apparent distress, hard of hearing- laying in bed SKIN: Right eyebrow laceration healing well, stitches out HEENT: Laceration above right eyebrow healing with sutures removed, dressing clean, no bleeding NECK: Trachea midline, no edema CHEST/PULMONARY: Breathing comfortably on room air, no use of accessory muscles CARDIAC: Regular rate and rhythm, no murmurs, rubs, gallops appreciated GASTROINTESTINAL: Soft, non tender, non distended EXTREMITIES: Normal ROM all 4 extremities, 2+ pulses throughout NEURO: AAOx3, very hard of hearing Labs: Recent Labs 12/19/22 0346 WBC 10.8* HGB 9.6* HCT 29.0* PLATELET 460* Recent Labs 12/21/22 0541 12/20/22 1137 12/19/22 0346 NA 135 134* 133* K 3.6 3.8 3.5 CL 99 99 98 CO2 28 27 24 BUN 10 13 13 CREATININE 0.46* 0.50* 0.51* GLUCOSE 102 126 65 CALCIUM 8.3* 8.2* 8.1* MAGNESIUM 0.76 0.87 -- PHOS 2.7 2.2* -- Microbiology: -None New Imaging: -None Procedures: -12/15: Splenic arteriography with emobolization with Amplatz plugs, two coils, and Gelfoam pledgets. Assessment: Klever Hloguin is a 77 y.o. Male with PMH of seizures and HTN, admitted to the traumaservice for the management of the below injuries and medical conditions. Plan: -Patient remains with poor PO intake, continue to encourage -Last BM 3 days ago. Per patient, usually has one BM every 4-5 days -Remains medically ready. PT/OT recommending swing bed, referrals placed Traumatic Injuries: Injury Intervention Follow-up SPINE: -Right L3 and L4 and left L5 transverse process fractures -Fractures of the T1-T3 vertebral bodies ORTHO SPINE: 12/14 SIGNED OFF -Activity: activity as tolerated; no bending, twisting, or lifting >5 lbs -Imaging needed: AP Lateral Cervical and Cervicothoracic Images. Goal is to see T1,2,3 ORTHO SPINE: -2-4 weeks in orthopaedic spine clinic with repeat XRs prior to appointment PULM: -Nondisplaced right second through eighth rib fractures and left fourth through seventh rib fractures TRAUMA: -Pulmonary Toilet -IS 10x/hr -Aerobika -Pain control TRAUMA: -Follow up in 10-14 days post injury 12/24-12/28 with repeat CXR (PA and Lateral views) ABD: -Grade 3 splenic injury with new subcapsular hematoma component involving greater than 50% of surface area. Lacerations measuring up to 5 cm. No active Extravasation. -Moderate hemoperitoneum predominantly within the pelvis TRAUMA: -INTERVENTIONAL RADIOLOGY: 12/15 -12/15/22 Splenic angiogram w/ embolization TRAUMA: -TBD ORTHO/EXTR: -Equivocal nondisplaced left sacral alar fracture ORTHO: 12/15 SIGNED OFF -Activity: AAT with walker -DVT prophylaxis: per primary, rec hold for 72 hours -Imaging needed: post mob ap/inlet/outlet -Follow-up: 2 weeks with x-rays inlet/outlet/AP ORTHO: -Follow-up: 2 weeks with x-rays inlet/outlet/AP SKIN: -Arrived with sutures placed to right eyebrow TRAUMA: -Remove sutures on 12/16 (Completed) TRAUMA: -Follow up with PCP Acute in hospital issues: Acute pain -Tylenol 650 q6hr PRN Bowel Regimen -Pericolace BID -Miralax QD PRN -Bisacodyl Suppository PRN -LBM: 12/18 (per patient, one BM every 4-5 days) Severe Malnutrition: -Patient remains with poor PO intake -Nutrition consult, recommending dysphagia soft diet with snack throughout the day -Continue to encourage PO intake, ensure shakes added Resolved in hospital issues: -COVID positive Chronic health conditions: Essential tremor: -Restart home Propranolol 120mg daily -Restart home Primidone 300mg q8h Migraines Obstructive sleep apnea Diet: Dysphagia Soft Diet Activity status: Activity As Tolerated Spine status: Orthopedics DVT PPX: SCDs, SQ Lovenox BID GI PPX: Not indicated, tolerating diet Lines/Tubes/Drains: PIV Dispo: TBD Status: Floor Incidental Findings: -Focal anterior bladder wall thickening. Direct visualization is recommended to exclude malignancy [] Incidental Findings Form Completed AMINTA Brice 12/21/2022 Trauma pager [phone] Acute Care Surgery Attending Addendum: I have seen this patient and agree with the above note with the following additions and/or modifications. Hypotension yesterday believed secondary to hypovolemia given low oral intake. Improved after IV fluid bolus. Encourage more frequent po intake throughoutthe day. Needs SNF at discharge. * Ave Brock RN - 12/20/2022 5:47 PM EDT OUTCOME EVALUATION NOTE: OUTCOME SUMMARY: A/O x4. Blood pressure 85/51 at 1600. 500ml LR bolus given, BP post bolus 103/59. All other VSS on RA. Endorsing pain to lower back. Pain well controlled w/ scheduled and prn medications per SEP. Worked with PT today. Endorsing poor appetite r/t feeling bloated. LBM 12/15. Pericoloace given, pt. Refused Mirilax. Education provided. Low urine output this shift. Resting/sleeping between care. PLAN MOVING FORWARD: Pain management I/Os PT/OT D/c planning INDIVIDUALIZED FALL PREVENTION INTERVENTIONS: Patient-specific fall risk factors per assessment: [current deficits]: recent falls, hospital setting, lines/devices, generalized weakness, impaired mobility Assistance [level of assistance required for transfers and ambulation]: SBA fww Supervision [direct monitoring required during toileting and ADLs]: eyes on, arms reach Surveillance [continuous indirect monitoring]: masimo, bed alarm Patient-specific fall prevention interventions for sensory deficits provided, if applicable: [X] No CARE PLAN GOAL OUTCOME EVALUATION: * Ngoc Norris SLP - 12/20/2022 4:16 PM EDT Images from the original note were not included. Speech-Language Pathology Contact Note Total Treatment Time: 5 min. tx Total Timed Code Treatment: 0 min. Pt refusing all but a sip of water due to bloating. Says he's eaten plenty today though RN says he has not eaten much at all. Unable to perform full diet check due to patients disinterest in eating at this time. Ngoc Norris, CCC/STEEL POURER HELPER She / her/ hers Speech-Language Pathologist Inpatient/ Outpatient Rehabilitation Services Pager [phone] [facility] Good Teacher * Ford Bowie MD - 12/20/2022 1:17 PM EDT Trauma Daily Progress Note ID/Mechanism of injury: In review of his chart and notes from outside hospital, [facility]. Mr. Holguin fell from a ladder on 11/30, at which time he was admitted to [facility] and subsequently discharged. Small splenic contusion noted at that time. Re- presented on 12/08 following GLF with foreheadlaceration (s/p suture repair) and high grade splenic laceration. Found to be COVID+ on that presentation. In reading [facility]'s notes there seems to have been some confusion around how best to proceed with management of his splenic injury. He had been admitted there on the Hospital Medicine service with Surgery consultation. He initially refused intervention and there was discussion of transitioning him tocomfort care. The Palliative Care service was consulted at [facility]. It is unclear from the documentation what prompted changed. Will speak with his surrogate decision maker and step-daughter, Maria Esther, in the morning. Though he has been stable at the OSH for several days without intervention he has a high grade injury. Will discuss with IR in the morning, with the intention to embolize to prevent further progression. ID was curbside re COVID-19 management as he was on Paxlovid at [facility]; unavailable inpatient here so will start Remdesivir. 24 Hour Events: -Afebrile, vital signs stable overnight -Refusing bowel medications, last BM 12/15 Vital Signs: VITALS (24hr Range): Temp Temp: [36.5 ??C (97.7 ??F)-37 ??C (98.6 ??F)] , HR Heart Rate: [63-64] , BP BP: (95-128)/(59-73) , RR Resp: [18] , SpO2 SpO2: [93 %-96 %] Physical Exam: GENERAL: Alert, awake, in no apparent distress, hard of hearing- laying in bed SKIN: No lacerations, abrasion or contusions on complete anterior skin exam HEENT: Laceration above right eyebrow healing with sutures removed, dressing clean, no bleeding NECK: Trachea midline, no edema CHEST/PULMONARY: Breathing comfortably on room air, no use of accessory muscles CARDIAC: Regular rate and rhythm, no murmurs, rubs, gallops appreciated GASTROINTESTINAL: Soft, non tender, non distended EXTREMITIES: Normal ROM all 4 extremities, 2+ pulses throughout NEURO: AAOx3, very hard of hearing Labs: Recent Labs 12/19/22 0346 12/18/22 0336 WBC 10.8* 12.5* HGB 9.6* 9.8* HCT 29.0* 29.5* PLATELET 460* 424* Recent Labs 12/20/22 1137 12/19/22 0346 12/18/22 0336 NA 134* 133* 133* K 3.8 3.5 3.7 CL 99 98 99 CO2 27 24 23 BUN 13 13 14 CREATININE 0.50* 0.51* 0.54* GLUCOSE 126 65 73 CALCIUM 8.2* 8.1* 8.2* MAGNESIUM 0.87 -- -- PHOS 2.2* -- -- Microbiology: -None New Imaging: -None Procedures: -12/15: Splenic arteriography with emobolization with Amplatz plugs, two coils, and Gelfoam pledgets. Assessment: Klever Holguin is a 77 y.o. Male with PMH of seizures and HTN, admitted to the traumaservice for the management of the below injuries and medical conditions. Plan: -No BM since 12/15. Will encourage taking scheduled medications. Will try suppository if no BM by evening -Remains medically ready. PT/OT recommending swing bed, referrals placed Traumatic Injuries: Injury Intervention Follow-up SPINE: -Right L3 and L4 and left L5 transverse process fractures -Fractures of the T1-T3 vertebral bodies ORTHO SPINE: 12/14 SIGNED OFF -Activity: activity as tolerated; no bending, twisting, or lifting >5 lbs -Imaging needed: AP Lateral Cervical and Cervicothoracic Images. Goal is to see T1,2,3. ORTHO SPINE: -2-4 weeks in orthopaedic spine clinic with repeat XRs prior to appointment PULM: -Nondisplaced right second through eighth rib fractures and left fourth through seventh rib fractures TRAUMA: -Pulmonary Toilet -IS 10x/hr -Aerobika -Pain control TRAUMA: -Follow up in 10-14 days post injury 12/24-12/28 with repeat CXR (PA and Lateral views) ABD: -Grade 3 splenic injury with new subcapsular hematoma component involving greater than 50% of surface area. Lacerations measuring up to 5 cm. No active Extravasation. -Moderate hemoperitoneum predominantly within the pelvis TRAUMA: -INTERVENTIONAL RADIOLOGY: 12/15 -12/15/22 Splenic angiogram w/ embolization TRAUMA: -TBD ORTHO/EXTR: -Equivocal nondisplaced left sacral alar fracture ORTHO: 12/15 SIGNED OFF -Activity: AAT with walker -DVT prophylaxis: per primary, rec hold for 72 hours -Imaging needed: post mob ap/inlet/outlet -Follow-up: 2 weeks with x-rays inlet/outlet/AP ORTHO: -Follow-up: 2 weeks with x-rays inlet/outlet/AP SKIN: -Arrived with sutures placed to right eyebrow TRAUMA: -Remove sutures on 12/16 (Completed) TRAUMA: -Follow up with PCP Acute in hospital issues: Acute pain -Tylenol 650 q6hr SCHED Bowel Regimen -Pericolace BID -Miralax QD PRN -Bisacodyl Suppository PRN -LBM: 12/15 Severe Malnutrition: -Patient remains with poor PO intake -Nutrition consult, recommending dysphagia soft diet with snack throughout the day Resolved in hospital issues: -COVID positive Chronic health conditions: Essential tremor: -Restart home Propranolol 120mg daily -Restart home Primidone 300mg q8h Migraines Obstructive sleep apnea Diet: Dysphagia Soft Diet Activity status: Activity As Tolerated Spine status: Orthopedics DVT PPX: SCDs, SQ Lovenox BID GI PPX: Not indicated, tolerating diet Lines/Tubes/Drains: PIV x2 Dispo: TBD Status: Floor Incidental Findings: -Focal anterior bladder wall thickening. Direct visualization is recommended to exclude malignancy [] Incidental Findings Form Completed AMINTA Brice 12/20/2022 Trauma pager [phone] Acute Care Surgery Attending Addendum: I have seen this patient and agree with the above note with the following additions and/or modifications. Ambulated in the david with assistance but appeared tired after a short distance and needed to rest. Encourage better po intake. Working on SNF or rehab placement. * Altaf Krause - 12/20/2022 11:23 AM EDT Nutrition Initial Note Klever Holguin is a 77 y.o. male with PMH of seizures and HTN, originally admitted to OSH after falling from a ladder on 11/30/22 and was discharged with a spleen injury. He re-presented to OSH following ground level fall and found to be COVID +. [place] [facility] [place] for further care. Reason for Assessment: Other (see comments) (Poor PO) Nutrition Recommendations: Continue Dysphagia Soft diet per STEEL POURER HELPER (12/16) --Magic Cup TID --Snacks: Cottage cheese, yogurt Monitor and encourage po intake --Please record % intake in flowsheets Optimize bowel reg --Last recorded BM 12/15 Please obtain updated weight --Current weight is reported I was able to discuss plan with provider Surgery - Trauma Pager #[phone] . Current Nutrition Regimen: Active Orders Diet Dysphagia Soft Diet Frequency: Effective Now Number of Occurrences: Until Specified Assessment: Lab Results Component Value Date NA 133 (L) 12/19/2022 K 3.5 12/19/2022 CL 98 12/19/2022 CO2 24 12/19/2022 BUN 13 12/19/2022 CREATININE 0.51 (L) 12/19/2022 ESTGFR 106 12/19/2022 MAGNESIUM 0.64 (L) 12/17/2022 CALCIUM 8.1 (L) 12/19/2022 PHOS 2.6 12/17/2022 AST 38 12/13/2022 ALT 16 12/13/2022 ALKPHOS 122 12/13/2022 BILITOT 0.8 12/13/2022 No results found for: POCGLU Patient Lines/Drains/Airways Status Active Nutritional LDAs Name Placement date Placement time Site Days Peripheral IV Line - Single Lumen 12/13/222054 18 gauge 12/13/222054 -- 7 Peripheral IV Line - Single Lumen 12/13/222055 20 gauge 12/13/222055 -- 7 Oxygen Therapy / Airway Device: CPAP Shift Pressure Injury Prevention Occiput: No Injury Thoracic Spine: No Injury Sacral: No Injury Ischial - left: No Injury Ischial - right: No Injury Heel - left: No Injury Heel - right: No Injury Elbow - left: No Injury Elbow - right: No Injury Device Sites: O2 sat monitor, IV sites, Bi pap/C pap mask Other Sites: CPAP at night Last Bowel Movement: 12/15/22 Intake/Output Summary (Last 24 hours) at 12/20/2022 1123 Last data filed at 12/20/2022 0842 Gross per 24 hour Intake 600 ml Output 800 ml Net -200 ml Relevant medications: Pericolace, others noted. Anthropometrics: Admit Weight: 66.23 kg Estimated body mass index is 21.88 kg/m?? as calculated from the following: Height as of this encounter: 174 cm (5' 8.5). Weight as of this encounter: 66.2 kg (146 lb). Pryor Body Weight (IBW) (kg): 71.36 Wt Readings from Last 10 Encounters: 12/13/22 66.2 kg (146 lb) 09/12/20 66.3 kg (146 lb 3.2 oz) 08/01/20 61.6 kg (135 lb 14.4 oz) 04/25/15 81 kg (178 lb 9.6 oz) 01/16/11 93.4 kg (206 lb) Patient Vitals for the past 168 hrs: Weight 12/13/22 2101 66.2 kg (146 lb) Weight Source: Reported Estimated / Assessed Needs: Kcal / K - 1655 Kcal (20 Kcal/Kg - 25 Kcal/Kg) Estimated Protein Needs: 66.2 - 79 g (1.0 g/Kg - 1.2 g/Kg) Nutrition intake and intake history / interview: 12/20: Met with Klever at bedside. He reports that he has a good appetite, but does not like the foodthat he has been receiving. He notes that he has been receiving standard trays of items that he does not like and wants items not allowed on his diet like more fresh fruits. Offered trial of Ensure, pt reports that he has tried various supplement drinks before and does not like any of them. Pt agreeable to snacks and trial of Magic Cup. Will send daily menus to assist in the ordering of food preferences. Only recorded weight is reported, new weight requested from RN. Last recorded BM 12/15. Nutrition Focused Physical Exam: Performed (12/20/2022) Subcutaneous Fat Loss Orbital region: Severe Upper arm region (triceps/biceps): Moderate Thoracic and Lumbar regions (ribs, lower back, and maxillary line): Not assessed Lean Muscle Loss Methodist region (temporalis muscle): Severe Clavicle bone region (pectoralis major): Severe Dorsal hand (interosseous muscle): Not assessed Shoulder (deltoid): Severe Scapular bone region (latissimus dorsi, trapezius muscles): Not assessed Thigh region (quadriceps muscle): Not assessed Posterior calf region (gastrocnemius muscle): Mild Fluid Accumulation Fluid Accumulation: Not assessed Malnutrition Diagnosis: Identified: less than or equal to 50% of estimated energy requirement for greater than or equal to 5 days, Moderate Fat Loss, and Severe Lean Muscle Loss is consistent with Severe protein-calorie malnutrition in the setting of acute illness or injury (Checo, JPEN J Parenteral Enteral Nutr. 2011; 36(3): 273-83) Nutrition to continue to follow up while inpatient Thanks, Altaf Krause, Produce Buyer * Dianne Cruz, PT - 12/20/2022 10:00 AM EDT Physical Therapy Note Treatment Number PT: 3 Patient Profile: Klever Holguin is a 77 y.o. male PMH of seizures and HTN, originally admitted toO after falling from a ladder on 11/30/22 and was discharged with a spleen injury. He re-presentedto OSH following ground level fall and found to be COVID +. [place] [facility] [place] for further care for the following injuries: Traumatic Injuries: Injury Intervention Follow-up SPINE: -Right L3 and L4 and left L5 transverse process fractures -Fractures of the T1-T3 vertebral bodies ORTHO SPINE: 12/14 -Activity: activity as tolerated; no bending, twisting, or lifting >5 lbs -Imaging needed: AP Lateral Cervical and Cervicothoracic Images. Goal is to see T1,2,3. ORTHO SPINE: -2-4 weeks in orthopaedic spine clinic with repeat XRs prior to appointment PULM: -Nondisplaced right second through eighth rib fractures and left fourth through seventh rib fractures TRAUMA: -Pulmonary Toilet -IS 10x/hr -Aerobika -Pain control TRAUMA: -Follow up in 10-14 days post injury 12/24-12/28 with repeat CXR (PA and Lateral views) ABD: -Grade 3 splenic injury with new subcapsular hematoma component involving greater than 50% of surface area. Lacerations measuring up to 5 cm. No active Extravasation. -Moderate hemoperitoneum predominantly within the pelvis TRAUMA: -INTERVENTIONAL RADIOLOGY: 12/15 -12/15/22 Splenic angiogram w/ embolization TRAUMA: -TBD ORTHO/EXTR: -Equivocal nondisplaced left sacral alar fracture ORTHO: 12/16 -Activity: AAT with walker -DVT prophylaxis: per primary, rec hold for 72 hours -Imaging needed: post mob ap/inlet/outlet -Follow-up: 2 weeks with x-rays inlet/outlet/AP ORTHO: -Follow-up: 2 weeks with x-rays inlet/outlet/AP SKIN: -Arrived with sutures placed to right eyebrow TRAUMA: -Remove sutures on 12/16 (Completed) TRAUMA: -Follow up with PCP Patient with the following active problems: Past Medical History: Diagnosis Date History of migraines History of nephrolithiasis Obstructive sleep apnea Tremor, essential Ulnar neuropathy Past Surgical History: Procedure Laterality Date IR ARTERIOGRAM/EMBOLIZATION- SPLENIC 12/15/2022 IR Arteriogram/Embolization - Splenic Peter Munoz MD [facility] INTERVENTIONL RAD Interval History: per Trauma Surgery note 12/20 -Afebrile, vital signs stable overnight -Refusing bowel medications, last BM 12/15 Social History: Pt NANWALEK but was able to ascertain the following Home set-up: reports that he has a sunken living room w/o no hand holds for steps and reports 2 of 4 falls on those stairs Bathroom Set-up: master w/ stall shower, no shower chair Stairs: 5 to enter w/ b/l railings which cannot be reached simultaneously Baseline Mobility: indep but reports that he has people living with him who have helped him w/ IADLs (his dtr Maria Esther's co-workers) Equipment at home: standard walker w/o wheels Fall history: x 4 in the last year, 2 as above and 2 others on stairs w/ hand hold down into livingroom Precautions/Special Considerations: markedly NANWALEK, fall risk, h/o of Szs, pain in ribs and back, B/L, spinal precautions including log roll bed mobility Lines: PIV, Masimo Activity Orders: AAT with spinal precs Diet: dysphagia soft Mobility and Positioning Recommendations: Modified log roll for spine precs but challenging r/t multiple rib Fxs Pt. to utilize FWW and cga for ambulation and transfers with nursing. OOB up in chair for meals Encourage use of IS and deep/breathe and cough, using lung pillow to splint Subjective: I can't stand tall, it hurts my back Objective: Pt seen for Physical Therapy Treatment and demonstrated the following: Pain: Pt presents with some pain in low back when stand upright and chest areas Vital Signs: VSS on RA Mental Status: alert, oriented to person, place, and time Bed Mobility: Supine to Sit: Close supervision with HOB elevated ~30 degrees, to L side of bed, min cues for log rolling. Increased time and effort Sit to Supine: Same Boost up in bed: with max Ax2 using chux. Transfers: Sit to Stand: CGA with FWW from EOB and WC, not elevated, min cues for hand placement, performed 2x Stand to Sit: CGA with FWW, w/ fair eccentric Bed to Chair: N/A Gait: Distance: 36ft + 36ft , required one seated rest break due to pain and fatigues Device used: FWW, chair follow Level of assist: CGA Gait mechanics: decreased step length and height, forward flexed posture, narrow CANDY, slow pace, mod cues for posture but pt unable to stand upright due to increased low back pain. Stairs: NA Balance: Sitting Static: good at EOB w/o support Sitting Dynamic: fair Standing Static: fair w/ FWW Standing Dynamic / Gait: fair - w/ FWW, narrow CANDY Education: patient has been educated on Bed mobility, Transfers, Assistive device/technique, Stairs, Breathing exercises, Positioning, Safety , Precautions/protocol, Gait , Activity pacing/Energy conservation, Role of therapy, Balance, Discharge planning, and home management and needs reinforcement. Pt left reclined in bed with call scott in reach, all needs met, bed alarm on, following visit. RN updated pt status. Assessment: Klever Holguin was seen today for physical therapy treatment session for continuationof POC. Pt tolerated PT session fairly. Today's session focused on functional mobility, and increase activity tolerance. Pt able to ambulate in hallway ~72 ft total, required one seated rest break due to pain in low back and fatigues quickly. Pt required max encouragement to participate in physicaltherapy and pt education provided about the importance of mobilizing in order to achieve his goal of walking. Pt continues unable to cough to clear copious secretions in this session. RN made aware. He will benefit from skilled therapy services throughout hospitalization to promote safety, independence, and provide developmental support/caregiver education. Discharge Recommendations: Based on the current findings, retirement facility when medically ready for hospital discharge. Consult Recommendations: No other consults recommended at this time. Equipment needs: Anticipated Equipment Needs at Discharge (PT): to be determined. Goals: To be achieved by 01/25/23: revised on 12/23/22 Pt. to demonstrate knowledge of safety limitations and precautions and will appropriately request assistance for functional activities and to mobilize. Pt. to demonstrate understanding of importance and performance of deep breath and cough exercises using splinting pillow Pt. to perform bed mobility w/ S using side rail Pt. to perform sit><stand transfers w S using a front wheeled walker. Pt. to ambulate 50 feet with supervision using a a front wheeled walker. Pt will propel w/c using arms and legs w/ S as alternative exercise and mobility Family or caregiver to demonstrate understanding of therapeutic interventions to support the care of the patient. Pt will perform appropriate exs, ADL tasks, mobilize and ambulate with tolerable level of pain and stable vital signs Plan: Therapy Frequency (PT): 2-4 times/wk for therapy including bed mobility training, gait training, home exercise program, patient/family education, postural re-education, range of motion, stair training, strengthening, transfer training, and home management and DC Planning . Patient/family understand and agree with plan as stated above. Total Minutes, Physical Therapy: 35 ([id number]) Jeremy Ibarra PTA Pager: [phone] Physical Therapy Inpatient Rehabilitation Department * Naty Castillo RN - 12/19/2022 6:33 PM EDT OUTCOME EVALUATION NOTE: OUTCOME SUMMARY: No acute events this shift -Pt A&Ox4, pleasant and cooperative with care. -Complaints of pain to lower back and R rib area and L foot-scheduled tylenol given with good effect. Splinting pillow in place. B/L heels elevated on pillows - No complaints of SOB/YOUNGBLOOD- COVID precautions discontinued Tolerating RA. Pt declining nebulizers r/t nausea. +nonproductive congested cough. - R. Lac above eye; site CDI. - Voiding in urinal - LBM: 12/15/22 pt refusing bowel meds at this time. Tolerating meals - T&Rq 2 hours. - Masimo monitoring in place. VSSS. Fall safety precautions maintained. Bed alarm on for safety. Call scott within reach. Hourly rounding performed will CTM for changes. PLAN MOVING FORWARD: Pain Control Mobilize I&O monitoring D/c planning INDIVIDUALIZED FALL PREVENTION INTERVENTIONS: Patient-specific fall risk factors per assessment: [current deficits]: Hospital Environment, Pain, Impaired Mobility, COVID precautions Assistance [level of assistance required for transfers and ambulation]: x1 assist with FWW Supervision [direct monitoring required during toileting and ADLs]: Eyes on hands on per unit protocol Surveillance [continuous indirect monitoring]: Masimo, Patient Safety Rounding * Keagan Banks, OT - 12/19/2022 1:35 PM EDT Occupational Therapy Treatment Note Treatment Number OT: 2 Patient Profile: Klever Holguin is a 77 y.o. male PMH of seizures and HTN, originally admitted [facility] after falling from a ladder on 11/30/22 and was discharged with a spleen injury. He re-presentedto OSH following ground level fall and found to be COVID +. [place] [facility] [place] further care for the following injuries: Traumatic Injuries: Injury Intervention Follow-up SPINE: -Right L3 and L4 and left L5 transverse process fractures -Fractures of the T1-T3 vertebral bodies ORTHO SPINE: 12/14 -Activity: activity as tolerated; no bending, twisting, or lifting >5 lbs -Imaging needed: AP Lateral Cervical and Cervicothoracic Images. Goal is to see T1,2,3. ORTHO SPINE: -2-4 weeks in orthopaedic spine clinic with repeat XRs prior to appointment PULM: -Nondisplaced right second through eighth rib fractures and left fourth through seventh rib fractures TRAUMA: -Pulmonary Toilet -IS 10x/hr -Aerobika -Pain control TRAUMA: -Follow up in 10-14 days post injury 12/24-12/28 with repeat CXR (PA and Lateral views) ABD: -Grade 3 splenic injury with new subcapsular hematoma component involving greater than 50% of surface area. Lacerations measuring up to 5 cm. No active Extravasation. -Moderate hemoperitoneum predominantly within the pelvis TRAUMA: -INTERVENTIONAL RADIOLOGY: 12/15 -12/15/22 Splenic angiogram w/ embolization TRAUMA: -TBD ORTHO/EXTR: -Equivocal nondisplaced left sacral alar fracture ORTHO: 12/16 -Activity: AAT with walker -DVT prophylaxis: per primary, rec hold for 72 hours -Imaging needed: post mob ap/inlet/outlet -Follow-up: 2 weeks with x-rays inlet/outlet/AP ORTHO: -Follow-up: 2 weeks with x-rays inlet/outlet/AP SKIN: -Arrived with sutures placed to right eyebrow TRAUMA: -Remove sutures on 12/16 (Completed) TRAUMA: -Follow up with PCP Precautions/Special Considerations: Precautions/Special Considerations: Code Limitations, Fall Risk, High Skin Breakdown NANWALEK, spine precautions, log roll out of bed Interval History: -COVID precautions last night S: I'd like to get out this side since I get out of bed on this side. Then I'll walk around. O: Patient seen for skilled OT treatment, and demonstrated the following: Self-care: Bathing: Mod A (pt able to wash self with assistance for posterior hygiene to maintain spine precautions) Toileting: Pt attempted to have BM but unsuccessful. Transfer: CGA w FWW (pt able to walk over to bathroom from bedside ~12ft with no LOB noted, pt requiring verbal cues to maintain upright posture while sitting on toilet) Hygiene: Close supervision Functional Mobility: Supine to sit: Close Supervision w verbal cues for body mechanics log rolling to L Sit to stand: CGA w FWW and verbal cues for hand placement Ambulation: CGA w FWW (pt able to walk ~25ft to bathroom and back around bed with no LOB noted) Stand to sit: Close Supervision w FWW and verbal cues for hand placement Sit to supine CGA w verbla cues for body mechanics for log rolling to L side Cognition: Behavior / Mood: alert and cooperative Alert and oriented to: person, place, time, and situation Follows commands: 2 step Attention: WFL Safety awareness: decreased insight into deficits Vitals: EOB: 90/55, 74bpm, SpO2 94%, Standing: Pain: Pt reported sensitivity in L side where I had the surgery but no numerical value given Education: Pt/family/caregiver education ongoing regarding: Transfers, Assistive device/technique, Adaptive equipment training, ADL, Positioning, Safety, Precautions/Protocol, Functional Mobility, Balance, and Recommendations. Staff Communication: Patient status, treatment, and mobility recommendations discussed with nursing/other staff. ASSESSMENT: Pt seen for continuation of OT POC. Pt making gradual progress in goals but continues to require assistance for functional mobility tasks and ADLs the patient requiring verbal cues for maintaining spine precautions while engaged in ADLs.Pt requires increased time to complete ADL tasks and functional mobility. Pt educated on compensatory breathing strategies. Pt will benefit from ongoing therapeutic interventions to achieve pt's and therapy goals Equipment needs at discharge: None, to be determined Anticipated Discharge Disposition: swing bed rehabilitation facility, shelter facility Daily schedule / Staff Recommendations: Utilize upright chair position using bed features or transfer to recliner chair as appropriate Ambulate as tolerated CGA w FWW around room as pt is confined to room Encourage participation in ADL's by providing set up A on tray table and physical assist only as needed Occupational Therapy Goals: To be achieved by 12/30/22 Pt to be Mod I with LB dressing Pt to be Mod I with LB bathing PROGRESSING Pt to be Mod I with toileting routine and toilet transfer w LRAD PROGRESSING Pt to complete 3 grooming tasks at sink while standing Pt will ambulate functional household distances w LRAD Mod I PROGRESSING Therapy Frequency (OT): 2-4 times/wk Total Minutes, Occupational Therapy: 45 ([facility] X3 ([id number])) Pager: [phone] Keagan Banks OT 12/19/2022 Occupational Therapy Rehabilitation Department * Ford Bowie MD - 12/19/2022 11:23 AM EDT Trauma Daily Progress Note ID/Mechanism of injury: In review of his chart and notes from outside hospital, [facility]. Mr. Holguin fell from a ladder on 11/30, at which time he was admitted to [facility] and subsequently discharged. Small splenic contusion noted at that time. Re- presented on 12/08 following GLF with foreheadlaceration (s/p suture repair) and high grade splenic laceration. Found to be COVID+ on that presentation. In reading [facility]'s notes there seems to have been some confusion around how best to proceed with management of his splenic injury. He had been admitted there on the Hospital Medicine service with Surgery consultation. He initially refused intervention and there was discussion of transitioning him tocomfort care. The Palliative Care service was consulted at [facility]. It is unclear from the documentation what prompted changed. Will speak with his surrogate decision maker and step-daughter, Maria Esther, in the morning. Though he has been stable at the OSH for several days without intervention he has a high grade injury. Will discuss with IR in the morning, with the intention to embolize to prevent further progression. ID was curbside re COVID-19 management as he was on Paxlovid at [facility]; unavailable inpatient here so will start Remdesivir. 24 Hour Events: -Afebrile, vital signs stable overnight -COVID precautions last night -Hgb 9.6 (9.8) -WBC 10.8 (12.5) Vital Signs: VITALS (24hr Range): Temp Temp: [36.7 ??C (98.1 ??F)-37 ??C (98.6 ??F)] , HR Heart Rate: --, BP BP: (98-133)/(66-76) , RR Resp: [17-18] , SpO2 SpO2: [93 %-95 %] Physical Exam: GENERAL: Alert, awake, in no apparent distress, hard of hearing- laying in bed SKIN: No lacerations, abrasion or contusions on complete anterior skin exam HEENT: Laceration above right eyebrow healing with sutures removed, dressing clean, no bleeding NECK: Trachea midline, no edema CHEST/PULMONARY: Breathing comfortably on room air, no use of accessory muscles CARDIAC: Regular rate and rhythm, no murmurs, rubs, gallops appreciated GASTROINTESTINAL: Soft, non tender, non distended EXTREMITIES: Normal ROM all 4 extremities, 2+ pulses throughout NEURO: AAOx3, very hard of hearing Labs: Recent Labs 12/19/2234512/18/22 0336 12/17/22 0355 WBC 10.8* 12.5* 16.1* HGB 9.6* 9.8* 10.0* HCT 29.0* 29.5* 29.7* PLATELET 460* 424* 374* Recent Labs 12/19/22 0346 12/18/22 0336 12/17/22 0355 NA 133* 133* 131* K 3.5 3.7 3.9 CL 98 99 98 CO2 24 23 17* BUN 13 14 14 CREATININE 0.51* 0.54* 0.59* GLUCOSE 65 73 85 CALCIUM 8.1* 8.2* 8.3* MAGNESIUM -- -- 0.64* PHOS -- -- 2.6 Microbiology: -None New Imaging: -None Procedures: -12/15: Splenic arteriography with emobolization with Amplatz plugs, two coils, and Gelfoam pledgets. Assessment: Klever Holguin is a 77 y.o. Male with PMH of seizures and HTN, admitted to the traumaservice for the management of the below injuries and medical conditions. Plan: -Remains medically ready. PT/OT recommending swing bed, referrals placed Traumatic Injuries: Injury Intervention Follow-up SPINE: -Right L3 and L4 and left L5 transverse process fractures -Fractures of the T1-T3 vertebral bodies ORTHO SPINE: 12/14 SIGNED OFF -Activity: activity as tolerated; no bending, twisting, or lifting >5 lbs -Imaging needed: AP Lateral Cervical and Cervicothoracic Images. Goal is to see T1,2,3. ORTHO SPINE: -2-4 weeks in orthopaedic spine clinic with repeat XRs prior to appointment PULM: -Nondisplaced right second through eighth rib fractures and left fourth through seventh rib fractures TRAUMA: -Pulmonary Toilet -IS 10x/hr -Aerobika -Pain control TRAUMA: -Follow up in 10-14 days post injury 12/24-12/28 with repeat CXR (PA and Lateral views) ABD: -Grade 3 splenic injury with new subcapsular hematoma component involving greater than 50% of surface area. Lacerations measuring up to 5 cm. No active Extravasation. -Moderate hemoperitoneum predominantly within the pelvis TRAUMA: -INTERVENTIONAL RADIOLOGY: 12/15 -12/15/22 Splenic angiogram w/ embolization TRAUMA: -TBD ORTHO/EXTR: -Equivocal nondisplaced left sacral alar fracture ORTHO: 12/15 SIGNED OFF -Activity: AAT with walker -DVT prophylaxis: per primary, rec hold for 72 hours -Imaging needed: post mob ap/inlet/outlet -Follow-up: 2 weeks with x-rays inlet/outlet/AP ORTHO: -Follow-up: 2 weeks with x-rays inlet/outlet/AP SKIN: -Arrived with sutures placed to right eyebrow TRAUMA: -Remove sutures on 12/16 (Completed) TRAUMA: -Follow up with PCP Acute in hospital issues: Acute pain -Tylenol 650 q6hr SCHED Bowel Regimen -Pericolace BID -Miralax QD PRN -Bisacodyl Suppository PRN -LBM: 12/15 Resolved in hospital issues: -COVID positive Chronic health conditions: Essential tremor: -Restart home Propranolol 120mg daily -Restart home Primidone 300mg q8h Migraines Obstructive sleep apnea Diet: Dysphagia Soft Diet Activity status: Activity As Tolerated Spine status: Orthopedics DVT PPX: SCDs, SQ Lovenox BID GI PPX: Not indicated, tolerating diet Lines/Tubes/Drains: PIV x2 Dispo: TBD Status: Floor Incidental Findings: -Focal anterior bladder wall thickening. Direct visualization is recommended to exclude malignancy [] Incidental Findings Form Completed AMINTA Brice 12/19/2022 Trauma pager [phone] Acute Care Surgery Attending Addendum: I have seen this patient and agree with the above note with the following additions and/or modifications. Medically ready for discharge and seems more amenable to SNF. * Evelyn Desouza RN - 12/19/2022 4:33 AM EDT OUTCOME EVALUATION NOTE: OUTCOME SUMMARY: No acute events overnight. -Pt A&Ox4, pleasant and cooperative with care. -Complaints of pain to lower back and R rib area and L foot-scheduled tylenol given with good effect. Splinting pillow in place. B/L heels elevated on pillows - No complaints of SOB/YOUNGBLOOD- COVID precautions maintained and d/c at midnight on 12/19. Tolerating RA. CPAP on overnight with 2 lNC. Pt declining nebulizers r/t nausea. +nonproductive congested cough. - R. Lac above eye; site CDI. - Voiding in urinal - LBM: 12/15/22 pt refusing bowel meds at this time. Poor PO intake - T&Rq 2 hours. - Masimo monitoring in place. VSSS. Fall safety precautions maintained. Bed alarm on for safety. Call scott within reach. Hourly rounding performed will CTM for changes. PLAN MOVING FORWARD: Pain Control Mobilize I&O monitoring D/c planning INDIVIDUALIZED FALL PREVENTION INTERVENTIONS: Patient-specific fall risk factors per assessment: [current deficits]: Hospital Environment, Pain, Impaired Mobility, COVID precautions Assistance [level of assistance required for transfers and ambulation]: x1 assist with FWW Supervision [direct monitoring required during toileting and ADLs]: Eyes on hands on per unit protocol Surveillance [continuous indirect monitoring]: Masimo, Patient Safety Rounding * Cordelia Thurman RN - 12/19/2022 12:12 AM EDT #[id number] paged to d/c COVID precautions. Cordelia Thurman RN * Shola Zhang RN - 12/18/2022 12:42 PM EDTSummary: Plan of care OUTCOME EVALUATION NOTE: OUTCOME SUMMARY: Pt A&O x 4, VSS on RA. Pt voiding adequately into urinal. Pt's pain controlled with scheduled and PRN pain medication. Pt cooperative with care and resting between care. No adverse events this shift. PLAN MOVING FORWARD: Pain control Mobilize D/c planning INDIVIDUALIZED FALL PREVENTION: Patient is currently a high risk to Fall. Patient educated on bed/chair alarm, demonstrates proper use of call scott and verbalizes understanding of fall preventions implemented. Patient-specific fall risk factors per assessment: [current deficits]: IV Sites, Pain, Medications,Hospital Environment. Assistance [level of assistance required for transfers and ambulation]: SBA Supervision [direct monitoring required during toileting and ADLs]: Eyes on per unit protocol when OOB/with ADL's Surveillance [continuous indirect monitoring]: Bed Alarm, Masimo, Purposeful Rounding, Nurse Knowledge Exchange Shola Zhang RN 12:43 PM 12/18/22 * Kristen Aguero APRN - 12/18/2022 7:20 AM EDT Trauma Daily Progress Note ID/Mechanism of injury: In review of his chart and notes from outside hospital, [facility]. Mr. Holguin fell from a ladder on 11/30, at which time he was admitted to [facility] and subsequently discharged. Small splenic contusion noted at that time. Re- presented on 12/08 following GLF with foreheadlaceration (s/p suture repair) and high grade splenic laceration. Found to be COVID+ on that presentation. In reading [facility]'s notes there seems to have been some confusion around how best to proceed with management of his splenic injury. He had been admitted there on the Hospital Medicine service with Surgery consultation. He initially refused intervention and there was discussion of transitioning him tocomfort care. The Palliative Care service was consulted at [facility]. It is unclear from the documentation what prompted changed. Will speak with his surrogate decision maker and step-daughter, Maria Esther, in the morning. Though he has been stable at the OSH for several days without intervention he has a high grade injury. Will discuss with IR in the morning, with the intention to embolize to prevent further progression. ID was curbside re COVID-19 management as he was on Paxlovid at [facility]; unavailable inpatient here so will start Remdesivir. 24 Hour Events: -Afebrile, vital signs stable overnight -Day 04/22 COVID precautions -Hgb 9.8 (10) -WBC 12.5 (16) -Sodium 133 (131) -Mantilla removed, voiding spontaneously Vital Signs: VITALS (24hr Range): Temp Temp: [36.2 ??C (97.2 ??F)-37.3 ??C (99.1 ??F)] , HR Heart Rate: [69] , BP BP: (99-124)/(55-70) , RR Resp: [14-18] , SpO2 SpO2: [93 %-95 %] Physical Exam: GENERAL: Alert, awake, in no apparent distress, hard of hearing- laying in bed SKIN: No lacerations, abrasion or contusions on complete anterior skin exam HEENT: Laceration above right eyebrow healing with sutures removed, dressing clean, no bleeding NECK: Trachea midline, no edema CHEST/PULMONARY: Breathing comfortably on room air, no use of accessory muscles CARDIAC: Regular rate and rhythm, no murmurs, rubs, gallops appreciated GASTROINTESTINAL: Soft, non tender, non distended. Right IR site with dressing C/D/I EXTREMITIES: Normal ROM all 4 extremities, 2+ pulses throughout NEURO: AAOx3, very hard of hearing Labs: Recent Labs 12/18/226 12/17/2235412/16/22 035 WBC 12.5* 16.1* 12.2* HGB 9.8* 10.0* 11.3* HCT 29.5* 29.7* 33.7* PLATELET 424* 374* 392* Recent Labs 12/18/2233512/17/2235412/16/22 035 NA 133* 131* 132* K 3.7 3.9 3.9 CL 99 98 99 CO2 23 17* 21* BUN 14 14 15 CREATININE 0.54* 0.59* 0.51* GLUCOSE 73 85 105 CALCIUM 8.2* 8.3* 8.6 MAGNESIUM -- 0.64* -- PHOS -- 2.6 -- Microbiology: -None New Imaging: -None Procedures: -12/15: Splenic arteriography with emobolization with Amplatz plugs, two coils, and Gelfoam pledgets. Assessment: Klever Holguin is a 77 y.o. Male with PMH of seizures and HTN, admitted to the traumaservice for the management of the below injuries and medical conditions. Plan: Mr. Holguin remains hemodynamically stable, while admitted following a fall x 10 days ago. He is s/p splenic embolization via his right groin, his hemoglobin remains stable, no active signs of bleeding. -Hyponatremia improving 133 (131) -PT/OT is recommending a swing bed, with referrals are placed. Traumatic Injuries: Injury Intervention Follow-up SPINE: -Right L3 and L4 and left L5 transverse process fractures -Fractures of the T1-T3 vertebral bodies ORTHO SPINE: 12/14 SIGNED OFF -Activity: activity as tolerated; no bending, twisting, or lifting >5 lbs -Imaging needed: AP Lateral Cervical and Cervicothoracic Images. Goal is to see T1,2,3. ORTHO SPINE: -2-4 weeks in orthopaedic spine clinic with repeat XRs prior to appointment PULM: -Nondisplaced right second through eighth rib fractures and left fourth through seventh rib fractures TRAUMA: -Pulmonary Toilet -IS 10x/hr -Aerobika -Pain control TRAUMA: -Follow up in 10-14 days post injury 12/24-12/28 with repeat CXR (PA and Lateral views) ABD: -Grade 3 splenic injury with new subcapsular hematoma component involving greater than 50% of surface area. Lacerations measuring up to 5 cm. No active Extravasation. -Moderate hemoperitoneum predominantly within the pelvis TRAUMA: -INTERVENTIONAL RADIOLOGY: 12/15 -12/15/22 Splenic angiogram w/ embolization TRAUMA: -TBD ORTHO/EXTR: -Equivocal nondisplaced left sacral alar fracture ORTHO: 12/15 SIGNED OFF -Activity: AAT with walker -DVT prophylaxis: per primary, rec hold for 72 hours -Imaging needed: post mob ap/inlet/outlet -Follow-up: 2 weeks with x-rays inlet/outlet/AP ORTHO: -Follow-up: 2 weeks with x-rays inlet/outlet/AP SKIN: -Arrived with sutures placed to right eyebrow TRAUMA: -Remove sutures on 12/16 (Completed) TRAUMA: -Follow up with PCP Acute in hospital issues: Acute pain -Tylenol 650 q6hr SCHED Bowel Regimen -Pericolace BID -Miralax QD PRN -Bisacodyl Suppository PRN -LBM: 12/15 COVID Positive: (Basing precautions off of positive test on 12/08) -Completed course of Paxlovid at OSH -ID curbside, recommend Remdesivir for current admission -Precautions to at the end of the day on 12/18 Resolved in hospital issues: -TBD Chronic health conditions: Essential tremor: -Restart home Propranolol 120mg daily -Restart home Primidone 300mg q8h Migraines Obstructive sleep apnea Diet: Dysphagia Soft Diet Activity status: Activity As Tolerated Spine status: Orthopedics DVT PPX: SCDs, SQ Lovenox BID GI PPX: Not indicated, tolerating diet Lines/Tubes/Drains: PIV x2 Dispo: TBD Status: Floor Incidental Findings: -Focal anterior bladder wall thickening. Direct visualization is recommended to exclude malignancy [] Incidental Findings Form Completed Kristen Aguero, BRITTANY 12/18/2022 Trauma pager [phone] * Evelyn Desouza RN - 12/18/2022 6:01 AM EDT OUTCOME EVALUATION NOTE: OUTCOME SUMMARY: No acute events overnight. -Pt A&Ox4, pleasant and cooperative with care. -Complaints of pain to lower back and R rib area-scheduled tylenol given with good effect. Splinting pillow in place. - No complaints of SOB/YOUNGBLOOD- COVID precautions maintained. Tolerating RA. CPAP on overnight with 2 lNC. Pt declining nebulizers r/t nausea. +nonproductive congested cough. - R. Lac above eye; site CDI. - Voiding in urinal- low PVRs - LBM: 12/15/22. - Minimal PO intake needs encouragement to eat and drink. - Masimo monitoring in place. VSSS. Fall safety precautions maintained. Bed alarm on for safety. Call scott within reach. Hourly rounding performed will CTM for changes. PLAN MOVING FORWARD: COVID precautions until 12/19/22 Pain Control Mobilize I&O monitoring D/c planning INDIVIDUALIZED FALL PREVENTION INTERVENTIONS: Patient-specific fall risk factors per assessment: [current deficits]: Hospital Environment, Pain, Impaired Mobility, COVID precautions Assistance [level of assistance required for transfers and ambulation]: x1 assist with FWW Supervision [direct monitoring required during toileting and ADLs]: Eyes on hands on per unit protocol Surveillance [continuous indirect monitoring]: Shira, Patient Safety Rounding * Shola Zhang RN - 12/17/2022 5:40 PM EDT OUTCOME EVALUATION NOTE: OUTCOME SUMMARY: Pt A&O x 4, VSS on RA. Pt voiding adequately into urinal. Pt's pain controlled with scheduled and PRN pain medication. Pt cooperative with care and resting between care. No adverse events this shift. PLAN MOVING FORWARD: Pain control Mobilize D/c planning INDIVIDUALIZED FALL PREVENTION: Patient is currently a high risk to Fall. Patient educated on bed/chair alarm, demonstrates proper use of call scott and verbalizes understanding of fall preventions implemented. Patient-specific fall risk factors per assessment: [current deficits]: IV Sites, Pain, Medications,Hospital Environment. Assistance [level of assistance required for transfers and ambulation]: SBA Supervision [direct monitoring required during toileting and ADLs]: Eyes on per unit protocol when OOB/with ADL's Surveillance [continuous indirect monitoring]: Bed Alarm, Masimo, Purposeful Rounding, Nurse Knowledge Exchange Shola Zhang RN 5:46 PM 12/17/22 * Jeremy Ibarra, LEATHER WORKER - 12/17/2022 2:35 PM EDT Physical Therapy Note Treatment Number PT: 2 Patient Profile: Klever Holguin is a 77 y.o. male PMH of seizures and HTN, originally admitted toO after falling from a ladder on 11/30/22 and was discharged with a spleen injury. He re-presentedto OSH following ground level fall and found to be COVID +. [place] [facility] [place] further care for the following injuries: Traumatic Injuries: Injury Intervention Follow-up SPINE: -Right L3 and L4 and left L5 transverse process fractures -Fractures of the T1-T3 vertebral bodies ORTHO SPINE: 12/14 -Activity: activity as tolerated; no bending, twisting, or lifting >5 lbs -Imaging needed: AP Lateral Cervical and Cervicothoracic Images. Goal is to see T1,2,3. ORTHO SPINE: -2-4 weeks in orthopaedic spine clinic with repeat XRs prior to appointment PULM: -Nondisplaced right second through eighth rib fractures and left fourth through seventh rib fractures TRAUMA: -Pulmonary Toilet -IS 10x/hr -Aerobika -Pain control TRAUMA: -Follow up in 10-14 days post injury 12/24-12/28 with repeat CXR (PA and Lateral views) ABD: -Grade 3 splenic injury with new subcapsular hematoma component involving greater than 50% of surface area. Lacerations measuring up to 5 cm. No active Extravasation. -Moderate hemoperitoneum predominantly within the pelvis TRAUMA: -INTERVENTIONAL RADIOLOGY: 12/15 -12/15/22 Splenic angiogram w/ embolization TRAUMA: -TBD ORTHO/EXTR: -Equivocal nondisplaced left sacral alar fracture ORTHO: 12/16 -Activity: AAT with walker -DVT prophylaxis: per primary, rec hold for 72 hours -Imaging needed: post mob ap/inlet/outlet -Follow-up: 2 weeks with x-rays inlet/outlet/AP ORTHO: -Follow-up: 2 weeks with x-rays inlet/outlet/AP SKIN: -Arrived with sutures placed to right eyebrow TRAUMA: -Remove sutures on 12/16 (Completed) TRAUMA: -Follow up with PCP Patient with the following active problems: Past Medical History: Diagnosis Date History of migraines History of nephrolithiasis Obstructive sleep apnea Tremor, essential Ulnar neuropathy Past Surgical History: Procedure Laterality Date IR ARTERIOGRAM/EMBOLIZATION- SPLENIC 12/15/2022 IR Arteriogram/Embolization - Splenic Peter Munoz MD [facility] INTERVENTIONL RAD Interval History: per Trauma Surgery note 12/17 -Afebrile, vital signs stable overnight -Day 03/23 COVID precautions -Hgb 10 (11.3) -WBC 16.1 (12.2) -Sodium 131 (132) -Mantilla removed, voiding spontaneously Social History: Pt NANWALEK but was able to ascertain the following Home set-up: reports that he has a sunken living room w/o no hand holds for steps and reports 2 of 4 falls on those stairs Bathroom Set-up: master w/ stall shower, no shower chair Stairs: 5 to enter w/ b/l railings which cannot be reached simultaneously Baseline Mobility: indep but reports that he has people living with him who have helped him w/ IADLs (his dtr Maria Esther's co-workers) Equipment at home: standard walker w/o wheels Fall history: x 4 in the last year, 2 as above and 2 others on stairs w/ hand hold down into livingroom Precautions/Special Considerations: COVID precs, room confined for activity, markedly NANWALEK, fall risk, h/o of Szs, pain in ribs and back, B/L, spinal precautions including log roll bed mobility Lines: PIV, Masimo Activity Orders: AAT with spinal precs Diet: dysphagia soft Mobility and Positioning Recommendations: Modified log roll for spine precs but challenging r/t multiple rib Fxs Pt. to utilize FWW and cga for ambulation and transfers with nursing. OOB up in chair for meals Encourage use of IS and deep/breathe and cough, using lung pillow to splint Subjective: No regarding when asked pt to perform breathing exercises Objective: Pt seen for Physical Therapy Treatment and demonstrated the following: Pain: Pt presents with some pain in low back and chest areas Vital Signs: VSS on RA Mental Status: alert, oriented to person, place, and time Bed Mobility: Supine to Sit: Close supervision with HOB slightly elevated ~15 degrees, to L side of bed, min cuesfor log rolling Sit to Supine: NE, pt remained OOB in recliner Transfers: Sit to Stand: CGA with FWW from EOB, not elevated Stand to Sit: CGA with FWW into recliner, w/ good eccentric control and able to scoot back in chair Gait: Distance: 20 ft around bed Device used: FWW Level of assist: CGA Gait mechanics: decreased step length and height, forward flexed posture, narrow CANDY Stairs: NA Balance: Sitting Static: good at EOB w/o support Sitting Dynamic: fair Standing Static: steady w/ FWW Standing Dynamic / Gait: steady w/ FWW, narrow CANDY Education: patient has been educated on Bed mobility, Transfers, Assistive device/technique, Stairs, Breathing exercises, Positioning, Safety , Precautions/protocol, Gait , Activity pacing/Energy conservation, Role of therapy, Balance, Discharge planning, and home management and needs reinforcement. Pt left reclined in chair with call scott in reach and understands need to call for assist to mobilize Patient status, treatment, and mobility recommendations discussed with nursing. Assessment: Klever Holguin was seen today for physical therapy treatment session for continuationof POC. Pt tolerated PT session fairly. Pt presented to PT with pain in chest and low back areas. Pt unable to deep breathes and cough to clear copious secretions. Encouraged pt to perform IS, however pt declined. He was able to ambulate ~20ft around bed but declined further intervention due to pain and weakness. Pt education provided on importance of OOB in recliner and mobilizing in order to achieve his goal of walking. Pt remains confined to his room which will limit activity initially. Pt will benefit from skilled therapy services throughout hospitalization to promote safety, independence, and provide developmental support/caregiver education. Discharge Recommendations: Based on the current findings, Anticipated Discharge Disposition (PT): swing bed rehabilitation facility, shelter facility when medically ready for hospital discharge. Consult Recommendations: No other consults recommended at this time. Equipment needs: Anticipated Equipment Needs at Discharge (PT): to be determined. Goals: To be achieved by 12/26/22: -ONGOING- Pt. to demonstrate knowledge of safety limitations and precautions and will appropriately request assistance for functional activities and to mobilize. Pt. to demonstrate understanding of importance and performance of deep breath and cough exercises using splinting pillow Pt. to perform bed mobility with modified independence using side rail (can get one for home bed) Pt. to perform sit><stand transfers with modified independenceusing a front wheeled walker. Pt. to ambulate 150 feet with supervision using a a front wheeled walker. Pt. to ambulate up/down 5 step/stairs using one rail and sideward technique with CGA. Family or caregiver to demonstrate understanding of therapeutic interventions to support the care of the patient. Pt will perform appropriate exs, ADL tasks, mobilize and ambulate with tolerable level of pain and stable vital signs Plan: Therapy Frequency (PT): 2-4 times/wk for therapy including bed mobility training, gait training, home exercise program, patient/family education, postural re-education, range of motion, stair training, strengthening, transfer training, and home management and DC Planning . Patient/family understand and agree with plan as stated above. Total Minutes, Physical Therapy: 28 ([id number]) mins sheyla Ibarra PTA Pager: [phone] Physical Therapy Inpatient Rehabilitation Department * Ford Bowie MD - 12/17/2022 1:37 PM EDT Trauma Daily Progress Note ID/Mechanism of injury: Limited history from Mr. Holguin as he is quite hard of hearing. By report, chart review, and patient interview it seems as though Mr. Holguin fell from a ladder on 11/30, at which time he was admitted to [facility] and subsequently discharged. Small splenic contusion noted at that time. Re-presented on 12/08 following GLF with forehead laceration (s/p suture repair) and high grade splenic laceration. Found to be COVID+ on that presentation. In reading [facility]'s notes there seems to have been some confusion around how best to proceed with management of his splenic injury. He has been admitted there on the Hospital Medicine service with Surgery consultation. He initially refused intervention and there was discussion of transitioning him to [facility]. Palliative Care consulted. It is unclear from the documentation what changed. Will speak with his surrogate decision maker and step-daughter, Maria Esther, in the morning. Though he has been stable at the OSH for several days without intervention he has a high grade injury. Will discuss with IR in the morning, with the intention to embolize to prevent further progression. ID desean re COVID-19 management as he was on Paxlovid at [facility]; unavailable inpatient here so will start Remdesivir. 24 Hour Events: -Afebrile, vital signs stable overnight -Day 03/23 COVID precautions -Hgb 10 (11.3) -WBC 16.1 (12.2) -Sodium 131 (132) -Mantilla removed, voiding spontaneously Vital Signs: VITALS (24hr Range): Temp Temp: [36.2 ??C (97.2 ??F)-37.9 ??C (100.2 ??F)] , HR Heart Rate: [69] , BP BP: (99-135)/(55-77) , RR Resp: [14-22] , SpO2 SpO2: [91 %-95 %] Physical Exam: GENERAL: Alert, awake, in no apparent distress SKIN: No lacerations, abrasion or contusions on complete anterior skin exam HEENT: Laceration above right eyebrow with sutures removed, dressing clean, no bleeding NECK: Trachea midline, no edema CHEST/PULMONARY: Breathing comfortably on room air, no use of accessory muscles CARDIAC: Regular rate and rhythm, no murmurs, rubs, gallops appreciated GASTROINTESTINAL: Soft, non tender, non distended. Right IR site with dressing C/D/I EXTREMITIES: Normal ROM all 4 extremities, 2+ pulses throughout NEURO: AAOx3, very hard of hearing Labs: Recent Labs 12/17/22 0355 12/16/22 0359 12/15/22 1030 WBC 16.1* 12.2* 6.3 HGB 10.0* 11.3* 10.0* HCT 29.7* 33.7* 30.2* PLATELET 374* 392* 338 Recent Labs 12/17/22 0355 12/16/22 0359 12/15/22 1030 NA 131* 132* 134* K 3.9 3.9 3.8 CL 98 99 101 CO2 17* 21* 27 BUN 14 15 14 CREATININE 0.59* 0.51* 0.51* GLUCOSE 85 105 96 CALCIUM 8.3* 8.6 8.8 MAGNESIUM 0.64* -- -- PHOS 2.6 -- -- Microbiology: -None New Imaging: -None Procedures: -12/15: Splenic arteriography with emobolization with Amplatz plugs, two coils, and Gelfoam pledgets. Assessment: Klever Holguin is a 77 y.o. Male with PMH of seizures and HTN, admitted to the traumaservice for the management of the below injuries and medical conditions. Plan: -Increasing leukocytosis most likely due to splenic artery embolization. Remains afebrile, no AMS, will continue to monitor -Hyponatremic 131 (132). Monitor PO intake -PT/OT for further evaluation prior to discharge Traumatic Injuries: Injury Intervention Follow-up SPINE: -Right L3 and L4 and left L5 transverse process fractures -Fractures of the T1-T3 vertebral bodies ORTHO SPINE: 12/14 SIGNED OFF -Activity: activity as tolerated; no bending, twisting, or lifting >5 lbs -Imaging needed: AP Lateral Cervical and Cervicothoracic Images. Goal is to see T1,2,3. ORTHO SPINE: -2-4 weeks in orthopaedic spine clinic with repeat XRs prior to appointment PULM: -Nondisplaced right second through eighth rib fractures and left fourth through seventh rib fractures TRAUMA: -Pulmonary Toilet -IS 10x/hr -Aerobika -Pain control TRAUMA: -Follow up in 10-14 days post injury 12/24-12/28 with repeat CXR (PA and Lateral views) ABD: -Grade 3 splenic injury with new subcapsular hematoma component involving greater than 50% of surface area. Lacerations measuring up to 5 cm. No active Extravasation. -Moderate hemoperitoneum predominantly within the pelvis TRAUMA: -INTERVENTIONAL RADIOLOGY: 12/15 -12/15/22 Splenic angiogram w/ embolization TRAUMA: -TBD ORTHO/EXTR: -Equivocal nondisplaced left sacral alar fracture ORTHO: 12/15 SIGNED OFF -Activity: AAT with walker -DVT prophylaxis: per primary, rec hold for 72 hours -Imaging needed: post mob ap/inlet/outlet -Follow-up: 2 weeks with x-rays inlet/outlet/AP ORTHO: -Follow-up: 2 weeks with x-rays inlet/outlet/AP SKIN: -Arrived with sutures placed to right eyebrow TRAUMA: -Remove sutures on 12/16 (Completed) TRAUMA: -Follow up with PCP Acute in hospital issues: Acute pain -Tylenol 650 q6hr SCHED Bowel Regimen -Pericolace BID -Miralax QD PRN -Bisacodyl Suppository PRN -LBM: 12/15 COVID Positive: (Basing precautions off of positive test on 12/08) -Completed course of Paxlovid at OSH -ID curbside, recommend Remdesivir for current admission -Precautions to at the end of the day on 12/18 Resolved in hospital issues: -TBD Chronic health conditions: Essential tremor: -Restart home Propranolol 120mg daily -Restart home Primidone 300mg q8h Migraines Obstructive sleep apnea Diet: Dysphagia Soft Diet Activity status: Activity As Tolerated Spine status: Orthopedics DVT PPX: SCDs, SQ Lovenox BID GI PPX: Not indicated, tolerating diet Lines/Tubes/Drains: PIV x2 Dispo: TBD Status: Floor Incidental Findings: -Focal anterior bladder wall thickening. Direct visualization is recommended to exclude malignancy [] Incidental Findings Form Completed AMINTA Brice 12/17/2022 Trauma pager [phone] Acute Care Surgery Attending Addendum: I have seen this patient and agree with the above note with the following additions and/or modifications. Pleasant., no distress. Eating without nausea. Was outof bed yesterday. Needs PT and OT eval for discharge planning. Hyponatremia of unknown etiology, will recheck tomorrow. * Evelyn Desouza RN - 12/17/2022 6:00 AM EDT OUTCOME EVALUATION NOTE: OUTCOME SUMMARY: -No acute events overnight. -Pt A&Ox4, pleasant and cooperative with care. -Complaints of pain to lower back and R rib area-scheduled tylenol given with good effect. Splinting pillow in place. - No complaints of SOB/YOUNGBLOOD- COVID precautions maintained. Tolerating RA. CPAP on overnight with 2 lNC. Pt declining nebulizers r/t nausea. +nonproductive congested cough. - R. Lac above eye; site CDI. - Voiding in urinal- low PVRs; IVF infusing- LR @75 ml/hr. - LBM: 12/15/22. - Masimo monitoring in place. VSSS. Fall safety precautions maintained. Bed alarm on for safety. Call scott within reach. Hourly rounding performed will CTM for changes. * Brayan Sosa RN - 12/16/2022 5:23 PM EDT OUTCOME EVALUATION NOTE: OUTCOME SUMMARY: A&Ox4, (very NANWALEK), VSS on RA. R forehead lac, sutures removed, site intact. Off unit for spinaland pelvis XR's. Pain endorsed to lower back and bilateral ribs with movement, reported to be adequately managed with scheduled med's, see MAR. Voiding concentrated urine to the urinal with low PVR's. IVF continued. STEEL POURER HELPER at bedside, rec dysphagia soft diet. Resting between care will continue to monitor. PLAN MOVING FORWARD: Pain control Mobilize Spinal/pelvis XR post mob D/C planning INDIVIDUALIZED FALL PREVENTION: Patient is currently a high risk to Fall. Patient educated on bed/chair alarm, demonstrates proper use of call scott and verbalizes understanding of fall preventions implemented. Patient-specific fall risk factors per assessment: [current deficits]: Pain, Medications, Hospital Environment, Impaired Mobility Assistance [level of assistance required for transfers and ambulation]: x1 with FWW Supervision [direct monitoring required during toileting and ADLs]: Hands on with ADL's Surveillance [continuous indirect monitoring]: [place]ryano, Purposeful Rounding, Nurse Knowledge Exchange at Bedside, Bed Alarm Set * Ford Bowie MD - 12/16/2022 12:54 PM EDT Trauma Daily Progress Note ID/Mechanism of injury: Limited history from Mr. Holguin as he is quite hard of hearing. By report, chart review, and patient interview it seems as though Mr. Holguin fell from a ladder on 11/30, at which time he was admitted to [facility] and subsequently discharged. Small splenic contusion noted at that time. Re-presented on 12/08 following GLF with forehead laceration (s/p suture repair) and high grade splenic laceration. Found to be COVID+ on that presentation. In reading [facility]'s notes there seems to have been some confusion around how best to proceed with management of his splenic injury. He has been admitted there on the Hospital Medicine service with Surgery consultation. He initially refused intervention and there was discussion of transitioning him to [facility]. Palliative Care consulted. It is unclear from the documentation what changed. Will speak with his surrogate decision maker and step-daughter, Maria Esther, in the morning. Though he has been stable at the OSH for several days without intervention he has a high grade injury. Will discuss with IR in the morning, with the intention to embolize to prevent further progression. WALLACE anton re COVID-19 management as he was on Paxlovid at [facility]; unavailable inpatient here so will start Remdesivir. 24 Hour Events: -Afebrile, vital signs stable overnight -Day 02/20 COVID precautions -Day 1 S/P splenic embolization with two Amplatz plugs, two coils, and Gelfoam pledgets -Hgb 11.3 (10.0) -WBC 12.2 (6.3) Vital Signs: VITALS (24hr Range): Temp Temp: [36.1 ??C (97 ??F)-36.8 ??C (98.2 ??F)] , HR Heart Rate: [56-67] , BP BP: (118-151)/(71-86) , RR Resp: [16-24] , SpO2 SpO2: [90 %-100 %] Physical Exam: GENERAL: Alert, awake, in no apparent distress SKIN: No lacerations, abrasion or contusions on complete anterior skin exam HEENT: Laceration above right eyebrow with sutures in place NECK: Trachea midline, no edema CHEST/PULMONARY: Breathing comfortably on room air, no use of accessory muscles CARDIAC: Regular rate and rhythm, no murmurs, rubs, gallops appreciated GASTROINTESTINAL: Soft, non tender, non distended. Right IR site with dressing C/D/I EXTREMITIES: Normal ROM all 4 extremities, 2+ pulses throughout NEURO: AAOx3, very hard of hearing Labs: Recent Labs 12/16/22 0359 12/15/22 1030 12/14/22 1802 12/14/22 0412 12/13/22 2242 WBC 12.2* 6.3 7.3 5.6 6.7 HGB 11.3* 10.0* 10.1* 9.4* 10.1* HCT 33.7* 30.2* 29.9* 28.3* 30.5* PLATELET 392* 338 328 292 317 PT -- -- -- 13.1* 12.5 INR -- -- -- 1.1 1.1 PTT -- -- -- 35 33 Recent Labs 12/16/22 0359 12/15/22 1030 12/14/22 0412 12/13/22 2242 NA 132* 134* 133* 135 K 3.9 3.8 3.8 4.0 CL 99 101 97* 97* CO2 21* 27 27 30 BUN 15 14 10 11 CREATININE 0.51* 0.51* 0.50* 0.54* GLUCOSE 105 96 98 95 CALCIUM 8.6 8.8 8.6 8.7 MAGNESIUM -- -- 0.61* 0.62* PHOS -- -- -- 2.1* Microbiology: -None New Imaging: -None Procedures: -12/15: Splenic arteriography with emobolization with Amplatz plugs, two coils, and Gelfoam pledgets. Assessment: Klever Holguin is a 77 y.o. Male with PMH of seizures and HTN, admitted to the traumaservice for the management of the below injuries and medical conditions. Plan: -Remove right eyebrow sutures today -PT/OT for formal evaluation, followed by post mobilization films of pelvis and cervical spine -Advance diet to dysphagia soft per [employer] P[employer]ER HELPER eval -Discharge planning Traumatic Injuries: Injury Intervention Follow-up SPINE: -Right L3 and L4 and left L5 transverse process fractures -Fractures of the T1-T3 vertebral bodies ORTHO SPINE: 12/14 -Activity: activity as tolerated; no bending, twisting, or lifting >5 lbs -Imaging needed: AP Lateral Cervical and Cervicothoracic Images. Goal is to see T1,2,3. ORTHO SPINE: -2-4 weeks in orthopaedic spine clinic with repeat XRs prior to appointment PULM: -Nondisplaced right second through eighth rib fractures and left fourth through seventh rib fractures TRAUMA: -Pulmonary Toilet -IS 10x/hr -Aerobika -Pain control TRAUMA: -Follow up in 10-14 days post injury 12/24-12/28 with repeat CXR (PA and Lateral views) ABD: -Grade 3 splenic injury with new subcapsular hematoma component involving greater than 50% of surface area. Lacerations measuring up to 5 cm. No active Extravasation. -Moderate hemoperitoneum predominantly within the pelvis TRAUMA: -INTERVENTIONAL RADIOLOGY: 12/15 -12/15/22 Splenic angiogram w/ embolization TRAUMA: -TBD ORTHO/EXTR: -Equivocal nondisplaced left sacral alar fracture ORTHO: 12/16 -Activity: AAT with walker -DVT prophylaxis: per primary, rec hold for 72 hours -Imaging needed: post mob ap/inlet/outlet -Follow-up: 2 weeks with x-rays inlet/outlet/AP ORTHO: -Follow-up: 2 weeks with x-rays inlet/outlet/AP SKIN: -Arrived with sutures placed to right eyebrow TRAUMA: -Remove sutures on 12/16 (Completed) TRAUMA: -Follow up with PCP Acute in hospital issues: Acute pain -Tylenol 650 q6hr SCHED Bowel Regimen -Pericolace BID -Miralax QD PRN -Bisacodyl Suppository PRN -LBM: 12/15 COVID Positive: (Basing precautions off of positive test on 12/08) -Completed course of Paxlovid at OSH -ID curbside, recommend Remdesivir for current admission -Precautions to at the end of the day on 12/18 Resolved in hospital issues: -TBD Chronic health conditions: Essential tremor: -Restart home Propranolol 120mg daily -Restart home Primidone 300mg q8h Migraines Obstructive sleep apnea Diet: Dysphagia Soft Diet Activity status: Activity As Tolerated Spine status: Orthopedics DVT PPX: SCDs, Held due to Splenic laceration GI PPX: Not indicated, tolerating diet Lines/Tubes/Drains: PIV x2 Dispo: TBD Status: Floor Incidental Findings: -Focal anterior bladder wall thickening. Direct visualization is recommended to exclude malignancy [] Incidental Findings Form Completed AMINTA Brice 12/16/2022 Trauma pager [phone] Acute Care Surgery Attending Addendum: I have seen this patient and agree with the above note with the following additions and/or modifications. Looks well, no real complaints. IR embolization of thespleen yesterday. Hgb stable, WBC up but likely secondary to embolization. Repeat CBC tomorrow to follow the trend. Mild hyponatremia, will follow with labs at this time. PT and OT. * Dianne Cruz, PT - 12/16/2022 12:25 PM EDT Physical Therapy Evaluation Patient Profile: Klever Holguin is a 77 y.o. male PMH of seizures and HTN, originally admitted toO after falling from a ladder on 11/30/22 and was discharged with a spleen injury. He re-presentedto OSH following ground level fall and found to be COVID +. [place] [facility] [place] further care for the following injuries: Traumatic Injuries: Injury Intervention Follow-up SPINE: -Right L3 and L4 and left L5 transverse process fractures -Fractures of the T1-T3 vertebral bodies ORTHO SPINE: 12/14 -Activity: activity as tolerated; no bending, twisting, or lifting >5 lbs -Imaging needed: AP Lateral Cervical and Cervicothoracic Images. Goal is to see T1,2,3. ORTHO SPINE: -2-4 weeks in orthopaedic spine clinic with repeat XRs prior to appointment PULM: -Nondisplaced right second through eighth rib fractures and left fourth through seventh rib fractures TRAUMA: -Pulmonary Toilet -IS 10x/hr -Aerobika -Pain control TRAUMA: -Follow up in 10-14 days post injury 12/24-12/28 with repeat CXR (PA and Lateral views) ABD: -Grade 3 splenic injury with new subcapsular hematoma component involving greater than 50% of surface area. Lacerations measuring up to 5 cm. No active Extravasation. -Moderate hemoperitoneum predominantly within the pelvis TRAUMA: -INTERVENTIONAL RADIOLOGY: 12/15 -12/15/22 Splenic angiogram w/ embolization TRAUMA: -TBD ORTHO/EXTR: -Equivocal nondisplaced left sacral alar fracture ORTHO: 12/16 -Activity: AAT with walker -DVT prophylaxis: per primary, rec hold for 72 hours -Imaging needed: post mob ap/inlet/outlet -Follow-up: 2 weeks with x-rays inlet/outlet/AP ORTHO: -Follow-up: 2 weeks with x-rays inlet/outlet/AP SKIN: -Arrived with sutures placed to right eyebrow TRAUMA: -Remove sutures on 12/16 (Completed) TRAUMA: -Follow up with PCP 24 Hour Events: -Afebrile, vital signs stable overnight -Day 02/20 COVID precautions -Day 1 S/P splenic embolization with two Amplatz plugs, two coils, and Gelfoam pledgets -Hgb 11.3 (10.0) -WBC 12.2 (6.3) Patient with the following active problems: Past Medical History: Diagnosis Date History of migraines History of nephrolithiasis Obstructive sleep apnea Tremor, essential Ulnar neuropathy Past Surgical History: Procedure Laterality Date IR ARTERIOGRAM/EMBOLIZATION- SPLENIC 12/15/2022 IR Arteriogram/Embolization - Splenic Peter Munoz MD [facility] INTERVENTIONL RAD Social History: Pt NANWALEK but was able to ascertain the following Home set-up: reports that he has a sunken living room w/o no hand holds for steps and reports 2 of 4 falls on those stairs Bathroom Set-up: master w/ stall shower, no shower chair Stairs: 5 to enter w/ b/l railings which cannot be reached simultaneously Baseline Mobility: indep but reports that he has people living with him who have helped him w/ IADLs (his dtr Maria Esther's co-workers) Equipment at home: standard walker w/o wheels Fall history: x 4 in the last year, 2 as above and 2 others on stairs w/ hand hold down into livingroom Precautions/Special Considerations: COVID precs, room confined for activity, markedly NANWALEK, fall risk, h/o of Szs, pain in ribs and back, B/L, spinal precautions including log roll bed mobility Lines: PIV, Masimo Activity Orders: AAT with spinal precs Diet: dysphagia soft Mobility and Positioning Recommendations: Modified log roll for spine precs but challenging r/t multiple rib Fxs Pt. to utilize FWW and cga for ambulation and transfers with nursing. OOB up in chair for meals Encourage use of IS and deep/breathe and cough, using lung pillow to splint Subjective: ???There is one of my dtr's co-workers who can help me?? Objective: Pt seen in collaboration w/ OT for evaluation and demonstrated the following: Pain: Number Location At rest Did not rate at at rest reported pain tolerable Back r/t lumbar and thoracic spine Fxs and b/l chest r/t b/l rib fixs, With activity Did not rate, facial grimace during position transition, modified log roll, pt also reluctant to use IS, deep breathe or cough. Supplied w/ lung pillow to splint for same same Vital Signs: Last value Range last 8 hrs Temperature Temp: 37.9 ??C (100.2 ??F) Temp: [36.8 ??C (98.2 ??F)-37.9 ??C (100.2 ??F)] Heart Rate Heart Rate: 60 Heart Rate: -- Blood Pressure BP: 135/77 BP: (118-135)/(77) Respiratory Rate Resp: 19 Resp: [16-19] SpO2 SpO2: 92 % SpO2: [92 %-94 %] Mental Status: alert, oriented to person, place, and time but did not ask orientation questions, Vision: not assessed Skin: pt quite thin, at risk for skin breakdown, can see R clavicular plate from old fx Musculoskeletal: ROM: decreased in back, trunk, chest r/t pain from spine and rib fxs Strength: decreased core, trunk, back, chest for mobility and for managing secretions Sensation: NE Bed Mobility: Supine to Sit: toward pt's L as at home w/ HOB ^ 30 degrees w/ min assist, modified log roll Sit to Supine: NE, pt remained OOB in recliner Transfers: Sit to Stand: to FWW from bed, not elevated, close CGA of 1 Stand to Sit: into recliner from FWW w/ good eccentric control and able to scoot back in chair Gait: Distance: 20 ft around bed Device used: FWW Level of assist: CGA of 1 Gait mechanics: decreased step length and height Stairs: NA Balance: Sitting Static: midline upright w/o support Sitting Dynamic: not assessed Standing Static: steady w/ FWW, not assessed w/o Standing Dynamic / Gait: steady w/ FWW, not assessed w/o Education: patient has been educated on Bed mobility, Transfers, Assistive device/technique, Stairs, Breathing exercises, Positioning, Safety , Precautions/protocol, Gait , Activity pacing/Energy conservation, Role of therapy, Balance, Discharge planning, and home management and needs reinforcement. Pt left reclined in chair with call scott in reach and understands need to call for assist to mobilize Patient status, treatment, and mobility recommendations discussed with nursing. Assessment: Klever Holguin is now hospital day # 3 s/p 2 falls at home in which he sustained the above injuries b/l ribs fxs and thoracic and lumbar spine Fxs and now POD # 1 Splenic angiogram w/ embolization with IR. Pt presenting with back, chest, trunk pain with deficits in ROM and strength inall these areas which is significantly impacting functional balance, mobility, gait and ADL and ability to take deep breathes and cough to clear copious secretions. Pt is also + for COVID and remainsconfined to his room which will limit activity initially. Due to marked hearing impairment is was somewhat difficult to ascertain what kind of support he will have at home (and left message for his dtr Maria Esther's voicemail) Discharge Recommendations: Based on the current findings, Anticipated Discharge Disposition (PT): to be determined pending medical status & functional progression (home w/ assist ? 03/02 vs short in-pt rehab stay) when medically ready for hospital discharge. Consult Recommendations: No other consults recommended at this time. Equipment needs: Anticipated Equipment Needs at Discharge (PT): to be determined. Goals: To be achieved by 12/26/22: Pt. to demonstrate knowledge of safety limitations and precautions and will appropriately request assistance for functional activities and to mobilize. Pt. to demonstrate understanding of importance and performance of deep breath and cough exercises using splinting pillow Pt. to perform bed mobility with modified independence using side rail (can get one for home bed) Pt. to perform sit><stand transfers with modified independenceusing a front wheeled walker. Pt. to ambulate 150 feet with supervision using a a front wheeled walker. Pt. to ambulate up/down 5 step/stairs using one rail and sideward technique with CGA. Family or caregiver to demonstrate understanding of therapeutic interventions to support the care of the patient. Pt will perform appropriate exs, ADL tasks, mobilize and ambulate with tolerable level of pain and stable vital signs Plan: Therapy Frequency (PT): 2-4 times/wk for therapy including bed mobility training, gait training, home exercise program, patient/family education, postural re-education, range of motion, stair training, strengthening, transfer training, and home management and DC Planning . Patient/family understand and agree with plan as stated above. 2017 PT Evaluation Code Rationale: Diagnosis & Pertinent Co-Morbidities, personal factors, and present illness affecting Plan of Care: (see above); Additional personal factors or co- morbidities that impact plan: Total # of Factors: 0 1-2 3+ x Examination of body system impairments, functional limitations and behaviors, and/or participation restrictions. Addressing 1-2 elements Addressing 3 + elements Addressing 4 + elements x Clinical presentation: See assessment above. Stable/Uncomplicated Evolving/Fluctuating Symptoms Unstable/Unpredictable X thoracic and lumbar spine fxs, b/l ribs fxs, s/p splenic angiogram and emobolization, pain in above areas, COVID + w/ ^^ cough and secretions w/ reluctance to deep/breathe d/t pain, issued splinting pillow, markedly NANWALEK, assist for mobility Clinical decision making of moderate complexity based on pt's functional performance as outlined inthis evaluation. Time IN / OUT: 3849-3746 Total Minutes, Physical Therapy: 35 mins mod baldo CRUZ, PT Pager: [phone] Physical Therapy Inpatient Rehabilitation Department * Audra Moore PA - 12/16/2022 8:48 AM EDT Interventional Radiology Inpatient Progress Note Admitted 12/13/2022 Procedure(s): Splenic arteriography and occlusion of the splenic artery with coils??and??plugs Post-procedure day: #1 Time of patient encounter: 08:45 24 Hour Events: -No adverse events overnight -AVSS on RA -Denies abdominal pain at this time Last Value 24 Hour Range Temperature 36.1 ??C (97 ??F) Temp: [36.1 ??C (97 ??F)-36.4 ??C (97.5 ??F)] Heart Rate 60 Heart Rate: [56-67] Blood Pressure 138/85 BP: (116-151)/(71-86) Respiratory Rate 16 Resp: [16-24] SpO2 94 % SpO2: [90 %-100 %] Physical Exam GEN No distress, A&O, hard of hearing ABD Non tender, nondistended ACCESS Right NURSE LICENSED PRACTICAL site C/D/I Labs: Reviewed - Last 3 wbc, hgb, hct plt Recent Labs 12/16/22 0359 12/15/22 1030 12/14/22 1802 WBC 12.2* 6.3 7.3 HGB 11.3* 10.0* 10.1* HCT 33.7* 30.2* 29.9* PLATELET 392* 338 328 Imaging: No relevant post procedural imaging. Assessment: 77 y.o. male POD#1 splenic arteriography and occlusion of the splenic artery with coils??and??plugs. Stable on the floor with recent labs and vital signs stable. Remainder of care per primary team. Plan: IR will sign-off at this time. Please page with further questions and concerns. MANE McmullenC Interventional Radiology IR Team Pager [phone] * Kaylah Pathak MSW - 12/16/2022 8:36 AM EDT HOUSE REGISTRY RN consult moved to RS list as patient wants to redo AD. Kaylah MEDINA,POWER LINEWORKER [phone] * Brayan Sosa RN - 12/15/2022 6:25 PM EDT OUTCOME EVALUATION NOTE: OUTCOME SUMMARY: A&Ox4, VSS on RA. R forehead lac, sutures CDI. Off unit to IR for splenic embolization, R groinaccess, site WNL with gauze dressing. Pain endorsed to lower back and bilateral ribs with movement,reported to be adequately managed with scheduled med's, see MAR. Annalee in place, 1 BM on the commode. IVF started. Waiting for 1st meal at this time. Resting between care will continue to monitor. PLAN MOVING FORWARD: Pain control Mobilize Spinal/pelvis XR post mob D/C planning INDIVIDUALIZED FALL PREVENTION: Patient is currently a high risk to Fall. Patient educated on bed/chair alarm, demonstrates proper use of call scott and verbalizes understanding of fall preventions implemented. Patient-specific fall risk factors per assessment: [current deficits]: Pain, Medications, Hospital Environment, Impaired Mobility Assistance [level of assistance required for transfers and ambulation]: x1 with FWW Supervision [direct monitoring required during toileting and ADLs]: Hands on with ADL's Surveillance [continuous indirect monitoring]: Masimo, Purposeful Rounding, Nurse Knowledge Exchange at Bedside, Bed Alarm Set * Brayan Sosa RN - 12/15/2022 4:22 PM EDT Pt returned to 302 from IR s/p splenic embolization, R groin access. R groin no signs of hematoma, swelling, bleeding or tenderness. Gauze and tegraderm in place c/d/i. Pt aox4, VSS on RA. Pt to be HOB flat until 1650 with 2x groin checks. Call scott in hand bed alarm activated. IVF initiated. * Megan Greene RN - 12/15/2022 12:54 PM EDT ANGIO NURSING DATABASE Name: Klever Holguin Date of : 1945 AGE: 77 y.o. Address: [address] [address] (home) Mobile: Telephone Information: Referring Provider: Bruce Kang REASON FOR VISIT: Order Questions Answers Reason for exam and clinical history: s/p fall and splenic lac increasing, please embolize Is the patient on anticoagulant / antiplatelet therapy ? Aspirin Is the patient taking any anticoagulants and/or antiplatelet meds? No Is patient awake, alert, and consentable? Yes Does patient need assist to stand? Yes Does Patient have any mobility limitations (e.g. spinal precautions) Yes Does patient require constant supervision? No Is patient over 450 lbs (200 kg) No If cardiac monitoring, can EKG leads be removed? Yes Does patient have a pacemaker? No Does patient have a Chest Tube? No Is there a language / communication barrier? Yes Planned procedure: Spenic artery embolization Labs to be performed day of procedure: No labs Sedation: Moderate (Conscious sedation) Prophylactic antibiotic : None Contrast: Omnipaque Additional medications for procedure: Lidocaine Position: Supine Consent: Completed Case Urgency:: D- Intervention within 24 hrs Allergies Allergen Reactions ??? Aspirin Nausea And Vomiting Pertinent PMH: Patient Active Problem List Diagnosis Code ??? Ulnar neuropathy G56.20 ??? History of nephrolithiasis Z87.442 ??? Obstructive sleep apnea G47.33 ??? Tremor, essential G25.0 ??? Chronic back pain M54.9, G89.29 ??? Weight loss, unintentional R63.4 ??? Heavy smoker F17.200 ??? COPD (chronic obstructive pulmonary disease) J44.9 ??? Splenic laceration S36.039A Date/Procedure Meds Given/Comments 12/15/22 Splenic angiogram w/ embolization Fentanyl 100 mcg IV, Versed 2 mg IV, tolerated well (FYI VERY hard of hearing) 1255 to procedure room 3 via stretcher. Onto table supine. All monitors, O2, safety strap in place.Meds per protocol. Arterial Puncture Post Procedure Site: Right groin Closure device used: Mynx Time sheath removed: 1445 Time of hemostasis: 1450 Hematoma present?: No Anticipated up time: 1650 Laboratory Results: Lab Results Component Value Date INR 1.1 12/14/2022 Lab Results Component Value Date CREATININE 0.51 (L) 12/15/2022 Lab Results Component Value Date K 3.8 12/15/2022 Lab Results Component Value Date PLATELET 338 12/15/2022 * Vicente Amin PA - 12/15/2022 10:59 AM EDT Trauma Daily Progress Note ID/Mechanism of injury: Limited history from Mr. Holguin as he is quite hard of hearing. By report, chart review, and patient interview it seems as though Mr. Holguin fell from a ladder on 11/30, at which time he was admitted to [facility] and subsequently discharged. Small splenic contusion noted at that time. Re-presented on 12/08 following GLF with forehead laceration (s/p suture repair) and high grade splenic laceration. Found to be COVID+ on that presentation. In reading [facility]'s notes there seems to have been some confusion around how best to proceed with management of his splenic injury. He has been admitted there on the Hospital Medicine service with Surgery consultation. He initially refused intervention and there was discussion of transitioning him to [facility]ON SIGN ERECTOR. Palliative Care consulted. It is unclear from the documentation what changed. Will speak with his surrogate decision maker and step-daughter, Maria Esther, in the morning. Though he has been stable at the OSH for several days without intervention he has a high grade injury. Will discuss with IR in the morning, with the intention to embolize to prevent further progression. WALLACE anton re COVID-19 management as he was on Paxlovid at [facility]; unavailable inpatient here so will start Remdesivir. 24 Hour Events: -Afebrile, vital signs stable overnight -Day 01/20 COVID precautions -Hgb 10.1 (9.4) -Unable to consent for Embolization -PA/lateral CXR with no pneumo Vital Signs: VITALS (24hr Range): Temp Temp: [36.4 ??C (97.5 ??F)-36.9 ??C (98.4 ??F)] , HR Heart Rate: --, BP BP: (92-133)/(62-84) ,RR Resp: [18-20] , SpO2 SpO2: [92 %-95 %] Physical Exam: GENERAL: Alert, awake, in no apparent distress SKIN: No lacerations, abrasion or contusions on complete anterior skin exam HEENT: Laceration above right eyebrow with sutures in place NECK: Trachea midline, no edema CHEST/PULMONARY: Breathing comfortably on room air, no use of accessory muscles CARDIAC: Regular rate and rhythm, no murmurs, rubs, gallops appreciated GASTROINTESTINAL: Soft, non tender, non distended EXTREMITIES: Normal ROM all 4 extremities, 2+ pulses throughout NEURO: AAOx3, very hard of hearing Labs: Recent Labs 12/15/22 1030 12/14/22 1802 12/14/22 0412 12/13/22 2242 WBC 6.3 7.3 5.6 6.7 HGB 10.0* 10.1* 9.4* 10.1* HCT 30.2* 29.9* 28.3* 30.5* PLATELET 338 328 292 317 PT -- -- 13.1* 12.5 INR -- -- 1.1 1.1 PTT -- -- 35 33 Recent Labs 12/14/22 0412 12/13/22 2242 NA 133* 135 K 3.8 4.0 CL 97* 97* CO2 27 30 BUN 10 11 CREATININE 0.50* 0.54* GLUCOSE 98 95 CALCIUM 8.6 8.7 MAGNESIUM 0.61* 0.62* PHOS -- 2.1* Microbiology: -None New Imaging: -None Procedures: -None Assessment: Klever Holguin is a 77 y.o. Male with PMH of seizures and HTN, admitted to the traumaservice for the management of the below injuries and medical conditions. Plan: -AAOx3 today. Spoke with patient who is now interested in embolization/consentable. IR kitty. Will plan for afternoon embolization -PT/OT, needs post mob imaging when able -Facial sutures to be removed tomorrow 12/16 -Start Lovenox this evening, 30mg BID -Discharge planning Traumatic Injuries: Injury Intervention Follow-up SPINE: -Right L3 and L4 and left L5 transverse process fractures -Fractures of the T1-T3 vertebral bodies ORTHO SPINE: 12/14 -Activity: activity as tolerated; no bending, twisting, or lifting >5 lbs -DVT prophylaxis: per primary; recommend holding for 72 hrs -Medications: acetaminophen, NSAIDs -Imaging needed: upright AP, lateral thoracic and lumbar spine XRs ORTHO SPINE: -2-4 weeks in orthopaedic spine clinic with repeat XRs prior to appointment PULM: -Nondisplaced right second through eighth rib fractures and left fourth through seventh rib fractures TRAUMA: -Pulmonary Toilet -IS 10x/hr -Aerobika -Pain control TRAUMA: -Follow up in 10-14 days post injury 12/24-12/28 with repeat CXR (PA and Lateral views) ABD: -Grade 3 splenic injury with new subcapsular hematoma component involving greater than 50% of surface area. Lacerations measuring up to 5 cm. No active Extravasation. -Moderate hemoperitoneum predominantly within the pelvis TRAUMA: -IR consulted. Patient currently lacks capacity to make decision for embolization. DPOA daughter Maria Esther contact, no embo currently TRAUMA: -TBD ORTHO/EXTR: -Equivocal nondisplaced left sacral alar fracture ORTHO: 12/15 -Activity: AAT with walker -DVT prophylaxis: per primary, rec hold for 72 hours -Imaging needed: post mob ap/inlet/outlet ORTHO: -Follow-up: 2 weeks with x-rays inlet/outlet/AP SKIN: -Arrived with sutures placed to right eyebrow TRAUMA: -Remove sutures on 12/16 (~Day 10) TRAUMA: -Follow up with PCP Acute in hospital issues: Acute pain -Tylenol 650 q6hr SCHED Bowel Regimen -Pericolace BID -Miralax QD PRN -Bisacodyl Suppository PRN -LBM: 12/14 COVID Positive: (Unknown date of positive test) -Completed course of Paxlovid at OSH -ID curbside, recommend Remdesivir for current admission -Precautions to at the end of the day on 12/18 Resolved in hospital issues: -TBD Chronic health conditions: Essential tremor: -Restart home Propranolol 120mg daily Migraines Obstructive sleep apnea Diet: NPO diet (Give Meds) Activity status: Activity As Tolerated Spine status: Orthopedics DVT PPX: SCDs, Held due to Splenic laceration GI PPX: Not indicated, tolerating diet Lines/Tubes/Drains: PIV x2 Dispo: TBD Status: Floor Incidental Findings: -Focal anterior bladder wall thickening. Direct visualization is recommended to exclude malignancy [] Incidental Findings Form Completed AMINTA Brice 12/15/2022 Trauma pager [phone] * Asad Salazar - 12/15/2022 10:03 AM EDT 12/15/22 0959 Evaluation & Treatment Document Type contact Total Minutes, Physical Therapy 0 Treatment Date 12/15/22 Comment, Session Not Performed Pt evaluation received. Chart review completed. Messaged AMINTA Amin, who relayed the message that the patient is being embolized for a splenic laceration today 12/15. PT evaluation pending updated mobility orders and hemodynamic stability following procedure, likely 12/16.. * Carlos Dickinson RN - 12/14/2022 6:43 PM EDT OUTCOME EVALUATION NOTE: OUTCOME SUMMARY: A&Ox4, VSS on RA. R forehead lac CDI. Patient awaiting CXR. Patient had BM today. Patient's pain adequately controlled with scheduled and PRN medications, see MAR for medications given. Will continue to monitor and help patient reach d/c goals. PLAN MOVING FORWARD: Pain control Mobilize CXR D/C planning INDIVIDUALIZED FALL PREVENTION: Patient is currently a high risk to Fall. Patient educated on bed/chair alarm, demonstrates proper use of call scott and verbalizes understanding of fall preventions implemented. Patient-specific fall risk factors per assessment: [current deficits]: Pain, Medications, Hospital Environment, Impaired Mobility Assistance [level of assistance required for transfers and ambulation]: x1 with FWW Supervision [direct monitoring required during toileting and ADLs]: Hands on with ADL's Surveillance [continuous indirect monitoring]: Shira, Purposeful Rounding, Nurse Knowledge Exchange at Bedside, Bed Alarm Set * Constance Giordano STEEL POURER HELPER - 12/14/2022 2:12 PM EDT Speech-Language Pathology 12/14/2022 2:12 PM Total Treatment Time: 0 min. No charge Total Timed Code Treatment: 0 min. STEEL POURER HELPER consult received. Chart reviewed. Attempted to see patient for a bedside swallow evaluation, however patient is currently NPO for a procedure. Will follow-up at a later date as appropriate. Constance Giordano MS, [facility] Speech-Language Pathologist Rehabilitation Medicine Pager # [phone] * Libra Dykes MD - 12/14/2022 1:56 PM EDT Trauma Daily Progress Note ID/Mechanism of injury: Limited history from Mr. Holguin as he is quite hard of hearing. By report, chart review, and patient interview it seems as though Mr. Holguin fell from a ladder on 11/30, at which time he was admitted to [facility] and subsequently discharged. Small splenic contusion noted at that time. Re-presented on 12/08 following GLF with forehead laceration (s/p suture repair) and high grade splenic laceration. Found to be COVID+ on that presentation. In reading [facility]'s notes there seems to have been some confusion around how best to proceed with management of his splenic injury. He has been admitted there on the Hospital Medicine service with Surgery consultation. He initially refused intervention and there was discussion of transitioning him to NEON SIGN ERECTOR. Palliative Care consulted. It is unclear from the documentation what changed. Will speak with his surrogate decision maker and step-daughter, Maria Esther, in the morning. Though he has been stable at the OSH for several days without intervention he has a high grade injury. Will discuss with IR in the morning, with the intention to embolize to prevent further progression. ID desean re COVID-19 management as he was on Paxlovid at [facility]; unavailable inpatient here so will start Remdesivir. 24 Hour Events: -Afebrile, vital signs stable overnight -Hgb 9.4 (10.1) -Rib fractures found on second read of CT CAP Vital Signs: VITALS (24hr Range): Temp Temp: [36.6 ??C (97.9 ??F)-37.8 ??C (100 ??F)] , HR Heart Rate: --, BP BP: (117-137)/(75-86) ,RR Resp: [18-19] , SpO2 SpO2: [94 %-97 %] Physical Exam: GENERAL: Alert, awake, in no apparent distress SKIN: No lacerations, abrasion or contusions on complete anterior skin exam HEENT: Laceration above right eyebrow with sutures in place NECK: Trachea midline, no edema CHEST/PULMONARY: Breathing comfortably on room air, no use of accessory muscles CARDIAC: Regular rate and rhythm, no murmurs, rubs, gallops appreciated GASTROINTESTINAL: Soft, non tender, non distended EXTREMITIES: Normal ROM all 4 extremities, 2+ pulses throughout NEURO: Able to state name, location, confused on date and why he is in the hospital. Very hard of hearing Labs: Recent Labs 12/14/22 0412 12/13/22 2242 WBC 5.6 6.7 HGB 9.4* 10.1* HCT 28.3* 30.5* PLATELET 292 317 PT 13.1* 12.5 INR 1.1 1.1 PTT 35 33 Recent Labs 12/14/22 0412 12/13/22 2242 NA 133* 135 K 3.8 4.0 CL 97* 97* CO2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 this patient safely be transported by car or wheelchair van (i.e. seated during transport, without medical intern or monitoring?): No 4) In addition to complete questions 1-3 above, please select any of the following conditions that apply: *Note: supporting documentation for any boxes checked must be maintained in the patient's medical records Moderate/severe pain on movement Unable to tolerate seated position for time needed to transport Section III - Signature of Physician or Healthcare Professional I certify that the above information is true and correct based on my evaluation of this patient, and represent that the patient requires transport by ambulance and that other forms of transport are contraindicated. I understand that this information will be used by the Centers of Medicare and Medicaid Services ([facility]) to support the determination of medical necessity for ambulance services, and I represent that I have personal knowledge of the patient's condition at the time of transport. Susan Escalona RN 12/24/22 Form was electronically signed and dated by the patient's Physician or Healthcare Professional *Form must be signed only by patient's attending physician for scheduled, repetitive transports. For non-repetitive, unscheduled ambulance transports, when unable to obtain the signature of the attending RADHA Patel,vp clinical research Team Case Management Pager #[phone] physician, this form was signed by Registered Nurse * Care Management - Susan Escalona RN - 12/24/2022 8:40 AM EDT Based on discussions with the multi-disciplinary healthcare team, the patient would benefit from SNF level of care at discharge. I have met with the patient and daughter to: discuss discharge planning needs. provide the [facility], Office of Care Management letter from the Smart Grid Engineer pertaining to rehab referrals. provide a letter describing our affiliations within the [facility] and educate about their right to choose where referrals are sent. provide the [facility] Star Quality Rating handout. review the different levels of rehab including SNF, swing, and acute. provide a list of facilities within their preferred geographic area. request that they provide at least three choices for referral. They have requested referrals to: [facility] [address] [facility], [address] [place] [address] Does patient have COVID vaccine card: No Note routed to a Florist Helper who will communicate referrals to facilities and provide any required information. RADHA Patel,vp clinical research Team Case Management Pager #[phone] * Plan of Care - Brayan Sosa RN - 12/23/2022 4:23 PM EDT OUTCOME EVALUATION NOTE: OUTCOME SUMMARY: Pt A&Ox4, VSS on RA. Pain reported to be controlled adequately, not requiring any medications. Lung sounds course with infrequent non-productive cough. AUOP, concentrated, Pt encouraged to increase PO intake. OOB with 1A FWW to commode and chair. Worked with PT. Bed/chair alarm settings appropriate for patient. Call scott in reach, resting between care, will continue to monitor. PLAN MOVING FORWARD: Monitor I&Os Pain control Mobilize / PT/OT D/c planning INDIVIDUALIZED FALL PREVENTION: Patient is currently a high risk to Fall. Patient educated on bed/chair alarm, demonstrates proper use of call scott and verbalizes understanding of fall preventions implemented. Patient-specific fall risk factors per assessment: [current deficits]: Lines/Drains, Pain, Medications, Hospital Environment. Assistance [level of assistance required for transfers and ambulation]: 1A FWW Supervision [direct monitoring required during toileting and ADLs]: Hands on / Eyes on with ADL's Surveillance [continuous indirect monitoring]: Bed/chair alarm, Masimo, Purposeful Rounding, Nurse Knowledge Exchange Patient-specific fall prevention interventions for sensory deficits provided, if applicable: n/a * Care Management - Susan Escalona RN - 12/23/2022 8:57 AM EDT OFFICE OF CARE MANAGEMENT PROGRESS NOTE LOS: Hospital Day 10 days Chart reviewed, care reviewed with primary team and at interdisciplinary rounds. Patient is medically ready for discharge and is awaiting a SNF bed. Decision Maker: Self Functional status prior to admission: Independent Home Environment: Others in the home: roomate(s). Current Living Arrangements: home/apartment/condo. Accessibility Concerns: 10 TERE one story home. Current Functional Ability: Assistive Person and Equipment DME used at home: none DME Needed at Discharge: No Patient is insured through: Primary Insurance: [employer] MANAGED MEDICARE Payor: [employer] MANAGED MEDICARE / Plan: [employer] MANAGED MEDICARE PPO / Product Type: *No Product type* / Secondary Insurance: N/A Last Physical Therapy Recommendation: swing bed rehabilitation facility, shelter facility with to be determined Last Occupational Therapy Recommendation: swing bed rehabilitation facility, shelter facility with to be determined Plan for discharge is: Alf Facility / Swing Outpatient Agency/Support Group Needs: Homecare agency Based on discussions with the multi-disciplinary healthcare team, the patient would benefit from SNF level of care at discharge. I have met with the patient and Alisha: discuss discharge planning needs. provide the [facility] Office of Care Management letter from the Smart Grid Engineer pertaining to rehab referrals. provide a letter describing our affiliations within the [facility] and educate about their right to choose where referrals are sent. provide the CMS Star Quality Rating handout. review the different levels of rehab including SNF, swing, and acute. provide a list of facilities within their preferred geographic area. request that they provide at least three choices for referral. They have requested referrals to: Agency Referrals: [facility] [address] [address] [address] P: [phone] F: [phone] [facility] ([facility]) [address] [place] [address] Does patient have COVID vaccine card: Note routed to a Florist Helper who will communicate referrals to facilities and provide any required information. Transportation: ambulance Ambulance Finance Conversation Completed: 12/19/2022 Spoke to: patient Verbalized Understanding: Yes Barriers to discharge: No male SNF beds available Plan going forward: This CM spoke to Maria Esther and increased the referrals today. Care Management will continue to follow and assist with discharge planning and coordination of care as indicated. Anticipated Date of Discharge: 12/25/2022 RADHA Patel,vp clinical research Team Case Management Pager #[phone] * Care Management - Susan Escalona RN - 12/23/2022 8:50 AM EDT Based on discussions with the multi-disciplinary healthcare team, the patient would benefit from SNF level of care at discharge. I have met with the patient and Maria Esther to: discuss discharge planning needs. provide the [facility] Office of Care Management letter from the Smart Grid Engineer pertaining to rehab referrals. provide a letter describing our affiliations within the [facility] and educate about their right to choose where referrals are sent. provide the CMS Star Quality Rating handout. review the different levels of rehab including SNF, swing, and acute. provide a list of facilities within their preferred geographic area. request that they provide at least three choices for referral. They have requested referrals to: [facility] [address] [address] [address] P: [phone] F: [phone] [facility] ([facility]) [address] [place] [address] Does patient have COVID vaccine card: No Note routed to a Florist Helper who will communicate referrals to facilities and provide any required information. RADHA Patel,vp clinical research Team Case Management Pager #[phone] * Plan of Care - Brayan Sosa RN - 12/22/2022 5:36 PM EDT OUTCOME EVALUATION NOTE: OUTCOME SUMMARY: Pt A&Ox4, VSS on RA. Pain reported to be controlled adequately, not requiring any medications. Lung sounds course with infrequent non-productive cough. AUOP, concentrated, Pt encouraged to increase PO intake. OOB with 1A FWW to commode and chair. Bed/chair alarm settings appropriate for patient. Call scott in reach, resting between care, will continue to monitor. PLAN MOVING FORWARD: Monitor I&Os Pain control Mobilize / PT/OT D/c planning INDIVIDUALIZED FALL PREVENTION: Patient is currently a high risk to Fall. Patient educated on bed/chair alarm, demonstrates proper use of call scott and verbalizes understanding of fall preventions implemented. Patient-specific fall risk factors per assessment: [current deficits]: Lines/Drains, Pain, Medications, Hospital Environment. Assistance [level of assistance required for transfers and ambulation]: 1A FWW Supervision [direct monitoring required during toileting and ADLs]: Hands on / Eyes on with ADL's Surveillance [continuous indirect monitoring]: Bed/chair alarm, Masimo, Purposeful Rounding, Nurse Knowledge Exchange Patient-specific fall prevention interventions for sensory deficits provided, if applicable: n/a * Plan of Care - Brayan Sosa RN - 12/21/2022 5:06 PM EDT OUTCOME EVALUATION NOTE: OUTCOME SUMMARY: Pt A&Ox4, VSS on RA. Pain reported to be adequately, not requiring any medications. Lung soundscourse with infrequent non-productive cough. AUOP, concentrated, Pt encouraged to increase PO intake. Incontinent of loose stool x1, hold all BM med's. OOB with 1A FWW to commode and chair. Bed/chairalarm settings appropriate for patient. Call scott in reach, resting between care, will continue to monitor. PLAN MOVING FORWARD: Monitor I&Os Pain control Mobilize / PT/OT D/c planning INDIVIDUALIZED FALL PREVENTION: Patient is currently a high risk to Fall. Patient educated on bed/chair alarm, demonstrates proper use of call scott and verbalizes understanding of fall preventions implemented. Patient-specific fall risk factors per assessment: [current deficits]: Lines/Drains, Pain, Medications, Hospital Environment. Assistance [level of assistance required for transfers and ambulation]: 1A FWW Supervision [direct monitoring required during toileting and ADLs]: Hands on / Eyes on with ADL's Surveillance [continuous indirect monitoring]: Bed/chair alarm, Masimo, Purposeful Rounding, Nurse Knowledge Exchange Patient-specific fall prevention interventions for sensory deficits provided, if applicable: n/a * Plan of Care - Xiomara Sellers RN - 12/21/2022 6:47 AM EDT OUTCOME EVALUATION NOTE: OUTCOME SUMMARY: Patient endorsing minimal pain this shift. Patient resting between care. Patient refusing back assessment this shift. No adverse events this shift. VSS. Will continue to monitor and help patient reach d/c goals. PLAN MOVING FORWARD: Mobilize D/c planning INDIVIDUALIZED FALL PREVENTION: Patient is currently a high risk to Fall. Patient educated on bed/chair alarm, demonstrates proper use of call scott and verbalizes understanding of fall preventions implemented. Patient-specific fall risk factors per assessment: [current deficits]: Medications, Hospital Environment. Assistance [level of assistance required for transfers and ambulation]: 1A w/ walker Supervision [direct monitoring required during toileting and ADLs]: Eyes on per unit protocol when OOB/with ADL's Surveillance [continuous indirect monitoring]: Masimo, Purposeful Rounding, Nurse Knowledge Exchange * Care Management - Katia Becerril RN - 12/20/2022 10:21 AM EDT Care Management Progress note Victorian Literature Professor called [facility] with inquiry on bed availability. Left for admission coordinator Monae ([phone]) to call back at the earliest convenience. Katia JACOBSON, vp clinical research Team Carpet LayerBusiness Account Leader of Care Management [email or web address] Pager #[phone] * Plan of Care - Cordelia Thurman RN - 12/20/2022 5:44 AM EDT OUTCOME EVALUATION NOTE: OUTCOME SUMMARY: Pt A&Ox4, VSS on RA (CPAP w/ 2L @ PM). Pt pain adequately controlled with scheduled pain medications and PRN (see MAR). + frequent non-productive cough. Refusing nebs. Last BM 12/15. Bed/chair alarm settings appropriate for patient. Call scott in reach, sleeping between care, will continue to monitor and help patient reach d/c goals. I/O this shift: In: 300 [P.O.:300] Out: 450 [Urine:450] PLAN MOVING FORWARD: Monitor I&Os Pain control Mobilize / PT/OT D/c planning INDIVIDUALIZED FALL PREVENTION: Patient is currently a high risk to Fall. Patient educated on bed/chair alarm, demonstrates proper use of call scott and verbalizes understanding of fall preventions implemented. Patient-specific fall risk factors per assessment: [current deficits]: Lines/Drains, Pain, Medications, Hospital Environment. Assistance [level of assistance required for transfers and ambulation]: 1A FWW Supervision [direct monitoring required during toileting and ADLs]: Hands on / Eyes on with ADL's Surveillance [continuous indirect monitoring]: Bed/chair alarm, Masimo, Purposeful Rounding, Nurse Knowledge Exchange Patient-specific fall prevention interventions for sensory deficits provided, if applicable: n/a * Care Management - Susan Escalona RN - 12/19/2022 4:50 PM EDT OFFICE OF CARE MANAGEMENT PROGRESS NOTE LOS: Hospital Day 6 days Chart reviewed, care reviewed with primary team and at interdisciplinary rounds. Patient is medically ready for discharge and waiting for a SNF bed. Decision Maker: Self Functional status prior to admission: Independent Home Environment: Others in the home: roomate(s). Current Living Arrangements: home/apartment/condo. Accessibility Concerns: 10 TERE one story home. Current Functional Ability: Assistive Person and Equipment DME used at home: none DME Needed at Discharge: No Patient is insured through: Primary Insurance: [employer] MANAGED MEDICARE Payor: [employer]GED MEDICARE / Plan: [employer] MANAGED MEDICARE PPO / Product Type: *No Product type* / Secondary Insurance: N/A Last Physical Therapy Recommendation: swing bed rehabilitation facility, shelter facility with to be determined Last Occupational Therapy Recommendation: swing bed rehabilitation facility, shelter facility with None, to be determined Plan for discharge is: Alf Facility / Swing Agency Referrals: Based on discussions with the multi-disciplinary healthcare team, the patient would benefit from SNF level of care at discharge. I have met with the patient to: discuss discharge planning needs. provide the [facility] Office of Care Management letter from the Smart Grid Engineer pertaining to rehab referrals. provide a letter describing our affiliations within the [facility] and educate about their right to choose where referrals are sent. provide the [facility] Star Quality Rating handout. review the different levels of rehab including SNF, swing, and acute. provide a list of facilities within their preferred geographic area. request that they provide at least three choices for referral. They have requested referrals to: [facility] [address] [place] [address] [facility] ([facility]) [address] [place] [address] [facility] [address] [place] [id number] Does patient have COVID vaccine card: No Note routed to a Florist Helper who will communicate referrals to facilities and provide any required information. Transportation: ambulance Ambulance Finance Conversation Completed: 12/19/2022 Spoke to: patient Verbalized Understanding: Yes Barriers to discharge: Patient is awaiting a SNF bed and there are no available beds at this time Plan going forward: This CM called [facility] to check on the status of beds. Care Management will continue to follow and assist with discharge planning and coordination of care as indicated. Anticipated Date of Discharge: 12/20/2022 RADHA Patel,vp clinical research Team Case Management Pager #[phone] * Care Management - Susan Escalona RN - 12/18/2022 10:16 AM EDT Based on discussions with the multi-disciplinary healthcare team, the patient would benefit from SNF / Swing level of care at discharge. I have met with the patient and daughter Alisha: discuss discharge planning needs. provide the [facility] Office of Care Management letter from the Smart Grid Engineer pertaining to rehab referrals. provide a letter describing our affiliations within the [facility] and educate about their right to choose where referrals are sent. provide the [facility] Star Quality Rating handout. review the different levels of rehab including SNF, swing, and acute. provide a list of facilities within their preferred geographic area. request that they provide at least three choices for referral. They have requested referrals to: [facility] [address] [place] [address] [facility] ([facility]) [address] [place] [address] [facility] [address] [place] [id number] Does patient have COVID vaccine card: No Note routed to a Florist Helper who will communicate referrals to facilities and provide any required information. RADHA Patel,vp clinical research Team Case Management Pager #[phone] * Care Management - Susan Escalona RN - 12/17/2022 8:55 AM EDT OFFICE OF CARE MANAGEMENT PROGRESS NOTE LOS: Hospital Day 4 days Chart reviewed, care reviewed with primary team and at interdisciplinary rounds. Patient continues to meet inpatient level of care related to: splenic laceration, post splenic embolization 12/16 Decision Maker: Self Functional status prior to admission: Independent Home Environment: Others in the home: roomate(s). Current Living Arrangements: home/apartment/condo. Accessibility Concerns: 10 TERE one story home. Current Functional Ability: Assistive Person and Equipment DME used at home: none DME Needed at Discharge: No Patient is insured through: Primary Insurance: MEDICARE Payor: MEDICARE / Plan: MEDICARE PART A & B / Product Type: *No Product type* / Secondary Insurance: [employer] MANAGED MEDICARE Last Physical Therapy Recommendation: to be determined pending medical status & functional progression (home w/ assist ? 03/02 vs short in-pt rehab stay) with to be determined Last Occupational Therapy Recommendation: to be determined pending medical status & functional progression with to be determined Plan for discharge is: Pending Hospital Course and PT/OT Recommendations Outpatient Agency/Support Group Needs: Homecare agency Home Health Services: Physical Therapy, Registered Nurse, Occupational Therapy Agency Referrals: I have met with the patient to: discuss discharge planning needs. provide the [facility] Office of Care Management letter from the Smart Grid Engineer pertaining to rehab referrals. provide a letter describing our affiliations within the [facility] and educate about their right to choose where referrals are sent. provide a list of Home Health Agencies / Durable Medical Equipment vendors which serve their preferred geographic area. provided patient with [facility] Star Quality Rating handout. They have requested referrals to: [facility] [address] [place] [id number] Note routed to a Florist Helper who will communicate referrals to facilities and provide any required information. Transportation: daughter Barriers to discharge: Patient is on Covid precautions until 12/18. He needs to work with PT/OT and have a STEEL POURER HELPER evaluation. Plan going forward: Care Management will continue to follow and assist with discharge planning and coordination of care as indicated. Anticipated Date of Discharge: 12/18/2022 RADHA Patel,vp clinical research Team Case Management Pager #[phone] * Initial Assessments - Keagan Banks, OT - 12/16/2022 5:47 PM EDT Occupational Therapy Evaluation Patient Profile: Klever Holguin is a 77 y.o. male PMH of seizures and HTN, originally admitted toO after falling from a ladder on 11/30/22 and was discharged with a spleen injury. He re-presentedto OSH following ground level fall and found to be COVID +. Pt transferred to [facility] on 12/13/2022 for further care for the following injuries: Traumatic Injuries: Injury Intervention Follow-up SPINE: -Right L3 and L4 and left L5 transverse process fractures -Fractures of the T1-T3 vertebral bodies ORTHO SPINE: 12/14 -Activity: activity as tolerated; no bending, twisting, or lifting >5 lbs -Imaging needed: AP Lateral Cervical and Cervicothoracic Images. Goal is to see T1,2,3. ORTHO SPINE: -2-4 weeks in orthopaedic spine clinic with repeat XRs prior to appointment PULM: -Nondisplaced right second through eighth rib fractures and left fourth through seventh rib fractures TRAUMA: -Pulmonary Toilet -IS 10x/hr -Aerobika -Pain control TRAUMA: -Follow up in 10-14 days post injury 12/24-12/28 with repeat CXR (PA and Lateral views) ABD: -Grade 3 splenic injury with new subcapsular hematoma component involving greater than 50% of surface area. Lacerations measuring up to 5 cm. No active Extravasation. -Moderate hemoperitoneum predominantly within the pelvis TRAUMA: -INTERVENTIONAL RADIOLOGY: 12/15 -12/15/22 Splenic angiogram w/ embolization TRAUMA: -TBD ORTHO/EXTR: -Equivocal nondisplaced left sacral alar fracture ORTHO: 12/16 -Activity: AAT with walker -DVT prophylaxis: per primary, rec hold for 72 hours -Imaging needed: post mob ap/inlet/outlet -Follow-up: 2 weeks with x-rays inlet/outlet/AP ORTHO: -Follow-up: 2 weeks with x-rays inlet/outlet/AP SKIN: -Arrived with sutures placed to right eyebrow TRAUMA: -Remove sutures on 12/16 (Completed) TRAUMA: -Follow up with PCP 24 Hour Events: -Afebrile, vital signs stable overnight -Day 02/20 COVID precautions -Day 1 S/P splenic embolization with two Amplatz plugs, two coils, and Gelfoam pledgets -Hgb 11.3 (10.0) -WBC 12.2 (6.3) Past Medical History: Diagnosis Date History of migraines History of nephrolithiasis Obstructive sleep apnea Tremor, essential Ulnar neuropathy Past Surgical History: Procedure Laterality Date IR ARTERIOGRAM/EMBOLIZATION- SPLENIC 12/15/2022 IR Arteriogram/Embolization - Splenic Peter Munoz MD [facility] INTERVENTIONL RAD Active Non-Hospital Problems Diagnosis Weight loss, unintentional Heavy smoker COPD (chronic obstructive pulmonary disease) Chronic back pain Tremor, essential Ulnar neuropathy History of nephrolithiasis Obstructive sleep apnea Social History: Patient lives with people who he described as daughters coworker and Home Setup: multi lvl home, 5STE B handrail but can't reach both, sunken living room with 2 steps, kitchen and living room on same lvl, standard garcia size bed, stall shower DME: FWW, cane Baseline ADL/Mobility: Independent ADLs, Assist with IADLs, drives for groceries, manages own medications using pill box, 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 Objective: Seen today for OT evaluation. 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 Communication: WFL Range of motion, strength, coordination: Hand dominance: right Bilateral UE: WFL LE limitations: WFL for functional mobility task Sensation: grossly intact Activities of Daily Living: Pt declined ADLs Functional Mobility: Supine to sit: Min A w HOB elevated Sit to stand: CGA w FWW Ambulation: CGA w FWW ~20ft around bed to recliner Stand to sit: SBA w FWW w good eccentric control Sit to supine: NA (pt remained in recliner at end of session) Balance: Sitting balance: Good Standing balance: Fair + w FWW Vitals: VSS on RA Pain: Pain in back and ribs but no numerical value given Skin: incision groin Education: patient have been educated on Role of occupational therapy/rehabilitation, Transfers, Positioning, Safety, Functional Mobility, Balance, Recommendations, and Discharge planning and verbalize and demonstrate understanding. Patient status, treatment, and mobility recommendations discussed with nursing. Assessment: Pt has been seen for occupational therapy evaluation. Klever Holguin presents with the following performance skill deficits and client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 Smokeless tobacco: Never ??? Tobacco comments: taking chantix, trying to quit Vaping Use ??? Vaping Use: Never used Substance and Sexual Activity ??? Alcohol use: No ??? Drug use: No ??? Sexual activity: Not on file Comment: question deferred Review of Systems: As per HPI, otherwise negative Objective: Temp: [36.6 ??C (97.9 ??F)-37.8 ??C (100 ??F)] Heart Rate: -- Resp: [18-19] BP: (117-137)/(75-86) SpO2: [95 %-97 %] Heart Rate from SpO2: [73 bpm-87 bpm] Gen: NAD, awake, alert, appropriate CV: RRR, no MGR Pulm: Non-labored breathing, lungs CTA Focused Spine Exam: Neck: Full ROM, no pain with flexion or extension. No cervical spine bony tenderness, crepitance, or stepoff. Back: Inspection of back is normal. No stepoff. No abrasons present. No eccyhmosis present. Nontender to palpation throughout spine Motor: Segment Muscle Action R L C5 Deltoid Shoulder Abd 5 5 C5 Biceps Elbow flexion 5 5 C6 ECRL, ECRB Wrist extension 5 5 C7 Triceps Elbow extension 5 5 C8 Hand Grasp 5 5 T1 Hand intrinsics Finger abd/adduction 5 5 L2 Iliopsoas Hip flexion 5 5 L3 Quadriceps Knee extension 5 5 L4,5 Hamstring Knee Flexion 5 5 L4 Tibialis anterior Dorsiflexion 5 5 L5 Extensor hallucis Great toe extension 5 5 S1 Gastrocnemius, FHL Plantar flexion 5 5 Sensory: (to light touch and pin prick) Segment location Right Left C4 top of AC joint 2 2 C5 lat side antecub fossa 2 2 C6 dorsal thumb 2 2 C7 dorsal middle finger 2 2 C8 dorsal small finger 2 2 T1 med side antecub fossa 2 2 T2 apex axilla 2 2 T3 3rd IS (intercostal space) 2 2 T4 nipple line 2 2 T5 5th IS 2 2 T6 6th IS 2 2 T7 7th IS 2 2 T8 8th IS 2 2 T9 9th IS 2 2 T10 10th iS 2 2 T11 11th iS 2 2 T12 mid inguinal ligament 2 2 L1 upper inner thigh 2 2 L2 mid-ant thigh 2 2 L3 med femoral condyle 2 2 L4 medial mal 2 2 L5 dorsum foot, 3rd MT 2 2 S1 lat heal 2 2 S2 Popliteal fossa 2 2 Reflexes: R L Biceps 2/4 2/4 Miller absent absent Plantar Downgoing Downgoing Clonus absent absent Sacral Reflexes: No priapism Ext. Anal Sphincter: Passive Tone - intact Active squeeze - intact Imaging: CT cervical, thoracic and lumbar spine (12/14/22): T1/2 compression fracture with T3 superior endplate fx, no retropulsion. Right L3/4 TP and L L5 TP fx, minimally displaced Assessment/Plan: 77 y.o. male who presents with T1/T2 mild anterior wedge compression fractures, T8klgpidje endplate fracture, right L3/L4 TP fractures, left L5 TP fracture, possible left sacral alar fracture. Discussed that this injury can be managed conservatively without surgical intervention. When able, upright AP and lateral XRs of the thoracic and lumbar spine should be obtained to assess stability of this injury. Recommend patient be allowed to perform activity as tolerated while avoiding bending,twisting, or lifting greater than 5 lbs. Plan for follow-up in the orthopaedic spine clinic in 4 weeks with repeat radiographs. The patient will be contacted by the orthopaedic spine clinic to schedule this appointment. - Activity: activity as tolerated; no bending, twisting, or lifting >5 lbs - DVT prophylaxis: per primary; recommend holding for 72 hrs - Medications: acetaminophen, NSAIDs - Imaging needed: upright AP, lateral thoracic and lumbar spine XRs - Follow-up: 2-4 weeks in orthopaedic spine clinic with repeat XRs prior to appointment Theodore Whittaker MD Orthopaedic Surgery, [phone] Associated attestation - Jarod Gonzalez MD - 12/15/2022 8:21 AM EDT Discussed with resident. Imaging reviewed. Dx: T1,2,3 mild compression fractures with no apparent posterior changes. No significant kyphosis. Facets intact. TP fracture L3,4,5 Stable injuries. No indication for surgical intervention. Activity:As noted in resident note Bracing: None DVT prophylaxis: as in resident note. Follow-up: 4 weeks Imaging needed at follow-up: AP Lateral Cervical and Cervicothoracic Images. Goal is to see T1,2,3. Jarod Gonzalez MD [facility] Sp[facility] Surgery - Department of Orthopaedic Surgery Care Services Manager - Department of Orthopedic Surgery / [employer] Gearcase Assembler Professor [facility] 12/15/2022 Jarod Gonzalez MD [facility] Fill Technician - Orthopedic Spine Surgery Care Services Manager - Department of Orthopedic Surgery / [employer] Television Host [facility] documented in this encounter Plan of Treatment Not on file documented as of this encounter Procedures Procedure Name Priority Date/Time Associated Diagnosis Comments XR CHEST PA AND LATERAL Routine 12/26/19 6:26 AM EDT HEMOGRAM Routine 12/22/2022 3:59 AM EDT DIFFERENTIAL, AUTOMATED Routine 12/23/19 3:59 AM EDT CBC (WITH DIFF) Routine 12/22/2022 3:59 AM EDT PHOSPHORUS Routine 12/21/2022 5:41 AM EDT MAGNESIUM Routine 12/21/2022 5:41 AM EDT BASIC METABOLIC PANEL Routine 12/21/2022 5:41 AM EDT PHOSPHORUS Routine 12/20/2022 11:37 AM EDT MAGNESIUM Routine 12/20/2022 11:37 AM EDT BASIC METABOLIC PANEL Routine 12/20/2022 11:37 AM EDT HEMOGRAM Routine 12/19/2022 3:46 AM EDT DIFFERENTIAL, AUTOMATED Routine 12/20/19 3:46 AM EDT CBC (WITH DIFF) Routine 12/19/2022 3:46 AM EDT BASIC METABOLIC PANEL Routine 12/19/2022 3:46 AM EDT HEMOGRAM Routine 12/18/2022 3:36 AM EDT DIFFERENTIAL, AUTOMATED Routine 12/19/19 3:36 AM EDT CBC (WITH DIFF) Routine 12/18/2022 3:36 AM EDT BASIC METABOLIC PANEL Routine 12/18/2022 3:36 AM EDT SCAN, PERIPHERAL BLOOD Routine 3:55 AM EDT HEMOGRAM Routine 12/17/2022 3:55 AM EDT DIFFERENTIAL, AUTOMATED Routine 12/18/19 3:55 AM EDT CBC (WITH DIFF) Routine 12/17/2022 3:55 AM EDT PHOSPHORUS Routine 12/17/2022 3:55 AM EDT MAGNESIUM Routine 12/17/2022 3:55 AM EDT BASIC METABOLIC PANEL Routine 12/17/2022 3:55 AM EDT XR THORACIC SPINE 2 VIEWS Routine 12/16/2022 5:06 PM EDT XR PELVIS MIN 3 VIEWS Routine 12/16/2022 5:06 PM EDT HEMOGRAM Routine 12/16/2022 3:59 AM EDT DIFFERENTIAL, AUTOMATED Routine 12/17/19 3:59 AM EDT CBC (WITH DIFF) Routine 12/16/2022 3:59 AM EDT BASIC METABOLIC PANEL Routine 12/16/2022 3:59 AM EDT XR CERVICAL SPINE 2 OR 3 VIEWS Routine 12/15/2022 10:52 PM EDT IR ARTERIOGRAM/EMBOLIZATIO N- SPLENIC STAT 12/15/2022 3:13 PM EDT HEMOGRAM STAT 12/15/2022 10:30 AM EDT DIFFERENTIAL, AUTOMATED STAT 12/16/19 10:30 AM EDT CBC (WITH DIFF) STAT 12/15/2022 10:30 AM EDT BASIC METABOLIC PANEL Routine 12/15/2022 10:30 AM EDT XR CHEST PA AND LATERAL Routine 12/15/19 7:44 PM EDT HEMOGRAM STAT 12/14/2022 6:02 PM EDT DIFFERENTIAL, AUTOMATED STAT 12/15/19 6:02 PM EDT CBC (WITH DIFF) STAT 12/14/2022 6:02 PM EDT HEMOGRAM Routine 12/14/2022 4:12 AM EDT DIFFERENTIAL, AUTOMATED Routine 12/15/19 4:12 AM EDT HC PARTIAL THROMBOPLASTIN TIME Routine 12/14/2022 4:12 AM EDT PROTHROMBIN TIME Routine 12/14/2022 4:12 AM EDT CBC (WITH DIFF) Routine 12/14/2022 4:12 AM EDT MAGNESIUM Routine 12/14/2022 4:12 AM EDT BASIC METABOLIC PANEL Routine 12/14/2022 4:12 AM EDT REQUEST FOR 2ND READ CT HEAD AND SPINE STAT 12/13/2022 10:56 PM EDT REQUEST FOR 2ND READ CT HEAD STAT 12/13/2022 10:55 PM EDT REQUEST FOR 2ND READ CT SPINE STAT 12/13/2022 10:54 PM EDT REQUEST FOR 2ND READ CT CHEST ABDOMEN PELVIS STAT 12/13/2022 10:53 PM EDT TYPE AND SCREEN VALIDITY Routine 12/13/2022 10:42 PM EDT ABORH RECHECK STATUS Routine 12/13/2022 10:42 PM EDT HEMOGRAM STAT 12/13/2022 10:42 PM EDT DIFFERENTIAL, AUTOMATED STAT 12/14/19 10:42 PM EDT ABO/RH TYPING Routine 12/13/2022 10:42 PM EDT HC PARTIAL THROMBOPLASTIN TIME STAT 12/13/2022 10:42 PM EDT PROTHROMBIN TIME STAT 12/13/2022 10:4 2 PM EDT CBC (WITH DIFF) STAT 12/13/2022 10:42 PM EDT ANTIBODY SCREEN Routine 12/13/2022 10:42 PM EDT TYPE AND SCREEN ([facility]SHAYLA[place] Routine 12/13/2022 10:42 PM EDT PHOSPHORUS STAT 12/13/2022 10:42 PM EDT MAGNESIUM STAT 12/13/2022 10:42 PM EDT COMPREHENSIVE METABOLIC PANEL STAT 12/13/2022 10:42 PM EDT FILM LIBRARY STORAGE ONLY CT ABDOMEN AND PELVIS Routine 12/11/2022 12:00 AM EDT documented in this encounter Results * XR [...] who have questions please contact the health long term care phlebotomist that requested your imaging first. ? Electronically signed by: Kalyn Aguilar MD, [facility] ([phone]), at 02/11/2023 5:12 PM Narrative 02/11/2023 5:12 [...] patients who have questions please contactthe health long term care phlebotomist that requested your imaging first. Ford Bowie MD IMG DX ORDERABLES * XR Chest PA & Lateral (Generic) (12/25/2022 6:26 AM EDT) Anatomical Region Laterality Modality Chest N/A Digital Radiogra phy Impressions 12/25/2022 9:56 AM EDT No significant interval change. Small LEFT posterior layering pleural effusion. I have personally reviewed the image(s) and the resident's interpretation and agree with the findings, Pedrito Mcgee MD at 12/25/2022 9:56 AM Thank you for letting us participate in the care of this patient. ??If you are a health care provider and have any questions regarding this report, please contact the number below. ??For patients who have questions please contact the health long term care phlebotomist that requested your imaging first. ? Electronically signed by: Pedrito Mcgee MD, [facility] ([phone]), at 12/25/2022 9:56 AM Narrative 12/25/2022 9:56 AM EDT EXAMINATION: XR CHEST PA AND LATERAL (GENERIC) CLINICAL HISTORY: S/P fall, routine trauma follow up for bilateral rib fractures TECHNIQUE: PA and lateral views of the chest COMPARISON: Chest radiograph 12/14/2022, CT chest 12/08/2022 FINDINGS: Partially visualized RIGHT clavicle fixation hardware. Flattening of the diaphragm and bilateral apically predominant parenchymal lucencies consistent with known emphysematous disease. Unchanged small posterior layering LEFT pleural effusion. No focal pulmonary consolidation. No pneumothorax. The cardiomediastinal silhouette is within normal limits. No acutely displaced rib fractures identified. Procedure Note Pedrito Mcgee MD - 12/25/2022 EXAMINATION: XR CHEST PA AND LATERAL (GENERIC) CLINICAL HISTORY: S/P fall, routine trauma follow up for bilateral ribfractures TECHNIQUE: PA and lateral views of the chest COMPARISON: Chest radiograph 12/14/2022, CT chest 12/08/2022 FINDINGS: Partially visualized RIGHT clavicle fixation hardware. Flattening of the diaphragm and bilateral apically predominantparenchymal lucencies consistent with known emphysematous disease. Unchanged smallposterior layering LEFT pleural effusion. No focal pulmonary consolidation. No pneumothorax. The cardiomediastinal silhouette is within normal limits.No acutely displaced rib fractures identified. IMPRESSION No significant interval change. Small LEFT posterior layering pleural effusion. I have personally reviewed the image(s) and the resident's interpretationand agree with the findings, Pedrito Mcgee MD at 12/25/2022 9:56 AM Thank you for letting us participate in the care of this patient. If youare a health care provider and have any questions regarding this report,please contact the number below. For patients who have questions please contactthe health long term care phlebotomist that requested your imaging first. Ford Bowie MD IMG DX ORDERABLES * (ABNORMAL) Differential, Automated (12/22/2022 3:59 AM EDT) Neutrophil % 75.9 % [facility] Neutrophil Absolute 7.02(H) 1.70 - 6.10 x10(3)/mc L [facility] Lymph % 9.3 % [facility] Lymphocytes Abs 0.9 0.9 - 3.2 x10(3)/mc L [facility] Monocyte % 14.0 % [facility] Monocyte Abs 1.3(H) 0.3 - 0.9 x10(3)/mc L [facility] Eos % 0.1 % [facility] Eosinophils Abs 0.0 0.0 - 0.4 x10(3)/mc L [facility] Basophil % 0.4 % [facility] Baso Absolute 0.0 0.0 - 0.1 x10(3)/mc L [facility] Immature Gran % 0.30 % [facility] Comment: Immature granulocytes(IG's)percentage and absolute count will include metamyelocytes, myelocytes, and promyelocytes. Blood smears from CBCs yielding IG's will be scanned manually for concordance. If this scan disagrees with the automated IG or if promyelocytes are noted, a manual differential will be performed. Immature Gran Absolute 0.03 0.00 - 0.04 x10(3)/mc L [facility] Blood 12/22/2022 3:59 AM EDT 12/22/2022 4:28 AM EDT Narrative Resulting Agency Comment Spec In Lab Vicente LEMOS HEMATOLOGY ORDERAB LES Performing Organization Address City/[facility]/ZIP Co de Phone Number [facility] [place] [address] * (ABNORMAL) Hemogram (12/22/2022 3:59 AM EDT) White Blood Cell 9.3 4.0 - 9.5 x10(3)/ L [facility] Red Blood Cell 3.34(L) 4.58 - 5.54 x10(6)/ L [facility] Hemoglobin 9.9(L) 13.7 - 16.5 g/dL [facility] Hematocrit 30.0(L) 40.5 - 48.5 % [facility] Mean Cell Volume 89.8 82.9 - 93.1 fL [facility] Mean Cell Hemoglobin 29.6 27.5 - 32.1 pg [facility] Mean Cell Hemoglobin Concentration 33.0 32.0 - 35.7 g/dL [facility] Platelet 474(H) 145 - 357 x10(3)/mc L [facility] RDW Standard Deviation 60.7(H) 36.0 - 45.0 fL [facility] RDW coefficient of variation 18.7(H) 11.4 - 13.8 % [facility] Mean Platelet Volume 9.5 7.6 - 12.9 fL [facility] NRBC% auto 0.0 % [facility] NRBC Absolute 0.000 0.000 - 0.000 x10(3)/mc L [facility] Blood 12/22/2022 3:59 AM EDT 12/22/2022 4:28 AM EDT Narrative Resulting Agency Comment Spec In Lab Vicente LEMOS HEMATOLOGY ORDERAB LES Performing Organization Address City/[facility]/ZIP Co de Phone Number [facility] [place] [address] * Phosphorus (12/21/2022 5:41 AM EDT) Phosphorus 2.7 2.5 - 4.5 mg/dL [facility] Blood Venous Draw / Unknown 12/21/2022 5:41 AM EDT 12/21/2022 5:45 AM EDT Narrative Resulting Agency Comment Spec In Lab Vicente LEMOS CHEMISTRY ORDERABL ES Performing Organization Address City/[facility] Co de Phone Number [facility] [place] [address] * Magnesium (12/21/2022 5:41 AM EDT) Magnesium 0.76 0.69 - 1.07 mmol/L [facility] Blood Venous Draw / Unknown 12/21/2022 5:41 AM EDT 12/21/2022 5:45 AM EDT Narrative Resulting Agency Comment Spec In Lab Vicente LEMOS CHEMISTRY ORDERABL ES Performing Organization Address [facility] de Phone Number [facility] [place] [address] * (ABNORMAL) Basic Metabolic Panel (non-fasting) (12/21/2022 5:41 AM EDT) Glucose 102 65 - 199 mg/dL [facility] Comment:Diabetes: >=200 mg/d L plus symptoms Blood Urea Nitrogen 10 10 - 20 mg/dL [facility] Creatinine 0.46(L) 0.80 - 1.50 mg/dL [facility] Sodium 135 135 - 145 mmol/L [facility] Potassium 3.6 3.5 - 5.0 mmol/L [facility] Comment: Please note: ??Patients with WBC >100,000 may have falsely elevated Potassium levels. ??For accurate Potassium quantification in these patients send serum separator tube (gold top) for subsequent determinations. ??Contact the Clinical Chemistry Laboratory if there are any questions. Chloride 99 98 - 107 mmol/L [facility] Carbon Dioxide 28 22 - 31 mmol/L [facility] Anion Gap 8 5 - 15 mmol/L [facility] Calcium 8.3(L) 8.5 - 10.5 mg/dL [facility] Est Glomerular Filtration Rate 109 >=60 mL/min/1. 73 m?? [facility] Comment: This patient's estimated GFR was calculated using the 2020 CKD-EPI equation. The estimated GFR can vary from the measured GFR by up to 30% in the absence of rapidly changing kidney function. Assessment of the estimated GFR is not appropriate when creatinine concentrations are rapidly changing. For clinical situations in which a more precise estimate of GFR is necessary, consider alternative methods of GFR estimation such as a 24-hour urine creatinine clearance. Assignment of CKD stage 1-5 for patients with an eGFR near the transition point between stages may be based on clinical assessment of muscle mass and symptoms in addition to eGFR. Blood 12/21/2022 5:41 AM EDT 12/21/2022 5:45 AM EDT Narrative Resulting Agency Comment Spec In Lab Ford Bowie MD CHEMISTRY ORDERABLES Performing Organization Address [facility] Co de Phone Number [facility] [place] [address] * (ABNORMAL) Phosphorus (12/20/2022 11:37 AM EDT) Phosphorus 2.2(L) 2.5 - 4.5 mg/dL [facility] Blood 12/20/2022 11:3 7 AM EDT 12/20/2022 11:53 AM EDT Narrative Resulting Agency Comment Spec In Lab Ford Bowie MD CHEMISTRY ORDERABLES Performing Organization Address [facility] Co de Phone Number [facility] [place] [address] * Magnesium (12/20/2022 11:37 AM EDT) Magnesium 0.87 0.69 - 1.07 mmol/L [facility] Blood 12/20/2022 11:3 7 AM EDT 12/20/2022 11:53 AM EDT Narrative Resulting Agency Comment Spec In Lab Ford Bowie MD CHEMISTRY ORDERABLES Performing Organization Address [facility] Co de Phone Number [facility] [place] [address] * (ABNORMAL) Basic Metabolic Panel (non-fasting) (12/20/2022 11:37 AM EDT) Glucose 126 65 - 199 mg/dL [facility] Comment:Diabetes: >=200 mg/d L plus symptoms Blood Urea Nitrogen 13 10 - 20 mg/dL [facility] Creatinine 0.50(L) 0.80 - 1.50 mg/dL [facility] Sodium 134(L) 135 - 145 mmol/L [facility] Potassium 3.8 3.5 - 5.0 mmol/L [facility] Comment: Please note: ??Patients with WBC >100,000 may have falsely elevated Potassium levels. ??For accurate Potassium quantification in these patients send serum separator tube (gold top) for subsequent determinations. ??Contact the Clinical Chemistry Laboratory if there are any questions. Chloride 99 98 - 107 mmol/L [facility] Carbon Dioxide 27 22 - 31 mmol/L [facility] Anion Gap 8 5 - 15 mmol/L [facility] Calcium 8.2(L) 8.5 - 10.5 mg/dL [facility] [facility] Est Glomerular Filtration Rate 106 >=60 mL/min/1. 73 m?? [facility] Comment: This patient's estimated GFR was calculated using the 2020 CKD-EPI equation. The estimated GFR can vary from the measured GFR by up to 30% in the absence of rapidly changing kidney function. Assessment of the estimated GFR is not appropriate when creatinine concentrations are rapidly changing. For clinical situations in which a more precise estimate of GFR is necessary, consider alternative methods of GFR estimation such as a 24-hour urine creatinine clearance. Assignment of CKD stage 1-5 for patients with an eGFR near the transition point between stages may be based on clinical assessment of muscle mass and symptoms in addition to eGFR. Blood 12/20/2022 11:3 7 AM EDT 12/20/2022 11:53 AM EDT Narrative Resulting Agency Comment Spec In Lab Ford Bowie MD CHEMISTRY ORDERABLES Performing Organization Address [facility] Co de Phone Number [facility] [place] [address] * (ABNORMAL) Differential, Automated (12/19/2022 3:46 AM EDT) Neutrophil % 78.9 % [facility] Neutrophil Absolute 8.54(H) 1.70 - 6.10 x10(3)/mc L [facility] Lymph % 7.4 % [facility] Lymphocytes Abs 0.8(L) 0.9 - 3.2 x10(3)/ L [facility] Monocyte % 12.7 % [facility] Monocyte Abs 1.4(H) 0.3 - 0.9 x10(3)/mc L [facility] Eos % 0.1 % [facility] Eosinophils Abs 0.0 0.0 - 0.4 x10(3)/[facility] Basophil % 0.3 % [facility] Baso Absolute 0.0 0.0 - 0.1 x10(3)/[facility] Immature Gran % 0.60 % [facility] Comment: Immature granulocytes(IG's)percentage and absolute count will include metamyelocytes, myelocytes, and promyelocytes. Blood smears from CBCs yielding IG's will be scanned manually for concordance. If this scan disagrees with the automated IG or if promyelocytes are noted, a manual differential will be performed. Immature Gran Absolute 0.06(H) 0.00 - 0.04 x10(3)/ L [facility] Blood 12/19/2022 3:46 AM EDT 12/19/2022 4:34 AM EDT Narrative Resulting Agency Comment Spec In Lab Vicente LEMOS HEMATOLOGY ORDERAB LES [facility] [place] [address] * (ABNORMAL) Hemogram (12/19/2022 3:46 AM EDT) White Blood Cell 10.8(H) 4.0 - 9.5 x10(3)/ L [facility] Red Blood Cell 3.29(L) 4.58 - 5.54 x10(6)/mc L [facility] Hemoglobin 9.6(L) 13.7 - 16.5 g/dL [facility] Hematocrit 29.0(L) 40.5 - 48.5 % [facility] Mean Cell Volume 88.1 82.9 - 93.1 fL [facility] Mean Cell Hemoglobin 29.2 27.5 - 32.1 pg [facility] Mean Cell Hemoglobin Concentration 33.1 32.0 - 35.7 g/dL [facility] Platelet 460(H) 145 - 357 x10(3)/mc L [facility] RDW Standard Deviation 60.3(H) 36.0 - 45.0 fL [facility] RDW coefficient of variation 18.9(H) 11.4 - 13.8 % [facility] Mean Platelet Volume 10.0 7.6 - 12.9 fL [facility] NRBC% auto 0.0 % [facility] NRBC Absolute 0.000 0.000 - 0.000 x10(3)/ L [facility] Blood 12/19/2022 3:46 AM EDT 12/19/2022 4:34 AM EDT Narrative Resulting Agency Comment Spec In Lab Vicente LEMOS HEMATOLOGY ORDERAB LES Performing Organization Address City/State/[facility] Co de Phone Number [facility] [place] [address] * (ABNORMAL) Basic Metabolic Panel (non-fasting) (12/19/2022 3:46 AM EDT) Glucose 65 65 - 199 mg/dL [facility] Comment:Diabetes: >=200 mg/d L plus symptoms Blood Urea Nitrogen 13 10 - 20 mg/dL [facility] Creatinine 0.51(L) 0.80 - 1.50 mg/dL [facility] Sodium 133(L) 135 - 145 mmol/L [facility] Potassium 3.5 3.5 - 5.0 mmol/L [facility] Comment: Please note: ??Patients with WBC >100,000 may have falsely elevated Potassium levels. ??For accurate Potassium quantification in these patients send serum separator tube (gold top) for subsequent determinations. ??Contact the Clinical Chemistry Laboratory if there are any questions. Chloride 98 98 - 107 mmol/L [facility] Carbon Dioxide 24 22 - 31 mmol/L [facility] Anion Gap 11 5 - 15 mmol/L [facility] Calcium 8.1(L) 8.5 - 10.5 mg/dL [facility] Est Glomerular Filtration Rate 106 >=60 mL/min/1. 73 m?? [facility] Comment: This patient's estimated GFR was calculated using the 2020 CKD-EPI equation. The estimated GFR can vary from the measured GFR by up to 30% in the absence of rapidly changing kidney function. Assessment of the estimated GFR is not appropriate when creatinine concentrations are rapidly changing. For clinical situations in which a more precise estimate of GFR is necessary, consider alternative methods of GFR estimation such as a 24-hour urine creatinine clearance. Assignment of CKD stage 1-5 for patients with an eGFR near the transition point between stages may be based on clinical assessment of muscle mass and symptoms in addition to eGFR. Blood 12/19/2022 3:46 AM EDT 12/19/2022 4:34 AM EDT Narrative Resulting Agency Comment Spec In Lab Libra Dykes MD CHEMISTRY ORDERABLES [facility] [place] [address] * (ABNORMAL) Differential, Automated (12/18/2022 3:36 AM EDT) Neutrophil % 76.5 % [facility] Neutrophil Absolute 9.55(H) 1.70 - 6.10 x10(3)/mc L [facility] Lymph % 7.8 % [facility] Lymphocytes Abs 1.0 0.9 - 3.2 x10(3)/mc L [facility] Monocyte % 12.7 % [facility] Monocyte Abs 1.6(H) 0.3 - 0.9 x10(3)/mc L [facility] Eos % 2.2 % [facility] Eosinophils Abs 0.3 0.0 - 0.4 x10(3)/mc L [facility] Basophil % 0.3 % [facility] Baso Absolute 0.0 0.0 - 0.1 x10(3)/mc L [facility] Immature Gran % 0.50 % [facility] Comment: Immature granulocytes(IG's)percentage and absolute count will include metamyelocytes, myelocytes, and promyelocytes. Blood smears from CBCs yielding IG's will be scanned manually for concordance. If this scan disagrees with the automated IG or if promyelocytes are noted, a manual differential will be performed. Immature Gran Absolute 0.06(H) 0.00 - 0.04 x10(3)/mc L [facility] Blood 12/18/2022 3:36 AM EDT 12/18/2022 4:28 AM EDT Narrative Resulting Agency Comment Spec In Lab Vicente LEMOS HEMATOLOGY ORDERAB LES [facility] [place] [address] * (ABNORMAL) Hemogram (12/18/2022 3:36 AM EDT) White Blood Cell 12.5(H) 4.0 - 9.5 x10(3)/mc L [facility] Red Blood Cell 3.31(L) 4.58 - 5.54 x10(6)/ L [facility] Hemoglobin 9.8(L) 13.7 - 16.5 g/dL [facility] Hematocrit 29.5(L) 40.5 - 48.5 % [facility] Mean Cell Volume 89.1 82.9 - 93.1 fL [facility] Mean Cell Hemoglobin 29.6 27.5 - 32.1 pg [facility] Mean Cell Hemoglobin Concentration 33.2 32.0 - 35.7 g/dL [facility] Platelet 424(H) 145 - 357 x10(3)/mc L [facility] RDW Standard Deviation 61.1(H) 36.0 - 45.0 fL [facility] RDW coefficient of variation 18.8(H) 11.4 - 13.8 % [facility] Mean Platelet Volume 10.3 7.6 - 12.9 fL [facility] NRBC% auto 0.0 % [facility] NRBC Absolute 0.000 0.000 - 0.000 x10(3)/mc L [facility] Blood 12/18/2022 3:36 AM EDT 12/18/2022 4:28 AM EDT Narrative Resulting Agency Comment Spec In Lab Vicente LEMOS HEMATOLOGY ORDERAB LES [facility] [address] * (ABNORMAL) Basic Metabolic Panel (non-fasting) (12/18/2022 3:36 AM EDT) Glucose 73 65 - 199 mg/dL [facility] Comment:Diabetes: >=200 mg/d L plus symptoms Blood Urea Nitrogen 14 10 - 20 mg/dL [facility] Creatinine 0.54(L) 0.80 - 1.50 mg/dL [facility] Sodium 133(L) 135 - 145 mmol/L [facility] Potassium 3.7 3.5 - 5.0 mmol/L [facility] Comment: Please note: ??Patients with WBC >100,000 may have falsely elevated Potassium levels. ??For accurate Potassium quantification in these patients send serum separator tube (gold top) for subsequent determinations. ??Contact the Clinical Chemistry Laboratory if there are any questions. Chloride 99 98 - 107 mmol/L [facility] Carbon Dioxide 23 22 - 31 mmol/L [facility] Anion Gap 11 5 - 15 mmol/L [facility] Calcium 8.2(L) 8.5 - 10.5 mg/dL [facility] Est Glomerular Filtration Rate 104 >=60 mL/min/1. 73 m?? [facility] Comment: This patient's estimated GFR was calculated using the 2020 CKD-EPI equation. The estimated GFR can vary from the measured GFR by up to 30% in the absence of rapidly changing kidney function. Assessment of the estimated GFR is not appropriate when creatinine concentrations are rapidly changing. For clinical situations in which a more precise estimate of GFR is necessary, consider alternative methods of GFR estimation such as a 24-hour urine creatinine clearance. Assignment of CKD stage 1-5 for patients with an eGFR near the transition point between stages may be based on clinical assessment of muscle mass and symptoms in addition to eGFR. Blood 12/18/2022 3:36 AM EDT 12/18/2022 4:28 AM EDT Narrative Resulting Agency Comment Spec In Lab Libra Dykes MD CHEMISTRY ORDERABLES Performing Organization Address [facility]/[place] [address] * Scan, Peripheral Blood (12/17/2022 3:55 AM EDT) Plat estimate Increased [facility] RBC Morphology Normal [facility] Blood 12/17/2022 3:55 AM EDT 12/17/2022 4:08 AM EDT Narrative Resulting Agency Comment Spec In Lab Vicente LEMOS HEMATOLOGY ORDERAB LES Performing Organization Address [facility] [place] [address] * (ABNORMAL) Differential, Automated (12/17/2022 3:55 AM EDT) [facility] Neutrophil % 83.2 % [facility] Neutrophil Absolute 13.37(H) 1.70 - 6.10 x10(3)/mc L [facility] Lymph % 4.8 % [facility] Lymphocytes Abs 0.8(L) 0.9 - 3.2 x10(3)/mc L [facility] Monocyte % 11.2 % [facility] Monocyte Abs 1.8(H) 0.3 - 0.9 x10(3)/mc L [facility] Eos % 0.0 % [facility] Eosinophils Abs 0.0 0.0 - 0.4 x10(3)/mc L [facility] Basophil % 0.2 % [facility] Baso Absolute 0.0 0.0 - 0.1 x10(3)/mc L [facility] Immature Gran % 0.60 % [facility] Comment: Immature granulocytes(IG's)percentage and absolute count will include metamyelocytes, myelocytes, and promyelocytes. Blood smears from CBCs yielding IG's will be scanned manually for concordance. If this scan disagrees with the automated IG or if promyelocytes are noted, a manual differential will be performed. Immature Gran Absolute 0.10(H) 0.00 - 0.04 x10(3)/mc L [facility] Blood 12/17/2022 3:55 AM EDT 12/17/2022 4:08 AM EDT Narrative Resulting Agency Comment Spec In Lab Vicente LEMOS HEMATOLOGY ORDERAB LES [facility] [place] [address] * (ABNORMAL) Hemogram (12/17/2022 3:55 AM EDT) White Blood Cell 16.1(H) 4.0 - 9.5 x10(3)/mc L [facility] Red Blood Cell 3.37(L) 4.58 - 5.54 x10(6)/mc L [facility] Hemoglobin 10.0(L) 13.7 - 16.5 g/dL [facility] Hematocrit 29.7(L) 40.5 - 48.5 % [facility] Mean Cell Volume 88.1 82.9 - 93.1 fL [facility] Mean Cell Hemoglobin 29.7 27.5 - 32.1 pg [facility] Mean Cell Hemoglobin Concentration 33.7 32.0 - 35.7 g/dL [facility] Platelet 374(H) 145 - 357 x10(3)/mc L [facility] RDW Standard Deviation 59.6(H) 36.0 - 45.0 fL [facility] RDW coefficient of variation 18.6(H) 11.4 - 13.8 % [facility] Mean Platelet Volume 10.0 7.6 - 12.9 fL [facility] NRBC% auto 0.1 % [facility] NRBC Absolute 0.020(H) 0.000 - 0.000 x10(3)/mc L [facility] Blood 12/17/2022 3:55 AM EDT 12/17/2022 4:08 AM EDT Narrative Resulting Agency Comment Spec In Lab Vicente LEMOS HEMATOLOGY ORDERAB LES Performing Organization Address [facility]/ZIP Co de Phone Number [facility] [place] [address] * (ABNORMAL) Basic Metabolic Panel (non-fasting) (12/17/2022 3:55 AM EDT) Glucose 85 65 - 199 mg/dL [facility] Comment:Diabetes: >=200 mg/d L plus symptoms Blood Urea Nitrogen 14 10 - 20 mg/dL [facility] Creatinine 0.59(L) 0.80 - 1.50 mg/dL [facility] Sodium 131(L) 135 - 145 mmol/L [facility] Potassium 3.9 3.5 - 5.0 mmol/L [facility] Comment: Please note: ??Patients with WBC >100,000 may have falsely elevated Potassium levels. ??For accurate Potassium quantification in these patients send serum separator tube (gold top) for subsequent determinations. ??Contact the Clinical Chemistry Laboratory if there are any questions. Chloride 98 98 - 107 mmol/L [facility] Carbon Dioxide 17(L) 22 - 31 mmol/L [facility] Anion Gap 16(H) 5 - 15 mmol/L [facility] Calcium 8.3(L) 8.5 - 10.5 mg/dL [facility] Est Glomerular Filtration Rate 101 >=60 mL/min/1. 73 m?? [facility] Comment: This patient's estimated GFR was calculated using the 2020 CKD-EPI equation. The estimated GFR can vary from the measured GFR by up to 30% in the absence of rapidly changing kidney function. Assessment of the estimated GFR is not appropriate when creatinine concentrations are rapidly changing. For clinical situations in which a more precise estimate of GFR is necessary, consider alternative methods of GFR estimation such as a 24-hour urine creatinine clearance. Assignment of CKD stage 1-5 for patients with an eGFR near the transition point between stages may be based on clinical assessment of muscle mass and symptoms in addition to eGFR. Blood 12/17/2022 3:55 AM EDT 12/17/2022 4:08 AM EDT Narrative Resulting Agency Comment Spec In Lab Libra Dykes MD CHEMISTRY ORDERABLES [facility] [place] [address] * Phosphorus (12/17/2022 3:55 AM EDT) Phosphorus 2.6 2.5 - 4.5 mg/dL [facility] Blood 12/17/2022 3:55 AM EDT 12/17/2022 4:08 AM EDT Narrative Resulting Agency Comment Spec In Lab Ford Bowie MD CHEMISTRY ORDERABLES Performing Organization Address [facility] Co de Phone Number [facility] [place] [address] * (ABNORMAL) Magnesium (12/17/2022 3:55 AM EDT) Magnesium 0.64(L) 0.69 - 1.07 mmol/L [facility] Blood 12/17/2022 3:55 AM EDT 12/17/2022 4:08 AM EDT Narrative Resulting Agency Comment Spec In Lab Ford Bowie MD CHEMISTRY ORDERABLES Performing Organization Address [facility] de Phone Number [facility] [place] [address] * XR Thoracic Spine 2 views (12/16/2022 5:06 PM EDT) Anatomical Region Laterality Modality N/A Digital Radiogra phy Impressions 12/16/2022 5:24 PM EDT 1. ??Limited visualization of the known T1-T3 fractures on radiograph. 2. ??Unchanged normal alignment of the visualized thoracic spine. Thank you for letting us participate in the care of this patient. ??If you are a health care provider and have any questions regarding this report, please contact the number below. ??For patients who have questions please contact the health long term care phlebotomist that requested your imaging first. ? Narrative 12/16/2022 5:24 PM EDT EXAMINATION: XR THORACIC SPINE 2 VIEWS CLINICAL HISTORY: UPRIGHT FILMS s/p fall with T1/T2 mild anterior wedge compression fractures, T3 superior endplate fracture. TECHNIQUE: 2 views of the thoracic spine COMPARISON: CT thoracic spine from November 30, 2022 Chest radiographs, December 14, 2022 FINDINGS: Limited visualization of upper thoracic spine on the lateral view due to overlying soft tissues and bones. The known T1-T3 fractures are not well seen on radiograph. Normal alignment of the rest of the thoracic spine. Vertebral body heights are preserved. Bilateral pleural effusions and retrocardiac atelectasis is noted, characterized on dedicated chest radiographs. Procedure Note Ludy Burns MD - 12/16/2022 EXAMINATION: XR THORACIC SPINE 2 VIEWS CLINICAL HISTORY: UPRIGHT FILMS s/p fall with T1/T2 mild anterior wedge compression fractures, T3 superior endplate fracture. TECHNIQUE: 2 views of the thoracic spine COMPARISON: CT thoracic spine from November 30, 2022 Chest radiographs, December 14, 2022 FINDINGS: Limited visualization of upper thoracic spine on the lateral view due to overlying soft tissues and bones. The known T1-T3 fractures are not wellseen on radiograph. Normal alignment of the rest of the thoracic spine. Vertebralbody heights are preserved. Bilateral pleural effusions and retrocardiacatelectasis is noted, characterized on dedicated chest radiographs. IMPRESSION 1. Limited visualization of the known T1-T3 fractures on radiograph. 2. Unchanged normal alignment of the visualized thoracic spine. Thank you for letting us participate in the care of this patient. If youare a health care provider and have any questions regarding this report,please contact the number below. For patients who have questions please contactthe health long term care phlebotomist that requested your imaging first. Libra Dykes MD IMG DX ORDERABLES * XR Pelvis Min 3 Views (12/16/2022 5:06 PM EDT) Anatomical Region Laterality Modality Pelvis N/A Digital Radiogra phy Impressions 12/16/2022 5:29 PM EDT Sacrum is not well visualized on radiograph and is therefore not evaluated. Thank you for letting us participate in the care of this patient. ??If you are a health care provider and have any questions regarding this report, please contact the number below. ??For patients who have questions please contact the health long term care phlebotomist that requested your imaging first. ? Narrative 12/16/2022 5:29 PM EDT EXAMINATION: XR PELVIS MIN 3 VIEWS CLINICAL HISTORY: Needs post mob films to eval left sacral ala fx TECHNIQUE: 3 views of the pelvis COMPARISON: Pelvic CT, December 08, 2022 FINDINGS: Diffuse osseous demineralization. There is limited visualization of the sacrum and coccyx and medial aspect of the iliacs, due to overlying bowel gas. The known left sacral ala fracture is no acute appreciated on radiograph. No displaced fracture of the superior inferior pubic rami. Normal alignment of the bilateral hip joints. Procedure Note Ludy Burns MD - 12/16/2022 EXAMINATION: XR PELVIS MIN 3 VIEWS CLINICAL HISTORY: Needs post mob films to eval left sacral ala fx TECHNIQUE: 3 views of the pelvis COMPARISON: Pelvic CT, December 08, 2022 FINDINGS: Diffuse osseous demineralization. There is limited visualization of thesacrum and coccyx and medial aspect of the iliacs, due to overlying bowel gas.The known left sacral ala fracture is no acute appreciated on radiograph. No displaced fracture of the superior inferior pubic rami. Normal alignmentof the bilateral hip joints. IMPRESSION Sacrum is not well visualized on radiograph and is therefore notevaluated. Thank you for letting us participate in the care of this patient. If youare a health care provider and have any questions regarding this report,please contact the number below. For patients who have questions please contactthe health long term care phlebotomist that requested your imaging first. Libra Dykes MD IMG DX ORDERABLES * (ABNORMAL) Differential, Automated (12/16/2022 3:59 AM EDT) Neutrophil % 85.4 % [facility] Neutrophil Absolute 10.38(H) 1.70 - 6.10 x10(3)/mc L [facility] Lymph % 5.3 % [facility] Lymphocytes Abs 0.6(L) 0.9 - 3.2 x10(3)/mc L [facility] Monocyte % 8.3 % [facility] Monocyte Abs 1.0(H) 0.3 - 0.9 x10(3)/mc L [facility] Eos % 0.2 % [facility] Eosinophils Abs 0.0 0.0 - 0.4 x10(3)/mc L [facility] Basophil % 0.2 % [facility] Baso Absolute 0.0 0.0 - 0.1 x10(3)/mc L [facility] Immature Gran % 0.60 % [facility] Comment: Immature granulocytes(IG's)percentage and absolute count will include metamyelocytes, myelocytes, and promyelocytes. Blood smears from CBCs yielding IG's will be scanned manually for concordance. If this scan disagrees with the automated IG or if promyelocytes are noted, a manual differential will be performed. Immature Gran Absolute 0.07(H) 0.00 - 0.04 x10(3)/mc L [facility] Blood 12/16/2022 3:59 AM EDT 12/16/2022 4:14 AM EDT Narrative Resulting Agency Comment Spec In Lab Vicente LEMOS HEMATOLOGY ORDERAB LES Performing Organization Address City/[facility]/ZIP Co de Phone Number [facility] [place] [address] * (ABNORMAL) Hemogram (12/16/2022 3:59 AM EDT) White Blood Cell 12.2(H) 4.0 - 9.5 x10(3)/mc L [facility] Red Blood Cell 3.81(L) 4.58 - 5.54 x10(6)/mc L [facility] Hemoglobin 11.3(L) 13.7 - 16.5 g/dL [facility] Hematocrit 33.7(L) 40.5 - 48.5 % [facility] Mean Cell Volume 88.5 82.9 - 93.1 fL [facility] Mean Cell Hemoglobin 29.7 27.5 - 32.1 pg [facility] Mean Cell Hemoglobin Concentration 33.5 32.0 - 35.7 g/dL [facility] Platelet 392(H) 145 - 357 x10(3)/mc L [facility] RDW Standard Deviation 57.9(H) 36.0 - 45.0 fL [facility] RDW coefficient of variation 18.3(H) 11.4 - 13.8 % [facility] Mean Platelet Volume 9.3 7.6 - 12.9 fL [facility] NRBC% auto 0.0 % [facility] NRBC Absolute 0.000 0.000 - 0.000 x10(3)/mc L [facility] Blood 12/16/2022 3:59 AM EDT 12/16/2022 4:14 AM EDT Narrative Resulting Agency Comment Spec In Lab Vicente LEMOS HEMATOLOGY ORDERAB LES Performing Organization Address City/[facility] Co de Phone Number [facility] [place] [address] * (ABNORMAL) Basic Metabolic Panel (non-fasting) (12/16/2022 3:59 AM EDT) Glucose 105 65 - 199 mg/dL [facility] Comment:Diabetes: >=200 mg/d L plus symptoms Blood Urea Nitrogen 15 10 - 20 mg/dL [facility] Creatinine 0.51(L) 0.80 - 1.50 mg/dL [facility] Sodium 132(L) 135 - 145 mmol/L [facility] Potassium 3.9 3.5 - 5.0 mmol/L [facility] Comment: Please note: ??Patients with WBC >100,000 may have falsely elevated Potassium levels. ??For accurate Potassium quantification in these patients send serum separator tube (gold top) for subsequent determinations. ??Contact the Clinical Chemistry Laboratory if there are any questions. Chloride 99 98 - 107 mmol/L [facility] Carbon Dioxide 21(L) 22 - 31 mmol/L [facility] Anion Gap 12 5 - 15 mmol/L [facility] Calcium 8.6 8.5 - 10.5 mg/dL [facility] Est Glomerular Filtration Rate 106 >=60 mL/min/1. 73 m?? [facility] Comment: This patient's estimated GFR was calculated using the 2020 CKD-EPI equation. The estimated GFR can vary from the measured GFR by up to 30% in the absence of rapidly changing kidney function. Assessment of the estimated GFR is not appropriate when creatinine concentrations are rapidly changing. For clinical situations in which a more precise estimate of GFR is necessary, consider alternative methods of GFR estimation such as a 24-hour urine creatinine clearance. Assignment of CKD stage 1-5 for patients with an eGFR near the transition point between stages may be based on clinical assessment of muscle mass and symptoms in addition to eGFR. Blood 12/16/2022 3:59 AM EDT 12/16/2022 4:14 AM EDT Narrative Resulting Agency Comment Spec In Lab Libra Dykes MD CHEMISTRY ORDERABLES [facility] [place] [address] * XR Cervical Spine 2 or 3 Views (12/15/2022 10:52 PM EDT) Anatomical Region Laterality Modality C-spine N/A Digital Radiogra phy Impressions 12/16/2022 10:27 AM EDT 1. ??Unable to evaluate C7 and T1 2. ??No vertebral body height loss 3. 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 4. ??Decreased bone mineralization. Consider DXA characterization if indicated. Thank you for letting us participate in the care of this patient. ??If you are a health care provider and have any questions regarding this report, please contact the number below. ??For patients who have questions please contact the health long term care phlebotomist that requested your imaging first. ? Narrative 12/16/2022 10:27 AM EDT EXAMINATION: XR CERVICAL SPINE 2 OR 3 VIEWS CLINICAL HISTORY: C spine, , entered by ordering service TECHNIQUE: 3 views cervical spine, AP lateral and swimmer's view COMPARISON: CT cervical spine, December 08, 2022. FINDINGS: C7-T1 are obscured by overlapping structures on both lateral and swimmer's view. Vertebral bodies: No vertebral body height loss. Osteophytes arise from vertebral body, facet and uncovertebral joints. Disk spaces: Narrowed C3-4 C4-5 seen at C5-6 disc spaces. Alignment: No subluxation Loss of normal cervical lordosis. Soft tissues: No prevertebral soft tissue swelling RIGHT clavicle-fixation hardware in clavicle is partially included. Procedure Note Kyra Clark MD - 12/16/2022 EXAMINATION: XR CERVICAL SPINE 2 OR 3 VIEWS CLINICAL HISTORY: C spine, , entered by ordering service TECHNIQUE: 3 views cervical spine, AP lateral and swimmer's view COMPARISON: CT cervical spine, December 08, 2022. FINDINGS: C7-T1 are obscured by overlapping structures on both lateral and swimmer'sview. Vertebral bodies: No vertebral body height loss. Osteophytes arise from vertebral body, facet and uncovertebral joints. Disk spaces: Narrowed C3-4 C4-5 seen at C5-6 disc spaces. Alignment: No subluxation Loss of normal cervical lordosis. Soft tissues: No prevertebral soft tissue swelling RIGHT clavicle-fixation hardware in clavicle is partially included. IMPRESSION 1. Unable to evaluate C7 and T1 2. No vertebral body height loss 3. Spondylosis of cervical spine with narrowed disc space andosteophyte formation. 4. Decreased bone mineralization. Consider DXA characterization ifindicated. Thank you for letting us participate in the care of this patient. If youare a health care provider and have any questions regarding this report,please contact the number below. For patients who have questions please contactthe health long term care phlebotomist that requested your imaging first. Kristen Aguero APRN IMG DX ORDERABL ES * IR Arteriogram/Embolization - Splenic (12/15/2022 3:13 PM EDT) Anatomical Region Laterality Modality X-Ray Angiograph y Addenda Addendum by Peter Munoz MD on 12/24/2022 2:41 PM EDT Images from the original result were not included. IR PROCEDURE NOTE Procedure: Splenic arteriography and occlusion of the splenic artery with coils and plugs. Indication for Procedure: Per Dr. Strickland, 77 y.o. male who is hard of hearing with recent history of multiple falls and splenic laceration, pt fell from a ladder on 11/30, at which time he was admitted to [facility] and subsequently discharged. Small splenic contusion noted at that time. Re-presented on 12/08 following GLF with forehead laceration (s/p suture repair) and high grade splenic laceration. [with hematoma on CT] Procedure events and findings: The patient was positioned supine on the procedure table and the right groin prepped and draped in the usual sterile fashion, maximum sterile barrier technique was used throughout. Due to the painful nature of the procedure, patient received split doses of intravenous fentanyl and versed from the IR nurse while pulse, pressure, and oxygen saturation were continuously monitored. The right common femoral artery was accessed using micropuncture technique under ultrasound guidance. ??A 21 ga needle was advanced into the common femoral artery. ??An .018 guidewire was placed, and over this a 4 Fr sheath advanced. ??Wire and inner dilator were removed and through this a .035 ??J curve guidewire was advanced, 4 Fr sheath exchanged for a 5 Fr sheath. A 5 Fr C2 catheter was advanced into the mid-abdominal aorta, the celiac artery selected and a selective arteriogram performed. ??With the aid of a Glidewire the C2 catheter was directed into the splenic artery. ??Selective splenic arteriogram was performed which showed no active extravasation. ??A guide wire was placed and the C2 catheter exchanged for an angled catheter. ??An 8mm Amplatz plug was then placed. ??After 5-minute wait repeat splenic arteriography showed flow past the plug. ??Two 4 mm to 8 mm Vortex coils were placed in contact with the plug. ??Repeat splenic arteriography still showed flow beyond the plug and coils. ??Several Gelfoam pledgets were injected through the catheter in hopes of completing occlusion of the splenic artery. ?Repeat splenic arteriography however showed persistent flow. ??A second 8 mm Amplatzer plug was then placed overlapping the coils. ??Repeat selective splenic arteriogram showed occlusion of the splenic artery. ??Catheter was removed. Arteriography via the sheath in the groin was performed for imaging of the right external iliac and common femoral arteries. ??No stenoses were seen. ?? Sheath was then removed and hemostasis achieved with the use of a Mynx closure device plus manual compression. Medications: Fentanyl 100 mcg IV, Versed 2mg IV, 1% Lidocaine <10ccs subcutaneous. Est Blood Loss: <5cc. Complications: ??No immediate. Impression: 1. ??Splenic arteriography without evidence of hemorrhage. 2. 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 3. ??Mynx closure device placed at right common femoral artery access site. Resident/Fellow: ??Dr. Strickland. Attending: I, Dr. Munoz was present throughout this procedure. ??I was present during the intraservice time as documented by the IR Nurse. ? Narrative 12/15/2022 3:05 PM EDT Images from the original result were not included. IR PROCEDURE NOTE ?? Procedure: Splenic arteriography and occlusion of the splenic artery with coils and plugs. ?? Indication for Procedure: Per Dr. Strickland, 77 y.o.??male??who is hard of hearing with recent history of multiple falls and splenic laceration, pt??fell from a ladder on 11/30, at which time he was admitted to [facility] and subsequently discharged. Small splenic contusion noted at that time. Re-presented on 12/08 following GLF with forehead laceration (s/p suture repair) and high grade splenic laceration. [with hematoma on CT] ?? Procedure events and findings: The patient was positioned??supine??on the procedure table and the right groin prepped and draped in the usual sterile fashion, maximum sterile barrier technique was used throughout. ??The right??common femoral artery was accessed using micropuncture technique under ultrasound guidance. ??A 21 ga needle was advanced into the common femoral artery. ??An .018 guidewire was placed, and over this a 4 Fr sheath advanced. ??Wire and inner dilator were removed and through this a .035 ??J curve guidewire was advanced, 4 Fr sheath exchanged for a 5 Fr sheath. ?? A 5 Fr??C2??catheter was advanced into the mid-abdominal aorta,??the celiac artery selected and a selective arteriogram performed. ??With the aid of a Glidewire the C2 catheter was directed into the splenic artery. ??Selective splenic arteriogram was performed which showed no active extravasation. ??A guide wire was placed and the C2 catheter exchanged for an angled catheter. ??An 8mm Amplatz plug was then placed. ??After 5-minute wait repeat splenic arteriography showed flow past the plug. ??Two 4 mm to 8 mm Vortex coils were placed in contact with the plug. ??Repeat splenic arteriography still showed flow beyond the plug and coils. ??Several Gelfoam pledgets were injected through the catheter in hopes of completing occlusion of the splenic artery. ?Repeat splenic arteriography however showed persistent flow. ??A second 8 mm Amplatzer plug was then placed overlapping the coils. ??Repeat selective splenic arteriogram showed occlusion of the splenic artery. ??Catheter was removed. ?? Arteriography via the sheath in the groin??was performed for imaging of the??right??external iliac and common femoral arteries. ??No stenoses were seen. ??Sheath was then removed and hemostasis achieved with the use of a Mynx closure device plus manual compression. ?? Medications: Fentanyl 100 mcg IV, Versed 2mg IV, 1% Lidocaine <10ccs subcutaneous. ?? Est Blood Loss: <5cc. ?? Complications: ??No immediate. ?? Impression: ?? 1. ??Splenic arteriography without evidence of hemorrhage. ?? 2. 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 ?? 3. ??Mynx closure device placed at right common femoral artery access site. ?? Resident/Fellow: ??Dr. Strickland. ?? Attending: I, Dr. Munoz was present throughout this procedure. ??I was present during the intraservice time as documented by the IR Nurse.? Libra Dykes MD [facility] ORDERABLES * (ABNORMAL) Differential, Automated (12/15/2022 10:30 AM EDT) Neutrophil % 82.3 % [facility] Neutrophil Absolute 5.21 1.70 - 6.10 x10(3)/mc L [facility] Lymph % 7.9 % [facility] Lymphocytes Abs 0.5(L) 0.9 - 3.2 x10(3)/mc L [facility] Monocyte % 7.7 % [facility] Monocyte Abs 0.5 0.3 - 0.9 x10(3)/mc L [facility] Eos % 1.1 % [facility] Eosinophils Abs 0.1 0.0 - 0.4 x10(3)/mc L [facility] Basophil % 0.5 % [facility] Baso Absolute 0.0 0.0 - 0.1 x10(3)/mc L [facility] Immature Gran % 0.50 % [facility] Comment: Immature granulocytes(IG's)percentage and absolute count will include metamyelocytes, myelocytes, and promyelocytes. Blood smears from CBCs yielding IG's will be scanned manually for concordance. If this scan disagrees with the automated IG or if promyelocytes are noted, a manual differential will be performed. Immature Gran Absolute 0.03 0.00 - 0.04 x10(3)/mc L [facility] Blood 12/15/2022 10:3 0 AM EDT 12/15/2022 10:43 AM EDT Narrative Resulting Agency Comment Spec In Lab Vicente LEMOS HEMATOLOGY ORDERAB LES [facility] [place] [address] * (ABNORMAL) Hemogram (12/15/2022 10:30 AM EDT) White Blood Cell 6.3 4.0 - 9.5 x10(3)/mc L [facility] Red Blood Cell 3.44(L) 4.58 - 5.54 x10(6)/ L [facility] Hemoglobin 10.0(L) 13.7 - 16.5 g/dL [facility] Hematocrit 30.2(L) 40.5 - 48.5 % [facility] Mean Cell Volume 87.8 82.9 - 93.1 fL [facility] Mean Cell Hemoglobin 29.1 27.5 - 32.1 pg [facility] Mean Cell Hemoglobin Concentration 33.1 32.0 - 35.7 g/dL [facility] Platelet 338 145 - 357 x10(3)/mc L [facility] RDW Standard Deviation 55.8(H) 36.0 - 45.0 fL [facility] RDW coefficient of variation 17.9(H) 11.4 - 13.8 % [facility] Mean Platelet Volume 9.1 7.6 - 12.9 fL [facility] NRBC% auto 0.0 % [facility] NRBC Absolute 0.000 0.000 - 0.000 x10(3)/mc L [facility] Blood 12/15/2022 10:3 0 AM EDT 12/15/2022 10:43 AM EDT Narrative Resulting Agency Comment Spec In Lab Vicente LEMOS HEMATOLOGY ORDERAB LES [facility] [address] * (ABNORMAL) Basic Metabolic Panel (non-fasting) (12/15/2022 10:30 AM EDT) Glucose 96 65 - 199 mg/dL [facility] Comment:Diabetes: >=200 mg/d L plus symptoms Blood Urea Nitrogen 14 10 - 20 mg/dL [facility] Creatinine 0.51(L) 0.80 - 1.50 mg/dL [facility] Sodium 134(L) 135 - 145 mmol/L [facility] Potassium 3.8 3.5 - 5.0 mmol/L [facility] Comment: Please note: ??Patients with WBC >100,000 may have falsely elevated Potassium levels. ??For accurate Potassium quantification in these patients send serum separator tube (gold top) for subsequent determinations. ??Contact the Clinical Chemistry Laboratory if there are any questions. Chloride 101 98 - 107 mmol/L [facility] Carbon Dioxide 27 22 - 31 mmol/L [facility] Anion Gap 6 5 - 15 mmol/L [facility] Calcium 8.8 8.5 - 10.5 mg/dL [facility] Est Glomerular Filtration Rate 106 >=60 mL/min/1. 73 m?? [facility] Comment: This patient's estimated GFR was calculated using the 2020 CKD-EPI equation. The estimated GFR can vary from the measured GFR by up to 30% in the absence of rapidly changing kidney function. Assessment of the estimated GFR is not appropriate when creatinine concentrations are rapidly changing. For clinical situations in which a more precise estimate of GFR is necessary, consider alternative methods of GFR estimation such as a 24-hour urine creatinine clearance. Assignment of CKD stage 1-5 for patients with an eGFR near the transition point between stages may be based on clinical assessment of muscle mass and symptoms in addition to eGFR. Blood 12/15/2022 10:3 0 AM EDT 12/15/2022 10:43 AM EDT Narrative Resulting Agency Comment Spec In Lab Libra Dykes MD CHEMISTRY ORDERABLES [facility] [place] [address] * XR Chest PA & Lateral (Generic) (12/14/2022 7:44 PM EDT) Anatomical Region Laterality Modality Chest N/A Digital Radiogra phy Impressions 12/14/2022 8:50 PM EDT 1. ??LEFT pleural effusion and LEFT retrocardiac hazy opacity likely contusion given history of recent trauma. The size of the opacity may have increased. 2. ??Mildly displaced RIGHT lateral seventh rib fracture of indeterminate age. 3. ??No pneumothorax. Thank you for letting us participate in the care of this patient. ??If you are a health care provider and have any questions regarding this report, please contact the number below. ??For patients who have questions please contact the health long term care phlebotomist that requested your imaging first. ? Narrative 12/14/2022 8:50 PM EDT EXAMINATION: XR CHEST PA AND LATERAL (GENERIC) CLINICAL HISTORY: S/P fall, fractured ribs, , entered by ordering service TECHNIQUE: PA and lateral views, 2 view[s] COMPARISON: Outside Chest CT, December 08, 2022. FINDINGS: Pleura: No pneumothorax, blunted LEFT CP lobe represents presence of effusion, similar to recent CT. Lungs: New LEFT retrocardiac groundglass opacity with obscured LEFT diaphragm. Findings represent any combinations of enlarging effusion and contusion. Cardiomediastinal contour: Normal Bones: no vertebral body height loss RIGHT clavicle-partially included fixation hardware RIGHT seventh rib-displaced fracture. Procedure Note Kyra Clark MD - 12/14/2022 EXAMINATION: XR CHEST PA AND LATERAL (GENERIC) CLINICAL HISTORY: S/P fall, fractured ribs, , entered by orderingservice TECHNIQUE: PA and lateral views, 2 view[s] COMPARISON: Outside Chest CT, December 08, 2022. FINDINGS: Pleura: No pneumothorax, blunted LEFT CP lobe represents presence ofeffusion, similar to recent CT. Lungs: New LEFT retrocardiac groundglass opacity with obscured LEFTdiaphragm. Findings represent any combinations of enlarging effusion and contusion. Cardiomediastinal contour: Normal Bones: no vertebral body height loss RIGHT clavicle-partially included fixation hardware RIGHT seventh rib-displaced fracture. IMPRESSION 1. LEFT pleural effusion and LEFT retrocardiac hazy opacity likelycontusion given history of recent trauma. The size of the opacity may haveincreased. 2. Mildly displaced RIGHT lateral seventh rib fracture of indeterminateage. 3. No pneumothorax. Thank you for letting us participate in the care of this patient. If youare a health care provider and have any questions regarding this report,please contact the number below. For patients who have questions please contactthe health long term care phlebotomist that requested your imaging first. Libra Dykes MD IMG DX ORDERABLES * (ABNORMAL) Differential, Automated (12/14/2022 6:02 PM EDT) Neutrophil % 84.4 % [facility] Neutrophil Absolute 6.14(H) 1.70 - 6.10 x10(3)/mc L [facility] Lymph % 7.4 % [facility] Lymphocytes Abs 0.5(L) 0.9 - 3.2 x10(3)/mc L [facility] Monocyte % 7.4 % [facility] Monocyte Abs 0.5 0.3 - 0.9 x10(3)/mc L [facility] Eos % 0.1 % [facility] Eosinophils Abs 0.0 0.0 - 0.4 x10(3)/mc L [facility] Basophil % 0.3 % [facility] Baso Absolute 0.0 0.0 - 0.1 x10(3)/mc L [facility] Immature Gran % 0.40 % [facility] Comment: Immature granulocytes(IG's)percentage and absolute count will include metamyelocytes, myelocytes, and promyelocytes. Blood smears from CBCs yielding IG's will be scanned manually for concordance. If this scan disagrees with the automated IG or if promyelocytes are noted, a manual differential will be performed. Immature Gran Absolute 0.03 0.00 - 0.04 x10(3)/mc L [facility] Blood 12/14/2022 6:02 PM EDT 12/14/2022 6:16 PM EDT Narrative Resulting Agency Comment Spec In Lab Vicente LEMOS HEMATOLOGY ORDERAB LES [facility] [place] [address] * (ABNORMAL) Hemogram (12/14/2022 6:02 PM EDT) White Blood Cell 7.3 4.0 - 9.5 x10(3)/mc L [facility] Red Blood Cell 3.45(L) 4.58 - 5.54 x10(6)/mc L [facility] Hemoglobin 10.1(L) 13.7 - 16.5 g/dL [facility] Hematocrit 29.9(L) 40.5 - 48.5 % [facility] Mean Cell Volume 86.7 82.9 - 93.1 fL [facility] Mean Cell Hemoglobin 29.3 27.5 - 32.1 pg [facility] Mean Cell Hemoglobin Concentration 33.8 32.0 - 35.7 g/dL [facility] Platelet 328 145 - 357 x10(3)/mc L [facility] RDW Standard Deviation 55.5(H) 36.0 - 45.0 fL [facility] RDW coefficient of variation 17.8(H) 11.4 - 13.8 % [facility] Mean Platelet Volume 8.9 7.6 - 12.9 fL [facility] NRBC% auto 0.0 % [facility] NRBC Absolute 0.000 0.000 - 0.000 x10(3)/mc L [facility] Blood 12/14/2022 6:02 PM EDT 12/14/2022 6:16 PM EDT Narrative Resulting Agency Comment Spec In Lab Vicente LEMOS [place] [address] * (ABNORMAL) Differential, Automated (12/14/2022 4:12 AM EDT) Neutrophil % 81.1 % [facility] Neutrophil Absolute 4.56 1.70 - 6.10 x10(3)/mc L [facility] Lymph % 10.1 % [facility] Lymphocytes Abs 0.6(L) 0.9 - 3.2 x10(3)/mc L [facility] Monocyte % 7.6 % [facility] Monocyte Abs 0.4 0.3 - 0.9 x10(3)/mc L [facility] Eos % 0.5 % [facility] Eosinophils Abs 0.0 0.0 - 0.4 x10(3)/mc L [facility] Basophil % 0.2 % [facility] Baso Absolute 0.0 0.0 - 0.1 x10(3)/mc L [facility] Immature Gran % 0.50 % [facility] Comment: Immature granulocytes(IG's)percentage and absolute count will include metamyelocytes, myelocytes, and promyelocytes. Blood smears from CBCs yielding IG's will be scanned manually for concordance. If this scan disagrees with the automated IG or if promyelocytes are noted, a manual differential will be performed. Immature Gran Absolute 0.03 0.00 - 0.04 x10(3)/mc L [facility] Blood 12/14/2022 4:12 AM EDT 12/14/2022 4:28 AM EDT Narrative Resulting Agency Comment Spec In Lab Ez Bowser MD HEMATOLOGY ORDERABLE S [facility] [place] [address] * (ABNORMAL) Hemogram (12/14/2022 4:12 AM EDT) White Blood Cell 5.6 4.0 - 9.5 x10(3)/mc L [facility] Red Blood Cell 3.21(L) 4.58 - 5.54 x10(6)/mc L [facility] Hemoglobin 9.4(L) 13.7 - 16.5 g/dL [facility] Hematocrit 28.3(L) 40.5 - 48.5 % [facility] Mean Cell Volume 88.2 82.9 - 93.1 fL [facility] Mean Cell Hemoglobin 29.3 27.5 - 32.1 pg [facility] Mean Cell Hemoglobin Concentration 33.2 32.0 - 35.7 g/dL [facility] Platelet 292 145 - 357 x10(3)/mc L [facility] RDW Standard Deviation 56.1(H) 36.0 - 45.0 fL [facility] RDW coefficient of variation 17.9(H) 11.4 - 13.8 % [facility] Mean Platelet Volume 8.7 7.6 - 12.9 fL [facility] NRBC% auto 0.0 % [facility] NRBC Absolute 0.000 0.000 - 0.000 x10(3)/mc L [facility] Blood 12/14/2022 4:12 AM EDT 12/14/2022 4:28 AM EDT Narrative Resulting Agency Comment Spec In Lab Ez Bowser MD HEMATOLOGY ORDERABLE S Performing Organization Address City/[facility]/ZIP Co de Phone Number [facility] [place] [address] * (ABNORMAL) Magnesium (12/14/2022 4:12 AM EDT) Magnesium 0.61(L) 0.69 - 1.07 mmol/L [facility] Blood 12/14/2022 4:12 AM EDT 12/14/2022 4:28 AM EDT Narrative Resulting Agency Comment Spec In Lab Libra Dykes MD CHEMISTRY ORDERABLES Performing Organization Address [facility] Co de Phone Number [facility] [place] [address] * APTT (12/14/2022 4:12 AM EDT) Partial Thromboplastin Time 35 25 - 37 sec [facility] Comment: The PTT is NOT appropriate for heparin monitoring. Use the Anti-Xa level for heparin monitoring (HEP UFH) or LMWH monitoring (HEP LMW). A PTT less than 37 seconds generally indicates adequate hemostasis. Blood 12/14/2022 4:12 AM EDT 12/14/2022 4:28 AM EDT Narrative Resulting Agency Comment Spec In Lab Libra Dykes MD HEMATOLOGY ORDERABLE S Performing Organization Address [facility] Co de Phone Number [facility] [place] [address] * (ABNORMAL) Prothrombin Time (12/14/2022 4:12 AM EDT) Prothrombin Time 13.1(H) 9.4 - 12.5 sec [facility] International Normalization Ratio 1.1 [facility] Comment: An INR <2.0 indicates adequate procoagulant activity for hemostasis in most patients without underlying bleeding disorders, though the INR may not adequately reflect hemostatic capacity in patients with liver disease and synthetic impairment. The recommended target INR range for therapeutic anticoagulation is 2.0 ? 3.0 for most applications, though lower and higher ranges may be appropriate depending on clinical circumstances. Blood 12/14/2022 4:12 AM EDT 12/14/2022 4:28 AM EDT Narrative Resulting Agency Comment Spec In Lab Libra Dykes MD HEMATOLOGY ORDERABLE S Performing Organization Address City/[facility] Co de Phone Number [facility] [place] [address] * (ABNORMAL) Basic Metabolic Panel (non-fasting) (12/14/2022 4:12 AM EDT) Glucose 98 65 - 199 mg/dL [facility] Comment:Diabetes: >=200 mg/d L plus symptoms Blood Urea Nitrogen 10 10 - 20 mg/dL [facility] Creatinine 0.50(L) 0.80 - 1.50 mg/dL [facility] Sodium 133(L) 135 - 145 mmol/L [facility] Potassium 3.8 3.5 - 5.0 mmol/L [facility] Comment: Please note: ??Patients with WBC >100,000 may have falsely elevated Potassium levels. ??For accurate Potassium quantification in these patients send serum separator tube (gold top) for subsequent determinations. ??Contact the Clinical Chemistry Laboratory if there are any questions. Chloride 97(L) 98 - 107 mmol/L [facility] Carbon Dioxide 27 22 - 31 mmol/L [facility] Anion Gap 9 5 - 15 mmol/L [facility] Calcium 8.6 8.5 - 10.5 mg/dL [facility] Est Glomerular Filtration Rate 106 >=60 mL/min/1. 73 m?? [facility] Comment: This patient's estimated GFR was calculated using the 2020 CKD-EPI equation. The estimated GFR can vary from the measured GFR by up to 30% in the absence of rapidly changing kidney function. Assessment of the estimated GFR is not appropriate when creatinine concentrations are rapidly changing. For clinical situations in which a more precise estimate of GFR is necessary, consider alternative methods of GFR estimation such as a 24-hour urine creatinine clearance. Assignment of CKD stage 1-5 for patients with an eGFR near the transition point between stages may be based on clinical assessment of muscle mass and symptoms in addition to eGFR. Blood 12/14/2022 4:12 AM EDT 12/14/2022 4:28 AM EDT Narrative Resulting Agency Comment Spec In Lab Libra Dykes MD CHEMISTRY ORDERABLES Performing Organization Address [facility]/ZIP Co de Phone Number [facility] [place] [address] * Request For 2nd Read CT Head And Spine (12/13/2022 10:56 PM EDT) Anatomical Region Laterality Modality Head, C-spine, T-spine, L-spine SO Impressions 12/14/2022 9:[address] head: Thin right subdural hematoma as described, with a new small component in the right lateral frontal region. CT face: No acute facial bone fracture. CT cervical spine: 1. ??T1-T3 vertebral body fractures as described. 2. ??No acute fracture or subluxation of the cervical spine. Thank you for letting us participate in the care of this patient. ??If you are a health care provider and have any questions regarding this report, please contact the number below. ??For patients who have questions please contact the health long term care phlebotomist that requested your imaging first. ? Electronically signed by: Nancy Arguello MD, [facility] ([phone]), at 12/14/2022 9:22 AM Narrative 12/14/2022 9:22 AM EDT EXAMINATION: REQUEST FOR 2ND READ CT HEAD AND SPINE CLINICAL HISTORY: s/p fall from ladder; Sending Institution [facility]; Date of exam 20221208; I believe a reinterpretation of this exam may alter care of Patient. Yes TECHNIQUE: CT head, face and cervical spine were obtained at [facility] on 12/08/2022 COMPARISON: CT head 11/30/2022 FINDINGS: CT head: There is a similar small amount extending along the right side of the tentorium and posterior falx cerebri with a new 3 mm thick component along the right lateral frontal region. The small amount of right parietal subarachnoid hemorrhage noted previously has resolved. No parenchymal hemorrhage. No mass, mass effect, hydrocephalus, midline shift, or evidence of large acute infarction. Mild age-appropriate volume loss with mild prominence of the subarachnoid spaces and ventricular system. No acute osseous abnormality. CT face: No facial bone fracture. Both temporomandibular joints are normal in location. The paranasal sinuses are clear. CT cervical spine: No acute fracture or subluxation in the cervical spine. There is a compression fracture of the [...] body height. The posterior cortex is intact. Procedure Note Nancy Arguello MD - 12/14/2022 EXAMINATION: REQUEST FOR 2ND READ CT HEAD AND SPINE CLINICAL HISTORY: s/p fall from ladder; Sending Institution [facility]; Date ofexam 20221208; I believe a reinterpretation of this exam may alter care ofPatient. Yes TECHNIQUE: CT head, face and cervical spine were obtained at [facility] on 12/08/2022 COMPARISON: CT head 11/30/2022 FINDINGS: CT head: There is a similar small amount extending along the right side of thetentorium and posterior falx cerebri with a new 3 mm thick component along theright lateral frontal region. The small amount of right parietal subarachnoid hemorrhage noted previously has resolved. No parenchymal hemorrhage. [place], mass effect, hydrocephalus, midline shift, or evidence of large acute infarction. Mild age-appropriate volume loss with mild prominence of the subarachnoid spaces and ventricular system. No acute osseous abnormality. CT face: No facial bone fracture. Both temporomandibular joints are normal inlocation. The paranasal sinuses are clear. CT cervical spine: No acute fracture or subluxation in the cervical spine. There is a compression fracture of the [...] vertebral bodyheight. The posterior cortex is intact. IMPRESSION CT head: Thin right subdural hematoma as described, with a new small component inthe right lateral frontal region. CT face: No acute facial bone fracture. CT cervical spine: 1. T1-T3 vertebral body fractures as described. 2. No acute fracture or subluxation of the cervical spine. Thank you for letting us participate in the care of this patient. If youare a health care provider and have any questions regarding this report,please contact the number below. For patients who have questions please contactthe health long term care phlebotomist that requested your imaging first. Electronically signed by: Nancy Arguello MD, [facility]([phone]), at 12/14/2022 9:22 AM Libra Dykes MD IMG OUTSIDE INTERPRE TATION ORDERABLES * Request For 2nd Read CT Head [...] who have questions please contact the health long term care phlebotomist that requested your imaging first. ? Electronically signed by: Nancy Arguello MD, [facility] ([phone]), at 12/14/2022 10:32 AM Narrative 12/14/2022 10:32 AM EDT EXAMINATION: REQUEST FOR 2ND READ CT HEAD CLINICAL HISTORY: s/p fall from ladder; Sending Institution [facility]; Date of exam 20221208; I believe a reinterpretation of this exam may alter care of Patient. Yes TECHNIQUE: CT scan of the head was obtained at [facility] on 12/08/2022 COMPARISON: CT head 12/08/2022 at [...] HISTORY: s/p fall from ladder; Sending Institution [facility]; Date ofexam 20221208; I believe a reinterpretation of this exam may alter care ofPatient. Yes TECHNIQUE: [facility]: CT head 12/08/2022 at 0314 [...] patients who have questions please contactthe health long term care phlebotomist that requested your imaging first. Electronically signed by: Nancy Arguello MD, [facility]([phone]), at 12/14/2022 10:32 AM Libra Dykes MD IMG OUTSIDE INTERPRE TATION ORDERABLES * Request For 2nd Read CT Spine [...] who have questions please contact the health long term care phlebotomist that requested your imaging first. ? Electronically signed by: Nancy Arguello MD, [facility] ([phone]), at 12/14/2022 11:33 AM --------ORIGINAL REPORT -------- EXAMINATION: REQUEST FOR 2ND READ CT SPINE CLINICAL HISTORY: s/p fall from ladder; Sending Institution [facility]; Date of exam 20221213; I believe a [...] who have questions please contact the health long term care phlebotomist that requested your imaging first. ? Electronically signed by: Nancy Arguello MD, [facility] ([phone]), at 12/14/2022 9:31 AM Addendum by Nancy Arguello MD on 12/14/2022 11:16 AM EDT --------ADDENDUM #1-------- The radiology workflow coordinator informed Kristen Aguero APRN of the impression at 9:48am on 12/14/2022. --------ORIGINAL REPORT -------- EXAMINATION: REQUEST FOR 2ND READ CT SPINE CLINICAL HISTORY: s/p fall from ladder; Sending Institution [facility]; Date of exam 20221213; I believe a [...] who have questions please contact the health long term care phlebotomist that requested your imaging first. ? Electronically signed by: Nancy Arguello MD, [facility] ([phone]), at 12/14/2022 9:31 AM Impressions 12/14/2022 9:31 [...] who have questions please contact the health long term care phlebotomist that requested your imaging first. ? Electronically signed by: Nancy Arguello MD, [facility] ([phone]), at 12/14/2022 9:31 AM Narrative 12/14/2022 9:31 AM EDT EXAMINATION: REQUEST FOR 2ND READ CT SPINE CLINICAL HISTORY: s/p fall from ladder; Sending Institution [facility]; Date of exam 20221213; I believe a [...] HISTORY: s/p fall from ladder; Sending Institution [facility]; Date ofexam 20221213; I believe a reinterpretation of this exam may alter care ofPatient. Yes TECHNIQUE: CT scan of the thoracic and lumbar spine obtained at [facility] on 11/30/2022 COMPARISON: None FINDINGS: CT [...] patients who have questions please contactthe health long term care phlebotomist that requested your imaging first. Electronically signed by: Nancy Arguello MD, [facility]([phone]), at 12/14/2022 9:31 AM Libra Dykes MD IMG OUTSIDE INTERPRE TATION ORDERABLES * Request For 2nd Read CT Chest [...] who have questions please contact the health long term care phlebotomist that requested your imaging first. ? Narrative 12/14/2022 11:31 AM EDT EXAMINATION: REQUEST FOR 2ND READ CT CHEST ABDOMEN PELVIS CLINICAL HISTORY: s/p traumatic fall; Sending Institution [facility]; Date of exam 20221213; I believe a reinterpretation of this exam may alter care of Patient. Yes TECHNIQUE: Helical CT of the chest, abdomen, and pelvis following the intravenous administration of contrast. This exam was performed on 11/30/2022 at [facility]. Oral contrast was not administered. COMPARISON: CT [...] CLINICAL HISTORY: s/p traumatic fall; Sending Institution [facility]; Date ofexam 20221213; I believe a reinterpretation of this exam may alter care ofPatient. Yes TECHNIQUE: Helical CT of the chest, abdomen, and pelvis following the intravenous administration of contrast. This exam was performed on11/30/2022 at [facility]. Oral contrast was notadministered. COMPARISON: CT chest abdomen and pelvis 11/30/2022 FINDINGS: Limited exam secondary to respiratory motion artifact. Chest: Lungs and large airways: Central airways are patent. Apical predominant centrilobular emphysema. Multifocal patchy opacities in the left upperlobe (series 11 images [id number]), the largest measuring 10 mm (series 11 [id number]). In the bulla/cysts in the medial left [...] bone which was not evident on the 2020 PET and likely abenign lesion. Please see [...] patients who have questions please contactthe health long term care phlebotomist that requested your imaging first. Libra Dykes MD IMG OUTSIDE INTERPRE TATION ORDERABLES * Type and Screen Validity (12/13/2022 10:42 PM EDT) T&S only valid at [facility] Comment:This Type and Screen result is only valid at the [facility] Blood 12/13/2022 10:4 2 PM EDT 12/13/2022 10:52 PM EDT Narrative Resulting Agency Comment Spec In Lab Gentry Schuster MD BLOOD BANK LAB ORDER LEIGHANN Performing Organization Address City/[facility]/ZIP Co de Phone Number [facility] [place] [address] * ABORH Recheck Status (12/13/2022 10:42 PM EDT) ABORH Recheck Order Order Placed [facility] ABORH Type Recheck Complete [facility] Blood 12/13/2022 10:4 2 PM EDT 12/13/2022 10:52 PM EDT Narrative Resulting Agency Comment Spec In Lab Gentry Schuster MD BLOOD BANK LAB ORDER LEIGHANN [facility] [place] [address] * Antibody screen (12/13/2022 10:42 PM EDT) Ab Screen Interp Negative [facility] Expires at 0169 on: 12/16/2022 [facility] Blood 12/13/2022 10:4 2 PM EDT 12/13/2022 10:52 PM EDT Narrative Resulting Agency Comment Spec In Lab Gentry Schuster MD BLOOD BANK LAB ORDER LEIGHANN Performing Organization Address City/[facility]/ZIP Co de Phone Number [facility] [place] [address] * ABO/Rh Typing (12/13/2022 10:42 PM EDT) ABORH Type A Pos [facility] Blood 12/13/2022 10:4 2 PM EDT 12/13/2022 10:52 PM EDT Narrative Resulting Agency Comment Spec In Lab Gentry Schuster MD BLOOD BANK LAB ORDER LEIGHANN Performing Organization Address City/[facility] Co de Phone Number [facility] [place] [address] * (ABNORMAL) Differential, Automated (12/13/2022 10:42 PM EDT) Neutrophil % 79.3 % [facility] Neutrophil Absolute 5.32 1.70 - 6.10 x10(3)/mc L [facility] Lymph % 11.8 % [facility] Lymphocytes Abs 0.8(L) 0.9 - 3.2 x10(3)/mc L [facility] Monocyte % 7.6 % [facility] Monocyte Abs 0.5 0.3 - 0.9 x10(3)/mc L [facility] Eos % 0.6 % [facility] Eosinophils Abs 0.0 0.0 - 0.4 x10(3)/mc L [facility] Basophil % 0.3 % [facility] Baso Absolute 0.0 0.0 - 0.1 x10(3)/mc L [facility] Immature Gran % 0.40 % [facility] Comment: Immature granulocytes(IG's)percentage and absolute count will include metamyelocytes, myelocytes, and promyelocytes. Blood smears from CBCs yielding IG's will be scanned manually for concordance. If this scan disagrees with the automated IG or if promyelocytes are noted, a manual differential will be performed. Immature Gran Absolute 0.03 0.00 - 0.04 x10(3)/mc L [facility] Blood 12/13/2022 10:4 2 PM EDT 12/13/2022 10:54 PM EDT Narrative Resulting Agency Comment Spec In Lab Ez Bowser MD HEMATOLOGY ORDERABLE S [facility] [place] [address] * (ABNORMAL) Hemogram (12/13/2022 10:42 PM EDT) White Blood Cell 6.7 4.0 - 9.5 x10(3)/mc L [facility] Red Blood Cell 3.47(L) 4.58 - 5.54 x10(6)/mc L [facility] Hemoglobin 10.1(L) 13.7 - 16.5 g/dL [facility] Hematocrit 30.5(L) 40.5 - 48.5 % [facility] Mean Cell Volume 87.9 82.9 - 93.1 fL [facility] Mean Cell Hemoglobin 29.1 27.5 - 32.1 pg [facility] Mean Cell Hemoglobin Concentration 33.1 32.0 - 35.7 g/dL [facility] Platelet 317 145 - 357 x10(3)/mc L [facility] RDW Standard Deviation 56.4(H) 36.0 - 45.0 fL [facility] RDW coefficient of variation 18.0(H) 11.4 - 13.8 % [facility] Mean Platelet Volume 8.9 7.6 - 12.9 fL [facility] NRBC% auto 0.0 % [facility] NRBC Absolute 0.000 0.000 - 0.000 x10(3)/mc L [facility] Blood 12/13/2022 10:4 2 PM EDT 12/13/2022 10:54 PM EDT Narrative Resulting Agency Comment Spec In Lab Ez Bowser MD HEMATOLOGY ORDERABLE S Performing Organization Address City/[facility]/ZIP Co de Phone Number [facility] [place] [address] * APTT (12/13/2022 10:42 PM EDT) Partial Thromboplastin Time 33 25 - 37 sec [facility] Comment: The PTT is NOT appropriate for heparin monitoring. Use the Anti-Xa level for heparin monitoring (HEP UFH) or LMWH monitoring (HEP LMW). A PTT less than 37 seconds generally indicates adequate hemostasis. Blood 12/13/2022 10:4 2 PM EDT 12/13/2022 10:54 PM EDT Narrative Resulting Agency Comment Spec In Lab Libra Dykes MD HEMATOLOGY ORDERABLE S Performing Organization Address [facility] Co de Phone Number [facility] [place] [address] * Prothrombin Time (12/13/2022 10:42 PM EDT) Prothrombin Time 12.5 9.4 - 12.5 sec [facility] International Normalization Ratio 1.1 [facility] Comment: An INR <2.0 indicates adequate procoagulant activity for hemostasis in most patients without underlying bleeding disorders, though the INR may not adequately reflect hemostatic capacity in patients with liver disease and synthetic impairment. The recommended target INR range for therapeutic anticoagulation is 2.0 ? 3.0 for most applications, though lower and higher ranges may be appropriate depending on clinical circumstances. Blood 12/13/2022 10:4 2 PM EDT 12/13/2022 10:54 PM EDT Narrative Resulting Agency Comment Spec In Lab Libra Dykes MD HEMATOLOGY ORDERABLE S Performing Organization Address [facility] Co de Phone Number [facility] [place] [address] * (ABNORMAL) Phosphorus (12/13/2022 10:42 PM EDT) Phosphorus 2.1(L) 2.5 - 4.5 mg/dL [facility] Blood 12/13/2022 10:4 2 PM EDT 12/13/2022 10:54 PM EDT Narrative Resulting Agency Comment Spec In Lab Libra Dykes MD CHEMISTRY ORDERABLES Performing Organization Address [facility]/ZIP Co de Phone Number [facility] [place] [address] * (ABNORMAL) Magnesium (12/13/2022 10:42 PM EDT) Magnesium 0.62(L) 0.69 - 1.07 mmol/L [facility] Blood 12/13/2022 10:4 2 PM EDT 12/13/2022 10:54 PM EDT Narrative Resulting Agency Comment Spec In Lab Libra Dykes MD CHEMISTRY ORDERABLES [facility] [place] [address] * (ABNORMAL) Comprehensive metabolic panel (non-fasting) (12/13/2022 10:42 PM EDT) Glucose 95 65 - 199 mg/dL [facility] Comment:Diabetes: >=200 mg/d L plus symptoms Blood Urea Nitrogen 11 10 - 20 mg/dL [facility] Creatinine 0.54(L) 0.80 - 1.50 mg/dL [facility] Sodium 135 135 - 145 mmol/L [facility] Potassium 4.0 3.5 - 5.0 mmol/L [facility] Comment: Please note: ??Patients with WBC >100,000 may have falsely elevated Potassium levels. ??For accurate Potassium quantification in these patients send serum separator tube (gold top) for subsequent determinations. ??Contact the Clinical Chemistry Laboratory if there are any questions. Chloride 97(L) 98 - 107 mmol/L [facility] Carbon Dioxide 30 22 - 31 mmol/L [facility] Anion Gap 8 5 - 15 mmol/L [facility] Calcium 8.7 8.5 - 10.5 mg/dL [facility] Protein, Total 6.2 6.1 - 8.0 g/dL [facility] Albumin 2.5(L) 3.2 - 5.2 g/dL [facility] Aspartate Aminotransferase 38 0 - 39 unit/L [facility] Alanine Aminotransferase 16 0 - 55 unit/L [facility] Alkaline Phosphatase 122 40 - 130 unit/L [facility] Bilirubin, Total 0.8 0.2 - 1.3 mg/dL [facility] Est Glomerular Filtration Rate 104 >=60 mL/min/1. 73 m?? [facility] Comment: This patient's estimated GFR was calculated using the 2020 CKD-EPI equation. The estimated GFR can vary from the measured GFR by up to 30% in the absence of rapidly changing kidney function. Assessment of the estimated GFR is not appropriate when creatinine concentrations are rapidly changing. For clinical situations in which a more precise estimate of GFR is necessary, consider alternative methods of GFR estimation such as a 24-hour urine creatinine clearance. Assignment of CKD stage 1-5 for patients with an eGFR near the transition point between stages may be based on clinical assessment of muscle mass and symptoms in addition to eGFR. Blood 12/13/2022 10:4 2 PM EDT 12/13/2022 10:54 PM EDT Narrative Resulting Agency Comment Spec In Lab Libra Dykes MD CHEMISTRY ORDERABLES [facility] [place] [address] * Film Library- Storage Only CT Abdomen & Pelvis (12/11/2022 12:00 AM EDT) Narrative Dicom, Auditing User - 12/13/2022 10:46 PM EDT This exam is auto-finalizing. It's purpose is for storage only. Peter Boone MD IMG FILM LIBRARY ORD ERABLES documented in this encounter Visit Diagnoses Diagnosis Splenic laceration- Primary Other spleen injury without mention of open wound into cavity Compression fracture of T1 vertebra, initial encounter Other fracture of sacrum, initial encounter for closed fracture Laceration of spleen, initial encounter Severe protein-calorie malnutrition Other severe protein-calorie malnutrition Other fracture of sacrum, initial encounter for closed fracture documented in this encounter Admitting Diagnoses Diagnosis Splenic laceration Other spleen injury without mention of open wound into cavity documented in this encounter Administered Medications Inactive Administered Medications - up to 3 most recent administrations Medication Order MAR Action Action Date Dose Rate Site acetaminophen (Tylenol) tablet 650 mg 650 mg, Oral, EVERY 6 HOURS, First dose (after last modification) on 12/14/22 at 1745, Until Discontinued, Should be used concomitantly if other analgesics are ordered. Maximum dose of acetaminophen is 4,000 mg from all sources in 24 hours., Routine Given 12/20/2022 10:30 PM EDT 650 mg Given 12/20/2022 10:30 AM EDT 650 mg Given 12/19/2022 10:36 PM EDT 650 mg acetaminophen (Tylenol) tablet 650 mg 650 mg, Oral, EVERY 6 HOURS PRN, Starting on 12/21/22 at 0915, Until 12/25/22 at 1839, Pain, Should be used concomitantly if other analgesics are ordered. Maximum dose of acetaminophen is 4,000 mg from all sources in 24 hours., Routine bisacodyL (Dulcolax) suppository 10 mg 10 mg, Rectal, DAILY PRN, Starting on 12/23/22 at 1240, Until Fri12/25/22 at 1839, Constipation, 1st Line Agent- Give with polyethylene glycoL and docusate/senna if no BM in last 24 hr and rectal fullness is reported or assessed., 1st Line Agent- Give with polyethylene glycoL and docusate/senna if no BM in last 24 hr and rectal fullness is reported or assessed., Routine enoxaparin (Lovenox) (30 mg/0.3 mL) subcutaneous injection 30 mg 30 mg, Subcutaneous, 2 TIMES DAILY, First dose on 12/15/22 at 2100, Until Discontinued, Routine Given 12/25/2022 8:05 AM EDT 30 mg Given 12/24/2022 9:04 PM EDT 30 mg Given 12/24/2022 8:38 AM EDT 30 mg fentaNYL (pf) (50 mcg/mL) multi-dose injection 25-50 mcg 25-50 mcg, Intravenous, EVERY 3 MIN PRN, Starting on 12/15/22 at 1230, Until 12/15/22 at 1556, Pain, per unit protocol, For use in Interventional Radiology (IR) only for procedural sedation with direct provider supervision and verbal order. - Start dose: 50 mcg (reduce dose to 25 mcg if history of sedation sensitivity). - Titration dose: 25-50 mcg IV, (based on patient response) every 3 minutes PRN to maintain procedural pain less than 2 per Pain Scale. Maximum dose: 50 mcg/dose, 250 mcg/hour, Angio/IR (Intra-Procedure), Routine Given 12/15/2022 2:35 PM EDT 25 mcg Given 12/15/2022 1:58 PM EDT 25 mcg Given 12/15/2022 1:29 PM EDT 25 mcg iohexoL (Omnipaque) (350 mg/mL) solution 1-400 mL 1-400 mL, Intra-arterial, ONCE, 1 dose, On Fri12/15/22 at 1330, For intra-procedural use by proceduralist., Angio/IR (Intra-Procedure), Routine Given 12/15/2022 1:30 PM EDT 40 mLs lactated Ringers 500 mL IV bolus Intravenous, ONCE, 1 dose, On Fri12/20/22 at 1645 New Bag 12/20/2022 4:22 PM EDT 500 mL/hr lactated ringers infusion 75 mL/hr, Intravenous, CONTINUOUS, Starting on Fri12/15/22 at 1415, Until Fri12/17/22 at 1357 New Bag 12/16/2022 5:18 PM EDT 75 mL/hr 75 mL/hr New Bag 12/15/2022 4:10 PM EDT 75 mL/hr 75 mL/hr lidocaine (Xylocaine) 1% (10 mg/mL) injection 10 mg 10 mg, Subcutaneous, ONCE, 1 dose, On Fri12/15/22 at 1330, For use in Interventional Radiology (IR) only for procedure with direct provider supervision and verbal order., Angio/IR (Intra-Procedure), Routine Given 12/15/2022 1:30 PM EDT 10 mg magnesium sulfate 1 g in dextrose 5% 100 mL infusion 1 g, Intravenous, ONCE, 1 dose, On Fri12/17/22 at 1130, Administer over 60 Minutes New Bag 12/17/2022 11:25 AM EDT 1 g 100 mL/hr midazolam (pf) (Versed) (1 mg/mL) multi-dose injection 0.5-1 mg 0.5-1 mg, Intravenous, EVERY 3 MIN PRN, Starting on Fri12/15/22 at 1230, Until Fri12/15/22 at 1556, Sedation, For use in Interventional Radiology (IR) only for procedural sedation with direct provider supervision and verbal order. - Start dose: 1 mg (Reduce dose to 0.5 mg if history of sedation sensitivity). - Titration dose: 0.5 mg - 1 mg (based on patient response) every 3 minutes PRN to obtain RASS score of -3. Maximum dose: 1 mg/dose, 5 mg/hour., Angio/IR (Intra-Procedure), Routine Given 12/15/2022 2:37 PM EDT 0.5 mg Given 12/15/2022 2:18 PM EDT 0.5 mg Given 12/15/2022 1:39 PM EDT 0.5 mg polyethylene glycoL (Miralax) packet 17 g 17 g, Oral, DAILY, First dose (after last modification) on Fri12/20/22 at 1415, Until Discontinued, 1st Line Agent - Give daily with docusate/senna if no BM within last 24 hr., Routine Given 12/21/2022 8:38 AM EDT 17 g polyethylene glycoL (Miralax) packet 17 g 17 g, Oral, DAILY PRN, Starting on Fri12/23/22 at 1240, Until Fri12/25/22 at 1839, Constipation, 1st Line Agent- Give daily with docusate/senna if no BM within last 24 hr., 1st Line Agent - Give daily with docusate/senna if no BM within last 24 hr., Routine primidone (Mysoline) tablet 300 mg 300 mg, Oral, EVERY 8 HOURS SCHEDULED, First dose on Fri12/13/22 at 2245, Until Discontinued, Take with Food, Routine Given 12/25/2022 2:05 PM EDT 300 mg Given 12/25/2022 5:14 AM EDT 300 mg Given 12/24/2022 9:04 PM EDT 300 mg propranolol LA (Inderal LA) capsule 120 mg 120 mg, Oral, DAILY, First dose on Fri12/14/22 at 0900, Until Discontinued, DO NOT CRUSH OR OPEN, Routine Given 12/25/2022 8:05 AM EDT 120 mg Given 12/24/2022 8:38 AM EDT 120 mg Given 12/23/2022 8:20 AM EDT 120 mg remdesivir (Veklury) 100 mg in sodium chloride 0.9% 250 mL infusion 100 mg, Intravenous, EVERY 24 HOURS, 4 doses, First dose on Fri12/15/22 at 0230, Last dose on Fri12/18/22 at 0230, Administer over 30 Minutes, Administer separately from other medications. After infusion complete, flush line with 30 mL of NS at rate of 200 mL/hr. New Bag 12/18/2022 2:17 AM EDT 100 mg 500 mL /hr New Bag 12/17/2022 2:07 AM EDT 100 mg 500 mL/hr New Bag 12/16/2022 3:49 AM EDT 100 mg 500 mL/hr remdesivir (Veklury) 200 mg in sodium chloride 0.9% 250 mL infusion 200 mg, Intravenous, EVERY 24 HOURS, 1 dose, First dose on Fri12/14/22 at 0230, Administer over 30 Minutes, Administer separately from other medications. After infusion complete, flush line with 30 mL of NS at rate of 200 mL/hr. New Bag 12/14/2022 2:12 AM EDT 200 mg 500 mL/hr senna-docusate (Pericolace) 8.6-50 mg per tablet 2 tablet 2 tablet, Oral, 2 TIMES DAILY, First dose on Fri12/14/22 at 2100, Until Discontinued, Routine Given 12/20/2022 9:14 PM EDT 2 tablets Given 12/20/2022 3:27 PM EDT 2 tablets Given 12/19/2022 9:10 PM EDT 2 tablets senna-docusate (Pericolace) 8.6-50 mg per tablet 2 tablet 2 tablet, Oral, 2 TIMES DAILY, First dose on Fri12/23/22 at 1330, Until Discontinued, Routine Given 12/25/2022 8:06 AM EDT 2 tablets Given 12/23/2022 9:05 PM EDT 2 tablets Given 12/23/2022 1:27 PM EDT 2 tablets sodium chloride 0.9 % (flush) (BD PosiFlush Normal Saline 0.9) flush 5 mL 5 mL, Intravenous, 2 TIMES DAILY, First dose on Fri12/13/22 at 2245, Until Discontinued, Recovery (Recovery-Hospital Unit), Routine Given 12/25/2022 8:06 AM EDT 5 mLs Given 12/24/2022 9:00 PM EDT 5 mLs Given 12/24/2022 9:00 AM EDT 5 mLs sodium chloride 0.9 % (flush) (BD PosiFlush Normal Saline 0.9) flush 5 mL 5 mL, Intravenous, 2 TIMES DAILY, First dose on Fri12/15/22 at 1330, Until Discontinued, Angio/IR (Day of Procedure), Routine Given 12/15/2022 1:30 PM EDT 5 mLs sodium chloride 0.9% infusion 1,000 mL, at 100 mL/hr, Intravenous, CONTINUOUS, Starting on 12/14/22 at 0000, Until 12/14/22 at 1712, Recovery (Recovery-Hospital Unit) New Bag 12/14/2022 12:11 AM EDT 1,000 mLs 100 m L/hr sodium phosphate 10 mMol in sodium chloride 0.9% 100 mL infusion 10 mmol, Intravenous, ONCE, 1 dose, On Fri12/20/22 at 1330, Administer over 4 Hours, Administer over 4-6 hours Restarted 12/20/2022 5:27 PM EDT 25 mL /hr New Bag 12/20/2022 3:31 PM EDT 10 mmol 25 mL/hr tiotropium bromide (Spiriva Respimat) 2.5 mcg/actuation inhaler 2 puff 2 puff, Inhalation, DAILY, First dose on Fri12/24/22 at 1000, Until Discontinued, Must be primed prior to first administration, Routine Given 12/25/2022 8:06 AM EDT 2 puffs Given 12/24/2022 2:57 PM EDT 2 puffs documented in this encounter Active and Recently Administered Medications Times are shown in EDT. Scheduled Medication Order 12/23/2022 12/24/2022 12/25/2022 enoxaparin (Lovenox) (30 mg/0.3 mL) subcutaneous injection 30 mg 30 mg, Subcutaneous, 2 TIMES DAILY, First dose on Fri12/15/22 at 2100, Until Discontinued, Routine 0820 (Given - Provider: Brayan Sosa RN)210 (Given - Provider: Luda Smith RN) 0838 (Given - Provider: Katia Michelle RN)210 (Given - Provider: Luda Smith RN) 0805 (Given - Provider: Brayan Sosa RN) primidone (Mysoline) tablet 300 mg 300 mg, Oral, EVERY 8 HOURS SCHEDULED, First dose on Fri12/13/22 at 2245, Until Discontinued, Take with Food, Routine 0513 (Given - Provider: Riaz Logan LPN)1327 (Given - Provider: Brayan Sosa RN)2105 (Given - Provider: Luda Smith RN) 0504 (Given - Provider: Riaz Logan LPN)1359 (Given - Provider: Katia Michelle RN)2104 (Given - Provider: Luda Smith RN) 0514 (Given - Provider: Leland Fonseca LPN)1405 (Given - Provider: Brayan Sosa RN) propranolol LA (Inderal LA) capsule 120 mg 120 mg, Oral, DAILY, First dose on Fri12/14/22 at 0900, Until Discontinued, DO NOT CRUSH OR OPEN, Routine 0820 (Given - Provider: Brayan Sosa RN) 0838 (Given - Provider: Katia Michelle RN) 0805 (Given - Provider: Brayan Sosa RN) senna-docusate (Pericolace) 8.6-50 mg per tablet 2 tablet 2 tablet, Oral, 2 TIMES DAILY, First dose on Fri12/23/22 at 1330, Until Discontinued, Routine 1327 (Given - Provider: Brayan Sosa RN)2105 (Given - Provider: Luda Smith RN) 0838 (Not Given - Provider: Katia Michelle RN - Reason: Patient/family refused)210 (Not Given - Provider: Luda Smith RN - Reason: Patient/family refused) 0806 (Given - Provider: Brayan Sosa RN) sodium chloride 0.9 % (flush) (BD PosiFlush Normal Saline 0.9) flush 5 mL 5 mL, Intravenous, 2 TIMES DAILY, First dose on Fri12/13/22 at 2245, Until Discontinued, Recovery (Recovery-Hospital Unit), Routine 0820 (Given - Provider: Brayan Sosa RN)2100 (Given - Provider: Luda Smith RN) 0900 (Given - Provider: Katia Michelle RN)2100 (Given - Provider: Luda Smith RN) 0806 (Given - Provider: Brayan Sosa RN) tiotropium bromide (Spiriva Respimat) 2.5 mcg/actuation inhaler 2 puff 2 puff, Inhalation, DAILY, First dose on Fri12/24/22 at 1000, Until Discontinued, Must be primed prior to first administration, Routine 1000 (Not Given - Provider: Katia Michelle RN - Reason: Medication not available - Comment: 1328 - medication still has not been sent by pharmacy)1457 (Given - Provider: Katia Michelle RN - Comment: medication not available/not sent up until now) 0806 (Given - Provider: Brayan Sosa RN) PRN Medication Order 12/23/2022 12/24/2022 12/25/2022 acetaminophen (Tylenol) tablet 650 mg 650 mg, Oral, EVERY 6 HOURS PRN, Starting on Fri12/21/22 at 0915, Until Fri12/25/22 at 1839, Pain, Should be used concomitantly if other analgesics are ordered. Maximum dose of acetaminophen is 4,000 mg from all sources in 24 hours., Routine bisacodyL (Dulcolax) suppository 10 mg(Linked Group 1) 10 mg, Rectal, DAILY PRN, Starting on Fri12/23/22 at 1240, Until Fri12/25/22 at 1839, Constipation, 1st Line Agent- Give with polyethylene glycoL and docusate/senna if no BM in last 24 hr and rectal fullness is reported or assessed., 1st Line Agent- Give with polyethylene glycoL and docusate/senna if no BM in last 24 hr and rectal fullness is reported or assessed., Routine naloxone (Narcan) (0.4 mg/mL) injection 0.2 mg 0.2 mg, Intravenous, EVERY 1 MIN PRN, Starting on Fri12/13/22 at 2155, Until Fri12/25/22 at 1839, Opioid Reversal, If respiratory rate less than 6 OR the patient is unable to arouse OR SpO2 is declining, Give for respiratory rate of less than or equal to 6 and patient is heavily sedated or unarousable. May repeat every 60 seconds to increase respiratory rate. DO NOT exceed 2 mg total dose., Recovery (Recovery-Hospital Unit), Routine polyethylene glycoL (Miralax) packet 17 g(Linked Group 1) 17 g, Oral, DAILY PRN, Starting on Fri12/23/22 at 1240, Until Fri12/25/22 at 1839, Constipation, 1st Line Agent- Give daily with docusate/senna if no BM within last 24 hr., 1st Line Agent - Give daily with docusate/senna if no BM within last 24 hr., Routine Linked Groups Order Group 1: polyethylene glycoL (Miralax) packet 17 gJump to med 17 g, Oral, DAILY PRN, Starting on 12/23/22 at 1240, Until Fri12/25/22 at 1839, Constipation, 1st Line Agent- Give daily with docusate/senna if no BM within last 24 hr., 1st Line Agent - Give daily with docusate/senna if no BM within last 24 hr., Routine And bisacodyL (Dulcolax) suppository 10 mgJump to med 10 mg, Rectal, DAILY PRN, Starting on Fri12/23/22 at 1240, Until Fri12/25/22 at 1839, Constipation, 1st Line Agent- Give with polyethylene glycoL and docusate/senna if no BM in last 24 hr and rectal fullness is reported or assessed., 1st Line Agent- Give with polyethylene glycoL and docusate/senna if no BM in last 24 hr and rectal fullness is reported or assessed., Routine documented in this encounter Additional Health Concerns [...] eligible for precaution removal: 12/19/22 Please call [phone] with questions. 12/16/2022 12/16/2022 12/19/2022 11:39 AM EDT History of COVID-19 Comment:Retesting for COVID is not recommended unless infectious syndrome persists with no alternate explanation. Symptoms started Positive test on 12/08/22 Please do not retest prior to 03/10/23 Please call Infection Prevention [phone] with questions. 12/19/2022 12/19/2022 03/19/2023 8:09 P M EDT documented as of this encounter Care Teams Thread Cutter Relationship Specialty Start Date End Date Peter Boone MD PCP - General Family Medicine 07/27/20 01/29/24 documented as of this encounter
--- OUTSIDE RECORDS SUMMARY | 2024-04-30 06:48 | XMS_ITS | Encounter Summary ---
Author Organization [place] [address] Care Team Providers Care Hr Director Name Role Phone Peter Boone MD Primary Care Provider [phone] Reason for Referral * Consultation (Routine) - Closed Specialty Diagnoses / Procedures Referred By Nicol carranza Referred To Contact Gastroenterology Diagnoses Tubular adenoma Senait Itzel Hairston [address] [place] [address] [place] [address] [facility] Endoscopy [address] [place] [address] Referral ID Status Reason Start Date Expiration Date V isits Requested Visits Authorized [id number] Closed Test Only PCP Updated and/or Approved 09/09/2023 09/08/2024 6 6 Encounter Details Date Type Department Care Team (Late st Contact Info) Description 09/09/2023 Transcribe Orders [facility] Incoming Referrals [phone] [place], [place] [address] Tubular adenoma Social History Tobacco Use Types Packs/Day Years Used Date Smoking Tobacco: Every Day Cigarettes 0.5 60 Started: 07/1960; Last attempted to quit: 07/2020 Smokeless Tobacco: Never Comments:taking chantix, try ing to quit Alcohol Use Standard Drinks/Week Comments No 0 (1 standard drink = 0.6 oz pur e alcohol) [facility] Inpatient Questions Answer Date Recorded Does Anyone [...] as of this encounter Plan of Treatment Scheduled Referrals Name Type Priority Associated Diagnoses Orde r Schedule REFERRAL TO ENDOSCOPY PROCEDURE Outpatient Referral Routine Tubular adenoma Ordered: 09/09/2023 documented as of this encounter Visit Diagnoses Diagnosis Tubular adenoma Benign neoplasm of unspecified site documented in this encounter Care Teams Hr Director Relationship Specialty Start Date End Date Peter Boone MD PCP - General Family Medicine 07/27/20 01/29/24 documented as of this encounter
--- OUTSIDE RECORDS SUMMARY | 2024-04-30 06:48 | XMS_ITS | Encounter Summary ---
Author Organization [facility] Address [facility] [place] [address] Care Team Providers Care Agriculture Manager Name Role Phone Peter Boone MD Primary Care Provider [phone] Encounter Details Date Type Department Care Team (Late st Contact Info) Description 01/22/2023 Telephone XRay at [address] [place] [address] Elham Morse Social History Tobacco Use Types Packs/Day Years Used Date Smoking Tobacco: Former Cigarettes 1.5 60 0 07/1960 - 07/2020 Smokeless Tobacco: Never Comments:taking chantix, try ing to quit Alcohol Use Standard Drinks/Week Comments No 0 (1 standard drink = 0.6 oz pur e alcohol) [facility] Inpatient Questions Answer Date Recorded [...] prior to 03/10/23 Please call Infection Prevention [phone] with questions. 12/19/2022 12/19/2022 03/19/2023 8:09 P M EDT documented as of this encounter Care Teams Agriculture Manager Relationship Specialty Start Date End Date Peter Boone MD PCP - General Family Medicine 07/27/20 01/29/24 documented as of this encounter
--- OUTSIDE RECORDS SUMMARY | 2024-04-30 06:48 | XMS_ITS | Encounter Summary ---
Author Organization [facility] [place] [address] Care Team Providers Care Lead Network Architect Name Role Phone Peter Boone MD Primary Care Provider [phone] Encounter Details Date Type Department Care Team (Late st Contact Info) Description 10/21/2023 Telephone [place] [address] Tonia Rivera Social History Tobacco Use Types Packs/Day Years [...] on file documented as of this encounter Miscellaneous Notes * Telephone Encounter - Tonia Rivera - 10/21/2023 11:22 AM EDT Klever Holguin [id number] Diagnosis/Indication: Tubular adenoma Please review patient chart to confirm if previous Endoscopy procedure was performed within system. If yes, take note of Anesthesia type used. If previous procedure found, and with MAC/propofol Anesthesia support was used, schedule this procedure with Anesthesia and skip the Anesthesia portion of questions. If not performed within [facility] system, not performed at all, or performed with IVCS, ask Anesthesia questions. SCHEDULING QUESTIONS (ask all patient these questions) Have you ever had a/an Colonoscopy before? Yes: Date [address] [facility] If yes, did you have any problems with the procedure (such as waking up during the procedure, pain or difficulties afterwards, etc.)? No What type of sedation was used: Other: Unknow (ASK ONLY FOR COLONOSCOPY PROCEDURES) Are you aware, or have you ever been told that you had a poor prep or failed prep with a previous colonoscopy? No If yes, assign the Extended MiraLAX Prep (ASK ONLY FOR COLONOSCOPY PROCEDURES) Do you have an ongoing history of constipation? (E.g., hard stools, >2 days without a bowel movement, straining or difficulty passing stool) No If yes, assign the Extended MiraLAX Prep Do you take any blood thinners or have you been diagnosed with a bleeding disorder that increases your risk of bleeding with procedures? No Do you have a Pacemaker or Defibrillator device? If yes, send pool message to Cardiology with patient information and date or procedure. No Do you have diabetes? If yes, call PCP/managing provider to discuss use of prep and any questions or concerns related to. No If yes, assign the Extended MiraLAX Prep Do you take any iron supplements or vitamins that contain iron? No Do you have a preference regarding the gender of your provider? No ANESTHESIA QUESTIONS (YES to any question, please book with Anesthesia support) Have you ever been diagnosed with Pulmonary Hypertension and/or Congential Heart Disease? No Have you been diagnosed with A-Fib (atrial fibrillation) that is NOT being well controled with medications? No Have you ever had an allergic or adverse reaction to Fentanyl or Versed? No Have you had a problem with sedation or anesthesia? (Waking up during procedure, extreme confusion after, etc.) No Do you have a diagnosis of Obstructive Sleep Apnea that requires the use of a c- pap machine? Yes Do you use an oxygen tank at home? No Do you use a rescue inhaler more than twice per day? (COPD, severe asthma) No Do you experience breathing problems when you lay flat for a period of time? No Do you regularly take prescription opioid pain medications on a daily basis? (Includes oxycodone, Percocet, Suboxone, methadone, etc.) No If yes, assign the Extended MiraLAX Prep SCHEDULING CONFIRMATIONS: Please note any and all parts of your conversation with the patient here. We offer all new patients an opportunity to have an appointment with one of our associate care providers to learn more about your upcoming procedure, ask questions and get answers. These appointmentsare offered via telehealth. Would you be interested in scheduling this appointment? (Only ask if NEW referral patient; skip this question if [facility] provider ordered the procedure.) No Is there any other information or concerns you would like to us to share with your care team in relation to your upcoming scheduled procedure? No You must have a responsible green party who will drive you to your procedure, stay on campus for the entire duration of your procedure, and drive you home from your procedure. Who will likely be your rickshaw driver for the procedure? *Please Verify the height and weight, and adjust if height and/or weight have changed* Estimated body mass index is 17.43 kg/m?? as calculated from the following: Height as of 02/11/23: 175.3 cm (5' 9). Weight as of 02/11/23: 53.5 kg (118 lb). *Patient must be scheduled for Anesthesia support if BMI is 40 or above* Height: 5'9 Weight: 120 BMI: 17.7 Age:77 y.o. documented in this encounter Plan of Treatment Not on file documented as of this encounter Visit Diagnoses Not on filedocumented in this encounter Care Teams Lead Network Architect Relationship Specialty Start Date End Date Peter Boone MD PCP - General Family Medicine 07/27/20 01/29/24 documented as of this encounter
--- OUTSIDE RECORDS SUMMARY | 2024-04-30 06:48 | XMS_ITS | Encounter Summary ---
Author Organization [facility] Address [facility] [place] [address] Care Team Providers Care Production Counter Name Role Phone Peter Boone MD Primary Care Provider [phone] Encounter Details Date Type Department Care Team (Late st Contact Info) Description 12/08/2022 Ancillary Procedure Radiology Library at [facility] [place] [address] Libra Dykes MD [facility] [place] [address] Social History Tobacco Use Types Packs/Day Years [...] Diagnosis Comments FILM LIBRARY STORAGE ONLY CT HEAD Routine 12/08/2022 12:00 AM EDT documented in this encounter Results * Film Library- Storage Only CT Head (12/08/2022 12:00 AM EDT) Narrative RAD - 12/13/2022 7:23 AM EDT This exam is auto-finalizing. It's purpose is for storage only. Libra Dykes MD [facility] [place]ARY [place] ERAB[place], [place] documented in this encounter Visit Diagnoses Not on filedocumented in this encounter Care Teams Production Counter Relationship Specialty Start Date End Date Peter Boone MD PCP - General Family Medicine 07/27/20 01/29/24 documented as of this encounter
--- OUTSIDE RECORDS SUMMARY | 2024-04-30 06:48 | XMS_ITS | Encounter Summary ---
Author Organization [facility] [place] [address] Care Team Providers Care Blower Installer Name Role Phone Peter Boone MD Primary Care Provider [phone] Encounter Details Date Type Department Care Team (Late st Contact Info) Description 12/11/2022 Ancillary Procedure Radiology Library [place] [address] Social History Tobacco Use Types Packs/Day Years [...] Diagnosis Comments FILM LIBRARY STORAGE ONLY CT ABDOMEN AND PELVIS Routine 12/11/2022 12:00 AM EDT documented in this encounter Results * Film Library- Storage Only CT Abdomen & Pelvis (12/11/2022 12:00 AM EDT) Narrative Dicom, Auditing User - 12/13/2022 10:46 PM EDT This exam is auto-finalizing. It's purpose is for storage only. Peter Boone MD IMG FILM LIBRARY ORD ERABLES documented in this encounter Visit Diagnoses Not on filedocumented in this encounter Care Teams Blower Installer Relationship Specialty Start Date End Date Peter Boone MD PCP - General Family Medicine 07/27/20 01/29/24 documented as of this encounter
--- OUTSIDE RECORDS SUMMARY | 2024-04-30 06:48 | XMS_ITS | Encounter Summary ---
Author Organization [facility] [place] [address] Care Team Providers Care Circulation Man Name Role Phone Peter Boone MD Primary Care Provider [phone] Reason for Visit * Auth/Cert (Routine) Specialty Diagnoses / Procedures Referred By Nicol carranza Referred To Contact Diagnoses Tubular adenoma tubular adenoma Procedures PRO COLONOSCOPY, DIAGNOSTIC PRO COLONOSCOPY, BIOPSY PRO COLONOSCOPY, REMV LESN, SNARE PRO ANES, LOWER INTESTINE, SCREENING COLONOSCOPY COLONOSCOPY,SCREENING (WRVU 3.26) Lizbet Rodríguez MD [facility] [place] [address] [facility] Referral ID Status Reason Start Date Expiration Date Visits Re quested Visits Authorized [id number] 1 1 Encounter Details Date Type Department Care Team (Late st Contact Info) Description 01/13/2024 9:57 AM EDT Anesthesia [place] [id number] Kaitlin Banegas MD [facility] [place] [address] Anesthesia Record Procedure Summary Procedure Name Responsible Anesthesiologist Anesthesia Start Time Anesthesia Stop Time COLONOSCOPY, POLYPECTOMY, REMOVAL LESION BY SNARE (WRVU 4.57) Kaitlin Banegas MD 01/13/24 0957 01/13/24 1036 Events Date Time Event Comment 01/13/2024 0957 AN Verify 0957 Start 0957 An Start Data 0959 1000 An Induction 1001 Anesthesia Ready 1032 an stop data 1036 Recovery or ICU Handoff Mary ent care was transferred to the destination unit staff after review of the patient's medical history, current anesthetic/surgical status and plan, according to the Provider Handoff Checklist. 1036 Stop Meds Name Total lidocaine IV 30 mg propofoL 50 mg propofol INF 162.16 mg PHENYLephrine 160 mcg lactated ringers 250 mL * Agents Name O2 Auxiliary Flowmeter 1 * Blood No blood administrations on file. Lines, Drains, and Airways Type Details Placement Removal Incision 12/15/22; 1331; Righ t; groin; non-laparascopic puncture; Splenic angiogram w/ MD Munoz 12/15/22 1331 by Megan Greene, RN External Catheter 12/24/22; 1000; LDA not present upon assessment; 01/13/24; 0942 12/24/22 1000 by Katia Michelle RN 01/13/24 0942 by Tomasa Mckeon RN PIV 01/13/24; 0943; [id number] catheter system; 22 gauge; cephalic vein (lateral side of arm), right; 01/13/24; 1055 01/13/24 0943 by Tomasa Mckeon RN 01/13/24 1055 by Tamara Snow, STELLA documented in this encounter Social History Tobacco Use Types Packs/Day [...] on file documented as of this encounter OR Notes * Anesthesia Postprocedure Evaluation - Kaitlin Banegas MD - 01/13/2024 11:16 AM EDT Department of Anesthesiology Post-procedure Note Patient: Klever Holguin Procedure Summary Date: 01/13/24 Room / Location: [facility] ENDO 4 / [facility] ENDOSCOPY Anesthesia Start: 956 Anesthesia Stop: 1035 Procedure: COLONOSCOPY, POLYPECTOMY, REMOVAL LESION BY SNARE (WRVU 4.57) Diagnosis: (tubular adenoma) Surgeons: Lizbet Rodríguez MD Responsible Provider: Kaitlin Banegas MD Anesthesia Type: MAC ASA Status: 3 All Anesthesia Providers: Anesthesiologist: Kaitlin Banegas MD CURRICULUM AND INSTRUCTION DIRECTOR: Yvette Goff CRNA Vitals Value Taken Time BP 95/71 01/13/24 1050 Temp Pulse Resp SpO2 98 % 01/13/24 1050 Pain Level Patient Location: PACU/[facility] Level of Consciousness: Awake and Alert Pain Management: Satisfactory Analgesia PONV: None Cardiovascular Status: At Baseline Respiratory Status: At Baseline Postoperative Fluid Status: Intravascular EUvolemia Possible Anesthetic Complications: NONE apparent at time of evaluation Final Primary Anesthesia Type: (The anesthetic type performed was the same as planned.) Comments: Neb ordered prn * Anesthesia Preprocedure Evaluation - Keagan Ryder MD - 01/12/2024 3:56 PM EDT Pre-Anesthesia Evaluation for: Klever Holguin a 78 y.o. male. Procedure(s): COLONOSCOPY,SCREENING (VU 3.26) Patient Active Problem List Diagnosis Date Noted Severe protein-calorie malnutrition 12/20/2022 Splenic laceration 12/13/2022 Weight loss, unintentional 08/02/2020 Heavy smoker 08/02/2020 COPD (chronic obstructive pulmonary disease) 08/02/2020 Chronic back pain 04/25/2015 Tremor, essential 03/27/2011 Ulnar neuropathy History of nephrolithiasis Obstructive sleep apnea Past Medical History: Diagnosis Date History of migraines History of nephrolithiasis Obstructive sleep apnea Tremor, essential Ulnar neuropathy Past Surgical History: Procedure Laterality Date IR ARTERIOGRAM/EMBOLIZATION- SPLENIC 12/15/2022 IR Arteriogram/Embolization - Splenic 12/15/2022 Peter Munoz MD [facility] INTERVENTIONL RAD Social History Tobacco Use Smoking status: Every Day Current packs/day: 0.00 Average packs/day: 0.5 packs/day for 60.0 years (30.0 ttl pk-yrs) Types: Cigarettes Start date: 07/1960 Last attempt to quit: 07/2020 Years since quittin.4 Smokeless tobacco: Never Tobacco comments: taking chantix, trying to quit Substance Use Topics Alcohol use: No Social History Substance and Sexual Activity Drug Use No Allergies Allergen Reactions Aspirin Nausea And Vomiting Medications: MAR and/or home medications have been reviewed. Physical Exam: Preprocedure Vitals Current as of 01/12/24 1556 No BP, pulse, respiration, SpO2, or temperature recorded. Height: Weight: BMI: IBW: Airway Assessment: Mallampati: I Cardiovascular Assessment: system normal Pulmonary Assessment: (+) rhonchi Dental Assessment: (+) edentulous Misc Assessment: Patient is wearing No contact(s). IV access: Peripheral line Last Filed Perioperative Cognitive Screening Value Time User 4AT TOTAL Score: 1 12/25/2022 8:00 AM Brayan Sosa RN Anesthesia Plan: ASA 3 MAC, with a(n) intravenous induction 78 y/o here for colonoscopy PMH: COPD, smoker, ROE, tremor PSH: splenic lac Plan : Heavy smoker does not take nebs at home and is not on oxygen. May give post op duoneb requires anesthesia to mitigate those risks. Medical chart reviewed thoroughly with particular attention paid to conditions that immediately impact perioperative care and planning, including, but not limited to, cardiac, respiratory, hematological, and vascular conditions. Risks/benefits discussed with patient including, but not limited to, de ntal/airway/lip injury, vascular injury, nerve injury, thrombosis, eye injury, awareness, CVA, cardiac arrest, , adverse drug reactions, among others. All questions answered to her satisfaction. PLAN: MAC w GA backup. Std monitors PIV Region - Other Informed Consent: Anesthetic plan and risks discussed with patient. Plan discussed with CURRICULUM AND INSTRUCTION DIRECTOR. Anesthesia Screening documented in this encounter Plan of Treatment Not on file documented as of this encounter Visit Diagnoses Not on filedocumented in this encounter Administered Medications Inactive Administered Medications - up to 3 most recent administrations Medication Order MAR Action Action Date Dose Rate Site lactated ringers infusion Intravenous, CONTINUOUS PRN, Starting on Fri01/13/24 at 0943, Until Fri01/13/24 at 1036, Anesthesia Intra-op New Bag 01/13/2024 9:43 AM EDT lidocaine (pf) (Xylocaine) (20 mg/mL) 2% injection syringe Intravenous, PRN, Starting on Fri01/13/24 at 1000, Until Fri01/13/24 at 1036, Anesthesia Intra-op, Routine Given 01/13/2024 10:00 AM EDT 30 mg PHENYLephrine in NS (PF) (ASH-SYNEPHRINE) 0.8 mg/10 mL (80 mcg/mL) multi-dose injection Syringe Intravenous, PRN, Starting on Fri01/13/24 at 1015, Until Fri01/13/24 at 1036, Anesthesia Intra-op, Routine Given 01/13/2024 10:19 AM EDT 80 mcg Given 01/13/2024 10:15 AM EDT 80 mcg propofoL (Diprivan) (10 mg/mL) infusion Intravenous, CONTINUOUS PRN, Starting on Fri01/13/24 at 1000, Until Fri01/13/24 at 1036, Anesthesia Intra-op, Routine Rate/Dose Change 01/13/2024 10:19 AM EDT 50 mcg/kg/min 17.01 mL/hr Rate/Dose Change 01/13/2024 10:16 AM EDT 100 mcg/kg/min 34 .02 mL/hr Rate/Dose Change 01/13/2024 10:11 AM EDT 110 mcg/kg/min 37 .422 mL/hr propofoL (Diprivan) 10 mg/mL bolus injection (Anesthesia) Intravenous, PRN, Starting on Fri01/13/24 at 1000, Until Fri01/13/24 at 1036, Anesthesia Intra-op Given 01/13/2024 10:00 AM EDT 50 mg documented in this encounter Care Teams Circulation Man Relationship Specialty Start Date End Date Peter Boone MD PCP - General Family Medicine 07/27/20 01/29/24 documented as of this encounter
--- OUTSIDE RECORDS SUMMARY | 2024-04-30 06:48 | XMS_ITS | Encounter Summary ---
Author Organization [facility] Address [facility] [place] [address] Care Team Providers Care Saturator Operator Name Role Phone Peter Boone MD Primary Care Provider [phone] Encounter Details Date Type Department Care Team (Late st Contact Info) Description 12/13/2022 11:10 PM EDT Ancillary Procedure Radiology Library at [facility] [place] [address] Social History Tobacco Use Types Packs/Day Years Used Date Smoking Tobacco: Former Cigarettes 1.5 60 0 07/1960 - 07/2020 Smokeless Tobacco: Never Comments:taking chantix, try ing to quit Alcohol Use Standard Drinks/Week Comments No 0 (1 standard drink = 0.6 oz pur e alcohol) [facility] Inpatient Questions Answer Date Recorded Does Anyone [...] Comments REQUEST FOR 2ND READ CT HEAD AND SPINE STAT 12/13/2022 10:56 PM EDT documented in this encounter Results [...] who have questions please contact the health chiropractic care that requested your imaging first. ? Narrative 12/14/2022 9:22 AM EDT EXAMINATION: REQUEST FOR 2ND READ CT HEAD AND SPINE CLINICAL HISTORY: s/p fall from ladder; Sending Institution [facility]; Date of exam 20221208; I believe a reinterpretation of this exam may alter care of Patient. Yes TECHNIQUE: CT head, face and cervical spine were obtained at [facility] on 12/08/2022 COMPARISON: CT head [...] HISTORY: s/p fall from ladder; Sending Institution [facility]; Date ofexam [id number]; I believe a reinterpretation of this exam may alter care ofPatient. Yes TECHNIQUE: CT head, face and cervical spine were obtained at [facility] on 12/08/2022 COMPARISON: CT [...] patients who have questions please contactthe health chiropractic care that requested your imaging first. Libra Dykes [...] eligible for precaution removal: 12/19/22 Please call [phone] with questions. 12/16/2022 12/16/2022 12/19/2022 11:39 AM EDT documented as of this encounter Care Teams Saturator Operator Relationship Specialty Start Date End Date Peter Boone MD PCP - General Family Medicine 07/27/20 01/29/24 documented as of this encounter
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
--- OUTSIDE RECORDS SUMMARY | 2024-04-30 06:49 | XMS_ITS | Encounter Summary ---
Author Organization [facility] Address [facility] [place] [address] Care Team Providers Care Group Dynamics Instructor Name Role Phone Peter Boone MD Primary Care Provider [phone] Encounter Details Date Type Department Care Team (Late st Contact Info) Description 12/01/2022 [place] [address] Calixto Young MD [facility] [place] [address] Social History Tobacco Use Types Packs/Day Years [...] encounter Miscellaneous Notes * Telephone Encounter - Calixto Young MD - 12/01/2022 11:39 AM EDT Transfer center call [facility] Patient is a 77-year-old male who fell roughly 10 feet backwards off a ladder landing on his back. Admitted to [facility] due to splenic bleed. On salas scan it was noted patient has a left L5 transverse process fracture, minimally displaced and possible T1, T2 superior endplate fractures. Discussed it is difficult to assess if these endplate fractures are acute or chronic as they have very minimal displacement in the endplate are sclerotic. The L5 transverse process fracture is minimally displaced and no other evidence of instability within the lumbar spine. Discussed there are strong ligaments between the L5 vertebrae transverse processes in the pelvis which are concerning for occasional pelvis injury however SI joints look equal bilaterally and no pelvic fractures are noted. Patient may be activity as tolerated, no bracing needed, he should avoid strenuous activities, bending, lifting heavy objects, or twisting. No spine follow-up needed unless patient has continued issues. documented in this encounter Plan of Treatment Not on file documented as of this encounter Visit Diagnoses Not on filedocumented in this encounter Care Teams Group Dynamics Instructor Relationship Specialty Start Date End Date Peter Boone MD PCP - General Family Medicine 07/27/20 01/29/24 documented as of this encounter
--- OUTSIDE RECORDS SUMMARY | 2024-04-30 06:49 | XMS_ITS | Clinical Summary ---
Author Organization [facility] Address [address] [place] [address] Care Team Providers Care Switch Box Installer Name Role Phone Peter Boone MD Primary Care Provider [phone] Allergies No known active allergies Medications Medication Sig Dispensed Refills Start Date End Date Status acetaminophen (TYLENOL) 325 mg tablet Take 2 Tablets by mouth every 6 hours as needed for Pain. 12/25/2022 Active aspirin 81 mg EC tablet Take 1 Tablet by mouth daily. Active Cholecalciferol, Vitamin D3, 50 mcg capsule Take 1 Capsule by mouth daily. Active primidone (MYSOLINE) 250 mg tablet Take 1 Tablet by mouth 3 times daily. Give with 50mg tab to equal total dose of 300mg 10/21/2022 Active primidone (MYSOLINE) 50 mg tablet Take 1 Tablet by mouth 3 times daily. Give with 250mg tab to equal total dose of 300mg 10/21/2022 Active methocarbamoL (ROBAXIN) 500 mg tablet Take 1 Tablet by mouth every 6 hours as needed for Muscle Spasms or Pain. 01/17/2023 Active Active Problems Problem Noted Date Diagnosed Date Sepsis without acute organ dysfunction ([facility]) 01/17/2023 Pneumonia 01/13/2023 Resolved Problems Problem Noted Date Diagnosed Date Resolved Date Sepsis ([facility]) 01/13/2023 01/17/2023 Medical History Medical History Date Comments Coronary atherosclerosis Social History Tobacco Use Types Packs/Day Years Used Date Smoking Tobacco: Unknown Tobacco Cessation:Counseling Given: Not Answered Alcohol Use Standard Drinks/Week Comments Not Currently 0 (1 standard drink = 0.6 oz pur e alcohol) PRAPARE - Transportation Answer Date Re corded In the past 12 months, has l ack of transportation kept you from medical appointments or from getting medications? No 10/2022 In the past 12 months, has l ack of transportation kept you from meetings, work, or from getting things needed for daily living? No 01/14/2023 Housing Stability Vital Sign Answer Fidencio e Recorded In the last 12 months, was t here a time when you were not able to pay the mortgage or rent on time? No 01/14/2023 [address] Lived in the Last Year Not on f ile 01/14/2023 In the last 12 months, was t here a time when you did not have a steady place to sleep or slept in a intermediate (including now)? No 01/14/2023 Interpersonal Safety Answer Date Record ed Physically Hurt Never 05/03/2020 Verbally Threaten Not on file 05/03/2020 Sex and Gender Information Value Date Recorded Sex Assigned at Not on file Gender Identity Not on file Sexual Orientation Not on file Obstetrics History Last Filed Vital Signs Vital Sign Reading Time Taken Comments Blood Pressure 127/84 01/17/2023 0545 EDT Pulse 83 01/13/2023 1722 EDT Temperature 36.8 ??C (98.3 ??F) 01/17/2023 0545 EDT Respiratory Rate 12 01/17/2023 0545 EDT Oxygen Saturation 95% 01/17/2023 0545 EDT Inhaled Oxygen Concentration - - Weight 53.7 kg (118 lb 6.4 oz) 01/13/2023 1817 E DT Height 175.3 cm (5' 9) 01/13/2023 1817 EDT Body Mass Index 17.48 01/13/2023 1817 EDT Plan of Treatment Health Maintenance Due Date Last Done Comments RSV Immunization ( o r 60+ Years) (1 - 1-dose 60+ series) 2007 Fall Risk Screening 11/02/2012 COVID-19 Vaccine (2022- season) 2023 Hepatitis C Screen Completed 08/05/2023 Procedures Procedure Name Priority Date/Time Associated Diagnosis Comments HEPATITIS C AB W REFLEX TO HCV RNA BY PCR Routine 08/05/2023 14:20 EST from Last 3 Months or Most Recently Relevant to Health Maintenance Results * HEPATITIS C AB W REFLEX TO HCV RNA BY PCR (08/05/2023 14:20 EST) Hep C Antibody Negative Negative 08/06/2023 18:48 EST [facility] Blood VENOUS BLOOD / Unknown 08/05/2023 14:20 EST 08/06/2023 16:48 EST Provider Outr Resulting Lab CHEMISTRY & BLOOD GAS ORDERABLES [facility] [address] [place] [address] from Last 3 Months or Most Recently Relevant to Health Maintenance Klever oHlguin E Personal/Famil y Self 1945 [address] [place] [address] [address] Klever Holguin E Personal/Famil y Self 1945 [address] [place] [address] [place] [address] Klever Holguin E Personal/Famil y Self 1945 [address] [place] [address] [place] [address] Klever Holguin E Personal/Famil y Self 1945 [address] [place] [address] [place] [address] Klever Holguin E Personal/Famil y Self 1945 [address] [place] [address] [place] [address] Klever Holguin E Personal/Famil y Self 1945 [address] [place] [address] [place] [address] Klever Holguin E Personal/Famil y Self 1945 [address] [place] [address] Advance Directives For more information, please contact: [phone] * Limitation of Treatment (Latest Code Status on File) Date Activated Date Inactivated Comments 01/13/2023 18:16 01/17/2023 16:43 Question Answer Comments When the patient has NO PULSE: DNR When the patient HAS A PULSE and is in respiratory distress/failure: Do not intubate (DNI) Who Made the Decision? Affirmed Current DNR/COLS T Order Care Teams Switch Box Installer Relationship Specialty Start Date End Date Peter Boone MD [address] [place] [address] PCP - General 04/24/20
--- OUTSIDE RECORDS SUMMARY | 2024-04-30 06:49 | XMS_ITS | Encounter Summary ---
Author Organization [facility] Address [address] [place] [address] Care Team Providers Care Unishear Operator Name Role Phone Unavailable Primary Care Provider Unavailabl e Encounter Details Date Type Department Care Team (Latest Contact Info) Description 04/14/2009 19:18 EDT - 04/14/2009 19:19 EDT Hospital Encounter [facility] - Other [address] [place] [address] Noam Irizarry, DO [address] [place], [place] [id number] Discharge Disposition: Home or Self Care Social History Tobacco Use Types Packs/Day Years Used Date Smoking Tobacco: Never Assessed Sex and Gender Information Value Date Recorded Sex Assigned at Not on file Gender Identity Not on file Sexual Orientation Not on file documented as of this encounter Discharge Disposition Disposition Code Departure Means Destination Home or Self Care documented in this encounter Plan of Treatment Not on file documented as of this encounter Visit Diagnoses Not on filedocumented in this encounter
--- OUTSIDE RECORDS SUMMARY | 2024-04-30 06:49 | XMS_ITS | Referral Summary ---
Author Organization [facility] Address [address] [place] [address] Care Team Providers Care Training Systems Officer Name Role Phone Peter Boone MD Primary Care Provider [phone] Allergies No known active allergies Medications Medication [...] Diagnosed Date Sepsis without acute organ dysfunction ([facility]) 01/17/2023 Pneumonia 01/13/2023 Resolved Problems Problem Noted Date Diagnosed Date Resolved Date Sepsis ([facility]) 01/13/2023 01/17/2023 Social History Tobacco Use Types Packs/Day Years [...] place to sleep or slept in a fci (including now)? No 01/14/2023 Interpersonal Safety Answer [...] Body Mass Index 17.48 01/13/2023 1817 EDT Functional Status Functional Status Response Date of Assess ment Are you deaf or do you have serious difficulty h earing? Yes 01/13/2023 Are you blind or do you have serious difficulty seeing, even when wearing glasses? No 01/13/2023 Do you have serious difficul ty walking or climbing stairs? (5 years old or older) Yes 01/13/2023 Do you have difficulty dress ing or bathing? (5 years old or older) No 01/13/2023 Because of a physical, menta l, or emotional condition, do you have difficulty doing errands alone such as visiting a doctor's office or shopping? (15 years old or older) Yes 01/13/2023 Cognitive Status Response Date of Assessm ent Because of a physical, menta l, or emotional condition, do you have serious difficulty concentrating, remembering, or making decisions? (5 years old or older) No 01/13/2023 Plan of Treatment Not on file Procedures Procedure Name Priority Date/Time Associated Diagnosis Comments HEPATITIS C AB W REFLEX TO HCV RNA BY PCR Routine 08/05/2023 14:20 EST from Last 3 Months or Most Recently Relevant to Health Maintenance Results * HEPATITIS C AB W REFLEX TO HCV RNA BY PCR (08/05/2023 14:20 EST) Hep C Antibody Negative Negative 08/06/2023 18:48 EST [facility] Blood VENOUS BLOOD / Unknown 08/05/2023 14:20 EST 08/06/2023 16:48 EST Provider Outr Resulting Lab CHEMISTRY & BLOOD GAS ORDERABLES [facility] [address] [place] [address] from Last 3 Months or Most Recently Relevant to Health Maintenance [address] [place] [address] [address]Klever Levin Personal/Famil y Self 1945 [address] [place] [address] [address]Klever Chung Personal/Famil y Self 1945 [address] [place] [address] [address]Klever Levin Personal/Famil y Self 1945 [address] [place] [address] [address]Klever Levin Personal/Famil y Self 1945 [address] [place] [address] [place] [address] Rockykrisitne, Edward E Personal/Famil y Self 1945 [address] [place] [address] [place] [address] Rockytpaloma, Edward E Personal/Famil y Self 1945 [address] [place] [address] [place] [address] Rockytpal[place], Edward E Personal/Famil y Self 1945 [address] [place] [address] [place] [address] Advance Directives For more information, please contact: [phone] * Limitation of Treatment (Latest Code Status on File) Date Activated Date Inactivated Comments 01/13/2023 18:16 01/17/2023 16:43 Question Answer Comments When the patient has NO PULSE: DNR When the patient HAS A PULSE and is in respiratory distress/failure: Do not intubate (DNI) Who Made the Decision? Affirmed Current DNR/COLS T Order Care Teams Training Systems Officer Relationship Specialty Start Date End Date Peter Boone MD [address] [place] [address] PCP - General 04/24/20
--- OUTSIDE RECORDS SUMMARY | 2024-04-30 06:49 | XMS_ITS | Encounter Summary ---
Author Organization [facility] Address [address] [place] [address] Care Team Providers Care Nurse Orthopedic Name Role Phone Unknown, Provider Primary Care Provider [phone] Encounter Details Date Type Department Care Team (Late st Contact Info) Description 01/29/2016 Results Only [facility] [phone] Noam Taveras, DO [address] [facility] [address] [place], [place] [id number] Social History Tobacco Use Types Packs/Day Years Used Date Smoking Tobacco: Never Assessed Sex and Gender Information Value Date Recorded Sex Assigned at Not on file Gender Identity Not on file Sexual Orientation Not on file documented as of this encounter Plan of Treatment Not on file documented as of this encounter Procedures Procedure Name Priority Date/Time Associated Diagnosis Comments SURGICAL PATHOLOGY Routine 01/29/2016 20 :46 EDT documented in this encounter Results * SURGICAL PATHOLOGY (01/29/2016 20:46 EDT) Pathology Report: SURGICAL PATHOLOGY REPORT Reports generated via electronic interface contain original data; however they are lacking the format of the original report. Caution should be taken when reading/interpret ing unformatted reports. Name: ? FRANSISCAKLEVER IRBY ? Accession #: ? [id number] ? : ? 1945 (Age: 70) ??M ? Collect Date: ? 01/29/2016 ? Location: ? [facility] ? Receive Date: ? 01/29/2016 ? Provider: NOAM TAVERAS DO Copy to: VERO IBRAHIM MD ? Final Pathologic Diagnosis: A. COLON, TRANSVERSE POLYPS X 3, BIOPSY: - ??Tubular adenomas (x3). B. COLON, ASCENDING POLYP, BIOPSY: - ??Tubular adenoma. Document reviewed and electronically signed by: KEERTHI ANTUNEZ MD Report ??Date: 01/31/2016 09:47 By the signature above, the attending physician certifies that he/she has personally conducted a gross and/or microscopic examination of the described specimens and rendered or confirmed the above diagnosis. Specimen(s) Received: A. ??Transverse colon polyp x3 B. ??Ascending colon polyp Clinical History: Hx colon polyps/family hx colon cancer Gross Description: A. ?Received in formalin labelled with proper patient identification (initials S, E) and transverse colon polyp x3 are three pink-rivas polypoid tissues (0.3 x 0.2 x 0.1 cm to 0.5 x 0.3 x 0.2 cm). The margins are inked black. Entirely submitted as follows: BLOCK CALDWELL A1- ??two smaller tissues, intact A2- ??largest polyp, bisected B. ?Received in formalin labelled with proper patient identification (initials S, E) and ascending colon polyp are two pink-rivas polypoid tissues (0.3 x 0.3 x 0.2 cm each). The margins are inked black. ??Submitted intact in block B1. Yasemin Francois 01/30/2016 8:49 AM End of Report [facility] 01/29/2016 20:4 6 EDT 01/29/2016 20:46 EDT Noam Taveras DO PATHOLOGY ORDER [facility] [address] [place] [address] documented in this encounter Visit Diagnoses Not on filedocumented in this encounter Care Teams Nurse Orthopedic Relationship Specialty Start Date End Date Unknown, Provider, PCP - General 04/19/09 04/23/20 documented as of this encounter
--- OUTSIDE RECORDS SUMMARY | 2024-04-30 06:49 | XMS_ITS | Encounter Summary ---
[place] [address] Care Team Providers Care Clay Plant Treater Name Role Phone Nabila Blanc BRITTANY Primary Care Provider [phone] Reason for Referral * Diagnostic Test (Routine) - Closed Specialty Diagnoses / Procedures Referred By Quanac t Referred To Contact Radiology Diagnoses Tongue mass Smoker Pharyngeal dysphagia Weight loss Procedures NM PET CT Standard Plus Head and Neck Fracisco Belle DO [address] [place] [address] [place] [address] Referral ID Status Reason Start Date Expiration Date V isits Requested Visits Authorized [id number] Closed Specialty Service Requested 06/05/2020 12/03/2021 1 1 Reason for Visit * Diagnostic Test (Routine) - Closed Specialty Diagnoses / Procedures Referred By Contac t Referred To Contact Radiology Diagnoses Tongue mass Smoker Pharyngeal dysphagia Weight loss Procedures NM PET CT Standard Plus Head and Neck Fracisco Belle DO [address] [place] [address] [place] [address] Referral ID Status Reason Start Date Expiration Date V isits Requested Visits Authorized [id number] Closed Specialty Service Requested 06/05/2020 12/03/2021 1 1 Encounter Details Date Type Department Care Team (Late st Contact Info) Description 06/23/2020 2:47 PM EST Hospital Encounter [place] [address] Fracisco Belle, DO [address] [place] [address] Tongue mass; Smoker; Pharyngeal dysphagia; Weight loss Discharge Disposition: Home Social History Tobacco Use [...] Sig Dispensed Refills Start Date End Date cholecalciferol, Vitamin D3, 2,000 unit Capsule Take [...] tablet Take 81 mg by mouth daily. documented as of this encounter Plan of Treatment Not on file documented as of this encounter Procedures Procedure Name Priority Date/Time Associated Diagnosis Comments NM PET CT STANDARD PLUS HEAD AND NECK Routine 06/23/2020 4:11 PM EST Tongue mass Smoker Pharyngeal dysphagia Weight loss documented in this encounter Results * NM PET CT Standard Plus Head and Neck (06/23/2020 4:11 PM EST) Anatomical Region Laterality Modality Positron Emissio n Tomography (PET) Impressions 06/24/2020 8:07 PM EST 1. ??Mild asymmetrically increased activity in the left lateral pharyngeal wall, which is a nonspecific finding that may represent asymmetric lymphoid hyperplasia or inflammation, however, a neoplastic etiology is not excluded. Recommend direct visualization. 2. ??No metabolic abnormality is seen within the tongue and there is no significant adenopathy in the neck. Thank you for letting us participate in the care of this patient. For questions regarding this report, please contact the number below. ? Narrative 06/24/2020 8:07 PM EST EXAMINATION: NM PET CT STANDARD PLUS HEAD AND NECK CLINICAL HISTORY: mass on tongue, vasular fullness, heavy tobacco use, pharyngeal dyphagia , neck fullness TECHNIQUE: Following IV injection of 83-wehjbg-7-deoxyglucose (FDG) a standard uptake of approximately 60 minutes, a noncontrast CT scan followed by a PET scan were acquired from the top of head to mid thighs. The noncontrast CT was used for anatomic localization and photon attenuation correction of the PET scan. Blood glucose level: 96 (mg/dL) FDG dose: 8.6 mCi COMPARISON: None FINDINGS: HEAD/NECK: Mild asymmetrically increased activity in the left lateral pharyngeal wall (axial image 66) which is a nonspecific finding. Linear activity in the prevertebral longus colli muscles and in the left longus capitis muscle colli, consistent with normal variant muscular tension or strain. Specifically, there is no metabolic abnormality within the tongue musculature. No significant adenopathy is present. Mildly FDG avid partial opacification of the left maxillary sinus is consistent with chronic sinus disease. CHEST: Small mildly increased activity in the bilateral hilar regions is consistent with benign reactive nodes. Normal activity in all other soft tissue regions. No significant pulmonary nodules. Diffuse emphysematous change with upper lobe predominance. Coronary and aortic calcifications are present. ABDOMEN/PELVIS: Normal activity in all soft tissue regions. No significant adenopathy. Incidental CT findings of large calcified gallstone, diffuse vascular calcifications, and a large loculated left renal cyst. SKELETON/EXTREMITIES: No significant osseous abnormalities. A small focus of activity at the medial margin of the left humeral head/neck junction is consistent with tendinopathy. Right clavicle fixation hardware present. Procedure Note Nathan Dyer MD - 06/24/2020 EXAMINATION: IA PET CT STANDARD PLUS HEAD AND NECK CLINICAL HISTORY: mass on tongue, vasular fullness, heavy tobacco use, pharyngeal dyphagia , neck fullness TECHNIQUE: Following IV injection of 28-mjnxmv-6-deoxyglucose (FDG) astandard uptake of approximately 60 minutes, a noncontrast CT scan followed by aPET scan were acquired from the top of head to mid thighs. The noncontrast CT wasused for anatomic localization and photon attenuation correction of the PETscan. Blood glucose level: 96 (mg/dL) FDG dose: 8.6 mCi COMPARISON: None FINDINGS: HEAD/NECK: Mild asymmetrically increased activity in the left lateral pharyngealwall (axial image 66) which is a nonspecific finding. Linear activity in the prevertebral longus colli muscles and in the leftlongus capitis muscle colli, consistent with normal variant muscular tension orstrain. Specifically, there is no metabolic abnormality within the tonguemusculature. No significant adenopathy is present. Mildly FDG avid partial opacification of the left maxillary sinus isconsistent with chronic sinus disease. CHEST: Small mildly increased activity in the bilateral hilar regions isconsistent with benign reactive nodes. Normal activity in all other soft tissueregions. No significant pulmonary nodules. Diffuse emphysematous change with upperlobe predominance. Coronary and aortic calcifications are present. ABDOMEN/PELVIS: Normal activity in all soft tissue regions. No significant adenopathy. Incidental CT findings of large calcified gallstone, diffuse vascular calcifications, and a large loculated left renal cyst. SKELETON/EXTREMITIES: No significant osseous abnormalities. A small focus of activity at themedial margin of the left humeral head/neck junction is consistent withtendinopathy. Right clavicle fixation hardware present. IMPRESSION 1. Mild asymmetrically increased activity in the left lateral pharyngealwall, which is a nonspecific finding that may represent asymmetric lymphoid hyperplasia or inflammation, however, a neoplastic etiology is notexcluded. Recommend direct visualization. 2. No metabolic abnormality is seen within the tongue and there is no significant adenopathy in the neck. Thank you for letting us participate in the care of this patient. Forquestions regarding this report, please contact the number below. Frcaisco Adler Yoshi DO IMG PET ORDERAB LES documented in this encounter Visit Diagnoses Diagnosis Tongue mass Swelling, mass, or lump in head and neck Smoker Tobacco use disorder Pharyngeal dysphagia Dysphagia, pharyngeal phase Weight loss Loss of weight documented in this encounter Administered Medications Inactive Administered Medications - up to 3 most recent administrations Medication Order MAR Action Action Date Dose Rate Site fludeoxyglucose (F-18) FDG injection 0-20 mCi 0-20 mCi, Intravenous, ONCE PRN, 1 dose, Starting on Fri06/23/20 at 1516, Until Fri06/23/20 at 1502, Per Protocol, Radiology Contrast, Routine Given 06/23/2020 3:02 PM EST 8.6 mCi documented in this encounter Care Teams Clay Plant Treater Relationship Specialty Start Date End Date Nabila Blanc, BRITTANY PCP - General 12/25/11 07/26/20 documented as of this encounter
--- OUTSIDE RECORDS SUMMARY | 2024-04-30 06:49 | XMS_ITS | Encounter Summary ---
Author Organization [facility] Address [facility] [place] [address] Care Team Providers Care Laborer Heading Name Role Phone Nabila Blanc APRN Primary Care Provider [phone] Reason for Visit * Reason Comments Skin Lesion Encounter Details Date Type Department Care Team (Late st Contact Info) Description 12/25/2011 8:30 AM EDT [place] [address] Indy Bear MD [facility] [address] [address] Skin lesion (Primary Dx); Other seborrheic keratosis Discharge Disposition: Home Social History Tobacco Use Types Packs/Day Years Used Date Smoking Tobacco: Every Day Cigarettes 0.3 50 Smokeless Tobacco: Never Alcohol Use Standard Drinks/Week Comments No 0 (1 standard drink = 0.6 oz pur e alcohol) Sex and Gender Information Value Date Recorded Sex Assigned at Not on file Gender Identity Not on file Sexual Orientation Not on file documented as of this encounter Progress Notes * Indy Bear MD - 12/25/2011 8:39 AM EDT DERMATOLOGY SPOT-CHECK Date of service: 12/25/2011 Marckmelanie Holguin : 1945 Provider: Indy Bear MD PROBLEM: Spot to check Chief Complaint Patient presents with ??? Skin Lesion The patient is seen at the request of Nabila Blanc, who instructed the patient to be seen for evaluation of above SKIN HX: No personal history of skin cancer HPI Emi Reynaldo Shakristine is a 66 y.o. year old male. c/o a few spots of concern. C/o a lesion on his nose, sometimes will scab up, states he picks at it. States he has a similar lesion on his L forearm C/o a spot on the top of his scalp, x 1 weeks ago Seen for one spot-check at this apointment. Knows this is a one-spot check clinic only. Knows will need to make appointment for full skin check if desired or to have other areas checked. ADR: Allergies Allergen Reactions ??? Aspirin Nausea And Vomiting MEDS: Current outpatient prescriptions ordered prior to encounter Medication Sig Dispense Refill ??? gabapentin (NEURONTIN) 300 mg capsule Take 300 mg by mouth 3 times daily. ??? primidone (MYSOLINE) 250 mg tablet Take 250 mg by mouth 2 times daily. And 100 mg nightly ??? propranolol (INDERAL) 80 mg tablet Take 80 mg by mouth 2 times daily. ??? aspirin 81 mg EC tablet Take 81 mg by mouth daily. ROS General: feeling well EXAM A focused skin exam of the concerning spot was performed. General: NAD, pleasant, cooperative Focused exam of skin: A focused skin exam was performed. Skin findings: A. 0.1 cm heme crust papule located on R anterior scalp B. Verrucous hyperkeratotic papule 0.4 cm on nasal dorsum C.Two brown papules with waxy, stuck-on appearance. Milia-like cysts, comedone- like openings and/orfissuring on dermoscopy located on L forearm and L dorsal hand ASSESSMENT/PLAN: A. Non-specific. Favor inflammatory. Patient instructed to return to clinic for re-evaluation of area if notes change, growth, bleeding, etc. B.Wart vs. AK r/o SCC Procedure: Skin biopsy. Location: nasal dorsum Discussed indications for procedure and expectations including risks and benefits. Verbal consent obtained. Skin prep with alcohol. Local anesthesia with 1% xylocaine, 1/100,000 epinephrine, 0.1 mEq/mL bicarbonate. A sample of the lesion was removed by shave technique to the level of the dermis andsubmitted to Pathology. Hemostasis obtained (AlCl and/or electrocautery). There were no complications; the pt. tolerated the procedure well. The wound was dressed. Post-procedure expectations, wound care and activity restrictions were reviewed. C.Seborrheic keratoses Follow-up based on pathology results, or prn Note initiated by: JULIETA ANAYA M.D. Section of Dermatology [facility] cc: Nabila Marguerite Blanc documented in this encounter Plan of Treatment Scheduled Orders Name Type Priority Associated Diagnoses Orde r Schedule Skin Biopsy Dermatology Routine Skin lesion Ordered: 12/25/2011 documented as of this encounter Procedures Procedure Name Priority Date/Time Associated Diagnosis Comments SURGICAL PATHOLOGY REPORT Routine 12/25/2011 10:21 AM EDT SPECIMEN TO PATHOLOGY (NON-OR) Routine 12/25/2011 8:41 AM EDT Skin lesion documented in this encounter Results * SURGICAL PATHOLOGY REPORT (12/25/2011 10:21 AM EDT) Surgical Pathology Report ? [facility] ? Provider: ?? INDY BEAR ? Pt. Name: ?? EMI HOLGUIN ? Acc #: ? Pt. ? Col Date: ?? 12/25/2011 ? /Sex: ?1945,(66 years),Male ? Rec Date: ?? 12/25/2011 ? LOC: ?4M ? SURGICAL PATHOLOGY ? ---Pathologic Diagnosis--- ? Skin, nasal dorsum, shave biopsy: ?Small fragments of squamous epithelium, suggestive of verrucous ? architecture (see Comment). ? CR-0 ? 12/26/11 ? AJE ? 12/26/11 Verified by: ? Barber CHAO, PhD, Lois ? Dermatopathologist ? (Electronic Signature) ? The attending pathologist whose signature appears on this report has ? reviewed all diagnostic slides and has edited the gross and/or ? microscopic portion of the report in rendering the final pathologic ? diagnosis. ? ---Comment--- ? This may be top of a wart; However, only a superficial portion of the ? lesion is present in the specimen. Base of the lesion is not seen, ? therefore a definite diagnosis cannot be warranted. Follow up is ? recommended with re-biopsy if there is persistent or recurrent lesion, or ? if clinically indicated. Multiple deeper levels have been examined. ? ---Microscopic Description--- ? Slides reviewed, microscopic description not recorded. ? ---Gross Description--- ? Labeled/Fixative: ? Labeled with the patient's name and medical ? record number, formalin. ? Qty/Size/Weight: ?Single shave, 0.5 x 0.4 cm, white, unoriented, with ? an eccentric, 0.2-cm, ill-defined, yellow, slightly ? raised lesion. ? Sections/Processing: ??Inked. ??Bisected. ??(T1) aje/SHB ? ---Clinical Information--- ? Specimen Submitted: ? A - Skin, nasal dorsum, shave biopsy (1) ? Clinical History/Diagnosis: ? Verrucous hyperkeratotic papule 0.4 cm / wart vs AK R/O SCC CERNER MIANENNIUM 12/25/2011 10:2 1 AM EDT Indy Bear MD PATHOLOGY/CYTOLOGY O JL Performing Organization Address City/[facility] Co de Phone Number RORY ESQUIVEL * Specimen to Pathology (NON-OR) (12/25/2011 8:41 AM EDT) AP Specimen 12/25/2011 8:41 AM EDT 12/25/2011 8:41 AM EDT Narrative MUNADARYL ALMEIDAIUM - 12/25/2011 8:41 AM EDT Specimen requisition ordered. ??Separate Pathology report to follow Indy Bear MD PATHOLOGY/CYTOLOGY O JL Performing Organization Address [facility] Co de Phone Number RORY ESQUIVEL documented in this encounter Visit Diagnoses Diagnosis Skin lesion- Primary Unspecified disorder of skin and subcutaneous tissue Other seborrheic keratosis documented in this encounter Care Teams Laborer Heading Relationship Specialty Start Date End Date Nabila Blanc APRN PCP - General 12/25/11 07/26/20 documented as of this encounter
--- OUTSIDE RECORDS SUMMARY | 2024-04-30 06:49 | XMS_ITS | Encounter Summary ---
Author Organization [facility] [place] [address] Care Team Providers Care Gang Miner Name Role Phone Peter Boone MD Primary Care Provider [phone] Encounter Details Date Type Department Care Team (Late st Contact Info) Description 07/27/2020 Telephone Otolaryngology at [facility] [place] [address] Taniya Escoto Social History Tobacco Use Types Packs/Day Years [...] encounter Miscellaneous Notes * Telephone Encounter - Taniya Escoto - 07/27/2020 5:39 PM EST Called to [facility] to see BG on 08/01 at 4pm. He had a very hard time hearing me and said he had to check with his daughter who would have to bring him. I asked if he wanted me to call her and talkto her directly and he said yes. Her name is Maria Esther Arteaga @[phone]. There is scanned docs from [facility] that she does have authorization to speak to them, I got verbal permission for now and we would want a signed personal rep form for us when patient comes in. I left a detailed message asking her to call us on 07/28 and ask for Alejandra (I am off) to confirm this appointment or re-schedule if itdoes not work. documented in this encounter Plan of Treatment Not on file documented as of this encounter Visit Diagnoses Not on filedocumented in this encounter Care Teams Gang Miner Relationship Specialty Start Date End Date Peter Boone MD PCP - General Family Medicine 07/27/20 01/29/24 documented as of this encounter
--- OUTSIDE RECORDS SUMMARY | 2024-04-30 06:49 | XMS_ITS | Encounter Summary ---
Author Organization [facility] Address [address] [place] [address] Care Team Providers Care Training Program Manager Name Role Phone Peter Boone MD Primary Care Provider [phone] Encounter Details Date Type Department Care Team (Late st Contact Info) Description 08/06/2023 Lab Requisition [facility] Pathology & Laboratory Medicine - [facility] [address], [place] [id number] Outr Resulting Lab, Provider Social History Tobacco Use Types Packs/Day Years Used Date Smoking Tobacco: Unknown Alcohol Use Standard Drinks/Week Comments Not Currently [...] place to sleep or slept in a halfway (including now)? No 01/14/2023 Interpersonal Safety Answer Date Record ed Physically Hurt Never 05/03/2020 Verbally Threaten Not on file 05/03/2020 Sex and Gender Information Value Date Recorded Sex Assigned at Not on file Gender Identity Not on file Sexual Orientation Not on file documented as of this encounter Functional Status Functional Status Response Date of [...] (5 years old or older) No 01/13/2023 documented as of this encounter Plan of Treatment Not on file documented as of this encounter Procedures Procedure Name Priority Date/Time Associated Diagnosis Comments HEPATITIS C AB W REFLEX TO HCV RNA BY PCR Routine 08/05/2023 14:20 EST documented in this encounter Results * HEPATITIS C AB W REFLEX TO HCV RNA BY PCR (08/05/2023 14:20 EST) Hep C Antibody Negative Negative 08/06/2023 18:48 EST [facility] Blood VENOUS BLOOD / Unknown 08/05/2023 14:20 EST 08/06/2023 16:48 EST Provider Outr Resulting Lab CHEMISTRY & BLOOD GAS ORDERABLES [facility] [address] [place] [address] documented in this encounter Visit Diagnoses Not on filedocumented in this encounter Care Teams Training Program Manager Relationship Specialty Start Date End Date Peter Boone MD [address] [place] [address] PCP - General 04/24/20 documented as of this encounter
--- OUTSIDE RECORDS SUMMARY | 2024-04-30 06:49 | XMS_ITS | Encounter Summary ---
Author Organization [facility] [place] [address] Care Team Providers Care Histologist Technologist Name Role Phone Nabila Blanc APRN Primary Care Provider [phone] Encounter Details Date Type Department Care Team (Late st Contact Info) Description 06/05/2020 Ancillary Procedure Radiology Library at [facility] [place] [address] Nabila Blanc, SPLICING MACHINE OPERATOR [employer] [address] [place] [address] Social History Tobacco Use Types Packs/Day Years [...] Associated Diagnosis Comments FILM LIBRARY STORAGE ONLY DX STUDY Routine 06/05/2020 12:00 AM EST documented in this encounter Results * Film Library- Storage Only DX Study (06/05/2020 12:00 AM EST) Narrative DEMETRA - 07/05/2020 9:16 AM EST This exam is auto-finalizing. It's purpose is for storage only. Nabila Blanc APRN IMG FILM LIBRARY OR DERABLES [facility] [place], [place] documented in this encounter Visit Diagnoses Not on filedocumented in this encounter Care Teams Histologist Technologist Relationship Specialty Start Date End Date Nabila Blanc APRN PCP - General 12/25/11 07/26/20 documented as of this encounter
--- OUTSIDE RECORDS SUMMARY | 2024-04-30 06:49 | XMS_ITS | Encounter Summary ---
Author Organization [facility] Address [address] [place] [address] Care Team Providers Care Kennel Assistant Name Role Phone Peter Boone MD Primary Care Provider [phone] Reason for Referral * Specialty Diagnoses / Procedures Referred By Nicol carranza Referred To Contact Paige Mitchell MD [address] [place] [phone] Referral ID Status Reason Start Date Expiration Date Visits Re quested Visits Authorized * Specialty Diagnoses / Procedures Referred By Nicol carranza Referred To Contact Paige Mitchell MD [address] [place] [phone] Referral ID Status Reason Start Date Expiration Date Visits Re quested Visits Authorized Reason for Visit * Reason Comments Altered Mental Status PT comes from [facility] via EMS c/o increased AMS & mobility issues within the last 24 hrs, per staff he is usually talkative. PT fell last injuring spine. DNR/DNI. * Auth/Cert (Routine) Specialty Diagnoses / Procedures Referred By Nicol carranza Referred To Contact Diagnoses Pneumonia Sepsis ([facility]) Referral ID Status Reason Start Date Expiration Date Visits Re quested Visits Authorized [id number] 01/13/2023 01/17/2023 1 1 Encounter Details Date Type Department Care Team (Late st Contact Info) Description 01/13/2023 9:51 EDT - 01/17/2023 14:43 EDT Hospital Encounter [facility] Medical / Surgical Department [address] [place] [address] Peter Alston MD [address] [place] [phone] Asad Perez PA-C [address] [place] [phone] Nata Parrish MD [address] [place] [address] Paige Mitchell MD [address] [place] [phone] Subhash Friedman MD [address] [place] [phone] Pneumonia (Primary Dx); Pneumonia of left lower lobe due to infectious organism; Sepsis without acute organ dysfunction, due to unspecified organism (HCC-CMS); Pneumonia due to infectious organism, unspecified laterality, unspecified part of lung Discharge Disposition: Nursing Facility (Skilled) Social History Tobacco Use Types Packs/Day Years [...] place to sleep or slept in a mcc (including now)? No 01/14/2023 Interpersonal Safety Answer [...] Body Mass Index 17.48 01/13/2023 1817 EDT documented in this encounter Functional Status Functional Status Response [...] No 01/13/2023 documented as of this encounter Discharge Summaries * Paige Mitchell MD - 01/17/2023 1324 EDT HOSPITAL MEDICINE DISCHARGE SUMMARY Primary Care Provider: Peter Boone Attending Physician: Asad Perez PA-C Admit Date: 01/13/23 Discharge Date: 01/17/2023 Disposition (location): rehab Condition at Discharge: Improved Reason for Admission (chief complaint): Altered mental status and weakness Principal/Final Diagnosis: Pneumonia Additional Problems Managed in the Hospital: Active Hospital Problems Diagnosis Date Noted ??? *Pneumonia 01/13/2023 Resolved Hospital Problems Diagnosis Date Noted Date Resolved ??? Sepsis ([facility]) ([facility]) 01/17/2023 01/17/2023 ??? Sepsis ([facility]) ([facility]) 01/13/2023 01/17/2023 Transition of care: [facility] Transition of Care report automatically routed to PCP office on discharge.Additional handoff communication performed via: Clinical Issues Needing Follow-up 1. Pertinent medication changes: Cefpodoxime through 01/19/2023 Propranolol held for soft blood pressures. No tremor apparent during hospital stay. Can resume as needed for tremor as blood pressure allows. Methocarbamol dose reduced and changed to as needed to minimize polypharmacy. Was tolerating lower dose during admission. 2. Recommended follow-up tests/procedures needed: Follow-up with physician at rehab 3. Anticoagulation on discharge: No 4. Changes to goals of care at time of discharge (if applicable): DNR/DNI Hospital Course: Per admission H+P: Klever Gallegos is a 77 y.o. male with a history of fall (approximately 30 days ago) with fractures of right L3, L4 and left L5 transverse fractures, fractures of T1-T3 vertebral bodies, nondisplaced right second through eighth rib fractures and left fourth rib fracture. He also had a splenic hematoma which was treated with embolization. He was hospitalized at [facility] and subsequently discharged to [facility] on 12/25/22. He was transferred to the [facility] ER 01/13/2023 as nursingstaff at his SNF felt that he was acutely altered and weak. Per history provided to ER provider patient is typically talkative and able to ambulate with a walker however has been very quiet and unable to get out of bed in the last 24 H. He is also apparently been having difficulty swallowing and oral intake has been been poor. Additionally BP have been low (apparently ??100 though baseline unclear). Patient has been receiving methocarbamol 750 mg 4 times a day at the SNF. Further past medical history was not available at the time of writing this note though he appears to be undergoing treatment for essential tremor with propranolol and primidone as well as vitamin D deficiency. ?? In the ER patient met sepsis criteria with a white blood cell count of 12.97 and respiratory rate of 26. Chest x-ray showed opacity at left lung base read as infiltrate versus atelectasis. CT head without contrast was unremarkable. Known fractures appreciated on CT neck and abdomen w/o acute changes. Lactic acid was nonelevated. UA was possibly suggestive of UTI with trace leukocyte esterase and bacteria/pyuria on microscopy although specimen was heavily contaminated with squames. VBG was within normal limits and CK was unremarkable. ECG was nonischemic. Patient received 2000 mg of cefepime as well as 1 L bolus of IVF. BP improved to 120/74 after receiving fluids. Per ER note CODE STATUS was discussed with patient and family member and preference was stated for DNR/DNI. ?? At time of admission visit patient reported he was just tired. He also complained of feeling thirsty and his mouth being dry. He denied significant pain in his back or ribs. He denied systemic symptoms, cough, sputum production, SOB, or chest pain. He did not endorse any paresthesia or focal weakness in extreamities. No lightheadedness or dizziness. He denied headaches, irritative voiding symptoms, or NVD. Following admission, patient demonstrated rapid clinical improvement. His encephalopathy and sepsisphysiology resolved. Urine culture ultimately resulted with greater than 100 K coag negative staph.With a low clinical suspicion for pseudomonal pneumonia, he was transitioned from cefepime to cefpodoxime on 01/15/2023 for the pneumonia versus possible urinary tract infection and continued to do well. He was evaluated by speech and language pathology and was deemed appropriate for a regular diet with thin liquids. Blood cultures remained negative to date at the time of discharge but is not yet finalized. Medication adjustments during his hospital stay include dose reduction in methocarbamol to minimize polypharmacy and sedating effects. He tolerated this for dose reduction well. Propranolol was also held for hypotension and he remained free from apparent tremor during his hospital stay. This was held at discharge but can be resumed in the outpatient setting if needed and tolerated from ablood pressure standpoint. He was discharged back to [facility] on 01/17/2023 in improved condition. Relevant Imaging/Procedures Performed: XR CHEST PORTABLE 1 VIEW 01/13/2023 11:05 AM ?? CLINICAL HISTORY/COMMENTS: sob, cough AMS; ?? COMPARISON: None. ?? TECHNIQUE: Single portable AP view of the chest. ?? FINDINGS: ?? Lines/tubes/devices: Lines and tubes in stable satisfactory position. ?? Lungs: Patchy opacity overlies the left base. The right lung is grossly clear. ?? Pleura: There is a small left pleural effusion. ?? Cardiac and mediastinal contours: Normal. ?? Soft tissues and extrathoracic findings: Normal. ?? Bones: Right clavicle hardware. Numerous chronic incompletely healed lateral left chest rib fractures are seen. ?? IMPRESSION ?? 1. Small left pleural effusion with patchy left base opacity which may reflect infiltrate or atelectasis. A follow-up chest x-ray in 2-3 months is recommended to assess for improvement. 2. Numerous lateral left chest wall incompletely healed but somewhat chronic rib fractures. CT Head INDICATION: recent fall, altered mental status; Mental status change, unknown cause; recent fall, altered mental status;. ?? COMPARISON: None. ?? TECHNIQUE: Noncontrast CT scan of the head was performed. Axial images and multiplanar reformationswere reviewed. ?? FINDINGS: ?? Brain: Global cerebral volume loss is consistent with patient's age. Decreased attenuation within the white matter tracts of both cerebral hemispheres is nonspecific but typically seen with small vessel disease/chronic white matter ischemic changes of aging. No intracranial hemorrhage or mass effect. No abnormal intra-axial or extra-axial fluid collections. ?? Ventricles: Mild ventriculomegaly consistent with global cerebral volume loss. ?? Paranasal Sinuses and Mastoids: The paranasal sinuses and mastoid air unremarkable as visualized. ?? Orbits: Bilateral scleral bands. Otherwise unremarkable. ?? Bones: Unremarkable. No fracture or suspicious bone lesions. ?? Soft tissues: The scalp and visualized facial soft tissues have normal appearances. ?? IMPRESSION No acute abnormality. CT cervical spine WO contrast INDICATION: recent fall, generalized weakness; recent fall, generalized weakness;. ?? COMPARISON: None. ?? TECHNIQUE: Noncontrast CT scan of the cervical spine was performed. Axial images and multiplanar reformations were reviewed. ?? FINDINGS: ?? There are acute anterior wedge fracture deformities of the superior endplates of T1 and T2 with minimal posterior bulge of the posterior cortex at both levels. There is a mild superior endplate compression deformity of T3 without retropulsed bony fragment. No severe bony spinal stenosis is present.No subluxation at these levels is present. ?? Degenerative disc disease and facet arthrosis is present throughout the cervical spine. There is minimal retrolisthesis of C4. The facet joints are intact. ?? The prevertebral soft tissues are normal. ?? The upper airway is patent. ?? There is severe paraseptal and centrilobular emphysema within the lung apices. ?? IMPRESSION 1. Mild acute anterior wedge fracture deformities of the superior endplates of T1 and T2 and mild superior endplate compression fracture deformity of T3. No significant spinal stenosis or subluxationis identified at these levels. 2. Degenerative spondylosis of the cervical spine. CT abdomen pelvis with contrast INDICATION: recent spleen lac with hemoperitoneum, now with altered mental status and leukocytosis,?intraabdominal infection; recent spleen lac with hemoperitoneum, now with altered mental status and leukocytosis, ?intraabdominal infection;. ?? COMPARISON: None.. ?? TECHNIQUE: CT scan of the abdomen and pelvis was performed with nonionic IV contrast. 100 mL of Omnipaque 350 was administered intravenously. Axial images and multiplanar reformations were reviewed. ?? FINDINGS: ?? Lower chest: Left pleural effusion and left lower lobe atelectasis/consolidation. ?? Liver: Normal. No hepatic mass or duct dilatation. Gallbladder: Multiple stones within the gallbladder. No cholecystitis. Normal caliber common bile duct. ?? Pancreas: Normal. No mass or duct dilatation. Spleen: 2 subcapsular low-density collections which communicate, each measuring 4.5 cm x 3.3 cm x 4.4 cm and 7.3 cm x 4.6 cm x 7.0 cm, consistent with resolving subcapsular hematomas. No active extravasation. Adrenal glands: Normal adrenal glands. ?? Kidneys and ureters: Multiple simple renal cysts bilaterally with 2 dominant left renal cysts measuring 8.9 cm and 8.3 cm. No renal stone or hydronephrosis. Urinary bladder: Multiple calcified stones within the urinary bladder. ?? Reproductive: The prostate and seminal vesicles are unremarkable. ?? Gastrointestinal: The stomach, small bowel and colon are normal. No enteritis, colitis or diverticulitis. No bowel obstruction. Appendix: No evidence of appendicitis. ?? Peritoneal cavity: No free intraperitoneal fluid or free air. ?? Lymph nodes: No pathologically enlarged lymph nodes. Vessels: Moderate atherosclerosis of the abdominal aorta and branch vessels. No aneurysm. Embolism coils within the splenic artery. ?? Abdominal wall: Unremarkable. No hernia or mass. Musculoskeletal: Incompletely healed rib fracture deformities bilaterally. No acute fracture healing fracture deformities of the right and left sixth, seventh, eighth ribs and left ninth and 10th ribs. Incompletely healed fractures of the right third and fourth transverse processes and left fifth transverse process. Incompletely healed nondisplaced fracture of the left sacral wing. ?? IMPRESSION 1. Left pleural effusion and left lower lobe atelectasis/consolidation. 2. Incompletely healed fracture deformities of bilateral ribs and lumbar transverse processes as well as the left sacral wing as detailed above. 3. 2 large communicating subcapsular low-density collections consistent with resolving hematomas. No active extravasation identified. 4. Cholelithiasis. 5. Bilateral renal cysts. 6. Numerous urinary bladder calculi. Results Pending at Discharge: Test results still pending from this admission Procedure Component Value Units Date/Time Bacterial Culture, Blood [[id number]] Collected: 01/13/23 1030 Lab Status: In process Specimen: Blood, Venous Updated: 01/13/23 1032 Bacterial Culture, Blood [[id number]] Collected: 01/13/23 1017 Lab Status: In process Specimen: Blood, Venous Updated: 01/13/23 1024 Follow-up appointments and procedures May follow solutions delivery consultant's recommendation Authorizing Provider: Paige Mitchell MD Physical Therapy - Evaluate and Treat Authorizing Provider: Paige Mitchell MD I personally spent > 30 minutes reviewing the chart, evaluating and examining the patient, counseling and preparing the patient for discharge, and coordinating follow up. Paige Mitchell MD 01/17/2023 13:24 documented in this encounter Medications at Time of Discharge Medication Sig Dispensed Refills Start Date End Date acetaminophen (TYLENOL) 325 mg tablet Take 2 Tablets by mouth every 6 hours as needed for Pain. 12/25/2022 aspirin 81 mg EC tablet Take 1 Tablet by mouth daily. Cholecalciferol, Vitamin D3, 50 mcg capsule Take 1 Capsule by mouth daily. methocarbamoL (ROBAXIN) 500 mg tablet Take 1 Tablet by mouth every 6 hours as needed for Muscle Spasms or Pain. 01/17/2023 primidone (MYSOLINE) 250 mg tablet Take 1 Tablet by mouth 3 times daily. Give with 50mg tab to equal total dose of 300mg 10/21/2022 primidone (MYSOLINE) 50 mg tablet Take 1 Tablet by mouth 3 times daily. Give with 250mg tab to equal total dose of 300mg 10/21/2022 cefpodoxime (VANTIN) 200 mg tablet Take 1 Tablet by mouth every 12 hours for 5 doses. 5 Tablet 01/17/2023 01/20/2023 documented as of this encounter Ordered Prescriptions Prescription Sig Dispensed Refills Start Date End Da te methocarbamoL (ROBAXIN) 500 mg tablet Take 1 Tablet by mouth every 6 hours as needed for Muscle Spasms or Pain. 01/17/2023 cefpodoxime (VANTIN) 200 mg tablet Take 1 Tablet by mouth every 12 hours for 5 doses. 5 Tablet 01/17/2023 01/20/2023 documented in this encounter Discharge Disposition Disposition Code Departure Means Destination Comment s Nursing Facility (Skilled) Skilled N ursing documented in this encounter Progress Notes * Elvi Key RN - 01/17/2023 1235 EDT Ed is discharging to [facility] this afternoon. Denies any pain. Able to move with 1 assist with walker. Reliable to make needs known. * Preeti Mims - 01/17/2023 1043 EDT DC Destination and with who: [facility] If Residential, Level of Care: one Client and/or Family Aware and in Agreement with the dc plan: yes IM Issued: yes Community Service Referrals and Agency: N/A Was the Agency/Person Notified, Who, Contact Info?: N/A Any New Equipment/What Type and from where?: N/A Mode of Transportation and Agency: TA Patient is discharging today back to [facility]. Patient agrees with the plan. CM provided RN with the number to call for report. Patient states he has no concerns. * Natalie Solis RN - 01/17/2023 0223 EDT Assumed care of pt at 1900. Pt is A+Ox3, [place]. Denies pain when asked. Sleeping well. Q2H T+R, pt isfrail/bony. Mepilex intact to sacrum and spine. BL foam to heels and heels offloaded with pillow. Pt is using urinal. VSS, afebrile. Bed alarmed, using call scott as directed. Hourly rounding continues. * Elvi Key RN - 01/16/2023 1841 EDT No reports of pain throughout shift. Up to chair for meals with 1 assist and a walker. q2 turning in place for skin integrity * Paige Mitchell MD - 01/16/2023 1809 EDT Medicine Progress Note Service Date: 01/16/2023 Admit Date: 01/13/2023 9:51 Reason for Admission: 77 y.o. male admitted with a chief complaint of AMS and weakness and now witha principal diagnosis of sepsis due to pneumonia. 24 Hour Events: Transition to oral antibiotics Subjective/Objective Subjective Feeling quite well today. Denies resolution of all presenting symptoms. No shortness of breath. No urinary symptoms. Review of Systems A ten point review of systems was performed and was negative except for pertinent positives noted in the HPI Objective Vital Signs Temp: [36.3 ??C (97.4 ??F)-36.6 ??C (97.9 ??F)] , Heart Rate: [75 BPM] , Resp: [16-20] , BP: (105-143)/(71-80) , SpO2: [94 %-97 %] Physical Exam Alert and oriented, no apparent distress Anicteric Regular rate and rhythm Clear to auscultation bilaterally and nonlabored Neuro grossly nonfocal Medications Reviewed: No changes Labs Reviewed: Hemoglobin stable, CRP continues to downtrend. 01/13/2023 blood cultures remain no growth to date 01/13/2023 urine with greater than 100,000 CFU's coag negative staph 01/13/2023 MRSA PCR negative Imaging Reviewed: No new imaging. Assessment/Plan Assessment Klever Gallegos is a 77 y.o. male with a history significant for recent trauma with multiple rib and spinal fractures and embolized hematoma of the spleen as well as presumed essential tremor and vitamin D deficiency. He was hospitalized at [facility] 12/13/2022 to 12/25/2022 for above injuries. ??Admitted to the hospital medicine service 01/13/23 with altered mental status and weakness in the setting presumed PNA (vs UTI) with sepsis physiology. Plan 1. Sepsis secondary to possible pneumonia versus UTI, sepsis physiology has resolved -Initially on cefepime, later transition to oral cefpodoxime (with low clinical suspicion for pseudomonal pneumonia) to complete his course for possible pneumonia. No sputum micro available. This will also adequately address the coag negative staph in his urine. -IV fluid discontinued. - F/u blood cultures, no growth to date 2. Metabolic encephalopathy secondary to sepsis - Resolved clinically after IVF and antibiotics. - Continue antibiotics as outlined above 3. Normocytic anemia: -Appears to have stabilized, monitor. Suspect he was initially hemoconcentrated on admission. 4. Multiple rib and spinal fractures - Continue Methocarbamol - Started scheduled acetaminophen. - Consider topical NSAID if additional pain control is needed. - RT consult requested ?? 5. Dysphagia -HOUSE DECORATOR evaluation performed, okay for regular diet with thins - Aspiration precautions ?? 6. Essential tremor -Holding MANAGER SIMULATION propranolol due to hypotension - Formulary substitution for 250 mg of primidone as 300mg dose not available per pharmacy. ?? 7. Vitamin D deficiency/fragility fractures - Vitamin D with calcium supplement versus D3 alone. VTE Prophylaxis Pharmacologic Prophylaxis: Enoxaparin (Lovenox) 40 mg SQ daily Discharge Plan halfway facility/Subacute rehab. Anticipate return to [facility] tomorrow. Consults None I spent more than 50 minutes in direct floor time solely dedicated to caring for this patient todayincluding time spent in review of the medical chart, review of labs, review of imaging, discussion with consultants, discharge planning, disease counseling and/or treatment planning with the patient. Paige Mitchell MD 01/16/2023 18:09 * Alicia Avila - 01/16/2023 1509 EDT Case Management Progress Note: ?? Level of Care: Acute. ?? Discharge Plan/Estimated Date of Discharge: Back to [facility] ASIA 01/17/23. ?? Insurance/Payor Source: MR Mon. ?? Barriers to Discharge: Waiting for insurance authorization. ?? Support Network: [facility] staff. Daughter, Maria Esther. ?? Transportation: Wheelchair van. ?? Continued Planning: CM will continue to follow. * Miranda Ramos PT - 01/16/2023 1207 EDT [facility] Physical Therapy Single Visit Evaluation Note Date of Service: 01/16/2023 Diagnosis: Pneumonia; sepsis Date of Onset: 01/13/23 Referring Provider: Paige Mitchell MD Reason for Referral: Evaluate and treat Referral Reason Comment: Scheduled for D/C today. Precautions: Mobility Precautions Activity: Up with assistance Spinal Precautions: No forward flexion of the spine due to compression fracture/osteoporosis, Log rolling only SUBJECTIVE: Patient is currently having difficulty with: Mobility Patient/caregiver states: My legs feel weak and tired. Patient and Caregiver Goals: Go home Subjective Information Reported by: Patient Pain Comments: No report of pain during PT evaluation. Medical/Surgical History: Current: Patient Active Problem List Diagnosis ??? Sepsis (HCC) (HCC-CMS) ??? Pneumonia Past: Past Medical History: Diagnosis Date ??? Coronary atherosclerosis History reviewed. No pertinent surgical history. HPI: From MD Progress Note: Klever Gallegos??is a 77 y.o.??male??with a history significant for??recent trauma with multiple rib and spinal fractures and embolized hematoma of the spleen as well aspresumed essential tremor and vitamin D deficiency. ??He was hospitalized at [facility] 12/13/2022 to 12/25/2022 for above injuries. ??Admitted to the hospital medicine service??01/13/23??with altered mental status and weakness in thesetting??presumed PNA (vs UTI) with sepsis physiology.?? Support Support Comment: Patient recieves support from neighbors who are renting property from him. Reportssupport with groceries. Prior level of function: Prior Level of Function Comment: Independent with residential mobility with use of walker in home. Basic Activities of Daily Living - General Level of Assistance Throughout: Independent Instrumental Activities of Daily Living - General Instrumental Activities of Daily Living Comment: Reports some support from neighbors/renters. Need to clarify amount of support provided. Home Environment: Safety Assessment / Living Environment Home environment: House (Patient currently participating in [employer] at &. Previously living in [place].) Home layout: One level Entrance Stairs: Need to clarify Bathroom Accessibility: Accessible via walker Indoor Stairs: Indoor stairs with railings (Between living room/dining room. Uses cane.) # of Indoor Steps: 2 Mobility Equipment: Walker Walker Specifics: Rolling walker - 2 wheels Support Comment: Patient recieves support from neighbors who are renting property from him. Reportssupport with groceries. Lives With: No other person in the home OBJECTIVE: Patient Profile: Patient is a 77 y.o. male admitted on 01/13/2023 secondary to Pneumonia The patient lives at [address] [place] [address] [place] [address] Arousal, Attention, and Cognition: Orientation: Alert Oriented to person, place, and time. [place]. Cardiopulmonary: Pre-activity: BP 114/75, HR 78 bpm, Sp02 94% on RA. After activity: (seated) BP 97/72, HR 79 bpm. Standing after activity: BP 102/63, HR 82 bpm. No report of lightheadedness/dizzines. Reports LE fatigue/weakness; not worsened with activity. Notified RN and MD. Integumentary/Anthropometric: Palpation/Observation: Dressings over spinous processes. See nursing notes for full assessment. Posture: Forward head, Protracted shoulders and Thoracic kyphosis Range of Motion: Active Range of Motion: BLEs grossly WFL as seen with mobility. Muscle Performance: Strength: BLEs grossly >3/5 as seen with mobility. Sensation, Reflexes, and Nerve Integrity: Light Touch Sensation: Lower Quarter: No report of numbness/tingling BLEs. BLEs grossly intact to touch. Neuromotor Function/Development: No problems noted Balance: Patient has a history of falls. Required min assist to support STS transfer; CGA with RW support with ambulation. No LOB noted with change of direction with this support. Bed Mobility and Transfers: supine to sit: CGA with cueing for spinal precautions/log rolling. sit to supine: supervision with cueing for sequencing sit to stand: min assist x1 to RW; cueing for hand placement stand to sit: SBA bed to chair: CGA in RW Gait and Stairs: Assistive device/distance/assist/deviations: Amb x 30 ft with RW, CGA x1. Slow gait speed with flexion at hips/knees; increased UE reliance through RW. Reports LE fatigue, weakness; no buckling or instability noted. No pain with activity. Able to sustain balance in standing with supervision and BUEsupport ~40 seconds prior to fatigue. Informed Consent: The patient consented to the physical therapy evaluation. The patient agrees to and understands thephysical therapy treatment plan and goals. Interventions Completed Today: Time: 1122 Total Treatment Time (minutes): 28 Timed Code Treatment Minutes: 0 No interventions completed today PT evaluation and education only. Patient Status at the End of the Therapy Session The patient was left in the: bed with the: Call scott in reach Patient Status at the End of the Therapy Session Comments: RN notified of patient status. Additional information may be available in the medical record. Patient/Family Education: Activity/Work/Community: Pacing, Importance of out of bed activity, Body mechanics Braces and Equipment: Use of assistive device Medical Information/Signs and Symptoms: Vital sign response Mobility, Transfers, and Gait: Mobility recommendations, Gait training safety, Functional transfers, Bed mobility Recommendations: Discharge recommendations/planning, Follow-up services, Postural education Safety: Spinal precautions, Safety Therapy Specific: Role of physical therapy, Treatment plan/goals ASSESSMENT: Physical Therapy Diagnosis: The patient presents with a physical therapy diagnosis of: Impaired gait, Impaired mobility, Impaired self-care Physical Therapy Assessment: Patient is 77 year old male recently hospitalized at [facility] 12/[place]- due to trauma with multiple riband spinal fracture and embolized hematoma of spleen until discharged to [facility] for [facility]. Patient presented to [facility] for AMS in setting of presumed PNA vs UTI with sepsis physiology. Patient agreeable to participate with PT evaluation and is very motivated to improve mobility. Patient required assist x1 to support safe gait and transfers and cueing to sequencing mobility to support further healing of above injuries. Patient lives alone at baseline and is motivated to return home but will require continued SHANTA to support progression back to independent mobility level further impacted by current hospitalization and deconditioning associated with this day. Recommend DC to [facility] when medically ready with continuation of PT intervention. The patient's prior level of function was: modified independent with: walker Current status is: below prior level of function The patient's rehabilitation potential is: good Physical Therapy is medically necessary to: address these body structure/function impairments, activity limitations, and participation restrictions, facilitate return to prior level of function, establish and progress mobility/exercise and provide recommendations for staff and safe discharge planning, improve safety and independence The patient: requires sub-acute rehabilitation as next level of care for multiple therapy disciplines at a lower intensity with the expectation to return to prior level of function/living situation. PLAN: Patient/Family Education: Falls Prevention, Patient education, Safety, Recommendations, Symptom management, Instruction in precautions, Equipment, Discharge planning Discharge Recommendations: Recommended Discharge Destination: Subacute rehabilitation Therapy Specific Services: Physical therapy, Occupational therapy Equipment Recommended: Patient has all necessary equipment Team Communication: Communicated with: Nurse, Physician, offshoring manager When: Prior to therapy session, After therapy session By: [id number] communication, Other (Secure chat.) About: Mobility recommendations. Discharge recommendations. Miranda Ramos PT 01/16/2023 12:18 * Natalie Solis RN - 01/16/2023 0226 EDT Assumed care of pt at 1900. Pt is A+Ox3, very [place]. No hearing aids. Able to make needs known. Denied pain but continues on scheduled tylenol given his recent multiple BL rib fxs and spinal fxs. Pt isusing urinal, checking for incontinence Q2H. Katherin care provided. Pt is frail/bony, Q2H turns and protective foam to sacrum, spine and BL heels in place. Heels offloaded with pillow. Using call scott as directed. LS dim. Given PO Vantin as ordered. BP stable. Good po intake. Stable on RA. Bed alarmed. Hourly rounding continues. * Paige Mitchell MD - 01/15/2023 1725 EDT Medicine Progress Note Service Date: 01/15/2023 Admit Date: 01/13/2023 9:51 Reason for Admission: 77 y.o. male admitted with a chief complaint of AMS and weakness and now witha principal diagnosis of sepsis due to pneumonia. 24 Hour Events: HOUSE DECORATOR eval, okay for regular diet with thins Subjective/Objective Subjective Feeling quite well today. Denies resolution of all presenting symptoms. No shortness of breath. No urinary symptoms. Review of Systems A ten point review of systems was performed and was negative except for pertinent positives noted in the HPI Objective Vital Signs Temp: [36.6 ??C (97.9 ??F)] , Heart Rate: [65 BPM-77 BPM] , Resp: [17-22] , BP: (94-112)/(58-72) , SpO2: [94 %-99 %] Physical Exam Alert and oriented, no apparent distress Anicteric Regular rate and rhythm Clear to auscultation bilaterally and nonlabored Neuro grossly nonfocal Medications Reviewed: Cefepime transition to oral cefpodoxime this afternoon Labs Reviewed: CRP downtrending to 181, hemoglobin downtrending to 10.2, WBCs normal 01/13/2023 blood cultures remain no growth to date 01/13/2023 urine with greater than 100,000 CFU's coag negative staph 01/13/2023 MRSA PCR negative Imaging Reviewed: No new imaging. Assessment/Plan Assessment Klever Gallegos is a 77 y.o. male with a history significant for recent trauma with multiple rib and spinal fractures and embolized hematoma of the spleen as well as presumed essential tremor and vitamin D deficiency. He was hospitalized at [facility] 12/13/2022 to 12/25/2022 for above injuries. ??Admitted to the hospital medicine service 01/13/23 with altered mental status and weakness in the setting presumed PNA (vs UTI) with sepsis physiology. Plan 1. Sepsis secondary to possible pneumonia versus UTI, sepsis physiology has resolved -Patient doing quite well on cefepime. He only had a very mild oxygen requirement and subtle elevation WBCs initially, which both rapidly normalized. He has been afebrile his entire stay and clinically looks quite well. My suspicion for a pseudomonal pneumonia is fairly low at this time. No sputum s ample was obtained and he is unlikely to produce one at this point. Will transition to oral cefpodoxime to complete his course for possible pneumonia. This will also adequately address the coag negative staph in his urine. -IV fluid discontinued. - F/u blood cultures, no growth to date - Telemetry can be discontinued 2. Metabolic encephalopathy secondary to sepsis - Resolved clinically after IVF and antibiotics. - Continue antibiotics as outlined above - CRP at 225 initially. Procalcitonin WNL. 3. Normocytic anemia: - No evidence of bleeding but downtrending, monitor. -If does not stabilize overnight, would consider hemolysis labs 4. Multiple rib and spinal fractures - Continue Methocarbamol - Started scheduled acetaminophen. - Consider topical NSAID if additional pain control is needed. - RT consult requested ?? 5. Dysphagia -HOUSE DECORATOR evaluation performed today, okay for regular diet with thins - Aspiration precautions ?? 6. Essential tremor -Holding MANAGER SIMULATION propranolol due to hypotension - Formulary substitution for 250 mg of primidone as 300mg dose not available per pharmacy. ?? 7. Vitamin D deficiency/fragility fractures - Vitamin D with calcium supplement versus D3 alone. VTE Prophylaxis Pharmacologic Prophylaxis: Enoxaparin (Lovenox) 40 mg SQ daily Discharge Plan halfway facility/Subacute rehab. Anticipate return to [facility] tomorrow. Consults None I spent more than 50 minutes in direct floor time solely dedicated to caring for this patient todayincluding time spent in review of the medical chart, review of labs, review of imaging, discussion with consultants, discharge planning, disease counseling and/or treatment planning with the patient. Paige Mitchell MD 01/15/2023 17:25 * Alison De Paz, HOUSE DECORATOR - 01/15/2023 1311 EDT [facility] Inpatient Rehabilitation Services [facility] Speech-Language Pathology Single Visit Evaluation HOUSE DECORATOR Diagnosis: Dysphagia: Medical Diagnosis: Pneumonia Date of Onset: 01/13/23 (admit date) Date of Referral: 01/13/23 Referring Provider: Asad Perez PA-C Start Time: 1115 Total Therapy minutes: 15 minutes SUBJECTIVE: I had eggs, a muffin and a banana. It was fine re: breakfast Pt reports he had difficulty swallowing in [id number], reports it was due to too much anesthesia but they were able to fix it, though etiology appears unclear in notes. Reports they said he protects his airway now. Has been on regular diet with no reported difficulties, however reports he avoidswhole corn kernels as those give him trouble. OBJECTIVE: History: Per H&P: Klever Gallegos is a 77 y.o. male with a history of fall (approximately 30 days ago) with fractures of right L3, L4 and left L5 transverse fractures, fractures of T1-T3 vertebral bodies, nondisplaced right second through eighth rib fractures and left fourth rib fracture. He also had a splenic hematoma which was treated with embolization. He was hospitalized at [facility] and subsequently discharged to [facility] on 12/25/22. He was transferred to the [facility] ER 01/13/2023 as nursing staff at his SNF felt that he was acutely altered and weak. Per history provided to ER provider patient is typically talkative and able to ambulate with a walker however has beenvery quiet and unable to get out of bed in the last 24 H. He is also apparently been having difficulty swallowing and oral intake has been been poor. Additionally BP have been low (apparently ??100 though baseline unclear). Patient has been receiving methocarbamol 750 mg 4 times a day at the SNF. Further past medical history was not available at the time of writing this note though he appears to be undergoing treatment for essential tremor with propranolol and primidone as well as vitamin D deficiency. ?? In the ER patient met sepsis criteria with a white blood cell count of 12.97 and respiratory rate of 26. Chest x-ray showed opacity at left lung base read as infiltrate versus atelectasis. CT head without contrast was unremarkable. Known fractures appreciated on CT neck and abdomen w/o acute changes. Lactic acid was nonelevated. UA was possibly suggestive of UTI with trace leukocyte esterase and bacteria/pyuria on microscopy although specimen was heavily contaminated with squames. VBG was within normal limits and CK was unremarkable. ECG was nonischemic. Patient received 2000 mg of cefepime as well as 1 L bolus of IVF. BP improved to 120/74 after receiving fluids. Per ER note CODE STATUS was discussed with patient and family member and preference was stated for DNR/DNI. ?? At time of admission visit patient reported he was just tired. He also complained of feeling thirsty and his mouth being dry. He denied significant pain in his back or ribs. He denied systemic symptoms, cough, sputum production, SOB, or chest pain. He did not endorse any paresthesia or focal weakness in extreamities. No lightheadedness or dizziness. He denied headaches, irritative voiding symptoms, or NVD. Per RD note: Pt reports his appetite is good, ate all his lunch. Family present share that pt was not eating well at SNF while on puree diet but has been doing well on regular diet. Pt denies difficulty swallowing, except for whole corn, that stuff gets stuck. PMH: Past Medical History: Diagnosis Date ??? Coronary atherosclerosis Current Diet: Regular Diet Diet prior to admission: regular diet with thin liquids. Current Medications: Current Facility-Administered Medications Medication Dose Route Frequency Provider Last Rate Last Admin ??? acetaminophen (TYLENOL) tablet 975 mg 975 mg oral Q8H Asad Perez PA-C 975 mg at 01/15/23850 ??? aspirin EC tablet 81 mg 81 mg oral DAILY Asad Perez PA-C 81 mg at 01/15/23850 ??? calcium carbonate (TUMS) tablet 500 mg (200 mg elemental calcium) 2 Tablet 2 Tablet oral Q6H PRN Asad Perez PA-C ??? calcium-vitamin D (CALTRATE D) 600 mg (1,500 mg)-400 unit per tablet 2 Tablet 2 Tablet oral DAILY Asad Perez PA-C 2 Tablet at 01/15/23850 ??? cefepime (MAXIPIME) 2,000 mg in sodium chloride (NS MBP) 50 mL IVPB 2,000 mg intravenous Q8H Paige Mitchell MD 2,000 mg at 01/15/23 0850 ??? cefpodoxime (VANTIN) tablet 200 mg 200 mg oral Q12H Paige Mitchell MD ??? enoxaparin (LOVENOX) injection 40 mg 40 mg subcutaneous DAILY Asad Perez PA-C 40 mg at 01/15/23 0851 ??? lidocaine (PF) 10 mg/mL (1 %) injection 2 mg 2 mg intradermal PRN Asad Perez PA-C ??? methocarbamoL (ROBAXIN) tablet 500 mg 500 mg oral Q6H PRN Asad Perez PA-C ??? polyethylene glycol 3350 (MIRALAX) packet 17 g 17 g oral Daily PRN Asad Perez PA-C ??? primidone (MYSOLINE) tablet 250 mg 250 mg oral TID Asad Perez PA-C 250 mg at 01/15/23 0850 ??? ramelteon (ROZEREM) tablet 8 mg 8 mg oral AT BEDTIME PRN Asad Perez PA- C 8 mg at 01/14/23 2104 Current Status: Cognitive Status: Patient was alert and cooperative during evaluation. Respiratory Status: Respiratory status was judged to be WFL to support oral feeding. Clinical Swallow Evaluation: Patient/Family: consented to completing the clinical bedside swallow exam. Oral Peripheral Motor Exam: Face: Face was symmetrical with adequate strength and range of motion. Lips: Adequate labial strength and range of motion. Tongue: Adequate lingual strength, range of motion and coordination. Velum: Symmetrical soft palate elevation during phonation attempts. Dentition: Patient is edentulous. Laryngeal Excursion: Within functional limits with anterior tipping upon palpation. Speech Intelligibility: Speech with functional intelligibility. No deficits noted. Vocal Quality: Patient presents with a clear vocal quality. Cough: Patient presents with a strong, non-productive cough. Positioning: Seen at bedside for evaluation. Consistencies Tested: was assessed with thin liquids and solid foods. Methods of Delivery: Patient was able to self administer all items without HOUSE DECORATOR assistance using a spoon, cup and straw. Oral Phase Findings: Patient presents with oral phase deficits characterized by difficulty mastication veneer drier foods, though able to with assist of liquid to help moisten. Pharyngeal Phase: Patient presents with pharyngeal phase deficits as suggested by signs/symptoms suggestive of laryngeal penetration/aspiration characterized by 1x delayed cough after the swallow, however reported this wasn't due to feeling like something went down the wrong way.Other: No changesin vocal quality noted. Pt noted to cough prior to trial of solids/liquids as well so difficult to determine if 1x cough during trials was due to swallow function or pneumonia. Compensatory Strategies: The following compensatory swallow strategies were attempted during today's evaluation: Strategies of using liquid as added moisture to help with veneer drier foods, liquid washes were beneficial. Patient/Family Education: Topic: Patient/Family education and training was completed today including the role of Speech-Language Pathology and results of today's exam/recommendations. Learner: patient Method of Education: Verbal Barriers to Learning/Education: none Patient: was able to verbalize understanding of information Family: not present Assessment /Clinical Impressions: is a 77 y.o. male admitted with pneumonia and sepsis. A clinical swallow evaluation was completed today by Speech Language Pathology secondary to concerns for oropharyngeal dysphagia, and risk of laryngeal penetration/aspiration. currently presents with a mild oropharyngeal phase dysphagia characterized by difficulty mastication veneer drier foods, though noted to be successful with strategy of using liquid to help moisten, as well as 1x delayed cough noted. Difficult to determine if 1x cough due to swallow function or pneumonia. Etiology of dysphagia is reported to be baseline, unknown etiology overall however likely impacted by age and medical status. remains at risk of aspiration/airway compromise including obstruction, congestion and infective sequelae of aspiration. Compensatory strategies of added moisture (with liquid), and liquid washes appear effectivein decreasing risk of aspiration. Pt demonstrates awareness of strategies to assist with safe swallowing (always taking sips of water to moisten bites of foods) as well as what foods give him more difficulty, which he says he avoids. As pt demonstrates awareness of mild difficulties and strategies to assist, feel pt is appropriate for regular diet. No further HOUSE DECORATOR indicated at this time. Plan /Recommendations: I do not anticipate further HOUSE DECORATOR intervention/managements needs in this setting. Please feel free toreconsult if patient demonstrates poor tolerance of recommendations listed below. Referrals: None HOUSE DECORATOR follow-up: Not indicated in this setting. Discharge Plan: None, per care team. ALISSA Lofton 01/15/2023 13:11 * Alicia Avila - 01/15/2023 1012 EDT Case Management Progress Note: Level of Care: Acute. Discharge Plan/Estimated Date of Discharge: Back to [facility] ASIA 01/17/23. Insurance/Payor Source: MR Mon. Barriers to Discharge: Finishing IV antibiotics. Support Network: [facility] staff. Daughter, Maria Esther. Transportation: Wheelchair van or ambulance. Continued Planning: CM will continue to follow. * Natalie Solis RN - 01/15/2023 0219 EDT Assumed care of pt at 1900. Pt is A+Ox3, very [place]. Does not have hearing aids here. Denied pain butcontinues on scheduled tylenol given his recent L sided rib fxs and spinal fxs. Pt is apparently incontinent and has external catheter in place, draining dark yellow urine. Katherin care provided. Pt is frail/bony, Q2H turns and protective foam to sacrum, spine and BL heels in place. Heels offloaded with pillow however pt states I will just kick it down. Educated pt about preventing pressure injuries. Using call scott as directed. LS dim with faint crackles to LLL. Continues on IV cefepime for PNA. BP remains soft but stable. Continuous IVF infusing as ordered. Stable on RA. Bed alarmed. Hourly r ounding continues. * Nata Parrish - 01/14/2023 1552 EDT Medicine Progress Note Service Date: 01/14/2023 Admit Date: 01/13/2023 9:51 Reason for Admission: 77 y.o. male admitted with a chief complaint of AMS and weakness and now witha principal diagnosis of sepsis pneumonia. 24 Hour Events: BP runs low Subjective/Objective Subjective Patient states that he feels well,has no complaints of pain or SOB. Review of Systems A ten point review of systems was performed and was negative except for pertinent positives noted in the HPI Objective Vital Signs Temp: [36.4 ??C (97.6 ??F)-36.6 ??C (97.9 ??F)] , Heart Rate: [66 BPM-89 BPM] , Resp: [16-26] , BP:(85-129)/(50-79) , SpO2: [86 %-99 %] Physical Exam General: Sitting in bed, frail HEENT: Atraumatic, normo cephalic, PERRLA Neck: No JVD Cardiovascular: RR, S1&S2, no murmur Respiratory: Clear bilaterally, normal chest expansion Abdominal: Soft, non-distended, non-tender. Neurological: Oriented to name and place. Psychiatric: Answers questions appropriately Medications Reviewed: No changes Labs Reviewed: No significant findings. Imaging Reviewed: No new imaging. Assessment/Plan Assessment Klever Gallegos is a 77 y.o. male with a history significant for recent trauma with multiple rib and spinal fractures and embolized hematoma of the spleen as well as presumed essential tremor and vitamin D deficiency. He was hospitalized at [facility] 12/13/2022 to 12/25/2022 for above injuries. ??Admitted to the hospital medicine service 01/13/23 with altered mental status and weakness in the setting presumed PNA (vs UTI) with sepsis physiology. Plan 1. Sepsis secondary to possible pneumonia; - Continue Cefepime (patient comes from [facility]) - Patient receive a NS bolus today. Continue IV fluids - F/u blood cultures - Telemetry 2. Metabolic encephalopathy secondary to sepsis secondary to PNA - Resolved clinically after IVF and antibiotics. - Continue Cefepime - CRP at 225. Procalcitonin WNL. 3. Normocytic anemia: - No evidence of bleeding - monitor 4. Multiple rib and spinal fractures - Continue Methocarbamol - Started scheduled acetaminophen. - Consider topical NSAID if additional pain control is needed. - RT consult ordered for tomorrow. ?? 5. Dysphagia -HOUSE DECORATOR evaluation ordered - Aspiration precautions ?? 6. Essential tremor -Holding MANAGER SIMULATION propranolol due to hypotension - Formulary substitution for 250 mg of primidone as 300mg dose not available per pharmacy. ?? 7. Vitamin D deficiency/fragility fractures - Vitamin D with calcium supplement versus D3 alone. VTE Prophylaxis Pharmacologic Prophylaxis: Enoxaparin (Lovenox) 40 mg SQ daily Discharge Plan halfway facility/Subacute rehab Consults None I spent 45 minutes in time caring for the patient including >50% of time spent in counseling andcoordination of care including time spent in review of the medical chart, labs, imaging, discussionwith consultants and in disease counseling and treatment planning Nata Parrish MD 01/14/2023 15:52 * Keerthi Mares - 01/14/2023 1052 EDT Initial Case Management/Social Work Assessment and Discharge Plan/Readmission Risk Assessment REASON FOR ADMISSION: Pneumonia Patient understands reason for admission: PATIENT INFO VERIFIED: Type of housing (single family, condo, apartment, halfway, single room occupancy, [facility] funded hotel room, group mcc) - [facility] (Residential) Who does the patient live with? Other residents Does the patient have access to their own bedroom/bathroom/kitchen - or is it shared with others? Shared Name of housing complex (ex [facility], [facility], etc)- n/a Housing Authority/Managing Organization - n/a Community Care Providers (wrapper caser, [facility] nurse, etc) name and contact information- n/a LIVING ARRANGEMENTS AND ACCESSIBILITY ISSUES: Living Arrangements: custodial Care Facility Name: [facility] Levels: 1 Stairs to enter: 0 Handicap access: None Bathroom located on bedroom level?: Yes What in home social supports are available to the patient? Other (See comment) (Residential Staff) Is 03/02 care available? Yes ADVANCED DIRECTIVES, POA &/or COLST IN PLACE: Healthcare Directive: No, patient does not have advance directive for healthcare treatment Copy in Chart: No, copy requested from medical records Information Provided on Healthcare Directives: No Information on Healthcare Directives Requested: No DIRECTIVES FOR FINANCES: Directive For Finances: No TRANSPORTATION: Transportation: Ambulance Patient expects to be discharged to: [facility] CULTURAL, CONGREGATIONAL and/or LANGUAGE factors affecting health care/discharge planning: Spiritual/Cultural Requests: None Language/Literacy Needs Do you need us to provide any communication aids or devices?: No Insurance Information: Nutrition: DISCHARGE RISK ASSESSMENT: Requires assistance with ADLs/IADLs Total # selected above: Score of 1 - 2: This patient is at LOW RISK for re-hospitalization Tentative plan to address the risk of re-hospitalization for those at HIGH MODERATE RISK: RAPT TOOL: Age: >75 Gender: Male Ambulation distance: 1-2 blocks Gait device: Crutch/Walker Community Services: Two or more times a week (Support from [facility]) Will you live with someone who will care for you?: Yes ([facility]) RAPT Tool Score: 6 Patient expects to be discharged to: [facility] SBIRT: FUNCTIONAL STATUS: Activities patient requires assistance: Bathing, Food preparation/shopping, Taking Medications, Grooming, Toileting, Mobility Assistive Devices: Walker, Shower chair Walker type: Front wheel COMMUNITY RESOURCES/SUPPORTS: Primary Care Provider: Peter Boone PCP Verified: Specialists: Type of Home Health Services: None DME Provider: Pharmacy: No Pharmacies Listed Home Health: Other: POST HOSPITAL TRANSITION PLAN: RN from [facility] was able to verify contacts, PCP, and demographics. Patient was living at [facility] since 12/25/22 for SHANTA. Housing is one level and shared with other residents. Patient uses a walker, shower chair, and grab bars with not other DME's noted. Patient was not using any community supports. If [facility] via ambulance or wheelchair van. CM will continue to follow. KEERTHI MARES 01/14/2023 10:52 * Juan Gilmore RN - 01/14/2023 0620 EDT Patient is alert and oriented 3x. Denies SOB or CP. Able to take scheduled medication as ordered. Patient had episode of low BP 80's/50s; pt asymptomatic, MD made aware; pt given boluses of 500 ml LR2x. BP remained soft 90's/60's after boluses. Held propanolol per MD order. Able to swallow pills whole with no signs of aspiration. Placed on 1L NC overnight due to SpO2 drop to low 80's while asleep, maintaining mid 90's overnight. IV anbiototic administered as ordered. Call scott and personal belongings within reach and hourly rounding was performed. Pt is able to make needs known to staff. Safely maintained. Orthostatic vitals completed (see mar). No bowel movement overnight. Tele strips reviewed and printed showing NSR w/ occasional PVC's . Otherwise, no acute distress. Problem: Daily Care Plan Goals Goal: Care Plan Documentation Outcome: Ongoing Problem: High Fall Risk: Goal: Patient will Remain Free of Falls due to Med. Side Effects Outcome: Ongoing Problem: High Fall Risk: Goal: Patient Will Remain Free from Fall-Related Injury Outcome: Ongoing * Day, Asad RT - 01/13/2023 0813 EDT Respiratory Consult/Progress Note Indications for Respiratory therapy: initial consut Data Vitals: Heart Rate: 88 BPM, Resp: 18, SpO2: 95 % FIO2/O2 Device: O2 Flow Rate (L/min): 0 l/min, , O2 Device: None, RT Orders: None Protocol Scoring: Bronchodilator/Inhalation Therapy Frequency Bronchodilator - Clinical Indications: No clinical indications Breath Sounds: Any abnormal BS decreased Response: No change / no treatment Pulse: <100 Resp Rate: <18 SOB: With exertion Total Score: 2 Comment:: no tx indicated Frequency Based On Total Score: 0-4 = PRN 5-7 = QID 8-10 = Q4H 11-12 = Q2H Airway Clearance Therapy Frequency Airway Clearance - Clinical Indications: No clinical indications Breath Sounds: Clear / diminished Sputum: Small (tsp) / None Consistency: None Cough Effort: Strong/ non-productive Color: None Total Score: 0 Comment: no tx indicated Frequency Based On Total Score: 0-3 = PRN 4-6 = QID and PRN 7-9 = Q4H and PRN 10-11 = Q2H and PRN Hyperinflation Therapy Frequency Hyperinflation - Clinical Indications: No clinical indications Breath Sounds: Diminished / crackles Surgery: No X-Ray / Atelectasis: No O2 Requirements: O2 at baseline Mobility Status: Mobile / at baseline Total: 2 Comment: no tx indicated Frequency Based On Total Score: 0-3 = PRN 4-6 = QID and PRN 7-9 = Q4H and PRN 10-12 = Q2H and PRN Action/Events Respiratory events; Pt in no respiratory distress. Pt has no home oxygen and no home CPAP. PT on RA RT JACQUELINE 01/13/23 * Elida Vargas RN - 01/13/20232004 EDT FOUR EYES SKIN ASSESSMENT Four Eyes skin assessment was performed on admission to the unit by Elida Vargas RN and Mark Ellison RN. Patient has the following devices at the time of this assessment: Peripheral IV. Device related pressure injury present? No Areas of concern: Fill in detail for areas of concern [] Occiput [] Nose [] Ear [] Lip [] Scapula [x] Spine: Mepilex placed d/t bony prominences [] Shoulder [] Elbow [] Iliac crest [x] Sacrum/coccyx: Red blanching/bony prominences [] Ischial tuberosity [x] Trochanter: small pinhole incision [] Knee [] Malleolus [x] Heels: Dry, slightly boggy [] Toe [] Other: Last Je Score: 16 ELIDA VARGAS RN 01/13/2023 20:10 documented in this encounter H&P Notes * Asad Perez PA-C - 01/13/2023 1905 EDT [facility] Medicine Admission History & Physical Service Date: 01/13/2023 Admit Date: 01/13/2023 9:51 Primary Care Provider: Peter Boone Chief Complaint: Altered mental status and weakness. HPI Klever Gallegos is a 77 y.o. male with a history of fall (approximately 30 days ago) with fractures of right L3, L4 and left L5 transverse fractures, fractures of T1-T3 vertebral bodies, nondisplaced right second through eighth rib fractures and left fourth rib fracture. He also had a splenic hematoma which was treated with embolization. He was hospitalized at [facility] and subsequently discharged [facility] for [facility] on 12/25/22. He was transferred to the [facility] ER 01/13/2023 as nursing staff at his SNF felt that he was acutely altered and weak. Per history provided to ER provider patient is typically talkative and able to ambulate with a walker however has been very quiet and unable to get out of bed in the last 24 H. He is also apparently been having difficulty swallowing and oralintake has been been poor. Additionally BP have been low (apparently ??100 though baseline unclear). Patient has been receiving methocarbamol 750 mg 4 times a day at the SNF. Further past medical history was not available at the time of writing this note though he appears to be undergoing treatmentfor essential tremor with propranolol and primidone as well as vitamin D deficiency. In the ER patient met sepsis criteria with a white blood cell count of 12.97 and respiratory rate of 26. Chest x-ray showed opacity at left lung base read as infiltrate versus atelectasis. CT head without contrast was unremarkable. Known fractures appreciated on CT neck and abdomen w/o acute changes. Lactic acid was nonelevated. UA was possibly suggestive of UTI with trace leukocyte esterase and bacteria/pyuria on microscopy although specimen was heavily contaminated with squames. VBG was within normal limits and CK was unremarkable. ECG was nonischemic. Patient received 2000 mg of cefepime as well as 1 L bolus of IVF. BP improved to 120/74 after receiving fluids. Per ER note CODE STATUS was discussed with patient and family member and preference was stated for DNR/DNI. At time of admission visit patient reported he was just tired. He also complained of feeling thirsty and his mouth being dry. He denied significant pain in his back or ribs. He denied systemic symptoms, cough, sputum production, SOB, or chest pain. He did not endorse any paresthesia or focal weakness in extreamities. No lightheadedness or dizziness. He denied headaches, irritative voiding symptoms, or NVD. Review of Systems A complete 10 point ROS was performed and pertinent positive and negative findings listed in HPI, otherwise negative. Past Medical History: Diagnosis Date ??? Coronary atherosclerosis History reviewed. No pertinent surgical history. Social History Tobacco Use ??? Smoking status: Unknown ??? Smokeless tobacco: Not on file Substance Use Topics ??? Alcohol use: Not Currently History reviewed. No pertinent family history. Current Outpatient Medications Medication Instructions ??? acetaminophen (TYLENOL) 650 mg, oral, EVERY 6 HOURS PRN ??? aspirin 81 mg, oral, DAILY ??? Cholecalciferol, Vitamin D3, 50 mcg capsule 1 Capsule, oral, DAILY ??? methocarbamoL (ROBAXIN) 750 mg, oral, 3 TIMES DAILY ??? primidone (MYSOLINE) 250 mg, oral, 3 TIMES DAILY, Give with 50mg tab to equal total dose of 300mg ??? primidone (MYSOLINE) 50 mg, oral, 3 TIMES DAILY, Give with 250mg tab to equal total dose of 300mg ??? propRANolol (INDERAL) 20 mg, oral, 3 TIMES DAILY No Known Allergies Objective VITALS: BP 93/50 (BP Cuff Location: Right arm, BP Patient Position: Semi fowlers) Pulse 83 Temp 36.6 ??C (97.8 ??F) (Oral) Resp 18 Ht 175.3 cm (69) Wt 53.7 kg (118 lb 6.4 oz) SpO2 95% BMI 17.48 kg/m?? PHYSICAL EXAM Gen: Chronically ill-appearing, NAD HEENT: Mucous membranes and mouth were dry appearing. Uvula midline, no exudates. Pupils PERRLA, EOMs intact. Neck: supple CV: RRR, no m/r/g Pulm: CTAB, good air movement, no w/r/r Abd: +BS, soft, NTND, no HSM : No irving Extrem: Warm and well perfused, no cyanosis or edema Neuro: No focal motor neurologic signs. Face symmetrical, no dysarthria, moves extremities symmetrically, strength 5 out of 5 in all extremities, sensation intact to light touch in all extremities. Notable coarse tremor in upper extremities. Skin: Warm, dry, no rashes Psych: Appears somnolent. Awoke to loud verbal stimuli and was able to provide some history. Fell back asleep during course of interview. Sacrum: Not examined LABS I have personally reviewed the following: No results for input(s): GLUCOSEFINGE in the last 72 hours. No results found for: HGBA1C Recent Labs 01/13/23 1002 WBC 12.97* RBC 4.42 HGB 13.2* HCT 40.5 MCV 92 PLT 314 Recent Labs 01/13/23 1002 NA 136 K 4.3 CL 97 CO2 27 BUN 19 CREATININE 0.75 MG 1.8 Recent Labs 01/13/23 1002 ALKPHOS 142* AST 50* ALT 37 TBIL 1.0 No results for input(s): PROTIME, PTT, INR in the last 72 hours. No results for input(s): PHISTAT, PCOISTAT, POISTAT, O2AXELKJ, BEART, POCFIO2 in the last 72 hours. Recent Labs 01/13/23 1002 CK 85 Recent Labs 01/13/23 1452 01/13/23 1453 LABSPEC 1.010 1.010 PHUR 6.5 6.0 GLUCOSEU Negative Negative BILIRUBINUR 1+* Negative KETONES Negative Negative BLOODU 1+* -- MICROBIOLOGY I have personally reviewed the following: Positive COVID-19 12/19/2022. UA as above. Urine and blood cultures pending at this time. NEW IMAGING I have personally reviewed the following: CT ABDOMEN PELVIS W CONTRAST Result Date: 01/13/2023 1. Left pleural effusion and left lower lobe atelectasis/consolidation. 2. Incompletely healed fracture deformities of bilateral ribs and lumbar transverse processes as well as the left sacral wing as detailed above. 3. 2 large communicating subcapsular low-density collections consistent with resolving hematomas. No active extravasation identified. 4. Cholelithiasis. 5. Bilateral renal cysts. 6. Numerous urinary bladder calculi. [id number] CT CERVICAL SPINE WO CONTRAST Result Date: 01/13/2023 1. Mild acute anterior wedge fracture deformities of the superior endplates of T1 and T2 and mild superior endplate compression fracture deformity of T3. No significant spinal stenosis or subluxationis identified at these levels. 2. Degenerative spondylosis of the cervical spine. I personally communicated these findings to Yg Kang MD on 01/13/2023 at 11:[id number] HEAD WO CONTRAST Result Date: 01/13/2023 No acute abnormality. [id number] XR CHEST PORTABLE 1 VIEW Result Date: 01/13/2023 1. Small left pleural effusion with patchy left base opacity which may reflect infiltrate or atelectasis. A follow-up chest x-ray in 2-3 months is recommended to assess for improvement. 2. Numerous lateral left chest wall incompletely healed but somewhat chronic rib fractures. [id number] EKG Rate 91 RI 154 QRSd 90 QT 346 QTc 425 --[place]-- P 83 QRS 40 T 65 Normal sinus rhythm Low voltage QRS No previous ECG available for comparison Assessment Klever Gallegos is a 77 y.o. male with a history significant for recent trauma with multiple rib and spinal fractures and embolized hematoma of the spleen as well as presumed essential tremor and vitamin D deficiency. He was hospitalized at [facility] 12/13/2022 to 12/25/2022 for above injuries. Admitted to the hospital medicine service 01/13/23 with altered mental status and weakness in the setting presumed PNA (vs UTI) with sepsis physiology. Over sedation from methocarbamol and dehydration in the setting of ongoing therapy with nonselective beta-renetta may be significant contributors to his presentation today as well. Principal Problem: Pneumonia Active Problems: Sepsis (HCC) ([facility]) Plan by problem Altered mental status secondary to presumed pneumonia with sepsis physiology and hypotension. Pt improved clinically after IVF and initial dose of antibiotics and subsequently denied any symptoms. Continue cefepime. Ordered further testing of procalcitonin and CRP to better classify the likelihood of a bacterial pneumonia vs atelectases. -Patient admitted on observation status with overnight telemetry and continuous pulse oximetry. -Continue cefepime. -Pro calcitonin was not elevated. CRP was 225 though could be from recent injuries. Repeat CBC and metabolic panel tomorrow, trend CRP and procalcionin. -Random glucose was also elevated in the ER. A1c ordered for tomorrow. If blood sugar remains elevated and/or A1c is in diabetic range begin correction dose insulin. -Changed methocarbamol to PRN; scheduled acetaminophen for pain control. -Blood pressures remained soft in the evening after initial improvement with IVF. Gave additional 0.5 L bolus of lactated Ringer's. Holding propranolol; consider restarting at a lower dose tomorrow prior to D/C BP remained soft after second bolus. POCUS performed by Dr. Friedman; IVC remain collapsible, small free-flowing effusion appreciated in left lower lobe. Repeated 0.5 mL). -Check orthostatics tomorrow. -Urine CLXRs are pending ATT. . Multiple rib and spinal fractures -No indication of instability on imaging today. -Methocarbamol changed to PRN given concerns for oversedation. -Started scheduled acetaminophen. -Consider topical NSAID if additional pain control is needed. -RT consult ordered for tomorrow. Dysphagia Head CT was unremarkable, no clear evidence of cranial nerve deficits or lateralizing symptoms. -May be related to xerostomia. Bolus and maintenance fluids as above. Consider sialagogue if membranes still dry tomorrow. -HOUSE DECORATOR evaluation ordered. Essential tremor -Holding MANAGER SIMULATION propranolol as above. -Formulary substitution for 250 mg of primidone as 300mg dose not available per pharmacy. Vitamin D deficiency/fragility fractures -Added vitamin D with calcium supplement versus D3 alone. -DEXA and/or bisphosphonate therapy could be considered in outpatient setting. Follow-up with PCP. Miscellaneous FEN: DIET REGULAR PPx: LMWH Code: Limitation of Treatment Discharge Plan: Return to prior rehab facility for SHANTA Consults: HOUSE DECORATOR Admission Status Observation. Anticipated duration of hospitalization is less than two midnights. I spent a total of 65 minutes on the date of this encounter meeting with the patient and reviewing documentation/coordinating care as described in the above note. This note was written with voice recognition software thus please excuse any inadvertent misspellings or errors. Asad Perez PA-C 01/13/2023 19:05 Associated attestation - Subhash Friedman MD - 01/13/2023 2206 EDT I independently evaluated the patient, reviewed imaging, performed POCUS and discussed the plan as below with AMINTA Perez. Initially presented with somnolence concerning for acute metabolic encephalopathy. On my exam he was eating dinner and quite alert, oriented x3, though very hard of hearing. Most likely source of infection meeting sepsis criteria is consolidation of the left lower lobe, though otherwise no overt infectious symptoms. Reviewed with POCUS, small free-flowing effusion is present, not amenable to tap, possibly related to recent splenic trauma. Otherwise he has no obvious source of infection notwithstanding CRP of 222.8, which may simply be related to recent trauma/spleniclac. Procal negative, plan to repeat in AM. Given his soft blood pressures, holding propranolol and giving IV fluid boluses, treating conservatively for HAP with cefepime. MRSA PCR pending. Hold sedating meds. IVC collapsible after 1.5L, repeat additional 500mL tonight for soft BPs. HOUSE DECORATOR eval. While he is initially difficult to rouse when he is sleeping, he perks up after a bit and conversesappropriately (very hard of hearing). If remains stable without declaration of alternative source, may be able to DC in 2 days back to [facility] on short course PO abx to cover PNA. #Acute toxic metabolic encephalopathy #LLL PNA with sepsis, hypotension corrected with IVF #Recent trauma with multiple rib/spinal fractures, splenic lac s/p embolization with resolving hematomas #Dysphagia #Essential tremor on propranolol #Severe malnutrition, BMI 17.5 FAVIAN Friedman MD Imaging reviewed: CT ABDOMEN PELVIS W CONTRAST Result Date: 01/13/2023 1. Left pleural effusion and left lower lobe atelectasis/consolidation. 2. Incompletely healed fracture deformities of bilateral ribs and lumbar transverse processes as well as the left sacral wing as detailed above. 3. 2 large communicating subcapsular low-density collections consistent with resolving hematomas. No active extravasation identified. 4. Cholelithiasis. 5. Bilateral renal cysts. 6. Numerous urinary bladder calculi. [id number] CT CERVICAL SPINE WO CONTRAST Result Date: 01/13/2023 1. Mild acute anterior wedge fracture deformities of the superior endplates of T1 and T2 and mild superior endplate compression fracture deformity of T3. No significant spinal stenosis or subluxationis identified at these levels. 2. Degenerative spondylosis of the cervical spine. I personally communicated these findings to Yg Kang MD on 01/13/2023 at 11:[id number] HEAD WO CONTRAST Result Date: 01/13/2023 No acute abnormality. [id number] XR CHEST PORTABLE 1 VIEW Result Date: 01/13/2023 1. Small left pleural effusion with patchy left base opacity which may reflect infiltrate or atelectasis. A follow-up chest x-ray in 2-3 months is recommended to assess for improvement. 2. Numerous lateral left chest wall incompletely healed but somewhat chronic rib fractures. [id number] documented in this encounter Consult Notes * Celine Jenkins, GUSTABO - 01/14/2023 0928 EDTAssociated Order(s): CONSULT NUTRITION Dietitian Inpatient Assessment Reason for assessment: severe malnutrition S: Pt reports his appetite is good, ate all his lunch. Family present share that pt was not eating well at SNF while on puree diet but has been doing well on regular diet. Pt denies difficulty swallowing, except for whole corn, that stuff gets stuck. O: Pt is 77 y.o. male with a history significant for recent trauma with multiple rib and spinal fractures and embolized hematoma of the spleen as well as presumed essential tremor and vitamin D deficiency. He was hospitalized at [facility] 12/13/2022 to 12/25/2022 for above injuries. ?? Admitted to the hospital medicine service 01/13/23 with altered mental status and weakness in the setting presumed PNA (vs UTI) with sepsis physiology. Over sedation from methocarbamol and dehydration in the setting of ongoing therapy with nonselective beta-renetta may be significant contributors to his presentation today as well per PA note. Past Medical History: Diagnosis Date ??? Coronary atherosclerosis Height: 175.3 cm (69) Weight : 53.7 kg (118 lb 6.4 oz) Body mass index is 17.48 kg/m??. Recent weight changes: Weights Filed This Admission 01/13/23 0956 01/13/23 1817 Weight: 51.7 kg (113 lb 14.4 oz) 53.7 kg (118 lb 6.4 oz) Wt Readings from Last 10 Encounters: 01/13/23 53.7 kg (118 lb 6.4 oz) Wgts at [facility] per Care Everywhere: 12/13/22: 66.2 kg (reported per RD note) 09/2020: 66.3 kg 04/2015: 81 kg Significant Laboratory Data: Lab Results Component Value Date/Time WBC 9.63 01/14/2023 06:45 HGB 11.1 (L) 01/14/2023 06:45 HCT 34.1 (L) 01/14/2023 06:45 MCV 92 01/14/2023 06:45 NA 137 01/14/2023 06:46 K 3.7 01/14/2023 06:46 CO2 27 01/14/2023 06:46 CL 102 01/14/2023 06:46 BUN 20 01/14/2023 06:46 CREATININE 0.54 (L) 01/14/2023 06:46 SERGLU 96 01/14/2023 06:46 CALCIUM 8.9 01/14/2023 06:46 MG 1.8 01/13/2023 10:02 No results found for: HGBA1C, GLUCOSEPOC No results found for: ZINCMZN, COPPER, THIAMINE, FOLATE, [id number], METMMETHY, VITEALPH, RETINOL, VITD No results found for: IRON, TIBC, FERRITIN Skin status and other: Skin Integrity: Moisture associated skin damange/Incontinence associated dermatitis, Blanchable Redness, Laceration/Incisions (coccyx abram, moisure in groin, sm inscision to right hip, dry skin, spine and coccyx bony) 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 NFPE: visible depletion to temples, buccal area, clavicle, acromion process Nutritionally significant medications: Scheduled acetaminophen, 975 mg, Q8H aspirin, 81 mg, DAILY calcium-vitamin D, 2 Tablet, DAILY cefepime, 2,000 mg, Q8H enoxaparin, 40 mg, DAILY primidone, 250 mg, TID Continuous PRN calcium carbonate, 2 Tablet, Q6H PRN lidocaine, 2 mg, PRN methocarbamoL, 500 mg, Q6H PRN polyethylene glycol 3350, 17 g, Daily PRN ramelteon, 8 mg, AT BEDTIME PRN Diet order: regular Nutrition Risk Level: High (1) Calories needed: 4055-6201 kcal kcal/k-30 Protein needed: 64 g protein grams/k.2 A: RD Malnutrition Assessment Pt w/s/s malnutrition r/t acute on chronic illness as evidenced by wgt loss >10% in <6 mo, 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 77 yo male admitted from SNF with PNA, sepsis. Consult rec'd for malnutrition. Pt reports eating well currently. Hx severe dysphagia in [id number] resulting in significant wgt loss, etiology of dysphagia unclear per ENT notes. Pt reports recent swallow study showed improvement in airway closing, feels he can handle anything except whole corn. RD briefly reviewed importance of good nutrition, pt verbalized understanding, states no questions or concerns at this time. Continue to encourage good PO. Wgt hx limited. Per care everywhere, wgt down 18.8% x ~5 wks. BMI underwgt. Family report pt lost wgt on puree diet due to not eating enough, but intake improved currently. Continue to follow wgt fortrends. Labs noted. Skin fragile. Suggest add MVM daily to support adequate micronutrient intake for healing in the setting of recentwgt loss, reported poor PO. P: Continue diet Please add MVM daily Encourage good PO Continue to monitor intake, wgt, labs, skin, bowels, comfort RD following Celine Jenkins MS, RD, CD documented in this encounter ED Notes * Arcadio Coats RN - 01/13/2023 1733 EDT Report given to STELLA Marrero. Transport request made, PT ready to move, VSS. * Arcadio Coats RN - 01/13/2023 1723 EDT PT stable, sleeping, VSS. Will notify Shayla Gutierrez. * Naa Gutierrez RN - 01/13/2023 1017 EDT Blood drawn via butterfly needle per protocol, cultures tube(s) sent to lab per order. * Erickson Mott - 01/13/2023 0955 EDT Emergency Department Visit Medical Decision Making Klever is a 77-year-old gentleman with a recent fall resulting in splenic laceration and multiple transverse process and spinous process fractures for which he required an IR embolization of the spleen. [facility] He presents today because this morning hewas too weak to get out of bed and acutely altered whereas yesterday and the days previously been able to walk around with a walker and was conversant. On presentation is stable vital signs and is afebrile only notable for low systolic of 105. He has a nonfocal neurological exam however he is diffusely weak in all of his extremities but this is equal and symmetrical. He is unable to follow commands for finger-nose or heel arellano. CN II through XII are intact however. He is able to answer some questions correctly such as his name, where he is and the year but quickly loses focus during conversation and falls asleep during questioning. Overall I have low concern for stroke given his nonfocal findings but we will get a CT head given his fall several days ago. His lab work came back with a reassuring CBC only notable for slightly increased WBC of 12.7, magnesium was normal, CMP was normal. Relevant Data as of 01/13/23 1715 FriJan 13, 2023 1043 Discussed with daughter Maria Esther on the phone who states that patient was previously independent before he fell and had to be admitted for the splenic laceration and spinal fractures along with ribfractures. They briefly considered comfort care when he initially refused surgery but he has since changed his mind and underwent the embolization. He is still DNR/DNI. Additional information was also gained from the nurse who spoke with the facility who stated that patient fell on his bottom on Friday but was doing well since then. He is normally able to walk with a walker unassisted was recently advance from dysphagia to regular diet. However this morning he was significantly weaker and unable to get a bed unassisted and was incontinent which is abnormal for him. [NL] 1150 Labs notable for normal lactic acid, normal magnesium, CBC notable for mildly elevated WBC of 12.97 and hemoglobin of 13.2, CMP reassuring. [NL] 1151 CT C-spine had no acute fracture and CT head had no acute findings. [NL] 1151 Chest x-ray notable for small effusion versus atelectasis and numerous rib fractures. [NL] [address] abdomen pelvis had a concern that his possible splenic injury may lead to an abscess formation causing his symptoms. [NL] 1425 CT abdomen notable for possible pleural effusion and left lower lobe atelectasis/consolidationand numerous fractures. Given his altered mental status, numerous rib fractures, and new oxygen requirement this is likely pneumonia. Patient had a desaturation when asleep on room air requiring 2 L of facemask. We will continue to monitor. [NL] 1434 Spoke with daughter again about likely pneumonia. Clarified again that he values his independence and has stated in the past he does not want any major surgeries or life-sustaining interventionssuch as breathing tubes or tube feeds. Per daughter he would except antibiotics and minor procedures but would not want to be sustained on tube feeds or IV nutrition. Daughter says that she will cometomorrow afternoon to further discuss goals of care. Plan at this time is to admit for management of likely pneumonia. [NL] 1437 On reevaluation patient has 95% oxygen saturation on room air. He is still very sleepy and will briefly awaken but does not answer most questions and then goes back to sleep. [NL] 1532 Patient urinalysis notable for 2+ blood, urobilinogen, trace leuk esterases. [NL] Relevant Data User Index [NL] Erickson Mott Patient denies any dysuria difficulty urinating. Given his only trace leukocyte Estrace have low suspicion for active UTI causing his current infection and this is more likely a chronic infection. Given his CT finding of possible pneumonia in the setting of rib fractures I felt this is more likely source of infection we will treat him with antibiotic therapy for hospital-acquired pneumonia per [employer] recommendations. Patient was discussed with hospitalist who admitted him for further management. Patient was monitored in the department and remained stable until he was admitted to the floor. His daughter was updated with the plan. An EKG was obtained and independently interpreted. Laboratory data was reviewed. Medical Decision Making Pneumonia: acute illness or injury Amount and/or Complexity of Data Reviewed Labs: ordered. Radiology: ordered. Risk Prescription drug management. Decision regarding hospitalization. Final diagnoses: Pneumonia Disposition: Admitted Chief complaint: Altered mental status, weakness HPI Edmelanie Gallegos is a 77 y.o. male with recent admission on 12/13 for grade 3 splenic laceration and compression fracture of T1 vertebra, transverse fractures, and sacrum after a fall status post embolization currently at [facility] who presents to the ED for altered mental status and difficulty ambulating per staff. Per EMS report were told by staff patient is normally talkative and mobile but had an acute decrease in his mental status mobility today. On discussion with the patient he is very slow to respond but knows his name, where he is and the year but cannot give a clear answer as to why he was brought into the hospital. History was provided by: Patient, EMS Records reviewed include: Patient's pertinent PMH, FH, SH were reviewed and edited as necessary. Nursing notes reviewed. A medical screening exam was performed. Physical Exam BP 120/74 Pulse 84 Temp 36.6 ??C (97.8 ??F) (Oral) Resp 22 Wt 51.7 kg (113 lb 14.4 oz) SpO2 96% Physical Exam General: NAD, cachectic appearing Neuro: Alert to person, place, time, CN II through XII intact, EOMI, PERRL, 4/5 bilateral chemical etching processor strength and plantarflexion CV: Regular rate and rhythm Pulm: Clear to auscultation bilaterally Abdomen: Soft nontender nondistended Chest: Tender to palpation of right clavicle where he states he had a fracture Extremities: No edema Procedures Procedures Associated attestation - Peter Alston MD - 01/13/2023 1839 EDT I, Peter Alston MD, performed a history and exam of this patient and discussed the case with the resident. I have reviewed and edited this note, and the documentation is consistent with my findings, assessment and plan. I fully participated in the medical decision making. documented in this encounter Miscellaneous Notes * Plan of Care - Preeti Mims - 01/17/2023 1043 EDT 01/17/23 1042 Medicare IM Notice IM notice status Patient received notification verbally and in writing while in hospital. IM notice given at discharge? Yes * Plan of Care - Natalie Solis RN - 01/16/2023 0225 EDT Problem: High Fall Risk: Goal: Patient will Remain Free of Falls due to Altered Mobility Outcome: Ongoing Problem: SKIN INTEGRITY Goal: Skin integrity will improve or be maintained Outcome: Ongoing Problem: Risk For Imapaired Skin Integrity Goal: Incontinence Is Managed Outcome: Ongoing * Plan of Care - Luda Lopez RN - 01/15/2023 1355 EDT Assumed care of patient at 0700. Pt sleeping in bed at that time. Scheduled APAP with good effect, pt denies pain. Pt A&Ox3, able to make needs known; [place]. Pt remains on IV cefepime and PO Vantin, tolerating treatment well. OOB to chair for lunch today, SBA. HOUSE DECORATOR in to see patient, no swallowingissues noted. NSR on tele, patient denies SOB or CP. Pt using the urinal independently, voiding adeq uate amounts. Please see MAR and flowsheet for more information. WCTM. Problem: Delirium Prevention Management Goal: Mental status/cognition is maintained/returned to baseline Outcome: Ongoing Goal: Sensory Stimuli Reduction Outcome: Ongoing Goal: Early Mobilization Is Achieved Outcome: Ongoing Goal: Normal Sleep Promoted Outcome: Ongoing Problem: Daily Care Plan Goals Goal: Care Plan Documentation Outcome: Ongoing Problem: High Fall Risk: Goal: Patient will Remain Free of Falls due to Med. Side Effects Outcome: Ongoing Problem: High Fall Risk: Goal: Patient Will Remain Free from Fall-Related Injury Outcome: Ongoing Problem: High Fall Risk: Goal: Patient will Remain Free of Falls due to Altered Elimination Outcome: Ongoing Problem: High Fall Risk: Goal: Patient will Remain Free of Falls due to Altered Mobility Outcome: Ongoing Problem: Sensory: Goal: Ability to compensate for vision loss will be supported Outcome: Ongoing Problem: SKIN INTEGRITY Goal: Skin integrity will improve or be maintained Outcome: Ongoing Problem: Pressure Ulcer Prevention Goal: Absence Of Pressure Ulcer Outcome: Ongoing Problem: Risk For Imapaired Skin Integrity Goal: Incontinence Is Managed Outcome: Ongoing Problem: Impaired Skin Integrity Goal: Signs of wound healing will improve Outcome: Ongoing Problem: Sensory: Goal: Ability to understand and participate in conversations will be supported Outcome: Ongoing Problem: Impaired Skin Integrity Goal: Signs of wound healing will improve Outcome: Ongoing * Plan of Care - Natalie Solis RN - 01/15/2023 0218 EDT Problem: Delirium Prevention Management Goal: Mental status/cognition is maintained/returned to baseline Outcome: Ongoing Goal: Normal Sleep Promoted Outcome: Ongoing Problem: High Fall Risk: Goal: Patient Will Remain Free from Fall-Related Injury Outcome: Ongoing Note: Hourly rounding, bed alarmed, non-skid socks in place. Problem: SKIN INTEGRITY Goal: Skin integrity will improve or be maintained Outcome: Ongoing Note: Q2H turn +Repos, heels offloaded, foam to heels, sacrum and spine. Problem: Pressure Ulcer Prevention Goal: Absence Of Pressure Ulcer Outcome: Ongoing * Plan of Care - Keerthi Le RN - 01/14/2023 1842 EDT Problem: Daily Care Plan Goals Goal: Care Plan Documentation Outcome: Met This Shift Flowsheets (Taken 01/14/2023 0823) Area of Focus: Safety Goal This Shift: pt. will remain free from injury Note: Data: pt. Presented with soft Bps (see flowsheet). Pt. Reports no pain, no YANG, no dizziness, no chest pain, no N/V. Action: MD notified. Bolus 500 mLs NS administered x2 per orders. Scheduled medication administeredper orders (see emar). Q2 repositioning offered. Family updated at bedside. Mepilex to bottom and spine for prophylaxis, foam to heels. Response: Pt. A/Ox3. Pt. Stable on RA. Pt. Able to make needs known and uses call scott appropriately. Pt. Incontinent of urine with external catheter in place. Hourly rounding for safety. WCTM. Keerthi Le RN 01/14/2023 18:36 Problem: High Fall Risk: Goal: Patient will Remain Free of Falls due to Med. Side Effects Outcome: Met This Shift Problem: High Fall Risk: Goal: Patient Will Remain Free from Fall-Related Injury Outcome: Met This Shift Problem: High Fall Risk: Goal: Patient will Remain Free of Falls due to Altered Elimination Outcome: Met This Shift Problem: High Fall Risk: Goal: Patient will Remain Free of Falls due to Altered Mobility Outcome: Met This Shift Problem: Sensory: Goal: Ability to compensate for vision loss will be supported Outcome: Met This Shift Problem: SKIN INTEGRITY Goal: Skin integrity will improve or be maintained Outcome: Met This Shift Problem: Pressure Ulcer Prevention Goal: Absence Of Pressure Ulcer Outcome: Met This Shift Problem: Risk For Imapaired Skin Integrity Goal: Incontinence Is Managed Outcome: Met This Shift Problem: Impaired Skin Integrity Goal: Signs of wound healing will improve Outcome: Ongoing Problem: Impaired Skin Integrity Goal: Signs of wound healing will improve Outcome: Ongoing Problem: Sensory: Goal: Ability to understand and participate in conversations will be supported Outcome: Ongoing * Plan of Care - Keerthi Mares - 01/14/2023 1046 EDT 01/14/23 1046 Medicare IM Notice IM notice status Patient received notification verbally and in writing while in hospital. IM notice given on admission? Yes Given on 01/13/23 * Plan of Care - Elida Vargas RN - 01/13/20232004 EDT Problem: Delirium Prevention Management Goal: Mental status/cognition is maintained/returned to baseline Outcome: Ongoing Problem: High Fall Risk: Goal: Patient Will Remain Free from Fall-Related Injury Outcome: Ongoing Problem: SKIN INTEGRITY Goal: Skin integrity will improve or be maintained Outcome: Ongoing Problem: Impaired Skin Integrity Goal: Signs of wound healing will improve Outcome: Ongoing Problem: Daily Care Plan Goals Goal: Care Plan Documentation Outcome: Met This Shift Flowsheets (Taken 01/13/20231816) Area of Focus: Pain/ Comfort Goal This Shift: Get pt settled to the floor for the evening. Data: Pt arrived to the floor at 1815 and report was taken from Arcadio Higginbotham RN in ED. Pt is [facility] was brought to the ED for AMS/weakness and not acting his usual self. Pt had CT scan done and showed pneumonia and will be treated with ABX. Pt A/Ox3, denies pain but shows discomfort when rolling in the bed, slightly dyspneic but all other VSS. Pt has PMH of coronary atherosclerosis. Pt on regular diet, tele monitoring, briefs d/t incontinence at times, uses urinal when appropriate, continuous pulse ox and able to make needs known. Action: Admission assessment and questions complete, dinner brought up for pt and ws placed on menuassist. Second skin check done with STELLA Flores (see skin note). Mepilex's placed on coccyx and spine to prevent further skin breakdown. Response: Pt currently in bed, showing no signs of pain or discomfort, call scott within reach, telemonitoring in place and all VSS. No other concerns noted upon change of shift. ELIDA VARGAS RN 01/13/2023 20:05 documented in this encounter Plan of Treatment Scheduled Referrals Name Type Priority Associated Diagnoses Order Schedule PROVIDER FOLLOW-UP INSTRUCTIONS Outpatient Referral Routine Ordered: 01/17/2023 PROVIDER FOLLOW-UP INSTRUCTIONS Outpatient Referral Routine Ordered: 01/17/2023 documented as of this encounter Procedures Procedure Name Priority Date/Time Associated Diagnosis Comments ECG REPORT - SCANNED 01/22/2023 11:57 EDT ECG REPORT - SCANNED 01/17/2023 13:36 EDT COMPLETE BLOOD COUNT AND DIFFERENTIAL Routine 01/17/2023 6:14 EDT BASIC METABOLIC PANEL (BMP) Routine 01/17/2023 6:14 EDT COMPLETE BLOOD COUNT AND DIFFERENTIAL Routine 01/16/2023 6:27 EDT C REACTIVE PROTEIN Routine 01/16/2023 6: 27 EDT BASIC METABOLIC PANEL (BMP) Routine 01/16/2023 6:27 EDT COMPLETE BLOOD COUNT AND DIFFERENTIAL Routine 01/15/2023 6:26 EDT C REACTIVE PROTEIN Routine 01/15/2023 6: 25 EDT BASIC METABOLIC PANEL (BMP) Routine 01/15/2023 6:25 EDT ECG REPORT - SCANNED 01/15/2023 5:23 EDT C REACTIVE PROTEIN Routine 01/14/2023 6: 46 EDT BASIC METABOLIC PANEL (BMP) Routine 01/14/2023 6:46 EDT PROCALCITONIN Routine 01/14/2023 6:45 EDT COMPLETE BLOOD COUNT AND DIFFERENTIAL Routine 01/14/2023 6:45 EDT HEMOGLOBIN A1C Routine 01/14/2023 6:45 EDT MRSA PCR Routine 01/13/2023 21:57 EDT PROCALCITONIN Routine 01/13/2023 19:41 EDT C REACTIVE PROTEIN Routine 01/13/2023 19 :41 EDT BLOOD GASES, VENOUS Routine 01/13/2023 1 6:59 EDT POCT URINE DIPSTICK, VISUAL READ STAT 01/13/2023 14:53 EDT UA SEDIMENT (CULTURE IF POS) STAT 01/13/2023 14:52 EDT UA WITH REFLEX SEDIMENT (CULTURE IF POS) STAT 01/13/2023 14:52 EDT BACTERIAL CULTURE, URINE Today 01/13/2023 14:[address] ABDOMEN PELVIS W CONTRAST STAT 01/13/2023 12:[address] HEAD WO CONTRAST STAT 01/13/2023 1 1:[address] CERVICAL SPINE WO CONTRAST STAT 01/13/2023 11:22 EDT XR CHEST PORTABLE 1 VIEW STAT 01/13/2023 11:15 EDT LACTIC ACID WITH REFLEX - USE FOR INITIAL SEPSIS EVALUATION STAT 01/13/2023 10:30 EDT BACTERIAL CULTURE, BLOOD STAT 01/13/2023 10:30 EDT BACTERIAL CULTURE, BLOOD STAT 01/13/2023 10:17 EDT HN LAB CBC SMEAR REVIEW Today 01/13/2023 10:02 EDT COMPLETE BLOOD COUNT AND DIFFERENTIAL STAT 01/13/2023 10:02 EDT MAGNESIUM STAT 01/13/2023 10:02 EDT CK Add-On 01/13/2023 10:02 EDT COMPREHENSIVE METABOLIC PANEL (CMP) STAT 01/13/2023 10:02 EDT EKG 12-LEAD STAT 01/13/2023 10:00 EDT documented in this encounter Results * ECG REPORT - SCANNED (01/22/2023 11:57 EDT) 01/22/2023 11:5 7 EDT Scan 2 Reinforcing Steel Erector PROCEDURE/MINOR ROSSI GICAL ORDERABLES * ECG REPORT - SCANNED (01/17/2023 13:36 EDT) 01/17/2023 13:3 6 EDT Scan 2 Reinforcing Steel Erector PROCEDURE/MINOR ROSSI GICAL ORDERABLES * (ABNORMAL) COMPLETE BLOOD COUNT AND DIFFERENTIAL (01/17/2023 6:14 EDT) WBC 5.14 4.00 - 10.40 K/cmm 01/17/2023 6:50 EDT [facility] RBC 3.72(L) 4.36 - 5.78 M/cmm 01/17/2023 6:50 EDT [facility] Hemoglobin 11.0(L) 13.8 - 17.3 g/dL 01/17/2023 6:50 EDT [facility] HCT 33.0(L) 39.5 - 50.2 % 01/17/2023 6:50 EDT [facility] MCV 89 81 - 95 fL 01/17/2023 6:50 [facility] MCH 29.6 27.6 - 33.0 pg 01/17/2023 6:50 [facility] MCHC 33.3 32.8 - 36.4 g/dL 01/17/2023 6:50 [facility] RDW-CV 15.8(H) <14.2 % 01/17/2023 6:50 [facility] RDW-SD 51.8(H) <46.0 fl 01/17/2023 6:50 [facility] PLT 313 141 - 377 K/cmm 01/17/2023 6:50 [facility] MPV 10.1 9.5 - 12.7 fL 01/17/2023 6:50 [facility] % Neutrophils 69.5 % 01/17/2023 6:50 [facility] % Lymphocytes 16.9 % 01/17/2023 6:50 [facility] % Monocytes 9.5 % 01/17/2023 6:50 [facility] % Eosinophils 3.1 % 01/17/2023 6:50 [facility] % Basophils 0.8 % 01/17/2023 6:50 [facility] % Immature Grans 0.2 % 01/18/20 6:50 [facility] Absolute Neutrophils 3.57 2.20 - 8.85 K/cmm 01/17/2023 6:50 [facility] Absolute Lymphocytes 0.87(L) 1.09 - 3.30 K/cmm 01/17/2023 6:50 [facility] Absolute Monocytes 0.49 0.10 - 0.80 K/cmm 01/17/2023 6:50 [facility] Absolute Eosinophils 0.16 0.03 - 0.61 K/cmm 01/17/2023 6:50 [facility] ABS Basophils 0.04 0.01 - 0.11 K/cmm 01/17/2023 6:50 [facility] Absolute Immature Grans 0.01 0.00 - 0.06 K/cmm 01/17/2023 6:50 [facility] Type of Differential: Auto 01/17/2023 6:50 [facility] Blood VENOUS BLOOD / Unknown Venipuncture / Unknown 01/17/2023 6:14 EDT 01/17/2023 6:46 EDT Asad Perez PA-C PACKAGES & DNA PROBE ORDERABLES [facility] [address] [place] [address] * (ABNORMAL) BASIC METABOLIC PANEL (BMP) (01/17/2023 6:14 EDT) Sodium 135(L) 136 - 145 mmol/L 01/17/2023 7:22 [facility] Potassium 3.7 3.5 - 5.0 mmol/L 01/17/2023 7:22 [facility] Chloride 100 96 - 110 mmol/L 01/17/2023 7:22 [facility] CO2 Total 28 22 - 32 mmol/L 01/17/2023 7:22 [facility] Anion Gap 7 5 - 14 mmol/L 01/17/2023 7:22 [facility] Glucose 89 70 - 100 mg/dl 01/17/2023 7:22 [facility] Calcium 8.4(L) 8.5 - 10.5 mg/dL 01/17/2023 7:22 [facility] BUN 14 10 - 26 mg/dL 01/17/2023 7:22 [facility] Creatinine 0.42(L) 0.66 - 1.25 mg/dL 01/17/2023 7:22 [facility] eGFR 112 >60 mL/min/1.73 m2 01/17/2023 7:22 [facility] Blood VENOUS BLOOD / Unknown Venipuncture / Unknown 01/17/2023 6:14 EDT 01/17/2023 6:46 EDT Asad Perez PA-C CHEMISTRY & BLOOD GA S ORDERABLES [facility] [address] [place] [address] * (ABNORMAL) COMPLETE BLOOD COUNT AND DIFFERENTIAL (01/16/2023 6:27 EDT) WBC 4.70 4.00 - 10.40 K/cmm 01/16/2023 6:45 EDT [facility] RBC 3.52(L) 4.36 - 5.78 M/cmm 01/16/2023 6:45 [facility] Hemoglobin 10.6(L) 13.8 - 17.3 g/dL 01/16/2023 6:45 [facility] HCT 32.0(L) 39.5 - 50.2 % 01/16/2023 6:45 [facility] MCV 91 81 - 95 fL 01/16/2023 6:45 [facility] MCH 30.1 27.6 - 33.0 pg 01/16/2023 6:45 [facility] MCHC 33.1 32.8 - 36.4 g/dL 01/16/2023 6:45 [facility] RDW-CV 16.0(H) <14.2 % 01/16/2023 6:45 [facility] RDW-SD 53.3(H) <46.0 fl 01/16/2023 6:45 [facility] PLT 262 141 - 377 K/cmm 01/16/2023 6:45 [facility] MPV 9.9 9.5 - 12.7 fL 01/16/2023 6:45 [facility] % Neutrophils 67.6 % 01/16/2023 6:45 [facility] % Lymphocytes 16.8 % 01/16/2023 6:45 [facility] % Monocytes 9.8 % 01/16/2023 6:45 EDT [facility] % Eosinophils 4.7 % 01/16/2023 6:45 [facility] % Basophils 0.9 % 01/16/2023 6:45 [facility] % Immature Grans 0.2 % 01/17/20 6:45 [facility] Absolute Neutrophils 3.18 2.20 - 8.85 K/cmm 01/16/2023 6:45 [facility] Absolute Lymphocytes 0.79(L) 1.09 - 3.30 K/cmm 01/16/2023 6:45 [facility] Absolute Monocytes 0.46 0.10 - 0.80 K/cmm 01/16/2023 6:45 [facility] Absolute Eosinophils 0.22 0.03 - 0.61 K/cmm 01/16/2023 6:45 [facility] ABS Basophils 0.04 0.01 - 0.11 K/cmm 01/16/2023 6:45 [facility] Absolute Immature Grans 0.01 0.00 - 0.06 K/cmm 01/16/2023 6:45 [facility] Type of Differential: Auto 01/16/2023 6:45 [facility] Blood VENOUS BLOOD / Unknown Venipuncture / Unknown 01/16/2023 6:27 EDT 01/16/2023 6:37 EDT Asad Perez PA-C PACKAGES & DNA PROBE ORDERABLES [facility] [address] [place] [address] * (ABNORMAL) BASIC METABOLIC PANEL (BMP) (01/16/2023 6:27 EDT) Sodium 136 136 - 145 mmol/[facility] Potassium 3.7 3.5 - 5.0 mmol/L 01/16/2023 7:00 [facility] Chloride 103 96 - 110 mmol/L 01/16/2023 7:00 EDT [facility] CO2 Total 28 22 - 32 mmol/L 01/16/2023 7:00 EDT [facility] Anion Gap 5 5 - 14 mmol/L 01/16/2023 7:00 EDT [facility] Glucose 97 70 - 100 mg/dl 01/16/2023 7:00 EDT [facility] Calcium 8.5 8.5 - 10.5 mg/dL 01/16/2023 7:00 EDT [facility] BUN 15 10 - 26 mg/dL 01/16/2023 7:00 EDT [facility] Creatinine 0.52(L) 0.66 - 1.25 mg/dL 01/16/2023 7:00 EDT [facility] eGFR 105 >60 mL/min/1.73 m2 01/16/2023 7:00 EDT [facility] Blood VENOUS BLOOD / Unknown Venipuncture / Unknown 01/16/2023 6:27 EDT 01/16/2023 6:37 EDT Asad Perez PA-C CHEMISTRY & BLOOD GA S ORDERABLES Performing Organization Address City/[facility]/ZIP Co de Phone Number [facility] [address] [place] [address] * (ABNORMAL) C REACTIVE PROTEIN (01/16/2023 6:27 EDT) C-Reactive Protein 124.1(H) <10.0 mg/L 01/16/2023 7:23 EDT [facility] Blood VENOUS BLOOD / Unknown Venipuncture / Unknown 01/16/2023 6:27 EDT 01/16/2023 6:37 EDT Paige Mitchell MD CHEMISTRY & BLOOD GAS ORDERABLES Performing Organization Address City/[facility]/ZIP Co de Phone Number [facility] [address] [place] [address] * (ABNORMAL) COMPLETE BLOOD COUNT AND DIFFERENTIAL (01/15/2023 6:26 EDT) [facility] WBC 6.16 4.00 - 10.40 K/cmm 01/15/2023 7:04 [facility] RBC 3.41(L) 4.36 - 5.78 M/cmm 01/15/2023 7:04 [facility] Hemoglobin 10.2(L) 13.8 - 17.3 g/dL 01/15/2023 7:04 [facility] HCT 31.1(L) 39.5 - 50.2 % 01/15/2023 7:04 [facility] MCV 91 81 - 95 fL 01/15/2023 7:04 [facility] MCH 29.9 27.6 - 33.0 pg 01/15/2023 7:04 [facility] MCHC 32.8 32.8 - 36.4 g/dL 01/15/2023 7:04 [facility] RDW-CV 16.3(H) <14.2 % 01/15/2023 7:04 [facility] RDW-SD 55.4(H) <46.0 fl 01/15/2023 7:04 [facility] PLT 240 141 - 377 K/cmm 01/15/2023 7:04 [facility] MPV 10.5 9.5 - 12.7 fL 01/15/2023 7:04 [facility] % Neutrophils 74.2 % 01/15/2023 7:04 [facility] % Lymphocytes 12.5 % 01/15/2023 7:04 [facility] % Monocytes 8.8 % 01/15/2023 7:04 [facility] % Eosinophils 3.6 % 01/15/2023 7:04 [facility] % Basophils 0.6 % 01/15/2023 7:04 [facility] % Immature Grans 0.3 % 01/16/20 7:04 [facility] Absolute Neutrophils 4.57 2.20 - 8.85 K/cmm 01/15/2023 7:04 EDT [facility] LAB Absolute Lymphocytes 0.77(L) 1.09 - 3.30 K/cmm 01/15/2023 7:04 [facility] Absolute Monocytes 0.54 0.10 - 0.80 K/cmm 01/15/2023 7:04 [facility] Absolute Eosinophils 0.22 0.03 - 0.61 K/cmm 01/15/2023 7:04 [facility] ABS Basophils 0.04 0.01 - 0.11 K/cmm 01/15/2023 7:04 [facility] Absolute Immature Grans 0.02 0.00 - 0.06 K/cmm 01/15/2023 7:04 [facility] Type of Differential: Auto 01/15/2023 7:04 [facility] Blood VENOUS BLOOD / Unknown Venipuncture / Unknown 01/15/2023 6:26 EDT 01/15/2023 6:51 EDT Asad Perez PA-C PACKAGES & DNA PROBE ORDERABLES Performing Organization Address City/State/[facility] Co de Phone Number [facility] [address] [place] [address] * (ABNORMAL) BASIC METABOLIC PANEL (BMP) (01/15/2023 6:25 EDT) Sodium 137 136 - 145 mmol/L [facility] Potassium 3.8 3.5 - 5.0 mmol/L 01/15/2023 7:30 [facility] Chloride 106 96 - 110 mmol/L 01/15/2023 7:30 [facility] CO2 Total 25 22 - 32 mmol/L 01/15/2023 7:30 [facility] Anion Gap 6 5 - 14 mmol/L 01/15/2023 7:30 [facility] Glucose 98 70 - 100 mg/dl 01/15/2023 7:30 EDT [facility] Calcium 8.4(L) 8.5 - 10.5 mg/dL 01/15/2023 7:30 EDT [facility] BUN 20 10 - 26 mg/dL 01/15/2023 7:30 EDT [facility] Creatinine 0.57(L) 0.66 - 1.25 mg/dL 01/15/2023 7:30 EDT [facility] eGFR 102 >60 mL/min/1.73 m2 01/15/2023 7:30 EDT [facility] Blood VENOUS BLOOD / Unknown Venipuncture / Unknown 01/15/2023 6:25 EDT 01/15/2023 6:51 EDT Asad Perez PA-C CHEMISTRY & BLOOD GA S ORDERABLES Performing Organization Address City/[facility]/ZIP Co de Phone Number [facility] [address] [place] [address] * (ABNORMAL) C REACTIVE PROTEIN (01/15/2023 6:25 EDT) C-Reactive Protein 181.8(H) <10.0 mg/L 01/15/2023 7:46 EDT [facility] Blood VENOUS BLOOD / Unknown Venipuncture / Unknown 01/15/2023 6:25 EDT 01/15/2023 6:51 EDT Nata Parrish MD CHEMISTRY & BLOOD GA S ORDERABLES Performing Organization Address City/[facility]/ZIP Co de Phone Number [facility] [address] [place] [address] * ECG REPORT - SCANNED (01/15/2023 5:23 EDT) 01/15/2023 5:23 EDT Scan 2 [employer] Erector PROCEDURE/MINOR ROSSI GICAL ORDERABLES * (ABNORMAL) BASIC METABOLIC PANEL (BMP) (01/14/2023 6:46 EDT) Sodium 137 136 - 145 mmol/L 01/14/2023 7:23 [facility] Potassium 3.7 3.5 - 5.0 mmol/L 01/14/2023 7:23 [facility] Chloride 102 96 - 110 mmol/L 01/14/2023 7:23 [facility] CO2 Total 27 22 - 32 mmol/L 01/14/2023 7:23 [facility] Anion Gap 8 5 - 14 mmol/L 01/14/2023 7:23 [facility] Glucose 96 70 - 100 mg/dl 01/14/2023 7:23 [facility] Calcium 8.9 8.5 - 10.5 mg/dL 01/14/2023 7:23 [facility] BUN 20 10 - 26 mg/dL 01/14/2023 7:23 [facility] Creatinine 0.54(L) 0.66 - 1.25 mg/dL 01/14/2023 7:23 [facility] eGFR 104 >60 mL/min/1.73 m2 01/14/2023 7:23 [facility] Blood VENOUS BLOOD / Unknown Venipuncture / Unknown 01/14/2023 6:46 EDT 01/14/2023 6:59 EDT Asad Perez PA-C CHEMISTRY & BLOOD NM S ORDERABLES Performing Organization Address City/[facility]/ZIP Co de Phone Number [facility] [address] [place] [address] * (ABNORMAL) C REACTIVE PROTEIN (01/14/2023 6:46 EDT) C-Reactive Protein 225.2(H) <10.0 mg/L 01/14/2023 7:39 EDT [facility] Blood VENOUS BLOOD / Unknown Venipuncture / Unknown 01/14/2023 6:46 EDT 01/14/2023 6:59 EDT Asad Perez PA-C CHEMISTRY & BLOOD GA S ORDERABLES [facility] [address] [place] [address] * (ABNORMAL) COMPLETE BLOOD COUNT AND DIFFERENTIAL (01/14/2023 6:45 EDT) WBC 9.63 4.00 - 10.40 K/cmm 01/14/2023 7:03 EDT [facility] RBC 3.71(L) 4.36 - 5.78 M/cmm 01/14/2023 7:03 [facility] Hemoglobin 11.1(L) 13.8 - 17.3 g/dL 01/14/2023 7:03 [facility] HCT 34.1(L) 39.5 - 50.2 % 01/14/2023 7:03 [facility] MCV 92 81 - 95 fL 01/14/2023 7:03 [facility] MCH 29.9 27.6 - 33.0 pg 01/14/2023 7:03 [facility] MCHC 32.6(L) 32.8 - 36.4 g/dL 01/14/2023 7:03 [facility] RDW-CV 16.4(H) <14.2 % 01/14/2023 7:03 [facility] RDW-SD 56.0(H) <46.0 fl 01/14/2023 7:03 [facility] PLT 249 141 - 377 K/cmm 01/14/2023 7:03 [facility] MPV 10.0 9.5 - 12.7 fL 01/14/2023 7:03 [facility] % Neutrophils 80.2 % 01/14/2023 7:03 [facility] % Lymphocytes 6.9 % 01/14/2023 7:03 [facility] % Monocytes 11.3 % 01/14/2023 7:03 [facility] % Eosinophils 0.8 % 01/14/2023 7:03 [facility] % Basophils 0.5 % 01/14/2023 7:03 [facility] % Immature Grans 0.3 % 01/15/20 7:03 [facility] Absolute Neutrophils 7.72 2.20 - 8.85 K/cmm 01/14/2023 7:03 [facility] Absolute Lymphocytes 0.66(L) 1.09 - 3.30 K/cmm 01/14/2023 7:03 [facility] Absolute Monocytes 1.09(H) 0.10 - 0.80 K/cmm 01/14/2023 7:03 [facility] Absolute Eosinophils 0.08 0.03 - 0.61 K/cmm 01/14/2023 7:03 [facility] ABS Basophils 0.05 0.01 - 0.11 K/cmm 01/14/2023 7:03 [facility] Absolute Immature Grans 0.03 0.00 - 0.06 K/cmm 01/14/2023 7:03 [facility] Type of Differential: Auto 01/14/2023 7:03 [facility] Blood VENOUS BLOOD / Unknown Venipuncture / Unknown 01/14/2023 6:45 EDT 01/14/2023 6:59 EDT Asad Perez PA-C PACKAGES & DNA PROBE ORDERABLES Performing Organization Address City/State/[facility] Co de Phone Number [facility] [address] [place] [address] * PROCALCITONIN (01/14/2023 6:45 EDT) Procalcitonin 0.08 See Note ng/mL 01/14/2023 8:10 EDT [facility] Comment: NOTE: Reference Range: <0.5 ng/mL - Low risk of severe sepsis >2.0 ng/mL - High risk of severe sepsis Blood VENOUS BLOOD / Unknown Venipuncture / Unknown 01/14/2023 6:45 EDT 01/14/2023 6:59 EDT Subhash Friedman MD CHEMISTRY & BLOOD GA S ORDERABLES Performing Organization Address [facility] Co de Phone Number [facility] [address] [place] [address] * HEMOGLOBIN A1C (01/14/2023 6:45 EDT) [facility] Hemoglobin A1c 5.2 <5.7 % 01/14/2023 19:12 EDT [facility] Comment: Glycemic Status References: Normal: ??<5.7% Pre-Diabetes: ??5.7% - 6.4% Diagnostic of Diabetes: ??> or = 6.5% (if confirmed) Est Avg Glucose 103 mg/dL 19:12 EDT [facility] Comment:The eAG represents t he A1c result expressed as average glucose in mg/dL. Blood VENOUS BLOOD / Unknown Venipuncture / Unknown 01/14/2023 6:45 EDT 01/14/2023 6:59 EDT Asad Perez PA-C CHEMISTRY & BLOOD GA S ORDERABLES Performing Organization Address [facility] Co de Phone Number [facility] [address] [place] [address] * MRSA PCR (01/13/2023 21:57 EDT) [facility] MRSA PCR Not Detected Not Detected 01/13/2023 23:14 EDT [facility] Comment:MRSA target DNA is n ot detected (presumed not colonized with MRSA). Swab ENTIRE NARIS / Unknown Swab / Unknown 01/13/2023 21:57 EDT 01/13/2023 22:03 EDT Subhash Friedman MD MICROBIOLOGY - GENER AL ORDERABLES Performing Organization Address [facility]/ZIP Co de Phone Number [facility] [address] [place] [address] * (ABNORMAL) C REACTIVE PROTEIN (01/13/2023 19:41 EDT) C-Reactive Protein 222.8(H) <10.0 mg/L 01/13/2023 20:43 EDT [facility] Blood VENOUS BLOOD / Unknown Venipuncture / Unknown 01/13/2023 19:41 EDT 01/13/2023 20:09 EDT Asad Perez PA-C CHEMISTRY & BLOOD GA S ORDERABLES Performing Organization Address [facility] de Phone Number [facility] [address] [place] [address] * PROCALCITONIN (01/13/2023 19:41 EDT) Procalcitonin 0.08 See Note ng/mL 01/13/2023 20:50 EDT [facility] Comment: NOTE: Reference Range: <0.5 ng/mL - Low risk of severe sepsis >2.0 ng/mL - High risk of severe sepsis Blood VENOUS BLOOD / Unknown Venipuncture / Unknown 01/13/2023 19:41 EDT 01/13/2023 20:09 EDT Asad Perez PA-C CHEMISTRY & BLOOD GA S ORDERABLES Performing Organization Address [facility] Phone Number [facility] [address] [place] [address] * (ABNORMAL) BLOOD GASES, VENOUS (01/13/2023 16:59 EDT) pH, Venous 7.41 7.31 - 7.41 01/13/2023 17:00 EDT [facility] pCO2, Venous 44 41 - 51 mmHg 01/13/2023 17:00 EDT [facility] RESPIRATORY THERAPY pO2, Venous 38 30 - 50 mmHg 01/13/2023 17:00 EDT [facility]ER[facility] tCO2, Venous 29(H) 22 - 28 mmol/L 01/13/2023 17:00 EDT [facility] O2 Saturation, Venous 68 60 - 85 % 01/13/2023 17:00 EDT [facility] Blood VENOUS BLOOD / Unknown Venipuncture / Unknown 01/13/2023 16:59 EDT 01/13/2023 16:59 EDT Erickson Mott CHEMISTRY & BLOOD GA S ORDERABLES [facility] * (ABNORMAL) POCT URINE DIPSTICK, VISUAL READ (01/13/2023 14:53 EDT) Color, UA Yellow Clarity, UA Clear Glucose, UA Negative . mg/dL Bilirubin, UA Negative Negative Ketones, UA Negative . mg/dL Spec Grav, UA 1.010 1.005 - 1.030 Blood, UA 2+(A) Negative pH, UA 6.0 4.6 - 8.0 Protein, UA 2+(A) . mg/dL Urobilinogen, UA 2.0(A) 0.2 - 1.0 E.U./dL Nitrite, UA Negative . Leuk Esterase Trace(A) Negative Comment Urine URINE SPECIMEN COLLECTION, CLEAN CATCH / Unknown 01/13/2023 14:53 EDT Peter Alston MD POINT OF CARE TEST O RDERABLES * (ABNORMAL) BACTERIAL CULTURE, URINE (01/13/2023 14:52 EDT) [facility] Organism ID Greater than 100,000 CFU/ml Staphylococcus coagulase negative(A) VITEK SUSCEPTIBILITY 01/15/2023 9:26 EDT [facility] Comment: Sensitivity not performed on coagulase negative staph Isolate, ??Please contact Lab within 7 days for additional testing. Less than 10,000 CFU/ml Usual urogenital lever. Urine URINE SPECIMEN COLLECTION, CLEAN CATCH / Unknown Urine Collect / Unknown 01/13/2023 14:52 EDT 01/13/2023 15:22 EDT Peter Alston MD MICROBIOLOGY - [facility] ORDERABLES [facility] [address] [place] [address] * (ABNORMAL) UA SEDIMENT (CULTURE IF POS) (01/13/2023 14:52 EDT) Pathologist [facility] Urine RBC Count, Manual 3 - 10(A) 0 - 2, None Seen Cells/HPF 01/13/2023 15:22 [facility] Urine WBC Count 11 - 50(A) 0 - 3, None Seen Cells/HPF 01/13/2023 15:22 [facility] Urine Squamous Count, Manual Few(A) None Seen Cells/HPF 01/13/2023 15:22 [facility] Urine Bacteria Count, Manual Few(A) None Seen Bacteria/H PF 01/13/2023 15:22 [facility] Urine URINE SPECIMEN COLLECTION, CLEAN CATCH / Unknown Urine Collect / Unknown 01/13/2023 14:52 EDT 01/13/2023 14:55 [facility] - 01/13/2023 15:22 T Urine Sediment Analysis results are unreliable on urines that are unrefrigerated for >2 hrs or refrigerated >8 hrs. A Urine Culture test has been reflexively ordered based on result criteria from the Urine Sediment Analysis. Peter Alston MD URINALYSIS ORDERABLE S [facility] [address] [place] [address] * (ABNORMAL) UA WITH REFLEX SEDIMENT (CULTURE IF POS) (01/13/2023 14:52 EDT) Pathologist [facility] Color UA Yellow Colorless to Dark Yellow 01/13/2023 15:22 [facility] Clarity UA Hazy(A) Clear 01/13/2023 15:22 [facility] Glucose UA Negative Negative mg/dL 01/13/2023 15:22 [facility] Bilirubin UA 1+(A) Negative 01/13/2023 15:22 [facility] Ketones UA Negative Negative 01/13/2023 15:22 [facility] Specific [place], Urine 1.010 1.001 - 1.035 01/13/2023 15:22 [facility] Blood UA 1+(A) Negative 01/13/2023 15:22 [facility] pH, UA 6.5 4.6 - 8.0 01/13/2023 15:22 EDT [facility] Protein UA 1+(A) Negative 01/13/2023 15:22 EDT [facility] Urobilinogen UA 2.0(A) 0.2 , 1.0, Normal mg/dL 01/13/2023 15:22 EDT [facility] Nitrite UA Negative Negative 01/13/2023 15:22 EDT [facility] Leukocyte Esterase UA Trace(A) Negative 01/13/2023 15:22 EDT [facility] Urine URINE SPECIMEN COLLECTION, CLEAN CATCH / Unknown Urine Collect / Unknown 01/13/2023 14:52 EDT 01/13/2023 14:55 EDT Peter Alston MD URINALYSIS ORDERABLE S Performing Organization Address City/State/[facility] Co de Phone Number [facility] [address] [place] [address] * CT ABDOMEN PELVIS W CONTRAST (01/13/2023 12:06 EDT) Anatomical Region Laterality Modality Body, Abdomen, Pelvis, Abdomen and Pelvis Computed Tomography 01/13/2023 12:4 3 EDT Impressions 01/13/2023 12:43 EDT 1. Left pleural effusion and left lower lobe atelectasis/consolidation. 2. Incompletely healed fracture deformities of bilateral ribs and lumbar transverse processes as well as the left sacral wing as detailed above. 3. 2 large communicating subcapsular low-density collections consistent with resolving hematomas. No active extravasation identified. 4. Cholelithiasis. 5. Bilateral renal cysts. 6. Numerous urinary bladder calculi. [id number] Narrative 01/13/2023 12:43 EDT INDICATION: recent spleen lac with hemoperitoneum, now with altered mental status and leukocytosis, ?intraabdominal infection; recent spleen lac with hemoperitoneum, now with altered mental status and leukocytosis, ?intraabdominal infection;. COMPARISON: None.. TECHNIQUE: CT scan of the abdomen and pelvis was performed with nonionic IV contrast. 100 mL of Omnipaque 350 was administered intravenously. Axial images and multiplanar reformations were reviewed. FINDINGS: Lower chest: Left pleural effusion and left lower lobe atelectasis/consolidation. Liver: Normal. No hepatic mass or duct dilatation. Gallbladder: Multiple stones within the gallbladder. No cholecystitis. Normal caliber common bile duct. Pancreas: Normal. No mass or duct dilatation. Spleen: 2 subcapsular low-density collections which communicate, each measuring 4.5 cm x 3.3 cm x 4.4 cm and 7.3 cm x 4.6 cm x 7.0 cm, consistent with resolving subcapsular hematomas. No active extravasation. Adrenal glands: Normal adrenal glands. Kidneys and ureters: Multiple simple renal cysts bilaterally with 2 dominant left renal cysts measuring 8.9 cm and 8.3 cm. No renal stone or hydronephrosis. Urinary bladder: Multiple calcified stones within the urinary bladder. Reproductive: The prostate and seminal vesicles are unremarkable. Gastrointestinal: The stomach, small bowel and colon are normal. No enteritis, colitis or diverticulitis. No bowel obstruction. Appendix: No evidence of appendicitis. Peritoneal cavity: No free intraperitoneal fluid or free air. Lymph nodes: No pathologically enlarged lymph nodes. Vessels: Moderate atherosclerosis of the abdominal aorta and branch vessels. No aneurysm. Embolism coils within the splenic artery. Abdominal wall: Unremarkable. No hernia or mass. Musculoskeletal: Incompletely healed rib fracture deformities bilaterally. No acute fracture healing fracture deformities of the right and left sixth, seventh, eighth ribs and left ninth and 10th ribs. Incompletely healed fractures of the right third and fourth transverse processes and left fifth transverse process. Incompletely healed nondisplaced fracture of the left sacral wing. Procedure Note Carlos Bradley MD - 01/13/2023 INDICATION: recent spleen lac with hemoperitoneum, now with altered mentalstatus and leukocytosis, ?intraabdominal infection; recent spleen lac withhemoperitoneum, now with altered mental status and leukocytosis,?intraabdominal infection;. COMPARISON: None.. TECHNIQUE: CT scan of the abdomen and pelvis was performed with nonionicIV contrast. 100 mL of Omnipaque 350 was administered intravenously. Axialimages and multiplanar reformations were reviewed. FINDINGS: Lower chest: Left pleural effusion and left lower lobeatelectasis/consolidation. Liver: Normal. No hepatic mass or duct dilatation. Gallbladder: Multiple stones within the gallbladder. No cholecystitis.Normal caliber common bile duct. Pancreas: Normal. No mass or duct dilatation. Spleen: 2 subcapsular low-density collections which communicate, eachmeasuring 4.5 cm x 3.3 cm x 4.4 cm and 7.3 cm x 4.6 cm x 7.0 cm,consistent with resolving subcapsular hematomas. No activeextravasation. Adrenal glands: Normal adrenal glands. Kidneys and ureters: Multiple simple renal cysts bilaterally with 2dominant left renal cysts measuring 8.9 cm and 8.3 cm. No renal stone orhydronephrosis. Urinary bladder: Multiple calcified stones within the urinary bladder. Reproductive: The prostate and seminal vesicles are unremarkable. Gastrointestinal: The stomach, small bowel and colon are normal. Noenteritis, colitis or diverticulitis. No bowel obstruction. Appendix: No evidence of appendicitis. Peritoneal cavity: No free intraperitoneal fluid or free air. Lymph nodes: No pathologically enlarged lymph nodes. Vessels: Moderate atherosclerosis of the abdominal aorta and branchvessels. No aneurysm. Embolism coils within the splenic artery. Abdominal wall: Unremarkable. No hernia or mass. Musculoskeletal: Incompletely healed rib fracture deformities bilaterally.No acute fracture healing fracture deformities of the right and leftsixth, seventh, eighth ribs and left ninth and 10th ribs. Incompletelyhealed fractures of the right third and fourth transverse processes andleft fifth transverse process. Incompletely healed nondisplaced fractureof the left sacral wing. IMPRESSION 1. Left pleural effusion and left lower lobe atelectasis/consolidation. 2. Incompletely healed fracture deformities of bilateral ribs and lumbartransverse processes as well as the left sacral wing as detailed above. 3. 2 large communicating subcapsular low-density collections consistentwith resolving hematomas. No active extravasation identified. 4. Cholelithiasis. 5. Bilateral renal cysts. 6. Numerous urinary bladder calculi. [id number] Peter Alston MD [place] CT ORDERABLES * CT CERVICAL SPINE WO CONTRAST (01/13/2023 11:22 EDT) Anatomical Region Laterality Modality Computed Tomogra phy 01/13/2023 11:4 1 EDT Impressions 01/13/2023 11:41 EDT 1. Mild acute anterior wedge fracture deformities of the superior endplates of T1 and T2 and mild superior endplate compression fracture deformity of T3. No significant spinal stenosis or subluxation is identified at these levels. 2. Degenerative spondylosis of the cervical spine. I personally communicated these findings to Yg Kang MD on 01/13/2023 at 11:40 AM. [id number] Narrative 01/13/2023 11:41 EDT INDICATION: recent fall, generalized weakness; recent fall, generalized weakness;. COMPARISON: None. TECHNIQUE: Noncontrast CT scan of the cervical spine was performed. Axial images and multiplanar reformations were reviewed. FINDINGS: There are acute anterior wedge fracture deformities of the superior endplates of T1 and T2 with minimal posterior bulge of the posterior cortex at both levels. There is a mild superior endplate compression deformity of T3 without retropulsed bony fragment. No severe bony spinal stenosis is present. No subluxation at these levels is present. Degenerative disc disease and facet arthrosis is present throughout the cervical spine. There is minimal retrolisthesis of C4. The facet joints are intact. The prevertebral soft tissues are normal. The upper airway is patent. There is severe paraseptal and centrilobular emphysema within the lung apices. Procedure Note Carlos Bradley MD - 01/13/2023 INDICATION: recent fall, generalized weakness; recent fall, generalizedweakness;. COMPARISON: None. TECHNIQUE: Noncontrast CT scan of the cervical spine was performed. Axialimages and multiplanar reformations were reviewed. FINDINGS: There are acute anterior wedge fracture deformities of the superiorendplates of T1 and T2 with minimal posterior bulge of the posteriorcortex at both levels. There is a mild superior endplate compressiondeformity of T3 without retropulsed bony fragment. No severe bony spinalstenosis is present. No subluxation at these levels is present. Degenerative disc disease and facet arthrosis is present throughout thecervical spine. There is minimal retrolisthesis of C4. The facet jointsare intact. The prevertebral soft tissues are normal. The upper airway is patent. There is severe paraseptal and centrilobular emphysema within the lungapices. IMPRESSION 1. Mild acute anterior wedge fracture deformities of the superiorendplates of T1 and T2 and mild superior endplate compression fracturedeformity of T3. No significant spinal stenosis or subluxation isidentified at these levels. 2. Degenerative spondylosis of the cervical spine. I personally communicated these findings to Yg Kang MD on 01/13/2023t 11:40 AM. [id number] Peter Alston MD IMG CT ORDERABLES * CT HEAD WO CONTRAST (01/13/2023 11:22 EDT) Anatomical Region Laterality Modality Head Computed Tomogra phy 01/13/2023 11:3 3 EDT Impressions 01/13/2023 11:33 EDT No acute abnormality. [id number] Narrative 01/13/2023 11:33 EDT INDICATION: recent fall, altered mental status; Mental status change, unknown cause; recent fall, altered mental status;. COMPARISON: None. TECHNIQUE: Noncontrast CT scan of the head was performed. Axial images and multiplanar reformations were reviewed. FINDINGS: Brain: Global cerebral volume loss is consistent with patient's age. Decreased attenuation within the white matter tracts of both cerebral hemispheres is nonspecific but typically seen with small vessel disease/chronic white matter ischemic changes of aging. No intracranial hemorrhage or mass effect. No abnormal intra-axial or extra-axial fluid collections. Ventricles: Mild ventriculomegaly consistent with global cerebral volume loss. Paranasal Sinuses and Mastoids: The paranasal sinuses and mastoid air unremarkable as visualized. Orbits: Bilateral scleral bands. Otherwise unremarkable. Bones: Unremarkable. No fracture or suspicious bone lesions. Soft tissues: The scalp and visualized facial soft tissues have normal appearances. Procedure Note Carlos Bradley MD - 01/13/2023 INDICATION: recent fall, altered mental status; Mental status change,unknown cause; recent fall, altered mental status;. COMPARISON: None. TECHNIQUE: Noncontrast CT scan of the head was performed. Axial images andmultiplanar reformations were reviewed. FINDINGS: Brain: Global cerebral volume loss is consistent with patient's age.Decreased attenuation within the white matter tracts of both cerebralhemispheres is nonspecific but typically seen with small vesseldisease/chronic white matter ischemic changes of aging. No intracranialhemorrhage or mass effect. No abnormal intra-axial or extra-axial fluidcollections. Ventricles: Mild ventriculomegaly consistent with global cerebral volumeloss. Paranasal Sinuses and Mastoids: The paranasal sinuses and mastoid airunremarkable as visualized. Orbits: Bilateral scleral bands. Otherwise unremarkable. Bones: Unremarkable. No fracture or suspicious bone lesions. Soft tissues: The scalp and visualized facial soft tissues have normalappearances. IMPRESSION No acute abnormality. [id number] Peter Alston MD IMG CT ORDERABLES * XR CHEST PORTABLE 1 VIEW (01/13/2023 11:15 EDT) Anatomical Region Laterality Modality Computed Radiogr aphy 01/13/2023 11:2 9 EDT Impressions 01/13/2023 11:29 EDT 1. Small left pleural effusion with patchy left base opacity which may reflect infiltrate or atelectasis. A follow-up chest x-ray in 2-3 months is recommended to assess for improvement. 2. Numerous lateral left chest wall incompletely healed but somewhat chronic rib fractures. [id number] Narrative 01/13/2023 11:29 EDT XR CHEST PORTABLE 1 VIEW ??01/13/2023 11:05 AM CLINICAL HISTORY/COMMENTS: sob, cough AMS; COMPARISON: None. TECHNIQUE: Single portable AP view of the chest. FINDINGS: Lines/tubes/devices: ??Lines and tubes in stable satisfactory position. Lungs: Patchy opacity overlies the left base. The right lung is grossly clear. Pleura: There is a small left pleural effusion. Cardiac and mediastinal contours: Normal. Soft tissues and extrathoracic findings: ??Normal. Bones: Right clavicle hardware. Numerous chronic incompletely healed lateral left chest rib fractures are seen. Procedure Note Rosendo Fish MD - 01/13/2023 XR CHEST PORTABLE 1 VIEW 01/13/2023 11:05 AM CLINICAL HISTORY/COMMENTS: sob, cough AMS; COMPARISON: None. TECHNIQUE: Single portable AP view of the chest. FINDINGS: Lines/tubes/devices: Lines and tubes in stable satisfactory position. Lungs: Patchy opacity overlies the left base. The right lung is grosslyclear. Pleura: There is a small left pleural effusion. Cardiac and mediastinal contours: Normal. Soft tissues and extrathoracic findings: Normal. Bones: Right clavicle hardware. Numerous chronic incompletely healedlateral left chest rib fractures are seen. IMPRESSION 1. Small left pleural effusion with patchy left base opacity which mayreflect infiltrate or atelectasis. A follow-up chest x-ray in 2-3 monthsis recommended to assess for improvement. 2. Numerous lateral left chest wall incompletely healed but somewhatchronic rib fractures. [id number] Erickson Mott IMG DIAGNOSTIC IMAGI NG ORDERABLES * BACTERIAL CULTURE, BLOOD (01/13/2023 10:30 EDT) Organism ID No Growth at 5 days VITEK SUSCEPTIBILITY 01/18/2023 10:46 EDT [facility] Blood VENOUS BLOOD / Unknown Venipuncture / Unknown 01/13/2023 10:30 EDT 01/13/2023 10:32 EDT Peter Alston MD MICROBIOLOGY - GENER AL ORDERABLES Performing Organization Address City/[facility]/ZIP Co de Phone Number [facility] [address] [place] [address] * LACTIC ACID WITH REFLEX - USE FOR INITIAL SEPSIS EVALUATION (01/13/2023 10:30 EDT) Lactic Acid 1.1 <=2.0 mmol/L 01/13/2023 10:50 EDT [facility] Blood VENOUS BLOOD / Unknown Venipuncture / Unknown 01/13/2023 10:30 EDT 01/13/2023 10:33 EDT Peter Alston MD CHEMISTRY & BLOOD GA S ORDERABLES Performing Organization Address City/[facility]/ZIP Co de Phone Number [facility] [address] [place] [address] * BACTERIAL CULTURE, BLOOD (01/13/2023 10:17 EDT) Organism ID No Growth at 5 days VITEK SUSCEPTIBILITY 01/18/2023 10:31 EDT [facility] Blood VENOUS BLOOD / Unknown Venipuncture / Unknown 01/13/2023 10:17 EDT 01/13/2023 10:24 EDT Peter Alston MD MICROBIOLOGY - GENER AL ORDERABLES Performing Organization Address [facility] Co de Phone Number [facility] [address] [place] [address] * CK (01/13/2023 10:02 EDT) CK 85 <=250 U/L 01/13/2023 16:27 EDT [facility] Blood VENOUS BLOOD / Unknown Venipuncture / Unknown 01/13/2023 10:02 EDT 01/13/2023 10:08 EDT Erickson Mott CHEMISTRY & BLOOD GA S ORDERABLES Performing Organization Address [facility] Co de Phone Number [facility] [address] [place] [address] * HN LAB CBC SMEAR REVIEW (01/13/2023 10:02 EDT) Differential Comment Slide was examined by a technologist to verify the WBC and/or platelet count. 01/13/2023 10:33 EDT [facility] Blood VENOUS BLOOD / Unknown Venipuncture / Unknown 01/13/2023 10:02 EDT 01/13/2023 10:08 EDT Peter Alston MD HEMATOLOGY & PF4 ORD ERABLES Performing Organization Address [facility] Co de Phone Number [facility] [address] [place] [address] * MAGNESIUM (01/13/2023 10:02 EDT) Magnesium 1.8 1.7 - 2.8 mg/dL 01/13/2023 10:31 EDT [facility] Blood VENOUS BLOOD / Unknown Venipuncture / Unknown 01/13/2023 10:02 EDT 01/13/2023 10:08 EDT Peter Alston MD CHEMISTRY & BLOOD GA S ORDERABLES [facility] [address] [place] [address] * (ABNORMAL) COMPREHENSIVE METABOLIC PANEL (CMP) (01/13/2023 10:02 ED) Sodium 136 136 - 145 mmol/L 01/13/2023 10:31 [facility] Potassium 4.3 3.5 - 5.0 mmol/L 01/13/2023 10:31 [facility] Chloride 97 96 - 110 mmol/L 01/13/2023 10:31 [facility] CO2 Total 27 22 - 32 mmol/L 01/13/2023 10:31 [facility] Glucose 129(H) 70 - 100 mg/dl 01/13/2023 10:31 [facility] BUN 19 10 - 26 mg/dL 01/13/2023 10:31 [facility] Creatinine 0.75 0.66 - 1.25 mg/dL 01/13/2023 10:31 [facility] eGFR 94 >60 mL/min/1.7 3m2 01/13/2023 10:31 [facility] Total Protein 8.0 6.3 - 8.2 g/dL 01/13/2023 10:31 [facility] Albumin 3.6 3.4 - 4.9 g/dL 01/13/2023 10:31 [facility] Alkaline Phosphatase 142(H) 38 - 126 U/L 01/13/2023 10:31 [facility] AST 50(H) 15 - 46 U/L 01/13/2023 10:31 [facility] ALT 37 <50 U/L 01/13/2023 10:31 [facility] Bilirubin, Total 1.0 <1.4 mg/dL 01/14/20 10:31 [facility] Calcium 9.2 8.5 - 10.5 mg/dL 01/13/2023 10:31 [facility] Albumin/Globulin Ratio 0.8(L) 1.0 - 2.5 g/dL 01/13/2023 10:31 [facility] Anion Gap 12 5 - 14 mmol/L 01/13/2023 10:31 [facility] Blood VENOUS BLOOD / Unknown Venipuncture / Unknown 01/13/2023 10:02 EDT 01/13/2023 10:08 EDT Peter Alston MD CHEMISTRY & BLOOD GA S ORDERABLES [facility] [address] [place] [address] * (ABNORMAL) COMPLETE BLOOD COUNT AND DIFFERENTIAL (01/13/2023 10:02 EDT) WBC 12.97(H) 4.00 - 10.40 K/cmm 01/13/2023 10:33 [facility] RBC 4.42 4.36 - 5.78 M/cmm 01/13/2023 10:33 [facility] Hemoglobin 13.2(L) 13.8 - 17.3 g/dL 01/13/2023 10:33 [facility] HCT 40.5 39.5 - 50.2 % 01/13/2023 10:33 [facility] MCV 92 81 - 95 fL 01/13/2023 10:33 [facility] MCH 29.9 27.6 - 33.0 pg 01/13/2023 10:33 [facility] MCHC 32.6(L) 32.8 - 36.4 g/dL 01/13/2023 10:33 [facility] RDW-CV 16.6(H) <14.2 % 01/13/2023 10:33 [facility] RDW-SD 56.5(H) <46.0 fl 01/13/2023 10:33 [facility] PLT 314 141 - 377 K/cmm 01/13/2023 10:33 [facility] MPV 10.7 9.5 - 12.7 fL 01/13/2023 10:33 [facility] % Neutrophils 78.6 % 01/13/2023 10:33 [facility] % Lymphocytes 6.0 % 01/13/2023 10:33 [facility] % Monocytes 13.0 % 01/13/2023 10:33 [facility] % Eosinophils 0.9 % 01/13/2023 10:33 [facility] % Basophils 0.6 % 01/13/2023 10:33 [facility] % Immature Grans 0.9 % 01/14/20 10:33 [facility] Absolute Neutrophils 10.18(H) 2.20 - 8.85 K/cmm 01/13/2023 10:33 [facility] Absolute Lymphocytes 0.78(L) 1.09 - 3.30 K/cmm 01/13/2023 10:33 [facility] Absolute Monocytes 1.69(H) 0.10 - 0.80 K/cmm 01/13/2023 10:33 [facility] Absolute Eosinophils 0.12 0.03 - 0.61 K/cmm 01/13/2023 10:33 [facility] ABS Basophils 0.08 0.01 - 0.11 K/cmm 01/13/2023 10:33 [facility] Absolute Immature Grans 0.12(H) 0.00 - 0.06 K/cmm 01/13/2023 10:33 [facility] Type of Differential: Auto 01/13/2023 10:33 [facility] Blood VENOUS BLOOD / Unknown Venipuncture / Unknown 01/13/2023 10:02 EDT 01/13/2023 10:08 EDT Peter Alston MD PACKAGES & DNA PROBE ORDERABLES [facility] [address] [place] [address] * EKG 12-LEAD (01/13/2023 10:00 EDT) 01/13/2023 10:0 0 EDT Narrative [facility] - 01/13/2023 13:10 EDT ? [facility] ? Test Date: ?2023-01-13 Pat Name: ? KLEVER GONGORAMAHAMED ? Department: ? Room: ? C04 Gender: ? Male ? 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 HR : ?1945 ? Requested By: ZHENG LESLIE Order Number: [id number] ? Reading MD: ?? TC BARBER MD ? Measurements Intervals ?[place] ? Rate: ? 91 ? P: ?83 RI: ? 154 ?QRS: ?40 QRSD: ? 90 ? T: ?65 QT: ? 346 ? QTc: ?425 ? Interpretive Statements Normal sinus rhythm Low voltage QRS No previous ECG available for comparison I reviewed the tracing and have either agreed or edited the findings in this report. Electronically Signed On 01-13-2023 13:10:49 EDT by TC BARBER MD. Procedure Note Tc Barber MD - 01/13/2023 [facility] Test Date: 2023-01-13 Pat Name: KLEVER GALLEGOS Department: Room: C04 Gender: Male Pantry Goods Maker: HR : 1945 Requested By: ZHENG LESLIE Order Number: [id number] Reading MD: TC BARBER MD Measurements Intervals [place] Rate: 91 P: 83 RI: 154 QRS: 40 QRSD: 90 T: 65 QT: 346 QTc: 425 Interpretive Statements Normal sinus rhythm Low voltage QRS No previous ECG available for comparison I reviewed the tracing and have either agreed or edited the findings inthis report. Electronically Signed On 01-13-2023 13:10:49 EDT by TC GRULLON. Peter Alston MD CARDIAC ECG ORDERABL ES [facility] documented in this encounter Visit Diagnoses Diagnosis Pneumonia- Primary Pneumonia, organism unspecified Pneumonia Pneumonia, organism unspecified Pneumonia of left lower lobe due to infectious organism Sepsis without acute organ dysfunction, due to unspecified organism (HCC-CMS) Pneumonia due to infectious organism, unspecified laterality, unspecified part of lung Sepsis ([facility]) Sepsis without acute organ dysfunction ([facility]) documented in this encounter Admitting Diagnoses Diagnosis Sepsis ([facility]) documented in this encounter Administered Medications Inactive Administered Medications - up to 3 most recent administrations Medication Order MAR Action Action Date Dose Rate Site acetaminophen (TYLENOL) tablet 975 mg 975 mg (rounded from 1,000 mg), oral, EVERY 8 HOURS, First dose on Fri01/13/23 at 1845, Until Discontinued, Routine Given 01/17/2023 8:59 EDT 975 mg Given 01/16/2023 15:01 EDT 975 mg Given 01/16/2023 9:26 EDT 975 mg aspirin EC tablet 81 mg 81 mg, oral, DAILY, First dose on Fri01/14/23 at 0900, Until Discontinued, Routine Given 01/17/2023 8:56 EDT 81 mg Given 01/16/2023 9:26 EDT 81 mg Given 01/15/2023 8:51 EDT 81 mg calcium-vitamin D (CALTRATE D) 600 mg (1,500 mg)-400 unit per tablet 2 Tablet 2 Tablet, oral, DAILY, First dose on Fri01/14/23 at 0900, Until Discontinued, Routine Given 01/17/2023 8:56 EDT 2 Tablets Given 01/16/2023 9:26 EDT 2 Tablets Given 01/15/2023 8:51 EDT 2 Tablets cefepime (MAXIPIME) 2,000 mg in sodium chloride (NS MBP) 50 mL IVPB 2,000 mg, intravenous, Administer over 30 Minutes, NOW X1, 1 dose, On Fri01/13/23 at 1630, Type of Therapy: Empiric, Suspected Indication (Select all that apply): Hospital acquired pneumonia, Routine Given 01/13/2023 16:35 EDT 2,000 mg cefepime (MAXIPIME) 2,000 mg in sodium chloride (NS MBP) 50 mL IVPB 2,000 mg, intravenous, Administer over 30 Minutes, EVERY 8 HOURS, 6 doses, First dose on Fri01/14/23 at 0000, Last dose on Fri01/15/23 at 1600, Type of Therapy: Empiric, Suspected Indication (Select all that apply): Concern for Pseudomonas pneumonia ? HAP, Routine Given 01/15/2023 15:46 EDT 2,000 mg Given 01/15/2023 8:50 EDT 2,000 mg Given 01/14/2023 23:37 EDT 2,000 mg cefpodoxime (VANTIN) tablet 200 mg 200 mg, oral, EVERY 12 HOURS, 7 doses, First dose on Fri01/13/23 at 2100, Last dose on Felicitas 01/16/23 at 2100, Routine Given 01/13/2023 20:09 EDT 200 mg cefpodoxime (VANTIN) tablet 200 mg 200 mg, oral, EVERY 12 HOURS, 9 doses, First dose on Fri01/15/23 at 2100, Last dose on Fri01/19/23 at 2100, Routine Given 01/17/2023 8:56 EDT 200 mg Given 01/16/2023 20:53 EDT 200 mg Given 01/16/2023 9:26 EDT 200 mg enoxaparin (LOVENOX) injection 40 mg 40 mg, subcutaneous, DAILY, First dose on Fri01/14/23 at 0800, Until Discontinued, Routine Given 01/17/2023 8:56 EDT 40 mg Given 01/16/2023 9:26 EDT 40 mg Given 01/15/2023 8:51 EDT 40 mg iohexoL (OMNIPAQUE 350) solution 100 mL 100 mL, intravenous, Once in imaging, 1 dose, Starting on Fri01/13/23 at 1142, Until Fri01/13/23 at 1206, Routine Given 01/13/2023 12:06 EDT 100 mL lactated ringers (LR) infusion at 50 mL/hr, intravenous, CONTINUOUS, Starting on Fri01/13/23 at 2100, Until Fri01/13/23 at 2118, Routine New Bag 01/13/2023 20:41 EDT 50 mL/hr lactated ringers BOLUS 1,000 mL 1,000 mL, intravenous, NOW X1, 1 dose, On Fri01/13/23 at 1100, STAT New Bag 01/13/2023 10:46 EDT 1,000 mL lactated ringers BOLUS 500 mL 500 mL, intravenous, NOW X1, 1 dose, On Fri01/13/23 at 1930, Routine New Bag 01/13/2023 19:39 EDT 500 mL lactated ringers BOLUS 500 mL 500 mL, intravenous, NOW X1, 1 dose, On Fri01/13/23 at 2215, Routine New Bag 01/13/2023 21:47 EDT 500 mL primidone (MYSOLINE) tablet 250 mg 250 mg, oral, 3 TIMES DAILY, First dose on Fri01/13/23 at 2100, Until Discontinued, Routine Given 01/17/2023 8:56 EDT 250 mg Given 01/16/2023 20:53 EDT 250 mg Given 01/16/2023 14:58 EDT 250 mg ramelteon (ROZEREM) tablet 8 mg 8 mg, oral, AT BEDTIME PRN, Starting on Fri01/13/23 at 1815, Until Fri01/17/23 at 1643, Sleep, Routine Given 01/15/2023 20:25 EDT 8 mg Given 01/14/2023 21:04 EDT 8 mg sodium chloride 0.9 % (NS) infusion at 75 mL/hr, intravenous, CONTINUOUS, Starting on Fri01/14/23 at 1630, Until Fri01/15/23 at 1201, Routine New Bag 01/15/2023 11:32 EDT 75 mL/hr New Bag 01/14/2023 17:54 EDT 75 mL/hr sodium chloride 0.9 % BOLUS 500 mL 500 mL, intravenous, NOW X1, 1 dose, On Fri01/14/23 at 1445, Routine New Bag 01/14/2023 14:39 EDT 500 mL sodium chloride 0.9 % BOLUS 500 mL 500 mL, intravenous, NOW X1, 1 dose, On Fri01/14/23 at 1630, Routine New Bag 01/14/2023 16:42 EDT 500 mL documented in this encounter Discontinued Medications Medication Sig Discontinue Reason Start Date End Da te methocarbamoL (ROBAXIN) 750 mg tablet Take 1 Tablet by mouth 3 times daily. 01/17/2023 propRANolol (INDERAL) 20 mg tablet Take 1 Tablet by mouth 3 times daily. 01/17/2023 documented as of this encounter Historical Medications * This list may reflect changes made after this encounter. Medication Sig Dispensed Refills Start Date End Date primidone (MYSOLINE) 50 mg tablet Take 1 Tablet by mouth 3 times daily. Give with 250mg tab to equal total dose of 300mg 10/21/2022 primidone (MYSOLINE) 250 mg tablet Take 1 Tablet by mouth 3 times daily. Give with 50mg tab to equal total dose of 300mg 10/21/2022 Cholecalciferol, Vitamin D3, 50 mcg capsule Take 1 Capsule by mouth daily. aspirin 81 mg EC tablet Take 1 Tablet by mouth daily. acetaminophen (TYLENOL) 325 mg tablet Take 2 Tablets by mouth every 6 hours as needed for Pain. 12/25/2022 propRANolol (INDERAL) 20 mg tablet Take 1 Tablet by mouth 3 times daily. 01/17/2023 methocarbamoL (ROBAXIN) 750 mg tablet Take 1 Tablet by mouth 3 times daily. 01/17/2023 added in this encounter Active and Recently Administered Medications Times are shown in EDT. Scheduled Medication Order 01/15/2023 01/16/2023 01/17/2023 acetaminophen (TYLENOL) tablet 975 mg 975 mg (rounded from 1,000 mg), oral, EVERY 8 HOURS, First dose on Fri01/13/23 at 1845, Until Discontinued, Routine 0851 (Given - Provider: Luda Lopez RN)1659 (Given - Provider: Luda Lopez RN)2351 (Given - Provider: Natalie Solis RN) 0926 (Given - Provider: Elvi Key, STELLA)1501 (Given - Provider: Elvi Key RN)2322 (Not Given - Provider: Natalie Solis RN - Reason: Other - Comment: sleeping, held to promote rest. Pt denied pain during assessment previously.) 0859 (Given - Provider: Elvi Key RN)1600 (Canceled Entry - Provider: Batch Job User Admin - Comment: Automatically canceled at discontinue of medication order) aspirin EC tablet 81 mg 81 mg, oral, DAILY, First dose on Fri01/14/23 at 0900, Until Discontinued, Routine 0851 (Given - Provider: Luda Lopez RN) 0926 (Given - Provider: Elvi Key, STELLA) 0856 (Given - Provider: lEvi Key RN) calcium-vitamin D (CALTRATE D) 600 mg (1,500 mg)-400 unit per tablet 2 Tablet 2 Tablet, oral, DAILY, First dose on Fri01/14/23 at 0900, Until Discontinued, Routine 0851 (Given - Provider: Luda Lopez RN) 0926 (Given - Provider: Elvi Key RN) 0856 (Given - Provider: Elvi Key RN) cefepime (MAXIPIME) 2,000 mg in sodium chloride (NS MBP) 50 mL IVPB (COMPLETED) 2,000 mg, intravenous, Administer over 30 Minutes, EVERY 8 HOURS, 6 doses, First dose on Fri01/14/23 at 0000, Last dose on Fri01/15/23 at 1600, Type of Therapy: Empiric, Suspected Indication (Select all that apply): Concern for Pseudomonas pneumonia ? HAP, Routine 0850 (Given - Provider: Luda Lopez RN)1546 (Given - Provider: Luda Lopez RN) cefpodoxime (VANTIN) tablet 200 mg 200 mg, oral, EVERY 12 HOURS, 9 doses, First dose on Fri01/15/23 at 2100, Last dose on Fri01/19/23 at 2100, Routine 2024 (Given - Provider: Natalie Solis RN) 09 (Given - Provider: Elvi Key RN)2052 (Given - Provider: Natalie Solis RN) 0856 (Given - Provider: Elvi Key RN) enoxaparin (LOVENOX) injection 40 mg 40 mg, subcutaneous, DAILY, First dose on Fri01/14/23 at 0800, Until Discontinued, Routine 0851 (Given - Provider: Luda Lopez RN) 0926 (Given - Provider: Elvi Key RN) 0856 (Given - Provider: Elvi Key RN) primidone (MYSOLINE) tablet 250 mg 250 mg, oral, 3 TIMES DAILY, First dose on Fri01/13/23 at 2100, Until Discontinued, Routine 0850 (Given - Provider: Luda Lopez RN)1433 (Given - Provider: Luda Lopez RN)2024 (Given - Provider: Natalie Solis RN) 0926 (Given - Provider: Elvi Key RN)1458 (Given - Provider: Elvi Key RN)2052 (Given - Provider: Natalie Solis RN) 0856 (Given - Provider: Elvi Key RN)1400 (Canceled Entry - Provider: Batch Job User Admin - Comment: Automatically canceled at discontinue of medication order) Continuous Medication Order 01/15/2023 01/16/2023 01/17/2023 sodium chloride 0.9 % (NS) infusion (CANCELED) at 75 mL/hr, intravenous, CONTINUOUS, Starting on Fri01/14/23 at 1630, Until Fri01/15/23 at 1201, Routine 1132 (New Bag - Provider: Luda Lopez, RN) PRN Medication Order 01/15/2023 01/16/2023 01/17/2023 calcium carbonate (TUMS) tablet 500 mg (200 mg elemental calcium) 2 Tablet 2 Tablet, oral, EVERY 6 HOURS PRN, Starting on Fri01/13/23 at 1815, Until Fri01/17/23 at 1643, Indigestion, Routine lidocaine (PF) 10 mg/mL (1 %) injection 2 mg 2 mg, intradermal, PRN, 4 doses, Starting on Fri01/13/23 at 1815, Until Fri01/17/23 at 1643, peripheral intravenous catheter placement, Routine methocarbamoL (ROBAXIN) tablet 500 mg 500 mg, oral, EVERY 6 HOURS PRN, Starting on Fri01/13/23 at 1815, Until Fri01/17/23 at 1643, Pain, Other, Muscle cramps, Routine polyethylene glycol 3350 (MIRALAX) packet 17 g 17 g, oral, DAILY PRN, Starting on Fri01/13/23 at 1815, Until Fri01/17/23 at 1643, Constipation, Routine ramelteon (ROZEREM) tablet 8 mg 8 mg, oral, AT BEDTIME PRN, Starting on Fri01/13/23 at 1815, Until Fri01/17/23 at 1643, Sleep, Routine 2024 (Given - Provider: Natalie Solis RN) documented in this encounter Orders Medications Ordered That Juan ht Not Have Been Administered Count Last Ordered Date First Ordered Date azithromycin (ZITHROMAX) tablet 250 mg 1 calcium carbonate (TUMS) tab let 500 mg (200 mg elemental calcium) 2 Tablet 1 01/13/2023 cefepime (MAXIPIME) 2,000 mg in sodium chloride (NS MBP) 50 mL IVPB 2 01/13/2023 cefTRIAXone (ROCEPHIN) 1,000 mg in sodium chloride (NS MBP) 50 mL IVPB 1 01/13/2023 cholecalciferol (Vitamin D3) tablet 1,000 Units 1 01/13/2023 levoFLOXacin (LEVAQUIN) IVPB 750 mg 1 01/13 lidocaine (PF) 10 mg/mL (1 % ) injection 2 mg 1 01/13/2023 methocarbamoL (ROBAXIN) tablet 500 mg 1 09/2022 polyethylene glycol 3350 (PR RALAX) packet 17 g 1 01/13/2023 primidone (MYSOLINE) tablet 50 mg 1 023 propRANolol (INDERAL) tablet 10 mg 1 2022 propRANolol (INDERAL) tablet 20 mg 1 2022 vancomycin (VANCOCIN) 1,250 mg in sodium chloride (NS) 0.9 % 250 mL IVPB 1 01/13/2023 Diet Count Last Ordered Date First Orde red Date DISCHARGE DIET 2 01/17/2023 Nursing Count Last Ordered Date First Orde red Date ACTIVITY INSTRUCTIONS 2 01/17/2023 CALL HOSPITALIST FOR ADM[facility] 1 01/13/2023 Consult Count Last Ordered Date First Orde red Date CONSULT NUTRITION 1 01/13/2023 PT Count Last Ordered Date First Orde red Date PT EVALUATION AND TREAT 1 01/16/2023 HOUSE DECORATOR Count Last Ordered Date First Orde red Date HOUSE DECORATOR CLINICAL SWALLOW EVALUATION AND TREAT 1 01/13/2023 Admission Count Last Ordered Date First Orde red Date ADMIT TO INPATIENT 2 01/17/2023 Transfer Count Last Ordered Date First Orde red Date ED BED REQUEST 1 01/13/2023 Discharge Count Last Ordered Date First Orde red Date DISCHARGE PATIENT 1 01/17/2023 Legal Count Last Ordered Date First Orde red Date MISCELLANEOUS DISCHARGE INSTRUCTIONS 8 01/2023 documented in this encounter Care Teams Kennel Assistant Relationship Specialty Start Date End Date Peter Boone MD [facility] [place] [address] PCP - General 04/24/20 documented as of this encounter
--- OUTSIDE RECORDS SUMMARY | 2024-04-30 06:49 | XMS_ITS | Encounter Summary ---
Author Organization Counts Include [facility] Address [facility] [place] [address] Care Team Providers Care Truck Repair Service Estimator Name Role Phone Peter Boone MD Primary Care Provider [phone] Encounter Details Date Type Department Care Team (Late st Contact Info) Description 11/30/2022 4:20 PM EDT Ancillary Procedure Radiology Library [place] [address] Ford Bowie MD [facility] [place] [address] Social History Tobacco Use Types Packs/Day Years [...] STORAGE ONLY CT CHEST ABDOMEN PELVIS Routine 11/30/2022 4:11 PM EDT documented in this encounter Results * Film Library- Storage Only CT Chest Abdomen Pelvis (11/30/2022 4:11 PM EDT) Narrative [facility] - 11/30/2022 4:11 PM EDT This exam is auto-finalizing. It's purpose is for storage only. Ford Bowie MD IMG FILM LIBRARY ORD ERABLES [facility] [place], [place] documented in this encounter Visit Diagnoses Not on filedocumented in this encounter Care Teams Truck Repair Service Estimator Relationship Specialty Start Date End Date Peter Boone MD PCP - General Family Medicine 07/27/20 01/29/24 documented as of this encounter
--- OUTSIDE RECORDS SUMMARY | 2024-04-30 06:49 | XMS_ITS | Encounter Summary ---
Author Organization [facility]ly [facility] [place] [address] Care Team Providers Care Glass Loading Equipment Tender Name Role Phone Nabila Blanc BRITTANY Primary Care Provider [phone] Reason for Visit * Diagnostic Test (Routine) - Closed Specialty Diagnoses / Procedures Referred By Nicol carranza Referred To Contact Radiology Diagnoses Tongue mass Smoker Pharyngeal dysphagia Weight loss Procedures NM PET CT Standard Plus Head and Neck Fracisco Belle DO [address] [place] [address] [place] [address] Referral ID Status Reason Start Date Expiration Date V isits Requested Visits Authorized [id number] Closed Specialty Service Requested 06/05/2020 12/03/2021 1 1 Encounter Details Date Type Department Care Team (Late st Contact Info) Description 06/23/2020 2:48 PM EST - 06/23/2020 11:59 PM [facility] Hospital Encounter [place] [phone] Fracisco Belle DO [address] [place] [address] Discharge Disposition: Home Social History Tobacco Use [...] Tongue mass Smoker Pharyngeal dysphagia Weight loss POCT GLUCOSE Routine 06/23/2020 2:57 PM EST documented in this encounter Results * POCT Glucose (06/23/2020 2:57 PM EST) Glucose, POC 96 65 - 199 mg/dL [facility] Comment: Supplemental ranges: <140 mg/dL before meals <180 mg/dL all other times of the day Blood specimen (specimen) 06/23/2020 2:57 PM EST 06/23/2020 2:57 PM EST Fracisco Belle DO POINT OF CARE T EST ORDERABLES [facility] [place] [address] documented in this encounter Visit Diagnoses Not on filedocumented in this encounter Care Teams Glass Loading Equipment Tender Relationship Specialty Start Date End Date Nabila Blanc APRN PCP - General 12/25/11 07/26/20 documented as of this encounter
--- OUTSIDE RECORDS SUMMARY | 2024-04-30 06:49 | XMS_ITS | Encounter Summary ---
Author Organization [facility] Address [address] [place] [address] Care Team Providers Care Gas And Oil Checker Name Role Phone Peter Boone MD Primary Care Provider [phone] Encounter Details Date Type Department Care Team (Late st Contact Info) Description 03/26/2022 Lab Requisition [facility] Pathology & Laboratory Medicine - [facility] [address], [place] [id number] Outr Resulting Lab, Provider Social History Tobacco Use Types Packs/Day Years Used Date Smoking Tobacco: Never Assessed Interpersonal Safety Answer Date Record ed Physically Hurt Never 05/03/2020 Verbally Threaten Not on file 05/03/2020 Sex and Gender Information Value Date Recorded Sex Assigned at Not on file Gender Identity Not on file Sexual Orientation Not on file documented as of this encounter Plan of Treatment Not on file documented as of this encounter Procedures Procedure Name Priority Date/Time Associated Diagnosis Comments PSA TOTAL, DIAGNOSTIC Routine 03/25/2022 10:10 EDT documented in this encounter Results * PSA TOTAL, DIAGNOSTIC (03/25/2022 10:10 EDT) PSA 5.3 <=6.5 ng/mL 03/26/2022 18:08 EDT [facility] Blood VENOUS BLOOD / Unknown 03/25/2022 10:10 EDT 03/26/2022 16:46 EDT Narrative [facility] - 03/26/2022 18:08 EDT NOTE: Serum PSA concentration should not be interpreted as absolute evidence for the presence or absence of malignant disease. Assayed on Siemens ADVIA Centaur XPT using chemiluminescent technology.??Values obtained by using different assay methods cannot be used interchangeably. Provider Outr Resulting Lab CHEMISTRY & BLOOD GAS ORDERABLES [facility] [address] [place] [address] documented in this encounter Visit Diagnoses Not on filedocumented in this encounter Care Teams Gas And Oil Checker Relationship Specialty Start Date End Date Peter Boone MD [facility] [place] [address] PCP - General 04/24/20 documented as of this encounter
--- OUTSIDE RECORDS SUMMARY | 2024-04-30 06:49 | XMS_ITS | Encounter Summary ---
[place] [address] Care Team Providers Care Electrician Supervisor Name Role Phone Jordan Hudson MD Primary Care Provider + Encounter Details Date Type Department Care Team (Late st Contact Info) Description 01/15/2011 [place] [address] Bryce Pena MD [facility] [place] [address] Social History Tobacco Use Types Packs/Day Years Used Date Smoking Tobacco: Never Assessed Sex and Gender Information Value Date Recorded Sex Assigned at Not on file Gender Identity Not on file Sexual Orientation Not on file documented as of this encounter Plan of Treatment Not on file documented as of this encounter Visit Diagnoses Not on filedocumented in this encounter Care Teams Electrician Supervisor Relationship Specialty Start Date End Date Jordan Hudson MD [address] [place] [address] PCP - General 06/05/10 12/24/11 documented as of this encounter
--- OUTSIDE RECORDS SUMMARY | 2024-04-30 06:49 | XMS_ITS | Encounter Summary ---
Author [facility] Address [facility] [place] [address] Care Team Providers Care Med Care Manager Name Role Phone Nabila Blanc APRN Primary Care Provider [phone] Reason for Visit * Reason Comments Follow-up Encounter Details Date Type Department Care Team (Late st Contact Info) Description 06/24/2012 11:00 AM EST Follow-Up Dermatology at [facility] [address] [place] [address] Indy Bear MD [facility] [address] [place] [address] Actinic keratosis (Primary Dx); Seborrheic keratosis Discharge Disposition: Home Social History Tobacco [...] as of this encounter Progress Notes * Christina Dietz LPN - 06/24/2012 11:15 AM EST DERMATOLOGY ESTABLISHED PATIENT CLINIC NOTE Date of service: 06/24/2012 Klever Reynaldo Chelsie : 1945 Provider: Indy Bear MD Chief Complaint Patient presents with ??? Follow-up SKIN HISTORY: 12/2011 Skin, nasal dorsum, shave biopsy: Small fragments of squamous epithelium, suggestive of verrucous architecture (see Comment). This may be top of a wart; However, only a superficial portion of the lesion is present in the specimen. Base of the lesion is not seen, therefore a definite diagnosis cannot be warranted. Follow up is recommended with re-biopsy if there is persistent or recurrent lesion, or if clinically indicated. Multiple deeper levels have been examined. HPI Klever Holguin is a 66 y.o. year old male here today for follow up of above bx, states he has noticed no change. C/o still having scaly skin on his left forearm; tender at times; picks of scale regularly ADR: Allergies Allergen Reactions ??? Aspirin Nausea And Vomiting MEDS: Current Outpatient Prescriptions on File Prior to Visit Medication Sig Dispense Refill ??? gabapentin (NEURONTIN) [...] by mouth daily. ROS General: feeling well Skin: denies other skin complaints EXAM General: NAD, pleasant, cooperative Skin: A focused skin exam was performed. Significant skin findings: A. Nasal dorsum flesh colored collection of connective tissue s/p bx B.0.2-0.3cm scaly irregular pink papule(s) on left forearm C. Brown papule with waxy, stuck-on appearance. Milia-like cysts, comedone-like openings and/or fissuring on dermoscopy located inferior to (B) ASSESSMENT/PLAN: A. Scar, NER, patient instructed to return to clinic for re-evaluation of area if notes change, growth, bleeding, etc. B. AK, Procedure(s): Destruction of lesion(s) with cryotherapy. Number: 1 Location: as above Discussed procedure and expectations including risks (including risk of hypopigmentation) and benefits. Verbal consent obtained. Frozen with LN2, 15-30 second thaw time, TWICE. There were no complications; the patient tolerated the procedure well. Post-procedure expectations and wound care were reviewed. C.Sk, pt reassured D. RTC PRN Note initiated by: CHRISTINA L ANDERSON, HOME HEALTH RN Routed to physician for review and changes: Indy Bear MD Section of Dermatology [facility] documented in this encounter Plan of Treatment Not on file documented as of this encounter Visit Diagnoses Diagnosis Actinic keratosis- Primary Seborrheic keratosis Other seborrheic keratosis documented in this encounter Care Teams Med Care Manager Relationship Specialty Start Date End Date Nabila Blanc, RN LABOR AND DELIVERY PCP - General 12/25/11 07/26/20 documented as of this encounter
--- OUTSIDE RECORDS SUMMARY | 2024-04-30 06:49 | XMS_ITS | Encounter Summary ---
Author Organization [facility] Address [facility] [place] [address] Care Team Providers Care Sheet Combining Operator Name Role Phone Peter Boone MD Primary Care Provider [phone] Encounter Details Date Type Department Care Team (Late st Contact Info) Description 12/08/2022 10:20 AM EDT Ancillary Procedure Radiology Library at [facility] [place] [address] Jamaal Nagel MD [facility] [place] [address] Social History Tobacco Use Types Packs/Day Years [...] LIBRARY STORAGE ONLY CT HEAD Routine 12/08/2022 10:16 AM EDT documented in this encounter Results * Film Library- Storage Only CT Head (12/08/2022 10:16 AM EDT) Narrative [facility] - 12/08/2022 10:16 AM EDT This exam is auto-finalizing. It's purpose is for storage only. Jamaal Nagel MD [facility] FILM LIBRARY ORD ERABLES [facility] [place], [place] documented in this encounter Visit Diagnoses Not on filedocumented in this encounter Care Teams Sheet Combining Operator Relationship Specialty Start Date End Date Peter Boone MD PCP - General Family Medicine 07/27/20 01/29/24 documented as of this encounter
--- OUTSIDE RECORDS SUMMARY | 2024-04-30 06:49 | XMS_ITS | Encounter Summary ---
Author Organization [facility] Address [facility] [place] [address] Care Team Providers Care Otr Owner Operator Name Role Phone Peter Boone MD Primary Care Provider [phone] Encounter Details Date Type Department Care Team (Late st Contact Info) Description 11/30/2022 4:25 PM EDT Ancillary Procedure Radiology Library at [facility] [place] [place] [address] Ford Bowie MD [facility] [place] [address] Social History Tobacco Use Types Packs/Day Years [...] Comments FILM LIBRARY STORAGE ONLY CT HEAD AND SPINE Routine 11/30/2022 4:11 PM EDT documented in this encounter Results * Film Library- Storage Only CT Head And Spine (11/30/2022 4:11 PM EDT) Narrative [facility] - 11/30/2022 4:11 PM EDT This exam is auto-finalizing. It's purpose is for storage only. Ford Bowie MD IMG FILM LIBRARY ORD ERABLES [facility] [place], [place] documented in this encounter Visit Diagnoses Not on filedocumented in this encounter Care Teams Otr Owner Operator Relationship Specialty Start Date End Date Peter Boone MD PCP - General Family Medicine 07/27/20 01/29/24 documented as of this encounter
--- OUTSIDE RECORDS SUMMARY | 2024-04-30 06:49 | XMS_ITS | Encounter Summary ---
Author Organization [facility] Address [address] [place] [address] Care Team Providers Care Marine Safety Officer Name Role Phone Unknown, Provider Primary Care Provider [phone] Encounter Details Date Type Department Care Team (Late st Contact Info) Description 01/08/2019 Results Only [facility] [phone] Sarina Stinson MD [address] [place] [phone] Social History Tobacco Use Types Packs/Day Years Used Date Smoking Tobacco: Never Assessed Sex and Gender Information Value Date Recorded Sex Assigned at Not on file Gender Identity Not on file Sexual Orientation Not on file documented as of this encounter Plan of Treatment Not on file documented as of this encounter Procedures Procedure Name Priority Date/Time Associated Diagnosis Comments SURGICAL PATHOLOGY Routine 01/08/2019 8:50 EDT documented in this encounter Results * SURGICAL PATHOLOGY (01/08/2019 8:50 EDT) Pathology Report: SURGICAL PATHOLOGY REPORT Reports generated via electronic interface contain original data; however they are lacking the format of the original report. Caution should be taken when reading/interpret ing unformatted reports. Name: ? KELVER HOLGUIN ? Accession #: ? [id number] ? : ? 1945 (Age: 73) ??M ? Collect Date: ? 01/08/2019 ? Location: ? [facility] ? Receive Date: ? 01/08/2019 ? Provider: SARINA STINSON MD Copy to: ANUJ SOTO MD ? Final Pathologic Diagnosis: A. ??COLON, SPLENIC FLEXURE, POLYP, BIOPSY: - Tubular adenoma. B. ??COLON, SIGMOID, POLYP, BIOPSY: - Tubular adenoma. Document reviewed and electronically signed by: BERNA HOLLAND MD Report ??Date: 01/12/2019 09:26 By the signature above, the attending physician certifies that he/she has personally conducted a gross and/or microscopic examination of the described specimens and rendered or confirmed the above diagnosis. Specimen(s) Received: A. ??Splenic flexure polyp B. ??Sigmoid colon polyp Clinical History: Colon cancer screening, polyps, mild diverticulosis Gross Description: A. ?Received in formalin labelled with proper patient identification (initials S, E) and splenic flexure polyp is a single rivas-white tissue fragment (0.4 x 0.3 x 0.1 cm). Submitted intact in A1. B. ?Received in formalin labelled with proper patient identification (initials S, E) and sigmoid colon polyp is a single rivas-white tissue fragment (0.2 x 0.2 x 0.1 cm). Submitted intact in B1. Migwen Taylor 01/11/2019 8:06 AM End of Report [facility] 01/08/2019 8:50 EDT 01/08/2019 8:50 EDT Sarina Stinson MD PATHOLOGY ORDERABLES [facility] [address] [place] [address] documented in this encounter Visit Diagnoses Not on filedocumented in this encounter Care Teams Marine Safety Officer Relationship Specialty Start Date End Date Unknown, Provider, PCP - General 04/19/09 04/23/20 documented as of this encounter
--- OUTSIDE RECORDS SUMMARY | 2024-04-30 06:49 | XMS_ITS | Encounter Summary ---
Author Organization [facility] Address [facility] [place] [address] Care Team Providers Care Brick Handler Name Role Phone Peter Boone MD Primary Care Provider [phone] Encounter Details Date Type Department Care Team (Late st Contact Info) Description 12/08/2022 4:40 AM EDT Ancillary Procedure Radiology Library [place] [address] Peter Boone MD [address] [place] [address] [address] [place], [place] [id number] Social History Tobacco Use Types Packs/Day Years [...] STORAGE ONLY CT HEAD AND SPINE Routine 12/08/2022 4:35 AM EDT documented in this encounter Results * Film Library- Storage Only CT Head And Spine (12/08/2022 4:35 AM EDT) Narrative [facility] - 12/08/2022 4:35 AM EDT This exam is auto-finalizing. It's purpose is for storage only. Peter Boone MD IMG FILM LIBRARY ORD ERABLES [facility] [place], [place] documented in this encounter Visit Diagnoses Not on filedocumented in this encounter Care Teams Brick Handler Relationship Specialty Start Date End Date Peter Boone MD PCP - General Family Medicine 07/27/20 01/29/24 documented as of this encounter
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
--- OUTSIDE RECORDS SUMMARY | 2024-04-30 06:49 | XMS_ITS | Encounter Summary ---
Author Organization [facility] Address [facility] [place] [address] Care Team Providers Care Manager Float Name Role Phone Peter Boone MD Primary Care Provider [phone] Encounter Details Date Type Department Care Team (Late st Contact Info) Description 11/30/2022 4:15 PM EDT Ancillary Procedure Radiology Library at [facility] [place] [address] Ford Bowie MD [facility] [place] [address] Social History Tobacco Use Types Packs/Day Years [...] Diagnosis Comments FILM LIBRARY STORAGE ONLY CT SPINE Routine 11/30/2022 4:10 PM EDT documented in this encounter Results * Film Library- Storage Only CT Spine (11/30/2022 4:10 PM EDT) Narrative [facility] - 11/30/2022 4:10 PM EDT This exam is auto-finalizing. It's purpose is for storage only. Ford Bowie MD IMG FILM LIBRARY ORD ERABLES Performing Organization Address City/State/[facility] Co de Phone Number [place], [place] documented in this encounter Visit Diagnoses Not on filedocumented in this encounter Care Teams Manager Float Relationship Specialty Start Date End Date Peter Boone MD PCP - General Family Medicine 07/27/20 01/29/24 documented as of this encounter
--- OUTSIDE RECORDS SUMMARY | 2024-04-30 06:49 | XMS_ITS | Encounter Summary ---
Author Organization [facility] Address [facility] [place] [address] Care Team Providers Care Unit Secy Name Role Phone Peter Boone MD Primary Care Provider [phone] Encounter Details Date Type Department Care Team (Late st Contact Info) Description 12/01/2022 Ancillary Procedure Radiology Library at [facility] [place] [address] Jamaal Nagel MD [facility] [place] [address] Social History Tobacco Use Types Packs/Day Years [...] Diagnosis Comments FILM LIBRARY STORAGE ONLY DX CHEST Routine 12/01/2022 12:00 AM EDT documented in this encounter Results * Film Library- Storage Only DX Chest (12/01/2022 12:00 AM EDT) Narrative [facility] - 12/08/2022 10:10 AM EDT This exam is auto-finalizing. It's purpose is for storage only. Jamaal Nagel MD [facility] FILM LIBRARY ORD ERABLES [place], [place] documented in this encounter Visit Diagnoses Not on filedocumented in this encounter Care Teams Unit Secy Relationship Specialty Start Date End Date Peter Boone MD PCP - General Family Medicine 07/27/20 01/29/24 documented as of this encounter
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
--- OUTSIDE RECORDS SUMMARY | 2024-04-30 06:49 | XMS_ITS | Encounter Summary ---
Author Organization [facility] Address [address] [place] [address] Care Team Providers Care Enterprise Systems Manager Name Role Phone Unknown, Provider Primary Care Provider [phone] Peter Boone MD Primary Care Provider [phone] Encounter Details Date Type Department Care Team (Late st Contact Info) Description 04/21/2020 Lab Requisition [facility] Pathology & Laboratory Medicine - [address] [address] Outr Resulting Lab, Provider Social History Tobacco [...] Procedure Name Priority Date/Time Associated Diagnosis Comments DO NOT ORDER STANDALONE - BROAD COVID TEST Today 04/21/2020 9:39 EDT COVID-19 TESTING Routine 04/21/2020 9:39 EDT documented in this encounter Results * DO NOT ORDER STANDALONE - BROAD COVID TEST (04/21/2020 9:39 EDT) COVID-19 rt-PCR Result NEGATIVE Negative 04/22/2020 17:36 EDT [facility] Comment: 2019-novel Coronavirus (2019-nCoV) not detected by the qRT-PCR assay. Consider testing for other respiratory viruses or re-collecting for 2019-nCoV testing. Note: Optimum timing for peak viral levels during infections caused by 2019-nCoV have not been determined. Collection of multiple specimens from the same patient may be necessary to detect the virus. Limitations Positive results are indicative of active infection with SARS-CoV-2 but do not rule out bacterial infection or co-infection with other viruses. The agent detected may not be the definite cause of disease. In addition, detection of viral RNA may not indicate the presence of infectious virus or that SARS-CoV-2 is the causative agent for clinical symptoms. Negative results do not preclude SARS-CoV-2 infection and should not be used as the sole basis for patient management decisions. Negative results must be combined with clinical observations, patient history, and epidemiological information. False negative results may also occur if amplification inhibitors are present in the specimen or if inadequate numbers of organisms are present in the specimen. Optimum specimen types and timing for peak viral levels during infections caused by SARS-CoV-2 have not been fully determined. Collection of multiple specimens (types and time points) from the same patient may be necessary to detect the virus. The test was validated for use with upper respiratory specimens obtained via nasopharyngeal or oropharyngeal swabs in VTM, UTM, M4, M5, M6, saline, and MTM media. The performance of this test has not been established for other specimens. Specimens collected using other FDA recommended Specimen Collection Materials listed in the FDA COVID-19 Diagnostic Technologies communication (October 07, 2019) are processed with the caveat that they were not all validated for use with this test and the result must be interpreted in this context. Furthermore, a false negative results may occur if a specimen is improperly collected, transported or handled. If the virus mutates in the RT-PCR target region, SARS-CoV-2 may not be detected or may be detected less predictably. Inhibitors or other types of interference may produce a false negative result. An interference study evaluating the effect of common cold medications was not performed. This test is not FDA-cleared but its performance characteristics were established by our CLIA-certified, CAP-accredited, high complexity laboratory in accordance with CLIA regulations, College of [employer] (CAP) guidelines (Sep 30, 2019), and FDA guidance (Sep 11, 2019). This test is only for use under the Food and Drug Administration's Emergency Use Authorization. Swab ENTIRE NASOPHARYNX / Unknown 04/21/2020 9:39 EDT 04/21/2020 15:40 EDT Provider Outr Resulting Lab MICROBIOLOGY - GENERAL ORDERABLES [facility] [place], [place] * COVID-19 TESTING (04/21/2020 9:39 EDT) COVID-19 rt-PCR Result NEGATIVE Negative 04/22/2020 20:19 EDT [facility] Comment: 2019-novel Coronavirus (2019-nCoV) not detected by the qRT-PCR assay. Consider testing for other respiratory viruses or re-collecting for 2019-nCoV testing. Note: Optimum timing for peak viral levels during infections caused by 2019-nCoV have not been determined. Collection of multiple specimens from the same patient may be necessary to detect the virus. Limitations Positive results are indicative of active infection with SARS-CoV-2 but do not rule out bacterial infection or co-infection with other viruses. The agent detected may not be the definite cause of disease. In addition, detection of viral RNA may not indicate the presence of infectious virus or that SARS-CoV-2 is the causative agent for clinical symptoms. Negative results do not preclude SARS-CoV-2 infection and should not be used as the sole basis for patient management decisions. Negative results must be combined with clinical observations, patient history, and epidemiological information. False negative results may also occur if amplification inhibitors are present in the specimen or if inadequate numbers of organisms are present in the specimen. Optimum specimen types and timing for peak viral levels during infections caused by SARS-CoV-2 have not been fully determined. Collection of multiple specimens (types and time points) from the same patient may be necessary to detect the virus. The test was validated for use with upper respiratory specimens obtained via nasopharyngeal or oropharyngeal swabs in VTM, UTM, M4, M5, M6, saline, and MTM media. The performance of this test has not been established for other specimens. Specimens collected using other FDA recommended Specimen Collection Materials listed in the FDA COVID-19 [employer] communication (October 07, 2019) are processed with the caveat that they were not all validated for use with this test and the result must be interpreted in this context. Furthermore, a false negative results may occur if a specimen is improperly collected, transported or handled. If the virus mutates in the RT-PCR target region, SARS-CoV-2 may not be detected or may be detected less predictably. Inhibitors or other types of interference may produce a false negative result. An interference study evaluating the effect of common cold medications was not performed. This test is not FDA-cleared but its performance characteristics were established by our CLIA-certified, CAP-accredited, high complexity laboratory in accordance with CLIA regulations, College of [employer] (CAP) guidelines (Sep 30, 2019), and FDA guidance (Sep 11, 2019). This test is only for use under the Food and Drug Administration's Emergency Use Authorization. Performing Lab [facility] 04/22/2020 20:19 EDT [facility] Swab 04/21/2020 9:39 EDT 04/21/2020 15:40 EDT Provider Outr Resulting Lab MICROBIOLOGY - GENERAL ORDERABLES [facility] [address] [place] [address] [facility] [place], [place] documented in this encounter Visit Diagnoses Not on filedocumented in this encounter Care Teams Enterprise Systems Manager Relationship Specialty Start Date End Date Unknown, Provider, PCP - General 04/19/09 04/23/20 Peter Boone MD [address] [place] [address] [place] [address] PCP - General 04/24/20 documented as of this encounter
--- OUTSIDE RECORDS SUMMARY | 2024-04-30 06:49 | XMS_ITS | Encounter Summary ---
Author Organization [facility] Address [address] [place] [address] Care Team Providers Care Transmission System Operator Name Role Phone Unknown, Provider Primary Care Provider Encounter Details Date Type Department Care Team (Latest Contact Info) Description 01/29/2016 10:19 EDT - 01/29/2016 23:59 EDT Hospital Encounter [address] [address] Unknown, Provider, Discharge Disposition: Home or Self Care Social History Tobacco Use Types Packs/Day Years Used Date Smoking Tobacco: Never Assessed Sex and Gender Information Value Date Recorded Sex Assigned at Not on file Gender Identity Not on file Sexual Orientation Not on file documented as of this encounter Discharge Disposition Disposition Code Departure Means Destination Home or Self Intermediate documented in this encounter Plan of Treatment Not on file documented as of this encounter Visit Diagnoses Not on filedocumented in this encounter Care Teams Transmission System Operator Relationship Specialty Start Date End Date Unknown, Provider, PCP - General 04/19/09 04/23/20 documented as of this encounter
--- OUTSIDE RECORDS SUMMARY | 2024-04-30 06:49 | XMS_ITS | Encounter Summary ---
Author Organization [facility] Address [facility] [place] [address] Care Team Providers Care Lawyer Real Estate Name Role Phone Peter Boone MD Primary Care Provider [phone] Encounter Details Date Type Department Care Team (Late st Contact Info) Description 11/30/2022 Ancillary Procedure Radiology Library at [facility] [place] [address] Jamaal Nagel MD [facility] [place] [address] Social History Tobacco Use Types Packs/Day Years [...] FILM LIBRARY STORAGE ONLY CT HEAD Routine 11/30/2022 12:00 AM EDT documented in this encounter Results * Film Library- Storage Only CT Head (11/30/2022 12:00 AM EDT) Narrative ALFREDO MCCRARY - 12/08/2022 10:10 AM EDT This exam is auto-finalizing. It's purpose is for storage only. Jamaal Nagel MD [facility] [place]M LIBRARY ORD ERABLES [place], [place] documented in this encounter Visit Diagnoses Not on filedocumented in this encounter Care Teams Lawyer Real Estate Relationship Specialty Start Date End Date Peter Boone MD PCP - General Family Medicine 07/27/20 01/29/24 documented as of this encounter
--- OUTSIDE RECORDS SUMMARY | 2024-04-30 06:49 | XMS_ITS | Encounter Summary ---
[place] [address] Care Team Providers Care Academic Support Assistant Name Role Phone Jordan Hudson MD Primary Care Provider + Encounter Details Date Type Department Care Team (Late st Contact Info) Description 01/15/2011 [place] [address] Bryce Pena MD [facility] [place] [address] Social History Tobacco Use Types Packs/Day Years Used Date Smoking Tobacco: Never Assessed Sex and Gender Information Value Date Recorded Sex Assigned at Not on file Gender Identity Not on file Sexual Orientation Not on file documented as of this encounter Plan of Treatment Not on file documented as of this encounter Visit Diagnoses Not on filedocumented in this encounter Care Teams Academic Support Assistant Relationship Specialty Start Date End Date Jordan Hudson MD [address] [place] [address] PCP - General 06/05/10 12/24/11 documented as of this encounter
--- OUTSIDE RECORDS SUMMARY | 2024-04-30 06:49 | XMS_ITS | Encounter Summary ---
Author Organization [facility] Address [address] [place] [address] Care Team Providers Care Tip Bander Name Role Phone Unknown, Provider Primary Care Provider [phone] Encounter Details Date Type Department Care Team (Late st Contact Info) Description 06/12/2004 Results Only [facility] conversion [address] [place] [address] Noam Taveras, DO [address] [facility] [address] [place] [address] Social History Tobacco Use Types Packs/Day Years Used Date Smoking Tobacco: Never Assessed Sex and Gender Information Value Date Recorded Sex Assigned at Not on file Gender Identity Not on file Sexual Orientation Not on file documented as of this encounter Plan of Treatment Not on file documented as of this encounter Procedures Procedure Name Priority Date/Time Associated Diagnosis Comments SURGICAL PATHOLOGY Routine 06/12/2004 0:00 EST documented in this encounter Results * SURGICAL PATHOLOGY (06/12/2004 0:00 EST) Pathology Report: SURGICAL PATHOLOGY REPORT Reports generated via electronic interface contain original data; however they are lacking the format of the original report. Caution should be taken when reading/interpreti ng unformatted reports. Name: ? KLEVER HOLGUIN ? Accession #: ? [id number] ? : ? 1945 (Age: 58) ??M ? Collect Date: ? 06/12/2004 ? Location: ? [facility] ? Receive Date: ? 06/13/2004 ? Provider: NOAM TAVERAS DO Copy to: PAULINE SMITH MD ? Final Pathologic Diagnosis: ? Colon, 50 cm, polypectomy: 1. ?Tubular adenoma. 2. ?No high grade dysplasia or carcinoma identified. Document reviewed and electronically signed by: JEWEL BARNHART MD Report ??Date: 06/15/2004 15:32 By the signature above, the attending physician certifies that he/she has personally conducted a gross and/or microscopic examination of the described specimens and rendered or confirmed the above diagnosis. Specimen(s) Received: ? Polyp 50 cm Clinical History: ? Hx colon polyps Gross Description: ? Received in Hollande's fixative labeled Rockytpaloma and #1 polyp 50 cm is a 0.3 x 0.3 x 0.2 cm biopsy. ??The specimen is submitted intact in one cassette. ?? (JEAN PIERRE Teslee-)/[facility] [place] End of Report [facility] 06/12/2004 06/13/2004 13: 25 EST Noam Taveras DO PATHOLOGY ORDER LEIGHANN [facility] [address] [place] [address] documented in this encounter Visit Diagnoses Not on filedocumented in this encounter Care Teams Tip Bander Relationship Specialty Start Date End Date Unknown, Provider, PCP - General 04/19/09 04/23/20 documented as of this encounter
--- OUTSIDE RECORDS SUMMARY | 2024-04-30 06:49 | XMS_ITS | Encounter Summary ---
Author Organization [facility] [address] Care Team Providers Care Cobbler Apprentice Name Role Phone Peter Boone MD Primary Care Provider [phone] Encounter Details Date Type Department Care Team (Late st Contact Info) Description 08/02/2020 Telephone Otolaryngology at [facility] [place] [id number] Alejandra Rivera Social History Tobacco Use Types Packs/Day [...] encounter Miscellaneous Notes * Telephone Encounter - Alejandra Rivera - 08/02/2020 11:40 AM EST Called pt to schedule 1 mon fu OV with BG. LVM to call back documented in this encounter Plan of Treatment Not on file documented as of this encounter Visit Diagnoses Not on filedocumented in this encounter Care Teams Cobbler Apprentice Relationship Specialty Start Date End Date Peter Boone MD PCP - General Family Medicine 07/27/20 01/29/24 documented as of this encounter
--- OUTSIDE RECORDS SUMMARY | 2024-04-30 06:49 | XMS_ITS | Encounter Summary ---
Author Organization [facility] Address [address] [place] [address] Care Team Providers Care Kitchen Steward Name Role Phone Peter Boone MD Primary Care Provider [phone] Encounter Details Date Type Department Care Team (Late st Contact Info) Description 04/24/2020 Lab Requisition [facility] Pathology & Laboratory Medicine - [facility] [address] [place] [address] Avril Birch, DO [address] [place] [address] Encounter for other general examination Social History Tobacco Use Types Packs/Day Years Used Date Smoking Tobacco: Never Assessed Sex and Gender Information Value Date Recorded Sex Assigned at Not on file Gender Identity Not on file Sexual Orientation Not on file documented as of this encounter Plan of Treatment Not on file documented as of this encounter Procedures Procedure Name Priority Date/Time Associated Diagnosis Comments SURGICAL PATHOLOGY Today 04/24/2020 8: 06 EDT Encounter for other general examination documented in this encounter Results * SURGICAL PATHOLOGY (04/24/2020 8:06 EDT) Final Diagnosis A. STOMACH, ANTRUM, BIOPSY: - Transitional mucosa with reactive (chemical) gastropathy. - Negative for Helicobacter pylori microorganisms on H&E stained sections. B. DUODENAL BULB, BIOPSY: - Duodenal mucosa with no significant pathologic features. C. STOMACH, GREATER CURVE, BIOPSY: - Fundic mucosa with no specific pathologic features. - Negative for Helicobacter pylori microorganisms on H&E stained sections. D. GASTROESOPHAGEAL JUNCTION, BIOPSY: - Squamocolumnar mucosa with intestinal metaplasia. - Negative for dysplasia. 04/25/2020 12:00 [facility] Attestation By the signature below, the attending physician certifies that they have 1) personally conducted a gross and/or microscopic examination of the described specimen(s), and/or personally interpreted the results of laboratory testing of the described specimen(s), and 2) personally rendered or confirmed the above diagnosis. 04/25/2020 12:00 [facility] at 1200 Clinical History Dysphagia, weight loss 04/25/2020 12:00 [facility] Gross Description A. Received in formalin labelled with proper patient identification (initials S, E) and antrum Bx is a single fragment of rivas tissue (0.5 x 0.3 x 0.2 cm). The specimen is submitted entirely in A1. B. Received in formalin labelled with proper patient identification (initials S, E) and duodenal bulb is a single fragment of rivas tissue (0.5 x 0.3 x 0.3 cm). The specimen is submitted entirely in B1. C. Received in formalin labelled with proper patient identification (initials S, E) and greater curve is a single fragment of rivas tissue (0.2 x 0.2 x 0.2 cm). The specimen is submitted entirely in C1. D. Received in formalin labelled with proper patient identification (initials S, E) and GE junction is a single fragment of white tissue (0.3 x 0.2 x 0.1 cm). The specimen is submitted entirely in D1. AMINTA FREEMAN(ASCP) 04/24/2020 16:58 04/25/2020 12:00 T [facility] Performing Lab [facility] 12:00 T [facility] Scanned Images 04/25/2020 12:00 [facility] Tissue ENTIRE ESOPHAGUS / Unknown 04/24/2020 8:06 EDT 04/24/2020 16:30 EDT Tissue specimen (specimen) STRUCTURE OF SMALL INTESTINE / Unknown 04/24/2020 8:06 EDT 04/24/2020 16:32 EDT Tissue specimen (specimen) STOMACH STRUCTURE / Unknown 04/24/2020 8:06 EDT 04/24/2020 16:32 EDT Tissue specimen (specimen) ESOPHAGEAL STRUCTURE / Unknown 04/24/2020 8:06 EDT 04/24/2020 16:32 EDT Avril Birch DO PATHOLOGY ORDERABLES [facility] [address] [place] [address] documented in this encounter Visit Diagnoses Diagnosis Encounter for other general examination documented in this encounter Care Teams Kitchen Steward Relationship Specialty Start Date End Date Peter Boone MD [address] [place] [address] PCP - General 04/24/20 documented as of this encounter
--- OUTSIDE RECORDS SUMMARY | 2024-04-30 06:49 | XMS_ITS | Encounter Summary ---
Author Organization [facility] Address [address] [place] [address] Care Team Providers Care Local Operator Name Role Phone Unknown, Provider Primary Care Provider Encounter Details Date Type Department Care Team (Late st Contact Info) Description 03/11/2001 Results Only [facility] - [facility] [address] [place] [address] Noam Taveras, DO [address] [facility] [address] [place] [address] Social History Tobacco Use Types [...] Date/Time Associated Diagnosis Comments SURGICAL PATHOLOGY Routine 03/11/2001 0:00 EDT documented in this encounter Results * SURGICAL PATHOLOGY (03/11/2001 0:00 EDT) Pathology Report: SURGICAL PATHOLOGY REPORT Reports generated via electronic interface contain original data; however they are lacking the format of the original report. Caution should be taken when reading/interpreti ng unformatted reports. Name: ? KLEVER HOLGUIN ? Accession #: ? [id number] ? : ? 1945 (Age: 55) ??M ? Collect Date: ? 03/11/2001 ? Location: ? [facility] ? Receive Date: ? 03/11/2001 ? Provider: NOAM TAVERAS DO Copy to: CHACORTA SMITH MD ? Final Pathologic Diagnosis: ? Colon, 40 cm, polyp, biopsy: 1. ?Tubular adenoma. 2. ?Resection margin negative for adenomatous epithelium. Document reviewed and electronically signed by: Carmen Patricio MD Report ??Date: 03/13/2001 17:30 By the signature above, the attending physician certifies that he/she has personally conducted a gross and/or microscopic examination of the described specimens and rendered or confirmed the above diagnosis. Specimen(s) Received: ? Polyp 40 cm Clinical History: ? Family history colon CA Gross Description: ? Received in formalin labelled Shatney and polyp 40 cm is a 1.5 x 1.2 x 0.8 cm slightly lobular polypoid soft tissue fragment. ??It is identified as a 0.2 cm long stalk. ??The resection margin is inked black and the specimen is quadrisected and entirely submitted in cassettes (A1) and (A2). ??(Jennifer Hong)/[facility] End of Report AISHA LEIGH 03/11/2001 03/11/2001 15: 19 EDT Noam Taveras DO PATHOLOGY ORDER [facility] [address] [place] [address] documented in this encounter Visit Diagnoses Not on filedocumented in this encounter Care Teams Local Operator Relationship Specialty Start Date End Date Unknown, Provider, PCP - General 04/19/09 04/23/20 documented as of this encounter
--- OUTSIDE RECORDS SUMMARY | 2024-04-30 06:49 | XMS_ITS | Encounter Summary ---
Author Organization [facility] [place] [address] Care Team Providers Care Torch Cutter Name Role Phone Nabila Blanc APRN Primary Care Provider [phone] Encounter Details Date Type Department Care Team (Late st Contact Info) Description 05/17/2020 Ancillary Procedure Radiology Library at [facility] [place] [id number] Nabila Blanc, SALES VICE PRESIDENT [address] [place] [address] Social History Tobacco Use Types Packs/Day Years [...] Priority Date/Time Associated Diagnosis Comments FILM LIBRARY - STORAGE ONLY CT NECK Routine 05/17/2020 12:00 AM EST documented in this encounter Results * Film Library- Storage Only CT Neck (05/17/2020 12:00 AM EST) Narrative [facility] - 07/05/2020 9:15 AM EST This exam is auto-finalizing. It's purpose is for storage only. Nabila Blanc APRN IMG FILM LIBRARY OR DERABLES [facility] [place], [place] documented in this encounter Visit Diagnoses Not on filedocumented in this encounter Care Teams Torch Cutter Relationship Specialty Start Date End Date Nabila Blanc APRN PCP - General 12/25/11 07/26/20 documented as of this encounter
--- OUTSIDE RECORDS SUMMARY | 2024-04-30 06:49 | XMS_ITS | Encounter Summary ---
Author Organization [facility] Address [facility] [place] [address] Care Team Providers Care Manager Agricultural Name Role Phone Peter Boone MD Primary Care Provider [phone] Encounter Details Date Type Department Care Team (Late st Contact Info) Description 12/08/2022 [place] [id number] Deann Li MD [facility] [place] [place] [address] Social History Tobacco Use Types Packs/Day Years [...] encounter Miscellaneous Notes * Telephone Encounter - Deann Li MD - 12/08/2022 5:06 AM EDT Spoke to Dr. Per Cullen of [facility] re: Klever Holguin who is a 77 y.o. male that is largely un-doctored though has known PMH of smoking, ROE, COPD that returns to OSH s/p yet another fall a week later from prior (on 11/30) this time mechanical ground-level fall while ambulating to the bathroom tripping and hitting his right brow found to have bifrontal hyperdensi ties concerning for hemorrhage versus scatter versus calcification for which neurosurgery was called to interpret the findings. Per report from the OSH provider, the patient had a fall off a 10 foot ladder about a week ago and sustained polytrauma including a splenic laceration, minor spine fractures, and a tiny focus of either subarachnoid blood and/or a small cortical contusion in the right parietal region at that time (NSGY was not called then). A repeat scan was obtained that was stable and he was discharged home without issue. This time around when the patient was getting up to go to the bathroom early in the morning of 12/08 with the lights off he tripped fell and hit his head. Has a scalp laceration as well asthese bifrontal hyperdensities but no other injuries. Dr. Cullen tells me the patient has no neurologic deficits. He is able to ambulate and although he is sore from his last trauma he is not ataxic. Not complaining of headaches. Upon further review of the imaging hyperdensities appear more like scatter from the way the CT scanwas obtained. Thus I advised that a repeat CT head be obtained in 6 hours from the prior and the outside hospital call us back for recommendations. If there is no hemorrhage then nothing further to do. If there is hemorrhage, then we would advise a 1 week course of Keppra, not taking any further blood thinners (took ASA for pain a few days ago) and following up with us in clinic in [address] head[address] They will call us back upon completion of imaging for further recommendations. Deann Li MD 12/08/2022 5:15 AM documented in this encounter Plan of Treatment Not on file documented as of this encounter Visit Diagnoses Not on filedocumented in this encounter Care Teams Manager Agricultural Relationship Specialty Start Date End Date Peter Boone MD PCP - General Family Medicine 07/27/20 01/29/24 documented as of this encounter
--- OUTSIDE RECORDS SUMMARY | 2024-04-30 06:49 | XMS_ITS | Encounter Summary ---
Author Organization [facility] Address [address] [place] [address] Care Team Providers Care Metalworking Specialist Name Role Phone Unavailable Primary Care Provider Unavailabl e Encounter Details Date Type Department Care Team (Late st Contact Info) Description 04/14/2009 Orders Only [facility] Laboratory Services - [facility] ([facility] [place] [address] [place], [place] [id number] Noam Taveras, [address] [facility] [address] [place], [place] [id number] Social History Tobacco Use Types Packs/Day Years Used Date Smoking Tobacco: Never Assessed Sex and Gender Information Value Date Recorded Sex Assigned at Not on file Gender Identity Not on file Sexual Orientation Not on file documented as of this encounter Plan of Treatment Not on file documented as of this encounter Procedures Procedure Name Priority Date/Time Associated Diagnosis Comments SURGICAL PATHOLOGY Routine 04/14/2009 0:00 EDT documented in this encounter Results * SURGICAL PATHOLOGY (04/14/2009 0:00 EDT) Pathology Report: SURGICAL PATHOLOGY REPORT ? Reports generated via electronic interface contain original data; ? however they are lacking the format of the original report. ? Caution should be taken when reading/interpreti ng unformatted reports. ? Name: ? CHELSIE, MARCKWARD E ? Accession #: ? [id number] ? : ? 1945 (Age: 63) ??M ? Collect Date: ? 04/14/2009 ? Location: ? [facility] ? Receive Date: ? 04/14/2009 ? Provider: NOAM TAVERAS DO ? Copy to: PAULINE MEIERDIERCKS MD ? Final Pathologic Diagnosis: ? Rectum, polyp, biopsy: ? - Rectal mucosa with surface hyperplastic changes. ??See comment. ? Comment: ? Deeper sections examined. ??(T. Arnulfo)/kmm ? Document reviewed and electronically signed by: ? ABDELMONEM ELHOSSEINY MD ? Report ??Date: 04/19/2009 15:25 ? By the signature above, the attending physician certifies that he/she has ? personally conducted a gross and/or microscopic examination of the described ? specimens and rendered or confirmed the above diagnosis. ? Specimen(s) Received: ? Rectal polyp ? Clinical History: ? P/H colon polyps ? Gross Description: ? Received in Hollande's fixative labelled Chelsie, Marckward and rectal ? polyp are two rivas-pink irregular soft tissues each measuring 0.3 x 0.2 x 0.1 ?? cm. ??The specimens are submitted entirely in one cassette. (Korina Saldivar)/mpl ? End of Report ? AISHA LEIGH 04/14/2009 04/14/2009 7:0 4 EDT Noam Taveras DO PATHOLOGY ORDER [facility] [address] [place] [address] documented in this encounter Visit Diagnoses Not on filedocumented in this encounter
--- OUTSIDE RECORDS SUMMARY | 2024-04-30 06:49 | XMS_ITS | Encounter Summary ---
Author Organization [facility] [place] [address] Care Team Providers Care Dye House Helper Name Role Phone Nabila Blanc HIGH SCHOOL SCIENCE TUTOR Primary Care Provider [phone] Encounter Details Date Type Department Care Team (Late st Contact Info) Description 04/04/2020 Ancillary Procedure Radiology Library at [facility] [place] [phone] Nabila Blanc, HIGH SCHOOL SCIENCE TUTOR [address] [place] [address] Social History Tobacco Use Types Packs/Day Years [...] Comments FILM LIBRARY STORAGE ONLY CT CHEST Routine 04/04/2020 12:00 AM EDT documented in this encounter Results * Film Library- Storage Only CT Chest (04/04/2020 12:00 AM EDT) Narrative [facility] - 07/05/2020 9:14 AM EST This exam is auto-finalizing. It's purpose is for storage only. Nabila Blanc APRN IMG FILM LIBRARY OR DERABLES [facility] [place], [place] documented in this encounter Visit Diagnoses Not on filedocumented in this encounter Care Teams Dye House Helper Relationship Specialty Start Date End Date Nabila Blanc APRN PCP - General 12/25/11 07/26/20 documented as of this encounter
--- OUTSIDE RECORDS SUMMARY | 2024-04-30 06:49 | XMS_ITS | Encounter Summary ---
Author Organization [facility] [place] [address] Care Team Providers Care Hall Supervisor Name Role Phone Nabila Blanc BRITTANY Primary Care Provider [phone] Encounter Details Date Type Department Care Team (Latest Contact Info) Description 06/01/2020 11:46 AM EST - 06/01/2020 11:59 PM EST Hospital [place] [address] Discharge Disposition: Home Social History Tobacco Use [...] Procedure Name Priority Date/Time Associated Diagnosis Comments COVID-19 PCR Routine 06/01/2020 9:23 AM EST documented in this encounter Results * COVID-19 PCR (06/01/2020 9:23 AM EST) SARS-CoV-2 RNA Not Detected Not Detected [facility] Comment: This result should be interpreted in combination with the clinical observations, patient history and epidemiological information in making a final diagnosis. For testing of asymptomatic individuals, assay performance characteristics and clinical utility have not been evaluated. Testing for SARS-CoV-2 (Severe acute respiratory syndrome coronavirus 2, formerly known as 2019 novel coronavirus or 2019-nCoV) to aid in the diagnosis of COVID-19 is performed using the [employer] SARS-CoV-2 Assay as authorized by the FDA Emergency Use Authorization (EUA). This EUA assay is intended for In-vitro Diagnostic (IVD) use with respiratory specimens such as nasopharyngeal swabs collected from individuals during the acute phase of infection. This assay is performed based on the instructions for use provided by [employer] and additional guidance provided by CDC and FDA. Testing is performed in the [facility] within the Department of Pathology and Laboratory Medicine at [facility], certified under the Clinical Laboratory Improvement Amendments of 1988 (CLIA), 42 U.S.C. 263a, to perform high complexity tests. Assay performance has been verified according to clinical laboratory regulatory requirements for use with specimens collected from individuals suspected of COVID-19. Test results are provided above. A result of ? Not Detected? indicates that the viral RNA target is not present above the limit of detection, but does not preclude SARS-CoV-2 infection. False negative results may occur if a specimen is improperly collected, transported or handled; if amplification inhibitors are present; or if inadequate numbers of viral particles are present in the specimen. When a diagnostic test is negative, the possibility of a false negative result should be considered in the context of a patient? s recent exposures and the presence of clinical signs and symptoms consistent with COVID-19. A result of ? Detected? indicates that RNA from SARS-CoV-2 was detected and the patient is infected. As required or requested by public health authorities, positive specimens may be sent for additional testing. Positive and negative predictive values for this test are highly dependent on disease prevalence. A result of ? Invalid? indicates that neither the viral RNA targets nor the internal control target was detected. An invalid result suggests the presence of inhibitors. Recollection and re-testing is recommended in the case of an invalid result. CDC COVID-19 criteria for testing on human specimens and clinical management guidance information are available at the CDC Coronavirus Disease 2019 (COVID-19) webpage under ? Information for Healthcare Professionals? (https://www.cdc.gov/coronavirus/2019-ncov/hcp/index.html) Additional information about this and other EUA tests can be found in provider and patient fact sheets at the following FDA website: https://www.fda.gov/medical-devices/aousztdcncr-fwqzmxq-5262-kepdq-22-esutmqozb- use-a adwmvbmozkzxw-zqcxbqq-bgikfpa/pezlf-hgfpnvbzwvo-hwku SARS-CoV-2 RNA Source Nasal [facility] Specimen from nose (specimen) Other / Unknown 06/01/2020 9:23 AM EST 06/01/2020 11:48 PM EST Narrative Resulting Agency Comment Spec In Lab Theodore Franco MD MOLECULAR ORDERABLES [facility] [place] [phone] documented in this encounter Visit Diagnoses Not on filedocumented in this encounter Care Teams Hall Supervisor Relationship Specialty Start Date End Date Nabila Blanc APRN PCP - General 12/25/11 07/26/20 documented as of this encounter
== END 2024-04-30 06:42 | disposition home or self-care (01) ==
LOC: ER 06:45
PROVIDERS: Emergency Provider Student in an Organized Health Care Education/Training Program; PCP Student in an Organized Health Care Education/Training Program
DX: R33.9 Retention of urine, unspecified (principal); R31.9 Hematuria, unspecified
CPT/HCPCS: 51702; 99283; 81003; 81015

== ENCOUNTER → 2024-05-05 13:33 | Outpatient (BNVA) | payer OTHER, SELFPAY | PROVIDERS: PCP Student in an Organized Health Care Education/Training Program; Referring Provider Family Medicine; Visit Provider Physician Assistant Surgical | DX: J44.9 Chronic obstructive pulmonary disease, unspecified (principal); G47.33 Obstructive sleep apnea (adult) (pediatric); F17.210 Nicotine dependence, cigarettes, uncomplicated | CPT/HCPCS: 99214 ==

== ENCOUNTER 2024-05-10 02:28 | Outpatient (CLI) | payer OTHER, SELFPAY ==
[2024-05-10] MEDS: Levalbuterol HFA 15 GM INH 4 PUFF IH (13:54)
[2024-05-10] MEDS: Inhaler, Assist Device 1 EACH MC (13:54)
--- NOTE | 2024-05-10 16:52 | W.PFT ---
Date of service: 05/10/24 Time of Service: 12:59 Pulmonary Function Test Result Indications: COPD Interpretation Spirometry: There is moderate airflow limitation. No bronchodilator response. Lung Volumes: There is hyperinflation and air trapping. Diffusion Capacity: Decreased diffusion Airway Pressure: Increased airways resistance Impression Moderate airflow obstruction with air trapping and a decreased diffusion consistent with COPD with emphysema. Clinical Correlation therefore is recommended.
== END 2024-05-10 02:29 | disposition home or self-care (01) ==
LOC: RT 02:28
PROVIDERS: PCP Student in an Organized Health Care Education/Training Program; Visit Provider Physician Assistant Surgical
DX: J44.89 Other specified chronic obstructive pulmonary disease (principal)
CPT/HCPCS: 94060; 94726; 94729

== ENCOUNTER 2024-05-15 20:03 | Emergency (ER) | payer OTHER, SELFPAY ==
[2024-05-15 20:07] VITALS: BP 160/91; PULSE 73; RESP 18; TEMP 36.9; O2SAT 98
--- NOTE | 2024-05-15 20:09 | ED.GENADUL_ITS ---
Discharge Plan Disposition Patient Disposition: Home Condition: Stable Discharge Details Clinical Impression: Irving catheter problem, Urinary tract infection Primary Care Provider: Curry Contreras ED Provider: Per Martino Home Meds and New Rx's Prescriptions: New cephalexin 500 mg capsule 500 mg PO QID 10 Days Qty: 40 0RF Continued albuterol sulfate 90 mcg/actuation HFA aerosol inhaler 2 puff inhalation Q6H PRN (Reason: shortness of breath or wheezing) Qty: 8.5 12RF Trelegy Ellipta 100-62.5-25 mcg blister with device 1 inh inhalation DAILY Qty: 60 5RF bisacodyl [Dulcolax (bisacodyl)] 5 mg tablet,delayed release (DR/EC) 5 mg PO ONCE Qty: 4 0RF Rx Instructions: Take per colonoscopy instructions provided by ordering providers office propranolol 120 mg capsule,extended release 24 hr 120 mg PO DAILY cholecalciferol (vitamin D3) 50 mcg (2,000 unit) capsule 50 mcg PO DAILY acetaminophen 500 mg Tablet 650 mg PO TID PRN PRNQty: 0 0RF varenicline 1 mg tablet 1 mg PO ONCE Discharge Instructions Instructions: How to Care for Your Irving Catheter Additional Instructions: You were seen in the emergency department for your Irving catheter being clogged. We had to replace it with a new 1. It is now flowing freely. Your urine did have some odor to it so we did send off a sample to the lab, this will result overnight, I would like you to follow-up with Dr. Ragsdale and urology on whether they want you to start antibiotics for possible UTI based on these results. Please return to the emergency department for any urinary retention, further catheter obstructions, any increasing fever, abdominal pain, weakness or nausea. Referrals: [facility] [Provider Group] Curry Contreras [Primary Care Provider] - Discharge Data Discharge Date/Time-TO BE ENTERED AT DEPARTURE: 05/15/24 21:31 HPI General Date/Time Provider Initiated Documentation: 05/15/24 20:09 . HPI Narrative: 78 year-old male presents to ED today by POV/ambulating with a chief complaint of Irving catheter problem, states he is leaking urine around his Irving catheter and was placed for urinary retention with onset today. Quality described as catheter had urine leaking around it, no radiation to fever, nausea, weakness, endorses lower abdominal pressure, denies flank pain. Severity is described as unable to quantify. Palliating factors include nothing specific attempted. Provoking factors include nothing specific. Patient not anticoagulated. Related Data Home Medications ?Medication ?Instructions ?Recorded ?Confirmed cholecalciferol (vitamin D3) 50 50 mcg PO DAILY 04/06/20 05/15/24 mcg (2,000 unit) capsule propranolol 120 mg capsule,24 120 mg PO DAILY 04/06/20 05/15/24 hr,extended release albuterol sulfate 90 mcg/actuation 2 puff inhalation Q6H PRN 02/04/22 05/15/24 aerosol inhaler shortness of breath or wheezing #8.5 grams fluticasone fur. 100 mcg-umeclid 1 inh inhalation DAILY #60 ea 05/16/22 05/15/24 62.5 mcg-vilant 25 mcg inhalat.powder (Trelegy Ellipta) acetaminophen 500 mg tablet 650 mg (1.3 x 500 mg) PO TID PRN 12/02/22 05/15/24 PRN #0 tabs bisacodyl 5 mg tablet,delayed 5 mg PO ONCE #4 tabs 08/21/23 05/15/24 release (Dulcolax (bisacodyl)) varenicline 1 mg tablet 1 mg PO ONCE 04/30/24 05/15/24 cephalexin 500 mg capsule 500 mg PO QID UTI 10 days #40 caps 05/16/24 Previous Rx's ?Medication ?Instructions ?Recorded albuterol sulfate 90 mcg/actuation 2 puff inhalation Q6H PRN 02/04/22 aerosol inhaler shortness of breath or wheezing #8.5 grams fluticasone fur. 100 mcg-umeclid 1 inh inhalation DAILY #60 ea 05/16/22 62.5 mcg-vilant 25 mcg inhalat.powder (Trelegy Ellipta) acetaminophen 500 mg tablet 650 mg (1.3 x 500 mg) PO TID PRN 12/02/22 PRN #0 tabs bisacodyl 5 mg tablet,delayed 5 mg PO ONCE #4 tabs 08/21/23 release (Dulcolax (bisacodyl)) cephalexin 500 mg capsule 500 mg PO QID UTI 10 days #40 caps 05/16/24 Allergies Allergy/AdvReac Type Severity Reaction Status Date / Time aspirin AdvReac Intermediate GI UPSET Verified 05/15/24 20:09 General Stated Complaint: Urinary NAWAF: 3 Review of Systems All systems reviewed & are unremarkable except as noted in HPI and below Exam Narrative Exam Narrative: GENERAL APPEARANCE: Well-nourished, non-toxic, awake and alert, atraumatic, no acute distress. SKIN: Warm, pink, dry, intact, without rashes/lesions/ulcerations. HEAD: Normocephalic, atraumatic, normal hair distribution for gender/age. EYES: Normal conjunctiva, no exudates on lids/lashes. ENT: Nares patent, no circumoral cyanosis, no facial swelling NECK: Supple, trachea midline, painless cervical ROM. LUNGS/CHEST: Non-labored respirations, normal A/P diameter, symmetrical expansion, no chest wall deformity HEART (CV/PV): No peripheral edema, no JVD. ABDOMEN: Soft, non-distended, no guarding, mild suprapubic discomfort, no CVA tenderness to percussion bilaterally. MSK: Normal ROM, no swelling/deformity to bilateral UEs or LEs, moving all extremities without weakness, no cyanosis, spine midline without tenderness, normal curvature. NEURO: Mental Status AAOx4 - alert to person, place, time, events No facial droop, no forehead involvement. Motor: No focal weakness - strength 5/5 in bilateral UEs and LEs, proximal and distal, symmetric. Sensory: sensation intact to light touch globally. Gait normal: patient ambulated without ataxia into ED room. PSYCH: euthymic, cooperative, pleasant, appropriate speech Course Vital Signs Vital signs: Vital Signs Temperature 36.9 C 05/15/24 20:07 Pulse 73 05/15/24 20:07 Respiratory Rate 18 05/15/24 20:07 Blood Pressure 160/91 H 05/15/24 20:07 Pulse Oximetry 98 05/15/24 20:07 Temperature 36.9 C 05/15/24 20:07 Pulse 73 05/15/24 20:07 Respiratory Rate 18 05/15/24 20:07 Respiratory Effort Normal 05/15/24 20:09 Blood Pressure 160/91 H 05/15/24 20:07 Pulse Oximetry 98 05/15/24 20:07 Oxygen Delivery Method Room Air 05/15/24 20:07 Oxygen Flow Rate 0 05/15/24 20:07 Pain Level 6 05/15/24 20:07 Medical Decision Making This dictation utilizes [id number] dictation software and may contain unedited grammatical errors. 78 year-old male presents to ED today by POV/ambulating with a chief complaint of Irving catheter problem, states he is leaking urine around his Irving catheter and was placed for urinary retention with onset today. Quality described as catheter had urine leaking around it, no radiation to fever, nausea, weakness, endorses lower abdominal pressure, denies flank pain. Severity is described as unable to quantify. Palliating factors include nothing specific attempted. Provoking factors include nothing specific.. Patients' medical history: History of nephrolithiasis, chronic lower back pain, COPD, gross hematuria. Family and social history: Noncontributory. Pertinent exam findings / vital signs include suprapubic discomfort, no CVA tenderness bilaterally to percussion. Differential / pathologies of concern include Irving catheter problem, UTI. Diagnostic studies of: -UA - due to foul smell, shows likely UTI, patient did not want to wait for results Interventions of: -Rx sent for Cephalexin, will had admin staff alert the patient as he left prior to results. ED Course/Assessment/Plan: 78-year-old male with nontoxic vitals presents with leaking around his Irving catheter, this was placed 04/30 here in ED, has not followed up with Urology. He did not want to wait for results of UA, sent cephalexin to his pharmacy next day on arrival in ED. Cx is still pending. Admin staff alerted patient to cone picker antibiotics and see Urology which he has not yet in records search. Findings not consistent with irving catheter obstruction after new catheter placed. Disposition of Irving Catheter Problem, Urinary Tract Infection. Patient verbalized understanding of the plan and return to ED criteria and engaged in shared decision making. Medical Records Medical records reviewed: Yes I reviewed the patient's medical records. Lab Data Lab results reviewed: Yes I reviewed the patient's lab results. Labs: 05/15/24 20:55 Urine - Reflex from Ua Urine Culture - Pending Laboratory Tests Range/Units 05/15/24 20:55 Urine Color (Yellow) Yellow Urine Clarity (Clear) Cloudy Urine pH (5-8) 8.0 Ur Specific Bledsoe (1.005-1.025) 1.025 Urine Protein (Neg-Trace) mg/dL 30 H Urine Ketones (Negative) mg/dL Negative Urine Blood (Negative) Large H Urine Nitrite (Negative) Positive H Urine Bilirubin (Negative) Negative Urine Urobilinogen (Up to 0.2) mg/dL 0.2 Ur Leukocyte Esterase (Negative) Small H Urine RBC (0-2) HPF 20-50 H Urine WBC (0-5) HPF >50 H Ur Epithelial Cells (Negative) HPF Few Urine Crystals (Negative) HPF Negative Urine Bacteria (Negative) HPF Moderate Urine Casts (Negative) LPF Negative Urine Mucus (Negative) Negative Ur Culture Indicated? Yes Urine Glucose (Negative) mg/dL Negative Quality:SDOH Health Related Social Needs: No Data to Display PFSH All Active Problems (Updated 05/16/24 @ 15:05 by AMINTA Pa) Urinary tract infection (Acute) Irving catheter problem (Acute) Hematuria (Acute) Encounter for Irving catheter replacement (Acute) Acute urinary retention (Acute) Gross hematuria (Acute) Family history of colon cancer (Acute) Anemia (Chronic) Sacral fracture (Acute) Nasal bone fracture (Acute) Advanced care planning/counseling discussion (Acute) TBI (traumatic brain injury) (Acute) Subdural hematoma (Acute) COVID-19 (Acute) Spleen laceration (Acute) Acute cholecystitis (Acute) Bleeding in brain (Acute) Abdominal pain (Acute) Acute blood loss anemia (Acute) Ruptured spleen (Acute) Lethargy (Acute) Fall (Acute) Minor contusion of spleen (Acute) Subarachnoid bleed (Acute) Lumbar transverse process fracture (Acute) 3 vertebrae Nicotine dependence, cigarettes, uncomplicated (Acute) Constipation (Acute) ROE and COPD overlap syndrome (Acute) Rib pain on right side (Acute) Fall as cause of accidental injury at home as place of occurrence (Acute) Anemia, iron deficiency (Acute) Weight loss, abnormal (Acute) Tubular adenoma (Acute 01/29/16) Mass of vallecula (Acute) Pharyngeal dysphagia (Acute) Aspiration into lower respiratory tract (Acute) Vocal cord dysfunction (Acute) Vocal cord paralysis (Acute) Ribs, multiple fractures (Acute 06/05/13) Ribs 7 through 9 Atelectasis (Acute 06/05/13) COPD (chronic obstructive pulmonary disease) (Chronic) Tobacco abuse (Chronic) Ongoing tobacco use, nicotiune replacement not helpful, Chntix helped in the past but could not afford. PFT's performed 07/03/12 with REV1 60% predicted, severe obstrructive disease with no significant bronchodilator response. Sleep apnea (Chronic) Treated with CPAP. Essential tremor (Chronic) Chronic back pain (Chronic) Weight loss (Acute) Dysphagia (Acute) Hyperlipidemia (Chronic) Medical History History of nephrolithiasis Palliative care encounter Shoulder pain, left Polyuria History of broken collarbone right collarbone fx with hardware- per pt 6 years ago Chronic low back pain Colon polyps 01/08/19 w/ Dr Marya Stinson, [facility], tubular adenoma, repeat 3 yrs 01/29/16 w/ Dr. Aleyda Irizarry, 4 tubular adenoma's, repeat 3 years Cigarette smoker Tremor COPD (chronic obstructive pulmonary disease) Hearing loss Sleep apnea Surgical History Hx of surgical procedure clavicle repair Hx of thumb surgery 1973. Hardware in place Family History Mother Colon cancer Social History Smoking/Tobacco Use Status: Current every day Tobacco Type: cigarettes Tobacco: How many years used: 50 Smoking risk assessment performed?: Yes Alcohol Intake: never Drug use: Never Substance use type: does not use Housing: house Do you feel safe at home: Yes (unable to ask privately) Do you feel safe in your relationship?: Yes Additional Social history:
[2024-05-15 21:05] LABS: Bilirubin Negative (Negative); Blood Large (Negative); Clarity Cloudy (Clear); Glucose Negative (Negative); Ketones Negative (Negative); Leukocyte Esterase Small (Negative); Nitrite Positive (Negative); Specific Gravity 1.025 (1.005-1.025); Urobilinogen 0.2 mg/dL (Up to 0.2)
[2024-05-15 21:09] LABS: Bacteria Moderate HPF (Negative); C & S Indicated? Yes; Casts Negative LPF (Negative); Crystals Negative HPF (Negative); Epithelial Cells Few HPF (Negative); Mucus Negative (Negative); RBC 20-50 HPF (0-2); WBC >50 HPF (0-5)
--- NOTE | 2024-05-16 15:14 | NUR.NOTE ---
Called Pt for Luis Martino to advise that Pt has a UTI. Luis called in the antibiotics to [facility] in [place]. I also told Pt to speak to Urology to follow up with the many visits to the ER. Pt advised he heard and understood what my message to his was.
== END 2024-05-15 21:31 | disposition home or self-care (01) ==
PROVIDERS: Emergency Provider Physician Assistant; PCP Student in an Organized Health Care Education/Training Program
DX: T83.098A Other mechanical complication of other urinary catheter, initial encounter (principal); N39.0 Urinary tract infection, site not specified; J44.9 Chronic obstructive pulmonary disease, unspecified; F17.210 Nicotine dependence, cigarettes, uncomplicated
CPT/HCPCS: 87077; 99283; 81003; 81015; 87086; 87186

== ENCOUNTER 2024-05-25 19:04 | Emergency (ER) | payer OTHER, SELFPAY ==
[2024-05-25 19:09] VITALS: BP 139/92; PULSE 76; RESP 18; TEMP 36.2; O2SAT 94
--- NOTE | 2024-05-25 19:19 | ED.GENADUL_ITS ---
Discharge Plan Disposition Patient Disposition: Home Condition: Stable Discharge Details Clinical Impression: Mantilla catheter problem Primary Care Provider: Curry Contreras ED Provider: Per Martino Home Meds and New Rx's Prescriptions: Continued albuterol sulfate 90 mcg/actuation HFA aerosol inhaler 2 puff inhalation Q6H PRN (Reason: shortness of breath or wheezing) Qty: 8.5 12RF Trelegy Ellipta 100-62.5-25 mcg blister with device 1 inh inhalation DAILY Qty: 60 5RF bisacodyl [Dulcolax (bisacodyl)] 5 mg tablet,delayed release (DR/EC) 5 mg PO ONCE Qty: 4 0RF Rx Instructions: Take per colonoscopy instructions provided by ordering providers office propranolol 120 mg capsule,extended release 24 hr 120 mg PO DAILY cholecalciferol (vitamin D3) 50 mcg (2,000 unit) capsule 50 mcg PO DAILY acetaminophen 500 mg Tablet 650 mg PO TID PRN PRNQty: 0 0RF cephalexin 500 mg capsule 500 mg PO QID 10 Days Qty: 40 0RF varenicline 1 mg tablet 1 mg PO ONCE Discharge Instructions Instructions: How to Care for Your Mantilla Catheter Additional Instructions: You were seen in the emergency department for your continued Mantilla catheter problems, you have urology visit tomorrow at 8 AM, please continue the cephalexin I prescribed you at last visit for the UTI. You need to definitively follow-up with urology, if you have an emergent problem with your Mantilla catheter this evening can always return to the emergency department. Referrals: Curry Contreras [Primary Care Provider] - [facility] General Date/Time Provider Initiated Documentation: 05/25/24 19:06 . HPI Narrative: 78 year-old male presents to ED today by POV/ambulating with a chief complaint of Mantilla catheter problem, seen X2 for similar problem here in the ER with a 12 mm bladder stone, has urology follow-up tomorrow 8 AM with onset of catheter being plugged today. Quality described as suprapubic pressure, feels the need to urinate, urine is leaking around the catheter, no radiation to fever, severe abdominal pain, hematuria, at last visit he was diagnosed with UTI and has been on Keflex for 9 days. Severity is described as moderate. Palliating factors include nothing specific. Provoking factors include nothing specific. Patient not anticoagulated. Related Data Home Medications ?Medication ?Instructions ?Recorded ?Confirmed cholecalciferol (vitamin D3) 50 50 mcg PO DAILY 04/06/20 05/15/24 mcg (2,000 unit) capsule propranolol 120 mg capsule,24 120 mg PO DAILY 04/06/20 05/15/24 hr,extended release albuterol sulfate 90 mcg/actuation 2 puff inhalation Q6H PRN 02/04/22 05/15/24 aerosol inhaler shortness of breath or wheezing #8.5 grams fluticasone fur. 100 mcg-umeclid 1 inh inhalation DAILY #60 ea 05/16/22 05/15/24 62.5 mcg-vilant 25 mcg inhalat.powder (Trelegy Ellipta) acetaminophen 500 mg tablet 650 mg (1.3 x 500 mg) PO TID PRN 12/02/22 05/15/24 PRN #0 tabs bisacodyl 5 mg tablet,delayed 5 mg PO ONCE #4 tabs 08/21/23 05/15/24 release (Dulcolax (bisacodyl)) varenicline 1 mg tablet 1 mg PO ONCE 04/30/24 05/15/24 cephalexin 500 mg capsule 500 mg PO QID UTI 10 days #40 caps 05/16/24 Previous Rx's ?Medication ?Instructions ?Recorded albuterol sulfate 90 mcg/actuation 2 puff inhalation Q6H PRN 02/04/22 aerosol inhaler shortness of breath or wheezing #8.5 grams fluticasone fur. 100 mcg-umeclid 1 inh inhalation DAILY #60 ea 05/16/22 62.5 mcg-vilant 25 mcg inhalat.powder (Trelegy Ellipta) acetaminophen 500 mg tablet 650 mg (1.3 x 500 mg) PO TID PRN 12/02/22 PRN #0 tabs bisacodyl 5 mg tablet,delayed 5 mg PO ONCE #4 tabs 08/21/23 release (Dulcolax (bisacodyl)) cephalexin 500 mg capsule 500 mg PO QID UTI 10 days #40 caps 05/16/24 Allergies Allergy/AdvReac Type Severity Reaction Status Date / Time aspirin AdvReac Intermediate GI UPSET Verified 05/25/24 19:12 General Stated Complaint: Urinary NAWAF: 3 Review of Systems All systems reviewed & are unremarkable except as noted in HPI and below Exam Narrative Exam Narrative: GENERAL APPEARANCE: Well-nourished, non-toxic, awake and alert, atraumatic, no acute distress. SKIN: Warm, pink, dry, intact, without rashes/lesions/ulcerations. HEAD: Normocephalic, atraumatic, normal hair distribution for gender/age. EYES: Normal conjunctiva, no exudates on lids/lashes. ENT: Nares patent, no circumoral cyanosis, no facial swelling NECK: Supple, trachea midline, painless cervical ROM. LUNGS/CHEST: Non-labored respirations, normal A/P diameter, symmetrical expansion, no chest wall deformity HEART (CV/PV): No peripheral edema, no JVD. ABDOMEN: Soft, non-distended, no guarding, mild suprapubic pressure, not tender, no CVA tenderness to percussion bilaterally, no urethral meatus discharge or erythema. MSK: Normal ROM, no swelling/deformity to bilateral UEs or LEs, moving all extremities without weakness, no cyanosis, spine midline without tenderness, normal curvature. NEURO: Mental Status AAOx4 - alert to person, place, time, events No facial droop, no forehead involvement. Motor: No focal weakness - strength 5/5 in bilateral UEs and LEs, proximal and distal, symmetric. Sensory: sensation intact to light touch globally. Gait normal: patient ambulated without ataxia into ED room. PSYCH: euthymic, cooperative, pleasant, appropriate speech Course Vital Signs Vital signs: Vital Signs Temperature 36.2 C L 05/25/24 19:09 Pulse 76 05/25/24 19:09 Respiratory Rate 18 05/25/24 19:09 Blood Pressure 139/92 H 05/25/24 19:09 Pulse Oximetry 94 05/25/24 19:09 Temperature 36.2 C L 05/25/24 19:09 Temperature Source Temporal Artery Scan 05/25/24 19:09 Pulse 76 05/25/24 19:09 Respiratory Rate 18 05/25/24 19:09 Respiratory Effort Normal, Non-Labored 05/25/24 19:12 Blood Pressure 139/92 H 05/25/24 19:09 Blood Pressure Position Sitting 05/25/24 19:09 Pulse Oximetry 94 05/25/24 19:09 Pain Level 0 05/25/24 19:09 Medical Decision Making This dictation utilizes [id number]-[id number] dictation software and may contain unedited grammatical errors. 78 year-old male presents to ED today by POV/ambulating with a chief complaint of Mantilla catheter problem, seen X2 for similar problem here in the ER with a 12 mm bladder stone, has urology follow-up tomorrow 8 AM with onset of catheter being plugged today. Quality described as suprapubic pressure, feels the need to urinate, urine is leaking around the catheter, no radiation to fever, severe abdominal pain, hematuria, at last visit he was diagnosed with UTI and has been on Keflex for 9 days. Severity is described as moderate. Palliating factors include nothing specific. Provoking factors include nothing specific. Patients' medical history: Nephrolithiasis, COPD, Mantilla catheter problem, has not sought urology for weeks. Family and social history: Noncontributory. Pertinent exam findings / vital signs include mild suprapubic distention, catheter draining properly once replaced, no CVA tenderness to percussion bilaterally, nontoxic vitals. Differential / pathologies of concern include Mantilla catheter problem. Diagnostic studies of: -None. Interventions of: -Replaced Mantilla catheter. ED Course/Assessment/Plan: 78-year-old male has a 12 mm bladder stone and has not sought urology intervention for couple weeks of multiple visits to the ER, he does have an appointment tomorrow at 8 AM though. He reports that he is taking antibiotics seen on 05/15 for UTI and Mantilla catheter obstruction, it was replaced at that time as well, we replaced his Mantilla catheter again this evening, is draining properly, I think this is a reasonable disposition to follow-up tomorrow at 8 AM, I stressed strict return criteria for any emergent obstructive catheter problem this evening. Findings not consistent with pyelonephritis, worsening infection. Disposition of Mantilla catheter problem. Patient verbalized understanding of the plan and return to ED criteria and engaged in shared decision making. Medical Records Medical records reviewed: Yes I reviewed the patient's medical records. Quality:SDOH Health Related Social Needs: No Data to Display PFSH All Active Problems (Updated 05/25/24 @ 19:42 by AMINTA Pa) Mantilla catheter problem (Acute) Urinary tract infection (Acute) Mantilla catheter problem (Acute) Hematuria (Acute) Encounter for Mantilla catheter replacement (Acute) Acute urinary retention (Acute) Gross hematuria (Acute) Family history of colon cancer (Acute) Anemia (Chronic) Sacral fracture (Acute) Nasal bone fracture (Acute) Advanced care planning/counseling discussion (Acute) TBI (traumatic brain injury) (Acute) Subdural hematoma (Acute) COVID-19 (Acute) Spleen laceration (Acute) Acute cholecystitis (Acute) Bleeding in brain (Acute) Abdominal pain (Acute) Acute blood loss anemia (Acute) Ruptured spleen (Acute) Lethargy (Acute) Fall (Acute) Minor contusion of spleen (Acute) Subarachnoid bleed (Acute) Lumbar transverse process fracture (Acute) 3 vertebrae Nicotine dependence, cigarettes, uncomplicated (Acute) Constipation (Acute) ROE and COPD overlap syndrome (Acute) Rib pain on right side (Acute) Fall as cause of accidental injury at home as place of occurrence (Acute) Anemia, iron deficiency (Acute) Weight loss, abnormal (Acute) Tubular adenoma (Acute 01/29/16) Mass of vallecula (Acute) Pharyngeal dysphagia (Acute) Aspiration into lower respiratory tract (Acute) Vocal cord dysfunction (Acute) Vocal cord paralysis (Acute) Ribs, multiple fractures (Acute 06/05/13) Ribs 7 through 9 Atelectasis (Acute 06/05/13) COPD (chronic obstructive pulmonary disease) (Chronic) Tobacco abuse (Chronic) Ongoing tobacco use, nicotiune replacement not helpful, Chntix helped in the past but could not afford. PFT's performed 07/03/12 with REV1 60% predicted, severe obstrructive disease with no significant bronchodilator response. Sleep apnea (Chronic) Treated with CPAP. Essential tremor (Chronic) Chronic back pain (Chronic) Weight loss (Acute) Dysphagia (Acute) Hyperlipidemia (Chronic) Medical History History of nephrolithiasis Palliative care encounter Shoulder pain, left Polyuria History of broken collarbone right collarbone fx with hardware- per pt 6 years ago Chronic low back pain Colon polyps 01/08/19 w/ Dr Marya Stinson, [facility], tubular adenoma, repeat 3 yrs 01/29/16 w/ Dr. Aleyda Irizarry, 4 tubular adenoma's, repeat 3 years Cigarette smoker Tremor COPD (chronic obstructive pulmonary disease) Hearing loss Sleep apnea Surgical History Hx of surgical procedure clavicle repair Hx of thumb surgery [address]. [address] Family History Mother Colon cancer Social History Smoking/Tobacco Use Status: Current every day Tobacco Type: cigarettes Tobacco: How many years used: 50 Smoking risk assessment performed?: Yes Alcohol Intake: never Drug use: Never Substance use type: does not use Housing: house Do you feel safe at home: Yes (unable to ask privately) Do you feel safe in your relationship?: Yes Additional Social history:
[2024-05-25] MEDS: Lidocaine 2% Jelly 6 ML SYR (19:41)
== END 2024-05-25 19:51 | disposition home or self-care (01) ==
PROVIDERS: Emergency Provider Physician Assistant; PCP Student in an Organized Health Care Education/Training Program
DX: T83.9XXA Unspecified complication of genitourinary prosthetic device, implant and graft, initial encounter (principal)
CPT/HCPCS: 51702; 99283

== ENCOUNTER → 2024-05-26 07:48 | Outpatient (BNVA) | payer OTHER, MEDICARE, SELFPAY | PROVIDERS: PCP Student in an Organized Health Care Education/Training Program; Referring Provider Student in an Organized Health Care Education/Training Program; Visit Provider Nurse Practitioner Gerontology | DX: R31.0 Gross hematuria (principal); R63.4 Abnormal weight loss | CPT/HCPCS: 99214 ==

== ENCOUNTER 2024-06-02 22:03 | Emergency (ER) | payer OTHER, SELFPAY ==
[2024-06-02 22:07] VITALS: BP 133/73; PULSE 68; RESP 20; TEMP 36.3; O2SAT 95
--- NOTE | 2024-06-02 22:20 | W.ED.GENAD ---
Discharge Plan Disposition Patient Disposition: Home Condition: Good Discharge Details Clinical Impression: Irving catheter problem Primary Care Provider: Curry Contreras ED Provider: Paige Pena Home Meds and New Rx's Prescriptions: Continued albuterol sulfate 90 mcg/actuation HFA aerosol inhaler 2 puff inhalation Q6H PRN (Reason: shortness of breath or wheezing) Qty: 8.5 12RF Trelegy Ellipta 100-62.5-25 mcg blister with device 1 inh inhalation DAILY Qty: 60 5RF propranolol 120 mg capsule,extended release 24 hr 120 mg PO DAILY cholecalciferol (vitamin D3) 50 mcg (2,000 unit) capsule 50 mcg PO DAILY acetaminophen 500 mg Tablet 650 mg PO TID PRN PRNQty: 0 0RF varenicline 1 mg tablet 1 mg PO ONCE Discharge Instructions Instructions: Urinary Retention (DC) Additional Instructions: Call Dr. Ragsdale's office in the morning to schedule an appointment for as soon as possible to followup on your visit here. Return to the emergency department for new or worsening symptoms including inability to pee, abdominal pain, pain with urination, fever, or if you have any other concerns. Referrals: [facility] [Provider Group] Curry Contreras [Primary Care Provider] - [facility] General Mode of arrival: ambulatory. Date/Time Provider Initiated Documentation: 06/02/24 22:04. Limitations to Documentation: no limitations. Information obtained by: patient and old records reviewed (urology visit note 05/26/24). HPI Narrative: 78yo M with irving catheter in place for urinary retention, bladder stone, recent treatment for Provedencia UTI completed abx, presenting for leaking from around catheter. States minimal urine going into bag and urine is leaking around the catheter, and that he has been able to void around the catheter. No dysuria or abdominal pain. States his urologist advised him to have his catheter removed at the last visit and see if he was able to void, at that time he did not want to do this but has since changed his mind and would like to have it removed and 'see how it goes'. Otherwise in his usual state of health with no fevers, chills, rash, nausea, vomiting, or other concerns. Related Data Home Medications ?Medication ?Instructions ?Recorded ?Confirmed cholecalciferol (vitamin D3) 50 50 mcg PO DAILY 04/06/20 06/02/24 mcg (2,000 unit) capsule propranolol 120 mg capsule,24 120 mg PO DAILY 04/06/20 06/02/24 hr,extended release albuterol sulfate 90 mcg/actuation 2 puff inhalation Q6H PRN 02/04/22 06/02/24 aerosol inhaler shortness of breath or wheezing #8.5 grams fluticasone fur. 100 mcg-umeclid 1 inh inhalation DAILY #60 ea 05/16/22 06/02/24 62.5 mcg-vilant 25 mcg inhalat.powder (Trelegy Ellipta) acetaminophen 500 mg tablet 650 mg (1.3 x 500 mg) PO TID PRN 12/02/22 06/02/24 PRN #0 tabs varenicline 1 mg tablet 1 mg PO ONCE 04/30/24 06/02/24 Previous Rx's ?Medication ?Instructions ?Recorded albuterol sulfate 90 mcg/actuation 2 puff inhalation Q6H PRN 02/04/22 aerosol inhaler shortness of breath or wheezing #8.5 grams fluticasone fur. 100 mcg-umeclid 1 inh inhalation DAILY #60 ea 05/16/22 62.5 mcg-vilant 25 mcg inhalat.powder (Trelegy Ellipta) acetaminophen 500 mg tablet 650 mg (1.3 x 500 mg) PO TID PRN 12/02/22 PRN #0 tabs Allergies Allergy/AdvReac Type Severity Reaction Status Date / Time aspirin AdvReac Intermediate GI UPSET Verified 06/02/24 22:09 General Stated Complaint: Urinary NAWAF: 4 Review of Systems Narrative: see HPI Exam Narrative Exam Narrative: General: Alert, well appearing, well nourished, in no acute distress. Head: Normocephalic, atraumatic Neck: Trachea midline, ?Neck supple. Cardiac: ?No cyanosis. Resp: No respiratory distress. Speaking in full sentences. Abd: ?Soft, non-distended, nontender : ?No suprapubic tenderness. Irving in place. Extremities: ?No deformities.? No peripheral edema. Neurologic: GCS 15. ? Moves all extremities freely against gravity Course Vital Signs Vital signs: Vital Signs Temperature 36.3 C L 06/02/24 22:07 Pulse 68 06/02/24 22:07 Respiratory Rate 20 06/02/24 22:07 Blood Pressure 133/73 06/02/24 22:07 Pulse Oximetry 95 06/02/24 22:07 Temperature 36.3 C L 06/02/24 22:07 Temperature Source Oral 06/02/24 22:07 Pulse 68 06/02/24 22:07 Respiratory Rate 20 06/02/24 22:07 Respiratory Effort Normal, Non-Labored 06/02/24 22:09 Blood Pressure 133/73 06/02/24 22:07 Blood Pressure Position Sitting 06/02/24 22:07 Pulse Oximetry 95 06/02/24 22:07 Oxygen Delivery Method Room Air 06/02/24 22:07 Oxygen Flow Rate 0 06/02/24 22:07 Pain Level 3 06/02/24 22:10 Medical Decision Making 78yo M with irving catheter in place for urinary retention suspected 2/t to bladder stone, recent treatment for Provedencia UTI completed abx, presenting for leaking from around catheter, voiding around catheter, requesting that we remove the irving today. Urology visit note 05/26/24 reviewed, irving removal and void trial considered at that time however patient elected not to. Vital signs reassuring on arrival, bladder scan for ~24cc, scant amount of clear yellow urine in bag. Irving removed, pt declined to have it replaced which is not unreasonable. He was advised to call urology in the morning to followup. The importance of re-presenting to the emergency department for urinary retention was stressed. Discharged home; discharge isntructions and return precautions were reviewed with patient who verbalized understanding. All questions were answered and he is in full agreement with the plan. Quality:SDOH Health Related Social Needs: No Data to Display PFSH All Active Problems (Updated 06/02/24 @ 22:29 by Paige Pena MD) Irving catheter problem (Acute) Irving catheter problem (Acute) Urinary tract infection (Acute) Irving catheter problem (Acute) Gross hematuria (Acute) Family history of colon cancer (Acute) Anemia (Chronic) Sacral fracture (Acute) Nasal bone fracture (Acute) Advanced care planning/counseling discussion (Acute) TBI (traumatic brain injury) (Acute) Subdural hematoma (Acute) COVID-19 (Acute) Spleen laceration (Acute) Acute cholecystitis (Acute) Bleeding in brain (Acute) Abdominal pain (Acute) Acute blood loss anemia (Acute) Ruptured spleen (Acute) Lethargy (Acute) Fall (Acute) Minor contusion of spleen (Acute) Subarachnoid bleed (Acute) Lumbar transverse process fracture (Acute) 3 vertebrae Nicotine dependence, cigarettes, uncomplicated (Acute) Constipation (Acute) ROE and COPD overlap syndrome (Acute) Rib pain on right side (Acute) Fall as cause of accidental injury at home as place of occurrence (Acute) Anemia, iron deficiency (Acute) Weight loss, abnormal (Acute) Tubular adenoma (Acute 01/29/16) Mass of vallecula (Acute) Pharyngeal dysphagia (Acute) Aspiration into lower respiratory tract (Acute) Vocal cord dysfunction (Acute) Vocal cord paralysis (Acute) Ribs, multiple fractures (Acute 06/05/13) Ribs 7 through 9 Atelectasis (Acute 06/05/13) COPD (chronic obstructive pulmonary disease) (Chronic) Tobacco abuse (Chronic) Ongoing tobacco use, nicotiune replacement not helpful, Chntix helped in the past but could not afford. PFT's performed 07/03/12 with REV1 60% predicted, severe obstrructive disease with no significant bronchodilator response. Sleep apnea (Chronic) Treated with CPAP. Essential tremor (Chronic) Chronic back pain (Chronic) Weight loss (Acute) Dysphagia (Acute) Hyperlipidemia (Chronic) Medical History History of nephrolithiasis Palliative care encounter Shoulder pain, left Polyuria History of broken collarbone right collarbone fx with hardware- per pt 6 years ago Chronic low back pain Colon polyps 01/08/19 w/ Dr Marya Stinson, [facility], tubular adenoma, repeat 3 yrs 01/29/16 w/ Dr. Aleyda Irizarry, 4 tubular adenoma's, repeat 3 years Cigarette smoker Tremor COPD (chronic obstructive pulmonary disease) Hearing loss Sleep apnea Surgical History Hx of surgical procedure clavicle repair Hx of thumb surgery [address]. [address] in [address] Family History Mother Colon cancer Social History Smoking/Tobacco Use Status: Current every day Tobacco Type: cigarettes Tobacco: How many years used: 50 Smoking risk assessment performed?: Yes Alcohol Intake: never Drug use: Never Substance use type: does not use Housing: house Do you feel safe at home: Yes (unable to ask privately) Do you feel safe in your relationship?: Yes Additional Social history:
== END 2024-06-02 22:39 | disposition home or self-care (01) ==
PROVIDERS: Emergency Provider Student in an Organized Health Care Education/Training Program; PCP Student in an Organized Health Care Education/Training Program
DX: T83.9XXA Unspecified complication of genitourinary prosthetic device, implant and graft, initial encounter (principal); N39.0 Urinary tract infection, site not specified; R33.8 Other retention of urine; N21.0 Calculus in bladder
CPT/HCPCS: 51798; 99283

== ENCOUNTER 2024-06-07 11:27 | Outpatient (REF) | payer OTHER, SELFPAY ==
[2024-06-07 12:07] LABS: Bilirubin Small (Negative); Blood Large (Negative); Clarity Cloudy (Clear); Glucose Negative (Negative); Ketones Negative (Negative); Leukocyte Esterase Trace (Negative); Nitrite Negative (Negative); Specific Gravity <= 1.005 (1.005-1.025); Urobilinogen 0.2 mg/dL (Up to 0.2); pH >= 9.0 (5-8)
[2024-06-07 12:31] LABS: RBC >50 HPF (0-2)
[2024-06-07 12:32] LABS: Bacteria Many HPF (Negative); Epithelial Cells Few HPF (Negative); Other Cells Rare Renal (Negative)
[2024-06-07 12:33] LABS: C & S Indicated? C&S Done As Ordered; Casts Negative LPF (Negative); Crystals Many Triple Phos HPF (Negative); Mucus Trace (Negative)
== END 2024-06-07 11:28 | disposition home or self-care (01) ==
LOC: LBN 11:27
PROVIDERS: PCP Student in an Organized Health Care Education/Training Program; Visit Provider Urology
DX: R30.0 Dysuria (principal); R31.9 Hematuria, unspecified
CPT/HCPCS: 81003; 81015; 87086

== ENCOUNTER → 2024-06-23 07:49 | Outpatient (BNVA) | payer OTHER, SELFPAY | PROVIDERS: PCP Student in an Organized Health Care Education/Training Program; Visit Provider Nurse Practitioner Gerontology ==

== ENCOUNTER 2024-06-23 09:03 | Outpatient (CLI) | payer OTHER, SELFPAY ==
[2024-06-23 09:20] LABS: HCT 40.5 % (40.0-50.0); HGB 12.8 g/dL (13.5-17.5); MCH 27.4 pg (27.0-33.0); MCHC 31.6 % (32.0-36.0); MCV 87 fL (80-95); MPV 8.8 fL (8.0-11.0); Platelet Count 430 10^3/uL (130-400); RBC 4.67 10^6/uL (4.36-5.78); RDW 16.9 % (11.8-14.1); RDW-SD 53.2 fL; WBC 8.01 10^3/uL (4.4-10.8)
== END 2024-06-23 09:04 | disposition home or self-care (01) ==
LOC: LBO 09:03
PROVIDERS: PCP Student in an Organized Health Care Education/Training Program; Referring Provider Nurse Practitioner Gerontology; Visit Provider Nurse Practitioner Gerontology
DX: R31.0 Gross hematuria (principal); D64.9 Anemia, unspecified
CPT/HCPCS: 36415; 51798; 85027; 99213

== ENCOUNTER 2024-08-20 14:47 | Outpatient (REF) | payer MEDICARE, SELFPAY ==
[2024-08-20 16:12] LABS: Abs Immature Grans 0.02 10^3/uL (0.0-0.06); Absolute Basophil Count 0.06 10^3/uL (0.0-0.2); Absolute Eosinophil Count 0.13 10^3/uL (0.0-0.7); Absolute Lymphocyte Count 1.21 10^3/uL (1.2-3.4); Absolute Monocyte Count 0.89 10^3/uL (0.1-0.8); Absolute Neutrophil Count 5.86 10^3/uL (1.2-6.7); Basophils % 0.7 %; Eosinophils % 1.6 %; HCT 42.2 % (40.0-50.0); HGB 13.4 g/dL (13.5-17.5); Immature Grans % 0.2 %; Lymphocytes % 14.8 %; MCH 27.7 pg (27.0-33.0); MCHC 31.8 % (32.0-36.0); MCV 87 fL (80-95); MPV 10.7 fL (8.0-11.0); Monocytes % 10.9 %; Neutrophils % 71.8 %; Platelet Count 367 10^3/uL (130-400); RBC 4.83 10^6/uL (4.36-5.78); RDW 17.5 % (11.8-14.1); RDW-SD 56.5 fL; WBC 8.17 10^3/uL (4.4-10.8)
[2024-08-20 17:15] LABS: ALT 31 U/L (16-63); AST 26 U/L (15-37); Albumin 3.2 g/dL (3.4-5.0); Alkaline Phosphatase 89 U/L (46-116); Anion Gap 8.1 mmol/L (3-11); BUN 22 mg/dL (7-18); Bilirubin, Total 0.67 mg/dL (0.2-1.0); CO2 28.9 mmol/L (21.0-32.0); CREATININE 1.2 mg/dL (0.70-1.30); Chloride 104 mmol/L (98-107); Estimated GFR 62.67 (mL/min/1.73m2); Ferritin 54 ng/mL (26-388); Glucose 101 mg/dL (74-106); Potassium 4.5 mmol/L (3.5-5.1); Sodium 141 mmol/L (136-145); TSH (W/Ref FT4) 1.18 uIU/mL (0.36-3.74); Total Protein 7.5 g/dL (6.4-8.2)
[2024-08-20 17:34] LABS: Iron 53 ug/dL (65-175); Total Iron Binding Capacity 299 ug/dL (250-450); Transferrin Sat 18 % (20-55)
== END 2024-08-20 14:48 | disposition home or self-care (01) ==
LOC: NCHCN 14:47
PROVIDERS: PCP Student in an Organized Health Care Education/Training Program; Visit Provider Student in an Organized Health Care Education/Training Program
DX: D64.9 Anemia, unspecified (principal)
CPT/HCPCS: 80053; 82728; 83540; 83550; 84443; 85025

== ENCOUNTER 2024-09-21 14:00 | Outpatient (REF) | payer MEDICARE, SELFPAY | END 2024-09-21 14:01 | disposition home or self-care (01) | LOC: LBN 14:00 | PROVIDERS: PCP Student in an Organized Health Care Education/Training Program; Visit Provider Urology | DX: R30.0 Dysuria (principal) | CPT/HCPCS: 87086 ==

== ENCOUNTER → 2024-11-02 10:33 | Outpatient (BNVA) | payer MEDICARE, SELFPAY | PROVIDERS: PCP Student in an Organized Health Care Education/Training Program; Referring Provider Student in an Organized Health Care Education/Training Program; Visit Provider Physician Assistant Surgical | DX: J44.9 Chronic obstructive pulmonary disease, unspecified (principal); F17.210 Nicotine dependence, cigarettes, uncomplicated; G47.33 Obstructive sleep apnea (adult) (pediatric) | CPT/HCPCS: 99214; G0296 ==

== ENCOUNTER 2024-12-08 00:35 | Outpatient (CLI) | payer MEDICARE, SELFPAY ==
--- NOTE | 2024-12-08 06:45 | DI.CTLCSR_ITS ---
Exam(s) CT CHEST LUNG CANCER SCREEN EXAM: CT CHEST LUNG CANCER SCREEN CLINICAL HISTORY: Screening for lung cancer,cigarette nicotine dependence,f17.210 TECHNIQUE: Imaging Protocol: Axial computed tomography images with coronal and sagittal reformatted images were created and reviewed. Low dose screening protocol. COMPARISON: CT CT CHEST LUNG CANCER SCREEN from 12/05/2023 FINDINGS: Tracheobronchial tree: No bronchiectasis or mucus plugging. Mediastinum and Alma Delia: No dominant adenopathy or fluid collection. Pulmonary parenchyma: No consolidation or dominant measurable mass. Moderate to severe emphysematous changes, greater in the upper lobes.. No significant interstitial changes. Lung Nodules: None. Pleura: No effusion. No pneumothorax. Heart: The heart is not dilated. Moderate coronary artery calcifications are seen. No pericardial eff usion. Aorta: Thoracic aorta non-dilated. Upper abdomen: Unremarkable. Large cyst at upper pole of left kidney. Metallic density again note d left upper quadrant. Bones: Spine unremarkable for age. Fixation plate again noted in right clavicle. Soft Tissues: Unremarkable. IMPRESSION: No suspicious pulmonary nodules. Lung RADS Cat 1 - Negative: No nodules and definitely benign nodules Lung-RADS 1.0 CATEGORIES: Category 0 - Prior chest CT exam(s) being located for comparison. Category 1 - Annual screening in 12 months. No nodules or definitely benign nodules. Category 2 - Annual screening in 12 months. Benign appearance. Nodules with low likelihood of becomin g active cancer. Category 3 - 6-month follow-up. Probably benign. Short-term follow-up suggested. Nodules with low lik elihood of becoming active cancer. Category 4A - 3-month follow-up and CT/PET if >8 mm in size. Suspicious finding. Findings which requi re additional testing. Category 4B - Findings which require additional testing and tissue sampling. Category 4X - Category 3 or 4 nodules with additional features or imaging findings that increases the suspicion of malignancy. Modifier S- Potentially clinically significant findings (non lung cancer) RADIATION DOSE DELIVERED: !Error Total DLP DATA REPOSITORY: All CT scans at this facility are submitted to the National Radiology Data Registry (NRDR) Dose Index Registry (DIR) with the [employer] ([employer]). RADIATION OPTIMIZATION: All CT scans at this facility use at least one of these dose optimization te chniques: automated exposure control; mA and/or kV adjustment per patient size (includes targeted exa ms where dose is matched to clinical indication); or iterative reconstruction.
== END 2024-12-08 00:55 ==
LOC: DI 00:35
PROVIDERS: PCP Student in an Organized Health Care Education/Training Program; Visit Provider Physician Assistant Surgical
DX: F17.210 Nicotine dependence, cigarettes, uncomplicated (principal); Z12.2 Encounter for screening for malignant neoplasm of respiratory organs
CPT/HCPCS: 71271

== ENCOUNTER → 2025-05-09 09:26 | Outpatient (BNVA) | payer MEDICARE, SELFPAY | PROVIDERS: PCP Student in an Organized Health Care Education/Training Program; Referring Provider Student in an Organized Health Care Education/Training Program; Visit Provider Physician Assistant Surgical | DX: G47.33 Obstructive sleep apnea (adult) (pediatric) (principal); J44.9 Chronic obstructive pulmonary disease, unspecified; F17.211 Nicotine dependence, cigarettes, in remission | CPT/HCPCS: 99214 ==